=== PATIENT | female | born 1940 | race Caucasian/White ===

== ENCOUNTER → 2017-05-09 09:01 | Outpatient (CLI) | payer MEDICARE, SELFPAY ==
[2017-02-10 11:50] VITALS: BMI 35.9
[2017-02-10 13:02] VITALS: BP 142/69
[2017-05-09 10:07] LABS: AST(SGOT) 37 U/L (15-37); Alanine Aminotransfer ALT/SGPT 67 U/L (13-56); Albumin, Serum 3.8 g/dL (3.2-5.0); Alkaline Phosphatase 48 U/L (45-117); Bilirubin, Direct 0.11 mg/dL (0.00-0.30); Cholesterol 94 mg/dL (200); Globulin 3.5 g/dL (2.2-4.2); High Density Lipoprotein 33 mg/dL; Protein, Total 7.3 g/dL (6.4-8.2); Triglycerides 181 mg/dL; Very Low Density Lipoprotein 36 mg/dL (5-40)
== END ==
PROVIDERS: Family Provider Family Medicine; PCP Family Medicine; Visit Provider Internal Medicine Cardiovascular Disease
DX: E78.5 Hyperlipidemia, unspecified (principal); Z79.899 Other long term (current) drug therapy
CPT/HCPCS: 36415; 80061; 80076

== ENCOUNTER 2017-05-26 06:31 | Day surgery (SDC) | payer MEDICARE, SELFPAY ==
[2017-05-26 06:56] VITALS: BP 134/80; PULSE 73; RESP 16; TEMP 37; O2SAT 97; BMI 35.2
--- NOTE | 2017-05-26 08:07 | RAD_ITS ---
PROCEDURE: Lumbar facet injection DATE OF EXAMINATION: May 26, 2017. INDICATION: Female, 76 years old. Low back pain. FLUOROSCOPY TIME (if supplied): (0:15) minutes/seconds Intraoperative fluoroscopic images provided for left L3-S1 facet joint block. RAD/Lumbar Spine 2 or 3 Views IMPRESSION: Fluoroscopic services provided for left L3-S1 facet joint block. Electronically Signed: Tavon Bermudez MD at 10:02 EST Tel [phone], Service support ,
[2017-05-26] MEDS: Bupivacaine 0.25% 30 ML Vial (08:09)
[2017-05-26] MEDS: MethylPREDNISolone Acetate 80 MG/ML Vial (08:09)
[2017-05-26 08:19] VITALS: BP 108/55; BP 134/80; PULSE 62; RESP 14; TEMP 36.8; O2SAT 94
[2017-05-26 08:25] VITALS: BP 105/57; BP 134/80; PULSE 62; RESP 16; O2SAT 95
[2017-05-26 08:30] VITALS: BP 112/64; BP 134/80; PULSE 62; RESP 16; O2SAT 93
[2017-05-26 08:35] VITALS: BP 115/59; BP 134/80; PULSE 60; RESP 16; TEMP 36.3; O2SAT 94
[2017-05-26 09:02] VITALS: BP 134/80
--- NOTE | 2017-05-26 11:06 | OP.PCM_ITS ---
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 (2) Lumbosacral spondylosis Status: Chronic (3) Lumbar facet arthropathy Status: Chronic Report of Operation Date of Procedure: 05/26/17 Pre-Operative Diagnosis: Lumbosacral spondylosis, lumbosacral degenerative disc disease, lumbar facet arthropathy Post-Operative Diagnosis: Lumbosacral spondylosis, lumbosacral degenerative disc disease, lumbar facet arthropathy Surgery/Procedure Performed:: Right sided lumbar facet steroid injection L3, L4 , L5, S1 Description of Surgical Findings:: PROCEDURE: Right-sided lumbar facet steroid injection L3, L4, L5, S1 PREOPERATIVE DIAGNOSIS: Lumbosacral spondylosis, lumbosacral degenerative disc disease, and lumbar facet arthropathy POSTOPERATIVE DIAGNOSIS: Lumbosacral spondylosis, lumbosacral degenerative disc disease, and lumbar facet arthropathy ANESTHESIA: MAC COMPLICATIONS: None BLOOD LOSS: Minimal PROCEDURE IN DETAIL: History and physical today was reviewed. Risks and benefits of the procedure were explained. The patient understood, agreed to our procedure, and informed consent was obtained. IV inserted per routine protocol. The patient was taken to the operating room, placed in a prone position with a pillow positioned underneath the abdomen. The right side of his lower back was prepped and draped in a sterile fashion using iodine x3. Under fluoroscopy guidance, on AP view, L3 through S1 vertebral bodies were visualized. Skin and subcutaneous tissues were anesthetized with approximately 5 mL of 1% lidocaine using a 25-gauge regular needle. Under direct visualization with fluoroscopy at approximately 25-degree angle, starting on the right L3, ending on the right S1, passing through the L4-L5 using a 22-gauge 3 1/2-inch spinal needle, the needle was advanced via the skin. The tip of the needle was maneuvered and directed towards the superior and medial gutter of the transverse process at the vicinity of the medial branch. Once the tip of the needle was in contact with the bone, the needle pulled approximately 2 mm off the bone. After negative aspiration of blood with CSF and confirmation of AP as well as oblique view, a total of 8 mL of preservative-free 0.25% Marcaine with 80 mg of Depo- Medrol was injection in divided doses between those 4 levels. The needles were then removed intact. The patient experienced no signs or symptoms intrathecal, intravascular injection. The patient experienced no paraesthesia. The procedure was completed without any apparent difficult, any complication. The patient appeared to tolerate well. ASSESSMENT AND PLAN: This is a 76-year-old female with lumbosacral spondylosis, lumbosacral degenerative disc disease, and lumbar facet arthropathy, status post right-sided lumbar facet steroid injection L3 through S1. The patient will continue her current medications. The patient will follow in approximately 2 weeks for possible repeat of the procedure if indicated.
== END 2017-05-26 09:05 | disposition home or self-care (01) ==
LOC: SDC 06:32 → AC 06:34
PROVIDERS: Family Provider Family Medicine; PCP Family Medicine; Visit Provider Anesthesiology Pain Medicine
PROC: 3E0T3BZ Introduction of Anesthetic Agent into Peripheral Nerves and Plexi, Percutaneous Approach (ICD-10-PCS; CPT 64493; principal; 2017-05-26 07:45)
DX: M51.37 Other intervertebral disc degeneration, lumbosacral region (principal); M47.897 Other spondylosis, lumbosacral region; M48.061 Spinal stenosis, lumbar region without neurogenic claudication; M54.17 Radiculopathy, lumbosacral region; M47.817 Spondylosis without myelopathy or radiculopathy, lumbosacral region; M46.96 Unspecified inflammatory spondylopathy, lumbar region; M79.1 Myalgia; Z79.891 Long term (current) use of opiate analgesic; I25.10 Atherosclerotic heart disease of native coronary artery without angina pectoris; I35.0 Nonrheumatic aortic (valve) stenosis; I25.2 Old myocardial infarction; I10 Essential (primary) hypertension; Z95.1 Presence of aortocoronary bypass graft; J44.9 Chronic obstructive pulmonary disease, unspecified; Z87.891 Personal history of nicotine dependence; Z95.5 Presence of coronary angioplasty implant and graft; G25.81 Restless legs syndrome; K21.9 Gastro-esophageal reflux disease without esophagitis; E78.00 Pure hypercholesterolemia, unspecified; G47.30 Sleep apnea, unspecified; E89.0 Postprocedural hypothyroidism; D50.0 Iron deficiency anemia secondary to blood loss (chronic); Z79.82 Long term (current) use of aspirin; Z79.899 Other long term (current) drug therapy; Z85.828 Personal history of other malignant neoplasm of skin
CPT/HCPCS: 64493; 64494; 64495; 64483; 72100; J7120

== ENCOUNTER 2017-06-23 08:46 | Day surgery (SDC) | payer MEDICARE, SELFPAY ==
[2017-06-23 09:26] VITALS: BP 96/55; PULSE 64; RESP 16; TEMP 36.6; O2SAT 99; BMI 35.4
--- NOTE | 2017-06-23 09:55 | RAD_ITS ---
STUDY: X-RAY/FLUOROSCOPY - LUMBAR SPINE REASON FOR EXAM: Female, 76 years old. Lumbar facet blocks. TECHNIQUE: Fluoroscopic assistance was provided to Dr. Cardona. 5 fluoroscopic spot view(s) of the lumbar spine were obtained. COMPARISON: None FINDINGS: Images demonstrate successful percutaneous placement of needles for facet injections on the same side from L3 to S1. RAD/L/S Spine Min 4 Views IMPRESSION: Fluoroscopic guidance for percutaneous facet blocks L3-S1. Electronically Signed: Antonio Cruz MD at 14:03 EDT , Service support ,
[2017-06-23] MEDS: MethylPREDNISolone Acetate 80 MG/ML Vial (10:01)
[2017-06-23] MEDS: Bupivacaine 0.25% 30 ML Vial (10:01)
[2017-06-23 10:11] VITALS: BP 103/52; BP 96/55; PULSE 62; RESP 16; TEMP 36.9; O2SAT 95
[2017-06-23 10:15] VITALS: BP 101/59; BP 96/55; PULSE 60; RESP 16; O2SAT 93
[2017-06-23 10:20] VITALS: BP 119/64; BP 96/55; PULSE 62; RESP 16; O2SAT 94
[2017-06-23 10:25] VITALS: BP 120/66; BP 96/55; PULSE 60; RESP 16; TEMP 36.5; O2SAT 95
[2017-06-23 10:40] VITALS: BP 96/55
--- NOTE | 2017-06-23 10:46 | OP.PCM_ITS ---
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 (2) Lumbosacral spondylosis Status: Chronic Report of Operation Date of Procedure: 06/23/17 Pre-Operative Diagnosis: Lumbosacral spondylosis, lumbosacral degenerative disc disease, lumbar facet arthropathy Post-Operative Diagnosis: Lumbosacral spondylosis, lumbosacral degenerative disc disease, lumbar facet arthropathy Surgery/Procedure Performed:: Right-sided lumbar facet steroid injection L3, L4 , L5, S1 Description of Surgical Findings:: PROCEDURE: Right-sided lumbar facet steroid injection L3, L4, L5, S1 PREOPERATIVE DIAGNOSIS: Lumbosacral spondylosis, lumbosacral degenerative disc disease, and lumbar facet arthropathy POSTOPERATIVE DIAGNOSIS: Lumbosacral spondylosis, lumbosacral degenerative disc disease, and lumbar facet arthropathy ANESTHESIA: MAC COMPLICATIONS: None BLOOD LOSS: Minimal PROCEDURE IN DETAIL: History and physical today was reviewed. Risks and benefits of the procedure were explained. The patient understood, agreed to our procedure, and informed consent was obtained. IV inserted per routine protocol. The patient was taken to the operating room, placed in a prone position with a pillow positioned underneath the abdomen. The right side of his lower back was prepped and draped in a sterile fashion using iodine x3. Under fluoroscopy guidance, on AP view, L3 through S1 vertebral bodies were visualized. Skin and subcutaneous tissues were anesthetized with approximately 5 mL of 1% lidocaine using a 25-gauge regular needle. Under direct visualization with fluoroscopy at approximately 25-degree angle, starting on the right L3, ending on the right S1, passing through the L4-L5 using a 22-gauge 3 1/2-inch spinal needle, the needle was advanced via the skin. The tip of the needle was maneuvered and directed towards the superior and medial gutter of the transverse process at the vicinity of the medial branch. Once the tip of the needle was in contact with the bone, the needle pulled approximately 2 mm off the bone. After negative aspiration of blood with CSF and confirmation of AP as well as oblique view, a total of 8 mL of preservative-free 0.25% Marcaine with 80 mg of Depo- Medrol was injection in divided doses between those 4 levels. The needles were then removed intact. The patient experienced no signs or symptoms intrathecal, intravascular injection. The patient experienced no paraesthesia. The procedure was completed without any apparent difficult, any complication. The patient appeared to tolerate well. ASSESSMENT AND PLAN: This is a 76-year-old female with lumbosacral spondylosis, lumbosacral degenerative disc disease and lumbar facet arthropathy, status post right-sided lumbar facet steroid injection L3 through S1. The patient will continue her current medications. The patient will follow in approximately 2 weeks for possible repeat of the procedure if indicated.
== END 2017-06-23 10:45 | disposition home or self-care (01) ==
LOC: SDC 08:47 → AC 08:48
PROVIDERS: Family Provider Family Medicine; PCP Family Medicine; Visit Provider Anesthesiology Pain Medicine
PROC: 3E0T3BZ Introduction of Anesthetic Agent into Peripheral Nerves and Plexi, Percutaneous Approach (ICD-10-PCS; CPT 64493; principal; 2017-06-23 10:20)
DX: M51.37 Other intervertebral disc degeneration, lumbosacral region (principal); M47.817 Spondylosis without myelopathy or radiculopathy, lumbosacral region; J44.9 Chronic obstructive pulmonary disease, unspecified; E03.9 Hypothyroidism, unspecified; I25.2 Old myocardial infarction; I25.10 Atherosclerotic heart disease of native coronary artery without angina pectoris; M54.17 Radiculopathy, lumbosacral region; M12.9 Arthropathy, unspecified; M46.96 Unspecified inflammatory spondylopathy, lumbar region; M79.1 Myalgia; Z79.891 Long term (current) use of opiate analgesic; Z79.82 Long term (current) use of aspirin; Z87.891 Personal history of nicotine dependence; I10 Essential (primary) hypertension; K21.9 Gastro-esophageal reflux disease without esophagitis; E78.00 Pure hypercholesterolemia, unspecified
CPT/HCPCS: 01935; 64493; 64494; 64495; 64483; 72110; J7120

== ENCOUNTER 2017-07-21 09:49 | Day surgery (SDC) | payer MEDICARE, SELFPAY ==
[2017-07-21 10:21] VITALS: BP 136/57; PULSE 61; RESP 16; TEMP 36.6; O2SAT 96; BMI 35.7
--- NOTE | 2017-07-21 11:10 | RAD_ITS ---
STUDY: Fluoroscopy LUMBAR SPINE REASON FOR EXAM: Female, 76 years old. Fluoroscopic imaging interpretation only TECHNIQUE: 11 fluoroscopic view(s) of the lumbar spine were obtained. COMPARISON: None FINDINGS: 11 fluoroscopic images are provided. There is a marker next to the level of L3-L4 and L5. On this examination there is radiopaque needle markers adjacent to the L3 L4 L5 and S1. RAD/Lumbar Spine 2 or 3 Views IMPRESSION: 11 fluoroscopic images showing metallic markers at different levels for procedure. Electronically Signed: Katie Samuels MD at 17:02 EDT Tel , Service support ,
[2017-07-21] MEDS: MethylPREDNISolone Acetate 80 MG/ML Vial (11:15)
[2017-07-21] MEDS: Bupivacaine 0.25% 30 ML Vial (11:16)
[2017-07-21 11:33] VITALS: BP 112/62; BP 136/57; PULSE 65; RESP 16; TEMP 36.2; O2SAT 94
[2017-07-21 11:40] VITALS: BP 136/57; BP 99/63; PULSE 62; RESP 16; O2SAT 92
[2017-07-21 11:45] VITALS: BP 105/71; BP 136/57; PULSE 62; RESP 16; O2SAT 92
[2017-07-21 11:50] VITALS: BP 110/61; BP 136/57; PULSE 63; RESP 16; TEMP 36.4; O2SAT 94
[2017-07-21 12:35] VITALS: BP 136/57
--- NOTE | 2017-07-21 15:58 | PCM.OPRPT ---
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 (2) Lumbar facet arthropathy Status: Chronic (3) Lumbosacral spondylosis Status: Chronic Report of Operation Date of Procedure: 07/21/17 Pre-Operative Diagnosis: Lumbosacral spondylosis, lumbosacral degenerative disc disease, lumbar facet arthropathy Post-Operative Diagnosis: Lumbosacral spondylosis, lumbosacral degenerative disc disease, lumbar facet arthropathy Surgery/Procedure Performed:: Right sided lumbar radiofrequency ablation of the medial branch L3, L4, L5, S1 Description of Surgical Findings:: PROCEDURE: Right-sided radiofrequency ablation of the medial branch L3, L4, L5, S1 PREOPERATIVE DIAGNOSES: Lumbosacral spondylosis, lumbosacral degenerative disc disease, lumbar facet arthropathy POSTOPERATIVE DIAGNOSES: Lumbosacral spondylosis, lumbosacral degenerative disc disease, lumbar facet arthropathy ANESTHESIA: MAC COMPLICATIONS: None BLOOD LOSS: Minimal PROCEDURE IN DETAIL: History and physical today was reviewed. Risks and benefits of procedure explained. The patient understood, agreed to the procedure and informed consent was obtained. IV inserted per routine protocol. The patient was taken to the operating room, placed in the prone position with a pillow positioned underneath the abdomen. The right side of the lower back was prepped and draped in a sterile fashion using iodine x 3. Under fluoroscopy guidance, on an oblique view, the L3 through S1 vertebral bodies were visualized. The skin and subcutaneous tissue was anesthetized with approximately 10 mL of 1% lidocaine using a 25-gauge regular needle. Under direct visualization with fluoroscopy at approximately 25-degree angle, starting on the right L3, ending on the right S1 passing through the L4-L5 using a 20-gauge 15 cm with a 10 mm curved active tip radiofrequency ablation needle the needle passed through the skin. The tip of the needle was maneuvered and directed towards the superior and medial gutter of the transverse process at the vicinity of the medial branch. Once the tip of the needle was in contact with the bone, the needle pulled approximately 2 mm up the bone. The stylet of each needle was then removed. After negative aspiration of blood with CSF and confirmation of AP as well as oblique view, radiofrequency ablation probe was then inserted at each level. Impedance was then recorded at L3 to be 303, at L4 245, at L5 323, at S1 261 ohm. Motor-evoked potential was then initiated to 1.5 volt without any motor response at each corresponding level. The probe was then removed intact and a total of 6 mL preservative-free 1% lidocaine was injected in divided doses between those 4 levels after negative aspiration of blood with CSF. The radiofrequency ablation probe was then reinserted after confirmation of AP, oblique as well as lateral view. Radiofrequency ablation was then initiated to 80 degrees Celsius for 90 seconds at each level. Once concluded, the probe was then removed intact and a total of 6 mL of preservative-free 0.25% Marcaine with 40 mg Depo-Medrol was injected in divided doses between those 4 levels. The needles were then removed intact. The patient experienced no signs or symptoms of intrathecal, intravascular injection. The patient experienced no paraesthesia. The procedure was completed without any apparent difficulty, any complication. The patient appeared to tolerate well. Sensory as well as motor exam was unchanged from prior to procedure. ASSESSMENT AND PLAN: This is a 76-year-old Female with lumbosacral spondylosis, lumbosacral degenerative disc disease, lumbar facet arthropathy, status post right-sided radiofrequency ablation of the medial branch L3 through S1. The patient will continue her current medications. The patient will follow up in approximately 2 weeks for reevaluation.
== END 2017-07-21 12:35 | disposition home or self-care (01) ==
LOC: SDC 09:52 → AC 10:38
PROVIDERS: Family Provider Family Medicine; PCP Family Medicine; Visit Provider Anesthesiology Pain Medicine
PROC: (CPT 62282; principal; 2017-07-21 10:55)
DX: M51.17 Intervertebral disc disorders with radiculopathy, lumbosacral region (principal); J44.9 Chronic obstructive pulmonary disease, unspecified; M12.9 Arthropathy, unspecified; M47.817 Spondylosis without myelopathy or radiculopathy, lumbosacral region; M46.96 Unspecified inflammatory spondylopathy, lumbar region; M79.1 Myalgia; Z79.891 Long term (current) use of opiate analgesic; I25.10 Atherosclerotic heart disease of native coronary artery without angina pectoris; I10 Essential (primary) hypertension; E03.9 Hypothyroidism, unspecified; I25.2 Old myocardial infarction; Z95.5 Presence of coronary angioplasty implant and graft; Z87.891 Personal history of nicotine dependence; Z79.82 Long term (current) use of aspirin
CPT/HCPCS: 01992; 62282 ×4; 72100; 72110; 76000; J7120

== ENCOUNTER → 2017-07-31 09:46 | Outpatient (CLI) | payer MEDICARE, SELFPAY ==
--- NOTE | 2017-07-31 13:21 | PFT ---
INTRODUCTION: The patient is a 76-year-old female currently under the care of Yenifer Cope NP that presents for pulmonary function testing secondary to a diagnosis of COPD. Respiratory therapy reports good patient effort and reports no other concerns. Bronchodilators were used during testing. INTERPRETATION: Forced expiration spirometry demonstrates the presence of a mild large airways obstructive ventilatory defect. There was no significant response to aerosolized bronchodilators. Spirograms are of fair quality and do not plateau indicating slow emptying of the lungs. Body plethysmography was performed and reveals an elevated TLC and RV, indicative of underlying hyperinflation and air-trapping. Diffusing capacity by single breath CO is moderately reduced at 55% of predicted. 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
--- NOTE | 2017-07-31 13:25 | PFT_ITS ---
INTRODUCTION: The patient is a 76-year-old female currently under the care of Yenifer Cope NP that presents for pulmonary function testing secondary to a diagnosis of COPD. Respiratory therapy reports good patient effort and reports no other concerns. Bronchodilators were used during testing. INTERPRETATION: Forced expiration spirometry demonstrates the presence of a mild large airways obstructive ventilatory defect. There was no significant response to aerosolized bronchodilators. Spirograms are of fair quality and do not plateau indicating slow emptying of the lungs. Body plethysmography was performed and reveals an elevated TLC and RV, indicative of underlying hyperinflation and air- trapping. Diffusing capacity by single breath CO is moderately reduced at 55% of predicted. 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
== END ==
PROVIDERS: Family Provider Family Medicine; PCP Family Medicine; Visit Provider Nurse Practitioner Acute Care
DX: J44.9 Chronic obstructive pulmonary disease, unspecified (principal); G47.33 Obstructive sleep apnea (adult) (pediatric)
CPT/HCPCS: 94060; 94726; 94729

== ENCOUNTER → 2017-08-01 10:48 | Outpatient (CLI) | payer MEDICARE, SELFPAY ==
[2017-08-01 11:33] VITALS: PULSE 61; PULSE 64; PULSE 84; PULSE 85; PULSE 87; PULSE 88; PULSE 90; PULSE 92; O2SAT 94; O2SAT 95; O2SAT 96; O2SAT 97; O2SAT 98
--- NOTE | 2017-08-01 12:16 | PCM.PSN.6M ---
PSN 6 Minute Walk Test - 6 Minute Walk Test 6 Minute Walk Test: 6 Minute Walk Test PSN:6-Minute Walk Test Start: 08/01/17 11:32 Freq: Status: Active Protocol: [id number] Document 08/01/17 11:33 [facility] (Rec: 08/01/17 11:37 [facility] [id number]) 6 Minute Walk Test Date Performed 08/01/17 Time Performed 11:15 Height 5 ft Weight: 180 lb Weight in Pounds 180.[address]: Yenifer Cope Assistive device used: None Pre-test Oxygen Delivery Method Room Air Pulse Ox (%) 98 Pulse Rate (60-100 beats/min) 61 Dyspnea Lula Scale (0-10) 0 1st minute Oxygen Delivery Method Room Air Pulse Ox (%) 96 Pulse Rate (60-100 beats/min) 84 Dyspnea Lula Scale (0-10) 0 2nd minute Oxygen Delivery Method Room Air Pulse Ox (%) 95 Pulse Rate (60-100 beats/min) 85 Dyspnea Lula Scale (0-10) 0 3rd minute Oxygen Delivery Method Room Air Pulse Ox (%) 94 Pulse Rate (60-100 beats/min) 87 Dyspnea Lula Scale (0-10) 0 4th minute Oxygen Delivery Method Room Air Pulse Ox (%) 96 Pulse Rate (60-100 beats/min) 88 Dyspnea Lula Scale (0-10) 0 5th minute Oxygen Delivery Method Room Air Pulse Ox (%) 95 Pulse Rate (60-100 beats/min) 90 Dyspnea Lula Scale (0-10) 0 6th minute Oxygen Delivery Method Room Air Pulse Ox (%) 96 Pulse Rate (60-100 beats/min) 92 Dyspnea Lula Scale (0-10) 0 Post-test Oxygen Delivery Method Room Air Pulse Ox (%) 97 Pulse Rate (60-100 beats/min) 64 Dyspnea Lula Scale (0-10) 0 Full Laps Walked 20 Partial Lap, Number of Tiles Walked 114 Total Distance Walked (ft) 1294 - Interpretation Interpretation: The patient ambulated 1294 feet over the course of 6 minutes on room air without assistive devices or breaks. Pretesting oxygen saturation was noted to be 98% on room air. With ambulation, the francoise oxygen saturation was 94%. 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 - Recommendations Recommendations: There is no indication for the use of supplemental oxygen at this time. However, close interval follow-up is recommended given the degree of oxygen desaturation noted during this study.
== END ==
PROVIDERS: Family Provider Family Medicine; PCP Family Medicine; Visit Provider Nurse Practitioner Acute Care
DX: J44.9 Chronic obstructive pulmonary disease, unspecified (principal); G47.33 Obstructive sleep apnea (adult) (pediatric)
CPT/HCPCS: 94618

== ENCOUNTER 2017-08-25 09:19 | Day surgery (SDC) | payer MEDICARE, SELFPAY ==
[2017-08-25 09:38] VITALS: BP 134/76; PULSE 65; RESP 14; TEMP 36; O2SAT 98; BMI 35.6
[2017-08-25] MEDS: Bupivacaine 0.25% 30 ML Vial (10:09)
[2017-08-25] MEDS: MethylPREDNISolone Acetate 80 MG/ML Vial (10:10)
--- NOTE | 2017-08-25 10:10 | RAD_ITS ---
STUDY: X-RAY - LUMBAR SPINE REASON FOR EXAM: Female, 76 years old. Documentation of fluoroscopic radiation dose during radiofrequency ablation. TECHNIQUE: 6 view(s) of the lumbar spine were obtained. COMPARISON: Radiographs of the lumbar spine dated July 21, 2017. FINDINGS: Twenty four seconds of fluoroscopic radiation was utilized during the procedure. Estimated dose is 9.67 mGy. Please see procedure report by Dr. Cardona for additional details. RAD/L/S Spine Min 4 Views IMPRESSION: Documentation of fluoroscopic radiation dose. Electronically Signed: Pepper Merritt MD at 8:00 EDT , Service support ,
[2017-08-25 10:20] VITALS: BP 124/69; BP 134/76; PULSE 58; RESP 18; TEMP 36.2; O2SAT 97
[2017-08-25 10:25] VITALS: BP 114/68; BP 134/76; PULSE 58; RESP 18; O2SAT 92
[2017-08-25 10:30] VITALS: BP 134/67; BP 134/76; PULSE 59; RESP 18; O2SAT 96
[2017-08-25 10:35] VITALS: BP 116/70; BP 134/76; PULSE 57; RESP 18; TEMP 36.2; O2SAT 96
[2017-08-25 10:43] VITALS: BP 116/70; BP 134/76
--- NOTE | 2017-08-25 13:20 | PCM.OPRPT ---
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 (2) Lumbar facet arthropathy Status: Chronic (3) Lumbosacral spondylosis Status: Chronic Report of Operation Date of Procedure: 08/25/17 Pre-Operative Diagnosis: Lumbosacral spondylosis, lumbosacral degenerative disc disease, lumbar facet arthropathy Post-Operative Diagnosis: Lumbosacral spondylosis, lumbosacral degenerative disc disease, lumbar facet arthropathy Surgery/Procedure Performed:: Left sided lumbar radiofrequency ablation of the medial branch at L3, L4, L5, S1 Description of Surgical Findings:: PROCEDURE: Left-sided radiofrequency ablation of the medial branch L3, L4, L5, S1 PREOPERATIVE DIAGNOSES: Lumbosacral spondylosis, lumbosacral degenerative disc disease, lumbar facet arthropathy POSTOPERATIVE DIAGNOSES: Lumbosacral spondylosis, lumbosacral degenerative disc disease, lumbar facet arthropathy ANESTHESIA: MAC COMPLICATIONS: None BLOOD LOSS: Minimal PROCEDURE IN DETAIL: History and physical today was reviewed. Risks and benefits of procedure explained. The patient understood, agreed to the procedure and informed consent was obtained. IV inserted per routine protocol. The patient was taken to the operating room, placed in the prone position with a pillow positioned underneath the abdomen. The right side of the lower back was prepped and draped in a sterile fashion using iodine x 3. Under fluoroscopy guidance, on an oblique view, the L3 through S1 vertebral bodies were visualized. The skin and subcutaneous tissue was anesthetized with approximately 10 mL of 1% lidocaine using a 25-gauge regular needle. Under direct visualization with fluoroscopy at approximately 25-degree angle, starting on the left L3, ending on the left S1 passing through the L4-L5 using a 20-gauge 15 cm with a 10 mm curved active tip radiofrequency ablation needle the needle passed through the skin. The tip of the needle was maneuvered and directed towards the superior and medial gutter of the transverse process at the vicinity of the medial branch. Once the tip of the needle was in contact with the bone, the needle pulled approximately 2 mm up the bone. The stylet of each needle was then removed. After negative aspiration of blood with CSF and confirmation of AP as well as oblique view, radiofrequency ablation probe was then inserted at each level. Impedance was then recorded at L3 to be 247, at L4 252, at L5 291, at S1 248 ohm. Motor-evoked potential was then initiated to 1.5 volt without any motor response at each corresponding level. The probe was then removed intact and a total of 6 mL preservative-free 1% lidocaine was injected in divided doses between those 4 levels after negative aspiration of blood with CSF. The radiofrequency ablation probe was then reinserted after confirmation of AP, oblique as well as lateral view. Radiofrequency ablation was then initiated to 80 degrees Celsius for 90 seconds at each level. Once concluded, the probe was then removed intact and a total of 6 mL of preservative-free 0.25% Marcaine with 40 mg Depo-Medrol was injected in divided doses between those 4 levels. The needles were then removed intact. The patient experienced no signs or symptoms of intrathecal, intravascular injection. The patient experienced no paraesthesia. The procedure was completed without any apparent difficulty, any complication. The patient appeared to tolerate well. Sensory as well as motor exam was unchanged from prior to procedure. ASSESSMENT AND PLAN: This is a 76-year-old female with lumbosacral spondylosis, lumbosacral degenerative disc disease, lumbar facet arthropathy, status post left-sided radiofrequency ablation of the medial branch L3 through S1. The patient will continue her current medications. The patient will follow up in approximately 2 weeks for reevaluation.
== END 2017-08-25 10:57 | disposition home or self-care (01) ==
LOC: SDC 09:22 → AC 10:11
PROVIDERS: Family Provider Family Medicine; PCP Family Medicine; Visit Provider Anesthesiology Pain Medicine
PROC: (CPT 62282; principal; 2017-08-25 10:05)
DX: M47.817 Spondylosis without myelopathy or radiculopathy, lumbosacral region (principal); M51.37 Other intervertebral disc degeneration, lumbosacral region; M46.96 Unspecified inflammatory spondylopathy, lumbar region; J44.9 Chronic obstructive pulmonary disease, unspecified; E03.9 Hypothyroidism, unspecified; I25.10 Atherosclerotic heart disease of native coronary artery without angina pectoris; I25.2 Old myocardial infarction; Z87.891 Personal history of nicotine dependence; Z79.891 Long term (current) use of opiate analgesic; M79.1 Myalgia
CPT/HCPCS: 62282 ×3; 72110; 76000; J7120

== ENCOUNTER → 2017-12-04 10:17 | Outpatient (CLI) | payer MEDICARE, SELFPAY ==
[2017-12-04 12:31] LABS: AST(SGOT) 31 U/L (15-37); Alanine Aminotransfer ALT/SGPT 69 U/L (13-56); Albumin, Serum 3.6 g/dL (3.2-5.0); Alkaline Phosphatase 37 U/L (45-117); Bilirubin, Direct 0.12 mg/dL (0.00-0.30); Cholesterol 103 mg/dL (200); Globulin 3.6 g/dL (2.2-4.2); High Density Lipoprotein 30 mg/dL; Protein, Total 7.2 g/dL (6.4-8.2); Triglycerides 146 mg/dL; Very Low Density Lipoprotein 29 mg/dL (5-40)
== END ==
PROVIDERS: Family Provider Family Medicine; PCP Family Medicine; Visit Provider Internal Medicine Cardiovascular Disease
DX: I25.810 Atherosclerosis of coronary artery bypass graft(s) without angina pectoris (principal); E78.5 Hyperlipidemia, unspecified; Z95.5 Presence of coronary angioplasty implant and graft; Z95.1 Presence of aortocoronary bypass graft
CPT/HCPCS: 36415; 80061; 80076

== ENCOUNTER → 2017-12-12 13:23 | Outpatient (CLI) | payer MEDICARE, SELFPAY | PROVIDERS: Family Provider Family Medicine; PCP Family Medicine; Visit Provider Internal Medicine Cardiovascular Disease | DX: I25.2 Old myocardial infarction (principal); Z95.1 Presence of aortocoronary bypass graft; Z95.5 Presence of coronary angioplasty implant and graft; I25.810 Atherosclerosis of coronary artery bypass graft(s) without angina pectoris; Z95.2 Presence of prosthetic heart valve | CPT/HCPCS: 93306; A4216 ==

== ENCOUNTER → 2017-12-17 09:23 | Outpatient (CLI) | payer MEDICARE, SELFPAY ==
--- NOTE | 2017-12-17 09:25 | STE_ITS ---
Reason For Study: CHEST PAIN Stress Results Protocol: Dobutamine Stress Echocardiogram Maximum Predicted HR: 142 bpm Target HR: 121 bpm% Maximum Predicted HR: 92 % DurationHeart Rate Stage (mm:ss) (bpm) BPDos e BASELINE 55 150/60 DSE- 10 MCG 3:12 66 146/6510.00 DSE- 20 MCG 3:47 10 7 134/8120.00 DSE- 30 MCG 2:01 13 1 165/5330.00 RECOVERY 71 133/46 Stress Duration: 9:00 mm:ss Maximum Stress HR: 131 bpm Baseline Echocardiogram Findings The 3D full volume ejection fraction is 65 %. Stress Echo Wall motion Data Resting WMIntermediate WMStress WM Resting Wall Motion Wall Motion Stress No regional wall motion No regional wall motion abnormalities noted. abnormalities noted. EKG Data The baseline ECG demonstrates normal sinus rhythm with at rate of _ beats per minute. The patient was titrated from 10 mcg to a maximun of 30 mcg of dobutamine during the stress. The maximum heart rate attained was 131 beats per minute. This was 92% of maximum predicted heart rate. During dobutamine infusion, there were no ST or T wave changes noted to suggest ischemia. No clinical angina was noted. No arrhythmias noted. Interpretation Summary The 3D full volume ejection fraction is 65 %. The patient was titrated from 10 mcg to a maximun of 30 mcg of dobutamine during the stress. Normal, adequate, dobutamine echocardiogram. Negative for ischemia by EKG and echocardiographic criteria. No anginal symptoms noted. No arrhythmias noted. Appropriate blood pressure response to dobutamine. Final LVEF is 75%. Test terminated due to the attainment of target heart rate. Ordering Physician: Noe Rodriguez Referring Physician: Noe Rodriguez Performed By: Erin Levine, EAN, RVT
== END ==
PROVIDERS: Family Provider Family Medicine; PCP Family Medicine; Visit Provider Internal Medicine Cardiovascular Disease
DX: I25.810 Atherosclerosis of coronary artery bypass graft(s) without angina pectoris (principal); R07.9 Chest pain, unspecified; R06.09 Other forms of dyspnea; Z95.2 Presence of prosthetic heart valve
CPT/HCPCS: 93017; 93350; J7040

== ENCOUNTER 2018-01-19 09:13 | Day surgery (SDC) | payer MEDICARE, SELFPAY ==
[2018-01-19 10:04] VITALS: BP 156/75; PULSE 60; RESP 14; TEMP 36.1; O2SAT 97; BMI 34.9
--- NOTE | 2018-01-19 10:15 | RAD_ITS ---
STUDY: X-RAY - RIGHT KNEE REASON FOR EXAM: Female, 77 years old. Genicular nerve injection TECHNIQUE: 3 view(s) of the knee. COMPARISON: None. FINDINGS: Intraoperative spot fluoroscopy images demonstrate needle placement around the right knee. No evidence of fracture. Total fluoroscopy time of 9 seconds. RAD/Fluoro Guided Needle Placement IMPRESSION: As above Electronically Signed: Willian De La Cruz DO at 10:08 EDT Tel , Service support ,
[2018-01-19] MEDS: MethylPREDNISolone Acetate 80 MG/ML Vial (10:30)
[2018-01-19] MEDS: Bupivacaine 0.5% PF 10 ML VIAL (10:30)
[2018-01-19 10:41] VITALS: BP 100/52; BP 156/75; PULSE 58; RESP 16; TEMP 36.3; O2SAT 93
[2018-01-19 10:45] VITALS: BP 156/75; BP 96/50; PULSE 58; RESP 16; O2SAT 92
[2018-01-19 10:50] VITALS: BP 104/62; BP 156/75; PULSE 55; RESP 16; O2SAT 93
[2018-01-19 10:55] VITALS: BP 111/49; BP 156/75; PULSE 55; RESP 16; TEMP 36.2; O2SAT 93
--- NOTE | 2018-01-19 15:55 | OP.PCM_ITS ---
Problem List (1) Unilateral primary osteoarthritis, right knee Status: Chronic Report of Operation Date of Procedure: 01/19/18 Pre-Operative Diagnosis: Osteoarthritis of the right knee Post-Operative Diagnosis: Osteoarthritis of the right knee Surgery/Procedure Performed:: Right knee superior medial, superior lateral, inferior medial genicular nerves steroid injection under fluoroscopic guidance Description of Surgical Findings:: PROCEDURE: Right knee superior medial, superior lateral, inferior medial genicular nerve steroid injection under fluoroscopic guidance PREOPERATIVE DIAGNOSIS: Osteoarthritis of the right knee POSTOPERATIVE DIAGNOSIS: Osteoarthritis of the right knee ANESTHESIA: MAC COMPLICATIONS: None BLOOD LOSS: Minimal PROCEDURE IN DETAIL: History and physical today was reviewed. Risks and benefits of the procedure were explained. The patient understood, agreed to our procedure, and informed consent was obtained. IV inserted per routine protocol. The patient was taken to the operating room, placed in a supine position the right knee area was prepped and draped in a sterile fashion using iodine x3 under fluoroscopy guidance AP view the right knee was visualized the skin and subcutaneous tissue and size approximately 5 cc of 1% lidocaine at the vicinity of the superior medial superior lateral inferior medial genicular nerves under direct visualization fluoroscopy on AP followed by the lateral view using a 22-gauge 3-1/2 inch spinal needle starting at the right superior medial ending at the right inferior medial passing through the right superior lateral genicular nerves the needle passed through the skin the tip of the needle's maneuver and directed towards the each corresponding nerve once the tip of the needle was at the diaphyseal junction of each corresponding area after confirmation of AP as well as lateral view after negative aspiration for blood a total of 12 cc of preservative-free 0.25% Marcaine with 80 mg of Depo- Medrol were injected in divided doses between those 3 levels the needles were then removed intact patient experienced no sinus symptoms of intravascular injection patient experienced no paresthesia. The procedure was completed without any apparent difficult, any complication. The patient appeared to tolerate well. ASSESSMENT AND PLAN: This is a 77-year-old female with osteoarthritis of the right knee status post right knee superior medial superior lateral inferior medial genicular nerve steroid injection under fluoroscopic guidance . The patient will continue her current medications. The patient will follow in approximately 2 weeks for possible repeat of the procedure if indicated.
== END 2018-01-19 11:19 | disposition home or self-care (01) ==
LOC: SDC 09:14 → AC 09:35
PROVIDERS: Family Provider Family Medicine; PCP Family Medicine; Referring Provider Anesthesiology Pain Medicine; Visit Provider Anesthesiology Pain Medicine
PROC: 3E0U3GC Introduction of Other Therapeutic Substance into Joints, Percutaneous Approach (ICD-10-PCS; CPT 20610; principal; 2018-01-19 10:10)
DX: M17.11 Unilateral primary osteoarthritis, right knee (principal); J44.9 Chronic obstructive pulmonary disease, unspecified; I25.10 Atherosclerotic heart disease of native coronary artery without angina pectoris; E03.9 Hypothyroidism, unspecified; I25.2 Old myocardial infarction; Z87.891 Personal history of nicotine dependence; M51.37 Other intervertebral disc degeneration, lumbosacral region; M54.17 Radiculopathy, lumbosacral region; M47.817 Spondylosis without myelopathy or radiculopathy, lumbosacral region; M46.96 Unspecified inflammatory spondylopathy, lumbar region; Z79.891 Long term (current) use of opiate analgesic
CPT/HCPCS: 01992; 27096; 76000; 77002; J7120; J3490

== ENCOUNTER → 2018-07-02 10:40 | Outpatient (CLI) | payer MEDICARE, SELFPAY ==
[2018-06-18 13:14] VITALS: BMI 34.2
[2018-07-02 12:54] LABS: AST(SGOT) 27 U/L (15-37); Alanine Aminotransfer ALT/SGPT 50 U/L (13-56); Albumin, Serum 3.9 g/dL (3.2-5.0); Alkaline Phosphatase 47 U/L (45-117); Cholesterol 115 mg/dL (200); Globulin 3.4 g/dL (2.2-4.2); High Density Lipoprotein 35 mg/dL; Protein, Total 7.3 g/dL (6.4-8.2); Triglycerides 134 mg/dL; Very Low Density Lipoprotein 27 mg/dL (5-40)
== END ==
PROVIDERS: Family Provider Family Medicine; PCP Family Medicine; Visit Provider Internal Medicine Cardiovascular Disease
DX: E78.5 Hyperlipidemia, unspecified (principal)
CPT/HCPCS: 36415; 80061; 80076

== ENCOUNTER → 2018-07-16 14:05 | Outpatient (CLI) | payer MEDICARE, SELFPAY ==
[2018-02-23 09:28] VITALS: BMI 34.9
[2018-07-02 11:03] VITALS: BMI 33.7
--- NOTE | 2018-07-16 14:11 | BI_ITS ---
MAMMOGRAPHY - BILATERAL SCREENING REASON FOR EXAM: Female, 77 years old. Routine annual screening examination. PERTINENT HISTORY: Sister with breast cancer. Aunt with breast cancer. TECHNIQUE: Digital bilateral breast sobeida (3D mammographic acquisition) in the CC and MLO projections. 2-D mediolateral oblique (MLO) and craniocaudad (CC) views of both breasts were obtained. CAD: Full Field Digital Mammography with Computer Added Detection was performed. COMPARISON: Comparison is made with prior study dated May 08, 2016 and April 11, 2015. FINDINGS: Breast Composition: There are scattered areas of fibroglandular density. There is a 6.3 mm x 7.6 mm well-defined nodule in the inferior medial retroareolar region of the left breast. Correlation with ultrasound is recommended. Stable asymmetry of breast tissue with more breast tissue is seen in the upper outer quadrant of the left breast as compared to the right side. This is unchanged. Stable bilateral axillary lymph nodes as well as scattered bilateral calcifications. No other significant abnormalities are identified. BI/SCREENING MAMM (CAD), BILAT IMPRESSION: 6.3 mm x 7.6 mm well-defined nodule in the inferior medial retroareolar region of the left breast correlation with ultrasound is recommended. The remainder of examination is unchanged. ASSESSMENT CATEGORY: BIRADS Category 0: Incomplete. Need additional imaging evaluation. A letter regarding these results will be sent to the patient by the facility within 30 days. Approximately 10% of breast cancers are not detected by mammography. A normal mammogram should not delay biopsy of a clinically suspicious abnormality. [id number] Electronically Signed: Tavon Bermudez, at 15:50 EDT , Service support ,
--- NOTE | 2018-07-16 14:19 | BD_ITS ---
STUDY: DUAL ENERGY X-RAY ABSORPTIOMETRY / DXA REASON FOR EXAM: Female, 77 years old. The patient is postmenopausal. Loss of height. TECHNIQUE: Bone Mineral Density (BMD) measurements of lumbar spine and bilateral hips were obtained. COMPARISON: Comparison is made with prior examination dated April 11, 2015. FINDINGS: Lumbar Spine (L1-L4): g/cm2 (1.315) / T-score (1.0) / Z-score (2.8) Findings are suggestive of normal bone density with a low fracture risk. Left Femur Total: g/cm2 (1.008) / T-score (0.0) / Z-score (1.9) Left Femoral Neck: g/cm2 (0.863) / T-score (-1.3) / Z-score (0.8) Right Femur Total: g/cm2 (0.941) / T-score (-0.5) / Z-score (1.4) Right Femoral Neck: g/cm2 (0.807) / T-score (-1.7) / Z-score (0.4) The T-Scores on the most recent prior examination were: Lumbar Spine (L1-L4): There has been worsening of bone density since the previous examination. Left Femur Total: which represents a worsening of 7.3%. Right Femur Total: which represents a worsening of 2.4%. BD/Dexa Bone Density Study IMPRESSION: The patient is considered osteopenic as outlined below according to World [employer] Organization (WHO) criteria with a moderate fracture risk. There has been worsening of bone density since the previous examination. Reference Information: The T-score is the number of standard deviations above or below the standard which is normal for young adults at their peak bone mineral density. The World Health Organization (WHO) interprets the T-scores as follows: Above -1 Normal bone density Between -1 and -2.5 Osteopenia Equal to / or below -2.5 Osteoporosis As a practical clinical guideline, osteopenia may be graded as follows: Mild -1 through -1.5 Moderate -1.6 through -2.0 Severe -2.1 through -2.4 The Z-score is the number of standard deviations above or below age-matched controls. A Z-score of less than -1.5 would be considered abnormal. References: 1. NIH Osteoporosis and Related Bone Diseases http://www.osteo.org 2. International Society for Clinical Densitometry http://www.iscd.org 3. National Osteoporosis Foundation http://www.nof.org Electronically Signed: Tavon Bermudez, at 9:33 EDT , Service support ,
== END ==
PROVIDERS: Family Provider Family Medicine; PCP Family Medicine; Referring Provider Family Medicine; Visit Provider Family Medicine
DX: Z12.31 Encounter for screening mammogram for malignant neoplasm of breast (principal); Z78.0 Asymptomatic menopausal state
CPT/HCPCS: 77063; 77067; 77080

== ENCOUNTER → 2018-08-05 10:30 | Outpatient (CLI) | payer MEDICARE, SELFPAY ==
[2018-02-23 09:28] VITALS: BMI 34.9
[2018-07-17 09:33] VITALS: BMI 34.2
[2018-08-05 11:16] VITALS: PULSE 68; PULSE 72; PULSE 78; PULSE 83; PULSE 89; O2SAT 94; O2SAT 95; O2SAT 96
--- NOTE | 2018-08-05 13:16 | US_ITS ---
STUDY: ULTRASOUND BREAST - LEFT REASON FOR EXAM: Female, 77 years old. Abnormal screening mammogram. TECHNIQUE: Axial and longitudinal images of the LEFT breast were performed with a high resolution ultrasound transducer. COMPARISON: Comparison is made with prior mammogram dated July 16, 2018. FINDINGS: LEFT Breast: The mammographic abnormality corresponds to a 6 mm x 7 mm x 4 mm hypoechoic fine nodule at the 9:00 position of the breast at 1 cm from the nipple. This most likely represents a small fibroadenoma. A biopsy is recommended for further evaluation. US/Breast Limited Unilateral IMPRESSION: The mammographic abnormality corresponds to a well-defined subcentimeter hypoechoic nodule as described. This most likely represents a fibroadenoma although a biopsy is recommended for further evaluation. ASSESSMENT CATEGORY: BIRADS Category 4: Suspicious - Biopsy Should Be Considered. A letter regarding these results will be sent to the patient by the facility within 30 days. Electronically Signed: Tavon Bermudez, at 15:04 EDT , Service support ,
--- NOTE | 2018-08-05 15:06 | PCM.PSN.6M ---
PSN 6 Minute Walk Test - 6 Minute Walk Test 6 Minute Walk Test: 6 Minute Walk Test PSN:6-Minute Walk Test Start: 08/05/18 11:15 Freq: Status: Active Protocol: RESP.6MINW Document 08/05/18 11:16 AUDREY (Rec: 08/05/18 11:20 AUDREY [id number]) 6 Minute Walk Test Date Performed 08/05/18 Time Performed 11:00 Height 5 ft Weight: 77.111 kg Weight in Pounds 170.[address]: Branden Bowers Assistive device used: None Pre-test Oxygen Delivery Method Room Air Pulse Ox (%) 95 Pulse Rate (60-100 beats/min) 68 Dyspnea Lula Scale (0-10) 0 Exertion Lula Scale (6-20) 6 1st minute Oxygen Delivery Method Room Air Pulse Ox (%) 95 Pulse Rate (60-100 beats/min) 78 2nd minute Oxygen Delivery Method Room Air Pulse Ox (%) 95 Pulse Rate (60-100 beats/min) 83 3rd minute Oxygen Delivery Method Room Air Pulse Ox (%) 94 Pulse Rate (60-100 beats/min) 89 4th minute Oxygen Delivery Method Room Air Pulse Ox (%) 95 Pulse Rate (60-100 beats/min) 89 5th minute Oxygen Delivery Method Room Air Pulse Ox (%) 95 Pulse Rate (60-100 beats/min) 89 6th minute Oxygen Delivery Method Room Air Pulse Ox (%) 95 Pulse Rate (60-100 beats/min) 89 Dyspnea Lula Scale (0-10) 0.5 Exertion Lula Scale (6-20) 11 Post-test Oxygen Delivery Method Room Air Pulse Ox (%) 96 Pulse Rate (60-100 beats/min) 72 Full Laps Walked 18 Partial Lap, Number of Tiles Walked 0 Total Distance Walked (ft) 1062 - Interpretation Interpretation: The patient was able to ambulate 1062 feet over the course of 6 minutes on room air with no assistive devices or breaks. No significant desaturation or tachycardia was noted. These findings are consistent with deconditioning. - Recommendations Recommendations: No supplemental oxygen is indicated at this time.
== END ==
PROVIDERS: Family Provider Family Medicine; PCP Family Medicine; Referring Provider Nurse Practitioner Acute Care; Visit Provider Nurse Practitioner Acute Care
DX: J44.9 Chronic obstructive pulmonary disease, unspecified (principal); N63.20 Unspecified lump in the left breast, unspecified quadrant; R92.8 Other abnormal and inconclusive findings on diagnostic imaging of breast
CPT/HCPCS: 76642; 94618

== ENCOUNTER → 2018-08-07 12:17 | Outpatient (CLI) | payer MEDICARE, SELFPAY ==
[2018-02-23 09:28] VITALS: BMI 34.9
[2018-07-17 09:33] VITALS: BMI 34.2
--- NOTE | 2018-08-07 14:14 | PFTCOMP ---
COMPLETE PULMONARY FUNCTION TEST INTERPRETATION Brief HPI: Patient is a 77 year old female, currently under the care of myself, who presents to [facility] for complete pulmonary function tests secondary to diagnosis of COPD. Respiratory therapist reports good effort and reproducible results. Interpretation: Forced expiration spirometry shows no mild large airways obstructive ventilatory defect with an FEV1 of 89% predicted. There is no significant bronchodilator response by strict ATS criteria. Spirograms are of good quality and plateau slowly, indicating slowly emptying areas of the lungs. The respiratory flow volume loop shows decreased expiratory flow rates at all lung volumes consistent with airway obstruction. Lung volumes by body plethysmography show a normal total lung capacity at 4.25 L, 108% predicted. All other lung volumes are within normal limits. Diffusion capacity by carbon monoxide is normal at 73% predicted. The airway resistance is elevated. Compared to previous pulmonary function tests from 07/31/2017, there is been a significant improvement in DLCO by 27% and improved air trapping.. Impression: Irreversible mild large airways obstructive ventilatory defect with significant improvement in DLCO compared to previous.
== END ==
PROVIDERS: Family Provider Family Medicine; PCP Family Medicine; Referring Provider Nurse Practitioner Acute Care; Visit Provider Nurse Practitioner Acute Care
DX: J44.9 Chronic obstructive pulmonary disease, unspecified (principal)
CPT/HCPCS: 94060; 94726; 94729

== ENCOUNTER → 2018-08-12 16:00 | Outpatient (CLI) | payer MEDICARE, SELFPAY ==
[2018-07-17 09:33] VITALS: BMI 34.2
--- NOTE | 2018-08-12 15:25 | BRBX_PTH ---
PATIENT: LOUIS BOWERS LOC: [facility] U#:[id number] AGE/SX: 84/F ROOM: RE08/12/[address]: Dr. Haider Schmitt MD : [id number] BED: DIS: SPEC #: [id number] RECD: 08/12/18 15:59 STATUS: RUTH AMY #: [id number] REED: 08/12/18 15:[address]: Haider Schmitt DEPT: SURGICAL PATHOLOGY RECD BY: Chano Chambers ENTERED: 08/13/18 08:19 SP TYPE: BREAST BX OTHR DR: Dr. Rupert Osullivan MD Tissues: Left breast, NOS Procedures: Surgery Specimen Level IV HEADER OPERATION: Ultrasound-guided needle core biopsy, left breast PRE-OP DIAGNOSIS: Abnormal ultrasound left breast TISSUE SUBMITTED: Left breast tissue ISCHEMIC TIME: 1 minute FIXATION TIME: 28 hours MICROSCOPIC DIAGNOSIS Left breast tissue, ultrasound-guided needle core biopsy: Hyalinized fibroadenoma. Negative for atypia or malignancy. MYRANDA:julia 08/14/18 COMMENT Correlation with clinical, radiologic findings and appropriate follow up are necessary. MICROSCOPIC DESCRIPTION Slides are reviewed. GROSS DESCRIPTION Received in fixative is one container labeled with the patient's name and designated left breast tissue. The specimen consists of multiple irregular fragments of ibanez-yellow to reddish-pink soft tissue that in aggregate measure 1.5 x 0.8 x 0.4 cm. The specimen is totally submitted in one cassette. / CE:julia 08/13/18 TC:1 CPT: 93673
== END ==
PROVIDERS: Family Provider Family Medicine; PCP Family Medicine; Referring Provider Surgery; Visit Provider Surgery
DX: R92.8 Other abnormal and inconclusive findings on diagnostic imaging of breast (principal)
CPT/HCPCS: 88305

== ENCOUNTER → 2019-01-14 10:08 | Outpatient (CLI) | payer MEDICARE, SELFPAY ==
[2019-01-14 09:25] VITALS: BMI 35.5
[2019-01-14 12:57] LABS: AST(SGOT) 21 U/L (15-37); Alanine Aminotransfer ALT/SGPT 40 U/L (13-56); Albumin, Serum 3.7 g/dL (3.2-5.0); Alkaline Phosphatase 41 U/L (45-117); Bilirubin, Direct 0.07 mg/dL (0.00-0.30); Cholesterol 124 mg/dL (200); Globulin 3.2 g/dL (2.2-4.2); High Density Lipoprotein 38 mg/dL; Protein, Total 6.9 g/dL (6.4-8.2); Triglycerides 154 mg/dL; Very Low Density Lipoprotein 31 mg/dL (5-40)
== END ==
PROVIDERS: Family Provider Family Medicine; PCP Family Medicine; Visit Provider Internal Medicine Cardiovascular Disease
DX: E78.00 Pure hypercholesterolemia, unspecified (principal)
CPT/HCPCS: 36415; 80061; 80076

== ENCOUNTER → 2019-01-15 07:56 | Outpatient (CLI) | payer MEDICARE, SELFPAY ==
[2018-12-31 14:58] VITALS: BMI 35.3
[2019-01-14 09:25] VITALS: BMI 35.5
--- NOTE | 2019-01-15 07:58 | ECHOD_ITS ---
Reason For Study: VALVE REPL Procedure This was a 2D Doppler, Color Flow transthoracic echocardiogram. Exam performed in department. Left Ventricle Normal size and thickness. The estimated ejection fraction is 65 %. Stage 2 diastolic dysfunction. No regional wall motion abnormalities noted. Right Ventricle Normal size and thickness. Normal systolic function. Atria The left atrium is mildly enlarged. Normal right atrium. Normal atrial septum. Mitral Valve Mild diffuse mitral valve thickening. Severe mitral annular calcification extending into the posterior leaflet. Trivial mitral valve insufficiency. Tricuspid Valve Normal tricuspid valve. Mild (1+) tricuspid valve insufficiency. Right ventricular systolic pressure estimated to be 31 mmHg. Aortic Valve Peak aortic valve gradient 14 mmHg. Mean aortic valve gradient 9 mmHg. Stable appearing bioprosthetic aortic valve apparatus. Pulmonic Valve Normal pulmonic valve. Trivial pulmonic valve insufficiency. Great Vessels Normal aortic root. Normal arch. Normal inferior vena cava. Inferior vena cava collapse with sniff. Pericardium/Pleural No pericardial effusion. MMode/2D Measurements & Calculations LVIDd: 4.7 cm IVSd: 1.1 cm LVOT diam: 2.0 cm LVIDs: 3.2 cm LVPWd: 1.0 cm LVOT area: 3.3 cm2 RVDd: 3.1 cm FS: 32.1 % Ao root diam: 3.3 cm LAV(MOD-bp): 66.3 ml LA A4 area: 21.7 cm2 LAV(MOD-bp) Indexed: 37.1 ml/m2 LAV(MOD-sp2): 55.2 ml LAV(MOD-sp4): 70.4 ml LA dimension(2D): 4.6 cm RA A4 area: 13.7 cm2 Time Measurements MV dec time: 0.20 sec Doppler Measurements & Calculations MV E max shelton: 104.6 cm/sec Lat Peak E' Shelton: 7.9 cm/sec Med Peak E' Shelton: 4.9 cm/sec MV A max shelton: 85.0 cm/sec E/E' lat: 13.3 E/E' med: 21.3 MV E/A: 1.2 MV V2 max: 108.0 cm/sec Ao V2 max: 183.0 cm/sec LV V1 max: 87.2 cm/sec MV max P.7 mmHg Ao max P.4 mmHg LV V1 max P.0 mmHg MV V2 mean: 58.7 cm/sec Ao V2 mean: 136.7 cm/sec LV V1 mean P.8 mmHg MV mean P.7 mmHg Ao mean P.0 mmHg LV V1 mean: 64.6 cm/sec MV V2 VTI: 36.4 cm Ao V2 VTI: 42.0 cm LV V1 VTI: 20.5 cm MVA(VTI): 1.9 cm2 JOSEPH(I,D): 1.6 cm2 JOSEPH(V,D): 1.6 cm2 SV(LVOT): 67.7 ml PA V2 max: 127.1 cm/sec PI end-d shelton: 80.0 cm/sec TR max shelton: 241.8 cm/sec MV P1/2t-pr_phl: 163.4 msec TR max P.4 mmHg Interpretation Summary The estimated ejection fraction is 65 %. Stage 2 diastolic dysfunction. Trivial mitral valve insufficiency. Mild (1+) tricuspid valve insufficiency. Right ventricular systolic pressure estimated to be 31 mmHg. Stable appearing bioprosthetic aortic valve apparatus. (TAVR) Peak aortic valve gradient 14 mmHg. Mean aortic valve gradient 9 mmHg. Compared to echo report dated 12/12/2017, no appreciable changes noted. Ordering Physician: Noe Rodriguez Referring Physician: NAVEEN LOW Performed By: Zoila Rouse, EAN, RVT
== END ==
PROVIDERS: Family Provider Family Medicine; PCP Family Medicine; Referring Provider Internal Medicine Cardiovascular Disease; Visit Provider Internal Medicine Cardiovascular Disease
DX: I25.2 Old myocardial infarction (principal)
CPT/HCPCS: 93306

== ENCOUNTER → 2019-01-18 10:22 | Outpatient (CLI) | payer MEDICARE, SELFPAY ==
[2018-12-31 14:58] VITALS: BMI 35.3
[2019-01-14 09:25] VITALS: BMI 35.5
--- NOTE | 2019-01-18 10:23 | STEWCON_ITS ---
Reason For Study: S/P CABG Stress Results Protocol: Dobutamine with definity Maximum Predicted HR: 141 bpm Target HR: 120 bpm % Maximum Predicted HR: 87 % DurationHeart Rate Stage (mm:ss) (bpm) BP Dose Comment BASELINE 74 158/61 2.5 CC DEFINITY STAGE 1 3:54 86 131/7110.000.5CC DEFINITY STAGE 2 3:33 122 158/7020.001 CC DEFINITY RECOVERY 94 134/66 1 CC DEFINITY Stress Duration: 7:27 mm:ss Maximum Stress HR: 122 bpm Baseline Echocardiogram Findings The estimated ejection fraction is 65 %. Stress Echo Wall motion Data Resting WM Intermediate WM Stress WM Resting Wall Motion Wall Motion Stress No regional wall motion No regional wall motion abnormalities noted. abnormalities noted. EKG Data The baseline ECG displays normal sinus rhythm. The patient was titrated from 10 mcg to a maximum of 20 mcg of dobutamine during the stress. The maximum heart rate attained was 136 beats per minute. This was 96% of maximum predicted heart rate. During dobutamine infusion, there were no ST or T wave changes noted to suggest ischemia. No clinical angina was noted. Interpretation Summary The estimated ejection fraction is 65 %. Normal, adequate, dobutamine echocardiogram. Negative for ischemia by EKG and echocardiographic criteria. No anginal symptoms noted. Rare PVCs noted. Appropriate blood pressure response to dobutamine. Final LVEF is 75%. Test terminated due to the attainment of target heart rate. Decreased sensitivity due to poor echo windows requiring Definity agent. No complications. The study was technically difficult. Contrast injection was performed. Ordering Physician: Noe Rodriguez Referring Physician: Noe Rodriguez Performed By: Zoila Rouse, SABRINACS, RVT
== END ==
PROVIDERS: Family Provider Family Medicine; PCP Family Medicine; Referring Provider Internal Medicine Cardiovascular Disease; Visit Provider Internal Medicine Cardiovascular Disease
DX: Z95.1 Presence of aortocoronary bypass graft (principal); Z95.5 Presence of coronary angioplasty implant and graft; Z95.2 Presence of prosthetic heart valve
CPT/HCPCS: 93017; 93350; J7040; Q9957; A4216; C8928

== ENCOUNTER → 2019-02-09 08:54 | Outpatient (CLI) | payer MEDICARE, SELFPAY ==
[2018-12-31 14:58] VITALS: BMI 35.3
[2019-01-14 09:25] VITALS: BMI 35.5
--- NOTE | 2019-02-09 08:57 | US_ITS ---
STUDY: ULTRASOUND BREAST - LEFT REASON FOR EXAM: Female, 78 years old. Six-month follow-up examination following a left breast nodule biopsy. TECHNIQUE: Axial and longitudinal images of the LEFT breast were performed with a high resolution ultrasound transducer. COMPARISON: Comparison is made with prior mammogram done earlier in the day as well as prior ultrasound the left breast dated August 05, 2018. FINDINGS: LEFT Breast: There is a 3 mm x 4 mm x 4 mm hypoechoic solid nodule at the 9:00 position of the breast that was sinus from the nipple. This has decreased in size as compared to prior study most likely secondary to prior biopsy. US/Breast Limited Unilateral IMPRESSION: Status post biopsy of a nodule at the 9:00 position of the breast as described. The nodule has decreased in size. ASSESSMENT CATEGORY: BIRADS Category 2: Benign. A letter regarding these results will be sent to the patient by the facility within 30 days. Electronically Signed: Tavon Bermudez, at 14:55 EST , Service support ,
--- NOTE | 2019-02-09 08:58 | BI_ITS ---
MAMMOGRAPHY - UNILATERAL DIAGNOSTIC: LEFT BREAST REASON FOR EXAM: Female, 78 years old. Six-month follow-up for left ultrasound-guided breast biopsy. PERTINENT HISTORY: Sister with breast cancer. Aunts with breast cancer. TECHNIQUE: Digital unilateral breast sobeida (3D mammographic acquisition) in the CC and MLO projections. 2-D mediolateral oblique (MLO) and craniocaudad (CC) views of both breasts were obtained. CAD: Full Field Digital Mammography with Computer Added Detection was performed. COMPARISON: Comparison is made with prior mammogram dated July 16, 2018. FINDINGS: Breast Composition: There are scattered areas of fibroglandular density. A tissue clip marker from prior ultrasound-guided biopsy is seen in the inferior medial aspect of the left areola. The previously seen nodular density at that site has decreased in size. No other significant abnormalities are identified. BI/DIAG MAMM W/CAD, UNILAT IMPRESSION: Six-month follow-up of a ultrasound-guided biopsy of the small nodular density in the inferior medial portion of the left retroareolar region. The nodular density as decreased in size.. One year follow-up mammogram recommended. (A) ASSESSMENT CATEGORY: BIRADS Category 2: Benign. A letter regarding these results will be sent to the patient by the facility within 30 days. Approximately 10% of breast cancers are not detected by mammography. A normal mammogram should not delay biopsy of a clinically suspicious abnormality. Electronically Signed: Tavon Bermudez, at 10:43 EST , Service support ,
== END ==
PROVIDERS: Family Provider Family Medicine; PCP Family Medicine; Referring Provider Surgery; Visit Provider Surgery
DX: R92.8 Other abnormal and inconclusive findings on diagnostic imaging of breast (principal); Z98.890 Other specified postprocedural states
CPT/HCPCS: 76642; 77061; 77065; G0279

== ENCOUNTER → 2019-06-14 09:40 | Outpatient (CLI) | payer MEDICARE, SELFPAY ==
[2019-02-24 10:15] VITALS: BMI 35.2
[2019-06-14 13:20] LABS: Thyroid Stim Hormone (TSH) 1.72 uIU/mL (0.358-3.74)
== END ==
PROVIDERS: PCP Family Medicine; Referring Provider Nurse Practitioner Adult Health; Visit Provider Nurse Practitioner Adult Health
DX: E03.9 Hypothyroidism, unspecified (principal)
CPT/HCPCS: 36415; 84443

== ENCOUNTER → 2020-02-11 09:41 | Outpatient (CLI) | payer MEDICARE, SELFPAY ==
[2019-08-24 05:57] VITALS: BMI 34.2
[2019-12-15 13:52] VITALS: BMI 34.2
--- NOTE | 2020-02-11 09:41 | BI_ITS ---
MAMMOGRAPHY - BILATERAL SCREENING REASON FOR EXAM: Female, 79 years old. Routine annual screening examination. PERTINENT HISTORY: Sister with breast cancer. Aunt with breast cancer. Remote right excisional breast biopsy. TECHNIQUE: Digital bilateral breast jennifer (3D mammographic acquisition) in the CC and MLO projections. 2-D mediolateral oblique (MLO) and craniocaudad (CC) views of both breasts were obtained. CAD: Full Field Digital Mammography with Computer Added Detection was performed. COMPARISON: Comparison is made with prior study dated 07/16/2018 and 05/08/2016. FINDINGS: Breast Composition: There are scattered areas of fibroglandular density. There are no dominant masses or suspicious calcifications. Stable asymmetry of breast tissue were more breast tissue is seen in the upper-outer quadrant of the left breast as compared to the right side. Scattered benign-appearing bilateral calcifications. The previously seen nodular density in the inferior medial retroareolar region of the left breast has decreased in size. A tissue clip marker is seen within. No other significant abnormalities are identified. There has been no significant change since the prior study. BI/SCREEN MAMM (CAD) W/JENNIFER BILAT IMPRESSION: Stable bilateral screening mammogram. Yearly follow-up mammogram recommended. (A) ASSESSMENT CATEGORY: BIRADS Category 2: Benign. A letter regarding these results will be sent to the patient by the facility within 30 days. Approximately 10% of breast cancers are not detected by mammography. A normal mammogram should not delay biopsy of a clinically suspicious abnormality. [id number] Electronically Signed: Tavon Bermudez, at 10:40 EST , Service support ,
== END ==
PROVIDERS: PCP Family Medicine; Referring Provider Surgery; Visit Provider Surgery
DX: Z12.31 Encounter for screening mammogram for malignant neoplasm of breast (principal); Z80.3 Family history of malignant neoplasm of breast
CPT/HCPCS: 77063; 77067

== ENCOUNTER → 2020-03-15 09:14 | Outpatient (CLI) | payer MEDICARE, SELFPAY ==
[2020-02-29 10:43] VITALS: BMI 33.4
--- NOTE | 2020-03-15 09:24 | ECHOD_ITS ---
Reason For Study: AVR Procedure This was a 2D Doppler, Color Flow transthoracic echocardiogram. The exam was of adequate technical quality. Exam performed in department. Left Ventricle Normal LV size. Left ventricular systolic function is normal. The estimated ejection fraction is 65 %. Post operative septal motion. Diastolic function is indeterminate. No regional wall motion abnormalities noted. Right Ventricle Normal RV size. Normal systolic function. Atria The left atrium is moderately enlarged. Normal right atrium. No doppler evidence for ASD. Mitral Valve There is moderate mitral annular calcification. Extension of the mitral annular calcification onto the base of the posterior mitral valve leaflet. Mild (1+) mitral valve insufficiency. Tricuspid Valve Normal tricuspid valve. Trivial tricuspid valve insufficiency. Right ventricular systolic pressure estimated to be 23 mmHg. Aortic Valve Mild aortic stenosis. Stable appearing bioprosthetic aortic valve apparatus. Pulmonic Valve The pulmonic valve is not well visualized. Trivial pulmonic valve insufficiency identified. Great Vessels Normal sized aortic root. Pericardium/Pleural No pericardial effusion. MMode/2D Measurements & Calculations LVIDd: 3.9 cm IVSd: 1.2 cm LVOT diam: 2.0 cm LVIDs: 2.2 cm LVPWd: 1.2 cm LVOT area: 3.2 cm2 RVDd: 2.6 cm FS: 45.2 % Ao root diam: 3.3 cm LAV(MOD-bp): 40.0 ml LA A4 area: 14.8 cm2 LAV(MOD-bp) Indexed: 22.7 ml/m2 LAV(MOD-sp2): 41.5 ml LAV(MOD-sp4): 38.8 ml LA dimension(2D): 4.0 cm RA A4 area: 11.7 cm2 Doppler Measurements & Calculations MV E max shelton: 102.0 cm/sec Lat Peak E' Shelton: 8.9 cm/sec Med Peak E' Shelton: 5.9 cm/sec MV A max shelton: 83.1 cm/sec E/E' lat: 11.4 E/E' med: 17.3 MV E/A: 1.2 Ao V2 max: 233.8 cm/sec LV V1 max: 125.7 cm/sec SV(LVOT): 86.9 ml Ao max P.9 mmHg LV V1 max P.3 mmHg Ao V2 mean: 155.3 cm/sec LV V1 mean P.3 mmHg Ao mean P.9 mmHg LV V1 mean: 85.9 cm/sec Ao V2 VTI: 50.6 cm LV V1 VTI: 27.1 cm JOSEPH(I,D): 1.7 cm2 JOSEPH(V,D): 1.7 cm2 PA V2 max: 120.2 cm/sec TR max shelton: 222.7 cm/sec TR max P.8 mmHg Interpretation Summary Left ventricular systolic function is normal. The estimated ejection fraction is 65 %. Post operative septal motion. The left atrium is moderately enlarged. There is moderate mitral annular calcification. Extension of the mitral annular calcification onto the base of the posterior mitral valve leaflet. Mild (1+) mitral valve insufficiency. Trivial tricuspid valve insufficiency. Stable appearing bioprosthetic aortic valve apparatus. Mild aortic stenosis. Trivial pulmonic valve insufficiency identified. Right ventricular systolic pressure estimated to be 23 mmHg. Diastolic function is indeterminate. Ordering Physician: Charbel Worthington Referring Physician: Rupert Osullivan MD Performed By: Roselia Hung RDCS
[2020-03-15 10:45] LABS: AST(SGOT) 28 U/L (15-37); Alanine Aminotransfer ALT/SGPT 60 U/L (13-56); Albumin, Serum 3.6 g/dL (3.2-5.0); Alkaline Phosphatase 44 U/L (45-117); Bilirubin, Direct 0.15 mg/dL (0.00-0.30); Cholesterol 115 mg/dL (200); Globulin 3.5 g/dL (2.2-4.2); High Density Lipoprotein 38 mg/dL; Protein, Total 7.1 g/dL (6.4-8.2); Triglycerides 171 mg/dL; Very Low Density Lipoprotein 34 mg/dL (5-40)
== END ==
PROVIDERS: PCP Family Medicine; Referring Provider Internal Medicine Cardiovascular Disease; Visit Provider Internal Medicine Cardiovascular Disease
DX: E78.5 Hyperlipidemia, unspecified (principal); Z95.3 Presence of xenogenic heart valve; E78.00 Pure hypercholesterolemia, unspecified
CPT/HCPCS: 36415; 80061; 80076; 93306

== ENCOUNTER 2020-04-28 14:06 | Outpatient (RCR) | payer MEDICARE, SELFPAY ==
[2020-02-29 10:43] VITALS: BMI 33.4
== END 2020-04-28 23:59 ==
LOC: IMMUN 14:06
PROVIDERS: PCP Family Medicine; Visit Provider Family Medicine
DX: Z23 Encounter for immunization (principal)
CPT/HCPCS: 0011A; 0012A; 91301

== ENCOUNTER → 2020-06-20 10:38 | Outpatient (CLI) | payer MEDICARE, SELFPAY ==
[2020-02-29 10:43] VITALS: BMI 33.4
[2020-06-20 12:51] LABS: Absolute Lymphocyte Count 2.14 X10^3/uL (0.83-4.51); Absolute Neutrophil Count 5.2 X10^3/uL (2.0-7.7); Basophil# 0.07 X10^3/uL; Basophil% 0.8 % (0-1); Eosinophil# 0.27 X10^3/uL; Eosinophils% 3.1 % (0-5); Hematocrit 42.5 % (37-47); Hemoglobin 13.8 g/dL (12.0-15.0); Lymphocyte # 2.14 X10^3/ul (4.0); Lymphocyte % 24.9 % (19-41); Mean Corp Hgb Conc 32.5 g/dL (32-36); Mean Corpuscular Volume 98.6 fL (81-99); Mean Platelet Vol. 13.9 fl (6.2-12.0); Monocyte# 0.89 X10^3/uL; Monocyte% 10.4 % (0-10); NRBC Flagged by Analyzer 0 % (0-5); Neutrophil % 60.6 % (47-70); Platelet Count 162 K/mm3 (150-450); RBC Distribution Width CV 12.8 % (11.6-14.6); RBC Distribution Width SD 45.9 fl (35.1-43.9); Red Blood Count 4.31 M/mm3 (4.2-5.4); White Blood Count 8.6 K/mm3 (4.4-11.0)
[2020-06-20 13:08] LABS: Vitamin D,25 Hydroxy 23.4 ng/mL
[2020-06-20 13:48] LABS: ALB/GLOB Ratio 1.1 RATIO (0.9-2.4); AST(SGOT) 25 U/L (15-37); Alanine Aminotransfer ALT/SGPT 50 U/L (13-56); Albumin, Serum 3.8 g/dL (3.2-5.0); Alkaline Phosphatase 45 U/L (45-117); Anion Gap 7 (5-15); BUN 23 mg/dL (7-18); BUN/Creat Ratio 26.9 RATIO (10-20); Calcium,Total 9.7 mg/dL (8.5-10.1); Chloride 103 mmol/L (98-107); Creatinine, Serum 0.85 mg/dL (0.55-1.02); EST Glomerular Filtration Rate 68 mL/min (>60); Est Glom Filt Rate - Afr Amer 82 mL/min (>60); Globulin 3.6 g/dL (2.2-4.2); Glucose 96 mg/dL (74-106); Potassium 3.5 mmol/L (3.5-5.1); Protein, Total 7.4 g/dL (6.4-8.2); Sodium Level 140 mmol/L (136-145); Thyroid Stim Hormone (TSH) 2.43 uIU/mL (0.358-3.74)
== END ==
PROVIDERS: PCP Family Medicine; Referring Provider Family Medicine; Visit Provider Registered Nurse
DX: E03.9 Hypothyroidism, unspecified (principal); I50.9 Heart failure, unspecified
CPT/HCPCS: 36415; 80053; 82306; 84443; 85025

== ENCOUNTER → 2020-10-04 11:21 | Outpatient (CLI) | payer MEDICARE, SELFPAY ==
[2020-10-04 10:32] VITALS: BMI 34.6
[2020-10-04 12:54] LABS: AST(SGOT) 32 U/L (15-37); Alanine Aminotransfer ALT/SGPT 70 U/L (13-56); Albumin, Serum 3.7 g/dL (3.2-5.0); Alkaline Phosphatase 39 U/L (45-117); Bilirubin, Direct 0.15 mg/dL (0.00-0.30); Cholesterol 119 mg/dL (200); Globulin 3.4 g/dL (2.2-4.2); High Density Lipoprotein 36 mg/dL; Protein, Total 7.1 g/dL (6.4-8.2); Triglycerides 142 mg/dL; Very Low Density Lipoprotein 28 mg/dL (5-40)
== END ==
PROVIDERS: PCP Family Medicine; Visit Provider Internal Medicine Cardiovascular Disease
DX: E78.00 Pure hypercholesterolemia, unspecified (principal)
CPT/HCPCS: 36415; 80061; 80076

== ENCOUNTER → 2020-12-08 12:01 | Outpatient (CLI) | payer MEDICARE, SELFPAY ==
--- NOTE | 2020-12-08 12:04 | RAD_ITS ---
STUDY: X-RAY CHEST REASON FOR EXAM: Female, 80 years old. COPD TECHNIQUE: PA and lateral views of the chest. COMPARISON: 04/04/2016 FINDINGS: Status post coronary artery bypass grafting. The lungs are clear and expanded. There is no demonstrated pleural abnormality. Normal size heart. Normal mediastinum and memo. Normal visualized pulmonary arteries. Normal visualized aortic arch and descending thoracic aorta. Normal visualized thoracic spine. Normal visualized ribs, clavicles, and shoulders. There is no demonstrated abnormality of the visualized soft tissue structures of the upper abdomen. RAD/Chest PA and Lateral IMPRESSION: No active disease. Electronically Signed: Paramjit Frederick MD at 8:01 EDT Tel , Service support ,
== END ==
PROVIDERS: PCP Family Medicine; Referring Provider Family Medicine; Visit Provider Family Medicine
DX: J44.1 Chronic obstructive pulmonary disease with (acute) exacerbation (principal)
CPT/HCPCS: 71046; 87635; U0005; U0003

== ENCOUNTER → 2020-12-27 10:08 | Outpatient (CLI) | payer MEDICARE, SELFPAY ==
[2020-12-27 12:16] LABS: Absolute Lymphocyte Count 1.54 X10^3/uL (0.83-4.51); Absolute Neutrophil Count 5.5 X10^3/uL (2.0-7.7); Basophil# 0.08 X10^3/uL; Eosinophil# 0.41 X10^3/uL; Eosinophils% 4.9 % (0-5); Hematocrit 40.3 % (37-47); Hemoglobin 12.9 g/dL (12.0-15.0); Lymphocyte # 1.54 X10^3/ul (0.83-4.51); Lymphocyte % 18.5 % (19-41); Mean Corpuscular Hgb 31.9 pg (27.0-32.0); Mean Corpuscular Volume 99.5 fL (81-99); Mean Platelet Vol. 13.8 fl (6.2-12.0); Monocyte# 0.82 X10^3/uL; Monocyte% 9.9 % (0-10); NRBC Flagged by Analyzer 0 % (0-5); Neutrophil # 5.46 X10^3/uL (2.7-7.7); Neutrophil % 65.6 % (47-70); Platelet Count 155 K/mm3 (150-450); RBC Distribution Width SD 47.1 fl (35.1-43.9); Red Blood Count 4.05 M/mm3 (4.2-5.4); White Blood Count 8.3 K/mm3 (4.4-11.0)
[2020-12-27 12:29] LABS: Vitamin B12 577 pg/mL (211-911); Vitamin D,25 Hydroxy 33.6 ng/mL
[2020-12-27 13:06] LABS: ALB/GLOB Ratio 0.9 RATIO (0.9-2.4); AST(SGOT) 30 U/L (15-37); Alanine Aminotransfer ALT/SGPT 58 U/L (13-56); Albumin, Serum 3.3 g/dL (3.2-5.0); Alkaline Phosphatase 31 U/L (45-117); Anion Gap 6 (5-15); BUN 17 mg/dL (7-18); BUN/Creat Ratio 24.3 RATIO (10-20); Calcium,Total 9.1 mg/dL (8.5-10.1); Chloride 108 mmol/L (98-107); Cholesterol 105 mg/dL (200); EST Glomerular Filtration Rate 85 mL/min (>60); Est Glom Filt Rate - Afr Amer 103 mL/min (>60); Globulin 3.5 g/dL (2.2-4.2); Glucose 115 mg/dL (74-106); High Density Lipoprotein 31 mg/dL; Potassium 3.7 mmol/L (3.5-5.1); Protein, Total 6.8 g/dL (6.4-8.2); Sodium Level 142 mmol/L (136-145); Thyroid Stim Hormone (TSH) 0.92 uIU/mL (0.358-3.74); Triglycerides 139 mg/dL; Very Low Density Lipoprotein 28 mg/dL (5-40)
== END ==
PROVIDERS: PCP Family Medicine; Referring Provider Family Medicine; Visit Provider Family Medicine
DX: R41.89 Other symptoms and signs involving cognitive functions and awareness (principal); I50.9 Heart failure, unspecified; E55.9 Vitamin D deficiency, unspecified; J44.9 Chronic obstructive pulmonary disease, unspecified
CPT/HCPCS: 36415; 80053; 80061; 82306; 82607; 82746; 84443; 85025

== ENCOUNTER → 2021-02-23 13:18 | Outpatient (CLI) | payer MEDICARE, SELFPAY ==
--- NOTE | 2021-02-23 13:19 | BI_ITS ---
MAMMOGRAPHY - BILATERAL SCREENING REASON FOR EXAM: Female, 80 years old. Routine annual screening examination. PERTINENT HISTORY: Sister with breast cancer. Aunts with breast cancer. Prior right excisional breast biopsy and left ultrasound guided breast biopsy. TECHNIQUE: Digital bilateral breast jennifer (3D mammographic acquisition) in the CC and MLO projections. 2-D mediolateral oblique (MLO) and craniocaudad (CC) views of both breasts were obtained. CAD: Full Field Digital Mammography with Computer Added Detection was performed. COMPARISON: Comparison is made with prior examination dated 02/11/2020 and 02/09/2019. FINDINGS: Breast Composition: There are scattered areas of fibroglandular density. There are no dominant masses or suspicious calcifications. Stable asymmetry of breast tissue where more breast tissue is seen in the upper outer quadrant of the left breast as compared to the right side. Stable benign-appearing bilateral scattered calcifications. A tissue clip marker is seen in the retroareolar region of the left breast. No other significant abnormalities are identified. There has been no significant change since the prior study. BI/SCRN MAMM (CAD)W/JENNIFER BILAT IMPRESSION: Stable bilateral screening mammogram. Yearly follow-up mammogram recommended. (A) ASSESSMENT CATEGORY: BIRADS Category 2: Benign. A letter regarding these results will be sent to the patient by the facility within 30 days. Approximately 10% of breast cancers are not detected by mammography. A normal mammogram should not delay biopsy of a clinically suspicious abnormality. [id number] Electronically Signed: Tavon Bermudez MD at 14:02 EST , Service support ,
== END ==
PROVIDERS: PCP Family Medicine; Referring Provider Family Medicine; Visit Provider Family Medicine
DX: Z12.31 Encounter for screening mammogram for malignant neoplasm of breast (principal); Z80.3 Family history of malignant neoplasm of breast
CPT/HCPCS: 77063; 77067

== ENCOUNTER → 2021-04-04 09:53 | Outpatient (CLI) | payer MEDICARE, SELFPAY ==
--- NOTE | 2021-04-04 09:58 | US_ITS ---
INDICATION: CYST R HAND JOINT EXAMINATION: Right hand soft tissues. HISTORY: Palpable lump in the right hand. TECHNIQUE: Routine and color duplex imaging with spectral analysis. FINDINGS: There is a focal area of anechoic echogenicity visualized in the soft tissues of the palm of the right hand of the location of palpable lump, findings suggestive of a fluid collection measuring 0.7 x 0.6 x 0.1 cm, no evidence of masses is seen, no evidence of cystic lesions visualized. No significant soft tissue swelling visualized in the overlying subcutaneous soft tissues. No evidence of extension of this collection into the joint space. US/Ext Non Vasc Limited/Soft Tiss IMPRESSION: Localized fluid collection measuring 0.7 x 0.6 x 0.1 cm. No evidence of masses is seen. Electronically Signed: Pepe Shore MD at 11:05 EST Tel , Service support ,
== END ==
PROVIDERS: PCP Family Medicine; Referring Provider Nurse Practitioner Family; Visit Provider Nurse Practitioner Family
DX: M25.841 Other specified joint disorders, right hand (principal)
CPT/HCPCS: 76882

== ENCOUNTER 2021-06-11 10:03 | Outpatient (CLI) | payer MEDICARE, SELFPAY ==
[2021-06-11 11:05] LABS: AST(SGOT) 22 U/L (15-37); Alanine Aminotransfer ALT/SGPT 38 U/L (13-56); Albumin, Serum 3.5 g/dL (3.2-5.0); Alkaline Phosphatase 39 U/L (45-117); Bilirubin, Direct 0.12 mg/dL (0.00-0.30); Cholesterol 127 mg/dL (200); Globulin 3.6 g/dL (2.2-4.2); High Density Lipoprotein 49 mg/dL; Protein, Total 7.1 g/dL (6.4-8.2); Triglycerides 92 mg/dL; Very Low Density Lipoprotein 18 mg/dL (5-40)
== END 2021-06-11 23:59 | disposition home or self-care (01) ==
LOC: LAB 10:04
PROVIDERS: PCP Family Medicine; Referring Provider Internal Medicine Cardiovascular Disease; Visit Provider Internal Medicine Cardiovascular Disease
DX: E78.00 Pure hypercholesterolemia, unspecified (principal); E78.5 Hyperlipidemia, unspecified
CPT/HCPCS: 36415; 80061; 80076

== ENCOUNTER 2021-06-22 15:42 | Outpatient (CLI) | payer MEDICARE, SELFPAY | END 2021-06-22 23:59 | disposition home or self-care (01) | LOC: LABSPEC 15:44 | PROVIDERS: PCP Family Medicine; Referring Provider Family Medicine; Visit Provider Family Medicine | DX: R35.0 Frequency of micturition (principal) | CPT/HCPCS: 87077; 87086; 87088 ==

== ENCOUNTER 2021-07-10 13:34 | Outpatient (CLI) | payer MEDICARE, SELFPAY ==
--- NOTE | 2021-07-10 13:40 | ECHOD_ITS ---
Reason For Study: ASHD, VALVE REPLACEMENT (TAVR), Procedure This was a 2D Doppler, Color Flow transthoracic echocardiogram. The study was technically difficult. Exam performed in department. Left Ventricle Normal LV size. Left ventricular systolic function is normal. The estimated ejection fraction is 60 %. Post operative septal motion. Diastolic function is indeterminate. Right Ventricle Normal RV size. Normal systolic function. Atria The left atrium is moderately enlarged. Normal right atrium. No doppler evidence for ASD. Mitral Valve There is moderate mitral annular calcification. Extension of the mitral annular calcification on the base of the posterior mitral valve leaflet. Mild (1+) mitral valve insufficiency. Tricuspid Valve Normal tricuspid valve. Mild (1+) tricuspid valve insufficiency. Right ventricular systolic pressure estimated to be 29 mmHg. Aortic Valve Stable appearing bioprosthetic aortic valve apparatus. Pulmonic Valve The pulmonic valve is not well visualized. Mild (1+) pulmonic valve insufficiency. Great Vessels Normal sized aortic root. Pericardium/Pleural No pericardial effusion. MMode/2D Measurements & Calculations LVIDd: 5.2 cm IVSd: 1.0 cm Ao root diam: 3.2 cm LVIDs: 3.7 cm LVPWd: 1.0 cm RVDd: 2.7 cm FS: 28.5 % LAV(MOD-bp): 59.0 ml LA A4 area: 20.0 cm2 LA dimension(2D): 4.4 cm LAV(MOD-bp) Indexed: 33.7 ml/m2 LAV(MOD-sp2): 57.3 ml LAV(MOD-sp4): 61.6 ml RA A4 area: 12.4 cm2 Time Measurements MV dec time: 0.20 sec Doppler Measurements & Calculations MV E max shelton: 101.9 cm/sec Lat Peak E' Shelton: 9.6 cm/sec Med Peak E' Shelton: 5.9 cm/sec MV A max shelton: 86.4 cm/sec E/E' lat: 10.6 E/E' med: 17.3 MV E/A: 1.2 Ao V2 max: 197.4 cm/sec LV V1 max: 94.0 cm/sec PA V2 max: 115.0 cm/sec Ao max P.6 mmHg LV V1 max P.5 mmHg Ao V2 mean: 133.5 cm/sec LV V1 mean P.9 mmHg Ao mean P.1 mmHg LV V1 mean: 64.5 cm/sec Ao V2 VTI: 38.6 cm LV V1 VTI: 21.2 cm PI dec slope: 178.4 cm/sec2 TR max shelton: 255.1 cm/sec TR max P.0 mmHg ECHO/Echo Complete Interpretation Summary The study was technically difficult. Left ventricular systolic function is normal. The estimated ejection fraction is 60 %. Post operative septal motion. The left atrium is moderately enlarged. There is moderate mitral annular calcification. Extension of the mitral annular calcification on the base of the posterior mitr al valve leaflet. Mild (1+) mitral valve insufficiency. Mild (1+) tricuspid valve insufficiency. Stable appearing bioprosthetic aortic valve apparatus. Mild (1+) pulmonic valve insufficiency. Right ventricular systolic pressure estimated to be 29 mmHg. Diastolic function is indeterminate. Ordering Physician: Cheryl Hurd Referring Physician: Rupert Osullivan Performed By: Princess Guzman, RDCS, RVT
== END 2021-07-10 23:59 | disposition home or self-care (01) ==
LOC: CVS 13:34
PROVIDERS: PCP Family Medicine; Referring Provider Physician Assistant Medical; Visit Provider Physician Assistant Medical
DX: I25.10 Atherosclerotic heart disease of native coronary artery without angina pectoris (principal)
CPT/HCPCS: 93306

== ENCOUNTER → 2021-10-25 | Outpatient (CLI) | payer MEDICARE, SELFPAY | END | disposition home or self-care (01) | LOC: SL 08:42 | PROVIDERS: PCP Family Medicine; Visit Provider Nurse Practitioner Acute Care | DX: Z46.89 Encounter for fitting and adjustment of other specified devices (principal) ==

== ENCOUNTER → 2021-12-13 | Outpatient (CLI) | payer MEDICARE, SELFPAY ==
[2021-12-13 12:29] LABS: Absolute Lymphocyte Count 1.78 X10^3/uL (0.83-4.51); Absolute Neutrophil Count 4.6 X10^3/uL (2.0-7.7); Basophil# 0.06 X10^3/uL; Basophil% 0.8 % (0-1); Eosinophil# 0.27 X10^3/uL; Eosinophils% 3.6 % (0-5); Hematocrit 40.1 % (37-47); Hemoglobin 13.5 g/dL (12.0-15.0); Lymphocyte # 1.78 X10^3/ul (0.83-4.51); Lymphocyte % 23.6 % (19-41); Mean Corp Hgb Conc 33.7 g/dL (32-36); Mean Corpuscular Hgb 33.6 pg (27.0-32.0); Mean Corpuscular Volume 99.8 fL (81-99); Mean Platelet Vol. 13.3 fl (6.2-12.0); Monocyte# 0.86 X10^3/uL; Monocyte% 11.4 % (0-10); NRBC Flagged by Analyzer 0 % (0-5); Neutrophil # 4.55 X10^3/uL (2.7-7.7); Neutrophil % 60.5 % (47-70); Platelet Count 181 K/mm3 (150-450); RBC Distribution Width CV 13.2 % (11.6-14.6); RBC Distribution Width SD 47.9 fl (35.1-43.9); Red Blood Count 4.02 M/mm3 (4.2-5.4); White Blood Count 7.5 K/mm3 (4.4-11.0)
[2021-12-13 12:53] LABS: BNP,B-Type NATRIURETIC PEPTIDE 98.1 pg/mL (0-100)
[2021-12-13 13:03] LABS: AST(SGOT) 19 U/L (15-37); Alanine Aminotransfer ALT/SGPT 37 U/L (13-56); Albumin, Serum 3.7 g/dL (3.2-5.0); Alkaline Phosphatase 36 U/L (45-117); Bilirubin, Direct 0.15 mg/dL (0.00-0.30); Globulin 3.3 g/dL (2.2-4.2)
[2021-12-13 13:08] LABS: Anion Gap 5 (5-15); BUN 18 mg/dL (7-18); BUN/Creat Ratio 20.8 RATIO (10-20); Calcium,Total 10.1 mg/dL (8.5-10.1); Chloride 106 mmol/L (98-107); Creatinine, Serum 0.87 mg/dL (0.55-1.02); EST Glomerular Filtration Rate 67 mL/min (>60); Est Glom Filt Rate - Afr Amer 81 mL/min (>60); Glucose 114 mg/dL (74-106); Potassium 3.8 mmol/L (3.5-5.1); Sodium Level 144 mmol/L (136-145); Thyroid Stim Hormone (TSH) 1.18 uIU/mL (0.358-3.74)
[2021-12-13 13:08] LABS: Cholesterol 114 mg/dL (200); High Density Lipoprotein 42 mg/dL; Triglycerides 120 mg/dL; Very Low Density Lipoprotein 24 mg/dL (5-40)
== END | disposition home or self-care (01) ==
PROVIDERS: Internal Medicine Cardiovascular Disease; PCP Family Medicine; Visit Provider Physician Assistant Medical
DX: R06.09 Other forms of dyspnea (principal); E78.5 Hyperlipidemia, unspecified; Z95.3 Presence of xenogenic heart valve; I10 Essential (primary) hypertension; Z95.1 Presence of aortocoronary bypass graft; Z95.5 Presence of coronary angioplasty implant and graft
CPT/HCPCS: 36415; 80048; 80061; 80076; 83880; 84443; 85025

== ENCOUNTER → 2021-12-14 | Outpatient (CLI) | payer MEDICARE, SELFPAY | END | disposition home or self-care (01) | LOC: PSN 08:51 | PROVIDERS: PCP Family Medicine; Referring Provider Physician Assistant Medical; Visit Provider Physician Assistant Medical | DX: I48.91 Unspecified atrial fibrillation (principal) | CPT/HCPCS: 93225; 93226 ==

== ENCOUNTER → 2021-12-25 | Outpatient (CLI) | payer MEDICARE, SELFPAY ==
--- NOTE | 2021-12-25 11:46 | STRESSREP_ITS ---
Stress Test Report Date: 12-25-2021 Procedure: Pharmacologic stress nuclear imaging study Indications: Shortness of breath/dyspnea on exertion; CAD; CABG; CHF; status post TAVR; ALMA; status post COVID-19 Consent: Per the patient Procedure: The patient underwent pharmacologic (Regadenoson 0.4mg ) evaluation with a peak heart rate of 93 beats per minute (67%predicted maximal heart rate) and a peak blood pressure of 128/64 mmHg. The baseline ECG demonstrated atrial fibrillation with a controlled ventricular response; poor R wave progression. The peak pharmacologic ECG demonstrated no obvious ECG changes. There were no cardiac dysrhythmias pretest, during pharmacologic infusion, or recovery. There was no complaint of chest discomfort during pharmacologic infusion or recovery. The examination was discontinued secondary to completion of protocol. Impression: 1. Pharmacologic (Regadenoson) evaluation 2. Peak pharmacologic ECG with no obvious ECG changes. 3. There were no cardiac dysrhythmias pretest, during pharmacologic infusion, or recovery. 4. Nuclear images pending Myocardial perfusion imaging study: Technique: The patient was injected with 11.1 millicuries of technetium 99m Cardiolite and subsequently rest SPECT Cardiolite nuclear imaging was obtained in the horizontal long, vertical long, and short axis views. The patient underwent pharmacologic (Regadenoson) evaluation with a peak heart rate of 93 beats per minute (67% percent predicted maximal heart rate) and a peak blood pressure of 128/64 mmHg. The patient was injected with 33.5 millicuries of technetium 99m Cardiolite and subsequently stress SPECT Cardiolite nuclear imaging was obtained in the horizontal long, vertical long, and short axis views. A gated Cardiolite study at peak stress was obtained. Interpretation: Rest and stress SPECT Cardiolite nuclear imaging status post realignment, normalization, and attenuation correction demonstrate the appearance of relative uniform tracer uptake and myocardial perfusion appearing within normal limits. There is end systolic thickening and brightening. The gated Cardiolite study demonstrates myocardial thickening and inward wall motion. The reported LVEF is 73%. Impression: 1. Rest and stress SPECT Cardiolite nuclear imaging demonstrate relative uniform tracer uptake and myocardial perfusion appearing within normal limits. 2. The gated Cardiolite study reports an LVEF of 73%. This note was generated with [employer] software. It may contain incorrect words, spelling, and punctuation that were not noted in checking the note before signing.
== END | disposition home or self-care (01) ==
LOC: CVS 06:19
PROVIDERS: PCP Family Medicine; Referring Provider Physician Assistant Medical; Visit Provider Physician Assistant Medical
DX: I25.10 Atherosclerotic heart disease of native coronary artery without angina pectoris (principal); R06.09 Other forms of dyspnea; Z95.3 Presence of xenogenic heart valve; I10 Essential (primary) hypertension; Z95.1 Presence of aortocoronary bypass graft; Z95.5 Presence of coronary angioplasty implant and graft
CPT/HCPCS: 78452; 93017; A9500; A4216; J2785

== ENCOUNTER → 2022-01-15 | Outpatient (CLI) | payer MEDICARE, SELFPAY ==
[2022-01-15 11:32] LABS: Anion Gap 4 (5-15); BUN 22 mg/dL (7-18); BUN/Creat Ratio 26.8 RATIO (10-20); Calcium,Total 9.5 mg/dL (8.5-10.1); Chloride 104 mmol/L (98-107); Creatinine, Serum 0.82 mg/dL (0.55-1.02); EST Glomerular Filtration Rate 71 mL/min (>60); Est Glom Filt Rate - Afr Amer 86 mL/min (>60); Glucose 117 mg/dL (74-106); Potassium 3.6 mmol/L (3.5-5.1); Sodium Level 141 mmol/L (136-145)
== END | disposition home or self-care (01) ==
LOC: LAB 09:16
PROVIDERS: PCP Family Medicine; Referring Provider Physician Assistant Medical; Visit Provider Physician Assistant Medical
DX: I48.91 Unspecified atrial fibrillation (principal); R09.89 Other specified symptoms and signs involving the circulatory and respiratory systems
CPT/HCPCS: 80048

== ENCOUNTER 2022-01-22 10:35 | Day surgery (SDC) | payer MEDICARE, SELFPAY ==
--- NOTE | 2022-01-18 15:36 | PCM.HP.BLA ---
History and Physical Date of Admission: 01/22/22 [facility] [address] [place], [place] [id number] OFFICE VISIT Date of Service:? 01/15/22 MR#: [id number] Acct: [id number] Name:LOUIS HOPPER Rep #: [id number] : 1940 Provider: ?ANGELLA Hurd Age/Sex:? 81/F Location: [facility] Status: Signed HPI HPI History of Present Illness Surgical H&P: Yes Details: Louis Martinez is an 81-year-old white female that presents here today for a cardiovascular follow up.? She has a history of underlying CAD, CABG times 3-1986, redo CABG with an BRUCE to the LAD (preserved from her original CABG, SVG to the OM, and SVG to the PDA-2005, status post TAVR at [id number]-[id number],? hyperlipidemia, hypertension.? At her last OV she was noted to be in Atrial fib, she was started on eliquis. She does have ALMA and does use her CPAP. It is noted that she did have COVID earlier this year and her symptoms started after that. Pt notes that she si still fatigued and SOB with exertion.? She does not think that th is is any better than before.? She does not have any chest pain. She does sometimes have lightheadedness, these do not last long. She does not have any near-syncope or syncope.? She does sometimes have edema in the evening.? She does not have any symptoms of claudication. Intake Vital Signs ? 12/13/2209:08 01/16/2208:31 01/16/2208:31 Height 5 ft 5 ft 5 ft Weight: ? 176 lb ? BMI ? 34.3 ? BP ? 117/77 ? Blood Pressure Location ? Lt brachial ? Position ? Sitting ? Respiration ? 18 ? Pulse ? 81 ? Pulse Source ? Monitor ? Pulse Oximetry (%) ? 96 ? Intake Visit Reasons:?4 wk fu Manager Commercial Required: No Is patient in pain?: No Allergies adhesive Adverse Reaction (Verified 01/15/22 08:31) Rashnickel Adverse Reaction (Verified 01/15/22 08:31) Rashwool Adverse Reaction (Verified 01/15/22 08:31) Rash Medications levothyroxine 88 mcg tablet 88 mcg PO DAILY 11/23/13 [History Confirmed 01/15/22] multivitamin-ferrous fumarate-folic acid 18 mg-400 mcg tablet 1 ea PO DAILY 02/07/17 [History Confirmed 01/15/22] calcium carbonate 500 mg-vitamin D3 5 mcg (200 unit) tablet (Os-Christian 500 + D3) 1 tab PO BID 11/28/17 [History Confirmed 01/15/22] mucus clearing device #1 ea 08/13/18 [History Confirmed 12/27/21] magnesium oxide 400 mg (241.3 mg magnesium) tablet (MagOx) 400 mg PO DAILY 12/31/18 [History Confirmed 01/15/22] albuterol sulfate 90 mcg/actuation aerosol inhaler (Ventolin HFA) 2 puff inhalation Q4H PRN shortness of breath or wheezing #18 grams 02/29/20 [Rx Confirmed 01/15/22] Disability Parking Placard #1 ea 05/30/20 [Rx Confirmed 12/27/21] nitroglycerin 0.4 mg sublingual tablet 0.4 mg sublingual Q5M PRN Chest Pain #25 tabs 01/30/21 [Rx Confirmed 01/15/22] losartan 50 mg tablet 50 mg PO DAILY #90 tabs 02/01/21 [Rx Confirmed 01/15/22] pantoprazole 40 mg tablet,delayed release 40 mg PO DAILY #90 tabs 04/25/21 [Rx Confirmed 01/15/22] amoxicillin 500 mg tablet 2,000 mg PO .COMPLEX #4 tabs 06/12/21 [Rx Confirmed 01/15/22] furosemide 20 mg tablet 20 mg PO DAILY PRN Swelling 06/12/21 [History Confirmed 01/15/22] potassium chloride 10 mEq tablet,extended release 10 meq PO DAILY PRN When you take Lasix for swelling 06/12/21 [History Confirmed 01/15/22] isosorbide mononitrate 20 mg tablet See Rx Instructions .Route .COMPLEX #180 tabs 07/13/21 [Rx Confirmed 01/15/22] tiotropium bromide 2.5 mcg/actuation mist for inhalation (Spiriva Respimat) 2 puff inhalation QDAY #1 ea 08/20/21 [Rx Confirmed 01/15/22] rosuvastatin 20 mg tablet See Rx Instructions .Route .COMPLEX #90 tabs 09/19/21 [Rx Confirmed 01/15/22] apixaban 5 mg tablet (Eliquis) 5 mg PO BID #60 tabs 12/13/21 [Rx Confirmed 01/15/22] PFSH Medical History?(Updated 01/15/22 @ 21:30 by Cheryl PERALES, PA) Afib Atherosclerosis of coronary artery bypass graft without angina pectoris Atherosclerosis of coronary artery of [place] heart without angina pectoris Carotid artery stenosis CHF (congestive heart failure) Chronic anemia COPD with acute exacerbation Degeneration of intervertebral disc of lumbosacral region Depression Dyspnea Essential hypertension GERD (gastroesophageal reflux disease) GI bleed (~02/16/16) History of GI bleed (02/2016) History of non-ST elevation myocardial infarction (NSTEMI) (06/24/05) HLD (hyperlipidemia) Hypothyroidism Left bundle branch block Lumbar facet arthropathy Lumbosacral spondylosis Non-rheumatic aortic stenosis Obesity Old myocardial infarction ALMA (obstructive sleep apnea) Persistent atrial fibrillation Scarlet fever Severe aortic stenosis Stage 2 moderate COPD by GOLD classification Thyroid nodule Surgical History? H/O aortic valve replacement (01/31/16) History of aortic valve replacement with bioprosthetic valve (~01/31/16) History of cardiac catheterization (~2015) History of cataract extraction (~2008) History of colonoscopy (~2007) History of colonoscopy (~2015) History of electrophysiologic study (02/02/16) History of hysterectomy History of inguinal herniorrhaphy History of lumpectomy of left breast History of partial thyroidectomy (~2008) History of squamous cell carcinoma excision Hx of cholecystectomy Previous back surgery S/P CABG x 2 (10/22/05) S/P CABG x 3 (~1986) Status post Mohs surgery for basal cell carcinoma (~2007) Stented coronary artery (~06/24/05) Family History? Mother CAD (coronary artery disease) Hypertension Alzheimer diseaseDaughter CAD (coronary artery disease) Myocardial infarctionSister Breast cancer Myocardial infarctionBrother Myocardial infarctionFather CVA (cerebral vascular accident) Heart disease Hypertension Aneurysm and dissection of heart Social History? Smoking Status:? Former smoker quit date: 04/07/02 pack-years: 35 second hand exposure:? No alcohol intake:? never substance use type:? does not use caffeine:? Yes Type: coffee Number of servings: 2 ROS Const Const: Positive for fatigue and weakness; Negative for headache(s), frequent falls, excessive sweating, weight gain or weight loss Eyes Eyes: Negative for blind spots, loss of peripheral vision, transient loss of vision, blurry vision, change in vision or double vision ENT ENT: Negative for headache(s), dizziness, tinnitus, Nosebleed/epistaxis or balance problems Cardio Chest Pain: No Palpitations: No Edema: Bilateral Muscle aches with walking: None Resp Respiratory: Positive for SOB with activity; Negative for SOB at rest, SOB orthopnea\SOB lying down or Cough GI GI: Negative nausea, vomiting, heartburn, bloating, vomiting blood/hematemesis, bright, red blood in stools or black,tarry stools : Negative for hematuria Musc Musc: Negative for muscle aches/ myalgia, muscle weakness, joint pain or balance problems Skin Skin: Negative rash or wounds Neuro Neuro: Positive for lightheadedness and weakness; Negative for dizziness, near syncope, syncope, orthostatic symptoms, frequent falls, headache(s), confusion, memory loss, restless legs, blurry vision or double vision Dustin Hematologic/Lymphatic: Negative for easy bleeding or easy bruising Endo Endo: Positive for fatigue; Negative for cold intolerance, heat intolerance or excessive sweating Psych Psych: Negative for anxiety or depression Allergy Allergy/Immunology: Negative for rash Cardiology Exam Const Appearance: cooperative, healthy appearing, comfortable, no acute distress and well developed Orientation: alert, awake and oriented x3 Head Head: normal to inspection Ears: hearing grossly normal bilaterally Nose: external nose normal Face and Sinus: face symmetric Mouth: oral mucosae normal, lip normal and moist mucous membranes Eyes General: appearance normal, both eyes and all related structures Eyelids: eyelids normal Conjunctivae: conjunctivae normal Pupils: PERRL EOM: EOM intact bilaterally Neck Neck: normal visual inspection and trachea midline; Negative no JVD Carotids: Negative bruit Chest Chest inspection: normal inspection of the chest Auscultation: Bilateral: Clear to Auscultation Cardio Palpation: normal PMI Rate: regular rate Rhythm: irregularly irregular Heart sounds: S1 normal and S2 normal; Negative rub, gallop or murmur GI GI: soft, no hepatosplenomegaly and bowel sounds present Neuro General: patient alert, patient awake, patient oriented x3 and CN's II-XI intact bilaterally Extremities Pulses: Normal: Right Posterior Tibial Pulse, Left Posterior Tibial Pulse, Right Radial Pulse and Left Radial Pulse Lower Extremity Edema: None: Bilateral Psych Psychological: normal affect Supplemental Info Supplemental Information Echocardiogram: 01/15/2019 Interpretation Summary The estimated ejection fraction is 65 %.Interpretation Summary The estimated ejection fraction is 65 %. Stage 2 diastolic dysfunction. Trivial mitral valve insufficiency. Mild (1+) tricuspid valve insufficiency. Right ventricular systolic pressure estimated to be 36 mmHg. Bioprosthetic aortic valve. Compared to echo report dated 11/21/2015, LV function has remained the same. Aortic valve has been replaced with normal functioning bioprosthetic AVR. RVSP has decreased from 42 to 36 mm Hg. Transthoracic echocardiogram: 03/15/2020 Interpretation Summary Left ventricular systolic function is normal. The estimated ejection fraction is 65 %. Post operative septal motion. The left atrium is moderately enlarged. There is moderate mitral annular calcification. Extension of the mitral annular calcification onto the base of the posterior mitral valve leaflet. Mild (1+) mitral valve insufficiency. Trivial tricuspid valve insufficiency. Stable appearing bioprosthetic aortic valve apparatus. Mild aortic stenosis. Trivial pulmonic valve insufficiency identified. Right ventricular systolic pressure estimated to be 23 mmHg. Diastolic function is indeterminate. Echocardiogram 07/2021: Left ventricular systolic function is normal. The estimated ejection fraction is 60 %. Post operative septal motion. The left atrium is moderately enlarged. There is moderate mitral annular calcification. Extension of the mitral annular calcification on the base of the posterior mitral valve leaflet. Mild (1+) mitral valve insufficiency. Mild (1+) tricuspid valve insufficiency. Stable appearing bioprosthetic aortic valve apparatus. Mild (1+) pulmonic valve insufficiency. Right ventricular systolic pressure estimated to be 29 mmHg. Diastolic function is indeterminate. Dobutamine Stress Echocardiogram: 01/18/2019 Normal, adequate, dobutamine echocardiogram. Negative for ischemia by EKG and echocardiographic criteria. No anginal symptoms noted. Rare PVCs noted. Appropriate blood pressure response to dobutamine. Final LVEF is 75%. Test terminated due to the attainment of target heart rate. Decreased sensitivity due to poor echo windows requiring Definity agent. No complications. The study was technically difficult. Contrast injection was performed. Carotid duplex ultrasound from 06/22/18 showed right ICA with 50-69% stenosis and left ICA with 50-69% stenosis. Labs: ?? ? LDL Cholesterol 48 mg/dL (0-130) ?? ? HDL Cholesterol 42 mg/dL (40-) ?? ? Triglycerides 120 mg/dL (-199) ?? ? VLDL Cholesterol 24 mg/dL (5-40) Diagnostics: ?? ? Electrocardiogram ? Echocardiogram ? Stress Test NM ? Stress Test ? Pulmonary: ?? ? No Data to Display Assessment and Plan Assessment and Plan (1) Atherosclerosis of coronary artery of [place] heart without angina pectoris: ?Status:?Chronic ?Qualifiers: ?Coronary Disease-Associated Artery/Lesion type:?[place] artery? Qualified Code(s):?I25.10 - Atherosclerotic heart disease of [place] coronary artery without angina pectoris ?Comment: redo CABG x 2 SVG-OM2 and SVG-PDA w/ preservation of previously? placed BRUCE-LAD? 10/2005 ?Plan: Recent stress test was negative for ischemia.? Pt will continue with her Losartan, Isosorbide. (2) History of aortic valve replacement with bioprosthetic valve: ?Status:?Chronic ?Comment: TAVR 26mm Evolut R Core Valve per Dr. Verde, Dr. Mota, Dr. Dow @ [facility] 01/31/16 ?Plan: Reviewed recent echo,? Patient will continue with antibiotic prophylaxis per AHA guidelines. (3) HLD (hyperlipidemia): ?Status:?Chronic ?Qualifiers: ?Hyperlipidemia type:?unspecified? Qualified Code(s):?E78.5 - Hyperlipidemia, unspecified ?Plan: Laboratory Tests ? 06/11/21 ? 10:06 Cholesterol ?127 LDL Cholesterol ?60 HDL Cholesterol ?49 Pt will continue with current dose of statin. (4) Essential hypertension: ?Status:?Chronic ?Plan: Blood pressure is well controlled on current medications, we do not recommend any changes at this time. (5) Persistent atrial fibrillation: ?Status:?Acute ?Plan: Pts afib appears persistent.? Will proceed with a DCCV,? pt is agreeable with this.? If pt does not maintain SR will consider starting an antiarrthymic. ? ? ? Orders: Orders Cardioversion Today I48.91 - Unspecified atrial fibrillation ? Basic Metabolic Profile (BMP) Today I48.91 - Unspecified atrial fibrillation ?Patient Instructions: Your procedure is schedule for 01/22/2022 at noon.? You will arrive at 1030. Nothing to eat or drink after midnight With a small sip of water take your morning medications, except your lasix. You will need a corporate driver.? Get your labs done this week. Plan Details Additional Comments: Thank you for allowing me to participate in the care of your patient.? Please don't hesitate to call if any issues arise. This note was generated using a voice recognition system and there may be incorrect words, spelling or punctuation that were not noted when reviewing the office note prior to saving. Follow Up: ? ? 3 Months (mmm) ? ? 01/15/22 (ekg one week from 01/22/2022- post cardioversion) Coding Level of Care Code Off vis,est,level 4 Diagnoses Atherosclerosis of coronary artery of [place] heart without angina pectoris? I25.10 ? ? ? Coronary Disease-Associated Artery/Lesion type: [place] artery History of aortic valve replacement with bioprosthetic valve? Z95.3 HLD (hyperlipidemia)? E78.5 ? ? ? Hyperlipidemia type: unspecified Essential hypertension? I10 Persistent atrial fibrillation? I48.19 Coding Level of Care Code Off vis,est,level 4 Diagnoses Atherosclerosis of coronary artery of [place] heart without angina pectoris? I25.10 ? ? ? Coronary Disease-Associated Artery/Lesion type: [place] artery History of aortic valve replacement with bioprosthetic valve? Z95.3 HLD (hyperlipidemia)? E78.5 ? ? ? Hyperlipidemia type: unspecified Essential hypertension? I10 Persistent atrial fibrillation? I48.19 01/16/22 1516 <Electronically signed by Cheryl PERALES> Date Cheryl Jovel Signature: Date (if applicable) CC:? Dr. Rupert Osullivan MD ~ Assessment & Plan Addt'l Comments I have re-examined the patient. There are no clinical changes since date of exam. This note was generated using a voice recognition system and there may be incorrect words, spelling or punctuation that were not noted when reviewing the office note prior to saving.
[2022-01-21 07:09] VITALS: BMI 34.3
--- NOTE | 2022-01-22 12:22 | CARDIOVERS_ITS ---
Cardioversion Cardioversion: Date: 01-22-2022 Procedure: Synchronized Biphasic DC Cardioversion Indications: Atrial fibrillation Consent: Per the Patient Anesthesia: per Dr. Ruggiero of pulmonology and critical care medicine with propofol 40 mg IVP total Procedure: Synchronized Biphasic DC Cardioversion: 200 J x 1: Result: sinus rhythm Complications: no apparent complications This note was generated with [employer] software. It may contain incorrect words, spelling, and punctuation that were not noted in checking the note before signing.
--- NOTE | 2022-01-22 12:25 | PCM.OP.PRO ---
Procedure Report Date of Procedure: 01/22/22 CONSCIOUS SEDATION REPORT DATE OF SERVICE: January 22, 2022 BRIEF HISTORY OF PRESENT ILLNESS: The patient is an 81-year-old female who presented to [facility] for an elective outpatient cardioversion due to underlying atrial fibrillation. The patient has never previously undergone a cardioversion. She is currently anticoagulated on Eliquis. She denies any prior anesthetic complications. She does have an apparent history of COPD along with obstructive sleep apnea, for which she reports compliance with the use of nocturnal CPAP therapy. Her last echocardiogram demonstrated an ejection fraction of approximately 60%. PHYSICAL EXAMINATION: VITAL SIGNS: Reviewed and were acceptable. GENERAL: The patient is a female, in no apparent distress, speaking in full sentences. HEENT: Normocephalic, atraumatic. Mucous membranes are moist and pink. Good mouth opening noted. Trachea is midline. CHEST: S1, S2 irregularly irregular. LUNGS: Clear to auscultation bilaterally without appreciable wheezes, rales or rhonchi. ABDOMEN: Soft, nontender, nondistended. Positive bowel sounds. EXTREMITIES: There is no clubbing, cyanosis or edema. ASA Class: II DESCRIPTION OF PROCEDURE: After confirmation of informed consent, the patient's anesthesia plan was reviewed in detail. Propofol was chosen. Risks and benefits were reviewed and the patient agreed to proceed. At 1205, the patient was given 40 mg of propofol. The patient achieved an appropriate level of sedation and was given a 200 joule synchronized cardioversion by Dr. Worthington at the bedside. This was successful in achieving normal sinus rhythm. The patient was monitored until 1217, at which time she reached her baseline mental status and function. The patient tolerated the procedure well. COMPLICATIONS: None ESTIMATED BLOOD LOSS: None RECOMMENDATIONS: Okay to recover in usual fashion. Procedures Pulmonary [id number]: [id number] Con Sedation
== END 2022-01-22 13:10 | disposition home or self-care (01) ==
PROVIDERS: PCP Family Medicine; Visit Provider Internal Medicine Cardiovascular Disease
DX: I48.19 Other persistent atrial fibrillation (principal); I10 Essential (primary) hypertension; E78.5 Hyperlipidemia, unspecified; I25.10 Atherosclerotic heart disease of native coronary artery without angina pectoris; R60.9 Edema, unspecified; G47.33 Obstructive sleep apnea (adult) (pediatric); Z87.891 Personal history of nicotine dependence; Z95.1 Presence of aortocoronary bypass graft; Z86.16 Personal history of COVID-19; Z95.3 Presence of xenogenic heart valve
CPT/HCPCS: 92960; 93005; J7030

== ENCOUNTER → 2022-02-18 | Outpatient (CLI) | payer MEDICARE, SELFPAY ==
[2022-02-18 18:44] LABS: Thyroid Stim Hormone (TSH) 3.73 uIU/mL (0.358-3.74)
== END | disposition home or self-care (01) ==
LOC: MFPLAB 15:47
PROVIDERS: PCP Family Medicine; Visit Provider Family Medicine
DX: L65.9 Nonscarring hair loss, unspecified (principal)
CPT/HCPCS: 36415; 84443

== ENCOUNTER → 2022-02-21 | Outpatient (CLI) | payer MEDICARE, SELFPAY | END | disposition home or self-care (01) | PROVIDERS: PCP Family Medicine; Visit Provider Family Medicine | DX: R30.0 Dysuria (principal) | CPT/HCPCS: 87086; 87088 ==

== ENCOUNTER → 2022-03-04 | Outpatient (CLI) | payer MEDICARE, SELFPAY ==
--- NOTE | 2022-03-04 15:45 | RAD_ITS ---
STUDY: X-RAY CHEST REASON FOR EXAM: Female, 81 years old. Cardioversion TECHNIQUE: Frontal and lateral views of the chest. COMPARISON: December 08, 2020 FINDINGS: Mediastinal clips and stents and endovascular prosthetic valve unchanged. The lungs are clear and expanded. Small left effusion or pleural reaction Normal size heart. Normal mediastinum and memo. Normal visualized pulmonary arteries. Normal visualized aortic arch and descending thoracic aorta. Normal visualized thoracic spine. Normal visualized ribs, clavicles, and shoulders. There is no demonstrated abnormality of the visualized soft tissue structures of the upper abdomen. RAD/Chest PA and Lateral IMPRESSION: Small stable pleural reaction on the left. Mediastinal hardware. Sternotomy. No acute disease. Electronically Signed: Deniz Chávez MD at 16:08 EST ,
[2022-03-04 16:25] LABS: Absolute Neutrophil Count 6.6 X10^3/uL (2.0-7.7); Basophil# 0.08 X10^3/uL; Basophil% 0.8 % (0-1); Eosinophil# 0.11 X10^3/uL; Eosinophils% 1.1 % (0-5); Hematocrit 43.7 % (37-47); Hemoglobin 13.8 g/dL (12.0-15.0); Lymphocyte % 23.4 % (19-41); Mean Corp Hgb Conc 31.6 g/dL (32-36); Mean Corpuscular Hgb 30.9 pg (27.0-32.0); Mean Corpuscular Volume 97.8 fL (81-99); Mean Platelet Vol. 13.3 fl (6.2-12.0); Monocyte# 1.01 X10^3/uL; Monocyte% 9.9 % (0-10); NRBC Flagged by Analyzer 0 % (0-5); Neutrophil % 64.3 % (47-70); Platelet Count 173 K/mm3 (150-450); RBC Distribution Width CV 13.4 % (11.6-14.6); RBC Distribution Width SD 48.3 fl (35.1-43.9); Red Blood Count 4.47 M/mm3 (4.2-5.4); White Blood Count 10.3 K/mm3 (4.4-11.0)
[2022-03-04 16:48] LABS: Anion Gap 5 (5-15); BUN 21 mg/dL (7-18); BUN/Creat Ratio 23.2 RATIO (10-20); Calcium,Total 9.4 mg/dL (8.5-10.1); Chloride 105 mmol/L (98-107); Creatinine, Serum 0.91 mg/dL (0.55-1.02); EST Glomerular Filtration Rate 63 mL/min (>60); Est Glom Filt Rate - Afr Amer 76 mL/min (>60); Glucose 130 mg/dL (74-106); Potassium 3.5 mmol/L (3.5-5.1); Sodium Level 142 mmol/L (136-145)
[2022-03-04 16:50] LABS: BNP,B-Type NATRIURETIC PEPTIDE 57.4 pg/mL (0-100)
== END | disposition home or self-care (01) ==
LOC: RAD 15:39
PROVIDERS: PCP Family Medicine; Referring Provider Nurse Practitioner Gerontology; Visit Provider Nurse Practitioner Gerontology
DX: I48.19 Other persistent atrial fibrillation (principal); R53.83 Other fatigue; R06.09 Other forms of dyspnea
CPT/HCPCS: 36415; 71046; 80048; 83880; 85025

== ENCOUNTER 2022-03-19 10:29 | Day surgery (SDC) | payer MEDICARE, SELFPAY ==
--- NOTE | 2022-03-15 15:43 | HP.PCM_ITS ---
History and Physical Date of Admission: 03/19/22 [facility] [address] [place], [place] [address] Name:LOUIS HOPPER : 1940 ?Provider:: ?ROBLES Parker Age/Sex:? 81/F HPI HPI History of Present Illness Surgical H&P: Yes Details: Louis Martinez is an 81-year-old white female who presents here today for a cardiovascular follow up visit.? She has a history of underlying CAD, CABG times 3-1986, redo CABG with an BRUCE to the LAD (preserved from her original CABG, SVG to the OM, and SVG to the PDA-2005, status post TAVR at [id number],? hyperlipidemia, and hypertension. She has a new diagnosis of Atrial fib, she was started on Eliquis. She does have ALMA and does use her CPAP. It is noted that she did have COVID earlier this year and her symptoms started after that. She underwent cardioversion in January of this year, and unfortunately did not stay in sinus rhythm. She was started on Amiodarone after, with plans for repeat cardioversion. From a cardiac standpoint, the patient is doing well. She does have complaints of fatigue, and occasional heaviness in her chest. She does acknowledge chest discomfort at rest when she is tired. She denies any palpitations. She does have SOB with exertion and at rest-she states this is slightly worse. She denies Orthopnea, and PND. She does wear a CPAP nightly. She does not have bleeding issues; no blood in urine, stool or nosebleeds. She denies myalgias, or claudication.? She does not have edema, or sudden weight gain. She does have an occasional lightheadedness. She denies dizziness, syncopal or near syncopal episodes, and headaches. Intake Vital Signs ? 01/22/2211:08 03/04/2214:34 03/04/2214:43 Height 5 ft 5 ft 5 ft Weight: 176 lb ? 177 lb BMI ? ? 34.5 BP ? ? 137/81 H Blood Pressure Location ? ? Lt brachial Position ? ? Sitting Respiration ? ? 24 H Pulse ? ? 77 Pulse Source ? ? Monitor Pulse Oximetry (%) ? ? 98 Oxygen Delivery Method ? ? room air Intake Visit Reasons:?PER VALDEZ MURRAY H&P Vocational Teacher Required: No Accompanied by: None Is patient in pain?: No Allergies adhesive Adverse Reaction (Verified 03/04/22 19:41) Rashnickel Adverse Reaction (Verified 03/04/22 19:41) Rashwool Adverse Reaction (Verified 03/04/22 19:41) Rash Medications levothyroxine 88 mcg tablet 88 mcg PO DAILY 11/23/13 [History Confirmed 03/04/22] multivitamin-ferrous fumarate-folic acid 18 mg-400 mcg tablet 1 ea PO DAILY 02/07/17 [History Confirmed 03/04/22] calcium carbonate 500 mg-vitamin D3 5 mcg (200 unit) tablet (Os-Christian 500 + D3) 1 tab PO BID 11/28/17 [History Confirmed 03/04/22] mucus clearing device #1 ea 08/13/18 [History Confirmed 03/04/22] magnesium oxide 400 mg (241.3 mg magnesium) tablet (MagOx) 400 mg PO DAILY 12/31/18 [History Confirmed 03/04/22] albuterol sulfate 90 mcg/actuation aerosol inhaler (Ventolin HFA) 2 puff inhalation Q4H PRN shortness of breath or wheezing #18 grams 02/29/20 [Rx Confirmed 03/04/22] Disability Parking Placard #1 ea 05/30/20 [Rx Confirmed 03/04/22] nitroglycerin 0.4 mg sublingual tablet 0.4 mg sublingual Q5M PRN Chest Pain #25 tabs 01/30/21 [Rx Confirmed 03/04/22] losartan 50 mg tablet 50 mg PO DAILY #90 tabs 02/01/21 [Rx Confirmed 03/04/22] pantoprazole 40 mg tablet,delayed release 40 mg PO DAILY #90 tabs 04/25/21 [Rx Confirmed 03/04/22] amoxicillin 500 mg tablet 2,000 mg PO .COMPLEX #4 tabs 06/12/21 [Rx Confirmed 03/04/22] furosemide 20 mg tablet 20 mg PO DAILY PRN Swelling 06/12/21 [History Confirmed 03/04/22] potassium chloride 10 mEq tablet,extended release 10 meq PO DAILY PRN When you take Lasix for swelling 06/12/21 [History Confirmed 03/04/22] isosorbide mononitrate 20 mg tablet See Rx Instructions .Route .COMPLEX #180 tabs 07/13/21 [Rx Confirmed 03/04/22] tiotropium bromide 2.5 mcg/actuation mist for inhalation (Spiriva Respimat) 2 puff inhalation QDAY #1 ea 08/20/21 [Rx Confirmed 03/04/22] rosuvastatin 20 mg tablet See Rx Instructions .Route .COMPLEX #90 tabs 09/19/21 [Rx Confirmed 03/04/22] apixaban 5 mg tablet (Eliquis) 5 mg PO BID #60 tabs 12/13/21 [Rx Confirmed 03/04/22] amiodarone 200 mg tablet 200 mg PO DAILY #30 tabs 03/04/22 [Rx Confirmed 03/04/22] Ejection fraction %: 60 to 64 PFSH Medical History?(Reviewed 03/04/22 @ 14:59 by Ivy Parker REAL ESTATE SALESPERSON, REAL ESTATE SALESPERSON-C) Afib Atherosclerosis of coronary artery bypass graft without angina pectoris Atherosclerosis of coronary artery of [place] heart without angina pectoris Carotid artery stenosis CHF (congestive heart failure) Chronic anemia COPD with acute exacerbation Degeneration of intervertebral disc of lumbosacral region Depression Dyspnea Essential hypertension GERD (gastroesophageal reflux disease) GI bleed (~02/16/16) History of GI bleed (02/2016) History of non-ST elevation myocardial infarction (NSTEMI) (06/24/05) HLD (hyperlipidemia) Hypothyroidism Left bundle branch block Lumbar facet arthropathy Lumbosacral spondylosis Non-rheumatic aortic stenosis Obesity Old myocardial infarction ALMA (obstructive sleep apnea) Persistent atrial fibrillation Scarlet fever Severe aortic stenosis Stage 2 moderate COPD by GOLD classification Thyroid nodule Surgical History?(Reviewed 03/04/22 @ 14:59 by Ivy Parker REAL ESTATE SALESPERSON, REAL ESTATE SALESPERSON-C) H/O aortic valve replacement (01/31/16) History of aortic valve replacement with bioprosthetic valve (~01/31/16) History of cardiac catheterization (~2015) History of cataract extraction (~2008) History of colonoscopy (~2007) History of colonoscopy (~2015) History of electrophysiologic study (02/02/16) History of hysterectomy History of inguinal herniorrhaphy History of lumpectomy of left breast History of partial thyroidectomy (~2008) History of squamous cell carcinoma excision Hx of cholecystectomy Previous back surgery S/P CABG x 2 (10/22/05) S/P CABG x 3 (~1986) Status post Mohs surgery for basal cell carcinoma (~2007) Stented coronary artery (~06/24/05) Family History?(Reviewed 03/04/22 @ 14:59 by Ivy Parker REAL ESTATE SALESPERSON, REAL ESTATE SALESPERSON-C) Mother CAD (coronary artery disease) Hypertension Alzheimer diseaseDaughter CAD (coronary artery disease) Myocardial infarctionSister Breast cancer Myocardial infarctionBrother Myocardial infarctionFather CVA (cerebral vascular accident) Heart disease Hypertension Aneurysm and dissection of heart Social History?(Reviewed 03/04/22 @ 14:59 by Ivy Parker REAL ESTATE SALESPERSON, REAL ESTATE SALESPERSON-C) Smoking Status:? Former smoker quit date: 04/07/02 pack-years: 35 second hand exposure:? No alcohol intake:? never substance use type:? does not use caffeine:? Yes Type: coffee Number of servings: 2 ROS Const Const: Positive for fatigue; Negative for weakness, fever(s), headache(s), chills, frequent falls, weight gain or weight loss Eyes Eyes: Negative for blind spots, loss of peripheral vision, transient loss of vision, blurry vision, change in vision, double vision, floaters or tunnel vision ENT ENT: Negative for headache(s), dizziness, Nosebleed/epistaxis, balance problems or neck pain Cardio Chest Pain: Yes (occasional chest heaviness, and discomfort at rest when she is tired.) Palpitations: No Edema: None Muscle aches with walking: None Resp Respiratory: Positive for SOB with activity (slightly worse) and SOB at rest; Negative for SOB orthopnea\SOB lying down GI GI: Negative nausea, vomiting, heartburn, bloating, vomiting blood/hematemesis, bright, red blood in stools or black,tarry stools Musc Musc: Negative for muscle aches/ myalgia, muscle weakness, joint pain or balance problems Neuro Neuro: Positive for lightheadedness (occasional); Negative for dizziness, near syncope, syncope, orthostatic symptoms, frequent falls, headache(s), weakness, blurry vision or double vision Dustin Hematologic/Lymphatic: Negative for easy bleeding or easy bruising Endo Endo: Positive for fatigue Cardiology Exam Const Appearance: cooperative, healthy appearing, comfortable, no acute distress and well developed Nutritional Appearance: obese Orientation: alert, awake and oriented x3 Head Head: normal to inspection Ears: hearing grossly normal bilaterally Nose: external nose normal Face and Sinus: face symmetric Eyes General: appearance normal, both eyes and all related structures Eyelids: eyelids normal Conjunctivae: conjunctivae normal EOM: EOM intact bilaterally Neck Neck: normal visual inspection and trachea midline; Negative no JVD Carotids: Negative bruit Chest Chest inspection: normal inspection of the chest Auscultation: Bilateral: Clear to Auscultation Cardio Palpation: normal PMI Rate: regular rate Rhythm: irregularly irregular Heart sounds: S1 normal and S2 normal; Negative rub, gallop or murmur GI GI: soft, no hepatosplenomegaly, bowel sounds present and obese Neuro General: patient alert, patient awake, patient oriented x3 and CN's II-XI intact bilaterally Extremities Pulses: Normal: Right Posterior Tibial Pulse, Left Posterior Tibial Pulse, Right Radial Pulse and Left Radial Pulse Lower Extremity Edema: None: Left and Trace: Right Psych Psychological: normal affect Supplemental Info Supplemental Information Echocardiogram: 01/15/2019 Interpretation Summary The estimated ejection fraction is 65 %.Interpretation Summary The estimated ejection fraction is 65 %. Stage 2 diastolic dysfunction. Trivial mitral valve insufficiency. Mild (1+) tricuspid valve insufficiency. Right ventricular systolic pressure estimated to be 36 mmHg. Bioprosthetic aortic valve. Compared to echo report dated 11/21/2015, LV function has remained the same. Aortic valve has been replaced with normal functioning bioprosthetic AVR. RVSP has decreased from 42 to 36 mm Hg. Transthoracic echocardiogram: 03/15/2020 Interpretation Summary Left ventricular systolic function is normal. The estimated ejection fraction is 65 %. Post operative septal motion. The left atrium is moderately enlarged. There is moderate mitral annular calcification. Extension of the mitral annular calcification onto the base of the posterior mitral valve leaflet. Mild (1+) mitral valve insufficiency. Trivial tricuspid valve insufficiency. Stable appearing bioprosthetic aortic valve apparatus. Mild aortic stenosis. Trivial pulmonic valve insufficiency identified. Right ventricular systolic pressure estimated to be 23 mmHg. Diastolic function is indeterminate. Echocardiogram 07/2021: Left ventricular systolic function is normal. The estimated ejection fraction is 60 %. Post operative septal motion. The left atrium is moderately enlarged. There is moderate mitral annular calcification. Extension of the mitral annular calcification on the base of the posterior mitral valve leaflet. Mild (1+) mitral valve insufficiency. Mild (1+) tricuspid valve insufficiency. Stable appearing bioprosthetic aortic valve apparatus. Mild (1+) pulmonic valve insufficiency. Right ventricular systolic pressure estimated to be 29 mmHg. Diastolic function is indeterminate. Dobutamine Stress Echocardiogram: 01/18/2019 Normal, adequate, dobutamine echocardiogram. Negative for ischemia by EKG and echocardiographic criteria. No anginal symptoms noted. Rare PVCs noted. Appropriate blood pressure response to dobutamine. Final LVEF is 75%. Test terminated due to the attainment of target heart rate. Decreased sensitivity due to poor echo windows requiring Definity agent. No complications. The study was technically difficult. Contrast injection was performed. Stress Test 12/25/2021: Procedure: Pharmacologic stress nuclear imaging study? Indications: Shortness of breath/dyspnea on exertion; CAD; CABG; CHF; status post TAVR; ALMA; status post COVID-19 Consent: Per the patient Procedure: The patient underwent pharmacologic (Regadenoson 0.4mg ) evaluation with a peak heart rate of 93 beats per minute (67%predicted maximal heart rate) and a peak blood pressure of 128/64 mmHg. The baseline ECG demonstrated atrial fibrillation with a controlled ventricular response; poor R wave progression.? The peak pharmacologic ECG demonstrated no obvious ECG changes. There were no cardiac dysrhythmias pretest, during pharmacologic infusion, or recovery. There was no complaint of chest discomfort during pharmacologic infusion or recovery. The examination was discontinued secondary to completion of protocol. Impression: 1.? Pharmacologic (Regadenoson) evaluation 2.? Peak pharmacologic ECG with no obvious ECG changes. 3.? There were no cardiac dysrhythmias pretest, during pharmacologic infusion, or recovery. 4.? Nuclear images pending Myocardial perfusion imaging study: Technique: The patient was injected with 11.1 millicuries of technetium 99m Cardiolite and subsequently rest SPECT Cardiolite nuclear imaging was obtained in the horizontal long, vertical long, and short axis views. The patient underwent pharmacologic (Regadenoson) evaluation with a peak heart rate of 93 beats per minute (67% percent predicted maximal heart rate) and a peak blood pressure of 128/64 mmHg. The patient was injected with 33.5 millicuries of technetium 99m Cardiolite and subsequently stress SPECT Cardiolite nuclear imaging was obtained in the horizontal long, vertical long, and short axis views.? A gated Cardiolite study at peak stress was obtained. Interpretation: Rest and stress SPECT Cardiolite nuclear imaging status post realignment, normalization, and attenuation correction demonstrate the appearance of relative uniform tracer uptake and myocardial perfusion appearing within normal limits.? There is end systolic thickening and brightening.? The gated Cardiolite study demonstrates myocardial thickening and inward wall motion.? The reported LVEF is 73%. Impression: 1.? Rest and stress SPECT Cardiolite nuclear imaging demonstrate relative u niform tracer uptake and myocardial perfusion appearing within normal limits. 2.? The gated Cardiolite study reports an LVEF of 73%. Carotid duplex ultrasound from 06/22/18?showed right ICA with 50-69% stenosis and left ICA with 50-69% stenosis. Labs: ?? ? No Data to Display Diagnostics: ?? ? Electrocardiogram ? Stress Test NM ? Stress Test ? Pulmonary: ?? ? No Data to Display Assessment and Plan Assessment and Plan (1) Persistent atrial fibrillation: ?Status:?Acute ?Plan: Patient has a history of persistent atrial fibrillation. Her most recent echocardiogram from 07/10/2021 demonstrated an ejection fraction of 60%, and moderately enlarged left atrium. Her EKG from today demonstrates atrial fibrillation, heart rate 84. She does have complaints of fatigue, chest heaviness and discomfort when tired, and dyspnea. She will undergo a cardioversion on 03/19/[address] Wor[address]. Cardioversion instructions given to patient, and she voices understanding. She will continue Eliquis 5mg twice daily, and amiodarone 200mg daily. She will continue to monitor for any concerning symptoms. ? (2) SALAZAR (dyspnea on exertion): ?Status:?Acute ?Plan: Patient has complaints of dyspnea on exertion. Her most recent echocardiogram from 07/10/2021 demonstrated an ejection fraction of 60%, and diastolic function was indeterminate. This may be related to her atrial fibrillation. She will undergo a cardioversion on 03/19/2022. She will also obtain lab work to evaluate for fluid overload. Depending on results, further recommendations will be made. (3) Fatigue: ?Status:?Acute ?Plan: Patient has complaints of fatigue. Again, this may be related to her atrial fibrillation. She will undergo a cardioversion on 03/19/2022. We will also obtain lab work to evaluate for anemia. Depending on results, further recommendations will be made. (4) Atherosclerosis of coronary artery of [place] heart without angina pectoris: ?Status:?Chronic ?Qualifiers: ?Coronary Disease-Associated Artery/Lesion type:?[place] artery? Qualified Code(s):?I25.10 - Atherosclerotic heart disease of [place] coronary artery without angina pectoris ?Comment: redo CABG x 2 SVG-OM2 and SVG-PDA w/ preservation of previously? placed BRUCE- LAD? 10/2005 ?Plan: Patient has a history of coronary artery disease with recent CABG in 2005. Her most recent stress test from 12/25/2021 was negative for ischemia. She will continue with her current medical therapy, along with aggressive risk factor and lifestyle modifications. She will continue to monitor for any concerning symptoms. (5) History of aortic valve replacement with bioprosthetic valve: ?Status:?Chronic ?Comment: TAVR 26mm Evolut R Core Valve per Dr. Verde, Dr. Mota, Dr. Dow @ [facility] 01/31/16 ?Plan: Patient has a history of aortic valve replacement with bioprosthetic valve in 2015. Her most recent echocardiogram from 07/10/2021 demonstrated and ejection fraction of 60%, and stable appearing bioprosthetic aortic valve apparatus. We will continue to monitor with history, exam, and echocardiograms as deemed appropriate. She will continue with antibiotic prophylaxis per AHA guidelines. (6) HLD (hyperlipidemia): ?Status:?Chronic ?Qualifiers: ?Hyperlipidemia type:?unspecified? Qualified Code(s):?E78.5 - Hyperlipidemia, unspecified ?Plan: Patient has a history of hyperlipidemia. Her most recent lipid panel from 12/13/2021: cholesterol 114, HDL 42, LDL 48, triglycerides 120. She will continue rosuvastatin 20mg daily, along with aggressive risk factor and lifestyle modifications. ? (7) Essential hypertension: ?Status:?Chronic ?Plan: Patient has a history of hypertension. Her blood pressure is well controlled at this time. She will continue with her current medical therapy, along with monitoring her blood pressures at home. She will notify our office of any persistent high or low blood pressure readings. ? ? ? Orders: Orders 12 Lead EKG performed by BMS Today I48.1 9 - Other persistent atrial fibrillation ? Cardioversion Today I48.19 - Other persistent atrial fibrillation ? Basic Metabolic Profile (BMP) Today I48.19 - Other persistent atrial fibrillation ? CBC W/Diff, Automated Today R53.83 - Other fatigue ? Chest PA and Lateral Today I48.19 - Other persistent atrial fibrillation ? BNP,B-Type NATRIURETIC PEPTIDE Today R06.09 - Other forms of dyspnea ? Medications: Refilled amiodarone 200 mg? PO DAILY 30 tabs 11RF ? ? Plan Details Additional Comments: Patient will follow up in 2 months, or sooner if needed. Thank you for allowing me to participate in the care of your patient. Please don't hesitate to call if any issues arise. This note was generated using a voice recognition system and there may be incorrect words, spelling, or punctuation that were not noted when reviewing the office note prior to saving. Portions of this documentation were copied and pasted from previous office visit notes to provide a cohesive continuity of the history. The note has been reviewed, edited, and updated, as necessary. Follow Up: ? ? Keep as is? (MMM) ? ? 1 week EKG status post Cardioversion (Week of 03/26/2022) COVID (Procedure Consent) Procedure Criteria Procedure Criteria: Yes Elective The surgeon/proceduralist and patient have discussed in detail the risk of exposure to and/or potential harm posed by the COVID-19 virus with having a surgery/procedure at this time versus the risk of? delaying the surgery/procedure. It is not possible to know either the risk of delaying the surgery or procedure or chance of getting an infection with perfect accuracy, but a joint decision was made between the patient and the surgeon/proceduralist ?to proceed at this time with the scheduled surgery/procedure as indicated on the consent form. Coding Level of Care Code Off vis,est,level 4 Diagnoses Persistent atrial fibrillation? I48.19 SALAZAR (dyspnea on exertion)? R06.09 Fatigue? R53.83 Atherosclerosis of coronary artery of [place] heart without angina pectoris? I25.10 ? ? ? Coronary Disease-Associated Artery/Lesion type: [place] artery History of aortic valve replacement with bioprosthetic valve? Z95.3 HLD (hyperlipidemia)? E78.5 ? ? ? Hyperlipidemia type: unspecified Essential hypertension? I10 Coding Level of Care Code Off vis,est,level 4 Diagnoses Persistent atrial fibrillation? I48.19 SALAZAR (dyspnea on exertion)? R06.09 Fatigue? R53.83 Atherosclerosis of coronary artery of [place] heart without angina pectoris? I25.10 ? ? ? Coronary Disease-Associated Artery/Lesion type: [place] artery History of aortic valve replacement with bioprosthetic valve? Z95.3 HLD (hyperlipidemia)? E78.5 ? ? ? Hyperlipidemia type: unspecified Essential hypertension? I10 03/04/222001 <Electronically signed by Ivy Parker NP REAL ESTATE SALESPERSON-C> Ivy Parker NP REAL ESTATE SALESPERSON-C CC:? Dr. Rupert Osullivan MD ~ Assessment & Plan Addt'l Comments I have examined the patient and the H&P has been reviewed. There are no clinical changes since date of exam. This note was generated using a voice recognition system and there may be incorrect words, spelling or punctuation that were not noted when reviewing the office note prior to saving.
[2022-03-18 08:01] VITALS: BMI 34.5
--- NOTE | 2022-03-19 12:36 | PRO.PCM_ITS ---
Procedure Report Date of Procedure: 03/19/22 CONSCIOUS SEDATION REPORT DATE OF SERVICE: March 19, 2022 BRIEF HISTORY OF PRESENT ILLNESS: The patient is an 81-year-old female who presented to [facility] for elective outpatient cardioversion due to underlying atrial fibrillation. The patient did undergo a prior cardioversion in January 2022, during which time, she required 40 mg of propofol for sedation purposes. She is currently anticoagulated on Eliquis. She denied any prior anesthetic complications. She does have an apparent history of COPD along with obstructive sleep apnea, for which she utilizes nocturnal CPAP therapy. Her last surface echocardiogram demonstrated an ejection fraction of 60%. PHYSICAL EXAMINATION: VITAL SIGNS: Reviewed and were acceptable. GENERAL: The patient is a female, in no apparent distress, speaking in full sentences. HEENT: Normocephalic, atraumatic. Mucous membranes are moist and pink. Good mouth opening noted. Trachea is midline. Good neck mobility. CHEST: S1, S2 irregularly irregular. No murmurs, rubs or gallops were noted. LUNGS: Clear to auscultation bilaterally without appreciable wheezes, rales or rhonchi. ABDOMEN: Soft, nontender, nondistended. Positive bowel sounds. EXTREMITIES: There is no clubbing, cyanosis or edema. ASA Class: II DESCRIPTION OF PROCEDURE: After confirmation of informed consent, the patient's anesthesia plan was reviewed in detail. Propofol was chosen. Risks and benefits were reviewed and the patient agreed to proceed. At 1204, the patient was given 40 mg of propofol. The patient achieved an appropriate level of sedation and was given a 200 joule synchronized cardioversion by Dr. Worthington at the bedside. This was successful in achieving normal sinus rhythm. The patient was monitored until 1215, at which time she reached her baseline mental status and function. The patient tolerated the procedure well. COMPLICATIONS: None ESTIMATED BLOOD LOSS: None RECOMMENDATIONS: Okay to recover in usual fashion. Procedures Pulmonary 9xxxx: [id number] Con Sedation
--- NOTE | 2022-03-19 12:38 | CARDIOVERS_ITS ---
Cardioversion Cardioversion: Date: 03-19-2022 Procedure: Synchronized Biphasic DC Cardioversion Indications: Atrial fibrillation Consent: Per the Patient Anesthesia: per Dr. Ruggiero of pulmonology and critical care medicine with propofol 40 mg IV push total Procedure: Synchronized Biphasic DC Cardioversion: 200 J x 1: Result: Sinus rhythm Complications: no apparent complications This note was generated with [employer] software. It may contain incorrect words, spelling, and punctuation that were not noted in checking the note before signing.
== END 2022-03-19 13:15 | disposition home or self-care (01) ==
LOC: CLSP 10:30
PROVIDERS: PCP Family Medicine; Referring Provider Internal Medicine Cardiovascular Disease; Visit Provider Internal Medicine Cardiovascular Disease
DX: J44.9 Chronic obstructive pulmonary disease, unspecified (principal); I11.0 Hypertensive heart disease with heart failure; I50.9 Heart failure, unspecified; I48.19 Other persistent atrial fibrillation; E78.5 Hyperlipidemia, unspecified; I25.10 Atherosclerotic heart disease of native coronary artery without angina pectoris; I25.2 Old myocardial infarction; G47.33 Obstructive sleep apnea (adult) (pediatric); E66.9 Obesity, unspecified; K21.9 Gastro-esophageal reflux disease without esophagitis; E03.9 Hypothyroidism, unspecified; Z95.1 Presence of aortocoronary bypass graft; Z79.899 Other long term (current) drug therapy; Z79.01 Long term (current) use of anticoagulants; Z87.891 Personal history of nicotine dependence
CPT/HCPCS: 92960; 93005; J7040

== ENCOUNTER 2022-04-13 14:25 | Emergency (ER) | payer MEDICARE, SELFPAY ==
[2022-04-13 14:27] VITALS: BP 133/117; PULSE 76; RESP 16; TEMP 36.1; O2SAT 98; BMI 34.2
--- NOTE | 2022-04-13 14:42 | CT_ITS ---
INDICATION: parotid swelling EXAMINATION: CT NECK - CT Soft Tissue Neck W/O Contrast Injection TECHNIQUE: Multiple axial images were obtained of the neck. A radiation dose optimization technique was used for this scan. IV Contrast dosage and agent: None. COMPARISON: None. FINDINGS: NASOPHARYNX: Unremarkable. SUPRAHYOID NECK: Unremarkable oropharynx, oral cavity, parapharyngeal space, and retropharyngeal space. INFRAHYOID NECK: Unremarkable larynx, hypopharynx, and supraglottis. THYROID: Suboptimally evaluated. No focal lesion is definitely seen. SALIVARY GLANDS: Diffuse enlargement of the right parotid gland with edematous changes of the adjacent soft tissue extending to the region of the right submandibular gland. The right submandibular gland is somewhat ill-defined. The left submandibular gland and the left parotid gland are unremarkable. LYMPH NODES: No cervical or supraclavicular lymphadenopathy. VASCULAR STRUCTURES: Since of atherosclerotic calcifications of the carotid arteries bilaterally with probable significant stenosis. VISUALIZED PORTIONS OF THE ORBITS, PARANASAL SINUSES, MASTOID AIR CELLS AND SKULL BASE: Unremarkable. BONES: Degenerative changes in the level of C4-C5 with narrowing of the disc space, mild retrolisthesis and posterior degenerative spurs causing narrowing of the neural foramina. Mild degenerative changes at C6-7. THORACIC INLET: Sagittal unremarkable. CT/Soft Tissue Neck without Contr IMPRESSION: 1. Diffuse enlargement of the right parotid gland with edematous changes extending to the right submandibular gland consistent with parotitis and sialadenitis. 2. Atherosclerotic calcifications of the carotid arteries bilaterally. 3. Degenerative changes of the cervical spine. Electronically Signed: Alexandr Cabrera MD at 15:38 EST ,
--- NOTE | 2022-04-13 14:44 | EDS_ITS ---
HPI History of Present Illness Chief Complaint: Other, Pain/Inj Narrative Narrative: 81-year-old female past medical history of atrial fibrillation, on blood thinners, hypothyroidism, hyperlipidemia, hypertension presents with right jaw pain and swelling that she has had since last evening. She noticed that the area right under her right jaw and below has been swollen and painful, tender to touch. She thinks the area is turning red also. She denies any fevers or chills. No dental pain. No difficulty swallowing, no other symptoms. She does admit that at times she has dry mouth secondary to her medications/multiple medications that she takes for her various disease entities. No exacerbating or alleviating factors. [facility] Medical History Afib Atherosclerosis of coronary artery bypass graft without angina pectoris Atherosclerosis of coronary artery of [place] heart without angina pectoris Carotid artery stenosis CHF (congestive heart failure) Chronic anemia COPD with acute exacerbation Degeneration of intervertebral disc of lumbosacral region Depression Dyspnea Essential hypertension GERD (gastroesophageal reflux disease) GI bleed (~02/16/16) History of GI bleed (02/2016) History of non-ST elevation myocardial infarction (NSTEMI) (06/24/05) HLD (hyperlipidemia) Hypothyroidism Left bundle branch block Lumbar facet arthropathy Lumbosacral spondylosis Non-rheumatic aortic stenosis Obesity Old myocardial infarction ALMA (obstructive sleep apnea) Persistent atrial fibrillation Scarlet fever Severe aortic stenosis Stage 2 moderate COPD by GOLD classification Thyroid nodule Home Medications levothyroxine 88 mcg tablet 88 mcg PO DAILY 11/23/13 [History Last Taken 03/19/22] multivitamin-ferrous fumarate-folic acid 18 mg-400 mcg tablet 1 ea PO DAILY 02/07/17 [History Last Taken Unknown] calcium carbonate 500 mg-vitamin D3 5 mcg (200 unit) tablet (Os-Christian 500 + D3) 1 tab PO BID 11/28/17 [History Last Taken Unknown] mucus clearing device #1 ea 08/13/18 [History Last Taken Unknown] magnesium oxide 400 mg (241.3 mg magnesium) tablet (MagOx) 400 mg PO DAILY 12/31/18 [History Last Taken Unknown] albuterol sulfate 90 mcg/actuation aerosol inhaler (Ventolin HFA) 2 puff inhalation Q4H PRN shortness of breath or wheezing #18 grams 02/29/20 [Rx Last Taken Unknown] Disability Parking Placard #1 ea 05/30/20 [Rx Last Taken Unknown] nitroglycerin 0.4 mg sublingual tablet 0.4 mg sublingual Q5M PRN Chest Pain #25 tabs 01/30/21 [Rx Last Taken Unknown] amoxicillin 500 mg tablet 2,000 mg PO .COMPLEX #4 tabs 06/12/21 [Rx Last Taken Unknown] furosemide 20 mg tablet 20 mg PO DAILY PRN Swelling 06/12/21 [History Last Taken Unknown] potassium chloride 10 mEq tablet,extended release 10 meq PO DAILY PRN When you take Lasix for swelling 06/12/21 [History Last Taken Unknown] isosorbide mononitrate 20 mg tablet See Rx Instructions .Route .COMPLEX #180 tabs 07/13/21 [Rx Last Taken 03/19/22] tiotropium bromide 2.5 mcg/actuation mist for inhalation (Spiriva Respimat) 2 puff inhalation QDAY #1 ea 08/20/21 [Rx Last Taken Unknown] rosuvastatin 20 mg tablet See Rx Instructions .Route .COMPLEX #90 tabs 09/19/21 [Rx Last Taken Unknown] apixaban 5 mg tablet (Eliquis) 5 mg PO BID #60 tabs 12/13/21 [Rx Last Taken 03/19/22] amiodarone 200 mg tablet 200 mg PO DAILY #30 tabs 03/04/22 [Rx Last Taken 1 05/20/21] losartan 50 mg tablet 50 mg PO DAILY #90 tabs 03/15/22 [Rx Last Taken 03/19/22] pantoprazole 40 mg tablet,delayed release 40 mg PO DAILY #90 tabs 03/15/22 [Rx Last Taken Unknown] amoxicillin 875 mg-potassium clavulanate 125 mg tablet 1 tab PO BID #20 tabs 04/13/22 [Rx Last Taken Unknown] Allergy/AdvReac Type Severity Reaction Status Date / Time adhesive AdvReac Rash Verified 04/13/22 14:26 nickel AdvReac Rash Verified 04/13/22 14:26 wool AdvReac Rash Verified 04/13/22 14:26 Family History Mother CAD (coronary artery disease) Hypertension Alzheimer disease Daughter CAD (coronary artery disease) Myocardial infarction Sister Breast cancer Myocardial infarction Brother Myocardial infarction Father CVA (cerebral vascular accident) Heart disease Hypertension Aneurysm and dissection of heart Surgical History H/O aortic valve replacement (01/31/16) History of aortic valve replacement with bioprosthetic valve (~01/31/16) History of cardiac catheterization (~2015) History of cataract extraction (~2008) History of colonoscopy (~2007) History of colonoscopy (~2015) History of electrophysiologic study (02/02/16) History of hysterectomy History of inguinal herniorrhaphy History of lumpectomy of left breast History of partial thyroidectomy (~2008) History of squamous cell carcinoma excision Hx of cholecystectomy Previous back surgery S/P CABG x 2 (10/22/05) S/P CABG x 3 (~1986) Status post Mohs surgery for basal cell carcinoma (~2007) Stented coronary artery (~06/24/05) Social History Smoking Status: Former smoker quit date: 04/07/02 pack-years: 35 second hand exposure: No alcohol intake: never substance use type: does not use caffeine: Yes Type: coffee Number of servings: 2 ROS ROS ED ROS Narrative Constitutional: No fever, no chills. HEENT: No sore throat. No neck pain. No loss of vision. No rhinorrhea. Area under right jawline swollen, tender, reddened. Cardiovascular: No chest pain. No palpitations. No pedal edema. Respiratory: No cough, no shortness of breath. Abdominal: No abdominal pain. No nausea. No vomiting. Genitourinary: No dysuria. No hematuria. Musculoskeletal: No myalgias. No arthralgias. Neurologic: No headaches. No dizziness. No lightheadedness. Skin: No rash. No change in color. Psychiatric: No depression. No anxiety. EXAM Physical Exam Narrative Exam Narrative: Afebrile. Vital signs noted. HEENT: Normocephalic. Atraumatic. PERRL, EOMI. Neck soft and supple. No point tenderness or step off. Right parotid gland swelling with mild tenderness, minimal erythema, no fluctuance. No drooling or trismus. No Grant angina. Cardiovascular: Regular rate and rhythm. No murmurs, rubs, or gallops appreciated. Respiratory: No tachypnea. Lungs clear to auscultation bilaterally. Gastrointestinal: Abdomen soft, nontender, with normoactive bowel sounds. No rebound or guarding. Neurological: Awake. Alert. Nonfocal, nonlateralizing. Skin: No rash. Normal color. No pallor. Musculoskeletal: No pedal edema. Full range of motion extremities. Const Vital Signs: 04/13/22 14:27 04/13/22 15:04 Temperature 96.9 F L Temperature Source Temporal Pulse Rate 76 Respiratory Rate 16 Respiratory Effort Normal Non-Labored Respiratory Pattern Normal Blood Pressure 133/117 H Blood Pressure Mean 122 Pulse Ox 98 MDM MDM MDM Narrative Medical decision making narrative: In the differential diagnosis salivary stone versus abscess development. I discussed the patient with the cath lab radiology technician and it was felt that CT imaging without contrast of the soft tissue of the neck would be optimal to look for salivary stone versus fluid collection. It was not felt that laboratory work was required. I reviewed and interpreted the CT images and visualize diffuse right parotid gland swelling consistent with parotitis. I reviewed the radiology report and agree with the diffuse enlargement of the right parotid gland with edematous changes. She will be treated with her first dose of Augmentin here in the emergency department and a prescription written for the next 10 days to take twice daily. She was referred to the ENT physician on-call. She was told to use sour candies, and apply warm compresses to the area. Return instructions to the emergency department were reviewed. Disposition is discharged home in stable condition. Patient and her daughter are agreeable to the plan. Radiography Diagnostic Testing: Clinical Impression(s) from Imaging Studies Soft Tissue Neck CT 04/13/22 14:42 IMPRESSION: 1. Diffuse enlargement of the right parotid gland with edematous changes extending to the right submandibular gland consistent with parotitis and sialadenitis. 2. Atherosclerotic calcifications of the carotid arteries bilaterally. 3. Degenerative changes of the cervical spine. Electronically Signed: Alexandr Cabrera MD at 15:38 EST , Discharge Plan Triage Chief Complaint: Other, Pain/Inj ED Provider: Osman Dodge Dx/Rx/DC Orders Clinical Impression: Parotiditis, Jaw swelling, Sialadenitis Instructions: ED Salivary Gland Infection, ED Salivary Gland Swelling ... Prescriptions: New amoxicillin-pot clavulanate 875-125 mg tablet 1 tab PO BID Qty: 20 0RF No Action calcium carbonate-vitamin D3 [Os-Christian 500 + D3] 500 mg(1,250mg) -200 unit tablet 1 tab PO BID magnesium oxide [MagOx] 400 mg (241.3 mg magnesium) tablet 400 mg PO DAILY (DME) mucus clearing device device See Dose Instructions .ROUTE .MEDSUPPLY Qty: 1 Rx Instructions: As directed Ventolin HFA 90 mcg/actuation HFA aerosol inhaler 2 puff INHALATION Q4H PRN (Reason: shortness of breath or wheezing) Qty: 18 6RF Spiriva Respimat 2.5 mcg/actuation mist 2 puff INHALATION QDAY Qty: 1 6RF Rx Instructions: administer at approximately the same time(s) each day furosemide 20 mg tablet 20 mg PO DAILY PRN (Reason: Swelling) potassium chloride 10 mEq tablet extended release 10 meq PO DAILY PRN (Reason: When you take Lasix for swelling) amoxicillin 500 mg tablet 2,000 mg PO .COMPLEX Qty: 4 2RF Rx Instructions: 2,000 mg PO one hour prior to dental procedure Eliquis 5 mg tablet 5 mg PO BID Qty: 60 11RF amiodarone 200 mg tablet 200 mg PO DAILY Qty: 30 11RF levothyroxine 88 MCG tablet 88 mcg PO DAILY Label Comments: thyroid [id number] acid 1 EACH tablet 1 ea PO DAILY (DME) Disability Parking Placard See Rx Instructions .Route .MEDSUPPLY Qty: 1 0RF Rx Instructions: As directed nitroglycerin 0.4 mg tablet, sublingual 0.4 mg SUBLINGUAL Q5M PRN (Reason: Chest Pain) Qty: 25 3RF isosorbide mononitrate 20 mg tablet See Rx Instructions .ROUTE .COMPLEX Qty: 180 3RF Dose Instruction: TAKE 1 TABLET TWICE DAILY Rx Instructions: TAKE 1 TABLET TWICE DAILY rosuvastatin 20 mg tablet See Rx Instructions .ROUTE .COMPLEX Qty: 90 3RF Dose Instruction: TAKE 1 TABLET EVERY DAY Rx Instructions: TAKE 1 TABLET EVERY DAY losartan 50 mg tablet 50 mg PO DAILY Qty: 90 3RF pantoprazole 40 mg tablet,delayed release (DR/EC) 40 mg PO DAILY Qty: 90 3RF Primary Care Provider: Rupert Osullivan Referrals: Aiden Albert MD [Med Staff - Active Staff] - 3-5 Days if not improving Rupert Osullivan MD [Primary Care Provider] - 3-5 Days if not improving Disposition Disposition: Home, Self Care
[2022-04-13] MEDS: Amox/Clavulanate 875 MG Tablet PO (15:59)
== END 2022-04-13 16:10 | disposition home or self-care (01) ==
PROVIDERS: Emergency Provider Emergency Medicine; PCP Family Medicine; Visit Provider Emergency Medicine
DX: K11.20 Sialoadenitis, unspecified (principal); I48.19 Other persistent atrial fibrillation; R68.84 Jaw pain; I25.10 Atherosclerotic heart disease of native coronary artery without angina pectoris; M51.37 Other intervertebral disc degeneration, lumbosacral region; G47.33 Obstructive sleep apnea (adult) (pediatric); Z87.891 Personal history of nicotine dependence; Z79.01 Long term (current) use of anticoagulants
CPT/HCPCS: 70490; 99282

== ENCOUNTER → 2022-05-14 | Outpatient (CLI) | payer MEDICARE, SELFPAY ==
--- NOTE | 2022-05-14 12:53 | BI_ITS ---
MAMMOGRAPHY - BILATERAL SCREENING REASON FOR EXAM: Female, 81 years old. Routine annual screening examination. PERTINENT HISTORY: Sister with breast cancer. Prior right breast biopsies. Aunts with breast cancer. TECHNIQUE: Digital bilateral breast jennifer (3D mammographic acquisition) in the CC and MLO projections. 2-D mediolateral oblique (MLO) and craniocaudad (CC) views of both breasts were obtained. CAD: Full Field Digital Mammography with Computer Added Detection was performed. COMPARISON: Comparison is made with prior study dated 02/23/2021 and 02/11/2020. FINDINGS: Breast Composition: There are scattered areas of fibroglandular density. There are no dominant masses or suspicious calcifications. Once again, there is stable asymmetric breast tissue with more breast tissue is seen in the upper outer quadrant of the left breast as compared to the right side. Stable bilateral scattered calcifications. Stable small bilateral axillary lymph nodes. A tissue clip marker is once again seen in the retroareolar region of the left breast. No other significant abnormalities are identified. There has been no significant change since the prior study. BI/SCRN MAMM (CAD)W/JENNIFER BILAT IMPRESSION: Stable bilateral screening mammogram. Yearly follow-up mammogram recommended. (A) ASSESSMENT CATEGORY: BIRADS Category 2: Benign. A letter regarding these results will be sent to the patient by the facility within 30 days. Approximately 10% of breast cancers are not detected by mammography. A normal mammogram should not delay biopsy of a clinically suspicious abnormality. [id number] Electronically Signed: Tavon Bremudez MD at 14:12 EST ,
== END | disposition home or self-care (01) ==
LOC: OPBI 12:50
PROVIDERS: PCP Family Medicine; Referring Provider Family Medicine; Visit Provider Family Medicine
DX: Z12.31 Encounter for screening mammogram for malignant neoplasm of breast (principal); Z80.3 Family history of malignant neoplasm of breast
CPT/HCPCS: 77063; 77067

== ENCOUNTER → 2022-06-25 | Outpatient (CLI) | payer MEDICARE, SELFPAY ==
--- NOTE | 2022-06-26 07:31 | PFT ---
INTRODUCTION: The patient is an 81-year-old female who presents for pulmonary function studies secondary to a diagnosis of obstructive sleep apnea. Respiratory therapy reported good patient effort. Bronchodilators were used during testing. INTERPRETATION: Forced expiration spirometry demonstrates the presence of a mild large airways obstructive ventilatory defect. There was no significant response to aerosolized bronchodilators. Spirograms are of good quality and plateau gradually indicating slow emptying of the lungs. Body plethysmography was performed and revealed an elevated RV to 134% of predicted, indicative of underlying air trapping. Diffusing capacity by single breath CO was within normal limits. IMPRESSION: Irreversible mild large airways obstructive ventilatory defect with associated air trapping.
== END | disposition home or self-care (01) ==
LOC: PSN 10:36
PROVIDERS: PCP Family Medicine; Visit Provider Internal Medicine Critical Care Medicine
DX: G47.33 Obstructive sleep apnea (adult) (pediatric) (principal); J44.9 Chronic obstructive pulmonary disease, unspecified
CPT/HCPCS: 94060; 94726; 94729

== ENCOUNTER → 2022-07-16 | Outpatient (CLI) | payer MEDICARE, SELFPAY ==
[2022-07-16 13:01] VITALS: PULSE 82; PULSE 83; PULSE 87; PULSE 91; PULSE 93; PULSE 95; PULSE 96; PULSE 98; O2SAT 94; O2SAT 95; O2SAT 96; O2SAT 97
--- NOTE | 2022-07-17 05:41 | WT_ITS ---
PSN 6 Minute Walk Test 6 Minute Walk Test 6 Minute Walk Test: 6 Minute Walk Test PSN:6-Minute Walk Test Start: 07/16/22 13:00 Freq: Status: Active Protocol: [id number] Document 07/16/22 13:01 [facility] (Rec: 07/16/22 13:03 [facility] [id number]) 6 Minute Walk Test Date Performed 07/16/22 Time Performed 12:30 Height 5 ft Weight: 77.111 kg Weight in Pounds 170.[address]: Branden Bowers Assistive device used: None Pre-test Oxygen Delivery Method Room Air Pulse Ox (%) 97 Pulse Rate (60-100 beats/min) 82 Dyspnea Lula Scale (0-10) 0 1st minute Oxygen Delivery Method Room Air Pulse Ox (%) 96 Pulse Rate (60-100 beats/min) 87 Dyspnea Lula Scale (0-10) 0 Number of Rests Taken 0 2nd minute Oxygen Delivery Method Room Air Pulse Ox (%) 95 Pulse Rate (60-100 beats/min) 91 Dyspnea Lula Scale (0-10) 0 Number of Rests Taken 0 3rd minute Oxygen Delivery Method Room Air Pulse Ox (%) 95 Pulse Rate (60-100 beats/min) 93 Dyspnea Lula Scale (0-10) 0 Number of Rests Taken 0 4th minute Oxygen Delivery Method Room Air Pulse Ox (%) 94 Pulse Rate (60-100 beats/min) 95 Dyspnea Lula Scale (0-10) 0 Number of Rests Taken 0 5th minute Oxygen Delivery Method Room Air Pulse Ox (%) 94 Pulse Rate (60-100 beats/min) 96 Dyspnea Lula Scale (0-10) 0 Number of Rests Taken 0 6th minute Oxygen Delivery Method Room Air Pulse Ox (%) 95 Pulse Rate (60-100 beats/min) 98 Dyspnea Lula Scale (0-10) 0 Number of Rests Taken 0 Post-test Oxygen Delivery Method Room Air Pulse Ox (%) 97 Pulse Rate (60-100 beats/min) 83 Dyspnea Lula Scale (0-10) 0 Full Laps Walked 13 Partial Lap, Number of Tiles Walked 29 Total Distance Walked (ft) 796 Interpretation Interpretation: The patient was able to ambulate 796 feet over the course of 6 minutes on room air with no assistive devices or breaks. The patient experienced no significant desaturation or tachycardia during testing with a oxygen francoise of 94% and a peak heart rate of 98 beats per minute. These findings are consistent with a musculoskeletal limitation to exercise tolerance. Recommendations Recommendations: No supplemental oxygen is indicated at this time.
== END | disposition home or self-care (01) ==
LOC: PSN 12:25
PROVIDERS: PCP Family Medicine; Referring Provider Internal Medicine Critical Care Medicine; Visit Provider Internal Medicine Critical Care Medicine
DX: G47.33 Obstructive sleep apnea (adult) (pediatric) (principal); J44.9 Chronic obstructive pulmonary disease, unspecified
CPT/HCPCS: 94618

== ENCOUNTER → 2022-10-29 | Outpatient (CLI) | payer MEDICARE, SELFPAY ==
--- NOTE | 2022-10-29 12:53 | BD_ITS ---
STUDY: DUAL ENERGY X-RAY ABSORPTIOMETRY / DXA REASON FOR EXAM: Female, 82 years old. 733.90OsteopeniaBONE DENSITY REASON FOR EXAM TECHNIQUE: Bone Mineral Density (BMD) measurements of lumbar spine and bilateral hips were obtained. COMPARISON: Comparison is made with prior study July 16, 2018. FINDINGS: Lumbar Spine (L1-L4): g/cm2 (1.059) / T-score (0.2) / Z-score (3.0) Findings are suggestive of normal bone density with a low fracture risk. Left Femur Total: g/cm2 (0.949) / T-score (0.1) / Z-score (2.3) Left Femoral Neck: g/cm2 (0.600) / T-score (-2.2) / Z-score (0.2) Right Femur Total: g/cm2 (0.747) / T-score (-1.6) / Z-score (0.6) Right Femoral Neck: g/cm2 (0.623) / T-score (-2.0) / Z-score (0.4) The T-Scores on the most recent prior examination were: Lumbar Spine (L1-L4): There has been worsening of bone density since the previous examination. Left Femur Total: which represents an improvement of and 0.8%. Right Femur Total: which represents a worsening of 14.8%. BD/Dexa Bone Density Study IMPRESSION: The patient is considered osteopenic as outlined below according to World [employer]ish[employer] Organization (WHO) criteria with a high fracture risk. There has been worsening of bone density since the previous examination. Reference Information: The T-score is the number of standard deviations above or below the standard which is normal for young adults at their peak bone mineral density. The World Health Organization (WHO) interprets the T-scores as follows: Above -1 Normal bone density Between -1 and -2.5 Osteopenia Equal to / or below -2.5 Osteoporosis As a practical clinical guideline, osteopenia may be graded as follows: Mild -1 through -1.5 Moderate -1.6 through -2.0 Severe -2.1 through -2.4 The Z-score is the number of standard deviations above or below age-matched controls. A Z-score of less than -1.5 would be considered abnormal. References: 1. NIH Osteoporosis and Related Bone Diseases www osteo.org 2. International Society for Clinical Densitometry www iscd.org 3. National Osteoporosis Foundation www nof.org Electronically Signed: Tavon Bermudez MD at 14:10 EDT ,
== END | disposition home or self-care (01) ==
LOC: OPBD 12:48
PROVIDERS: PCP Family Medicine; Referring Provider Family Medicine; Visit Provider Family Medicine
DX: M85.88 Other specified disorders of bone density and structure, other site (principal)
CPT/HCPCS: 77080

== ENCOUNTER → 2023-01-07 | Outpatient (CLI) | payer MEDICARE, SELFPAY ==
[2023-01-07 10:39] LABS: Absolute Neutrophil Count 5.5 X10^3/uL (2.0-7.7); Basophil# 0.08 X10^3/uL; Eosinophil# 0.28 X10^3/uL; Eosinophils% 3.4 % (0-5); Hematocrit 43.5 % (37-47); Lymphocyte % 19.6 % (19-41); Mean Corp Hgb Conc 32.2 g/dL (32-36); Mean Corpuscular Hgb 31.1 pg (27.0-32.0); Mean Corpuscular Volume 96.7 fL (81-99); Mean Platelet Vol. 12.8 fl (6.2-12.0); Monocyte# 0.74 X10^3/uL; Monocyte% 9.1 % (0-10); NRBC Flagged by Analyzer 0 % (0-5); Neutrophil # 5.45 X10^3/uL (2.7-7.7); Neutrophil % 66.7 % (47-70); Platelet Count 190 K/mm3 (150-450); RBC Distribution Width CV 13.8 % (11.6-14.6); RBC Distribution Width SD 49.1 fl (35.1-43.9); White Blood Count 8.2 K/mm3 (4.4-11.0)
[2023-01-07 10:50] LABS: International Normalized Ratio 1.2
[2023-01-07 10:51] LABS: Partial Thromboplast Time 28.4 Seconds (24.1-36.2)
[2023-01-07 11:08] LABS: Anion Gap 3 (5-15); BUN 23 mg/dL (7-18); BUN/Creat Ratio 24.9 RATIO (10-20); Calcium,Total 9.6 mg/dL (8.5-10.1); Chloride 107 mmol/L (98-107); Creatinine, Serum 0.92 mg/dL (0.55-1.02); EST Glomerular Filtration Rate 62 mL/min (>60); Est Glom Filt Rate - Afr Amer 75 mL/min (>60); Glucose 117 mg/dL (74-106); Potassium 3.9 mmol/L (3.5-5.1); Sodium Level 141 mmol/L (136-145)
== END | disposition home or self-care (01) ==
PROVIDERS: PCP Family Medicine
DX: I65.23 Occlusion and stenosis of bilateral carotid arteries (principal); R79.9 Abnormal finding of blood chemistry, unspecified
CPT/HCPCS: 36415; 80048; 85025; 85610; 85730

== ENCOUNTER → 2023-03-13 | Outpatient (CLI) | payer MEDICARE, SELFPAY ==
[2023-03-13 10:11] LABS: Absolute Lymphocyte Count 1.68 X10^3/uL (0.83-4.51); Absolute Neutrophil Count 5.5 X10^3/uL (2.0-7.7); Basophil# 0.07 X10^3/uL; Basophil% 0.9 % (0-1); Eosinophil# 0.14 X10^3/uL; Eosinophils% 1.7 % (0-5); Hematocrit 41.5 % (37-47); Hemoglobin 13.6 g/dL (12.0-15.0); Lymphocyte # 1.68 X10^3/ul (0.83-4.51); Lymphocyte % 20.5 % (19-41); Mean Corp Hgb Conc 32.8 g/dL (32-36); Mean Corpuscular Hgb 31.9 pg (27.0-32.0); Mean Corpuscular Volume 97.2 fL (81-99); Mean Platelet Vol. 12.8 fl (6.2-12.0); Monocyte# 0.83 X10^3/uL; Monocyte% 10.1 % (0-10); NRBC Flagged by Analyzer 0 % (0-5); Neutrophil # 5.45 X10^3/uL (2.7-7.7); Neutrophil % 66.6 % (47-70); Platelet Count 139 K/mm3 (150-450); RBC Distribution Width CV 13.6 % (11.6-14.6); RBC Distribution Width SD 48.3 fl (35.1-43.9); Red Blood Count 4.27 M/mm3 (4.2-5.4); White Blood Count 8.2 K/mm3 (4.4-11.0)
[2023-03-13 10:29] LABS: Anion Gap 2 (5-15); BUN 22 mg/dL (7-18); BUN/Creat Ratio 20.4 RATIO (10-20); Calcium,Total 9.6 mg/dL (8.5-10.1); Chloride 105 mmol/L (98-107); Creatinine, Serum 1.08 mg/dL (0.55-1.02); EST Glomerular Filtration Rate 51 mL/min (>60); Est Glom Filt Rate - Afr Amer 62 mL/min (>60); Glucose 114 mg/dL (74-106); Potassium 3.7 mmol/L (3.5-5.1); Sodium Level 140 mmol/L (136-145)
== END | disposition home or self-care (01) ==
LOC: LAB 09:35
PROVIDERS: PCP Family Medicine
DX: Z01.810 Encounter for preprocedural cardiovascular examination (principal)
CPT/HCPCS: 36415; 80048; 85025

== ENCOUNTER → 2023-04-04 | Outpatient (CLI) | payer MEDICARE, SELFPAY ==
--- NOTE | 2023-04-04 10:54 | RAD_ITS ---
INDICATION: cough EXAMINATION/TECHNIQUE: X-RAY - XR Chest 2 Views COMPARISON: March 04, 2022 FINDINGS: LINES/DEVICES: There is a grossly stable endovascular prosthetic valve in place. LUNGS: There is stable blunting of the left costophrenic angle. No pneumothorax. MEDIASTINUM AND CARDIOVASCULAR STRUCTURES: There are sternotomy wires in place. Cardiac silhouette not enlarged. Central airways and mediastinal contour are unremarkable. BONES AND SOFT TISSUES: Unremarkable. RAD/Chest PA and Lateral IMPRESSION: No radiographic evidence of acute cardiopulmonary disease. Electronically Signed: Maryan Rehman MD at 11:50 EST ,
--- OUTSIDE RECORDS SUMMARY | 2023-04-04 11:22 | XMS RPT_ITS | CCD ---
Author Name Unknown Address [id number] [place] [address] Organization [facility] Care Team Providers Care Sill Worker Name Role Phone Noe Rodriguez MD Unavailable [phone] Noe Rodriguez MD Unavailable [phone] Miranda DE LUNA, Larisa Unavailable Unavailable Naveen Osullivan MD Primary Care Provider Noe Rodriguez MD Unavailable [phone] Noe Rodriguez MD Unavailable [phone] Naveen Osullivan MD A Primary Care Provider OSULLIVAN, ANVEEN A Primary Care Unavailable OSULLIVAN, NAVEEN A Referring Unavailable DAHIANAJACQUE Attending Unavailable OSULLIVAN, NAVEEN A Primary Care Unavailable GRANT, MELODY Attending Unavailable OSULLIVAN, NAVEEN A Primary Care Unavailable DAHIANA, JACQUE Referring Unavailable OSULLIVAN, NAVEEN A Primary Care Unavailable ZAHORUJKO, TAYLA R Referring Unavailable ZAHODAPHNEYO, TAYLA R Attending Unavailable DAHIANA, JACQUE Attending Unavailable OSULLIVAN, NAVEEN A Primary Care Unavailable ZAHORUJKO, TAYLA R Referring Unavailable OSULLIVAN, NAVEEN A Primary Care Unavailable ZAHORUJKO, TAYLA R Referring Unavailable ZAHORUJKO, TAYLA R Attending Unavailable OSULLIVAN, NAVEEN A Referring Unavailable DAHIANA, JACQUE Attending Unavailable OSULLIVAN, NAVEEN A Primary Care Unavailable OSULLIVAN, NAVEEN A Primary Care Unavailable OSULLIVAN, NAVEEN A Primary Care Unavailable CHARBEL ARTEAGA Attending Unavailable SELF, SELF Referring Unavailable OSULLIVAN, NAVEEN A Primary Care Unavailable DAHIANA, JACQUE Attending Unavailable ZAHORUBILLO, TAYLA R Referring Unavailable ALISTAIR STEVENSON Attending Unavailable OSULLIVAN, NAVEEN A Primary Care Unavailable SELF, SELF Referring Unavailable ОЛЬГА BROWN Attending Unavailable OSULLIVAN, NAVEEN A Primary Care Unavailable SELF, SELF Referring Unavailable GRANT, MELODY Referring Unavailable GRANT, MELODY Attending Unavailable NAVEEN OSULLIVAN A Primary Care Unavailable MELODY REN Referring Unavailable MELODY REN Attending Unavailable NAVEEN OSULLIVAN A Primary Care Unavailable NAVEEN OSULLIVAN A Primary Care Unavailable VON TOBIAS Attending Unavailable NAVEEN OSULLIVAN A Referring Unavailable NAVEEN OSULLIVAN A Primary Care Unavailable TAYLA CARTER Attending Unavailable TAYLA CARTER R Referring Unavailable NAVEEN OSULLIVAN A Primary Care Unavailable TAYLA CARTER R Referring Unavailable TAYLA CARTER Attending Unavailable AJCQUE TALBOT Attending Unavailable NAVEEN OSULLIVAN A Primary Care Unavailable JACQUE TALBOT Admitting Unavailable MELODY REN Attending Unavailable NAVEEN OSULLIVAN A Primary Care Unavailable JACQUE TALBOT Referring Unavailable JUAN JOSE HA Attending JUAN JOSE Perez Admitting NAVEEN Deluca Primary Care Unavailable Allergies Allergy Classification Reported Allergen(s) Allergy Type Date of Onset Reaction(s) Facility (20 sources) Lanolin Drug Allergy 09-29-2008 [facility] (20 sources) nickel sulfate Drug Allergy 12-09-2008 [facility] (20 sources) *Adhesive Tape Propensity to adverse reactions 03-22-2016 [facility] Medications Current Medications Medication Drug Class(es) Dates Sig (Normalized) Sig (Original) Albuterol (20 sources) beta2-Adrenergic Agonist Albuterol Sulfate (PROAIR HFA IN) Inhale 90 mcg as needed. 2 puffs 0 Active apixaban 5 mg oral tablet (19 sources) Factor Xa Inhibitor Start: 02-12-2022 take 1 tablet by mouth every twelve hours Eliquis 5 MG tablet Take 1 tablet by mouth every 12 hours. 0 02/12/2022 Active Calcium Carb-Cholecalcifer ol (OS-JOAQUIN PO) (20 sources) Calcium Carb-Cholecalcife rol (OS-JOAQUIN PO) Take 600 mg by mouth. 0 Active furosemide 40 mg oral tablet (20 sources) Loop Diuretic furOSEmide 40 MG Tab Take 0.5 tablets by mouth as needed. 0 Active Completed/Discontinued Medications Medication Drug Class(es) Dates Sig (Normalized) Sig (Original) acetaminophen 325 mg oral tablet (2 sources) Start: 03-19-2023 End: 03-19-2023 take 1 tablet by mouth every six hours as needed Acetaminophen (TYLENOL) tablet 325 mg Problems Active Problems Problem Classification Problem Date Documented Da te Episodic/Chronic Acute cerebrovascular disease (20 sources) Cerebrovascular accident; Translations: [Cerebral infarction, unspecified] Onset: 6 01-30-2016 Chronic Acute myocardial infarction (20 sources) Myocardial infarction; Translations: [Acute myocardial infarction, unspecified] Onset: 6 01-30-2016 Chronic Cardiac dysrhythmias (10 sources) Permanent atrial fibrillation; Translations: [Permanent atrial fibrillation] Onset: 3 02-19-2023 Chronic Chronic obstructive pulmonary disease and bronchiectasis (20 sources) Chronic obstructive lung disease; Translations: [Chronic obstructive pulmonary disease, unspecified] Onset: 6 12-29-2015 Chronic Complication of device; implant or graft (3 sources) Arteriosclerosis of coronary artery bypass graft; Translations: [Atherosclerosis of coronary artery bypass graft(s) without angina pectoris] Onset: 6 02-19-2023 Chronic Congestive heart failure; nonhypertensive (20 sources) Chronic diastolic heart failure; Translations: [Chronic diastolic (congestive) heart failure] Onset: 5 01-30-2016 Chronic Coronary atherosclerosis and other heart disease (20 sources) Coronary atherosclerosis; Translations: [Atherosclerotic heart disease of [place] coronary artery without angina pectoris] Onset: 5 01-30-2016 Chronic Disorders of lipid metabolism (20 sources) Hyperlipidemia; Translations: [Hyperlipidemia, unspecified] 01-30-2016 Chronic Esophageal disorders (20 sources) Gastroesophageal reflux disease; Translations: [Gastro-esophageal reflux disease without esophagitis] 01-30-2016 Chronic Essential hypertension (20 sources) Essential hypertension; Translations: [Essential (primary) hypertension] Onset: 5 01-30-2016 Chronic Gastritis and duodenitis (20 sources) Gastritis; Translations: [Gastritis, unspecified, without bleeding] 01-30-2016 Episodic Gastrointestinal hemorrhage (20 sources) Gastrointestinal hemorrhage; Translations: [Gastrointestinal hemorrhage, unspecified] 01-30-2016 Episodic Genitourinary symptoms and ill-defined conditions (20 sources) Increased frequency of urination; Translations: [Frequency of micturition] Onset: 6 12-29-2015 Episodic Heart valve disorders (20 sources) Aortic stenosis, non-rheumatic ; Translations: [Nonrheumatic aortic (valve) stenosis] Onset: 5 01-30-2016 Chronic Occlusion or stenosis of precerebral arteries (20 sources) Bilateral stenosis of carotid arteries; Translations: [Occlusion and stenosis of bilateral carotid arteries] Onset: 3 Chronic Other and unspecified benign neoplasm (1 source) Acoustic neuroma; Translations: [Benign neoplasm of cranial nerves] Chronic Other and unspecified benign neoplasm (20 sources) Polyp of colon; Translations: [Polyp of colon] 01-30-2016 Episodic Other ear and sense organ disorders (2 sources) Sensorineural hearing loss, bilateral; Translations: [Sensorineural hearing loss, bilateral] Onset: 3 Chronic Other nervous system disorders (2 sources) Other chronic pain; Translations: [Other chronic pain] Onset: 6 Chronic Other non-epithelial cancer of skin (20 sources) Malignant basal cell neoplasm of skin; Translations: [Basal cell carcinoma of skin, unspecified] Onset: 6 01-30-2016 Episodic Other nutritional; endocrine; and metabolic disorders (20 sources) Obese class I; Translations: [Obesity, unspecified] Onset: 0 10-25-2019 Chronic Other nutritional; endocrine; and metabolic disorders (2 sources) Obesity, unspecified; Translations: [Obesity, unspecified] Onset: 0 Chronic Other screening for suspected conditions (not mental disorders or infectious disease) (6 sources) Blood chemistry abnormal; Translations: [Abnormal finding of blood chemistry, unspecified] Onset: 3 10-30-2022 Episodic Other upper respiratory disease (1 source) Atrophy of vocal cord; Translations: [Other diseases of vocal cords] 02-21-2023 Episodic Other upper respiratory disease (2 sources) Other diseases of vocal cords; Translations: [Other diseases of vocal cords] Onset: 3 Episodic Residual codes; unclassified (20 sources) Obstructive sleep apnea syndrome; Translations: [Obstructive sleep apnea (adult) (pediatric)] 01-30-2016 Chronic Residual codes; unclassified (2 sources) Obstructive sleep apnea (adult) (pediatric); Translations: [Obstructive sleep apnea (adult) (pediatric)] Onset: 6 Chronic Residual codes; unclassified (3 sources) Amnesia; Translations: [Other amnesia] Episodic Spondylosis; intervertebral disc disorders; other back problems (20 sources) Prolapsed lumbar intervertebral disc; Translations: [Other intervertebral disc displacement, lumbar region] Onset: 4 01-30-2016 Chronic Thyroid disorders (20 sources) Hypothyroidism; Translations: [Hypothyroidism, unspecified] 01-30-2016 Chronic Unclassified (1 source) Low back pain, unspecified; Translations: [Low back pain, unspecified] Onset: 6 Past or Other Problems Problem Classification Problem Date Documented Date Episodic/Chronic Conditions associated with dizziness or vertigo (7 sources) Dizziness; Translations: [Dizziness and giddiness] Onset: 07-01-2022 Episodic Immunizations and screening for infectious disease (3 sources) Patient encounter status; Translations: [Encounter for screening for infections with a predominantly sexual mode of transmission] Onset: 04-25-2022 Episodic Residual codes; unclassified (2 sources) Other amnesia; Translations: [Other amnesia] Onset: 06-05-2022 Episodic Spondylosis; intervertebral disc disorders; other back problems (20 sources) Chronic low back pain; Translations: [Chronic bilateral low back pain without sciatica] Onset: 02-02-2016 02-02-2016 Episodic Unclassified (1 source) Low back pain, unspecified; Translations: [Low back pain, unspecified] Onset: 02-19-2023 Results Test Name Value Interpretation Reference Range Facil ity Vital Signs Date Time Vital Sign Value Performing Clinician Faci lity 03-19-2023 12:15-0500 Diastolic blood pressure 93 mm[Hg] Juan Jose Ha MD Work Phone: [facility] 03-19-2023 12:15-0500 Heart rate 76 /min Juan Jose Ha MD Work Phone: [facility] 03-19-2023 12:15-0500 Respiratory rate 20 /min Juan Jose Ha MD Work Phone: [facility] 03-19-2023 12:15-0500 SaO2% (BldA) [Mass fraction] 96 % Juan Jose Ha MD Work Phone: [facility] 03-19-2023 12:15-0500 Systolic blood pressure 128 mm[Hg] Juan Jose Ha MD Work Phone: [facility] 03-19-2023 06:39-0500 Body height 149.9 cm Juan Jose Ha MD Work Phone: [facility] 03-19-2023 06:39-0500 Body mass index (BMI) [Ratio] 34.91 kg/m2 Juan Jose Ha MD Work Phone: [facility] 03-19-2023 06:39-0500 Body temperature 98.2 [degF] Juan Jose Ha MD Work Phone: [facility] 03-19-2023 06:39-0500 Body weight 78.4 kg Juan Jose Ha MD Work Phone: [facility] 03-05-2023 09:00-0500 Body height 149.9 cm Tayla Rogerjko PAC Work Phone: [facility] 03-05-2023 09:00-0500 Body mass index (BMI) [Ratio] 35.14 kg/m2 Tayla Zahorujko PAC Work Phone: [facility] 03-05-2023 09:00-0500 Body weight 78.93 kg Tayla Zahorujko PAC Work Phone: [facility] 03-05-2023 09:00-0500 Diastolic blood pressure 74 mm[Hg] Tayla Zahorujko PAC Work Phone: [facility] 03-05-2023 09:00-0500 Heart rate 80 /min Tayla Zahorujko PAC Work Phone: [facility] 03-05-2023 09:00-0500 Systolic blood pressure 126 mm[Hg] Tayla Zahorujko PAC Work Phone: [facility] 02-21-2023 15:21-0500 Body height 149.9 cm Von Tobias MD Work Phone: [facility] 02-21-2023 15:21-0500 Body mass index (BMI) [Ratio] 35.14 kg/m2 Von Tobias MD Work Phone: [facility] 02-21-2023 15:21-0500 Body weight 78.93 kg Von Tobias MD Work Phone: [facility] 02-21-2023 15:21-0500 Respiratory rate 14 /min Von Tobias MD Work Phone: [facility] 02-19-2023 11:55-0500 Body height 149.9 cm Tayla Zahorujko PAC Work Phone: [facility] 02-19-2023 11:55-0500 Body mass index (BMI) [Ratio] 35.2 kg/m2 Tayla Zahorujko PAC Work Phone: [facility] 02-19-2023 11:55-0500 Body weight 79.1 kg Tayla Zahorujko PAC Work Phone: [facility] 02-19-2023 11:55-0500 Diastolic blood pressure 78 mm[Hg] Tayla Zahorujko PAC Work Phone: [facility] 02-19-2023 11:55-0500 Systolic blood pressure 146 mm[Hg] Tayla Zahorujko PAC Work Phone: [facility] 02-19-2023 10:26-0500 Body height 149.9 cm Charbel Arteaga MD Work Phone: [facility] 02-19-2023 10:26-0500 Body mass index (BMI) [Ratio] 35.22 kg/m2 Charbel Arteaga MD Work Phone: [facility] 02-19-2023 10:26-0500 Body weight 79.11 kg Charbel Arteaga MD Work Phone: 9(205)928-747995 [place] [address] 02-19-2023 10:26-0500 Diastolic blood pressure 78 mm[Hg] Charbel Arteaga MD Work Phone: [facility] 02-19-2023 10:26-0500 Heart rate 78 /min Charbel Arteaga MD Work Phone: [facility] 02-19-2023 10:26-0500 Systolic blood pressure 146 mm[Hg] Charbel Arteaga MD Work Phone: [facility] 02-03-2023 09:31-0400 Body height 149.9 cm Jacque Talbot MD Work Phone: [facility] 02-03-2023 09:31-0400 Body mass index (BMI) [Ratio] 35.39 kg/m2 Jacque Talbot MD Work Phone: [facility] 02-03-2023 09:31-0400 Body weight 79.47 kg Jacque Talbot MD Work Phone: [facility] 02-03-2023 09:31-0400 Diastolic blood pressure 72 mm[Hg] Jacque Talbot MD Work Phone: [facility] 02-03-2023 09:31-0400 Heart rate 70 /min Jacque Talbot MD Work Phone: [facility] 02-03-2023 09:31-0400 Systolic blood pressure 141 mm[Hg] Jacque Talbot MD Work Phone: 8(125)936-517165 [place] [address] 01-21-2023 13:10-0400 Heart rate 67 /min Jacque Talbot MD Work Phone: 7(094)863-297365 [place] [address] 01-21-2023 13:10-0400 Respiratory rate 23 /min Jacque Talbot MD Work Phone: 4(762)589-860465 [place] [address] 01-21-2023 13:10-0400 SaO2% (BldA) [Mass fraction] 95 % Jacque Talbot MD Work Phone: 7(438)675-306265 [place] [address] 01-21-2023 13:00-0400 Diastolic blood pressure 70 mm[Hg] Jacque aTlbot MD Work Phone: 8(993)788-009665 [place] [address] 01-21-2023 13:00-0400 Systolic blood pressure 151 mm[Hg] Jacque Talbot MD Work Phone: 8(576)290-666765 [place] [address] 01-21-2023 08:45-0400 Body temperature 97.9 [degF] Jacque Talbot MD Work Phone: 5(887)560-777165 [place] [address] 10-30-2022 08:36-0400 Body height 149.9 cm Jacque Talbot MD Work Phone: 8(432)194-401865 [place] [address] 10-30-2022 08:36-0400 Body mass index (BMI) [Ratio] 36.07 kg/m2 Jacque Talbot MD Work Phone: 4(302)920-079565 [place] [address] 10-30-2022 08:36-0400 Body weight 81.01 kg Jacque Talbot MD Work Phone: 5(895)119-209165 [place] [address] 10-30-2022 08:36-0400 Diastolic blood pressure 80 mm[Hg] Jacque Talbot MD Work Phone: 5(523)874-189065 [place] [address] 10-30-2022 08:36-0400 Heart rate 73 /min Jacque Talbot MD Work Phone: 3(812)668-424165 [place] [address] 10-30-2022 08:36-0400 Respiratory rate 20 /min Jacque Talbot MD Work Phone: 0(329)706-918865 [place] [address] 10-30-2022 08:36-0400 SaO2% (BldA) [Mass fraction] 97 % Jacque Talbot MD Work Phone: 0(150)923-328365 [place] [address] 10-30-2022 08:36-0400 Systolic blood pressure 146 mm[Hg] Jacque Talbot MD Work Phone: 3(829)752-614365 [place] [address] 10-30-2022 07:54-0400 Body mass index (BMI) [Ratio] 34.18 kg/m2 Tayla Zahorujko PAC Work Phone: 5(069)732-034265 [place] [address] 10-30-2022 07:54-0400 Body weight 79.38 kg Tayla Zahorujko PAC Work Phone: 4(923)842-850265 [place] [address] 10-30-2022 07:54-0400 Diastolic blood pressure 72 mm[Hg] Tayla Zahorujko PAC Work Phone: 9(195)036-176265 [place] [address] 10-30-2022 07:54-0400 Heart rate 63 /min Tayla Zahorujko PAC Work Phone: 8(246)277-431765 [place] [address] 10-30-2022 07:54-0400 Systolic blood pressure 158 mm[Hg] Tayla Zahorujko PAC Work Phone: 1(220)264-104665 [place] [address] 09-11-2022 12:03-0400 Body height 152.4 cm Jacque Talbot MD Work Phone: 2(808)157-783765 [place] [address] 09-11-2022 12:03-0400 Body mass index (BMI) [Ratio] 34.43 kg/m2 Jacque Talbot MD Work Phone: 8(762)600-840765 [place] [address] 09-11-2022 12:03-0400 Body temperature 97.9 [degF] Jacque Talbot MD Work Phone: 1(664)496-431465 [place] [address] 09-11-2022 12:03-0400 Body weight 79.97 kg Jacque Talbot MD Work Phone: [facility] 09-11-2022 12:03-0400 Diastolic blood pressure 92 mm[Hg] Jacque Talbot MD Work Phone: [facility] 09-11-2022 12:03-0400 Heart rate 103 /min Jacque Talbot MD Work Phone: [facility] 09-11-2022 12:03-0400 SaO2% (BldA) [Mass fraction] 95 % Jacque Talbot MD Work Phone: [facility] 09-11-2022 12:03-0400 Systolic blood pressure 167 mm[Hg] Jacque Talbot MD Work Phone: [facility] 08-20-2022 14:44-0400 Body height 152.4 cm Alistair Stevenson MD Work Phone: [facility] 08-20-2022 14:44-0400 Body mass index (BMI) [Ratio] 34.18 kg/m2 Alistair Stevenson MD Work Phone: [facility] 08-20-2022 14:44-0400 Body weight 79.38 kg Alistair Stevenson MD Work Phone: [facility] 08-20-2022 14:44-0400 Heart rate 82 /min Alistair Stevenson MD Work Phone: [facility] 08-20-2022 14:44-0400 SaO2% (BldA) [Mass fraction] 96 % Alistair Stevenson MD Work Phone: [facility] 07-01-2022 17:49-0400 Diastolic blood pressure 79 mm[Hg] Melody Ren MD Work Phone: [facility] 07-01-2022 17:49-0400 Heart rate 97 /min Melody Ren MD Work Phone: [facility] 07-01-2022 17:49-0400 Systolic blood pressure 178 mm[Hg] Melody Ren MD Work Phone: 4(598)819-928683 [place] [address] 07-01-2022 17:47-0400 Body height 152.4 cm Melody Ren MD Work Phone: 5(575)237-680883 [place] [address] 06-05-2022 15:01-0500 Body height 152.4 cm Melody Ren MD Work Phone: 2(752)628-585683 [place] [address] 06-05-2022 15:01-0500 Diastolic blood pressure 79 mm[Hg] Melody Ren MD Work Phone: 1(437)139-641883 [place] [address] 06-05-2022 15:01-0500 Heart rate 86 /min Melody Ren MD Work Phone: 8(057)358-481483 [place] [address] 06-05-2022 15:01-0500 Systolic blood pressure 180 mm[Hg] Melody Ren MD Work Phone: 7(234)336-236383 [place] [address] 04-25-2022 13:12-0500 Body height 152.4 cm Melody Ren MD Work Phone: 9(196)713-606783 [place] [address] 04-25-2022 13:12-0500 Body mass index (BMI) [Ratio] 34.65 kg/m2 Melody Ren MD Work Phone: 8(152)211-986183 [place] [address] 04-25-2022 13:12-0500 Body weight 80.47 kg Melody Ren MD Work Phone: 0(548)989-996783 [place] [address] 04-25-2022 13:12-0500 Diastolic blood pressure 72 mm[Hg] Melody Ren MD Work Phone: 7(153)209-558583 [place] [address] 04-25-2022 13:12-0500 Heart rate 80 /min Melody Ren MD Work Phone: 5(570)611-414183 [place] [address] 04-25-2022 13:12-0500 Systolic blood pressure 138 mm[Hg] Melody Ren MD Work Phone: 5(150)773-118183 [place] [address] 09-05-2021 14:41-0400 Body height 152.4 cm Jacque Talbot MD Work Phone: [facility] 09-05-2021 14:41-0400 Body mass index (BMI) [Ratio] 32.22 kg/m2 Jacque Talbot MD Work Phone: [facility] 09-05-2021 14:41-0400 Body weight 74.84 kg Jacque Talbot MD Work Phone: [facility] 09-05-2021 14:41-0400 Diastolic blood pressure 71 mm[Hg] Jacque Talbot MD Work Phone: [facility] 09-05-2021 14:41-0400 Heart rate 79 /min Jacque Talbot MD Work Phone: [facility] 09-05-2021 14:41-0400 SaO2% (BldA) [Mass fraction] 98 % Jacque Talbot MD Work Phone: [facility] 09-05-2021 14:41-0400 Systolic blood pressure 126 mm[Hg] Jacque Talbot MD Work Phone: [facility] Encounters Encounter Date Encounter Type Care Provider Facility Start: 03-19-2023 End: 03-19-2023 ambulatory JUAN JOSE HA Facility:[facility] Start: 03-19-2023 End: 03-19-2023 Subsequent hospital visit by physician Juan Jose Ha MD Work Phone: Cardiology In[facility] Procedures Date Procedure Procedure Detail Performing Clinician Start: 03-19-2023 Cath placement & njx coronary art angio img s&i Jacque Talbot MD Work Phone: Start: 03-19-2023 Cardiac catheterization Jacque Talbot MD Work Phone: Start: 03-19-2023 Ecg routine ecg w/least 12 lds w/i&r Swapnil Gilmore MD Start: 03-05-2023 Myocardial spect multiple studies Jacque Talbot MD Work Phone: Start: 02-19-2023 History of coronary artery bypass grafting Hx of coronary artery bypass graft Charbel Arteaga MD Work Phone: Start: 02-19-2023 Echo tthrc r-t 2d w/wom-mode compl spec&colr d Jacque Talbot MD Work Phone: Start: 01-21-2023 End: 01-21-2023 Antibody screen Jacque Talbot MD Work Phone: Plan of Treatment Date Care Activity Detail Author Start: 08-21-2031 Tetanus vaccination TETANUS [facility] Start: 10-31-2023 Potassium [Moles/volume] in Serum or Plasma POTASSIUM [facility] Start: 05-28-2023 End: 05-28-2023 Patient encounter procedure 05/28/2023 10:00 AM EST Office Visit [facility] [address] [address] Charbel Arteaga MD [address] [place] [id number] [facility] [place] Start: 04-25-2023 Thyroid stimulating hormone measurement TSH [facility] Start: 03-05-2023 End: 03-05-2023 Patient encounter procedure 03/05/2023 8:15 AM EST Appointment [facility] [address] [place] [address] [id number] Tayla Carter, PAC [address] [place] [id number] [facility] Start: 03-05-2023 Subsequent hospital visit by physician 03/05/2023 8:15 AM EST Hospital Encounter [facility] [address] [place] [address] [phone] Tayla Carter, PAC [address] [place] [phone] [facility] Start: 02-21-2023 End: 02-21-2023 Patient encounter procedure 02/21/2023 3:15 PM EST Office Visit [facility] [place] [address] [facility] [address] [place] [address] Von Tobias MD [address] [facility] [address] [address] [place] [address] [facility] [place] Start: 02-20-2023 End: 08-21-2023 MR Internal auditory canal WO and W contrast IV MRI INTERNAL AUDITORY CANAL WITH AND WITHOUT CONTRAST Imaging Routine Vestibular schwannoma Expected: 02/20/2023 (Approximate), Expires: 08/21/2023 [facility] Immunizations Immunization Date Immunization Notes Care Provider Fa cility 02-01-2022 Influenza Vaccine, Quadrivalent, Adjuvanted Melody Ren MD Work Phone: [facility] 02-01-2022 influenza virus vacc ine, unspecified formulation Jacque Talbot MD Work Phone: [facility] 08-20-2021 COVID-19 vaccine, Michael Hodges, 50 mcg/0.25 mL booster Melody Ren MD Work Phone: [facility] 08-20-2021 tetanus toxoid, redu jens diphtheria toxoid, and acellular pertussis vaccine, adsorbed Melody Ren MD Work Phone: [facility] 03-02-2021 COVID-19 vaccine, Michael Hodges, 50 mcg/0.25 mL booster Melody Ren MD Work Phone: [facility] 02-19-2021 Influenza Vaccine, Quadrivalent, Adjuvanted Melody Ren MD Work Phone: [facility] 06-28-2020 hepatitis A vaccine, adult dosage Melody Ren MD Work Phone: [facility] 05-26-2020 COVID-19 vaccine, Michael Hodges, 100 mcg/0.5 mL Melody Ren MD Work Phone: [facility] 05-08-2020 COVID-19 vaccine, Michael Hodges, 100 mcg/0.5 mL Melody Ren MD Work Phone: [phone] [address] 04-28-2020 COVID-19 vaccine, Michael Hodges, 100 mcg/0.5 mL Melody Ren MD Work Phone: [facility] 04-07-2020 COVID-19 vaccine, Michael Hodges, 100 mcg/0.5 mL Melody Ren MD Work Phone: [phone] [address] 02-21-2020 zoster vaccine recombinant Melody Ren MD Work Phone: [facility] 10-29-2019 hepatitis A vaccine, adult dosage Melody Ren MD Work Phone: [phone] [place] [address] 10-29-2019 zoster vaccine recombinant Melody Ren MD Work Phone: [facility] 01-07-2018 influenza, injectabl e, quadrivalent, contains preservative Melody Ren MD Work Phone: [facility] 01-06-2018 influenza, high dose seasonal, preservative-free Melody Ren MD Work Phone: [facility] 01-03-2017 influenza, injectabl e, quadrivalent, contains preservative Melody Ren MD Work Phone: [facility] 01-06-2016 influenza virus vacc ine, unspecified formulation Jacque Talbot MD Work Phone: [facility] 01-04-2016 influenza, seasonal, injectable Melody Ren MD Work Phone: [facility] 02-05-2014 pneumococcal conjuga te vaccine, 13 shelley Ren MD Work Phone: [facility] 08-05-2005 pneumococcal polysaccharide vaccine, 23 shelley Ren MD Work Phone: [facility] Payers Date Payer Category Payer Medicare MEDICARE [employer] H[employer] PPO MEDICARE [employer] HMO PPO [id number] 2017-Present [address] [address] [place] [address] [id number] 2017 Medicare [id number] 1940 Unknown [id number] 1939 Unknown [id number] 1939 Unknown [id number] [id number] 1939 Unknown [id number] [id number] 1939 Unknown [id number] [id number] 1939 Unknown [id number] [id number] 1939 Unknown [id number] [id number]4 1939 Unknown [id number] 2.16.840.1.879743.3.579.2.594 1939 Unknown [id number] 2.16.840.1.681299.3.579.2.594 1939 Unknown [id number] 2.16.840.1.002192.3.579.2.594 1939 Unknown [id number] 2.16.840.1.985130.3.579.2.594 1939 Unknown [id number] 2.16.840.1.907825.3.579.2.594 1939 Unknown [id number] 2.16.840.1.886739.3.579.2.594 1939 Unknown [id number] 2.16.840.1.673727.3.579.2.594 1939 Unknown [id number] [id number] 1939 Unknown [id number] [id number] 1939 Unknown [id number] [id number] 1939 Unknown [id number] [id number] 1939 Unknown [id number] [id number] 1939 Unknown [id number] Social History Date Type Detail Facility Start: 01-15-2016 End: 02-19-2023 Tobacco smoking status NHIS Ex-smoker [facility] Start: 1955 End: 04-07-2003 History of tobacco use Current smoker [facility] Start: 1955 End: 04-07-2003 History of tobacco use Cigarette Smoker [facility] Start: 01-15-2016 End: 03-19-2023 Cigarettes smoked current (pack per day) - Reported 1 [facility] Start: 01-15-2016 End: 02-19-2023 Tobacco use and exposure Smokeless tobacco non-user [facility] Start: 09-05-2021 End: 03-19-2023 Alcohol intake Current drinker of alcohol (finding) [facility] Start: 12-09-2008 History SDOH Alcohol Comment occasionally [facility] Start: 02-09-2015 End: 04-25-2022 Tobacco Comment quit 11 years ago [facility] Start: 1940 Sex Assigned At Not on file O [facility] Start: 03-03-2022 End: 04-25-2022 Exposure to SARS-CoV-2 (event) Unable to assess [facility] Start: 04-25-2022 Alcohol Comment Wine with dinn er once in awhile [facility] Start: 05-26-2022 End: 06-05-2022 Exposure to SARS-CoV-2 (event) Not sure [facility] Start: 09-11-2022 End: 03-19-2023 Tobacco use panel [facility] Gender identity Identifies as fe male gender (finding) [facility] Medical Equipment Procedure Code Equipment Code Equipment Origin al Text Equipment Identifier Dates Lead Ana Starr 58cm - [id number] Start: 02-01-2016 Valve Tavr Evolu t Us 26 - [id number] Start: 01-31-2016 Clinical Notes 09-05-2021 to 03-19-2023 Nursing Notes - Hayley Melendez RN - 03/19/2023 12:07 PM ESTNursing Notes - Hayley Melendez RN - 03/19/2023 12:07 PM ESTBrief Op Note - Swapnil Gilmore MD - 03/19/2023 9:26 AM ESTPatient Instructions Note Date & Type Note Facility 03-19-2023 Nurse Note After Visit Summary reviewed with patient by Hayley DE LUNA, and all questions answered. RN reviewed what medications patient still needs for the day, patient verbalized understanding. IV dc'd with no difficulty and tip intact. Telemetry dc'd. VS stable at time of discharge. Patient being discharged to home with daughter. No patient belongings left at bedside. No further issues at time of discharge. Hayley Melendez RN [facility] 03-19-2023 Miscellaneous Notes After Visit Summary reviewed with patient by Hayley DE LUNA, and all questions answered. RN reviewed what medications patient still needs for the day, patient verbalized understanding. IV dc'd with no difficulty and tip intact. Telemetry dc'd. VS stable at time of discharge. Patient being discharged to home with daughter. No patient belongings left at bedside. No further issues at time of discharge. 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 Post-procedure anticoagulation already ordered: No, call primary care team to have heparin infusion re-initiated Estimated Blood Loss Minimal Complications None Admission Does patient need to be admitted: No Surgeon Surgeon(s) and Role: * Dragan Alcaraz MD - Primary * Tigre Mortensen DO - Fellow * Swapnil Gilmore MD - Fellow Procedural Staff Manager Cash: Vandana Knox RN; Patty Gallegos RN Documenter: Toshia Hernandez RN Full report to follow Swapnil Gilmore MD March 19, 2023 9:26 AM Pt arrives to room 2402 in IPR for cor/lv. ECG completed. IV started in left arm. 0.9 NS IVF initiated @ 100mL/ hr per pump. Pt prep completed. Valuables given to daughter. Clothes secured in room. Questions about procedure answered. Family brought to bedside. Bed in low position, side rail up x2 and call light given to pt. Tele monitor shows a fib. 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 You are to arrive at [facility] on the 1st floor at 6:00 AM You may use [employer] parking ($10) or park in the [employer] Parking Garage just past the [place] ($3). There is a walkway from the 2nd floor of the garage into the [place] Lobby. You are to have nothing to eat after MIDNIGHT You may drink CLEAR liquids up to the time you arrive or 2 hrs before the procedure. (water, juice, clear soda, tea, coffee NO CREAMERS). YOU ARE TO TAKE YOUR MEDICATIONS USUAL ON THE AM OF THE PROCEDURE UNLESS OTHERWISE INSTRUCTED. THEN SEE BELOW. +++++++++++++++++++++++++++++++++ ++++++++++++++++++++++++++++++++ HOLD ELIQUIS FOR 2 DAYS BEFORE THE CATH DON'T TAKE IT ON MON, TU OR WED AM BEFORE THE CATH. +++++++++++++++++++++++++++++++++ ++++++++++++++++++++++++++++++++ PLEASE BRING A COMPLETE AND ACCURATE LIST OF ALL THE MEDICATIONS THAT YOU TAKE ON A REGULAR BASIS. BRING AN OVERNIGHT BAG JUST IN CASE YOU HAVE TO SPEND THE NIGHT. JUST ESSENTIALS YOU WOULD NEED FOR BED. YOU ARE HAVING A LEFT HEART CATH - Expect to be at the hospital 6 - 8 hrs. If you get a stent, you may have to stay the night. +++++++++++++++++++++++++++++++++ +++++++++++++++++++++++++++++++++ SINCE YOU REQUIRE CPAP, bring it with you. +++++++++++++++++++++++++++++++++ +++++++++++++++++++++++++++++++++ If you have a contrast dye or iodine allergy or if you are on Coumadin or any other major blood thinners like Eliquis, Xarelto, Pradaxa and it was NOT addressed during scheduling, please call NOW to notify the lab ([phone]). You may receive sedation during your procedure and will not be permitted to drive yourself home. You will not be allowed to drive for 24-48 hrs. You will need a friend or family member to accompany you home (a taxi or bus is not acceptable). Failure to have a responsible person on discharge will result in cancellation of your procedure. HOSPITAL POLICY SAYS THAT YOU ARE PERMITTED TWO (2) VISITORS WITH YOU. ALTHOUGH, THE PREP AND RECOVERY AREA WHERE YOU WILL BE, ONLY ALLOWS 1 VISITOR AT A TIME WITH YOU IN THE ROOM BEFORE AND AFTER THE PROCEDURE. Labs: PLEASE GO TO [facility] TO HAVE YOUR LAB WORK DRAWN ABOUT 1 WEEK BEFORE YOUR PROCEDURE. GO THE WEEK OF 03/10 - 03/17 THESE ARE NOT FASTING LABS. YOU MAY BE TOLD BY ANOTHER DEPARTMENT THAT YOU WILL RECEIVE A REMINDER CALL THE DAY BEFORE YOUR PROCEDURE, BUT YOU WILL NOT RECEIVE A REMINDER CALL. IF YOU HAVE ANY QUESTIONS REGARDING THE PROCEDURE CALL US AT : [phone] THANK YOU, JEYSON DE LUNA Ebay Reseller Scheduling The above instructions were given to patient verbally over the phone AND VIA MY CHART I called to schedule Ms. Martinez's heart cath. The number we have is her daughters. She said that her mom doesn't know anything about the cath yet. She asked that I give her a little time and call again in about an hour. 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 Post-procedure anticoagulation already ordered: No, call primary care team to have heparin infusion re-initiated Estimated Blood Loss Minimal Complications None Admission Does patient need to be admitted: No Surgeon Surgeon(s) and Role: * Dragan Alcaraz MD - Primary * Tigre Mortensen DO - Fellow * Swapnil Gilmore MD - Fellow Procedural Staff Manager Cash: Vandana Knox RN; Patty Gallegos RN Documenter: Toshia Hernandez RN Full report to follow Swapnil Gilmore MD March 19, 2023 9:26 AM [facility] 03-19-2023 History and physical note PRE-CATH H&P UPDATE Patient seen and examined by me on day of procedure. Agree with H&P as documented by Dr. Arteaga on 02/19/23, there are no significant updates or changes. Kiara Martinez is a 82 y.o. female with a history of CAD S/P CABG. This cardiac catheterization is being done to investigate an abnormal stress test. Right radial artery: +Barbeau. Normal. Allergies, Laboratory Studies: is allergic to adhesive [*adhesive tape], lanolin, nickel, and wool alcohol [lanolin]. Lab Results Component Value Date CREATSERUM 0.90 10/30/2022 Lab Results Component Value Date INR 1.2 (H) 10/30/2022 INR 1.3 (H) 01/31/2016 PTT 31.0 10/30/2022 PTT 31 01/31/2016 Lab Results Component Value Date WBC 9.10 10/30/2022 HGB 12.9 10/30/2022 HCT 40.9 10/30/2022 PLATELET 156 10/30/2022 MCV 95.8 10/30/2022 Estimated GFR: Estimated Creatinine Clearance: 43 mL/min (by C-G formula based on SCr of 0.9 mg/dL). Additionally: Surgery Scheduled in the next 12 months: No History of pathologic bleeding: No Potential barriers to dual antiplatelet therapy: No Allergy to contrast dye: No Estimated Creatinine Clearance: 43 mL/min (by C-G formula based on SCr of 0.9 mg/dL). Access concerns: No Anticipated access will be left radial artery or right femoral artery. Consent signed and sedation assessment completed. Will proceed with left heart catheterization with coronary angiography. Tigre Mortensen, DO Fellow, Cardiovascular Medicine [facility] Work Phone: 03-19-2023 History and physical note PRE-CATH H&P UPDATE Patient seen and examined by me on day of procedure. Agree with H&P as documented by Dr. Arteaga on 02/19/23, there are no significant updates or changes. Kiara Martinez is a 82 y.o. female with a history of CAD S/P CABG. This cardiac catheterization is being done to investigate an abnormal stress test. Right radial artery: +Barbeau. Normal. Allergies, Laboratory Studies: is allergic to adhesive [*adhesive tape], lanolin, nickel, and wool alcohol [lanolin]. Lab Results Component Value Date CREATSERUM 0.90 10/30/2022 Lab Results Component Value Date INR 1.2 (H) 10/30/2022 INR 1.3 (H) 01/31/2016 PTT 31.0 10/30/2022 PTT 31 01/31/2016 Lab Results Component Value Date WBC 9.10 10/30/2022 HGB 12.9 10/30/2022 HCT 40.9 10/30/2022 PLATELET 156 10/30/2022 MCV 95.8 10/30/2022 Estimated GFR: Estimated Creatinine Clearance: 43 mL/min (by C-G formula based on SCr of 0.9 mg/dL). Additionally: Surgery Scheduled in the next 12 months: No History of pathologic bleeding: No Potential barriers to dual antiplatelet therapy: No Allergy to contrast dye: No Estimated Creatinine Clearance: 43 mL/min (by C-G formula based on SCr of 0.9 mg/dL). Access concerns: No Anticipated access will be left radial artery or right femoral artery. Consent signed and sedation assessment completed. Will proceed with left heart catheterization with coronary angiography. Tigre Mortensen, DO Fellow, Cardiovascular Medicine documented in this encounter [facility] 03-19-2023 Nurse Note Pt arrives to room 2402 in IPR for cor/lv. ECG completed. IV started in left arm. 0.9 NS IVF initiated @ 100mL/ hr per pump. Pt prep completed. Valuables given to daughter. Clothes secured in room. Questions about procedure answered. Family brought to bedside. Bed in low position, side rail up x2 and call light given to pt. Tele monitor shows a fib. 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 You are to arrive at [facility] on the 1st floor at 6:00 AM You may use avionics systems repairer parking ($10) or park in the [employer] Garage just past the [place] ($3). There is a walkway from the 2nd floor of the garage into the [place] Lobby. You are to have nothing to eat after MIDNIGHT You may drink CLEAR liquids up to the time you arrive or 2 hrs before the procedure. (water, juice, clear soda, tea, coffee NO CREAMERS). YOU ARE TO TAKE YOUR MEDICATIONS USUAL ON THE AM OF THE PROCEDURE UNLESS OTHERWISE INSTRUCTED. THEN SEE BELOW. +++++++++++++++++++++++++++++++++ ++++++++++++++++++++++++++++++++ HOLD ELIQUIS FOR 2 DAYS BEFORE THE CATH DON'T TAKE IT ON FRI, OR FRI AM BEFORE THE CATH. +++++++++++++++++++++++++++++++++ ++++++++++++++++++++++++++++++++ PLEASE BRING A COMPLETE AND ACCURATE LIST OF ALL THE MEDICATIONS THAT YOU TAKE ON A REGULAR BASIS. BRING AN OVERNIGHT BAG JUST IN CASE YOU HAVE TO SPEND THE NIGHT. JUST ESSENTIALS YOU WOULD NEED FOR BED. YOU ARE HAVING A LEFT HEART CATH - Expect to be at the hospital 6 - 8 hrs. If you get a stent, you may have to stay the night. +++++++++++++++++++++++++++++++++ +++++++++++++++++++++++++++++++++ SINCE YOU REQUIRE CPAP, bring it with you. +++++++++++++++++++++++++++++++++ +++++++++++++++++++++++++++++++++ If you have a contrast dye or iodine allergy or if you are on Coumadin or any other major blood thinners like Eliquis, Xarelto, Pradaxa and it was NOT addressed during scheduling, please call NOW to notify the lab ([phone]). You may receive sedation during your procedure and will not be permitted to drive yourself home. You will not be allowed to drive for 24-48 hrs. You will need a friend or family member to accompany you home (a taxi or bus is not acceptable). Failure to have a responsible person on discharge will result in cancellation of your procedure. HOSPITAL POLICY SAYS THAT YOU ARE PERMITTED TWO (2) VISITORS WITH YOU. ALTHOUGH, THE PREP AND RECOVERY AREA WHERE YOU WILL BE, ONLY ALLOWS 1 VISITOR AT A TIME WITH YOU IN THE ROOM BEFORE AND AFTER THE PROCEDURE. Labs: PLEASE GO TO [facility] TO HAVE YOUR LAB WORK DRAWN ABOUT 1 WEEK BEFORE YOUR PROCEDURE. GO THE WEEK OF 03/10 - 03/17 THESE ARE NOT FASTING LABS. YOU MAY BE TOLD BY ANOTHER DEPARTMENT THAT YOU WILL RECEIVE A REMINDER CALL THE DAY BEFORE YOUR PROCEDURE, BUT YOU WILL NOT RECEIVE A REMINDER CALL. IF YOU HAVE ANY QUESTIONS REGARDING THE PROCEDURE CALL US AT : [phone] THANK YOU, JEYSON DE LUNA Ebay Reseller Scheduling The above instructions were given to patient verbally over the phone AND VIA MY CHART [facility] 03-06-2023 Nurse Note I called to schedule Ms. Martinez's heart cath. The number we have is her daughters. She said that her mom doesn't know anything about the cath yet. She asked that I give her a little time and call again in about an hour. [facility] 03-05-2023 History of Presen t illness Narrative Caffeine free for >24 hours. status n/a status n/a Pharmacologic nuclear stress procedure explained to patient. Risk/benefits of the procedure were reviewed and patient verbalized understanding. Medical nascar driver offered to patient prior to sensitive procedure and patient declined. Patient was administered a Lexiscan injection during the procedure, per the Physician's order. Patient was instructed prior to the test of the possible side effects of the medication. After the injection was administered, the patient did experience chest discomfort and stomach discomfort. In recovery the patient's symptoms subsided and vital signs returned to baseline. Patient tolerated procedure well. Patient was instructed to call 911 if they experience any chest pain, shortness of breath or other anginal equivalent more intense and/or frequent than before today's testing. Patient was ambulatory upon discharge from the clinic. documented in this encounter [facility] 03-05-2023 Hospital Discharg e instructions Corine Wallace RN - 03/05/2023 8:15 AM EST After the completion of your nuclear test at the [facility], you should be aware of the following information: Other than mild fatigue and muscle soreness, there are no residual symptoms or physiological effects associated with this nuclear study. If you should feel different than normal after the test, please contact the physician who scheduled the exam. If you think this is an emergency, either dial 911 or go to the nearest emergency room. Your testing was supervised by Dr. Cevallos today. A qualified and licensed [facility] dude ranch manager will interpret your study and a final report of the results will be forwarded to your physician within 24 hours. You will get the results of your test directly from the ordering physician or a physician on your care team. The technologist performing your exam will not give you final results. You have been administered a low dose of radioactive material that will be in your system for about three days.? This amount is approximately 5% of the limit that would require modification to your daily activities.? Because of this minimal activity, there are no restrictions with regards to exposure to other individuals, traveling, personal hygiene, or any other routine activity. If you are or , however, there are restrictions.? Please notify the technologist if this is the case. (Reference: [id number], Volume 9, Revision 2, Appendix U). If you have any questions or concerns regarding your exam, please call the [place] office at [phone], Friday through Friday, between the hours of 8:00 AM and 5:00 PM. For medical emergencies, please call 911 or go to your nearest emergency room. ? To Whom It May Concern: Our patient, Kiara, was seen at The [facility] on 03/05/2023 for a nuclear test of the heart. During the course of this myocardial perfusion imaging study, our patient received a radioactive isotope, technetium (Tc-99m). Tc-99m emits gamma radiation with an energy of 140 Walt and has a six hour half life. For this study, our patient received approximately 40 mCi of Tc-99m Cardiolite. The administered radioactivity will be below background levels within three days from the conclusion of the test. In the meantime, our patient may be detected as radioactive due to this study. If you have any further questions please contact our staff @ [phone] Friday through Friday, between the hours of 8:00 AM and 5:00 PM. Morgan Power, [facility] Technical Communicator and RSO [facility] [place] [address] documented in this encounter [facility] 02-21-2023 History of Presen t illness Narrative 82 year old female presents for evaluation of her voice and airway. She has a history of prior thyroidectomy and she is scheduled for left carotid endarterectomy in the near future. Her thyroid surgery was in 2008 due to benign nodules and goiter. She had some dysphonia following surgery that lasted up to 6 months. She feels her swallow was normal. She feels her voice is normal now. She denies any current dysphagia or choking concerns. She does have frequent throat clearing and has COPD. She denies any other neck or throat surgery. She has some dyspnea with activity and with URI. She denies any recent intubation. She quit tobacco 20 years ago. Procedure: Preoperative diagnosis: Vocal fold atrophy Postoperative diagnosis: Same Procedure: Flexible fiberoptic laryngoscopy Von Tobias MD Anesthesia: Topical lidocaine and Afrin Complications: None Condition is stable throughout exam Indications and consent: The patient presents to the clinic with history of thyroidectomy and need for airway evaluation prior to left CEA. Indirect laryngoscopy view was incomplete. Thus it was recommended that they undergo a flexible fiberoptic laryngoscopy. All of the risks, benefits, and potential complications were reviewed with the patient preoperatively and verbal informed consent was obtained. Procedure: The patient was seated upright in the clinic. Topical lidocaine and Afrin were applied to the nasal cavity. After adequate anesthesia had occurred, I then proceeded to pass the flexible telescope into the nasal cavity. The nasal cavity was patent without rhinorrhea or polyp. The nasopharynx was also patent without mass or lesion. The base of tongue was visualized and was normal. There were no signs of pooling of secretions in the piriform sinuses. The true vocal folds were mobile bilaterally but with mild atrophy. There were no signs of glottic or supraglottic mucosal lesion or mass. There was moderate interarytenoid pachydermia and post cricoid edema. The telescope was then slowly withdrawn and the patient tolerated the procedure throughout. 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 She is safe, from an upper airway standpoint, for her upcoming left carotid endarterectomy surgery. She will contact me with any future voice or swallow concerns. documented in this encounter [facility] 02-19-2023 Evaluation + Plan note Associated Problem(s): Pre-operative cardiovascular examination From a preoperative standpoint she will continue her current medical therapy. She will proceed with her transthoracic echocardiogram and her pharmacologic stress nuclear imaging study. Depending upon the findings she may or may not need further cardiac medical therapy and or evaluation/care prior to her noncardiac peripheral vascular surgery procedure. When it does come time for her carotid artery endarterectomy procedure she would need close monitoring of her cardiac rate, rhythm, and blood pressure during and following surgery. She should continue her medications with as minimum and interruption as possible during and following her surgery. An attempt should be made to avoid significant fluctuations in her volume status as well during and following surgery. She does note that she is at an increased risk for adverse cardiovascular events from noncardiac surgery based upon her cardiovascular history. Hopefully, if she is found to be stable from a cardiovascular standpoint with respect to no acute changes on her upcoming diagnostic studies, etc., then with appropriate perioperative monitoring and management hopefully her risk can be kept at a minimum. [facility] 02-19-2023 Miscellaneous Notes Associated Problem(s): Pre-operative cardiovascular examination From a preoperative standpoint she will continue her current medical therapy. She will proceed with her transthoracic echocardiogram and her pharmacologic stress nuclear imaging study. Depending upon the findings she may or may not need further cardiac medical therapy and or evaluation/care prior to her noncardiac peripheral vascular surgery procedure. When it does come time for her carotid artery endarterectomy procedure she would need close monitoring of her cardiac rate, rhythm, and blood pressure during and following surgery. She should continue her medications with as minimum and interruption as possible during and following her surgery. An attempt should be made to avoid significant fluctuations in her volume status as well during and following surgery. She does note that she is at an increased risk for adverse cardiovascular events from noncardiac surgery based upon her cardiovascular history. Hopefully, if she is found to be stable from a cardiovascular standpoint with respect to no acute changes on her upcoming diagnostic studies, etc., then with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 BILATERAL Tayla Carter R, PAC [address] [place] [address] Referral ID Status Reason Start Date Expiration Date V isits Requested Visits Authorized [id number] New Request 03/13/2022 04/07/2023 1 1 Specialty Diagnoses / Procedures Referred By Contac t Referred To Contact Diagnoses Bilateral carotid artery stenosis Procedures CT ANGIO BRAIN/NECK MI CT ANGIO,HEAD COMBO,INCL IMAGE PROCESS MI CT ANGIO,NECK COMBO,INCL IMAGE PROCESS Tayla Carter, PAC [address] [place] [address] Referral ID Status Reason Start Date Expiration Date V isits Requested Visits Authorized [id number] New Request 09/11/2022 10/06/2023 1 1 Specialty Diagnoses / Procedures Referred By Contac t Referred To Contact Diagnoses Asymptomatic bilateral carotid artery stenosis Procedures ECG Tayla Carter R, PAC [address] [place] [address] Referral ID Status Reason Start Date Expiration Date V isits Requested Visits Authorized [id number] New Request 10/30/2022 11/24/2023 1 1 Referral ID Status Reason Start Date Expiration Date Visits Re quested Visits Authorized [id number] Closed 09/11/2022 10/06/2023 1 1 Specialty Diagnoses / Procedures Referred By Contac t Referred To Contact Echocardiography Diagnoses 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 Procedures ECHOCARDIOGRAM MI ECHO HEART XTHORACIC,COMPLETE W DOPPLER Jacque Talbot MD [address] [facility] [address] 5[address] [address] [place] [address] Referral ID Status Reason Start Date Expiration Date Visits Re quested Visits Authorized [id number] Closed 01/31/2023 02/25/2024 1 1 Specialty Diagnoses / Procedures Referred By Contac t Referred To Contact Diagnoses 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 Procedures NUC MYOCARD PERF STRESS MIBI PHARM MI CHG MYOCARDIAL SPECT MULTIPLE STUDIES CHG MYOCARDIAL SPECT MULTIPLE STUDIES-T MI CARDIAC STRESS TST,INTERP/REPT ONLY MI CV STRS TST XERS&/OR RX CONT ECG W/O I&R Jacque Talbot MD [address] [facility] 5th Floor [address] [address] Referral ID Status Reason Start Date Expiration Date Visits Re quested Visits Authorized [id number] Closed 01/31/2023 02/25/2024 1 1 Specialty Diagnoses / Procedures Referred By Contac t Referred To Contact Procedures ECG Escobar Reaves MD [address] [place] [address] Referral ID Status Reason Start Date Expiration Date V isits Requested Visits Authorized [id number] New Request 03/19/2023 04/12/2024 1 1 Additional Source Comments INFORMATION SOURCE (unrecogn ized section and content) DATE CREATED AUTHOR AUTHOR'S ORGANIZ ATION 03/25/2023 [facility] Reason for Visit (unrecogniz ed section and content) Specialty Diagnoses / Procedures Referred By Contac t Referred To Contact Diagnoses Bilateral carotid artery stenosis Procedures VASC DUPLEX CAROTID BILATERAL VASC DUPLEX CAROTID BILATERAL Jacque Talbot MD [address] [facility] 5th Floor [address] [address] Referral ID Status Reason Start Date Expiration Date V isits Requested Visits Authorized [id number] New Request 09/05/2021 09/30/2022 1 1 Reason Comments New Patient Specialty Diagnoses / Procedures Referred By Contac t Referred To Contact Neurology Diagnoses Bilateral carotid artery stenosis Dizziness Jacque Talbot MD [address] [facility] 5th Floor [address] [address] Referral ID Status Reason Start Date Expiration Date V isits Requested Visits Authorized [id number] New Request 09/05/2021 09/30/2022 1 1 Specialty Diagnoses / Procedures Referred By Courtney michele Referred To Contact Diagnoses Loss of memory Procedures MRI BRAIN WITHOUT CONTRAST MI MRI BRAIN Melody Ren MD [address] [address] Referral ID Status Reason Start Date Expiration Date Visits Re quested Visits Authorized [id number] Closed 04/25/2022 05/20/2023 1 1 Specialty Diagnoses / Procedures Referred By Courtney t Referred To Contact Diagnoses Peripheral vertigo involving left ear Procedures MRI INTERNAL AUDITORY CANAL WITH AND WITHOUT CONTRAST MI MRI BRAIN COMBO Melody Ren MD [address] [address] Referral ID Status Reason Start Date Expiration Date Visits Re quested Visits Authorized [id number] Closed 06/07/2022 07/02/2023 1 1 Reason Comments Vestibular Schwanoma vestibular schwanno ma pt stated that she is a nodule behind her left ear and she gets dizzy some times Specialty Diagnoses / Procedures Referred By Courtney t Referred To Contact Diagnoses Bilateral carotid artery stenosis Procedures VASC DUPLEX CAROTID BILATERAL Tayla Carter, PAC [address] [place] [address] Referral ID Status Reason Start Date Expiration Date V isits Requested Visits Authorized [id number] New Request 03/13/2022 04/07/2023 1 1 Reason Comments Follow-up Reason Comments Follow-up Follow up after CTA Specialty Diagnoses / Procedures Referred By Courtney t Referred To Contact Diagnoses Bilateral carotid artery stenosis Procedures CT ANGIO BRAIN/NECK MI CT ANGIO,HEAD COMBO,INCL IMAGE PROCESS MI CT ANGIO,NECK COMBO,INCL IMAGE PROCESS Tayla Carter, PAC [address] [place] [address] Referral ID Status Reason Start Date Expiration Date Visits Re quested Visits Authorized [id number] Closed 09/11/2022 10/06/2023 1 1 Specialty Diagnoses / Procedures Referred By Courtney michele Referred To Contact Diagnoses Bilateral carotid artery stenosis Bilateral carotid artery stenosis [I65.23] Procedures MI PLACE CATH SUBSELECT ART,NECK PLACEMENT CATHETER SELECTIVE ARTERY INITIAL 2ND ORDER THORACIC/BRACHIOCEPHALIC Jacque Talbot MD [address] [facility] 5th Floor [address] [place] [address] [facility] [address] [place] [address] Referral ID Status Reason Start Date Expiration Date Visits Re quested Visits Authorized [id number] 1 1 Reason Comments Surgical Follow-up Follow-up appointmen t Reason Comments Heart Problem Needs cardiac cleara nce for carotid artery surgery. Chest tightness since last week occurring usually in the evening better with inhaler (made Dr Bowers pulmonary aware). Patient has SOB with exertion/stairs since 1 year ago. Specialty Diagnoses / Procedures Referred By Courtney michele Referred To Contact Echocardiography Diagnoses 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 Procedures ECHOCARDIOGRAM MI ECHO HEART XTHORACIC,COMPLETE W DOPPLER Jacque Talbot MD [address] [facility] 5th Floor [address] [address] [place] [address] Referral ID Status Reason Start Date Expiration Date Visits Re quested Visits Authorized [id number] Closed 01/31/2023 02/25/2024 1 1 Reason Comments Consult Patient here for voc al cord check. 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 Procedures NUC MYOCARD PERF STRESS MIBI PHARM MI CHG MYOCARDIAL SPECT MULTIPLE STUDIES CHG MYOCARDIAL SPECT MULTIPLE STUDIES-T MI CARDIAC STRESS TST,INTERP/REPT ONLY MI CV STRS TST XERS&/OR RX CONT ECG W/O I&R Jacque Talbot MD [address] [facility] 5th [address] [place] [address] Referral ID Status Reason Start Date Expiration Date Visits Re quested Visits Authorized [id number] Closed 01/31/2023 02/25/2024 1 1 Specialty Diagnoses / Procedures Referred By Contac t Referred To Contact Diagnoses Abnormal stress test Abnormal stress test [R94.39] Procedures MI CATH PLMT L HRT & ARTS W/NJX & ANGIO IMG S&I CORONARY ANGIOGRAM CORONARY BYPASS GRAFT ANGIOGRAM LEFT HEART CATHETERIZATION [facility] [address] [place] [address] [facility] [address] [place] [address] Referral ID Status Reason Start Date Expiration Date Visits Re quested Visits Authorized [id number] 1 1 Care Teams (unrecognized sec tion and content) Sill Worker 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 Specialty Start Date End Date Noe Rodriguez MD [address] [place] [address] PCP - Referring 1 Cardiovascular Disease 02/07/16 Naveen Osullivan MD [address] [place] [address] PCP - General Family Medicine 03/22/16 Noe Rodriguez MD [address] [facility] [address] [place] [address] Referring Provider Cardiovascular Disease 12/18/15 Larisa Jean, RN Registered Nurse 03/05/16 Sill Worker 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 Specialty Start Date End Date Noe Rodriguez MD [address] [place] [address] PCP - Referring 1 Cardiovascular Disease 02/07/16 Naveen Osullivan MD [address] [place] [address] PCP - General Family Medicine 03/22/16 Noe [facility] MD [facility] [address] [place] [address] Referring Provider Cardiovascular Disease 12/18/15 Larisa Jean, RN Registered Nurse 03/05/16 Sill Worker 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 Specialty Start Date End Date Noe Rodriguez MD [address] [place] [address] PCP - Referring 1 Cardiovascular Disease 02/07/16 Naveen Osullivan MD [address] [place] [address] PCP - General Family Medicine 03/22/16 Noe Rodriguez MD [address] [facility] [place] [address] Referring Provider Cardiovascular Disease 12/18/15 Larisa Jean, ANNAMARIE Registered Nurse 03/05/16 Sill Worker 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 Specialty Start Date End Date Noe Rodriguez MD [address] [place] [address] PCP - Referring 1 Cardiovascular Disease 02/07/16 Naveen Osullivan MD [address] [place] [address] PCP - General Family Medicine 03/22/16 Noe Rodriguez MD [address] [facility] [place] [address] Referring Provider Cardiovascular Disease 12/18/15 Larisa Jean, ANNAMARIE Registered Nurse 03/05/16 Sill Worker 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 Specialty Start Date End Date Noe Rodriguez MD [address] [place] [address] PCP - Referring 1 Cardiovascular Disease 02/07/16 Naveen Osullivan MD [address] [place] [address] PCP - General Family Medicine 03/22/16 Noe Rodriguez MD [address] [facility] [address] [place] [address] Referring Provider Cardiovascular Disease 12/18/15 Larisa Jean, RN Registered Nurse 03/05/16 Sill Worker 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 Specialty Start Date End Date Noe Rodriguez MD [address] [place] [address] PCP - Referring 1 Cardiovascular Disease 02/07/16 Naveen Osullivan MD [address] [place] [address] PCP - General Family Medicine 03/22/16 Noe Rodriguez MD [address] [facility] [address] [place] [address] Referring Provider Cardiovascular Disease 12/18/15 Larisa Jean, ANNAMARIE Registered Nurse 03/05/16 Sill Worker 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 Specialty Start Date End Date Noe Rodriguez MD [address] [place] [address] PCP - Referring 1 Cardiovascular Disease 02/07/16 Naveen Osullivan MD [address] [place] [facility] [place] [address] PCP - General Family Medicine 03/22/16 Noe Rodriguez MD [address] [facility] [place] [address] Referring Provider Cardiovascular Disease 12/18/15 Larisa Jean, RN Registered Nurse 03/05/16 Sill Worker 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 Specialty Start Date End Date Noe Rodriguez MD [address] [place] [address] PCP - Referring 1 Cardiovascular Disease 02/07/16 Naveen Osullivan MD [address] [place] [address] PCP - General Family Medicine 03/22/16 Noe Rodriguez MD [address] [facility] [address] [place] [address] Referring Provider Cardiovascular Disease 12/18/15 Larisa Jean, RN Registered Nurse 03/05/16 Sill Worker 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 Specialty Start Date End Date Noe Rodriguez MD [address] [place] [address] PCP - Referring 1 Cardiovascular Disease 02/07/16 Naveen Osullivan MD [address] [place] [address] PCP - General Family Medicine 03/22/16 Noe Rodriguez MD [address] [facility] [address] [place] [address] Referring Provider Cardiovascular Disease 12/18/15 Larisa Jean, RN Registered Nurse 03/05/16 Sill Worker 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 Specialty Start Date End Date Noe Rodriguez MD [address] [place] [address] PCP - Referring 1 Cardiovascular Disease 02/07/16 Naveen Osullivan MD [address] [place] [address] PCP - General Family Medicine 03/22/16 Noe Rodriguez MD [address] [facility] [address] [place] [address] Referring Provider Cardiovascular Disease 12/18/15 Larisa Jean, RN Registered Nurse 03/05/16 Sill Worker 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 Specialty Start Date End Date Noe Rodriguez MD [address] [place] [address] PCP - Referring 1 Cardiovascular Disease 02/07/16 Naveen Osullivan MD [address] [facility] [place] [facility] [place] [address] PCP - General Family Medicine 03/22/16 Noe Rodriguez MD [address] [facility] [address] [place] [address] Referring Provider Cardiovascular Disease 12/18/15 Larisa Jean RN Registered Nurse 03/05/16 Sill Worker 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 Specialty Start Date End Date Noe Rodriguez MD [address] [place] [address] PCP - Referring 1 Cardiovascular Disease 02/07/16 Naveen Osullivan MD [address] [facility] [place] [address] PCP - General Family Medicine 03/22/16 Noe Rodriguez MD [address] [facility] [place] [address] Referring Provider Cardiovascular Disease 12/18/15 Larisa Jean, ANNAMARIE Registered Nurse 03/05/16 Sill Worker 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 Specialty Start Date End Date Noe Rodriguez MD [address] [place] [address] PCP - Referring 1 Cardiovascular Disease 02/07/16 Naveen Osullivan MD [address] [place] [address] PCP - General Family Medicine 03/22/16 Noe Rodriguez MD [address] [facility] [address] [place] [address] Referring Provider Cardiovascular Disease 12/18/15 Larisa Jean, RN Registered Nurse 03/05/16 Sill Worker 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 Specialty Start Date End Date Noe Rodriguez MD [address] [place] [address] PCP - Referring 1 Cardiovascular Disease 02/07/16 Naveen Osullivan MD [address] [place] [address] PCP - General Family Medicine 03/22/16 Noe Rodriguez MD [address] [facility] [address] [place] [address] Referring Provider Cardiovascular Disease 12/18/15 Larisa Jean, RN Registered Nurse 03/05/16 Sill Worker 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 Specialty Start Date End Date Noe Rodriguez MD [address] [place] [address] PCP - Referring 1 Cardiovascular Disease 02/07/16 Naveen Osullivan MD [address] [place] [address] PCP - General Family Medicine 03/22/16 Noe Rodriguez MD [address] [facility] [address] [place] [address] Referring Provider Cardiovascular Disease 12/18/15 Larisa Jean, RN Registered Nurse 03/05/16 Sill Worker 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 Specialty Start Date End Date Noe Rodriguez MD [address] [facility] [address] [place] [address] PCP - Referring 1 Cardiovascular Disease 02/07/16 Naveen Osullivan MD [address] [place] [address] PCP - General Family Medicine 03/22/16 Noe Rodriguez MD [address] [facility] [address] [place] [address] Referring Provider Cardiovascular Disease 12/18/15 Larisa Jean, ANNAMARIE Registered Nurse 03/05/16 03/05/23 Sill Worker 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 Specialty Start Date End Date Noe Rodriguez MD [address] [facility] [address] [place] [address] PCP - Referring 1 Cardiovascular Disease 02/07/16 Naveen Osullivan MD [address] [place] [address] PCP - General Family Medicine 03/22/16 Noe Rodriguez MD [address] [facility] [address] [place] [address] Referring Provider Cardiovascular Disease 12/18/15 Scheduled Active and Recently Administ ered Medications (unrecognized section and content) PRN Medication Order 01/19/2023 01/20/2023 01/21/2023 Acetaminophen (TYLENOL) tablet 650 mg 650 mg, Oral, EVERY 4 HOURS NEEDED, Starting on Fri01/21/23 at 0854, Until Fri01/27/23 at 1437, Mild Pain, Maximum dose of acetaminophen is 4000 mg from all sources in 24 hours., Post-op/Post-Proc heparin 1000 UNIT/ML 10,000 Units in Sodium chloride 0.9 % 1,000 mL irrigation solution (CANCELED) NEEDED, Starting on Fri01/21/23 at 0747, Until Fri01/21/23 at 0845, Intra-op/Intra-Proc 0747 (Given - Provid er: Jacque Talbot MD - Comment: Given to sterile field) iodixanol (VISIPAQUE) injection 320 mg/mL for [facility] IR (CANCELED) NEEDED, Starting on Fri01/21/23 at 0823, Until Fri01/21/23 at 0845, Intra-op/Intra-Proc 08 (Given - Provid er: Jacque Talobt MD) Lidocaine (XYLOCAINE) 10 mg/mL injection (CANCELED) NEEDED, Starting on Fri01/21/23 at 0747, Until Fri01/21/23 at 0845, Intra-op/Intra-Proc 07 (Given - Provid er: Jacque Talbot MD - Comment: Given to sterile field) Ondansetron 4mg/2ml (ZOFRAN) injection 4 mg 4 mg, Intravenous, EVERY 4 HOURS NEEDED, Starting on Fri01/21/23 at 0854, Until Fri01/27/23 at 1437, Nausea / Vomiting, 1st Line Nausea / Vomiting, Post-op/Post-Proc oxyCODONE-acetaminophen (PERCOCET) 5-325 MG per tablet 1 tablet(Linked Group 1) 1 tablet, Oral, EVERY 4 HOURS NEEDED, Starting on Fri01/21/23 at 0854, Until Fri01/27/23 at 1437, Moderate Pain, Use as initial dose. Higher dose may be administered if lower dose was previously documented as ineffective and did not result in adverse effects (RR<10, decrease in level of consciousness)., Post-op/Post-Proc oxyCODONE-acetaminophen (PERCOCET) 5-325 MG per tablet 2 tablet(Linked Group 1) 2 tablet, Oral, EVERY 4 HOURS NEEDED, Starting on Fri01/21/23 at 0854, Until Fri01/27/23 at 1437, Moderate Pain, Higher dose may be administered if lower dose was previously documented as ineffective and did not result in adverse effects (RR<10, decrease in level of consciousness). Decrease back to lower dose if patient has adverse effects, or no PRN used in previous 12 hours., Post-op/Post-Proc Promethazine (PHENERGAN) injection 12.5 mg 12.5 mg, Intravenous, EVERY 6 HOURS NEEDED, Starting on Fri01/21/23 at 0854, Until Fri01/27/23 at 1437, Nausea / Vomiting, 2nd Line Nausea / Vomiting, Extravasation Risk. If given via IV route: dilute dose with 10mL normal saline and inject through a running IV or line over 5 minutes OR if no active IV or line is saline-dwelled dilute dose with 20mL normal saline and administer over 5 minutes. AVOID Intra-arterial administration; necrosis & gangrene have resulted. Hand, wrist or foot veins SHOULD BE AVOIDED., Post-op/Post-Proc Linked Groups Order Group 1: oxyCODONE-acetaminophen (PERCOCET) 5-325 MG per tablet 1 tabletJump to med 1 tablet, Oral, EVERY 4 HOURS NEEDED, Starting on Fri01/21/23 at 0854, Until Fri01/27/23 at 1437, Moderate Pain
Use as initial dose. Higher dose may be administered if lower dose was previously documented as ineffective and did not result in adverse effects (RR<10, decrease in level of consciousness).
Post-op/Post-Proc Or oxyCODONE-acetaminophen (PERCOCET) 5-325 MG per tablet 2 tabletJump to med 2 tablet, Oral, EVERY 4 HOURS NEEDED, Starting on Fri01/21/23 at 0854, Until Fri01/27/23 at 1437, Moderate Pain
Higher dose may be administered if lower dose was previously documented as ineffective and did not result in adverse effects (RR<10, decrease in level of consciousness). Decrease back to lower dose if patient has adverse effects, or no PRN used in previous 12 hours.
Post-op/Post-Proc Scheduled Medication Order 03/17/2023 03/18/2023 03/19/2023 aspirin chewable tablet 324 mg (COMPLETED) 324 mg, Oral, ONCE, 1 dose, On Fri03/19/23 at 0615, Patient to receive at least 30 minutes prior to procedure. Instruct patient to chew and not swallow., Pre-op/Pre-Proc 0644 (Given - Provid er: Hayley Melendez RN) Continuous Medication Order 03/17/2023 03/18/2023 03/19/2023 Sodium chloride 0.9% IV solution Intravenous, at 100 mL/hr, CONTINUOUS, Starting on Fri03/19/23 at 0615, Until Fri03/19/23 at 1428, Pre-op/Pre-Proc 0645 ($$New Bag$$ - Provider: Hayley Melendez RN)0947 (Stopped - Provider: Hayley Melendez RN) Sodium chloride 0.9% IV solution 75 mL/hr, Intravenous, CONTINUOUS, Starting on Fri03/19/23 at 0930, Until Fri03/19/23 at 1129, Post-op/Post-Proc 0947 (Rate/Dose Alatorre ge - Provider: Hayley Melendez RN)1124 (Stopped - Provider: Hayley Melendez RN) PRN Medication Order 03/17/2023 03/18/2023 03/19/2023 Acetaminophen (TYLENOL) tablet 325 mg 325 mg, Oral, EVERY 6 HOURS NEEDED, Starting on Fri03/19/23 at 0925, Until Fri03/19/23 at 1428, Mild Pain, Maximum dose of acetaminophen is 4000 mg from all sources in 24 hours., Post-op/Post-Proc fentaNYL (SUBLIMAZE) injection (CANCELED) Administer over 2 Minutes, NEEDED, Starting on Fri03/19/23 at 0829, Until Fri03/19/23 at 0933, Intra-op/Intra-Proc 0829 (Given - Provid er: Patty Gallegos RN) Heparin injection (CANCELED) NEEDED, Starting on Fri03/19/23 at 0843, Until Fri03/19/23 at 0933, Intra-op/Intra-Proc 0843 (Given - Provid er: Vandana Knox RN) iodixanol (VISIPAQUE) injection 320 mg/mL for [facility] IR (CANCELED) NEEDED, Starting on Fri03/19/23 at 0923, Until Fri03/19/23 at 0933, Intra-op/Intra-Proc 0923 (Given - Provid er: Dragan Alcaraz MD) Lidocaine 2 % injection (CANCELED) NEEDED, Starting on Fri03/19/23 at 0834, Until Fri03/19/23 at 0933, Intra-op/Intra-Proc 0834 (Given - Provid er: Tigre Mortensen DO) midazolam (VERSED) injection (CANCELED) NEEDED, Starting on Fri03/19/23 at 0829, Until Fri03/19/23 at 0933, Intra-op/Intra-Proc 0829 (Given - Provid er: Patty Gallegos RN) nitroGLYCERIN in D5W 200mcg/5mL syringe SOLN (CANCELED) NEEDED, Starting on Fri03/19/23 at 0837, Until Fri03/19/23 at 0933, Intra-op/Intra-Proc 0837 (Given - Provid er: Tigre Mortensen DO) verapamil (ISOPTIN) injection (CANCELED) NEEDED, Starting on Fri03/19/23 at 0837, Until Fri03/19/23 at 0933, Intra-op/Intra-Proc 0837 (Given - Provid er: Tigre Mortensen DO) FOR RECORDS PERTAINING TO PATIENTS WHO ARE OR HAVE BEEN ENROLLED IN A CHEMICAL DEPENDENCY/SUBSTANCEABUSE PROGRAM, SOME INFORMATION MAY BE OMITTED. This clinical summary was aggregated from multiple sources. Caution should be exercised in using it in the provision of clinical care. This summary normalizes information from multiple sources, and as a consequence, information in this document may materially change the coding, format and clinical context of patient data. In addition, data may be omitted in some cases. CLINICAL DECISIONS SHOULD BE BASED ON THE PRIMARY CLINICAL RECORDS. [employer] [facility]. provides no warranty or guarantee of the accuracy or completeness of information in this document.
== END | disposition home or self-care (01) ==
LOC: RAD 10:53
PROVIDERS: PCP Family Medicine; Referring Provider Nurse Practitioner Acute Care; Visit Provider Nurse Practitioner Acute Care
DX: J44.9 Chronic obstructive pulmonary disease, unspecified (principal)
CPT/HCPCS: 71046

== ENCOUNTER → 2023-04-09 | Outpatient (CLI) | payer MEDICARE, SELFPAY ==
[2023-04-09 11:47] LABS: Anion Gap 5 (5-15); BUN 28 mg/dL (7-18); BUN/Creat Ratio 29.4 RATIO (10-20); Calcium,Total 9.4 mg/dL (8.5-10.1); Chloride 103 mmol/L (98-107); Creatinine, Serum 0.95 mg/dL (0.55-1.02); EST Glomerular Filtration Rate 60 mL/min (>60); Est Glom Filt Rate - Afr Amer 72 mL/min (>60); Glucose 107 mg/dL (74-106); Potassium 3.5 mmol/L (3.5-5.1); Sodium Level 139 mmol/L (136-145)
--- OUTSIDE RECORDS SUMMARY | 2023-04-09 11:56 | XMS RPT_ITS | CCD ---
Author Name Unknown Address [address] [place] [address] Organization [facility] Care Team Providers Care Journeyman Level Acoustic Analyst Name Role Phone Noe Rodriguez MD Unavailable [phone] Noe Rodriguez MD Unavailable [phone] Miranda DE LUNA, Larisa Unavailable Unavailable Naveen Osullivan MD Primary Care Provider Noe Rodriguez MD Unavailable [phone] Noe Rodriguez MD Unavailable [phone] Naveen Osullivan MD A Primary Care Provider [phone] OSULLIVAN, NAVEEN A Primary Care Unavailable OSULLIVAN, [...] R Referring Unavailable TAYLA CARTER Attending Unavailable JACQUE TALBOT Attending Unavailable NAVEEN OSULLIVAN A Primary Care Unavailable JACQUE TALBOT Admitting Unavailable MELODY REN Attending Unavailable NAVEEN OSULLIVAN A Primary Care Unavailable JACQUE TALBOT Referring Unavailable JUAN JOSE HA Attending JUAN JOSE Perez Admitting NAVEEN Deluca Primary Care Unavailable Allergies Allergy Classification Reported Allergen(s) Allergy Type Date of Onset Reaction(s) Facility (20 sources) Lanolin Drug Allergy 09-29-[address] [facility] (20 sources) nickel sulfate Drug Allergy 12-09-[address] [facility] (20 sources) *Adhesive Tape Propensity to adverse reactions 03-22-2016 [facility] Medications Current Medications Medication Drug Class(es) Dates [...] Coronary atherosclerosis; Translations: [Atherosclerotic heart disease of [place] coronary artery without angina pectoris] Onset: 5 [...] mm[Hg] Juan Jose Ha MD Work Phone: [facility] 03-19-2023 12:15-0500 Heart rate 76 /min Juan Jose Ha MD Work Phone: [facility] 03-19-2023 12:15-0500 Respiratory rate 20 /min Juan Jose Ha MD Work Phone: [facility] 03-19-2023 12:15-0500 SaO2% (BldA) [Mass fraction] 96 % Juan Jose Ha MD Work Phone: [facility] 03-19-2023 12:15-0500 Systolic blood pressure 128 mm[Hg] Juan Jose Ha MD Work Phone: [facility] 03-19-2023 06:39-0500 Body height 149.9 cm Juan Jose Ha MD Work Phone: [facility] 03-19-2023 06:39-0500 Body mass index (BMI) [Ratio] 34.91 kg/m2 Juan Jose Ha MD Work Phone: [facility] 03-19-2023 06:39-0500 Body temperature 98.2 [degF] Juan Jose Ha MD Work Phone: [facility] 03-19-2023 06:39-0500 Body weight 78.4 kg Juan Jose Ha MD Work Phone: [facility] 03-05-2023 09:00-0500 Body height 149.9 cm Tayla Rogerjko PAC Work Phone: [facility] 03-05-2023 09:00-0500 Body mass index (BMI) [Ratio] 35.14 kg/m2 Tayla Zahorujko PAC Work Phone: [facility] 03-05-2023 09:00-0500 Body weight 78.93 kg Tayla Zahorujko PAC Work Phone: [facility] 03-05-2023 09:00-0500 Diastolic blood pressure 74 mm[Hg] Tayla Zahorujko PAC Work Phone: [facility] 03-05-2023 09:00-0500 Heart rate 80 /min Tayla Zahorujko PAC Work Phone: [facility] 03-05-2023 09:00-0500 Systolic blood pressure 126 mm[Hg] Tayla Zahorujko PAC Work Phone: [facility] 02-21-2023 15:21-0500 Body height 149.9 cm Von Tobias MD Work Phone: [facility] 02-21-2023 15:21-0500 Body mass index (BMI) [Ratio] 35.14 kg/m2 Von Tobias MD Work Phone: [facility] 02-21-2023 15:21-0500 Body weight 78.93 kg Von Tobias MD Work Phone: [facility] 02-21-2023 15:21-0500 Respiratory rate 14 /min Von Tobias MD Work Phone: [facility] 02-19-2023 11:55-0500 Body height 149.9 cm Tayla Zahorujko PAC Work Phone: [facility] 02-19-2023 11:55-0500 Body mass index (BMI) [Ratio] 35.2 kg/m2 Tayla Zahorujko PAC Work Phone: [facility] 02-19-2023 11:55-0500 Body weight 79.1 kg Tayla Zahorujko PAC Work Phone: [facility] 02-19-2023 11:55-0500 Diastolic blood pressure 78 mm[Hg] Tayla Zahorujko PAC Work Phone: [facility] 02-19-2023 11:55-0500 Systolic blood pressure 146 mm[Hg] Tayla Zahorujko PAC Work Phone: [facility] 02-19-2023 10:26-0500 Body height 149.9 cm Charbel Arteaga MD Work Phone: [facility] 02-19-2023 10:26-0500 Body mass index (BMI) [Ratio] 35.22 kg/m2 Charbel Arteaga MD Work Phone: [facility] 02-19-2023 10:26-0500 Body weight 79.11 kg Charbel Arteaga MD Work Phone: 5(736)717-154735 [place] [address] 02-19-2023 10:26-0500 Diastolic blood pressure 78 mm[Hg] Charbel Arteaga MD Work Phone: [facility] 02-19-2023 10:26-0500 Heart rate 78 /min Charbel Arteaga MD Work Phone: [facility] 02-19-2023 10:26-0500 Systolic blood pressure 146 mm[Hg] Charbel Arteaga MD Work Phone: [facility] 02-03-2023 09:31-0400 Body height 149.9 cm Jacque Talbot MD Work Phone: [facility] 02-03-2023 09:31-0400 Body mass index (BMI) [Ratio] 35.39 kg/m2 Jacque Talbot MD Work Phone: [facility] 02-03-2023 09:31-0400 Body weight 79.47 kg Jacque Talbot MD Work Phone: [facility] 02-03-2023 09:31-0400 Diastolic blood pressure 72 mm[Hg] Jacque Talbot MD Work Phone: [facility] 02-03-2023 09:31-0400 Heart rate 70 /min Jacque Talbot MD Work Phone: [facility] 02-03-2023 09:31-0400 Systolic blood pressure 141 mm[Hg] Jacque Talbot MD Work Phone: 4(382)604-277079 [place] [address] 01-21-2023 13:10-0400 Heart rate 67 /min Jacque Talbot MD Work Phone: 6(503)487-212979 [place] [address] 01-21-2023 13:10-0400 Respiratory rate 23 /min Jacque Talbot MD Work Phone: 0(301)616-789379 [place] [address] 01-21-2023 13:10-0400 SaO2% (BldA) [Mass fraction] 95 % Jacque Talbot MD Work Phone: 2(817)885-459079 [place] [address] 01-21-2023 13:00-0400 Diastolic blood pressure 70 mm[Hg] Jacque Talbot MD Work Phone: 2(490)869-288679 [place] [address] 01-21-2023 13:00-0400 Systolic blood pressure 151 mm[Hg] Jacque Talbot MD Work Phone: 3(976)254-608179 [place] [address] 01-21-2023 08:45-0400 Body temperature 97.9 [degF] Jacque Talbot MD Work Phone: 6(198)339-399679 [place] [address] 10-30-2022 08:36-0400 Body height 149.9 cm Jacque Talbot MD Work Phone: 4(810)516-443579 [place] [address] 10-30-2022 08:36-0400 Body mass index (BMI) [Ratio] 36.07 kg/m2 Jacque Talbot MD Work Phone: 1(005)365-033479 [place] [address] 10-30-2022 08:36-0400 Body weight 81.01 kg Jacque Talbot MD Work Phone: 3(227)038-787079 [place] [address] 10-30-2022 08:36-0400 Diastolic blood pressure 80 mm[Hg] Jacque Talbot MD Work Phone: 3(652)456-235679 [place] [address] 10-30-2022 08:36-0400 Heart rate 73 /min Jacque Talbot MD Work Phone: 8(945)925-326379 [place] [address] 10-30-2022 08:36-0400 Respiratory rate 20 /min Jacque Talbot MD Work Phone: 2(845)787-184879 [place] [address] 10-30-2022 08:36-0400 SaO2% (BldA) [Mass fraction] 97 % Jacque Talbot MD Work Phone: 6(078)679-103479 [place] [address] 10-30-2022 08:36-0400 Systolic blood pressure 146 mm[Hg] Jacque Talbot MD Work Phone: 2(934)966-796879 [place] [address] 10-30-2022 07:54-0400 Body mass index (BMI) [Ratio] 34.18 kg/m2 Tayla Zahorujko PAC Work Phone: 9(698)867-416179 [place] [address] 10-30-2022 07:54-0400 Body weight 79.38 kg Tayla Zahorujko PAC Work Phone: 3(361)600-605879 [place] [address] 10-30-2022 07:54-0400 Diastolic blood pressure 72 mm[Hg] Tayla Zahorujko PAC Work Phone: 8(859)556-692579 [place] [address] 10-30-2022 07:54-0400 Heart rate 63 /min Tayla Zahorujko PAC Work Phone: 7(927)507-092979 [place] [address] 10-30-2022 07:54-0400 Systolic blood pressure 158 mm[Hg] Tayla Zahorujko PAC Work Phone: 6(784)510-860479 [place] [address] 09-11-2022 12:03-0400 Body height 152.4 cm Jacque Talbot MD Work Phone: 7(405)807-261579 [place] [address] 09-11-2022 12:03-0400 Body mass index (BMI) [Ratio] 34.43 kg/m2 Jacque Talbot MD Work Phone: 3(366)257-966579 [place] [address] 09-11-2022 12:03-0400 Body temperature 97.9 [degF] Jacque Talbot MD Work Phone: 7(217)439-565279 [place] [address] 09-11-2022 12:03-0400 Body weight 79.97 kg Jacque Talbot MD Work Phone: [facility] 09-11-2022 12:03-0400 Diastolic blood pressure 92 mm[Hg] Jacque Talbot MD Work Phone: [facility] 09-11-2022 12:03-0400 Heart rate 103 /min Jacque Talbot MD Work Phone: [facility] 09-11-2022 12:03-0400 SaO2% (BldA) [Mass fraction] 95 % Jacque Talbot MD Work Phone: [facility] 09-11-2022 12:03-0400 Systolic blood pressure 167 mm[Hg] Jacque Talbot MD Work Phone: [facility] 08-20-2022 14:44-0400 Body height 152.4 cm Alistair Stevenson MD Work Phone: [facility] 08-20-2022 14:44-0400 Body mass index (BMI) [Ratio] 34.18 kg/m2 Alistair Stevenson MD Work Phone: [facility] 08-20-2022 14:44-0400 Body weight 79.38 kg Alistair Stevenson MD Work Phone: [facility] 08-20-2022 14:44-0400 Heart rate 82 /min Alistair Stevenson MD Work Phone: [facility] 08-20-2022 14:44-0400 SaO2% (BldA) [Mass fraction] 96 % Alistair Stevenson MD Work Phone: [facility] 07-01-2022 17:49-0400 Diastolic blood pressure 79 mm[Hg] Melody Ren MD Work Phone: [facility] 07-01-2022 17:49-0400 Heart rate 97 /min Melody Ren MD Work Phone: [facility] 07-01-2022 17:49-0400 Systolic blood pressure 178 mm[Hg] Melody Ren MD Work Phone: 5(385)238-765111 [place] [address] 07-01-2022 17:47-0400 Body height 152.4 cm Melody Ren MD Work Phone: 5(353)565-657811 [place] [address] 06-05-2022 15:01-0500 Body height 152.4 cm Melody Ren MD Work Phone: 6(598)695-977211 [place] [address] 06-05-2022 15:01-0500 Diastolic blood pressure 79 mm[Hg] Melody Ren MD Work Phone: 9(806)453-397611 [place] [address] 06-05-2022 15:01-0500 Heart rate 86 /min Melody Ren MD Work Phone: 0(858)416-551711 [place] [address] 06-05-2022 15:01-0500 Systolic blood pressure 180 mm[Hg] Melody Ren MD Work Phone: 3(757)610-972111 [place] [address] 04-25-2022 13:12-0500 Body height 152.4 cm Melody Ren MD Work Phone: 9(796)424-744411 [place] [address] 04-25-2022 13:12-0500 Body mass index (BMI) [Ratio] 34.65 kg/m2 Melody Ren MD Work Phone: 3(257)857-598611 [place] [address] 04-25-2022 13:12-0500 Body weight 80.47 kg Melody Ren MD Work Phone: 4(267)833-517411 [place] [address] 04-25-2022 13:12-0500 Diastolic blood pressure 72 mm[Hg] Melody Ren MD Work Phone: 8(303)652-139411 [place] [address] 04-25-2022 13:12-0500 Heart rate 80 /min Melody Ren MD Work Phone: 2(771)286-941711 [place] [address] 04-25-2022 13:12-0500 Systolic blood pressure 138 mm[Hg] Melody Ren MD Work Phone: 6(707)242-587511 [place] [address] 09-05-2021 14:41-0400 Body height 152.4 cm Jacque Talbot MD Work Phone: [facility] 09-05-2021 14:41-0400 Body mass index (BMI) [Ratio] 32.22 kg/m2 Jacque Talbot MD Work Phone: [facility] 09-05-2021 14:41-0400 Body weight 74.84 kg Jacque Talbot MD Work Phone: [facility] 09-05-2021 14:41-0400 Diastolic blood pressure 71 mm[Hg] Jacque Talbot MD Work Phone: [facility] 09-05-2021 14:41-0400 Heart rate 79 /min Jacque Talbot MD Work Phone: [facility] 09-05-2021 14:41-0400 SaO2% (BldA) [Mass fraction] 98 % Jacque Talbot MD Work Phone: [facility] 09-05-2021 14:41-0400 Systolic blood pressure 126 mm[Hg] Jacque Talbot MD Work Phone: [facility] Encounters Encounter Date Encounter Type Care Provider Facility Start: 03-19-2023 End: 03-19-2023 ambulatory JUAN JOSE HA Facility:[facility] Start: 03-19-2023 End: 03-19-2023 Subsequent hospital visit [...] Detail Author Start: 08-21-2031 Tetanus vaccination TETANUS [facility] Start: 10-31-2023 Potassium [Moles/volume] in Serum or Plasma POTASSIUM [facility] Start: 05-28-2023 End: 05-28-2023 Patient encounter procedure 05/28/2023 10:00 AM EST [facility] [address] [address] Charbel Arteaga MD [address] [place] [address] [facility] Start: 04-25-2023 Thyroid stimulating hormone measurement TSH [facility] Start: 03-05-2023 End: 03-05-2023 Patient encounter procedure 03/05/2023 8:15 AM EST Appointment [facility] [address] [place] [address] [id number] Tayla Carter, PAC [address] [place] [phone] [facility] Start: 03-05-2023 Subsequent hospital visit by physician 03/05/2023 8:15 AM EST Hospital Encounter [facility] [address] [place] [address] [phone] Tayla Carter, PAC [address] [place] [phone] [facility] Start: 02-21-2023 End: 02-21-2023 Patient encounter procedure 02/21/2023 3:15 PM EST Office Visit [facility] [place] [address] [facility] [address] [place] [address] Von Tobias MD [address] [facility] [address] [place] [address] [facility] Start: 02-20-2023 End: 08-21-2023 MR Internal auditory canal WO and W contrast IV MRI INTERNAL AUDITORY CANAL WITH AND WITHOUT CONTRAST Imaging Routine Vestibular schwannoma Expected: 02/20/2023 (Approximate), Expires: 08/21/2023 [facility] Immunizations Immunization Date Immunization Notes Care Provider Fa cility 02-01-2022 Influenza Vaccine, Quadrivalent, Adjuvanted Melody Ren MD Work Phone: [facility] 02-01-2022 influenza virus vacc ine, unspecified formulation Jacque Talbot MD Work Phone: [facility] 08-20-2021 COVID-19 vaccine, Michael Hodges, 50 mcg/0.25 mL booster Melody Ren MD Work Phone: [facility] 08-20-2021 tetanus toxoid, redu jens diphtheria toxoid, and acellular pertussis vaccine, adsorbed Melody Ren MD Work Phone: [facility] 03-02-2021 COVID-19 vaccine, Michael Hodges, 50 mcg/0.25 mL booster Melody Ren MD Work Phone: [facility] 02-19-2021 Influenza Vaccine, Quadrivalent, Adjuvanted Melody Ren MD Work Phone: [facility] 06-28-2020 hepatitis A vaccine, adult dosage Melody Ren MD Work Phone: [facility] 05-26-2020 COVID-19 vaccine, Michael Hodges, 100 mcg/0.5 mL Melody Ren MD Work Phone: [facility] 05-08-2020 COVID-19 vaccine, Michael Hodges, 100 mcg/0.5 mL Melody Ren MD Work Phone: 3(559)157-957750 [address] 04-28-2020 COVID-19 vaccine, Michael Hodges, 100 mcg/0.5 mL Melody Ren MD Work Phone: [facility] 04-07-2020 COVID-19 vaccine, Michael Hodges, 100 mcg/0.5 mL Melody Ren MD Work Phone: 1(713)161-759650 [address] 02-21-2020 zoster vaccine recombinant Melody Ren MD Work Phone: [facility] 10-29-2019 hepatitis A vaccine, adult dosage Melody Ren MD Work Phone: 8(672)508-560485 [place] [address] 10-29-2019 zoster vaccine recombinant Melody Ren MD Work Phone: [facility] 01-07-2018 influenza, injectabl e, quadrivalent, contains preservative Melody Ren MD Work Phone: [facility] 01-06-2018 influenza, high dose seasonal, preservative-free Melody Ren MD Work Phone: [facility] 01-03-2017 influenza, injectabl e, quadrivalent, contains preservative Melody Ren MD Work Phone: [facility] 01-06-2016 influenza virus vacc ine, unspecified formulation Jacque Talbot MD Work Phone: [facility] 01-04-2016 influenza, seasonal, injectable Melody Ren MD Work Phone: [facility] 02-05-2014 pneumococcal conjuga te vaccine, 13 shelley Ren MD Work Phone: [facility] 08-05-2005 pneumococcal polysaccharide vaccine, 23 shelley Ren MD Work Phone: [facility] Payers Date Payer Category Payer Medicare MEDICARE [employer] H[employer] PPO MEDICARE [employer] HMO PPO [id number] 2017-Present [address] [address] [place] [address] [id number] 2017 Medicare [id number] 1940 Unknown [id number] [id number] 1939 Unknown [id number] [id number] 1939 Unknown [id number] [id number] 1939 Unknown [id number] [id number] 1939 Unknown [id number] [id number] 1939 Unknown [id number] [id number] 1939 Unknown [id number] [id number] 1939 Unknown [id number] [id number] 1939 Unknown [id number] [id number] 1939 Unknown [id number] [id number] 1939 Unknown [id number] [id number] 1939 Unknown [id number] [id number] 1939 Unknown [id number] [id number] 1939 Unknown [id number] [id number] 1939 Unknown [id number] [id number] 1939 Unknown [id number] [id number] 1939 Unknown [id number] [id number] 1939 Unknown [id number] [id number] 1939 Unknown [id number] [id number] 1939 Unknown [id number] [id number] Social History Date Type Detail Facility Start: 01-15-2016 End: 02-19-2023 Tobacco smoking status NHIS Ex-smoker [facility] Start: 1956 End: 04-07-2003 History of tobacco use Current smoker [facility] Start: 1955 End: 04-07-2003 History of tobacco use Cigarette Smoker [facility] Start: 01-15-2016 End: 03-19-2023 Cigarettes smoked current (pack per day) - Reported 1 [facility] Start: 01-15-2016 End: 02-19-2023 Tobacco use and exposure Smokeless tobacco non-user [facility] Start: 09-05-2021 End: 03-19-2023 Alcohol intake Current drinker of alcohol (finding) [facility] Start: 12-09-2008 History SDOH Alcohol Comment occasionally [facility] Start: 02-09-2015 End: 04-25-2022 Tobacco Comment quit 11 years ago [facility] Start: 1940 Sex Assigned At Not on file [facility] Start: 03-03-2022 End: 04-25-2022 Exposure to SARS-CoV-2 (event) Unable to assess [facility] Start: 04-25-2022 Alcohol Comment Wine with dinn er once in awhile [facility] Start: 05-26-2022 End: 06-05-2022 Exposure to SARS-CoV-2 (event) Not sure [facility] Start: 09-11-2022 End: 03-19-2023 Tobacco use panel [facility] Gender identity Identifies as fe male gender (finding) [facility] Medical Equipment Procedure Code Equipment Code Equipment Origin al Text Equipment Identifier Dates Lead Ana Starr 58cm - [id number] Start: 02-01-2016 Valve Tavr Evolu t Us 26 - [id number] Start: 01-31-2016 Clinical Notes 09-05-2021 to [...] at time of discharge. Hayley Melendez RN [facility] 03-19-2023 Miscellaneous Notes After Visit Summary reviewed [...] Brief Cardiac Catheterization Procedure Note Kiara Martinez ([id number]) Pre Procedural Diagnosis Abnormal stress test [R94.39] [...] Swapnil Gilmore MD - Fellow Procedural Staff Software Sales Representative: Vandana Knox RN; Patty Gallegos RN Documenter: [...] fib. Hayley Melendez RN PREPARING FOR YOUR HIMS CODER PROCEDURE Your catheterization is scheduled on 03/19/23 at: [facility] located at [address] [place] [address]. You are to arrive at [facility] on the 1st floor at 6:00 AM You may use [employer] parking ($10) or park in the [employer] [facility]ing Garage just past the [place] ($3). There is a walkway from the 2nd floor of the garage into the [place] Lobby. You are to have nothing to [...] please call NOW to notify the lab ([phone]). You may receive sedation during your procedure [...] AFTER THE PROCEDURE. Labs: PLEASE GO TO [facility] TO HAVE YOUR LAB WORK DRAWN ABOUT 1 WEEK BEFORE YOUR PROCEDURE. GO THE WEEK OF 03/10 - 03/17 THESE ARE NOT FASTING LABS. YOU MAY BE TOLD BY ANOTHER DEPARTMENT THAT YOU WILL RECEIVE A REMINDER CALL THE DAY BEFORE YOUR PROCEDURE, BUT YOU WILL NOT RECEIVE A REMINDER CALL. IF YOU HAVE ANY QUESTIONS REGARDING THE PROCEDURE CALL US AT : [phone] THANK YOU, JEYSON DE LUNA Solar Panel Installer Scheduling The above instructions were given to patient verbally over the phone AND VIA MY CHART I called to schedule Ms. Martinez's heart cath. The number we have is her daughters. She said that her mom doesn't know anything about the cath yet. She asked that I give her a little time and call again in about an hour. documented in this encounter [facility] 03-19-2023 Surgery Postoperative evaluation and management note Preliminary Report - Brief Cardiac Catheterization Procedure Note Kiara Martinez ([id number]) Pre Procedural Diagnosis Abnormal stress test [R94.39] [...] Swapnil Gilmore MD - Fellow Procedural Staff Software Sales Representative: Vandana Knox RN; Patty Gallegos RN Documenter: Toshia Hernandez RN Full report to follow Swapnil Gilmore MD March 19, 2023 9:26 AM [facility] 03-19-2023 History and physical note PRE-CATH H&P [...] angiography. Tigre Mortensen, DO Fellow, Cardiovascular Medicine [facility] Work Phone: 03-19-2023 History and physical note [...] Fellow, Cardiovascular Medicine documented in this encounter [facility] 03-19-2023 Nurse Note Pt arrives to room [...] monitor shows a fib. Hayley Melendez RN [facility] 03-06-2023 Nurse Note PREPARING FOR YOUR HIMS CODER PROCEDURE Your catheterization is scheduled on 03/19/23 at: [facility] located at [address] [place] [address]. You are to arrive at [facility] on the 1st floor at 6:00 AM You may use mortgage loan fun[employer] parking ($10) or park in the [employer] [facility] [facility]age just past the [place] ($3). There is a walkway from the 2nd floor of the garage into the [place] Lobby. You are to have nothing to [...] please call NOW to notify the lab ([phone]). You may receive sedation during your procedure [...] AFTER THE PROCEDURE. Labs: PLEASE GO TO [facility] TO HAVE YOUR LAB WORK DRAWN ABOUT 1 WEEK BEFORE YOUR PROCEDURE. GO THE WEEK OF 03/10 - 03/17 THESE ARE NOT FASTING LABS. YOU MAY BE TOLD BY ANOTHER DEPARTMENT THAT YOU WILL RECEIVE A REMINDER CALL THE DAY BEFORE YOUR PROCEDURE, BUT YOU WILL NOT RECEIVE A REMINDER CALL. IF YOU HAVE ANY QUESTIONS REGARDING THE PROCEDURE CALL US AT : [phone] THANK YOU, JEYSON DE LUNA Solar Panel Installer Scheduling The above instructions were given to patient verbally over the phone AND VIA MY CHART [facility] 03-06-2023 Nurse Note I called to schedule Ms. Martinez's heart cath. The number we have is her daughters. She said that her mom doesn't know anything about the cath yet. She asked that I give her a little time and call again in about an hour. [facility] 03-05-2023 History of Presen t illness Narrative Caffeine free for >24 hours. status n/a status n/a Pharmacologic nuclear stress procedure explained to patient. Risk/benefits of the procedure were reviewed and patient verbalized understanding. Medical tobacco checkout clerk offered to patient prior to sensitive procedure [...] from the clinic. documented in this encounter [facility] [facility] 03-05-[facility]23 Hospital Discharg e instructions Corine Wallace RN - 03/05/2023 8:15 AM EST After the completion of your nuclear test at the [facility], you should be aware of the following [...] Dr. Cevallos today. A qualified and licensed [facility] mixer operator hot metal will interpret your study and a final [...] technologist if this is the case. (Reference: [id number], Volume 9, Revision 2, Appendix U). If you have any questions or concerns regarding your exam, please call the [place] office at [phone], Friday through Friday, between the hours of 8:00 AM and 5:00 PM. For medical emergencies, please call 911 or go to your nearest emergency room. ? To Whom It May Concern: Our patient, Kiara, was seen at The [facility] on 03/05/2023 for a nuclear test of [...] further questions please contact our staff @ [phone] Friday through Friday, between the hours of 8:00 AM and 5:00 PM. Morgan Power, [facility] Siding Mechanic and RSO [facility] [[email or web address]] @ Outpatient Care [place] [address] documented in this encounter [facility] 02-21-2023 History of Presen t illness Narrative [...] or swallow concerns. documented in this encounter [facility] 02-19-2023 Evaluation + Plan note Associated [...] risk can be kept at a minimum. [facility] 02-19-2023 Miscellaneous Notes Associated Problem(s): Pre-operative cardiovascular [...] does know that she needs to continue [employer] antibiotic prophylaxis as deemed appropriate. [...] status. 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 documented in this encounter [facility] 02-19-2023 Miscellaneous Notes Associated Problem(s): Pre-operative cardiovascular [...] does know that she needs to continue [employer] antibiotic prophylaxis as deemed appropriate. [...] status. 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 [...] status. 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 [facility] 02-19-2023 Evaluation + Plan note Associated Problem(s): Hyperlipidemia She will continue her lipid-lowering therapy. This is rosuvastatin 20 mg p.o. q.day. [facility] 02-19-2023 Evaluation + Plan note Associated Problem(s): Essential hypertension She was asked to monitor her blood pressure. Depending upon her blood pressure trends she may or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 CAROTID BILATERAL Jacque Talbot MD [address] [facility] 5th Floor [address] [place] [address] Referral ID Status Reason Start Date Expiration Date V isits Requested Visits Authorized [id number] New Request 09/05/2021 09/30/2022 1 1 Specialty Diagnoses / Procedures Referred By Courtney t Referred To Contact Neurology Diagnoses Bilateral carotid artery stenosis Dizziness Jacque Talbot MD [address] [facility] 5th Floor [address] [place] [address] Referral ID Status Reason Start Date Expiration Date V isits Requested Visits Authorized [id number] New Request 09/05/2021 09/30/2022 1 1 Specialty Diagnoses / Procedures Referred By Sammyac t Referred To Contact Diagnoses Loss of memory Procedures MRI BRAIN WITHOUT CONTRAST WI MRI BRAIN Melody Ren MD [address] [address] Referral ID Status Reason Start Date Expiration Date V isits Requested Visits Authorized [id number] New Request 04/25/2022 05/20/2023 1 1 Referral ID Status Reason Start Date Expiration Date Visits Re quested Visits Authorized [id number] Closed 04/25/2022 05/20/2023 1 1 Specialty Diagnoses / Procedures Referred By Courtney t Referred To Contact Diagnoses Peripheral vertigo involving left ear Procedures MRI INTERNAL AUDITORY CANAL WITH AND WITHOUT CONTRAST WI MRI BRAIN COMBO Melody Ren MD [address] [address] Referral ID Status Reason Start Date Expiration Date Visits Re quested Visits Authorized [id number] Closed 06/07/2022 07/02/2023 1 1 Specialty Diagnoses / Procedures Referred By Contac t Referred To Contact Diagnoses Vestibular schwannoma Procedures MRI INTERNAL AUDITORY CANAL WITH AND WITHOUT CONTRAST WI MRI BRAIN COMBO Alistair Stevenson MD [address] [address] Referral ID Status Reason Start Date Expiration Date V isits Requested Visits Authorized [id number] New Request 08/20/2022 09/14/2023 1 1 Specialty Diagnoses / Procedures Referred By Contac t Referred To Contact Diagnoses Bilateral carotid artery stenosis Procedures VASC DUPLEX CAROTID BILATERAL Tayla Carter R, PAC [address] [place] [address] Referral ID Status Reason Start Date Expiration Date V isits Requested Visits Authorized [id number] New Request 03/13/2022 04/07/2023 1 1 Specialty Diagnoses / Procedures Referred By Contac t Referred To Contact Diagnoses Bilateral carotid artery stenosis Procedures CT ANGIO BRAIN/NECK WI CT ANGIO,HEAD COMBO,INCL IMAGE PROCESS WI CT ANGIO,NECK COMBO,INCL IMAGE PROCESS Tayla Carter, PAC [address] [place] [address] Referral ID Status Reason Start Date Expiration Date V isits Requested Visits Authorized [id number] New Request 09/11/2022 10/06/2023 1 1 Specialty Diagnoses / Procedures Referred By Contac t Referred To Contact Diagnoses Asymptomatic bilateral carotid artery stenosis Procedures ECG Tayla Carter R, PAC [address] [place] [address] Referral ID Status Reason Start Date Expiration Date V isits Requested Visits Authorized [id number] New Request 10/30/2022 11/24/2023 1 1 Referral ID Status Reason Start Date Expiration Date Visits Re quested Visits Authorized [id number] Closed 09/11/2022 10/06/2023 1 1 Specialty Diagnoses / Procedures Referred By Contac t Referred To Contact Echocardiography Diagnoses 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 Procedures ECHOCARDIOGRAM WI ECHO HEART XTHORACIC,COMPLETE W DOPPLER Jacque Talbot MD [address] [facility] [address] 5th Floor [address] [address] [place] [address] Referral ID Status Reason Start Date Expiration Date Visits Re quested Visits Authorized [id number] Closed 01/31/2023 02/25/2024 1 1 Specialty Diagnoses / Procedures Referred By Contac t Referred To Contact Diagnoses 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 Procedures NUC MYOCARD PERF STRESS MIBI PHARM WI CHG MYOCARDIAL SPECT MULTIPLE STUDIES CHG MYOCARDIAL SPECT MULTIPLE STUDIES-T WI CARDIAC STRESS TST,INTERP/REPT ONLY WI CV STRS TST XERS&/OR RX CONT ECG W/O I&R Jacque Talbot MD [address] [facility] 5th [address] [address] Referral ID Status Reason Start Date Expiration Date Visits Re quested Visits Authorized [id number] Closed 01/31/2023 02/25/2024 1 1 Specialty Diagnoses / Procedures Referred By Contac t Referred To Contact Procedures ECG Escobar Reaves MD [address] [place] [address] Referral ID Status Reason Start Date Expiration Date V isits Requested Visits Authorized [id number] New Request 03/19/2023 04/12/2024 1 1 Additional Source Comments INFORMATION SOURCE (unrecogn ized section and content) DATE CREATED AUTHOR AUTHOR'S ORGANIZ ATION 03/25/2023 [facility] Reason for Visit (unrecogniz ed section and content) Specialty Diagnoses / Procedures Referred By Contac t Referred To Contact Diagnoses Bilateral carotid artery stenosis Procedures VASC DUPLEX CAROTID BILATERAL VASC DUPLEX CAROTID BILATERAL Jacque Talbot MD [address] [facility] 5th [address] [address] Referral ID Status Reason Start Date Expiration Date V isits Requested Visits Authorized [id number] New Request 09/05/2021 09/30/2022 1 1 Reason Comments New Patient Specialty Diagnoses / Procedures Referred By Contac t Referred To Contact Neurology Diagnoses Bilateral carotid artery stenosis Dizziness Jacque Talbot MD [address] [facility] 5th [address] [address] Referral ID Status Reason Start Date Expiration Date V isits Requested Visits Authorized [id number] New Request 09/05/2021 09/30/2022 1 1 Specialty Diagnoses / Procedures Referred By Courtney michele Referred To Contact Diagnoses Loss of memory Procedures MRI BRAIN WITHOUT CONTRAST WI MRI BRAIN Melody Ren MD [address] [address] Referral ID Status Reason Start Date Expiration Date Visits Re quested Visits Authorized [id number] Closed 04/25/2022 05/20/2023 1 1 Specialty Diagnoses / Procedures Referred By Courtney t Referred To Contact Diagnoses Peripheral vertigo involving left ear Procedures MRI INTERNAL AUDITORY CANAL WITH AND WITHOUT CONTRAST WI MRI BRAIN COMBO Melody Ren MD [address] [address] Referral ID Status Reason Start Date Expiration Date Visits Re quested Visits Authorized [id number] Closed 06/07/2022 07/02/2023 1 1 Reason Comments Vestibular Schwanoma vestibular schwanno ma pt stated that she is a nodule behind her left ear and she gets dizzy some times Specialty Diagnoses / Procedures Referred By Courtney t Referred To Contact Diagnoses Bilateral carotid artery stenosis Procedures VASC DUPLEX CAROTID BILATERAL Tayla Carter, PAC [address] [place] [address] Referral ID Status Reason Start Date Expiration Date V isits Requested Visits Authorized [id number] New Request 03/13/2022 04/07/2023 1 1 Reason Comments Follow-up Reason Comments Follow-up Follow up after CTA Specialty Diagnoses / Procedures Referred By Courtney t Referred To Contact Diagnoses Bilateral carotid artery stenosis Procedures CT ANGIO BRAIN/NECK WI CT ANGIO,HEAD COMBO,INCL IMAGE PROCESS WI CT ANGIO,NECK COMBO,INCL IMAGE PROCESS Tayla Carter, PAC [address] [place] [address] Referral ID Status Reason Start Date Expiration Date Visits Re quested Visits Authorized [id number] Closed 09/11/2022 10/06/2023 1 1 Specialty Diagnoses / Procedures Referred By Courtney michele Referred To Contact Diagnoses Bilateral carotid artery stenosis Bilateral carotid artery stenosis [I65.23] Procedures WI PLACE CATH SUBSELECT ART,NECK PLACEMENT CATHETER SELECTIVE ARTERY INITIAL 2ND ORDER THORACIC/BRACHIOCEPHALIC Jacque Talbot MD [address] [facility] [address] [place] [address] [facility] [address] [place] [address] Referral ID Status Reason Start Date Expiration Date Visits Re quested Visits Authorized [id number] 1 1 Reason Comments Surgical Follow-up Follow-up [...] due to calcified coronary lesion Procedures ECHOCARDIOGRAM WI ECHO HEART XTHORACIC,COMPLETE W DOPPLER Jacque Talbot MD [address] [facility] 5th Floor [address] [address] [place] [address] Referral ID Status Reason Start Date Expiration Date Visits Re quested Visits Authorized [id number] Closed 01/31/2023 02/25/2024 1 1 Reason Comments Consult Patient here for voc al cord check. 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 Procedures NUC MYOCARD PERF STRESS MIBI PHARM WI CHG MYOCARDIAL SPECT MULTIPLE STUDIES CHG MYOCARDIAL SPECT MULTIPLE STUDIES-T WI CARDIAC STRESS TST,INTERP/REPT ONLY WI CV STRS TST XERS&/OR RX CONT ECG W/O I&R Jacque Talbot MD [address] [facility] 5th [address] [place] [address] Referral ID Status Reason Start Date Expiration Date Visits Re quested Visits Authorized [id number] Closed 01/31/2023 02/25/2024 1 1 Specialty Diagnoses / Procedures Referred By Contac t Referred To Contact Diagnoses Abnormal stress test Abnormal stress test [R94.39] Procedures WI CATH PLMT L HRT & ARTS W/NJX & ANGIO IMG S&I CORONARY ANGIOGRAM CORONARY BYPASS GRAFT ANGIOGRAM LEFT HEART CATHETERIZATION [facility] [address] [place] [address] [facility] [address] [place] [address] Referral ID Status Reason Start Date Expiration Date Visits Re quested Visits Authorized [id number] 1 1 Care Teams (unrecognized sec tion and content) Journeyman Level Acoustic Analyst 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 Specialty Start Date End Date Noe Rodriguez MD [address] [place] [address] PCP - Referring 1 Cardiovascular Disease 02/07/16 Naveen Osullivan MD [address] [place] [address] PCP - General Family Medicine 03/22/16 Noe Rodriguez MD [address] [facility] [address] [place] [address] Referring Provider Cardiovascular Disease 12/18/15 Larisa Jean, RN Registered Nurse 03/05/16 Journeyman Level Acoustic Analyst 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 Specialty Start Date End Date Noe Rodriguez MD [address] [place] [address] PCP - Referring 1 Cardiovascular Disease 02/07/16 Naveen Osullivan MD [address] [place] [address] PCP - General Family Medicine 03/22/16 Noe Rodriguez MD [address] [facility] [address] [place] [address] Referring Provider Cardiovascular Disease 12/18/15 Larisa Jean, RN Registered Nurse 03/05/16 Journeyman Level Acoustic Analyst 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 Specialty Start Date End Date Noe Rodriguez MD [address] [place] [address] PCP - Referring 1 Cardiovascular Disease 02/07/16 Naveen Osullivan MD [address] [place] [address] PCP - General Family Medicine 03/22/16 Noe Rodriguez MD [address] [facility] [place] [address] Referring Provider Cardiovascular Disease 12/18/15 Larisa Jean, ANNAMARIE Registered Nurse 03/05/16 Journeyman Level Acoustic Analyst 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 Specialty Start Date End Date Noe Rodriguez MD [address] [place] [address] PCP - Referring 1 Cardiovascular Disease 02/07/16 Naveen Osullivan MD [address] [place] [address] PCP - General Family Medicine 03/22/16 Noe Rodriguez MD [address] [facility] [place] [address] Referring Provider Cardiovascular Disease 12/18/15 Larisa Jean, ANNAMARIE Registered Nurse 03/05/16 Journeyman Level Acoustic Analyst 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 Specialty Start Date End Date Noe Rodriguez MD [address] [place] [address] PCP - Referring 1 Cardiovascular Disease 02/07/16 Naveen Osullivan MD [address] [place] [address] PCP - General Family Medicine 03/22/16 Noe Rodriguez MD [address] [facility] [place] [address] Referring Provider Cardiovascular Disease 12/18/15 Larisa Jean, RN Registered Nurse 03/05/16 Journeyman Level Acoustic Analyst 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 Specialty Start Date End Date Noe Rodriguez MD [address] [place] [address] PCP - Referring 1 Cardiovascular Disease 02/07/16 Naveen Osullivan MD [address] [place] [address] PCP - General Family Medicine 03/22/16 Noe Rodriguez MD [address] [facility] [place] [address] Referring Provider Cardiovascular Disease 12/18/15 Larisa Jean, ANNAMARIE Registered Nurse 03/05/16 Journeyman Level Acoustic Analyst 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 Specialty Start Date End Date Noe Rodriguez MD [address] [place] [address] PCP - Referring 1 Cardiovascular Disease 02/07/16 Naveen Osullivan MD [address] [facility] [place] [address] PCP - General Family Medicine 03/22/16 Noe Rodriguez MD [address] [facility] [place] [address] Referring Provider Cardiovascular Disease 12/18/15 Larisa Jean, RN Registered Nurse 03/05/16 Journeyman Level Acoustic Analyst 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 Specialty Start Date End Date Noe Rodriguez MD [address] [place] [address] PCP - Referring 1 Cardiovascular Disease 02/07/16 Naveen Osullivan MD [address] [place] [address] PCP - General Family Medicine 03/22/16 Noe Rodriguez MD [address] [facility] [facility] [address] [place] [address] Referring Provider Cardiovascular Disease 12/18/15 Larisa Jean, RN Registered Nurse 03/05/16 Journeyman Level Acoustic Analyst 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 Specialty Start Date End Date Noe Rodriguez MD [address] [place] [address] PCP - Referring 1 Cardiovascular Disease 02/07/16 Naveen Osullivan MD [address] [place] [address] PCP - General Family Medicine 03/22/16 Noe Rodriguez MD [address] [facility] [address] [place] [address] Referring Provider Cardiovascular Disease 12/18/15 Larisa Jean, RN Registered Nurse 03/05/16 Journeyman Level Acoustic Analyst 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 Specialty Start Date End Date Noe Rodriguez MD [address] [place] [address] PCP - Referring 1 Cardiovascular Disease 02/07/16 Naveen Osullivan MD [address] [place] [address] PCP - General Family Medicine 03/22/16 Noe Rodriguez MD [address] [facility] [place] [address] Referring Provider Cardiovascular Disease 12/18/15 Larisa Jean, RN Registered Nurse 03/05/16 Journeyman Level Acoustic Analyst 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 Specialty Start Date End Date Noe Rodriguez MD [address] [place] [address] PCP - Referring 1 Cardiovascular Disease 02/07/16 Naveen Osullivan MD [address] [facility] [place] [address] PCP - General Family Medicine 03/22/16 Noe Rodriguez MD [address] [facility] [place] [address] Referring Provider Cardiovascular Disease 12/18/15 Larisa Jean RN Registered Nurse 03/05/16 Journeyman Level Acoustic Analyst 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 Specialty Start Date End Date Noe Rodriguez MD [address] [place] [address] PCP - Referring 1 Cardiovascular Disease 02/07/16 Naveen Osullivan MD [address] [facility] [place] [address] PCP - General Family Medicine 03/22/16 Noe Rodriguez MD [address] [facility] [place] [address] Referring Provider Cardiovascular Disease 12/18/15 Larisa Jean, ANNAMARIE Registered Nurse 03/05/16 Journeyman Level Acoustic Analyst 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 Specialty Start Date End Date Noe Rodriguez MD [address] [place] [address] PCP - Referring 1 Cardiovascular Disease 02/07/16 Naveen Osullivan MD [address] [place] [address] PCP - General Family Medicine 03/22/16 Noe Rodriguez MD [address] [facility] [place] [address] Referring Provider Cardiovascular Disease 12/18/15 Larisa Jean, RN Registered Nurse 03/05/16 Journeyman Level Acoustic Analyst 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 Specialty Start Date End Date Noe Rodriguez MD [address] [place] [address] PCP - Referring 1 Cardiovascular Disease 02/07/16 Naveen Osullivan MD [address] [place] [address] PCP - General Family Medicine 03/22/16 Noe Rodriguez MD [address] [facility] [place] [address] Referring Provider Cardiovascular Disease 12/18/15 Larisa Jean, RN Registered Nurse 03/05/16 Journeyman Level Acoustic Analyst 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 Specialty Start Date End Date Noe Rodriguez MD [address] [place] [address] PCP - Referring 1 Cardiovascular Disease 02/07/16 Naveen Osullivan MD [address] [place] [address] PCP - General Family Medicine 03/22/16 Noe Rodriguez MD [address] [facility] [place] [address] Referring Provider Cardiovascular Disease 12/18/15 Larisa Jean, RN Registered Nurse 03/05/16 Journeyman Level Acoustic Analyst 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 Specialty Start Date End Date Noe Rodriguez MD [address] [facility] [address] [place] [address] PCP - Referring 1 Cardiovascular Disease 02/07/16 Naveen Osullivan MD [address] [place] [address] PCP - General Family Medicine 03/22/16 Noe Rodriguez MD [address] [facility] [address] [place] [address] Referring Provider Cardiovascular Disease 12/18/15 Larisa Jean, ANNAMARIE Registered Nurse 03/05/16 03/05/23 Journeyman Level Acoustic Analyst 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 Specialty Start Date End Date Noe Rodriguez MD [address] [facility] [address] [place] [address] PCP - Referring 1 Cardiovascular Disease 02/07/16 aNveen Osullivan MD [address] [place] [address] PCP - General Family Medicine 03/22/16 Noe Rodriguez MD [address] [facility] [address] [place] [address] Referring Provider Cardiovascular Disease 12/18/15 Scheduled Active [...] Intra-op/Intra-Proc 08 (Given - Provid er: Jacque Talbot MD) Lidocaine (XYLOCAINE) 10 mg/mL injection (CANCELED) [...] BE BASED ON THE PRIMARY CLINICAL RECORDS. [facility]. provides no warranty or guarantee of the accuracy or completeness of information in this document.
== END | disposition home or self-care (01) ==
LOC: LAB.FUTURE 10:11
PROVIDERS: PCP Family Medicine; Visit Provider Internal Medicine Cardiovascular Disease
DX: I25.10 Atherosclerotic heart disease of native coronary artery without angina pectoris (principal); I48.21 Permanent atrial fibrillation; Z95.1 Presence of aortocoronary bypass graft; Z95.3 Presence of xenogenic heart valve; I10 Essential (primary) hypertension
CPT/HCPCS: 36415; 80048

== ENCOUNTER → 2023-04-17 | Outpatient (CLI) | payer MEDICARE, SELFPAY ==
[2023-04-17 12:58] LABS: Anion Gap 4 (5-15); BUN 17 mg/dL (7-18); BUN/Creat Ratio 17.2 RATIO (10-20); Calcium,Total 8.5 mg/dL (8.5-10.1); Chloride 105 mmol/L (98-107); Creatinine, Serum 0.99 mg/dL (0.55-1.02); EST Glomerular Filtration Rate 57 mL/min (>60); Est Glom Filt Rate - Afr Amer 69 mL/min (>60); Glucose 151 mg/dL (74-106); Potassium 3.7 mmol/L (3.5-5.1); Sodium Level 140 mmol/L (136-145)
== END | disposition home or self-care (01) ==
LOC: LAB 11:56
PROVIDERS: PCP Family Medicine; Referring Provider Internal Medicine Cardiovascular Disease; Visit Provider Internal Medicine Cardiovascular Disease
DX: I25.10 Atherosclerotic heart disease of native coronary artery without angina pectoris (principal); I48.21 Permanent atrial fibrillation; Z95.1 Presence of aortocoronary bypass graft; Z95.3 Presence of xenogenic heart valve; I10 Essential (primary) hypertension; E78.5 Hyperlipidemia, unspecified
CPT/HCPCS: 36415; 80048

== ENCOUNTER 2023-05-03 11:30 | Emergency (ER) | payer MEDICARE, SELFPAY ==
[2023-05-03] VITALS (7 sets, daily range): BP systolic 101–130; BP diastolic 50–75; PULSE 80–103; RESP 16–18; TEMP 36.3–36.8; O2SAT 93–96; BMI 34.3
--- NOTE | 2023-05-03 11:49 | EDS_ITS ---
HPI History of Present Illness Chief Complaint: Shortness of Breath Narrative Narrative: 82-year-old female with PMH of HTN, HLD, A-fib, CABG x 2 (1986, 2005) cardiac stents, TAVR (2010), ALMA presents with 1 month of ongoing chest tightness and shortness of breath that worsened the last 2 days. She states it started after she had a nuclear stress test in [place]. She was getting cardiac clearance for carotid surgery. A nuclear stress test was on 03/05/2023 followed by a cardiac catheterization on 03/19/2023. The cath showed a blockage in a posterior vessel of the heart that was not amenable to intervention. They adjusted her statin and decided against carotid surgery due to the risks. Patient states since the stress test she has never felt right and feels short of breath. Her clinical services manager is Dr. Worthington in [place]. He increased her Lasix to 40 mg twice a day 1 week ago and her leg edema has decreased. She does report an intermittent productive cough but no fever or chills. No GI symptoms. She is compliant with Eliquis for A-fib. [facility] Medical History Afib Atherosclerosis of coronary artery bypass graft without angina pectoris Atherosclerosis of coronary artery of [place] heart without angina pectoris Carotid artery stenosis CHF (congestive heart failure) Chronic anemia COPD with acute exacerbation Degeneration of intervertebral disc of lumbosacral region Depression Dyspnea Essential hypertension GERD (gastroesophageal reflux disease) GI bleed (~02/16/16) History of GI bleed (02/2016) History of non-ST elevation myocardial infarction (NSTEMI) (06/24/05) HLD (hyperlipidemia) Hypothyroidism Left bundle branch block Lumbar facet arthropathy Lumbosacral spondylosis Non-rheumatic aortic stenosis Obesity Old myocardial infarction ALMA (obstructive sleep apnea) Persistent atrial fibrillation Scarlet fever Severe aortic stenosis Thyroid nodule Home Medications levothyroxine 88 mcg tablet 88 mcg PO DAILY 11/23/13 [History Last Taken 03/19/22] multivitamin-ferrous fumarate-folic acid 18 mg-400 mcg tablet 1 ea PO DAILY 02/07/17 [History Last Taken Unknown] calcium carbonate 500 mg-vitamin D3 5 mcg (200 unit) tablet (Os-Christian 500 + D3) 1 tab PO BID 11/28/17 [History Last Taken Unknown] mucus clearing device #1 ea 08/13/18 [History Last Taken Unknown] magnesium oxide 400 mg (241.3 mg magnesium) tablet (MagOx) 400 mg PO DAILY 12/31/18 [History Last Taken Unknown] Disability Parking Placard #1 ea 05/30/20 [Rx Last Taken Unknown] aspirin 81 mg tablet,delayed release (Adult Aspirin Regimen) 81 mg PO DAILY 05/02/22 [History Last Taken Unknown] furosemide 20 mg tablet 20 mg PO DAILY PRN Swelling #30 tabs 05/14/22 [Rx Last Taken Unknown] potassium chloride 10 mEq tablet,extended release 10 meq PO DAILY PRN When you take Lasix for swelling #30 tabs 05/14/22 [Rx Last Taken Unknown] isosorbide mononitrate 20 mg tablet See Rx Instructions .Route .COMPLEX #180 tabs 06/10/22 [Rx Last Taken Unknown] rosuvastatin 20 mg tablet See Rx Instructions .Route .COMPLEX #90 tabs 10/28/22 [Rx Last Taken Unknown] tiotropium 2.5 mcg-olodaterol 2.5 mcg/actuation mist for inhalation (Stiolto Respimat) 2 inh inhalation DAILY #4 grams 10/28/22 [Rx Last Taken Unknown] apixaban 5 mg tablet (Eliquis) 5 mg PO BID #60 tabs 12/10/22 [Rx Last Taken Unknown] nitroglycerin 0.4 mg sublingual tablet See Rx Instructions .Route .COMPLEX #25 tabs 04/02/23 [Rx Last Taken Unknown] amoxicillin 875 mg-potassium clavulanate 125 mg tablet 1 tab PO BID #20 tabs 04/04/23 [Rx Last Taken Unknown] prednisone 10 mg tablet 10 mg PO QDAY #30 tabs 04/04/23 [Rx Last Taken Unknown] albuterol sulfate 90 mcg/actuation aerosol inhaler (Ventolin HFA) 2 puff inhalation Q4H PRN shortness of breath or wheezing #18 grams 04/08/23 [Rx Last Taken Unknown] losartan 50 mg tablet 50 mg PO DAILY #90 tabs 04/08/23 [Rx Last Taken Unknown] pantoprazole 40 mg tablet,delayed release 40 mg PO DAILY #90 tabs 04/08/23 [Rx Last Taken Unknown] albuterol sulfate 2.5 mg/0.5 mL solution for nebulization 2.5 mg (0.5 mL) inhalation Q4H PRN PRN shortness of breath or wheezing #30 ea 05/03/23 [Rx Last Taken Unknown] Allergy/AdvReac Type Severity Reaction Status Date / Time adhesive AdvReac Rash Verified 03/17/23 07:56 nickel AdvReac Rash Verified 03/17/23 07:56 wool AdvReac Rash Verified 03/17/23 07:56 Family History Mother CAD (coronary artery disease) Hypertension Alzheimer disease Daughter CAD (coronary artery disease) Myocardial infarction Sister Breast cancer Myocardial infarction Brother Myocardial infarction Father CVA (cerebral vascular accident) Heart disease Hypertension Aneurysm and dissection of heart Surgical History H/O aortic valve replacement (01/31/16) History of aortic valve replacement with bioprosthetic valve (~01/31/16) History of cardiac catheterization (~2015) History of cataract extraction (~2008) History of colonoscopy (~2007) History of colonoscopy (~2015) History of electrophysiologic study (02/02/16) History of hysterectomy History of inguinal herniorrhaphy History of lumpectomy of left breast History of partial thyroidectomy (~2008) History of squamous cell carcinoma excision Hx of cholecystectomy Previous back surgery S/P CABG x 2 (10/22/05) S/P CABG x 3 (~1986) Status post Mohs surgery for basal cell carcinoma (~2007) Stented coronary artery (~06/24/05) Social History Smoking Status: Former smoker quit date: 04/07/02 pack-years: 35 second hand exposure: No alcohol intake: never substance use type: does not use caffeine: Yes Type: coffee Number of servings: 2 ROS ROS ED ROS Narrative Constitutional: Negative for fever, chills, malaise. CVS: Positive for chest pain. No syncope or palpitations. Respiratory: Positive for shortness of breath, cough. Negative for orthopnea. GI: Negative for abdominal pain, nausea, vomiting, melena, hematochezia. EXAM Physical Exam Narrative Exam Narrative: CONST: Patient sitting in no acute distress. EYES: Normal inspection. NECK: Normal inspection. RESP: No respiratory distress, CTAB. CVS: Irregularly irregular rhythm, no murmur, no gallop. SKIN: Color normal, no rash, warm, dry, intact. EXTREMITIES: Normal appearance, trace pedal edema. NEURO: Oriented x4. PSYCH: Normal affect. Const Vital Signs: 05/03/23 11:30 05/03/23 12:11 05/03/23 12:11 Temperature 97.4 F L Temperature Source Temporal Pulse Rate 103 H Respiratory Rate 16 Respiratory Effort Normal Blood Pressure 130/75 H Blood Pressure Mean 93 Pulse Ox 96 Oxygen Delivery Method Room Air Room Air Room Air 05/03/23 13:00 05/03/23 14:00 Temperature Temperature Source Pulse Rate 84 80 Respiratory Rate 16 18 Respiratory Effort Blood Pressure 103/50 L 101/54 L Blood Pressure Mean 67 69 Pulse Ox 93 93 Oxygen Delivery Method Room Air Room Air MDM MDM MDM Narrative Medical decision making narrative: History gathered from: Patient and family member Patient with significant cardiac history including A-fib, CABG, TAVR presents with 1 month of chest tightness and dyspnea that started after a nuclear stress test. She had a cardiac catheterization after that in March 2023 showing a small blockage not amenable to intervention. Treated medically. She presents due to persistent symptoms. She appears well and nontoxic. She is in A-fib between 90 to 105 bpm. Blood pressures 130s/70s and she is 96% on room air in no distress. Lungs have faint wheezing from COPD. She has 1+ edema of both ankles which is chronic. CBC is WNL. BMP shows glucose of 158 otherwise unremarkable. BNP 103. Troponins are elevated but stable at 98 and 85. CXR shows no acute process. Patient's blood pressure improved after 500 cc bolus. She has not wheezed at all here. With a month of ongoing symptoms and recent cardiac catheterization I do not think she needs admitted. They are doing medical management for CAD. She states at home she has been wheezing quite a bit but she has not wheeze at all here. She requested albuterol for her nebulizer machine which I filled. Patient instructed to follow-up with her specialists and she was discharged in stable condition. Differential: Pneumonia, COPD exacerbation, ACS Test considered: No indication for D-dimer/PE workup as she is compliant with anticoagulant Lab Data Attestation: I reviewed the patient's lab results. Labs: Laboratory Results - last 24 hr 05/03/23 05/03/23 12:00 14:00 WBC 4.7 RBC 4.51 Hgb 14.0 Hct 43.7 MCV 96.9 MCH 31.0 MCHC 32.0 RDW Std Deviation 51.4 H RDW Coeff of Ryan 14.4 Plt Count 150 MPV 12.9 H Immature Gran % (Auto) 0.800 Neut % (Auto) 45.7 L Lymph % (Auto) 29.4 Randall % (Auto) 18.4 H Eos % (Auto) 4.4 Baso % (Auto) 1.3 H Absolute Neuts (auto) 2.2 Absolute Lymphs (auto) 1.39 Nucleated RBC % 0 Sodium 138 Potassium 4.1 Chloride 107 Carbon Dioxide 28.0 Anion Gap 3 L BUN 17 Creatinine 1.03 H Estim Creat Clear Calc 38.67 Est GFR (MDRD) Af Amer 66 Est GFR (MDRD) Non-Af 54 L BUN/Creatinine Ratio 16.5 Glucose 158 H Calcium 9.3 Troponin I High Sens 98 H 85 H B-Natriuretic Peptide 103.7 H Radiography Diagnostic Testing: Clinical Impression(s) from Imaging Studies Chest X-Ray 05/03/23 11:50 IMPRESSION: No acute cardiopulmonary process identified. Chronic scarring in the left lung base. Electronically Signed: Lo Antonio MD at 12:18 EST Reading Location ID and State: [facility] / [place] Tel , Service support , ED attending interpretation of 1-view chest x-ray shows normal heart size, no acute infiltrate, edema, or effusion. EKG Initial EKG: Attestation: I personally reviewed and interpreted this EKG as follows: Comments: Atrial fibrillation at 81 bpm Nonspecific T wave abnormality No STEMI Discharge Plan Triage Chief Complaint: Shortness of Breath ED Midlevel Provider: Yary Link ED Provider: Shamar Garcia Dx/Rx/DC Orders Clinical Impression: Acute dyspnea, Atypical chest pain, History of coronary artery disease Instructions: ED Dyspnea Prescriptions: New albuterol sulfate 2.5 mg/0.5 mL solution for nebulization 2.5 mg inhalation Q4H PRN PRN (Reason: shortness of breath or wheezing) Qty: 30 0RF Rx Instructions: for up to 3 doses No Action calcium carbonate-vitamin D3 [Os-Christian 500 + D3] 500 mg(1,250mg) -200 unit tablet 1 tab PO BID magnesium oxide [MagOx] 400 mg (241.3 mg magnesium) tablet 400 mg PO DAILY (DME) mucus clearing device device See Dose Instructions .ROUTE .MEDSUPPLY Qty: 1 Rx Instructions: As directed aspirin [Adult Aspirin Regimen] 81 mg tablet,delayed release (DR/EC) 81 mg PO DAILY levothyroxine 88 MCG tablet 88 mcg PO DAILY Patient Comments: thyroid gxorjbarmyzs-hkhj-bpaek acid 1 EACH tablet 1 ea PO DAILY (DME) Disability Parking Placard See Rx Instructions .Route .MEDSUPPLY Qty: 1 0RF Rx Instructions: As directed furosemide 20 mg tablet 20 mg PO DAILY PRN (Reason: Swelling) Qty: 30 6RF potassium chloride 10 mEq tablet extended release 10 meq PO DAILY PRN (Reason: When you take Lasix for swelling) Qty: 30 6RF isosorbide mononitrate 20 mg tablet See Rx Instructions .ROUTE .COMPLEX Qty: 180 3RF Dose Instruction: TAKE 1 TABLET TWICE DAILY Rx Instructions: TAKE 1 TABLET TWICE DAILY Stiolto Respimat 2.5-2.5 mcg/actuation mist 2 inh inhalation DAILY Qty: 4 11RF rosuvastatin 20 mg tablet See Rx Instructions .ROUTE .COMPLEX Qty: 90 3RF Dose Instruction: TAKE 1 TABLET EVERY DAY Rx Instructions: TAKE 1 TABLET EVERY DAY Eliquis 5 mg tablet 5 mg PO BID Qty: 60 11RF nitroglycerin 0.4 mg tablet, sublingual See Rx Instructions .ROUTE .COMPLEX Qty: 25 3RF Dose Instruction: DISSOLVE 1 TABLET UNDER THE TONGUE EVERY 5 MINUTES NEEDED FOR CHEST PAIN Rx Instructions: DISSOLVE 1 TABLET UNDER THE TONGUE EVERY 5 MINUTES NEEDED FOR CHEST PAIN amoxicillin-pot clavulanate 875-125 mg tablet 1 tab PO BID Qty: 20 0RF prednisone 10 mg tablet 10 mg PO QDAY Qty: 30 0RF Rx Instructions: take 4 tabs for three days, then 3 tabs for three days, then 2 tabs for three days, then 1 tab for 3 days Ventolin HFA 90 mcg/actuation HFA aerosol inhaler 2 puff INHALATION Q4H PRN (Reason: shortness of breath or wheezing) Qty: 18 6RF pantoprazole 40 mg tablet,delayed release (DR/EC) 40 mg PO DAILY Qty: 90 3RF losartan 50 mg tablet 50 mg PO DAILY Qty: 90 3RF Primary Care Provider: Rupert Osullivan Referrals: Rupert Osullivan MD [Primary Care Provider] - Activity Restrictions/Additional Instructions: Please follow-up with your specialists as scheduled Disposition Disposition: Home, Self Care
--- NOTE | 2023-05-03 11:50 | RAD_ITS ---
HISTORY: chest pain. TECHNIQUE: XR Chest 1 View. COMPARISON: 04/04/2023. FINDINGS: CARDIOMEDIASTINAL BORDERS: Cardiac silhouette within normal limits in size with aortic valve prosthesis and coronary artery bypass graft again seen. Mediastinal contour unremarkable with midline sternotomy and mediastinal clips. LUNGS/PLEURA: Chronic left basilar pleural parenchymal scarring. OSSEOUS STRUCTURES: Mild degenerative change. RAD/Chest 1 View (Portable) IMPRESSION: No acute cardiopulmonary process identified. Chronic scarring in the left lung base. Electronically Signed: Lo Antonio MD at 12:18 EST ,
[2023-05-03] MEDS: Aspirin 81 MG TAB.CHEW 324 MG PO (12:10)
[2023-05-03 12:13] LABS: Absolute Lymphocyte Count 1.39 X10^3/uL (0.83-4.51); Absolute Neutrophil Count 2.2 X10^3/uL (2.0-7.7); Basophil# 0.06 X10^3/uL; Basophil% 1.3 % (0-1); Eosinophil# 0.21 X10^3/uL; Eosinophils% 4.4 % (0-5); Hematocrit 43.7 % (37-47); Lymphocyte # 1.39 X10^3/ul (0.83-4.51); Lymphocyte % 29.4 % (19-41); Mean Corpuscular Volume 96.9 fL (81-99); Mean Platelet Vol. 12.9 fl (6.2-12.0); Monocyte# 0.87 X10^3/uL; Monocyte% 18.4 % (0-10); NRBC Flagged by Analyzer 0 % (0-5); Neutrophil # 2.15 X10^3/uL (2.7-7.7); Neutrophil % 45.7 % (47-70); Platelet Count 150 K/mm3 (150-450); RBC Distribution Width CV 14.4 % (11.6-14.6); RBC Distribution Width SD 51.4 fl (35.1-43.9); Red Blood Count 4.51 M/mm3 (4.2-5.4); White Blood Count 4.7 K/mm3 (4.4-11.0)
[2023-05-03 12:25] LABS: BNP,B-Type NATRIURETIC PEPTIDE 103.7 pg/mL (0-100)
[2023-05-03 12:28] LABS: Anion Gap 3 (5-15); BUN 17 mg/dL (7-18); BUN/Creat Ratio 16.5 RATIO (10-20); Calcium,Total 9.3 mg/dL (8.5-10.1); Chloride 107 mmol/L (98-107); Creatinine, Serum 1.03 mg/dL (0.55-1.02); EST Glomerular Filtration Rate 54 mL/min (>60); Est Glom Filt Rate - Afr Amer 66 mL/min (>60); Estimated Creatinine Clearance 38.67 ml/min; Glucose 158 mg/dL (74-106); Potassium 4.1 mmol/L (3.5-5.1); Sodium Level 138 mmol/L (136-145); Troponin-I HS (w/2H Reflex) 98 pg/mL (3.0-54.0)
--- OUTSIDE RECORDS SUMMARY | 2023-05-03 12:41 | XMS RPT_ITS | CCD ---
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 Name Role Phone Noe Rodriguez MD Unavailable [phone] Noe Rodriguez MD Unavailable [phone] Miranda DE LUNA, Larisa Unavailable Unavailable Naveen Osullivan MD Primary Care Provider Noe Rodriguez MD Unavailable [phone] Noe Rodriguez MD Unavailable [phone] Naveen Osullivan MD A Primary Care Provider OSULLIVAN, NAVEEN A Primary Care Unavailable OSULLIVAN, NAVEEN A Primary Care Unavailable ZAHORUJKO, TAYLA Referring Unavailable ZAHODAPHNEYO, TAYLA Attending Unavailable CHARBEL ARTEAGA Attending Unavailable SELF, SELF Referring Unavailable OSULLIVAN, NAVEEN A Primary Care Unavailable OSULLIVAN, NAVEEN A Referring Unavailable MADAY TALBOT Attending Unavailable OSULLIVAN, NAVEEN A Primary Care Unavailable OSULLIVAN, NAVEEN A Primary Care Unavailable MADAY TALBOT Admitting Unavailable MADAY TALBOT Attending Unavailable MADAY TALBOT Attending Unavailable OSULLIVAN, NAVEEN A Primary Care Unavailable OSULLIVAN, NAVEEN A Referring Unavailable OSULLIVAN, NAVEEN A Primary Care Unavailable JUAN JOSE HA Attending JUAN JOSE Perez Admitting Regani cresenciole OSULLIVAN, NAVEEN A Referring Unavailable OSULLIVAN, NAVEEN A Primary Care Unavailable VON TOBIAS Attending Unavailable MADAY TALBOT Attending Unavailable OSULLIVAN, NAVEEN A Primary Care Unavailable ZAHORUJKO, TAYLA Referring Unavailable OSULLIVAN, NAVEEN A Referring Unavailable OSULLIVAN, NAVEEN A Primary Care Unavailable MADAY TALBOT Attending Unavailable ОЛЬГА BROWN Attending Unavailable OSULLIVAN, NAVEEN A Primary Care Unavailable SELF, SELF Referring Unavailable MELODY REN Referring Unavailable MELODY REN Attending Unavailable OSULLIVAN, NAVEEN A Primary Care Unavailable GRANT, MELODY Referring Unavailable GRANT, MELODY Attending Unavailable OSULLIVAN, NAVEEN A Primary Care Unavailable CELIO STEVENSON Attending Unavailable OSULLIVAN, NAVEEN A Primary Care Unavailable SELF, SELF Referring Unavailable MADAY TALBOT Attending Unavailable OSULLIVAN, NAVEEN A Primary Care Unavailable ZAHORUJKO, TAYLA Referring Unavailable OSULLIVAN, NAVEEN A Primary Care Unavailable ZAHORUJKO, TAYLA Attending Unavailable ZAHORUJKO, TAYLA Referring Unavailable OSULLIVAN, NAVEEN A Primary Care Unavailable ZAHORUJKO, TAYLA Referring Unavailable ZAHORUJKO, TAYLA Attending Unavailable ZAHORUJKO, TAYLA Referring Unavailable ZAHORUJKO, TAYLA Attending Unavailable OSULLIVAN, NAVEEN A Primary Care Unavailable OSULLIVAN, NAVEEN A Primary Care Unavailable MADAY TALBOT Attending Unavailable MARANDA, NAVEEN A Primary Care Unavailable MADAY TALBOT Admitting Unavailable Allergies Allergy Classification Reported Allergen(s) Allergy Type Date of Onset Reaction(s) Facility (20 sources) Lanolin Drug Allergy 09-29-2008 [facility] (20 sources) nickel sulfate Drug Allergy 12-09-2008 [facility] (20 sources) *Adhesive Tape Propensity to adverse reactions 03-22-2016 [facility] Medications Current Medications Medication Drug Class(es) Dates Sig (Normalized) Sig (Original) Albuterol (20 sources) beta2-Adrenergic Agonist Albuterol Sulfate (PROAIR HFA IN) Inhale 90 mcg as needed. 2 puffs 0 Active apixaban 5 mg oral tablet (20 sources) Factor Xa Inhibitor Start: 02-12-2022 take 1 tablet by mouth every twelve hours Eliquis 5 MG tablet Take 1 tablet by mouth every 12 hours. 0 02/12/2022 Active Calcium Carb-Cholecalcifer ol (OS-JOAQUIN PO) (20 sources) Calcium Carb-Cholecalcife rol (OS-JOAQUIN PO) Take 600 mg by mouth. 0 Active furosemide 40 mg oral tablet (20 sources) Loop Diuretic take 0.5 tablet by mouth twice daily furOSEmide 40 MG Tab Take 0.5 tablets by mouth 2 times daily. 0 Active Completed/Discontinued Medications Medication Drug Class(es) [...] unspecified] Onset: 6 01-30-2016 Chronic Cardiac dysrhythmias (15 sources) Permanent atrial fibrillation; Translations: [Permanent atrial [...] Coronary atherosclerosis; Translations: [Atherosclerotic heart disease of [place] coronary artery without angina pectoris] Onset: 5 [...] aortic (valve) stenosis] Onset: 5 01-30-2016 Chronic Immunizations and screening for infectious disease (1 source) Patient encounter status; Translations: [Encounter for screening for infections with a predominantly sexual mode of transmission] Episodic Occlusion or stenosis of precerebral arteries (20 [...] Other Problems Problem Classification Problem Date Documented Da te Episodic/Chronic Conditions associated with dizziness or vertigo (7 sources) Dizziness; Translations: [Dizziness and giddiness] Onset: 07-01-2022 Episodic Residual codes; unclassified (2 sources) Other [...] mm[Hg] Juan Jose Ha MD Work Phone: [facility] 03-19-2023 12:15-0500 Heart rate 76 /min Juan Jose Ha MD Work Phone: [facility] 03-19-2023 12:15-0500 Respiratory rate 20 /min Juan Jose Ha MD Work Phone: [facility] 03-19-2023 12:15-0500 SaO2% (BldA) [Mass fraction] 96 % Juan Jose Ha MD Work Phone: [facility] 03-19-2023 12:15-0500 Systolic blood pressure 128 mm[Hg] Juan Jose Ha MD Work Phone: [facility] 03-19-2023 06:39-0500 Body height 149.9 cm Juan Jose Ha MD Work Phone: [facility] 03-19-2023 06:39-0500 Body mass index (BMI) [Ratio] 34.91 kg/m2 Juan Jose Ha MD Work Phone: [facility] 03-19-2023 06:39-0500 Body temperature 98.2 [degF] Juan Jose Ha MD Work Phone: [facility] 03-19-2023 06:39-0500 Body weight 78.4 kg Juan Jose Ha MD Work Phone: [facility] 03-05-2023 09:00-0500 Body height 149.9 cm Tayla Zahorujko PAC Work Phone: [facility] 03-05-2023 09:00-0500 Body mass index (BMI) [Ratio] 35.14 kg/m2 Tayla Zahorujko PAC Work Phone: [facility] 03-05-2023 09:00-0500 Body weight 78.93 kg Tayla Zahorujko PAC Work Phone: [facility] 03-05-2023 09:00-0500 Diastolic blood pressure 74 mm[Hg] Tayla Zahorujko PAC Work Phone: [facility] 03-05-2023 09:00-0500 Heart rate 80 /min Tayla Zahorujko PAC Work Phone: [facility] 03-05-2023 09:00-0500 Systolic blood pressure 126 mm[Hg] Tayla Zahorujko PAC Work Phone: [facility] 02-21-2023 15:21-0500 Body height 149.9 cm Von Tobias MD Work Phone: [facility] 02-21-2023 15:21-0500 Body mass index (BMI) [Ratio] 35.14 kg/m2 Von Tobias MD Work Phone: [facility] 02-21-2023 15:21-0500 Body weight 78.93 kg Von Tobias MD Work Phone: [facility] 02-21-2023 15:21-0500 Respiratory rate 14 /min Von Tobias MD Work Phone: [facility] 02-19-2023 11:55-0500 Body height 149.9 cm Tayla Zahorujko PAC Work Phone: [facility] 02-19-2023 11:55-0500 Body mass index (BMI) [Ratio] 35.2 kg/m2 Tayla Zahorujko PAC Work Phone: [facility] 02-19-2023 11:55-0500 Body weight 79.1 kg Tayla Zahorujko PAC Work Phone: [facility] 02-19-2023 11:55-0500 Diastolic blood pressure 78 mm[Hg] Tayla Zahorujko PAC Work Phone: [facility] 02-19-2023 11:55-0500 Systolic blood pressure 146 mm[Hg] Tayla Zahorujko PAC Work Phone: [facility] 02-19-2023 10:26-0500 Body height 149.9 cm Charbel Arteaga MD Work Phone: [facility] 02-19-2023 10:26-0500 Body mass index (BMI) [Ratio] 35.22 kg/m2 Charbel Arteaga MD Work Phone: [facility] 02-19-2023 10:26-0500 Body weight 79.11 kg Charbel Arteaga MD Work Phone: 3(260)052-052434 [place] [address] 02-19-2023 10:26-0500 Diastolic blood pressure 78 mm[Hg] Charbel Arteaga MD Work Phone: 6(832)101-074857 [address] 02-19-2023 10:26-0500 Heart rate 78 /min Charbel Arteaga MD Work Phone: 3(040)782-317257 [address] 02-19-2023 10:26-0500 Systolic blood pressure 146 mm[Hg] Charbel Arteaga MD Work Phone: 0(006)416-334857 [address] 02-03-2023 09:31-0400 Body height 149.9 cm Maday Talbot MD Work Phone: 2(116)749-146990 [address] 02-03-2023 09:31-0400 Body mass index (BMI) [Ratio] 35.39 kg/m2 Maday Talbot MD Work Phone: 3(144)455-396090 [address] 02-03-2023 09:31-0400 Body weight 79.47 kg Maday Talbot MD Work Phone: [facility] 02-03-2023 09:31-0400 Diastolic blood pressure 72 mm[Hg] Maday Talbot MD Work Phone: [facility] 02-03-2023 09:31-0400 Heart rate 70 /min Maday Talbot MD Work Phone: [facility] 02-03-2023 09:31-0400 Systolic blood pressure 141 mm[Hg] Maday Talbot MD Work Phone: 1(120)119-908290 [address] 01-21-2023 13:10-0400 Heart rate 67 /min Maday Talbot MD Work Phone: 5(538)789-424708 [place] [address] 01-21-2023 13:10-0400 Respiratory rate 23 /min Maday Talbot MD Work Phone: 0(144)597-695308 [place] [address] 01-21-2023 13:10-0400 SaO2% (BldA) [Mass fraction] 95 % Maday Talbot MD Work Phone: 8(046)671-674008 [place] [address] 01-21-2023 13:00-0400 Diastolic blood pressure 70 mm[Hg] Maday Talbot MD Work Phone: 9(785)051-846308 [place] [address] 01-21-2023 13:00-0400 Systolic blood pressure 151 mm[Hg] Maday Talbot MD Work Phone: 8(755)212-637508 [place] [address] 01-21-2023 08:45-0400 Body temperature 97.9 [degF] Maday Talbot MD Work Phone: 8(585)658-378708 [place] [address] 10-30-2022 08:36-0400 Body height 149.9 cm Maday Talbot MD Work Phone: 2(488)509-575208 [place] [address] 10-30-2022 08:36-0400 Body mass index (BMI) [Ratio] 36.07 kg/m2 Maday Talbot MD Work Phone: 5(484)929-359708 [place] [address] 10-30-2022 08:36-0400 Body weight 81.01 kg Maday Talbot MD Work Phone: 9(732)020-944108 [place] [address] 10-30-2022 08:36-0400 Diastolic blood pressure 80 mm[Hg] Maday Talbot MD Work Phone: 2(890)092-885608 [place] [address] 10-30-2022 08:36-0400 Heart rate 73 /min Maday Talbot MD Work Phone: 8(602)612-774308 [place] [address] 10-30-2022 08:36-0400 Respiratory rate 20 /min Maday Talbot MD Work Phone: 4(568)697-344908 [place] [address] 10-30-2022 08:36-0400 SaO2% (BldA) [Mass fraction] 97 % Maday Talbot MD Work Phone: 6(831)090-507908 [place] [address] 10-30-2022 08:36-0400 Systolic blood pressure 146 mm[Hg] Maday Talbot MD Work Phone: 0(412)135-811408 [place] [address] 10-30-2022 07:54-0400 Body mass index (BMI) [Ratio] 34.18 kg/m2 Tayla Zahorujko PAC Work Phone: 6(014)812-053008 [place] [address] 10-30-2022 07:54-0400 Body weight 79.38 kg Tayla Zahorujko PAC Work Phone: 1(710)130-617008 [place] [address] 10-30-2022 07:54-0400 Diastolic blood pressure 72 mm[Hg] Tayla Zahorujko PAC Work Phone: 6(512)284-778908 [place] [address] 10-30-2022 07:54-0400 Heart rate 63 /min Tayla Zahorujko PAC Work Phone: 2(528)291-479008 [place] [address] 10-30-2022 07:54-0400 Systolic blood pressure 158 mm[Hg] Tayla Zahorujko PAC Work Phone: 8(850)283-460108 [place] [address] 09-11-2022 12:03-0400 Body height 152.4 cm Maday Talbot MD Work Phone: 3(654)447-224708 [place] [address] 09-11-2022 12:03-0400 Body mass index (BMI) [Ratio] 34.43 kg/m2 Maday Talbot MD Work Phone: 7(937)257-376108 [place] [address] 09-11-2022 12:03-0400 Body temperature 97.9 [degF] Maday Talbot MD Work Phone: 3(626)648-579508 [place] [address] 09-11-2022 12:03-0400 Body weight 79.97 kg Maday Talbot MD Work Phone: 0(107)413-612008 [place] [address] 09-11-2022 12:03-0400 Diastolic blood pressure 92 mm[Hg] Maday Talbot MD Work Phone: [facility] 09-11-2022 12:03-0400 Heart rate 103 /min Maday Talbot MD Work Phone: [facility] 09-11-2022 12:03-0400 SaO2% (BldA) [Mass fraction] 95 % Maday Talbot MD Work Phone: [facility] 09-11-2022 12:03-0400 Systolic blood pressure 167 mm[Hg] Maday Talbot MD Work Phone: [facility] 08-20-2022 14:44-0400 Body height 152.4 cm Celio Stevenson MD Work Phone: [facility] 08-20-2022 14:44-0400 Body mass index (BMI) [Ratio] 34.18 kg/m2 Celio Stevenson MD Work Phone: [facility] 08-20-2022 14:44-0400 Body weight 79.38 kg Celio Stevenson MD Work Phone: [facility] 08-20-2022 14:44-0400 Heart rate 82 /min Celio Stevenson MD Work Phone: [facility] 08-20-2022 14:44-0400 SaO2% (BldA) [Mass fraction] 96 % Celio Stevenson MD Work Phone: [facility] 07-01-2022 17:49-0400 Diastolic blood pressure 79 mm[Hg] Melody Ren MD Work Phone: [facility] 07-01-2022 17:49-0400 Heart rate 97 /min Melody Ren MD Work Phone: [facility] 07-01-2022 17:49-0400 Systolic blood pressure 178 mm[Hg] Melody Ren MD Work Phone: 6(772)123-483329 [address] 07-01-2022 17:47-0400 Body height 152.4 cm Melody Ren MD Work Phone: 3(353)230-621444 [place] [address] 06-05-2022 15:01-0500 Body height 152.4 cm Melody Ren MD Work Phone: 4(886)998-051644 [place] [address] 06-05-2022 15:01-0500 Diastolic blood pressure 79 mm[Hg] Melody Ren MD Work Phone: 0(430)817-047044 [place] [address] 06-05-2022 15:01-0500 Heart rate 86 /min Melody Ren MD Work Phone: 4(449)962-902044 [place] [address] 06-05-2022 15:01-0500 Systolic blood pressure 180 mm[Hg] Melody Ren MD Work Phone: 8(016)890-562344 [place] [address] 04-25-2022 13:12-0500 Body height 152.4 cm Melody Ren MD Work Phone: 9(318)812-109244 [place] [address] 04-25-2022 13:12-0500 Body mass index (BMI) [Ratio] 34.65 kg/m2 Melody Ren MD Work Phone: 7(673)145-168244 [place] [address] 04-25-2022 13:12-0500 Body weight 80.47 kg Melody Ren MD Work Phone: 4(365)402-294844 [place] [address] 04-25-2022 13:12-0500 Diastolic blood pressure 72 mm[Hg] Melody Ren MD Work Phone: 7(963)741-953944 [place] [address] 04-25-2022 13:12-0500 Heart rate 80 /min Melody Ren MD Work Phone: 4(318)248-550044 [place] [address] 04-25-2022 13:12-0500 Systolic blood pressure 138 mm[Hg] Melody Ren MD Work Phone: 8(772)351-916944 [place] [address] 09-05-2021 14:41-0400 Body height 152.4 cm Maday Talbot MD Work Phone: [facility] 09-05-2021 14:41-0400 Body mass index (BMI) [Ratio] 32.22 kg/m2 Maday Talbot MD Work Phone: [facility] 09-05-2021 14:41-0400 Body weight 74.84 kg Maday Talbot MD Work Phone: [facility] 09-05-2021 14:41-0400 Diastolic blood pressure 71 mm[Hg] Maday Talbot MD Work Phone: [facility] 09-05-2021 14:41-0400 Heart rate 79 /min Maday Talbot MD Work Phone: [facility] 09-05-2021 14:41-0400 SaO2% (BldA) [Mass fraction] 98 % Maday Talbot MD Work Phone: [facility] 09-05-2021 14:41-0400 Systolic blood pressure 126 mm[Hg] Maday Talbot MD Work Phone: [facility] Encounters Encounter Date Encounter Type Care Provider Facility Start: 04-15-2023 Evaluation and management of inpatient NAVEEN Dylan COMMERCE Facility:[facility] Start: 04-14-2023 ambulatory [facility] Dylan COMMERCE Facility:[facility] Start: 04-10-2023 Telephone encounter Larisa Brooks RN [facility] [place] Procedures Date Procedure Procedure Detail Performing Clinician Start: 04-14-2023 Follow-up visit Follow-up MADAY TALBOT Start: 03-19-2023 Cath placement & njx coronary art angio img s&i Maday Talbot MD Work Phone: Start: 03-19-2023 Cardiac catheterization Maday Talbot MD Work Phone: Start: 03-19-2023 Ecg routine ecg w/least 12 lds w/i&r Swapnil Gilmore MD Start: 03-05-2023 Myocardial spect multiple studies Maday Talbot MD Work Phone: Start: 02-19-2023 History of coronary artery bypass grafting Hx of coronary artery bypass graft Charbel Arteaga MD Work Phone: Start: 02-19-2023 Echo tthrc r-t 2d w/wom-mode compl spec&colr d Maday Talbot MD Work Phone: Start: 01-21-2023 End: 01-21-2023 Antibody screen Maday Talbot MD Work Phone: Plan of Treatment Date Care Activity Detail Author Start: 08-21-2031 Tetanus vaccination TETANUS [facility] Start: 10-31-2023 Potassium [Moles/volume] in Serum or Plasma POTASSIUM [facility] Start: 05-28-2023 End: 05-28-2023 Patient encounter procedure [facility] [place] Start: 04-25-2023 Thyroid stimulating hormone measurement TSH [facility] Start: 04-14-2023 End: 04-14-2023 Patient encounter procedure 04/14/2023 1:30 PM EST Office Visit [facility] [address] [place] [address] Maday Talbot MD [address] [place] [address] [address] [place] [address] [facility] [place] Start: 03-24-2023 End: 03-24-2024 Basic metabolic 2000 panel - Serum or Plasma BASIC METABOLIC PANEL Lab Routine Coronary artery disease involving [place] coronary artery of [place] heart without angina 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), bioprosthetic Permanent atrial fibrillation Essential hypertension Expected: 03/24/2023, Expires: 03/24/2024 [facility] Immunizations Immunization Date Immunization Notes Care Provider Fa cility 02-01-2022 Influenza Vaccine, Quadrivalent, Adjuvanted Melody Ren MD Work Phone: [facility] 02-01-2022 influenza virus vacc ine, unspecified formulation Maday Talbot MD Work Phone: [facility] 08-20-2021 COVID-19 vaccine, Michael Hodges, 50 mcg/0.25 mL booster Melody Ren MD Work Phone: [facility] 08-20-2021 tetanus toxoid, redu jens diphtheria toxoid, and acellular pertussis vaccine, adsorbed Melody Ren MD Work Phone: [facility] 03-02-2021 COVID-19 vaccine, Michael Hodges, 50 mcg/0.25 mL booster Melody Ren MD Work Phone: 5(692)220-482229 [address] 02-19-2021 Influenza Vaccine, Quadrivalent, Adjuvanted Melody Ren MD Work Phone: [facility] 06-28-2020 hepatitis A vaccine, adult dosage Melody Ren MD Work Phone: [facility] 05-26-2020 COVID-19 vaccine, Michael Hodges, 100 mcg/0.5 mL Melody Ren MD Work Phone: 5(117)875-805029 [address] 05-08-2020 COVID-19 vaccine, Michael Hodges, 100 mcg/0.5 mL Melody Ren MD Work Phone: [facility] 04-28-2020 COVID-19 vaccine, Michael Hodges, 100 mcg/0.5 mL Melody Ren MD Work Phone: 5(966)152-999229 [address] 04-07-2020 COVID-19 vaccine, Michael Hodges, 100 mcg/0.5 mL Melody Ren MD Work Phone: [facility] 02-21-2020 zoster vaccine recombinant Melody Ren MD Work Phone: [facility] 10-29-2019 hepatitis A vaccine, adult dosage Melody Ren MD Work Phone: [facility] 10-29-2019 zoster vaccine recombinant Melody Ren MD Work Phone: [facility] 01-07-2018 influenza, injectabl e, quadrivalent, contains preservative Melody Ren MD Work Phone: [facility] 01-06-2018 influenza, high dose seasonal, preservative-free Melody Ren MD Work Phone: [facility] 01-03-2017 influenza, injectabl e, quadrivalent, contains preservative Melody Ren MD Work Phone: [facility] 01-06-2016 influenza virus vacc ine, unspecified formulation Maday Talobt MD Work Phone: [facility] 01-04-2016 influenza, seasonal, injectable Melody Ren MD Work Phone: [facility] 02-05-2014 pneumococcal conjuga te vaccine, 13 valent Melody Ren MD Work Phone: [facility] 08-05-2005 pneumococcal polysaccharide vaccine, 23 valent Melody Ren MD Work Phone: [facility] Payers Date Payer Category Payer Medicare MEDICARE [employer] HMO PPO MEDICARE [employer] HMO PPO [id number] 2017-Present [address] [address] [place] [address] [id number] 2017 Medicare [id number] 1940 Unknown [id number] 1940 Unknown [id number] 1939 Unknown [id number] 1939 Unknown [id number] 1939 Unknown [id number] 1939 Unknown [id number] [id number] 1939 Unknown [id number] [id number] 1939 Unknown [id number] [id number] 1939 Unknown [id number] [id number] 1939 Unknown [id number] [id number] 1939 Unknown [id number] [id number] 1939 Unknown [id number] [id number] 1939 Unknown [id number] [id number] 1939 Unknown [id number] [id number] 1939 Unknown [id number] [id number] 1939 Unknown [id number] [id number] 1939 Unknown [id number] [id number] 1939 Unknown [id number] [id number] 1939 Unknown [id number] [id number] 1939 Unknown [id number] Social History Date Type Detail Facility Start: 01-15-2016 End: 02-19-2023 Tobacco smoking status NHIS Ex-smoker [facility] Start: 1956 End: 04-07-2003 History of tobacco use Current smoker [facility] Start: 1956 End: 04-07-2003 History of tobacco use Cigarette Smoker [facility] Start: 01-15-2016 End: 04-14-2023 Cigarettes smoked current (pack per day) - Reported 1 [facility] Start: 01-15-2016 End: 02-19-2023 Tobacco use and exposure Smokeless tobacco non-user [facility] Start: 09-05-2021 End: 03-19-2023 Alcohol intake Current drinker of alcohol (finding) [facility] Start: 12-09-2008 History SDOH Alcohol Comment occasionally [facility] Start: 02-09-2015 End: 04-25-2022 Tobacco Comment quit 11 years ago [facility] Start: 1940 Sex Assigned At Not on file [facility] Start: 03-03-2022 End: 04-25-2022 Exposure to SARS-CoV-2 (event) Unable to assess [facility] Start: 04-25-2022 Alcohol Comment Wine with dinn er once in awhile [facility] Start: 05-26-2022 End: 06-05-2022 Exposure to SARS-CoV-2 (event) Not sure [facility] Start: 09-11-2022 End: 04-14-2023 Tobacco use panel [facility] Gender identity Identifies as fe male gender (finding) [facility] Medical Equipment Procedure Code Equipment Code Equipment Origin al Text Equipment Identifier Dates Nichole Starr 57cm - [id number] Start: 02-01-2016 [address] - [id number] Start: 01-31-2016 Clinical Notes 09-05-2021 to 04-15-2023 Telephone Encounter - Vanessa Ruggiero RN - 04/15/2023 3:02 PM ESTTelephone Encounter - Vanessa Ruggiero RN - 04/15/2023 3:02 PM ESTTelephone Encounter - Vanessa Ruggiero RN - 04/15/2023 2:27 PM EST Note Date & Type Note Facility 04-15-2023 Telephone encounter Note Faxed lab order [facility] 04-15-2023 Miscellaneous Notes Faxed lab order MALINA patent's daughter, Silvestre. Will fax lab orders to [facility]. Silvestre wants to know if patient can start cardiac rehab in [place]. After labs ordered will need faxed to [phone] outpatient lab. Images from the original note were not included. Charbel Arteaga MD You21 hours ago (4:23 PM) Plan: continue the furosemide / lasix at 20 mg po bid and the K supplement at 10 mEq po BID; monitor symptoms / findings; obtain a chem 6 on with results to this office. Thank you. SW patient's daughter Silvestre, gave Dr Arteaga's recommendations. Images from the original note were not included. Charbel Arteaga MD You14 minutes ago (1:10 PM) Patient update noted. Plan: ask the patient to take her furosemide / lasix at 20 mg po BID and her potassium supplement 10 mEq po BID today through Friday of 04/14/23 and provide an update on her symptoms with respect to her breathing and volume status with respect to her lower extremity edema. Thank you. Images from the original note were not included. Outside Labs: Received: Yesterday Charbel Arteaga MD [facility] Pool Outside labs noted: K of 3.5 and BUN/Cr of 28/0.95. Please check on the patient with respect to any ongoing symptoms / concerns - especially volume related - which will help guide further care. Spoke with pt's daughter Silvestre. Reports Dot is currently not feeling well - being treated by Corporate Librarian for an URI with prednisone and antibiotic. Denies reports being hard to tell what is cardiac versus lung concerns. Does say she's breathing better since being treated for the URI, with no wheezing. Denies swelling. She continues to take the 40 mg lasix daily. Daughter is unsure if she is taking any of the potassium supplement as it's ordered as needed. She will follow up with a [employer] message when she gets home. Pt is interested in cardiac rehab. documented in this encounter [facility] 04-15-2023 Telephone encounter Note SW cherie's daughter, Silvestre. Will fax lab orders to [facility]. Silvestre wants to know if patient can start cardiac rehab in [place]. After labs ordered will need faxed to [phone], [facility] Tele[facility] encounter Note Images from the original note were not included. Charbel Arteaga MD You21 hours ago (4:23 PM) Plan: continue the furosemide / lasix at 20 mg po bid and the K supplement at 10 mEq po BID; monitor symptoms / findings; obtain a chem 6 on with results to this office. Thank you. [facility] 04-11-2023 Telephone encounter Note SW patient's daughter Silvestre, gave Dr Arteaga's recommendations. [facility] 04-11-2023 Miscellaneous Notes SW patient's daughter Silvestre, gave Dr Arteaga's recommendations. Images from the original note were not included. Charbel Arteaga MD You14 minutes ago (1:10 PM) Patient update noted. Plan: ask the patient to take her furosemide / lasix at 20 mg po BID and her potassium supplement 10 mEq po BID today through Friday of 04/14/23 and provide an update on her symptoms with respect to her breathing and volume status with respect to her lower extremity edema. Thank you. Images from the original note were not included. Outside Labs: Received: Yesterday Charbel Arteaga MD [facility] T[facility] Pool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 [facility] [address] [place] [address] Referring Provider Cardiovascular Disease 12/18/15 Larisa Jean, RN Registered Nurse 03/05/16 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 Specialty Start Date End Date Noe Rodriguez MD [address] [place] [address] PCP - Referring 1 Cardiovascular Disease 02/07/16 Naveen Osullivan MD [address] [place] [address] PCP - General Family Medicine 03/22/16 Noe Rodriguez MD [facility] [address] [address] [place] [address] Referring Provider Cardiovascular Disease 12/18/15 Larisa Jean, RN Registered Nurse 03/05/16 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 Specialty Start Date End Date Noe Rodriguez MD [address] [place] [address] PCP - Referring 1 Cardiovascular Disease 02/07/16 Naveen Osullivan MD [address] [place] [facility] [address] PCP - General Family Medicine 03/22/16 Noe Rodriguez MD [address] [facility] [address] [place] [address] Referring Provider Cardiovascular Disease 12/18/15 Larisa Jean RN Registered Nurse 03/05/16 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 Specialty Start Date End Date Noe Rodriguez MD [address] [place] [address] PCP - Referring 1 Cardiovascular Disease 02/07/16 Naveen Osullivan MD [address] [facility] [place] [address] PCP - General Family Medicine 03/22/16 Noe Rodriguez MD [facility] [address] [address] [place] [address] Referring Provider Cardiovascular Disease 12/18/15 Larisa Jean, RN Registered Nurse 03/05/16 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 Specialty Start Date End Date Noe Rodriguez MD [address] [place] [address] PCP - Referring 1 Cardiovascular Disease 02/07/16 Naveen Osullivan MD [address] [place] [address] PCP - General Family Medicine 03/22/16 Noe Rodriguez MD [address] [facility] [address] [place] [address] Referring Provider Cardiovascular Disease 12/18/15 Larisa Jean, RN Registered Nurse 03/05/16 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 Specialty Start Date End Date Noe Rodriguez MD [address] [place] [address] PCP - Referring 1 Cardiovascular Disease 02/07/16 Naveen Osullivan MD [address] [place] [address] PCP - General Family Medicine 03/22/16 Noe Rodriguez MD [address] [facility] [address] [place] [address] Referring Provider Cardiovascular Disease 12/18/15 Larisa Jean, RN Registered Nurse 03/05/16 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 Specialty Start Date End Date Noe Rodriguez MD [address] [place] [address] PCP - Referring 1 Cardiovascular Disease 02/07/16 Naveen Osullivan MD [address] [place] [address] PCP - General Family Medicine 03/22/16 Noe Rodriguez MD [address] [facility] [address] [place] [address] Referring Provider Cardiovascular Disease 12/18/15 Larisa Jean, RN Registered Nurse 03/05/16 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 Specialty Start Date End Date Noe Rodriguez MD [address] [place] [address] PCP - Referring 1 Cardiovascular Disease 02/07/16 Naveen Osullivan MD [address] [place] [address] PCP - General Family Medicine 03/22/16 Noe Rodriguez MD [address] [facility] [address] [place] [address] Referring Provider Cardiovascular Disease 12/18/15 Larisa Jean RN Registered Nurse 03/05/16 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 Specialty Start Date End Date Noe Rodriguez MD [address] [place] [address] PCP - Referring 1 Cardiovascular Disease 02/07/16 Naveen Osullivan MD [address] [place] [facility] [address] PCP - General Family Medicine 03/22/16 Noe Rodriguez MD [address] [facility] [address] [place] [address] Referring Provider Cardiovascular Disease 12/18/15 Larisa Jean, RN Registered Nurse 03/05/16 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 Specialty Start Date End Date Noe Rodriguez MD [address] [place] [address] PCP - Referring 1 Cardiovascular Disease 02/07/16 Naveen Osullivan MD [address] [place] [address] PCP - General Family Medicine 03/22/16 Noe Rodriguez MD [address] [facility] [address] [place] [address] Referring Provider Cardiovascular Disease 12/18/15 Larisa Jean, RN Registered Nurse 03/05/16 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 Specialty Start Date End Date Noe Rodriguez MD [address] [place] [address] PCP - Referring 1 Cardiovascular Disease 02/07/16 Naveen Osullivan MD [address] [place] [address] PCP - General Family Medicine 03/22/16 Noe Rodriguez MD [address] [facility] [address] [place] [address] Referring Provider Cardiovascular Disease 12/18/15 Larisa Jean, RN Registered Nurse 03/05/16 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 Specialty Start Date End Date Noe Rodriguez MD [address] [place] [address] PCP - Referring 1 Cardiovascular Disease 02/07/16 Naveen Osullivan MD [address] [place] [address] PCP - General Family Medicine 03/22/16 Noe Rodriguez MD [address] [facility] [address] [place] [address] Referring Provider Cardiovascular Disease 12/18/15 Larisa Jean, RN Registered Nurse 03/05/16 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 Specialty Start Date End Date Noe Rodriguez MD [address] [place] [address] PCP - Referring 1 Cardiovascular Disease 02/07/16 Naveen Osullivan MD [address] [place] [address] PCP - General Family Medicine 03/22/16 Noe Rodriguez MD [address] [facility] [address] [place] [address] Referring Provider Cardiovascular Disease 12/18/15 Larisa Jean, RN Registered Nurse 03/05/16 03/05/23 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 Specialty Start Date End Date Noe Rodriguez MD [address] [place] [address] PCP - Referring 1 Cardiovascular Disease 02/07/16 Naveen Osullivan MD [address] [facility] [place] [address] PCP - General Family Medicine 03/22/16 Noe Rodriguez MD [address] [facility] [address] [place] [address] Referring Provider Cardiovascular Disease 12/18/15 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 Specialty Start Date End Date Noe Rodriguez MD [address] [place] [address] PCP - Referring 1 Cardiovascular Disease 02/07/16 Naveen Osullivan MD [address] [place] [address] PCP - General Family Medicine 03/22/16 Noe Rodriguez MD [address] [facility] [address] [place] [address] Referring Provider Cardiovascular Disease 12/18/15 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 Specialty Start Date End Date Noe Rodriguez MD [address] [place] [address] PCP - Referring 1 Cardiovascular Disease 02/07/16 Naveen Osullivan MD [address] [place] [address] PCP - General Family Medicine 03/22/16 Noe Rodriguez MD [address] [facility] [address] [address] [place] [address] Referring Provider Cardiovascular Disease 12/18/15 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 Specialty Start Date End Date Noe Rodriguez MD [address] [place] [address] PCP - Referring 1 Cardiovascular Disease 02/07/16 Naveen Osullivan MD [address] [place] [address] PCP - General Family Medicine 03/22/16 Noe Rodriguez MD [address] [facility] [place] [address] Referring Provider Cardiovascular Disease 12/18/15 Scheduled Active [...] 0845, Intra-op/Intra-Proc 0747 (Given - Provid er: Maday Talbot MD - Comment: Given to sterile field) iodixanol (VISIPAQUE) injection 320 mg/mL for [facility] IR (CANCELED) NEEDED, Starting on Fri01/21/23 at 0823, Until Fri01/21/23 at 0845, Intra-op/Intra-Proc 08 (Given - Provid er: Maday Talbot MD) Lidocaine (XYLOCAINE) 10 mg/mL injection (CANCELED) NEEDED, Starting on Fri01/21/23 at 0747, Until Fri01/21/23 at 0845, Intra-op/Intra-Proc 0747 (Given - Provid er: Maday Talbot MD - Comment: Given to sterile [...] Intra-op/Intra-Proc 0843 (Given - Provid er: Vandana Abilio, RN) iodixanol (VISIPAQUE) injection 320 mg/mL for [...] BE BASED ON THE PRIMARY CLINICAL RECORDS. [employer] provides no warranty or guarantee of the accuracy or completeness of information in this document.
[2023-05-03 14:08] LABS: Reflex Troponin-HS? (from REC) Y
[2023-05-03 14:41] LABS: Troponin-I HS 85 pg/mL (3.0-54.0)
== END 2023-05-03 15:19 | disposition home or self-care (01) ==
PROVIDERS: Physician Assistant; Emergency Provider Emergency Medicine; PCP Family Medicine; Visit Provider Emergency Medicine
DX: R07.89 Other chest pain (principal); J44.9 Chronic obstructive pulmonary disease, unspecified; I11.0 Hypertensive heart disease with heart failure; I50.9 Heart failure, unspecified; I48.19 Other persistent atrial fibrillation; Z95.2 Presence of prosthetic heart valve; I25.10 Atherosclerotic heart disease of native coronary artery without angina pectoris; Z87.891 Personal history of nicotine dependence; E78.5 Hyperlipidemia, unspecified; Z95.1 Presence of aortocoronary bypass graft; Z79.899 Other long term (current) drug therapy; Z79.01 Long term (current) use of anticoagulants; I25.2 Old myocardial infarction; E03.9 Hypothyroidism, unspecified; Z79.82 Long term (current) use of aspirin; K21.9 Gastro-esophageal reflux disease without esophagitis; Z95.3 Presence of xenogenic heart valve; Z90.710 Acquired absence of both cervix and uterus; Z90.49 Acquired absence of other specified parts of digestive tract; Z95.5 Presence of coronary angioplasty implant and graft; R06.00 Dyspnea, unspecified
CPT/HCPCS: 71045; 80048; 83880; 84484; 85025; 93005; 99284; A4216

== ENCOUNTER → 2023-05-08 | Outpatient (CLI) | payer MEDICARE, SELFPAY ==
--- NOTE | 2023-05-08 12:43 | RAD_ITS ---
STUDY: X-RAY CHEST REASON FOR EXAM: Female, 82 years old. Cough and shortness of breath. TECHNIQUE: PA and lateral views of the chest. COMPARISON: Comparison is made with prior examination dated May 03, 2023. FINDINGS: Stable pleural parenchymal changes at the left lung base. Sternal cerclage wires and vascular clips are present from a prior sternotomy and coronary artery bypass graft procedure (CABG). There is evidence of prior aortic valve replacement. Normal mediastinum and memo. Normal visualized pulmonary arteries. There is atherosclerotic tortuosity of the aortic arch and descending thoracic aorta. There is demineralization of the osseous structures. Increased kyphosis. Calcific tendinitis of the right shoulder. There is no demonstrated abnormality of the visualized soft tissue structures of the upper abdomen. RAD/Chest PA and Lateral IMPRESSION: Stable pleuroparenchymal changes at the left lung base. Prior CABG and aortic valve replacement. Electronically Signed: Tavon Bermudez MD at 13:24 EST ,
[2023-05-08 12:44] LABS: Hematocrit 42.3 % (37-47); Hemoglobin 13.5 g/dL (12.0-15.0); Mean Corp Hgb Conc 31.9 g/dL (32-36); Mean Corpuscular Hgb 30.5 pg (27.0-32.0); Mean Corpuscular Volume 95.7 fL (81-99); Mean Platelet Vol. 13.1 fl (6.2-12.0); Platelet Count 133 K/mm3 (150-450); RBC Distribution Width CV 14.6 % (11.6-14.6); RBC Distribution Width SD 51.3 fl (35.1-43.9); Red Blood Count 4.42 M/mm3 (4.2-5.4); White Blood Count 6.4 K/mm3 (4.4-11.0)
[2023-05-08 13:08] LABS: Anion Gap 4 (5-15); BUN 18 mg/dL (7-18); BUN/Creat Ratio 14.2 RATIO (10-20); Calcium,Total 9.1 mg/dL (8.5-10.1); Chloride 106 mmol/L (98-107); Creatinine, Serum 1.27 mg/dL (0.55-1.02); EST Glomerular Filtration Rate 43 mL/min (>60); Est Glom Filt Rate - Afr Amer 52 mL/min (>60); Glucose 145 mg/dL (74-106); Potassium 3.9 mmol/L (3.5-5.1); Sodium Level 139 mmol/L (136-145)
[2023-05-08 13:09] LABS: BNP,B-Type NATRIURETIC PEPTIDE 74.2 pg/mL (0-100)
== END | disposition home or self-care (01) ==
LOC: LAB 12:23
PROVIDERS: PCP Family Medicine; Referring Provider Nurse Practitioner Acute Care; Visit Provider Nurse Practitioner Acute Care
DX: R06.00 Dyspnea, unspecified (principal)
CPT/HCPCS: 36415; 71046; 80048; 83880; 85027

== ENCOUNTER → 2023-05-16 | Outpatient (CLI) | payer MEDICARE, SELFPAY ==
--- OUTSIDE RECORDS SUMMARY | 2023-05-16 09:36 | XMS RPT_ITS | CCD ---
Author Name Unknown Address [id number] [place] [address] Organization [facility] Care Team Providers Care Soda Dispenser Name Role Phone Noe Rodriguez MD Unavailable [phone] Noe Rodriguez MD Unavailable [phone] Miranda DE LUNA, Larisa Unavailable Unavailable Naveen Osullivan MD Primary Care Provider [phone] Noe Rodriguez MD Unavailable [phone] Noe Rodriguez MD Unavailable [phone] Naveen Osullivan MD A Primary Care Provider [...] Primary Care Unavailable MADAY TALBOT Attending Unavailable MARADNA, NAVEEN A Primary Care Unavailable MADAY TALBOT Admitting Unavailable Allergies Allergy Classification Reported Allergen(s) Allergy Type Date of Onset Reaction(s) Facility (20 sources) Lanolin Drug Allergy 09-29-2008 [facility] (20 sources) nickel sulfate Drug Allergy 12-09-2008 [facility] (20 sources) *Adhesive Tape Propensity to adverse reactions 03-22-2016 [facility] Medications Current Medications Medication Drug Class(es) [...] Coronary atherosclerosis; Translations: [Atherosclerotic heart disease of [place] coronary artery without angina pectoris] Onset: 5 [...] mm[Hg] Juan Jose Ha MD Work Phone: [facility] 03-19-2023 12:15-0500 Heart rate 76 /min Juan Jose Ha MD Work Phone: [facility] 03-19-2023 12:15-0500 Respiratory rate 20 /min Juan Jose Ha MD Work Phone: [facility] 03-19-2023 12:15-0500 SaO2% (BldA) [Mass fraction] 96 % Juan Jose Ha MD Work Phone: [facility] 03-19-2023 12:15-0500 Systolic blood pressure 128 mm[Hg] Juan Jose Ha MD Work Phone: [facility] 03-19-2023 06:39-0500 Body height 149.9 cm Juan Jose Ha MD Work Phone: [facility] 03-19-2023 06:39-0500 Body mass index (BMI) [Ratio] 34.91 kg/m2 Juan Jose Ha MD Work Phone: [facility] 03-19-2023 06:39-0500 Body temperature 98.2 [degF] Juan Jose Ha MD Work Phone: [facility] 03-19-2023 06:39-0500 Body weight 78.4 kg Juan Jose Ha MD Work Phone: [facility] 03-05-2023 09:00-0500 Body height 149.9 cm Tayla Zahorujko PAC Work Phone: [facility] 03-05-2023 09:00-0500 Body mass index (BMI) [Ratio] 35.14 kg/m2 Atyla Zahorujko PAC Work Phone: [facility] 03-05-2023 09:00-0500 Body weight 78.93 kg Tayla Zahorujko PAC Work Phone: [facility] 03-05-2023 09:00-0500 Diastolic blood pressure 74 mm[Hg] Tayla Zahorujko PAC Work Phone: [facility] 03-05-2023 09:00-0500 Heart rate 80 /min Tayla Zahorujko PAC Work Phone: [facility] 03-05-2023 09:00-0500 Systolic blood pressure 126 mm[Hg] Tayla Zahorujko PAC Work Phone: [facility] 02-21-2023 15:21-0500 Body height 149.9 cm Von Tobias MD Work Phone: [facility] 02-21-2023 15:21-0500 Body mass index (BMI) [Ratio] 35.14 kg/m2 Von Tobias MD Work Phone: [facility] 02-21-2023 15:21-0500 Body weight 78.93 kg Von Tobias MD Work Phone: [facility] 02-21-2023 15:21-0500 Respiratory rate 14 /min Von Tobias MD Work Phone: [facility] 02-19-2023 11:55-0500 Body height 149.9 cm Tayla Zahorujko PAC Work Phone: [facility] 02-19-2023 11:55-0500 Body mass index (BMI) [Ratio] 35.2 kg/m2 Tayla Zahorujko PAC Work Phone: [facility] 02-19-2023 11:55-0500 Body weight 79.1 kg Tayla Zahorujko PAC Work Phone: [facility] 02-19-2023 11:55-0500 Diastolic blood pressure 78 mm[Hg] Tayla Zahorujko PAC Work Phone: [facility] 02-19-2023 11:55-0500 Systolic blood pressure 146 mm[Hg] Tayla Zahorujko PAC Work Phone: [facility] 02-19-2023 10:26-0500 Body height 149.9 cm Charbel Arteaga MD Work Phone: [facility] 02-19-2023 10:26-0500 Body mass index (BMI) [Ratio] 35.22 kg/m2 Charbel Arteaga MD Work Phone: [facility] 02-19-2023 10:26-0500 Body weight 79.11 kg Charbel Arteaga MD Work Phone: 2(304)866-006676 [place] [address] 02-19-2023 10:26-0500 Diastolic blood pressure 78 mm[Hg] Charbel Arteaga MD Work Phone: 4(684)880-631459 [address] 02-19-2023 10:26-0500 Heart rate 78 /min Charbel Arteaga MD Work Phone: 4(625)832-299459 [address] 02-19-2023 10:26-0500 Systolic blood pressure 146 mm[Hg] Charbel Arteaga MD Work Phone: 6(225)403-043459 [address] 02-03-2023 09:31-0400 Body height 149.9 cm Maday Talbot MD Work Phone: 4(085)895-692951 [address] 02-03-2023 09:31-0400 Body mass index (BMI) [Ratio] 35.39 kg/m2 Maday Talbot MD Work Phone: 3(924)208-988151 [address] 02-03-2023 09:31-0400 Body weight 79.47 kg Maday Talbot MD Work Phone: [facility] 02-03-2023 09:31-0400 Diastolic blood pressure 72 mm[Hg] Maday Talbot MD Work Phone: [facility] 02-03-2023 09:31-0400 Heart rate 70 /min Maday Talbot MD Work Phone: [facility] 02-03-2023 09:31-0400 Systolic blood pressure 141 mm[Hg] Maday Talbot MD Work Phone: 0(478)962-931551 [address] 01-21-2023 13:10-0400 Heart rate 67 /min Maday Talbot MD Work Phone: 5(296)289-588741 [place] [address] 01-21-2023 13:10-0400 Respiratory rate 23 /min Maday Talbot MD Work Phone: 4(549)355-268441 [place] [address] 01-21-2023 13:10-0400 SaO2% (BldA) [Mass fraction] 95 % Maday Talbot MD Work Phone: 3(378)260-911941 [place] [address] 01-21-2023 13:00-0400 Diastolic blood pressure 70 mm[Hg] Maday Talbot MD Work Phone: 4(534)018-081041 [place] [address] 01-21-2023 13:00-0400 Systolic blood pressure 151 mm[Hg] Maday Talbot MD Work Phone: 6(642)541-775241 [place] [address] 01-21-2023 08:45-0400 Body temperature 97.9 [degF] Maday Talbot MD Work Phone: 1(166)284-943941 [place] [address] 10-30-2022 08:36-0400 Body height 149.9 cm Maday Talbot MD Work Phone: 2(209)638-046141 [place] [address] 10-30-2022 08:36-0400 Body mass index (BMI) [Ratio] 36.07 kg/m2 Maday Talbot MD Work Phone: 8(363)165-213541 [place] [address] 10-30-2022 08:36-0400 Body weight 81.01 kg Maday Talbot MD Work Phone: 2(146)593-252741 [place] [address] 10-30-2022 08:36-0400 Diastolic blood pressure 80 mm[Hg] Maday Talbot MD Work Phone: 4(269)724-817141 [place] [address] 10-30-2022 08:36-0400 Heart rate 73 /min Maday Talbot MD Work Phone: 6(956)942-539341 [place] [address] 10-30-2022 08:36-0400 Respiratory rate 20 /min Maday Talbot MD Work Phone: 1(514)212-827841 [place] [address] 10-30-2022 08:36-0400 SaO2% (BldA) [Mass fraction] 97 % Maday Talbot MD Work Phone: 6(989)569-447441 [place] [address] 10-30-2022 08:36-0400 Systolic blood pressure 146 mm[Hg] Maday Talbot MD Work Phone: 8(386)825-897141 [place] [address] 10-30-2022 07:54-0400 Body mass index (BMI) [Ratio] 34.18 kg/m2 Tayla Zahorujko PAC Work Phone: 3(861)213-240441 [place] [address] 10-30-2022 07:54-0400 Body weight 79.38 kg Tayla Zahorujko PAC Work Phone: 4(263)201-507641 [place] [address] 10-30-2022 07:54-0400 Diastolic blood pressure 72 mm[Hg] Tayla Zahorujko PAC Work Phone: 5(408)926-993241 [place] [address] 10-30-2022 07:54-0400 Heart rate 63 /min Tayla Zahorujko PAC Work Phone: 6(710)709-484141 [place] [address] 10-30-2022 07:54-0400 Systolic blood pressure 158 mm[Hg] Tayla Zahorujko PAC Work Phone: 2(791)573-717141 [place] [address] 09-11-2022 12:03-0400 Body height 152.4 cm Maday Talbot MD Work Phone: 5(957)246-787841 [place] [address] 09-11-2022 12:03-0400 Body mass index (BMI) [Ratio] 34.43 kg/m2 Maday Talbot MD Work Phone: 9(602)356-154641 [place] [address] 09-11-2022 12:03-0400 Body temperature 97.9 [degF] Maday Talbot MD Work Phone: 6(171)770-495241 [place] [address] 09-11-2022 12:03-0400 Body weight 79.97 kg Maday Talbot MD Work Phone: 1(345)599-192741 [place] [address] 09-11-2022 12:03-0400 Diastolic blood pressure 92 mm[Hg] Maday Talbot MD Work Phone: [facility] 09-11-2022 12:03-0400 Heart rate 103 /min Maday Talbot MD Work Phone: [facility] 09-11-2022 12:03-0400 SaO2% (BldA) [Mass fraction] 95 % Maday Talbot MD Work Phone: [facility] 09-11-2022 12:03-0400 Systolic blood pressure 167 mm[Hg] Maday Talbot MD Work Phone: [facility] 08-20-2022 14:44-0400 Body height 152.4 cm Celio Stevenson MD Work Phone: [facility] 08-20-2022 14:44-0400 Body mass index (BMI) [Ratio] 34.18 kg/m2 Celio Stevenson MD Work Phone: [facility] 08-20-2022 14:44-0400 Body weight 79.38 kg Celio Stevenson MD Work Phone: [facility] 08-20-2022 14:44-0400 Heart rate 82 /min Celio Stevenson MD Work Phone: [facility] 08-20-2022 14:44-0400 SaO2% (BldA) [Mass fraction] 96 % Celio Stevenson MD Work Phone: [facility] 07-01-2022 17:49-0400 Diastolic blood pressure 79 mm[Hg] Melody Ren MD Work Phone: [facility] 07-01-2022 17:49-0400 Heart rate 97 /min Melody Ren MD Work Phone: [facility] 07-01-2022 17:49-0400 Systolic blood pressure 178 mm[Hg] Melody Ren MD Work Phone: 5(116)698-070481 [address] 07-01-2022 17:47-0400 Body height 152.4 cm Melody Ren MD Work Phone: 0(074)612-662965 [place] [address] 06-05-2022 15:01-0500 Body height 152.4 cm Melody Ren MD Work Phone: 2(288)125-761765 [place] [address] 06-05-2022 15:01-0500 Diastolic blood pressure 79 mm[Hg] Melody Ren MD Work Phone: 0(367)948-967465 [place] [address] 06-05-2022 15:01-0500 Heart rate 86 /min Melody Ren MD Work Phone: 5(929)992-610965 [place] [address] 06-05-2022 15:01-0500 Systolic blood pressure 180 mm[Hg] Melody Ren MD Work Phone: 7(778)075-350865 [place] [address] 04-25-2022 13:12-0500 Body height 152.4 cm Melody Ren MD Work Phone: 8(908)340-279265 [place] [address] 04-25-2022 13:12-0500 Body mass index (BMI) [Ratio] 34.65 kg/m2 Melody Ren MD Work Phone: 8(043)999-533265 [place] [address] 04-25-2022 13:12-0500 Body weight 80.47 kg Melody Ren MD Work Phone: 1(548)336-943165 [place] [address] 04-25-2022 13:12-0500 Diastolic blood pressure 72 mm[Hg] Melody Ren MD Work Phone: 0(781)973-397165 [place] [address] 04-25-2022 13:12-0500 Heart rate 80 /min Melody Ren MD Work Phone: 5(625)152-581565 [place] [address] 04-25-2022 13:12-0500 Systolic blood pressure 138 mm[Hg] Melody Ren MD Work Phone: 9(469)908-349765 [place] [address] 09-05-2021 14:41-0400 Body height 152.4 cm Maday Talbot MD Work Phone: [facility] 09-05-2021 14:41-0400 Body mass index (BMI) [Ratio] 32.22 kg/m2 Maday Talbot MD Work Phone: [facility] 09-05-2021 14:41-0400 Body weight 74.84 kg Maday Talbot MD Work Phone: [facility] 09-05-2021 14:41-0400 Diastolic blood pressure 71 mm[Hg] Maday Talbot MD Work Phone: [facility] 09-05-2021 14:41-0400 Heart rate 79 /min Maday Talbot MD Work Phone: [facility] 09-05-2021 14:41-0400 SaO2% (BldA) [Mass fraction] 98 % Maday Talbot MD Work Phone: [facility] 09-05-2021 14:41-0400 Systolic blood pressure 126 mm[Hg] Maday Talbot MD Work Phone: [facility] Encounters Encounter Date Encounter Type Care Provider Facility Start: 04-15-2023 Evaluation and management of inpatient NAVEEN Dylan [place] Facility:[facility] Start: 04-14-2023 ambulatory [facility] Dylan [place] Facility:[facility] Start: 04-10-2023 Telephone encounter Larisa Brooks RN [facility] [place] Procedures Date Procedure Procedure Detail Performing Clinician [...] Detail Author Start: 08-21-2031 Tetanus vaccination TETANUS [facility] Start: 10-31-2023 Potassium [Moles/volume] in Serum or Plasma POTASSIUM [facility] Start: 05-28-2023 End: 05-28-2023 Patient encounter procedure [facility] Start: 04-25-2023 Thyroid stimulating hormone measurement TSH [facility] Start: 04-14-2023 End: 04-14-2023 Patient encounter procedure 04/14/2023 1:30 PM EST Office Visit [facility] [address] [place] [address] Maday Talbot MD [address] [place] [address] rd [address] [place] [address] [facility] [place] Start: 03-24-2023 End: 03-24-2024 Basic metabolic 2000 panel - Serum or Plasma BASIC METABOLIC PANEL Lab Routine 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), bioprosthetic Permanent atrial fibrillation Essential hypertension Expected: 03/24/2023, Expires: 03/24/2024 [facility] Immunizations Immunization Date Immunization Notes Care Provider Fa cility 02-01-2022 Influenza Vaccine, Quadrivalent, Adjuvanted Melody Ren MD Work Phone: [facility] 02-01-2022 influenza virus vacc ine, unspecified formulation Maday Talbot MD Work Phone: [facility] 08-20-2021 COVID-19 vaccine, Michael Hodges, 50 mcg/0.25 mL booster Melody Ren MD Work Phone: [facility] 08-20-2021 tetanus toxoid, redu jens diphtheria toxoid, and acellular pertussis vaccine, adsorbed Melody Ren MD Work Phone: [facility] 03-02-2021 COVID-19 vaccine, Michael Hodges, 50 mcg/0.25 mL booster Melody Ren MD Work Phone: 0(428)008-443681 [address] 02-19-2021 Influenza Vaccine, Quadrivalent, Adjuvanted Melody Ren MD Work Phone: [facility] 06-28-2020 hepatitis A vaccine, adult dosage Melody Ren MD Work Phone: [facility] 05-26-2020 COVID-19 vaccine, Michael Hodges, 100 mcg/0.5 mL Melody Ren MD Work Phone: 5(727)156-576381 [address] 05-08-2020 COVID-19 vaccine, Michael Hodges, 100 mcg/0.5 mL Melody Ren MD Work Phone: [facility] 04-28-2020 COVID-19 vaccine, Michael Hodges, 100 mcg/0.5 mL Melody Ren MD Work Phone: 5(622)063-941881 [address] 04-07-2020 COVID-19 vaccine, Michael Hodges, 100 mcg/0.5 mL Melody Ren MD Work Phone: [facility] 02-21-2020 zoster vaccine recombinant Melody Ren MD Work Phone: [facility] 10-29-2019 hepatitis A vaccine, adult dosage Melody Ren MD Work Phone: [facility] 10-29-2019 zoster vaccine recombinant Melody Ren MD Work Phone: [facility] 01-07-2018 influenza, injectabl e, quadrivalent, contains preservative Melody Ren MD Work Phone: [facility] 01-06-2018 influenza, high dose seasonal, preservative-free Melody Ren MD Work Phone: [facility] 01-03-2017 influenza, injectabl e, quadrivalent, contains preservative Melody Ren MD Work Phone: [facility] 01-06-2016 influenza virus vacc ine, unspecified formulation Maday Talbot MD Work Phone: [facility] 01-04-2016 influenza, seasonal, injectable Melody Ren MD Work Phone: [facility] 02-05-2014 pneumococcal conjuga te vaccine, 13 valent Melody Ren MD Work Phone: [facility] 08-05-2005 pneumococcal polysaccharide vaccine, 23 valent Melody Ren MD Work Phone: [facility] Payers Date Payer Category Payer Medicare MEDICARE [employer] H[employer] PPO MEDICARE [employer] HMO PPO [id number] 2017-Present [address] [address] [place] [address] [id number] 2017 Medicare [id number] 1940 Unknown [id number] 1940 Unknown [id number] 1939 Unknown [id number] ..[id number] 1939 Unknown [id number] ..[id number] 1939 Unknown [id number] [id number] 1939 Unknown [id number] [id number] 1939 Unknown [id number] [id number] 1939 Unknown [id number] [id number] 1939 Unknown [id number] [id number] 1939 Unknown [id number] [id number] 1939 Unknown [id number] [id number] 1939 Unknown [id number] [id number] 1939 Unknown [id number] [id number] 1939 Unknown [id number] [id number] 1939 Unknown [id number] [id number] 1939 Unknown [id number] [id number] 1939 Unknown [id number] [id number] 1939 Unknown [id number] [id number] 1939 Unknown [id number] [id number] 1939 Unknown [id number] Social History Date Type Detail Facility Start: 01-15-2016 End: 02-19-2023 Tobacco smoking status NHIS Ex-smoker [facility] Start: 1955 End: 04-07-2003 History of tobacco use Current smoker [facility] Start: 1955 End: 04-07-2003 History of tobacco use Cigarette Smoker [facility] Start: 01-15-2016 End: 04-14-2023 Cigarettes smoked current (pack per day) - Reported 1 [facility] Start: 01-15-2016 End: 02-19-2023 Tobacco use and exposure Smokeless tobacco non-user [facility] Start: 09-05-2021 End: 03-19-2023 Alcohol intake Current drinker of alcohol (finding) [facility] Start: 12-09-2008 History SDOH Alcohol Comment occasionally [facility] Start: 02-09-2015 End: 04-25-2022 Tobacco Comment quit 11 years ago [facility] Start: 1940 Sex Assigned At Not on file [facility] Start: 03-03-2022 End: 04-25-2022 Exposure to SARS-CoV-2 (event) Unable to assess [facility] Start: 04-25-2022 Alcohol Comment Wine with dinn er once in awhile [facility] Start: 05-26-2022 End: 06-05-2022 Exposure to SARS-CoV-2 (event) Not sure [facility] Start: 09-11-2022 End: 04-14-2023 Tobacco use panel [facility] Gender identity Identifies as fe male gender (finding) [facility] Medical Equipment Procedure Code Equipment Code Equipment Origin al Text Equipment Identifier Dates Nichole Starr 58cm - [id number] Start: 02-01-2016 Valve Tavr Evolu t 26 - [id number] Start: 01-31-2016 Clinical Notes 09-05-2021 to 04-15-2023 Telephone Encounter - Vanessa Ruggiero RN - 04/15/2023 3:02 PM ESTTelephone Encounter - Vanessa Ruggiero RN - 04/15/2023 3:02 PM ESTTelephone Encounter - Vanessa Ruggiero RN - 04/15/2023 2:27 PM EST Note Date & Type Note Facility 04-15-2023 Telephone encounter Note Faxed lab order [facility] 04-15-2023 Miscellaneous Notes Faxed lab order MALINA patent's daughter, Silvestre. Will fax lab orders to [facility]. Silvestre wants to know if patient can start cardiac rehab in [place]. After labs ordered will need faxed to [phone] outpatient lab. Images from the original note were not included. Charbel Arteaga MD You21 hours ago (4:23 PM) Plan: continue the furosemide / lasix at 20 mg po bid and the K supplement at 10 mEq po BID; monitor symptoms / findings; obtain a chem 6 on with results to this office. Thank you. SW patient's daughter Silvester, gave Dr Arteaga's recommendations. Images from the [...] Outside Labs: Received: Yesterday Charbel Arteaga MD [facility] Pool Outside labs noted: K of 3.5 and BUN/Cr of 28/0.95. Please check on the patient with respect to any ongoing symptoms / concerns - especially volume related - which will help guide further care. Spoke with pt's daughter Silvestre. Reports Dot is currently not feeling well - being treated by [facility] for an URI with prednisone and antibiotic. [...] needed. She will follow up with a [employer] message when she gets home. Pt is interested in cardiac rehab. documented in this encounter [facility] 04-15-2023 Telephone encounter Note SW cherie's daughter, Silvestre. Will fax lab orders to [facility]. Silvestre wants to know if patient can start cardiac rehab in [place]. After labs ordered will need faxed to [phone], [facility] outpatient lab. [facility] 04-15-2023 Telephone encounter Note Images from the original note were not included. Charbel Arteaga MD You21 hours ago (4:23 PM) Plan: continue the furosemide / lasix at 20 mg po bid and the K supplement at 10 mEq po BID; monitor symptoms / findings; obtain a chem 6 on with results to this office. Thank you. [facility] 04-11-2023 Telephone encounter Note SW patient's daughter Silvestre, gave Dr Arteaga's recommendations. [facility] 04-11-2023 Miscellaneous Notes SW patient's daughter Silvestre, [...] Labs: Received: Yesterday Charbel Arteaga MD [facility] T[facility] Pool Outside labs noted: K of 3.5 and BUN/Cr of 28/0.95. Please check on the patient with respect to any ongoing symptoms / concerns - especially volume related - which will help guide further care. Spoke with pt's daughter Silvestre. Reports Dot is currently not feeling well - being treated by [facility] for an URI with prednisone and antibiotic. [...] needed. She will follow up with a [employer] message when she gets home. Pt is interested in cardiac rehab. documented in this encounter [facility] 04-11-2023 Telephone encounter Note Images from the [...] to her lower extremity edema. Thank you. [facility] 04-10-2023 Telephone encounter Note Images from the original note were not included. Outside Labs: Received: Yesterday Charbel Arteaga MD [facility] Outside labs noted: K of 3.5 and BUN/Cr of 28/0.95. Please check on the patient with respect to any ongoing symptoms / concerns - especially volume related - which will help guide further care. Spoke with pt's daughter Silvestre. Reports Dot is currently not feeling well - being treated by [facility] for an URI with prednisone and antibiotic. [...] needed. She will follow up with a [employer] message when she gets home. Pt is interested in cardiac rehab. [facility] 04-09-2023 Telephone encounter Note Received lab results from [facility]. Sent to scanning for upload into chart. Copy given to Dr. Arteaga. [facility] 04-09-2023 Miscellaneous Notes Received lab results from [facility]. Sent to scanning for upload into chart. Copy given to Dr. Arteaga. Faxed to [phone] The LVEDP is a blood pressure recording [...] labs are signed, they need faxed to [facility]. Spoke with patient's daughter regarding the above [...] Cardiac cath: Received: Today Charbel Arteaga MD [facility] Pool Please update the patient that her cardiac cath procedure was received / reviewed. 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 She did not require additional PTCA. The recommendation is for her to continue medical therapy and follow up. Thank you. Sending mychart. documented in this encounter [facility] 03-24-2023 Telephone encounter Note Faxed to [phone] [facility] 03-24-2023 Telephone encounter Note The LVEDP is [...] labs are signed, they need faxed to [facility]. [facility] 03-21-2023 Telephone encounter Note Spoke with patient's daughter regarding the above results and recommendations. Patient's daughter verbalized understanding. She said there was concerns of the LVEDP. Is this something that needs addressed? She noted that the patient has been more short of breath than normal. She is currently on 20 mg lasix daily. [facility] 03-20-2023 Telephone encounter Note Images from the original note were not included. Cardiac cath: Received: Today Charbel Arteaga MD [facility] Pool Please update the patient that her cardiac cath procedure was received / reviewed. 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 She did not require additional PTCA. The recommendation is for her to continue medical therapy and follow up. Thank you. Sending mychart. [facility] 03-19-2023 Nurse Note After Visit Summary [...] at time of discharge. Hayley Melendez RN [facility] 03-19-2023 Miscellaneous Notes After Visit Summary [...] Brief Cardiac Catheterization Procedure Note Kiara Martinez ([id number]) Pre Procedural Diagnosis Abnormal stress test [R94.39] [...] Swapnil Gilmore MD - Fellow Procedural Staff Retail Selling Specialist: Vandana Knox RN; Patty Gallegos RN Documenter: [...] fib. 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 You are to arrive at [facility] on the 1st floor at 6:00 AM You may use monogram technician parking ($10) or park in the [employer] [facility] just past the [place] ($3). There is a walkway from the 2nd floor of the garage into the [employer] Lobby. You are to have nothing to [...] please call NOW to notify the lab ([phone]). You may receive sedation during your procedure [...] AFTER THE PROCEDURE. Labs: PLEASE GO TO [facility] TO HAVE YOUR LAB WORK DRAWN [...] REGARDING THE PROCEDURE CALL US AT : [phone] THANK YOU, JEYSON DE LUNA Exhibition Organiser Scheduling The above instructions were given to [...] an hour. documented in this encounter [facility] 03-19-2023 Surgery Postoperative evaluation and management note Preliminary Report - Brief Cardiac Catheterization Procedure Note Kiara Manrique Juan ([id number]) Pre Procedural Diagnosis Abnormal stress test [R94.39] [...] Swapnil Gilmore MD - Fellow Procedural Staff Retail Selling Specialist: Vandana Knox RN; Patty Gallegos RN Documenter: Toshia Hernandez RN Full report to follow Swapnil Gilmore MD March 19, 2023 9:26 AM [facility] 03-19-2023 History and physical note PRE-CATH [...] angiography. Tigre Mortensen, DO Fellow, Cardiovascular Medicine [facility] Work Phone: 03-19-2023 History and physical [...] Fellow, Cardiovascular Medicine documented in this encounter [facility] 03-19-2023 Nurse Note Pt arrives to [...] monitor shows a fib. Hayley Melendez RN [facility] 03-06-2023 Nurse Note PREPARING FOR YOUR PLANTING MATERIAL CARRIER PROCEDURE Your catheterization is scheduled on 03/19/23 at: [facility] at the [facility] located at [address] [place] [address]. You are to arrive at [facility] on the 1st floor at 6:00 AM You may use monogram technician parking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 memory Memory loss [facility] Diagnosis Peripheral vertigo involving left ear [facility] Diagnosis 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 [facility] Diagnosis Bilateral carotid artery stenosis Occlusion 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 without mention of cerebral infarction [facility] Diagnosis Bilateral carotid artery stenosis- Primary Occlusion 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 without mention of cerebral infarction [facility] Diagnosis Asymptomatic bilateral carotid artery stenosis- Primary Occlusion 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 without mention of cerebral infarction Abnormal finding of blood chemistry, unspecified Asymptomatic bilateral carotid artery stenosis Occlusion 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 without mention of cerebral infarction [facility] Bilateral carotid artery stenosis Occlusion 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 without mention of cerebral infarction [facility] Diagnosis Asymptomatic bilateral carotid artery stenosis Occlusion 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 without mention of cerebral infarction [facility] Diagnosis Asymptomatic carotid artery stenosis Occlusion and stenosis of carotid artery without mention of cerebral infarction [facility] Diagnosis Bilateral carotid artery stenosis- Primary Occlusion 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 without mention of cerebral infarction [facility] Diagnosis 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), bioprosthetic Permanent atrial fibrillation Atrial fibrillation Essential hypertension Unspecified essential hypertension Hyperlipidemia, unspecified hyperlipidemia type Asymptomatic bilateral carotid artery stenosis Occlusion 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 without mention of cerebral infarction Pre-operative cardiovascular examination [facility] Diagnosis Obesity: body mass index of [...] Unspecified essential hypertension Coronary artery disease involving [place] coronary artery of [place] heart without angina pectoris Nonrheumatic aortic valve stenosis Aortic valve disorders [facility] Diagnosis 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 [facility] Diagnosis 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), bioprosthetic Permanent atrial fibrillation Atrial fibrillation Essential hypertension Unspecified essential hypertension Hyperlipidemia, unspecified hyperlipidemia type Asymptomatic bilateral carotid artery stenosis Occlusion 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 without mention of cerebral infarction Pre-operative cardiovascular examination [facility] Diagnosis 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 [facility] Diagnosis Abnormal stress test Other nonspecific abnormal cardiovascular system function study Abnormal stress test Other nonspecific abnormal cardiovascular system function study [facility] Diagnosis 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 * Cardiac Cath [facility] After - Wrist Site ([facility]) (Armenian) [facility] Purpose Family History No Family History [...] DUPLEX CAROTID BILATERAL Maday Talbot MD [address] [facility] 5th Floor [address] [place] [address] Referral ID Status Reason Start Date Expiration Date V isits Requested Visits Authorized [id number] New Request 09/05/2021 09/30/2022 1 1 Specialty Diagnoses / Procedures Referred By Sammyac t Referred To Contact Neurology Diagnoses Bilateral carotid artery stenosis Dizziness Maday Talbot MD [address] [facility] 5th [address] [place] [address] Referral ID Status Reason Start Date Expiration Date V isits Requested Visits Authorized [id number] New Request 09/05/2021 09/30/2022 1 1 Specialty Diagnoses / Procedures Referred By Sammyac t Referred To Contact Diagnoses Loss of memory Procedures MRI BRAIN WITHOUT CONTRAST NM MRI BRAIN Melody Ren MD [address] [address] Referral ID Status Reason Start Date Expiration Date V isits Requested Visits Authorized [id number] New Request 04/25/2022 05/20/2023 1 1 Referral ID Status Reason Start Date Expiration Date Visits Re quested Visits Authorized [id number] Closed 04/25/2022 05/20/2023 1 1 Specialty Diagnoses / Procedures Referred By Courtney t Referred To Contact Diagnoses Peripheral vertigo involving left ear Procedures MRI INTERNAL AUDITORY CANAL WITH AND WITHOUT CONTRAST NM MRI BRAIN COMBO Melody Ren MD [address] [address] Referral ID Status Reason Start Date Expiration Date Visits Re quested Visits Authorized [id number] Closed 06/07/2022 07/02/2023 1 1 Specialty Diagnoses / Procedures Referred By Contac t Referred To Contact Diagnoses Vestibular schwannoma Procedures MRI INTERNAL AUDITORY CANAL WITH AND WITHOUT CONTRAST NM MRI BRAIN COMBO Celio Stevenson MD [address] [address] Referral ID Status Reason Start Date Expiration Date V isits Requested Visits Authorized [id number] New Request 08/20/2022 09/14/2023 1 1 Specialty Diagnoses / Procedures Referred By Contac t Referred To Contact Diagnoses Bilateral carotid artery stenosis Procedures VASC DUPLEX CAROTID BILATERAL Tayla Carter R, PAC [address] [place] [address] Referral ID Status Reason Start Date Expiration Date V isits Requested Visits Authorized [id number] New Request 03/13/2022 04/07/2023 1 1 Specialty Diagnoses / Procedures Referred By Contac t Referred To Contact Diagnoses Bilateral carotid artery stenosis Procedures CT ANGIO BRAIN/NECK NM CT ANGIO,HEAD COMBO,INCL IMAGE PROCESS NM CT ANGIO,NECK COMBO,INCL IMAGE PROCESS Tayla Carter, PAC [address] [place] [address] Referral ID Status Reason Start Date Expiration Date V isits Requested Visits Authorized [id number] New Request 09/11/2022 10/06/2023 1 1 Specialty Diagnoses / Procedures Referred By Contac t Referred To Contact Diagnoses Asymptomatic bilateral carotid artery stenosis Procedures ECG Tayla Carter R, PAC [address] [place] [address] Referral ID Status Reason Start Date Expiration Date V isits Requested Visits Authorized [id number] New Request 10/30/2022 11/24/2023 1 1 Referral ID Status Reason Start Date Expiration Date Visits Re quested Visits Authorized [id number] Closed 09/11/2022 10/06/2023 1 1 Specialty Diagnoses / Procedures Referred By Contac t Referred To Contact Echocardiography Diagnoses 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 Procedures ECHOCARDIOGRAM NM ECHO HEART XTHORACIC,COMPLETE W DOPPLER Maday Talbot MD [address] [facility] rd 5[address] [address] [address] [place] [address] Referral ID Status Reason Start Date Expiration Date Visits Re quested Visits Authorized [id number] Closed 01/31/2023 02/25/2024 1 1 Specialty Diagnoses / Procedures Referred By Contac t Referred To Contact Diagnoses 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 Procedures NUC MYOCARD PERF STRESS MIBI PHARM NM CHG MYOCARDIAL SPECT MULTIPLE STUDIES CHG MYOCARDIAL SPECT MULTIPLE STUDIES-T NM CARDIAC STRESS TST,INTERP/REPT ONLY NM CV STRS TST XERS&/OR RX CONT ECG W/O I&R Maday Talbot MD [address] [facility] 5[address] [address] Referral ID Status Reason Start Date Expiration Date Visits Re quested Visits Authorized [id number] Closed 01/31/2023 02/25/2024 1 1 Specialty Diagnoses / Procedures Referred By Contac t Referred To Contact Procedures ECG Escobar Reaves MD [address] [place] [address] Referral ID Status Reason Start Date Expiration Date V isits Requested Visits Authorized [id number] New Request 03/19/2023 04/12/2024 1 1 Additional Source Comments INFORMATION SOURCE (unrecogn ized section and content) DATE CREATED AUTHOR AUTHOR'S ORGANIZ ATION 04/29/2023 [facility] Reason for Visit (unrecogniz ed section and content) Specialty Diagnoses / Procedures Referred By Contac t Referred To Contact Diagnoses Bilateral carotid artery stenosis Procedures VASC DUPLEX CAROTID BILATERAL VASC DUPLEX CAROTID BILATERAL Maday Talbot MD [address] [facility] [address] [address] Referral ID Status Reason Start Date Expiration Date V isits Requested Visits Authorized [id number] New Request 09/05/2021 09/30/2022 1 1 Reason Comments New Patient Specialty Diagnoses / Procedures Referred By Contac t Referred To Contact Neurology Diagnoses Bilateral carotid artery stenosis Dizziness Maday Talbot MD [address] [facility] [address] [address] Referral ID Status Reason Start Date Expiration Date V isits Requested Visits Authorized [id number] New Request 09/05/2021 09/30/2022 1 1 Specialty Diagnoses / Procedures Referred By Courtney michele Referred To Contact Diagnoses Loss of memory Procedures MRI BRAIN WITHOUT CONTRAST NM MRI BRAIN Melody Ren MD [address] [address] Referral ID Status Reason Start Date Expiration Date Visits Re quested Visits Authorized [id number] Closed 04/25/2022 05/20/2023 1 1 Specialty Diagnoses / Procedures Referred By Courtney t Referred To Contact Diagnoses Peripheral vertigo involving left ear Procedures MRI INTERNAL AUDITORY CANAL WITH AND WITHOUT CONTRAST NM MRI BRAIN COMBO Melody Ren MD [address] [address] Referral ID Status Reason Start Date Expiration Date Visits Re quested Visits Authorized [id number] Closed 06/07/2022 07/02/2023 1 1 Reason Comments Vestibular Schwanoma vestibular schwanno ma pt stated that she is a nodule behind her left ear and she gets dizzy some times Specialty Diagnoses / Procedures Referred By Courtney michele Referred To Contact Diagnoses Bilateral carotid artery stenosis Procedures VASC DUPLEX CAROTID BILATERAL Tayla Carter, PAC [address] [place] [address] Referral ID Status Reason Start Date Expiration Date V isits Requested Visits Authorized [id number] New Request 03/13/2022 04/07/2023 1 1 Reason Comments Follow-up Reason Comments Follow-up Follow up after CTA Specialty Diagnoses / Procedures Referred By Courtney t Referred To Contact Diagnoses Bilateral carotid artery stenosis Procedures CT ANGIO BRAIN/NECK NM CT ANGIO,HEAD COMBO,INCL IMAGE PROCESS NM CT ANGIO,NECK COMBO,INCL IMAGE PROCESS Tayla Carter, PAC [address] [place] [address] Referral ID Status Reason Start Date Expiration Date Visits Re quested Visits Authorized [id number] Closed 09/11/2022 10/06/2023 1 1 Specialty Diagnoses / Procedures Referred By Courtney michele Referred To Contact Diagnoses Bilateral carotid artery stenosis Bilateral carotid artery stenosis [I65.23] Procedures NM PLACE CATH SUBSELECT ART,NECK PLACEMENT CATHETER SELECTIVE ARTERY INITIAL 2ND ORDER THORACIC/BRACHIOCEPHALIC Maday Talbot MD [address] [facility] [address] [place] [address] [facility] [address] [place] [address] Referral ID Status Reason Start Date Expiration Date Visits Re quested Visits Authorized [id number] 1 1 Reason Comments Surgical Follow-up Follow-up [...] due to calcified coronary lesion Procedures ECHOCARDIOGRAM NM ECHO HEART XTHORACIC,COMPLETE W DOPPLER Maday Talbot MD [address] [facility] 5th [address] [place] [address] [place] [address] Referral ID Status Reason Start Date Expiration Date Visits Re quested Visits Authorized [id number] Closed 01/31/2023 02/25/2024 1 1 Reason Comments Consult Patient here for voc al cord check. 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 Procedures NUC MYOCARD PERF STRESS MIBI PHARM NM CHG MYOCARDIAL SPECT MULTIPLE STUDIES CHG MYOCARDIAL SPECT MULTIPLE STUDIES-T NM CARDIAC STRESS TST,INTERP/REPT ONLY NM CV STRS TST XERS&/OR RX CONT ECG W/O I&R Maday Talbot MD [address] [facility] 5th [address] [place] [address] Referral ID Status Reason Start Date Expiration Date Visits Re quested Visits Authorized [id number] Closed 01/31/2023 02/25/2024 1 1 Specialty Diagnoses / Procedures Referred By Courtney t Referred To Contact Diagnoses Abnormal stress test Abnormal stress test [R94.39] Procedures NM CATH PLMT L HRT & ARTS W/NJX & ANGIO IMG S&I CORONARY ANGIOGRAM CORONARY BYPASS GRAFT ANGIOGRAM LEFT HEART CATHETERIZATION [facility] [address] [place] [address] [facility] [address] [place] [address] Referral ID Status Reason Start Date Expiration Date Visits Re quested Visits Authorized [id number] 1 1 Reason Onset Date Comments Results 03/20/2023 Reason Onset Date Comments Results 04/10/2023 Care Teams (unrecognized sec tion and content) Soda Dispenser 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 Specialty Start Date End Date Noe Rodriguez MD [facility] [address] [address] PCP - Referring 1 Cardiovascular Disease 02/07/16 Naveen Osullivan MD [address] [place] [address] PCP - General Family Medicine 03/22/16 Noe Rodriguez MD 176 [facility] [address] [place] [address] Referring Provider Cardiovascular Disease 12/18/15 Larisa Jean, RN Registered Nurse 03/05/16 Soda Dispenser 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 Specialty Start Date End Date Noe Rodriguez MD [address] [facility] [address] [address] PCP - Referring 1 Cardiovascular Disease 02/07/16 Naveen Osullivan MD [address] [place] [address] PCP - General Family Medicine 03/22/16 Noe Rodriguez MD [address] [facility] [address] [place] [address] Referring Provider Cardiovascular Disease 12/18/15 Larisa Jean, RN Registered Nurse 03/05/16 Soda Dispenser 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 Specialty Start Date End Date Noe Rodriguez MD [address] [place] [address] PCP - Referring 1 Cardiovascular Disease 02/07/16 Naveen Osullivan MD [address] [facility] [place] [address] PCP - General Family Medicine 03/22/16 Noe Rodriguez MD [address] [facility] [address] [place] [address] Referring Provider Cardiovascular Disease 12/18/15 Larisa Jean, RN Registered Nurse 03/05/16 Soda Dispenser 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 Specialty Start Date End Date Noe Rodriguez MD [address] [place] [address] PCP - Referring 1 Cardiovascular Disease 02/07/16 Naveen Osullivan MD [address] [place] [address] PCP - General Family Medicine 03/22/16 Noe Rodriguez MD [address] [facility] [address] [place] [address] Referring Provider Cardiovascular Disease 12/18/15 Larisa Jean, RN Registered Nurse 03/05/16 Soda Dispenser 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 Specialty Start Date End Date Noe Rodriguez MD [address] [place] [address] PCP - Referring 1 Cardiovascular Disease 02/07/16 Naveen Osullivan MD [address] [place] [address] PCP - General Family Medicine 03/22/16 Noe Rodriguez MD [facility] [address] [place] [address] Referring Provider Cardiovascular Disease 12/18/15 Larisa Jean, RN Registered Nurse 03/05/16 Soda Dispenser 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 Specialty Start Date End Date Noe Rodriguez MD [address] [place] [address] PCP - Referring 1 Cardiovascular Disease 02/07/16 Naveen Osullivan MD [address] [place] [facility] [place] [address] PCP - General Family Medicine 03/22/16 Noe Rodriguez MD [address] [facility] [place] [address] Referring Provider Cardiovascular Disease 12/18/15 Larisa Jean RN Registered Nurse 03/05/16 Soda Dispenser 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 Specialty Start Date End Date Noe Rodriguez MD [address] [place] [address] PCP - Referring 1 Cardiovascular Disease 02/07/16 Naveen Osullivan MD [address] [facility] [place] [address] PCP - General Family Medicine 03/22/16 Noe Rodriguez MD [facility] [facility] [address] [address] [place] [address] Referring Provider Cardiovascular Disease 12/18/15 Larisa Jean, RN Registered Nurse 03/05/16 Soda Dispenser 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 Specialty Start Date End Date Noe Rodriguez MD [address] [place] [address] PCP - Referring 1 Cardiovascular Disease 02/07/16 Naveen Osullivan MD [address] [place] [address] PCP - General Family Medicine 03/22/16 Noe Rodriguez MD [address] [facility] [place] [address] Referring Provider Cardiovascular Disease 12/18/15 Larisa Jean, RN Registered Nurse 03/05/16 Soda Dispenser 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 Specialty Start Date End Date Noe Rodriguez MD [address] [place] [address] PCP - Referring 1 Cardiovascular Disease 02/07/16 Naveen Osullivan MD [address] [place] [address] PCP - General Family Medicine 03/22/16 Noe Rodriguez MD [address] [facility] [place] [address] Referring Provider Cardiovascular Disease 12/18/15 Larisa Jean, RN Registered Nurse 03/05/16 Soda Dispenser 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 Specialty Start Date End Date Noe Rodriguez MD [address] [place] [address] PCP - Referring 1 Cardiovascular Disease 02/07/16 Naveen Osullivan MD [address] [address] [place] [address] PCP - General Family Medicine 03/22/16 oNe Rodriguez MD [address] [facility] [place] [address] Referring Provider Cardiovascular Disease 12/18/15 Larisa Jean, RN Registered Nurse 03/05/16 Soda Dispenser 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 Specialty Start Date End Date Noe Rodriguez MD [address] [place] [address] PCP - Referring 1 Cardiovascular Disease 02/07/16 Naveen Osullivan MD [address] [facility] [place] [address] PCP - General Family Medicine 03/22/16 Noe Rodriguez MD [address] [place] [address] Referring Provider Cardiovascular Disease 12/18/15 Larisa Jean RN Registered Nurse 03/05/16 Soda Dispenser 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 Specialty Start Date End Date Noe Rodriguez MD [address] [place] [address] PCP - Referring 1 Cardiovascular Disease 02/07/16 Naveen Osullivan MD [address] [place] [facility] [address] PCP - General Family Medicine 03/22/16 Noe Rodriguez MD [address] [place] [address] Referring Provider Cardiovascular Disease 12/18/15 Larisa Jean, RN Registered Nurse 03/05/16 Soda Dispenser 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 Specialty Start Date End Date Noe Rodriguez MD [address] [place] [address] PCP - Referring 1 Cardiovascular Disease 02/07/16 Naveen Osullivan MD [address] [place] [address] PCP - General Family Medicine 03/22/16 Noe Rodriguez MD [address] [place] [address] Referring Provider Cardiovascular Disease 12/18/15 Larisa Jean, RN Registered Nurse 03/05/16 Soda Dispenser 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 Specialty Start Date End Date Noe Rodriguez MD [address] [place] [address] PCP - Referring 1 Cardiovascular Disease 02/07/16 Naveen Osullivan MD [address] [place] [address] PCP - General Family Medicine 03/22/16 Noe Rodriguez MD [address] [place] [address] Referring Provider Cardiovascular Disease 12/18/15 Larisa Jean, RN Registered Nurse 03/05/16 Soda Dispenser 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 Specialty Start Date End Date Noe Rodriguez MD [address] [place] [address] PCP - Referring 1 Cardiovascular Disease 02/07/16 Naveen Osullivan MD [address] [place] [address] PCP - General Family Medicine 03/22/16 Noe Rodriguez MD [address] [place] [address] Referring Provider Cardiovascular Disease 12/18/15 Larisa Jean, RN Registered Nurse 03/05/16 Soda Dispenser 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 Specialty Start Date End Date Noe Rodriguez MD [address] [place] [address] PCP - Referring 1 Cardiovascular Disease 02/07/16 Naveen Osullivan MD [address] [place] [address] PCP - General Family Medicine 03/22/16 Noe Rodriguez MD [address] [place] [address] Referring Provider Cardiovascular Disease 12/18/15 Larisa Jean, RN Registered Nurse 03/05/16 03/05/23 Soda Dispenser 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 Specialty Start Date End Date Noe Rodriguez MD [address] [place] [address] PCP - Referring 1 Cardiovascular Disease 02/07/16 Naveen Osullivan MD [address] [facility] [place] [address] PCP - General Family Medicine 03/22/16 Noe Rodriguez MD [address] [place] [address] Referring Provider Cardiovascular Disease 12/18/15 Soda Dispenser 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 Specialty Start Date End Date Noe Rodriguez MD [address] [place] [address] PCP - Referring 1 Cardiovascular Disease 02/07/16 Naveen Osullivan MD [address] [place] [address] PCP - General Family Medicine 03/22/16 Noe Rodriguze MD [address] [place] [address] Referring Provider Cardiovascular Disease 12/18/15 Soda Dispenser 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 Specialty Start Date End Date Noe Rodriguez MD [address] [place] [address] PCP - Referring 1 Cardiovascular Disease 02/07/16 Naveen Osullivan MD [address] [place] [address] PCP - General Family Medicine 03/22/16 Noe Rodriguez MD [address] [place] [address] Referring Provider Cardiovascular Disease 12/18/15 Soda Dispenser 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 Specialty Start Date End Date Noe Rodriguez MD [address] [place] [address] PCP - Referring 1 Cardiovascular Disease 02/07/16 Naveen Osullivan MD [address] [place] [address] PCP - General Family Medicine 03/22/16 Noe Rodriguez MD [address] [place] [address] Referring Provider Cardiovascular Disease 12/18/15 Scheduled Active [...] BE BASED ON THE PRIMARY CLINICAL RECORDS. [employer] provides no warranty or guarantee of the accuracy or completeness of information in this document.
== END | disposition home or self-care (01) ==
LOC: PSN 09:10
PROVIDERS: PCP Family Medicine; Referring Provider Internal Medicine Critical Care Medicine; Visit Provider Internal Medicine Critical Care Medicine
DX: J45.41 Moderate persistent asthma with (acute) exacerbation (principal)
CPT/HCPCS: 87633

== ENCOUNTER → 2023-05-20 | Outpatient (CLI) | payer MEDICARE, SELFPAY ==
--- NOTE | 2023-05-20 14:36 | RAD_ITS ---
INDICATION: PAIN EXAMINATION/TECHNIQUE: X-RAY - XR Spine Lumbar Min 4 Views COMPARISON: No relevant prior comparison study available FINDINGS: VERTEBRAE: Preserved vertebral body height. No fracture. Mild anterolisthesis of L4 over L5. Minimal retrolisthesis of L1 over L2 and L2 over L3. Preservation of the normal lumbar lordosis. Minimal dextroscoliosis. DISCS: Mild narrowing of L4-L5 disc space. Mild endplate spondylosis. Degenerative changes of the facet joints of the lower lumbar spine on the right side. INCLUDED ABDOMEN: Included bowel gas pattern is non-obstructive. RAD/L/S Spine Min 4 Views IMPRESSION: Degenerative changes of the lumbar spine as described above. Electronically Signed: Alexandr Cabrera MD at 17:28 EST ,
--- OUTSIDE RECORDS SUMMARY | 2023-05-20 19:20 | XMS RPT_ITS | CCD ---
Author Name Unknown Address [address] [place] [address] Organization [facility] Care Team Providers Care Tare Man Name Role Phone Noe Rodriguez MD Unavailable [phone] Noe Rodriguez MD Unavailable [phone] Miranda DE LUNA, Larisa Unavailable Unavailable Naveen Osullivan MD Primary Care Provider Noe Rodriguez MD Unavailable [phone] Noe Rodriguez MD Unavailable [phone] Naveen Osullivan MD A Primary Care Provider [...] Facility (20 sources) Lanolin Drug Allergy 09-29-2008 [facility] (20 sources) nickel sulfate Drug Allergy 12-09-2008 [facility] (20 sources) *Adhesive Tape Propensity to adverse reactions 03-22-2016 [facility] Medications Current Medications Medication Drug [...] Coronary atherosclerosis; Translations: [Atherosclerotic heart disease of teller coronary artery without angina pectoris] Onset: 5 [...] mm[Hg] Juan Jose Ha MD Work Phone: [facility] 03-19-2023 12:15-0500 Heart rate 76 /min Juan Jose Ha MD Work Phone: [facility] 03-19-2023 12:15-0500 Respiratory rate 20 /min Juan Jose Ha MD Work Phone: [facility] 03-19-2023 12:15-0500 SaO2% (BldA) [Mass fraction] 96 % Juan Jose Ha MD Work Phone: [facility] 03-19-2023 12:15-0500 Systolic blood pressure 128 mm[Hg] Juan Jose Ha MD Work Phone: [facility] 03-19-2023 06:39-0500 Body height 149.9 cm Juan Jose Ha MD Work Phone: [facility] 03-19-2023 06:39-0500 Body mass index (BMI) [Ratio] 34.91 kg/m2 Juan Jose Ha MD Work Phone: [facility] 03-19-2023 06:39-0500 Body temperature 98.2 [degF] Juan Jose Ha MD Work Phone: [facility] 03-19-2023 06:39-0500 Body weight 78.4 kg Juan Jose Ha MD Work Phone: [facility] 03-05-2023 09:00-0500 Body height 149.9 cm Tayla Zahorujko PAC Work Phone: [facility] 03-05-2023 09:00-0500 Body mass index (BMI) [Ratio] 35.14 kg/m2 Tayla Zahorujko PAC Work Phone: [facility] 03-05-2023 09:00-0500 Body weight 78.93 kg Tayla Zahorujko PAC Work Phone: [facility] 03-05-2023 09:00-0500 Diastolic blood pressure 74 mm[Hg] Tayla Zahorujko PAC Work Phone: [facility] 03-05-2023 09:00-0500 Heart rate 80 /min Tayla Zahorujko PAC Work Phone: [facility] 03-05-2023 09:00-0500 Systolic blood pressure 126 mm[Hg] Tayla Zahorujko PAC Work Phone: [facility] 02-21-2023 15:21-0500 Body height 149.9 cm Von Tobias MD Work Phone: [facility] 02-21-2023 15:21-0500 Body mass index (BMI) [Ratio] 35.14 kg/m2 Von Tobias MD Work Phone: [facility] 02-21-2023 15:21-0500 Body weight 78.93 kg Von Tobias MD Work Phone: [facility] 02-21-2023 15:21-0500 Respiratory rate 14 /min Von Tobias MD Work Phone: [facility] 02-19-2023 11:55-0500 Body height 149.9 cm Tayla Zahorujko PAC Work Phone: [facility] 02-19-2023 11:55-0500 Body mass index (BMI) [Ratio] 35.2 kg/m2 Tayla Zahorujko PAC Work Phone: [facility] 02-19-2023 11:55-0500 Body weight 79.1 kg Tayla Zahorujko PAC Work Phone: [facility] 02-19-2023 11:55-0500 Diastolic blood pressure 78 mm[Hg] Tayla Zahorujko PAC Work Phone: [facility] 02-19-2023 11:55-0500 Systolic blood pressure 146 mm[Hg] Tayla Zahorujko PAC Work Phone: [facility] 02-19-2023 10:26-0500 Body height 149.9 cm Charbel Arteaga MD Work Phone: [facility] 02-19-2023 10:26-0500 Body mass index (BMI) [Ratio] 35.22 kg/m2 Charbel Arteaga MD Work Phone: [facility] 02-19-2023 10:26-0500 Body weight 79.11 kg Charbel Arteaga MD Work Phone: 1(117)435-882966 [place] [address] 02-19-2023 10:26-0500 Diastolic blood pressure 78 mm[Hg] Charbel Arteaga MD Work Phone: 0(735)065-507356 [address] 02-19-2023 10:26-0500 Heart rate 78 /min Charbel Arteaga MD Work Phone: 7(897)884-346556 [address] 02-19-2023 10:26-0500 Systolic blood pressure 146 mm[Hg] Charbel Arteaga MD Work Phone: 3(717)002-040656 [address] 02-03-2023 09:31-0400 Body height 149.9 cm Maday Talbot MD Work Phone: 6(257)824-659698 [address] 02-03-2023 09:31-0400 Body mass index (BMI) [Ratio] 35.39 kg/m2 Maday Talbot MD Work Phone: 5(720)474-237298 [address] 02-03-2023 09:31-0400 Body weight 79.47 kg Maday Talbot MD Work Phone: [facility] 02-03-2023 09:31-0400 Diastolic blood pressure 72 mm[Hg] Maday Talbot MD Work Phone: [facility] 02-03-2023 09:31-0400 Heart rate 70 /min Maday Talbot MD Work Phone: [facility] 02-03-2023 09:31-0400 Systolic blood pressure 141 mm[Hg] Maday Talbot MD Work Phone: 5(352)358-025798 [address] 01-21-2023 13:10-0400 Heart rate 67 /min Maday Talbot MD Work Phone: 9(489)836-466028 [place] [address] 01-21-2023 13:10-0400 Respiratory rate 23 /min Maday Talbot MD Work Phone: 1(779)887-434028 [place] [address] 01-21-2023 13:10-0400 SaO2% (BldA) [Mass fraction] 95 % Maday Talbot MD Work Phone: 2(946)813-043428 [place] [address] 01-21-2023 13:00-0400 Diastolic blood pressure 70 mm[Hg] Maday Talbot MD Work Phone: 1(812)040-533128 [place] [address] 01-21-2023 13:00-0400 Systolic blood pressure 151 mm[Hg] Maday Talbot MD Work Phone: 7(723)358-584928 [place] [address] 01-21-2023 08:45-0400 Body temperature 97.9 [degF] Maday Talbot MD Work Phone: 1(085)315-596728 [place] [address] 10-30-2022 08:36-0400 Body height 149.9 cm Maday Talbot MD Work Phone: 6(298)054-479828 [place] [address] 10-30-2022 08:36-0400 Body mass index (BMI) [Ratio] 36.07 kg/m2 Maday Talbot MD Work Phone: 1(868)031-687828 [place] [address] 10-30-2022 08:36-0400 Body weight 81.01 kg Maday Talbot MD Work Phone: 5(847)830-693828 [place] [address] 10-30-2022 08:36-0400 Diastolic blood pressure 80 mm[Hg] Maday Talbot MD Work Phone: 8(928)106-477628 [place] [address] 10-30-2022 08:36-0400 Heart rate 73 /min Maday Talbot MD Work Phone: 9(803)686-784228 [place] [address] 10-30-2022 08:36-0400 Respiratory rate 20 /min Maday Talbot MD Work Phone: 7(768)291-377028 [place] [address] 10-30-2022 08:36-0400 SaO2% (BldA) [Mass fraction] 97 % Maday Talbot MD Work Phone: 6(443)161-905828 [place] [address] 10-30-2022 08:36-0400 Systolic blood pressure 146 mm[Hg] Maday Talbot MD Work Phone: 9(622)398-958328 [place] [address] 10-30-2022 07:54-0400 Body mass index (BMI) [Ratio] 34.18 kg/m2 Tayla Zahorujko PAC Work Phone: 7(204)613-606128 [place] [address] 10-30-2022 07:54-0400 Body weight 79.38 kg Tayla Zahorujko PAC Work Phone: 2(323)470-157928 [place] [address] 10-30-2022 07:54-0400 Diastolic blood pressure 72 mm[Hg] Tayla Zahorujko PAC Work Phone: 2(501)234-370528 [place] [address] 10-30-2022 07:54-0400 Heart rate 63 /min Tayla Zahorujko PAC Work Phone: 0(299)397-632728 [place] [address] 10-30-2022 07:54-0400 Systolic blood pressure 158 mm[Hg] Tayla Zahorujko PAC Work Phone: 7(164)133-818028 [place] [address] 09-11-2022 12:03-0400 Body height 152.4 cm Maday Talbot MD Work Phone: 2(995)544-460628 [place] [address] 09-11-2022 12:03-0400 Body mass index (BMI) [Ratio] 34.43 kg/m2 Maday Talbot MD Work Phone: 1(778)401-190728 [place] [address] 09-11-2022 12:03-0400 Body temperature 97.9 [degF] Maday Talbot MD Work Phone: 4(194)118-947428 [place] [address] 09-11-2022 12:03-0400 Body weight 79.97 kg aMday Talbot MD Work Phone: 2(934)206-275828 [place] [address] 09-11-2022 12:03-0400 Diastolic blood pressure 92 mm[Hg] Maday Talbot MD Work Phone: [facility] 09-11-2022 12:03-0400 Heart rate 103 /min Maday Talbot MD Work Phone: [facility] 09-11-2022 12:03-0400 SaO2% (BldA) [Mass fraction] 95 % Maday Talbot MD Work Phone: [facility] 09-11-2022 12:03-0400 Systolic blood pressure 167 mm[Hg] Maday Talbot MD Work Phone: [facility] 08-20-2022 14:44-0400 Body height 152.4 cm Celio Stevenson MD Work Phone: [facility] 08-20-2022 14:44-0400 Body mass index (BMI) [Ratio] 34.18 kg/m2 Celio Stevenson MD Work Phone: [facility] 08-20-2022 14:44-0400 Body weight 79.38 kg Celio Stevenson MD Work Phone: [facility] 08-20-2022 14:44-0400 Heart rate 82 /min Celio Stevenson MD Work Phone: [facility] 08-20-2022 14:44-0400 SaO2% (BldA) [Mass fraction] 96 % Celio Stevenson MD Work Phone: [facility] 07-01-2022 17:49-0400 Diastolic blood pressure 79 mm[Hg] Melody Ren MD Work Phone: [facility] 07-01-2022 17:49-0400 Heart rate 97 /min Melody Ren MD Work Phone: [facility] 07-01-2022 17:49-0400 Systolic blood pressure 178 mm[Hg] Melody Ren MD Work Phone: 0(617)365-139873 [address] 07-01-2022 17:47-0400 Body height 152.4 cm Melody Ren MD Work Phone: 0(802)058-260529 [place] [address] 06-05-2022 15:01-0500 Body height 152.4 cm Melody Ren MD Work Phone: 8(529)679-853429 [place] [address] 06-05-2022 15:01-0500 Diastolic blood pressure 79 mm[Hg] Melody Ren MD Work Phone: 1(861)034-366529 [place] [address] 06-05-2022 15:01-0500 Heart rate 86 /min Melody Ren MD Work Phone: 0(356)749-120229 [place] [address] 06-05-2022 15:01-0500 Systolic blood pressure 180 mm[Hg] Melody Ren MD Work Phone: 9(925)997-271829 [place] [address] 04-25-2022 13:12-0500 Body height 152.4 cm Melody Ren MD Work Phone: 3(744)809-066729 [place] [address] 04-25-2022 13:12-0500 Body mass index (BMI) [Ratio] 34.65 kg/m2 Melody Ren MD Work Phone: 4(046)392-304629 [place] [address] 04-25-2022 13:12-0500 Body weight 80.47 kg Melody Ren MD Work Phone: 3(227)228-805529 [place] [address] 04-25-2022 13:12-0500 Diastolic blood pressure 72 mm[Hg] Melody Ren MD Work Phone: 1(622)030-909829 [place] [address] 04-25-2022 13:12-0500 Heart rate 80 /min Melody Ren MD Work Phone: 8(936)604-828729 [place] [address] 04-25-2022 13:12-0500 Systolic blood pressure 138 mm[Hg] Melody Ren MD Work Phone: 0(526)344-963429 [place] [address] 09-05-2021 14:41-0400 Body height 152.4 cm Maday Talbot MD Work Phone: [facility] 09-05-2021 14:41-0400 Body mass index (BMI) [Ratio] 32.22 kg/m2 Maday Talbot MD Work Phone: [facility] 09-05-2021 14:41-0400 Body weight 74.84 kg Maday Talbot MD Work Phone: [facility] 09-05-2021 14:41-0400 Diastolic blood pressure 71 mm[Hg] Maday Talbot MD Work Phone: [facility] 09-05-2021 14:41-0400 Heart rate 79 /min Maday Talbot MD Work Phone: [facility] 09-05-2021 14:41-0400 SaO2% (BldA) [Mass fraction] 98 % Maday Talbot MD Work Phone: [facility] 09-05-2021 14:41-0400 Systolic blood pressure 126 mm[Hg] Maday Talbot MD Work Phone: [facility] Encounters Encounter Date Encounter Type Care Provider Facility Start: 04-15-2023 Evaluation and management of inpatient NAVEEN Dylan CHEYENNE Facility:[facility] Start: 04-14-2023 ambulatory [facility] Dylan CHEYENNE Facility:[facility] Start: 04-10-2023 Telephone encounter Larisa Brooks RN [facility] [place] Procedures Date Procedure Procedure Detail Performing Clinician [...] Detail Author Start: 08-21-2031 Tetanus vaccination TETANUS [facility] Start: 10-31-2023 Potassium [Moles/volume] in Serum or Plasma POTASSIUM [facility] Start: 05-28-2023 End: 05-28-2023 Patient encounter procedure [facility] [place] Start: 04-25-2023 Thyroid stimulating hormone measurement TSH [facility] Start: 04-14-2023 End: 04-14-2023 Patient encounter procedure 04/14/2023 1:30 PM EST Office Visit [facility] [address] [place] [address] Maday Talbot MD [address] [place] [address] rd [address] [place] [address] [facility] Start: 03-24-2023 End: 03-24-2024 Basic metabolic 2000 panel - Serum or Plasma BASIC METABOLIC PANEL Lab Routine 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), bioprosthetic Permanent atrial fibrillation Essential hypertension Expected: 03/24/2023, Expires: 03/24/2024 [facility] Immunizations Immunization Date Immunization Notes Care Provider Fa cility 02-01-2022 Influenza Vaccine, Quadrivalent, Adjuvanted Melody Ren MD Work Phone: [facility] 02-01-2022 influenza virus vacc ine, unspecified formulation Maday Talbot MD Work Phone: [facility] 08-20-2021 COVID-19 vaccine, Michael Hodges, 50 mcg/0.25 mL booster Melody Ren MD Work Phone: [facility] 08-20-2021 tetanus toxoid, redu jens diphtheria toxoid, and acellular pertussis vaccine, adsorbed Melody Ren MD Work Phone: [facility] 03-02-2021 COVID-19 vaccine, Michael Hodges, 50 mcg/0.25 mL booster Melody Ren MD Work Phone: 6(613)649-945373 [address] 02-19-2021 Influenza Vaccine, Quadrivalent, Adjuvanted Melody Ren MD Work Phone: [facility] 06-28-2020 hepatitis A vaccine, adult dosage Melody Rne MD Work Phone: [facility] 05-26-2020 COVID-19 vaccine, Michael Hodges, 100 mcg/0.5 mL Melody Ren MD Work Phone: 4(422)783-321273 [address] 05-08-2020 COVID-19 vaccine, Michael Hodges, 100 mcg/0.5 mL Melody Ren MD Work Phone: [facility] 04-28-2020 COVID-19 vaccine, Michael Hodges, 100 mcg/0.5 mL Melody Ren MD Work Phone: 3(502)699-944173 [address] 04-07-2020 COVID-19 vaccine, Michael Hodges, 100 mcg/0.5 mL Melody Ren MD Work Phone: [facility] 02-21-2020 zoster vaccine recombinant Melody Ren MD Work Phone: [facility] 10-29-2019 hepatitis A vaccine, adult dosage Melody Ren MD Work Phone: [facility] 10-29-2019 zoster vaccine recombinant Melody Ren MD Work Phone: [facility] 01-07-2018 influenza, injectabl e, quadrivalent, contains preservative Melody Ren MD Work Phone: [facility] 01-06-2018 influenza, high dose seasonal, preservative-free Melody Ren MD Work Phone: [facility] 01-03-2017 influenza, injectabl e, quadrivalent, contains preservative Melody Ren MD Work Phone: [facility] 01-06-2016 influenza virus vacc ine, unspecified formulation Maday Talbot MD Work Phone: [facility] 01-04-2016 influenza, seasonal, injectable Melody Ren MD Work Phone: [facility] 02-05-2014 pneumococcal conjuga te vaccine, 13 valent Melody Ren MD Work Phone: [facility] 08-05-2005 pneumococcal polysaccharide vaccine, 23 valent Melody Ren MD Work Phone: [facility] Payers Date Payer Category Payer Medicare MEDICARE [employer] HMO PPO MEDICARE [employer] HMO PPO [id number] 2017-Present [address] [address] [place] [address] [id number] 2017 Medicare [id number] 1940 Unknown [id number] 1940 Unknown [id number] 1939 Unknown [id number] ..[id number] 1939 Unknown [id number] ..[id number] 1939 Unknown [id number] [id number] 1939 Unknown [id number] [id number] 1939 Unknown [id number] [id number] 1939 Unknown [id number] [id number] 1939 Unknown [id number] [id number] 1939 Unknown [id number] [id number] 1939 Unknown [id number] [id number] 1939 Unknown [id number] [id number] 1939 Unknown [id number] [id number] 1939 Unknown [id number] [id number] 1939 Unknown [id number] [id number] 1939 Unknown [id number] [id number] 1939 Unknown [id number] [id number] 1939 Unknown [id number] [id number] 1939 Unknown [id number] [id number] 1939 Unknown [id number] Social History Date Type Detail Facility Start: 01-15-2016 End: 02-19-2023 Tobacco smoking status NHIS Ex-smoker [facility] Start: 1956 End: 04-07-2003 History of tobacco use Current smoker [facility] Start: 1956 End: 04-07-2003 History of tobacco use Cigarette Smoker [facility] Start: 01-15-2016 End: 04-14-2023 Cigarettes smoked current (pack per day) - Reported 1 [facility] Start: 01-15-2016 End: 02-19-2023 Tobacco use and exposure Smokeless tobacco non-user [facility] Start: 09-05-2021 End: 03-19-2023 Alcohol intake Current drinker of alcohol (finding) [facility] Start: 12-09-2008 History SDOH Alcohol Comment occasionally [facility] Start: 02-09-2015 End: 04-25-2022 Tobacco Comment quit 11 years ago [facility] Start: 1940 Sex Assigned At Not on file [facility] Start: 03-03-2022 End: 04-25-2022 Exposure to SARS-CoV-2 (event) Unable to assess [facility] Start: 04-25-2022 Alcohol Comment Wine with dinn er once in awhile [facility] Start: 05-26-2022 End: 06-05-2022 Exposure to SARS-CoV-2 (event) Not sure [facility] Start: 09-11-2022 End: 04-14-2023 Tobacco use panel [facility] Gender identity Identifies as fe male gender (finding) [facility] Medical Equipment Procedure Code Equipment Code Equipment Origin al Text Equipment Identifier Dates Nichole Starr 58cm - [id number] Start: 02-01-2016 Valve Tavr Evolu t 26 - [id number] Start: 01-31-2016 Clinical Notes 09-05-2021 to 04-15-2023 Telephone Encounter - Vanessa Ruggiero RN - 04/15/2023 3:02 PM ESTTelephone Encounter - Vanessa Ruggiero RN - 04/15/2023 3:02 PM ESTTelephone Encounter - Vanessa Ruggiero RN - 04/15/2023 2:27 PM EST Note Date & Type Note Facility 04-15-2023 Telephone encounter Note Faxed lab order [facility] 04-15-2023 Miscellaneous Notes Faxed lab order MALINA patent's daughter, Silvestre. Will fax lab orders to [facility]. Silvestre wants to know if patient can start cardiac rehab in [place]. After labs ordered will need faxed to [phone] outpatient lab. Images from the original [...] Outside Labs: Received: Yesterday Charbel Arteaga MD [facility] Pool Outside labs noted: K of 3.5 and BUN/Cr of 28/0.95. Please check on the patient with respect to any ongoing symptoms / concerns - especially volume related - which will help guide further care. Spoke with pt's daughter Silvestre. Reports Dot is currently not feeling well - being treated by Customer [employer] Representative for an URI with prednisone and antibiotic. [...] needed. She will follow up with a [employer] message when she gets home. Pt is interested in cardiac rehab. documented in this encounter [facility] 04-15-2023 Telephone encounter Note SW cherie's daughter, Silvestre. Will fax lab orders to [facility]. Silvestre wants to know if patient can start cardiac rehab in [place]. After labs ordered will need faxed to [phone], [facility]. [facility] Telephone encounter Note Images from the original note were not included. Charbel Arteaga MD You21 hours ago (4:23 PM) Plan: continue the furosemide / lasix at 20 mg po bid and the K supplement at 10 mEq po BID; monitor symptoms / findings; obtain a chem 6 on with results to this office. Thank you. [facility] 04-11-2023 Telephone encounter Note SW patient's daughter Silvestre, gave Dr Arteaga's recommendations. [facility] 04-11-2023 Miscellaneous Notes SW patient's [...] Labs: Received: Yesterday Charbel Arteaga MD [facility] Triage Pool Outside labs noted: K of 3.5 and BUN/Cr of 28/0.95. Please check on the patient with respect to any ongoing symptoms / concerns - especially volume related - which will help guide further care. Spoke with pt's daughter Silvestre. Reports Dot is currently not feeling well - being treated by [employer] for an URI with prednisone and antibiotic. [...] needed. She will follow up with a [employer] message when she gets home. Pt is interested in cardiac rehab. documented in this encounter [facility] 04-11-2023 Telephone encounter Note Images [...] to her lower extremity edema. Thank you. [facility] 04-10-2023 Telephone encounter Note Images from the original note were not included. Outside Labs: Received: Yesterday Charbel Arteaga MD [facility] Outside labs noted: K of 3.5 and BUN/Cr of 28/0.95. Please check on the patient with respect to any ongoing symptoms / concerns - especially volume related - which will help guide further care. Spoke with pt's daughter Silvestre. Reports Dot is currently not feeling well - being treated by [employer] Representative for an URI with prednisone and antibiotic. [...] needed. She will follow up with a [employer] message when she gets home. Pt is interested in cardiac rehab. [facility] 04-09-2023 Telephone encounter Note Received lab results from [facility]. Sent to scanning for upload into chart. Copy given to Dr. Arteaga. [facility] 04-09-2023 Miscellaneous Notes Received lab results from [facility]. Sent to scanning for upload into chart. Copy given to Dr. Arteaga. Faxed to [phone] The LVEDP is a blood pressure recording [...] labs are signed, they need faxed to [facility]. Spoke with patient's daughter regarding the [...] Cardiac cath: Received: Today Charbel Arteaga MD [facility] Pool Please update the patient that her cardiac cath procedure was received / reviewed. 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 She did not require additional PTCA. The recommendation is for her to continue medical therapy and follow up. Thank you. Sending mychart. documented in this encounter [facility] 03-24-2023 Telephone encounter Note Faxed to [phone] [facility] 03-24-2023 Telephone encounter Note The [...] labs are signed, they need faxed to [facility]. [facility] 03-21-2023 Telephone encounter Note Spoke with patient's daughter regarding the above results and recommendations. Patient's daughter verbalized understanding. She said there was concerns of the LVEDP. Is this something that needs addressed? She noted that the patient has been more short of breath than normal. She is currently on [address] [facility] 03-20-2023 Telephone encounter Note Images from the original note were not included. Cardiac cath: Received: Today Charbel Arteaga MD [facility] Pool Please update the patient that her cardiac cath procedure was received / reviewed. 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 She did not require additional PTCA. The recommendation is for her to continue medical therapy and follow up. Thank you. Sending mychart. [facility] 03-19-2023 Nurse Note After Visit Summary [...] at time of discharge. Hayley Melendez RN [facility] 03-19-2023 Miscellaneous Notes After Visit Summary [...] Brief Cardiac Catheterization Procedure Note Kiara Martinez ([id number]) Pre Procedural Diagnosis Abnormal stress test [R94.39] [...] Swapnil Gilmore MD - Fellow Procedural Staff Wax Pot Tender: Vandana Knox RN; Patty Gallegos RN Documenter: [...] fib. 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 You are to arrive at [facility] on the 1st floor at 6:00 AM You may use supervisor prepress parking ($10) or park in the [facility] [employer] [facility] just past the [employer] ($3). There is a walkway from the 2nd floor of the garage into the [employer] Lobby. You are to have nothing to [...] please call NOW to notify the lab ([phone]). You may receive sedation during your procedure [...] AFTER THE PROCEDURE. Labs: PLEASE GO TO [facility] TO HAVE YOUR LAB WORK DRAWN [...] REGARDING THE PROCEDURE CALL US AT : [phone] THANK YOU, JEYSON DE LUNA Mirror Painter Scheduling The above instructions were given to [...] an hour. documented in this encounter [facility] 03-19-2023 Surgery Postoperative evaluation and management note Preliminary Report - Brief Cardiac Catheterization Procedure Note Kiara Manrique Juan ([id number]) Pre Procedural Diagnosis Abnormal stress test [R94.39] [...] Swapnil Gilmore MD - Fellow Procedural Staff Wax Pot Tender: Vandana Knox RN; Patty Gallegos RN Documenter: Toshia Hernandez RN Full report to follow Swapnil Gilmore MD March 19, 2023 9:[address] [facility] 03-19-2023 History and physical note PRE-CATH [...] angiography. Tigre Mortensen, DO Fellow, Cardiovascular Medicine [facility] Work Phone: 03-19-2023 History and physical [...] Fellow, Cardiovascular Medicine documented in this encounter [facility] 03-19-2023 Nurse Note Pt arrives [...] monitor shows a fib. 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 You are to arrive at [facility] on the 1st floor at 6:00 AM You may use supervisor prepress parking ($10) or park in the [employer] [facility] [facility] just past the [place] ($3). There is a walkway from the 2nd floor of the garage [facility] You are to have nothing to eat [...] please call NOW to notify the lab ([phone]). You may receive sedation during your procedure [...] AFTER THE PROCEDURE. Labs: PLEASE GO TO [facility] TO HAVE YOUR LAB WORK DRAWN [...] REGARDING THE PROCEDURE CALL US AT : [phone] THANK YOU, JEYSON DE LUNA Mirror Painter Scheduling The above instructions were given to patient verbally over the phone AND VIA MY CHART [facility] 03-06-2023 Nurse Note I called to schedule Ms. Martinez's heart cath. The number we have is her daughters.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 Occlusion 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 without mention of cerebral infarction [facility] Diagnosis Asymptomatic bilateral carotid artery stenosis Occlusion 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 without mention of cerebral infarction [facility] Diagnosis Asymptomatic carotid artery stenosis Occlusion and stenosis of carotid artery without mention of cerebral infarction [facility] Diagnosis Bilateral carotid artery stenosis- Primary Occlusion 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 without mention of cerebral infarction [facility] Diagnosis 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), bioprosthetic Permanent atrial fibrillation Atrial fibrillation Essential hypertension Unspecified essential hypertension Hyperlipidemia, unspecified hyperlipidemia type Asymptomatic bilateral carotid artery stenosis Occlusion 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 without mention of cerebral infarction Pre-operative cardiovascular examination [facility] Diagnosis Obesity: body mass index of [...] Unspecified essential hypertension 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 Nonrheumatic aortic valve stenosis Aortic valve disorders [facility] Diagnosis 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 [facility] Diagnosis 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), bioprosthetic Permanent atrial fibrillation Atrial fibrillation Essential hypertension Unspecified essential hypertension Hyperlipidemia, unspecified hyperlipidemia type Asymptomatic bilateral carotid artery stenosis Occlusion 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 without mention of cerebral infarction Pre-operative cardiovascular examination [facility] Diagnosis 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 [facility] Diagnosis Abnormal stress test Other nonspecific abnormal cardiovascular system function study Abnormal stress test Other nonspecific abnormal cardiovascular system function study [facility] Diagnosis 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 * Cardiac Cath [facility] After - Wrist Site ([facility]) ([facility] Family History No Family History [...] DUPLEX CAROTID BILATERAL Maday Talbot MD [address] [facility] 5th [address] [place] [address] Referral ID Status Reason Start Date Expiration Date V isits Requested Visits Authorized [id number] New Request 09/05/2021 09/30/2022 1 1 Specialty Diagnoses / Procedures Referred By Sammyac t Referred To Contact Neurology Diagnoses Bilateral carotid artery stenosis Dizziness Maday Talbot MD [address] [facility] 5th [address] [place] [address] Referral ID Status Reason Start Date Expiration Date V isits Requested Visits Authorized [id number] New Request 09/05/2021 09/30/2022 1 1 Specialty Diagnoses / Procedures Referred By Sammyac t Referred To Contact Diagnoses Loss of memory Procedures MRI BRAIN WITHOUT CONTRAST NC MRI BRAIN Melody Ren MD [address] [address] Referral ID Status Reason Start Date Expiration Date V isits Requested Visits Authorized [id number] New Request 04/25/2022 05/20/2023 1 1 Referral ID Status Reason Start Date Expiration Date Visits Re quested Visits Authorized [id number] Closed 04/25/2022 05/20/2023 1 1 Specialty Diagnoses / Procedures Referred By Courtney t Referred To Contact Diagnoses Peripheral vertigo involving left ear Procedures MRI INTERNAL AUDITORY CANAL WITH AND WITHOUT CONTRAST NC MRI BRAIN COMBO Melody Ren MD [address] [address] Referral ID Status Reason Start Date Expiration Date Visits Re quested Visits Authorized [id number] Closed 06/07/2022 07/02/2023 1 1 Specialty Diagnoses / Procedures Referred By Contac t Referred To Contact Diagnoses Vestibular schwannoma Procedures MRI INTERNAL AUDITORY CANAL WITH AND WITHOUT CONTRAST NC MRI BRAIN COMBO Celio Stevenson MD [address] [address] Referral ID Status Reason Start Date Expiration Date V isits Requested Visits Authorized [id number] New Request 08/20/2022 09/14/2023 1 1 Specialty Diagnoses / Procedures Referred By Contac t Referred To Contact Diagnoses Bilateral carotid artery stenosis Procedures VASC DUPLEX CAROTID BILATERAL Tayla Carter R, PAC [address] [place] [address] Referral ID Status Reason Start Date Expiration Date V isits Requested Visits Authorized [id number] New Request 03/13/2022 04/07/2023 1 1 Specialty Diagnoses / Procedures Referred By Contac t Referred To Contact Diagnoses Bilateral carotid artery stenosis Procedures CT ANGIO BRAIN/NECK NC CT ANGIO,HEAD COMBO,INCL IMAGE PROCESS NC CT ANGIO,NECK COMBO,INCL IMAGE PROCESS Tayla Carter, PAC [address] [place] [address] Referral ID Status Reason Start Date Expiration Date V isits Requested Visits Authorized [id number] New Request 09/11/2022 10/06/2023 1 1 Specialty Diagnoses / Procedures Referred By Contac t Referred To Contact Diagnoses Asymptomatic bilateral carotid artery stenosis Procedures ECG Tayla Carter R, PAC [address] [place] [address] Referral ID Status Reason Start Date Expiration Date V isits Requested Visits Authorized [id number] New Request 10/30/2022 11/24/2023 1 1 Referral ID Status Reason Start Date Expiration Date Visits Re quested Visits Authorized [id number] Closed 09/11/2022 10/06/2023 1 1 Specialty Diagnoses / Procedures Referred By Contac t Referred To Contact Echocardiography Diagnoses 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 Procedures ECHOCARDIOGRAM NC ECHO HEART XTHORACIC,COMPLETE W DOPPLER Maday Talbot MD [address] [facility] rd 5th [address] [place] [address] Referral ID Status Reason Start Date Expiration Date Visits Re quested Visits Authorized [id number] Closed 01/31/2023 02/25/2024 1 1 Specialty Diagnoses / Procedures Referred By Contac t Referred To Contact Diagnoses 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 Procedures NUC MYOCARD PERF STRESS MIBI PHARM NC CHG MYOCARDIAL SPECT MULTIPLE STUDIES CHG MYOCARDIAL SPECT MULTIPLE STUDIES-T NC CARDIAC STRESS TST,INTERP/REPT ONLY NC CV STRS TST XERS&/OR RX CONT ECG W/O I&R Maday Talbot MD [address] [facility] 5th [address] [address] Referral ID Status Reason Start Date Expiration Date Visits Re quested Visits Authorized [id number] Closed 01/31/2023 02/25/2024 1 1 Specialty Diagnoses / Procedures Referred By Contac t Referred To Contact Procedures ECG Escobar Reaves MD [address] [place] [address] Referral ID Status Reason Start Date Expiration Date V isits Requested Visits Authorized [id number] New Request 03/19/2023 04/12/2024 1 1 Additional Source Comments INFORMATION SOURCE (unrecogn ized section and content) DATE CREATED AUTHOR AUTHOR'S ORGANIZ ATION 04/29/2023 [facility] Reason for Visit (unrecogniz ed section and content) Specialty Diagnoses / Procedures Referred By Contac t Referred To Contact Diagnoses Bilateral carotid artery stenosis Procedures VASC DUPLEX CAROTID BILATERAL VASC DUPLEX CAROTID BILATERAL Maday Talbot MD [address] [facility] 5th [address] [address] Referral ID Status Reason Start Date Expiration Date V isits Requested Visits Authorized [id number] New Request 09/05/2021 09/30/2022 1 1 Reason Comments New Patient Specialty Diagnoses / Procedures Referred By Contac t Referred To Contact Neurology Diagnoses Bilateral carotid artery stenosis Dizziness Maday Talbot MD [address] [facility] 5th [address] [address] Referral ID Status Reason Start Date Expiration Date V isits Requested Visits Authorized [id number] New Request 09/05/2021 09/30/2022 1 1 Specialty Diagnoses / Procedures Referred By Courtney michele Referred To Contact Diagnoses Loss of memory Procedures MRI BRAIN WITHOUT CONTRAST NC MRI BRAIN Melody Ren MD [address] [address] Referral ID Status Reason Start Date Expiration Date Visits Re quested Visits Authorized [id number] Closed 04/25/2022 05/20/2023 1 1 Specialty Diagnoses / Procedures Referred By Courtney t Referred To Contact Diagnoses Peripheral vertigo involving left ear Procedures MRI INTERNAL AUDITORY CANAL WITH AND WITHOUT CONTRAST NC MRI BRAIN COMBO Melody Ren MD [address] [address] Referral ID Status Reason Start Date Expiration Date Visits Re quested Visits Authorized [id number] Closed 06/07/2022 07/02/2023 1 1 Reason Comments Vestibular Schwanoma vestibular schwanno ma pt stated that she is a nodule behind her left ear and she gets dizzy some times Specialty Diagnoses / Procedures Referred By Courtney michele Referred To Contact Diagnoses Bilateral carotid artery stenosis Procedures VASC DUPLEX CAROTID BILATERAL Tayla Carter, PAC [address] [place] [address] Referral ID Status Reason Start Date Expiration Date V isits Requested Visits Authorized [id number] New Request 03/13/2022 04/07/2023 1 1 Reason Comments Follow-up Reason Comments Follow-up Follow up after CTA Specialty Diagnoses / Procedures Referred By Courtney t Referred To Contact Diagnoses Bilateral carotid artery stenosis Procedures CT ANGIO BRAIN/NECK NC CT ANGIO,HEAD COMBO,INCL IMAGE PROCESS NC CT ANGIO,NECK COMBO,INCL IMAGE PROCESS Tayla Carter, PAC [address] [place] [address] Referral ID Status Reason Start Date Expiration Date Visits Re quested Visits Authorized [id number] Closed 09/11/2022 10/06/2023 1 1 Specialty Diagnoses / Procedures Referred By Courtney michele Referred To Contact Diagnoses Bilateral carotid artery stenosis Bilateral carotid artery stenosis [I65.23] Procedures NC PLACE CATH SUBSELECT ART,NECK PLACEMENT CATHETER SELECTIVE ARTERY INITIAL 2ND ORDER THORACIC/BRACHIOCEPHALIC Maday Talbot MD [address] [facility] [address]th [address] [place] [address] [facility] [address] [place] [address] Referral ID Status Reason Start Date Expiration Date Visits Re quested Visits Authorized [id number] 1 1 Reason Comments Surgical Follow-up Follow-up [...] due to calcified coronary lesion Procedures ECHOCARDIOGRAM NC ECHO HEART XTHORACIC,COMPLETE W DOPPLER Maday Talbot MD [address] [facility] 5th [address] [place] [address] [place] [address] Referral ID Status Reason Start Date Expiration Date Visits Re quested Visits Authorized [id number] Closed 01/31/2023 02/25/2024 1 1 Reason Comments Consult Patient here for voc al cord check. 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 Procedures NUC MYOCARD PERF STRESS MIBI PHARM NC CHG MYOCARDIAL SPECT MULTIPLE STUDIES CHG MYOCARDIAL SPECT MULTIPLE STUDIES-T NC CARDIAC STRESS TST,INTERP/REPT ONLY NC CV STRS TST XERS&/OR RX CONT ECG W/O I&R Maday Talbot MD [address] [facility] [address]th [address] [place] [address] Referral ID Status Reason Start Date Expiration Date Visits Re quested Visits Authorized [id number] Closed 01/31/2023 02/25/2024 1 1 Specialty Diagnoses / Procedures Referred By Courtney t Referred To Contact Diagnoses Abnormal stress test Abnormal stress test [R94.39] Procedures NC CATH PLMT L HRT & ARTS W/NJX & ANGIO IMG S&I CORONARY ANGIOGRAM CORONARY BYPASS GRAFT ANGIOGRAM LEFT HEART CATHETERIZATION [facility] [address] [place] [address] [facility] [address] [place] [address] Referral ID Status Reason Start Date Expiration Date Visits Re quested Visits Authorized [id number] 1 1 Reason Onset Date Comments Results 03/20/2023 Reason Onset Date Comments Results 04/10/2023 Care Teams (unrecognized sec tion and content) Tare Man 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 Specialty Start Date End Date Noe Rodriguez MD [address] [facility] [address] [address] PCP - Referring 1 Cardiovascular Disease 02/07/16 Naveen Osullivan MD [address] [place] [address] PCP - General Family Medicine 03/22/16 Noe Rodriguez MD 176 [facility] Phys[facility] [address] [place] [address] Referring Provider Cardiovascular Disease 12/18/15 Larisa Jean, RN Registered Nurse 03/05/16 Tare Man 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 Specialty Start Date End Date Noe Rodriguez MD [address] [facility] [address] [address] PCP - Referring 1 Cardiovascular Disease 02/07/16 Naveen Osullivan MD [address] [place] [address] PCP - General Family Medicine 03/22/16 Noe Rodriguez MD [address] [facility] Phys[facility] [address] [place] [address] Referring Provider Cardiovascular Disease 12/18/15 Larisa Jean, RN Registered Nurse 03/05/16 Tare Man 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 Specialty Start Date End Date Noe Rodriguez MD [address] [place] [address] PCP - Referring 1 Cardiovascular Disease 02/07/16 Naveen Osullivan MD [address] [facility] [place] [address] PCP - General Family Medicine 03/22/16 Noe Rodriguez MD [address] Phys[facility] [address] [place] [address] Referring Provider Cardiovascular Disease 12/18/15 Larisa Jean, RN Registered Nurse 03/05/16 Tare Man 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 Specialty Start Date End Date Noe Rodriguez MD [address] [place] [address] PCP - Referring 1 Cardiovascular Disease 02/07/16 Naveen Osullivan MD [address] [place] [address] PCP - General Family Medicine 03/22/16 Noe Rodriguez MD [address] [facility] [address] [place] [address] Referring Provider Cardiovascular Disease 12/18/15 Larisa Jean, RN Registered Nurse 03/05/16 Tare Man 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 Specialty Start Date End Date Noe Rodriguez MD [address] [place] [address] PCP - Referring 1 Cardiovascular Disease 02/07/16 Naveen Osullivan MD [address] [place] [address] PCP - General Family Medicine 03/22/16 Noe Rodriguez MD [address] [facility] [address] [place] [address] Referring Provider Cardiovascular Disease 12/18/15 Larisa Jean, RN Registered Nurse 03/05/16 Tare Man 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 Specialty Start Date End Date Noe Rodriguez MD [address] [place] [address] PCP - Referring 1 Cardiovascular Disease 02/07/16 Naveen Osullivan MD [address] [place] [facility] [place] [address] PCP - General Family Medicine 03/22/16 Noe Rodriguez MD [address] [facility] [address] [place] [address] Referring Provider Cardiovascular Disease 12/18/15 Larisa Jean RN Registered Nurse 03/05/16 Tare Man 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 Specialty Start Date End Date Noe Rodriguez MD [address] [place] [address] PCP - Referring 1 Cardiovascular Disease 02/07/16 Naveen Osullivan MD [address] [facility] [place] [address] PCP - General Family Medicine 03/22/16 Noe Rodriguez MD [address] [facility] [address] [place] [address] Referring Provider Cardiovascular Disease 12/18/15 Larisa Jean, RN Registered Nurse 03/05/16 Tare Man 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 Specialty Start Date End Date Noe Rodriguez MD [address] [place] [address] PCP - Referring 1 Cardiovascular Disease 02/07/16 Naveen Osullivan MD [address] [place] [address] PCP - General Family Medicine 03/22/16 Noe Rodriguez MD [address] [facility] [place] [address] Referring Provider Cardiovascular Disease 12/18/15 Larisa Jean, RN Registered Nurse 03/05/16 Tare Man 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 Specialty Start Date End Date Noe Rodriguez MD [address] [place] [address] PCP - Referring 1 Cardiovascular Disease 02/07/16 Naveen Osullivan MD [address] [place] [address] PCP - General Family Medicine 03/22/16 Noe Rodriguez MD [address] [facility] [place] [address] Referring Provider Cardiovascular Disease 12/18/15 Larisa Jean, RN Registered Nurse 03/05/16 Tare Man 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 Specialty Start Date End Date Noe Rodriguez MD [address] [place] [address] PCP - Referring 1 Cardiovascular Disease 02/07/16 Naveen Osullivan MD [address] [place] [address] PCP - General Family Medicine 03/22/16 Noe Rodriguez MD [address] [facility] [place] [address] Referring Provider Cardiovascular Disease 12/18/15 Larisa Jean, RN Registered Nurse 03/05/16 Tare Man 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 Specialty Start Date End Date Noe Rodriguez MD [address] [place] [address] PCP - Referring 1 Cardiovascular Disease 02/07/16 Naveen Osullivan MD [address] [place] [facility] [place] [address] PCP - General Family Medicine 03/22/16 Noe Rodriguez MD [address] [facility] [place] [address] Referring Provider Cardiovascular Disease 12/18/15 Larisa Jean RN Registered Nurse 03/05/16 Tare Man 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 Specialty Start Date End Date Noe Rodriguez MD [address] [place] [address] PCP - Referring 1 Cardiovascular Disease 02/07/16 Naveen Osullivan MD [address] [place] [facility] [place] [address] PCP - General Family Medicine 03/22/16 Noe Rodriguez MD [address] [facility] [place] [address] Referring Provider Cardiovascular Disease 12/18/15 Larisa Jean, RN Registered Nurse 03/05/16 Tare Man 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 Specialty Start Date End Date Noe Rodriguez MD [address] [place] [address] PCP - Referring 1 Cardiovascular Disease 02/07/16 Naveen Osullivan MD [address] [place] [address] PCP - General Family Medicine 03/22/16 Noe Rodriguez MD [address] [facility] [place] [address] Referring Provider Cardiovascular Disease 12/18/15 Larisa Jean, RN Registered Nurse 03/05/16 Tare Man 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 Specialty Start Date End Date Noe Rodriguez MD [address] [facility] [place] [address] PCP - Referring 1 Cardiovascular Disease 02/07/16 Naveen Osullivan MD [address] [place] [address] PCP - General Family Medicine 03/22/16 Noe Rodriguez MD [address] [facility] [place] [address] Referring Provider Cardiovascular Disease 12/18/15 Larisa Jean, RN Registered Nurse 03/05/16 Tare Man 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 Specialty Start Date End Date Noe Rodriguez MD [address] [place] [address] PCP - Referring 1 Cardiovascular Disease 02/07/16 Naveen Osullivan MD [address] [place] [address] PCP - General Family Medicine 03/22/16 Noe Rodriguez MD [address] [place] [address] Referring Provider Cardiovascular Disease 12/18/15 Larisa Jean, RN Registered Nurse 03/05/16 Tare Man 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 Specialty Start Date End Date Noe Rodriguez MD [address] [place] [address] PCP - Referring 1 Cardiovascular Disease 02/07/16 Naveen Osullivan MD [address] [place] [address] PCP - General Family Medicine 03/22/16 Noe Rodriguez MD [address] [place] [address] Referring Provider Cardiovascular Disease 12/18/15 Larisa Jean, RN Registered Nurse 03/05/16 03/05/23 Tare Man 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 Specialty Start Date End Date Noe Rodriguez MD [address] [place] [address] PCP - Referring 1 Cardiovascular Disease 02/07/16 Naveen Osullivan MD [address] [facility] [place] [address] PCP - General Family Medicine 03/22/16 Noe Rodriguez MD [address] [place] [address] Referring Provider Cardiovascular Disease 12/18/15 Tare Man 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 Specialty Start Date End Date Noe Rodriguez MD [address] [place] [address] PCP - Referring 1 Cardiovascular Disease 02/07/16 Naveen Osullivan MD [address] [place] [address] PCP - General Family Medicine 03/22/16 Noe Rodriguez MD [address] [place] [address] Referring Provider Cardiovascular Disease 12/18/15 Tare Man 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 Specialty Start Date End Date Noe Rodriguez MD [address] [place] [address] PCP - Referring 1 Cardiovascular Disease 02/07/16 Naveen Osullivan MD [address] [place] [address] PCP - General Family Medicine 03/22/16 Noe Rodriguez MD [address] [place] [address] Referring Provider Cardiovascular Disease 12/18/15 Tare Man 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 Specialty Start Date End Date Noe Rodriguez MD [address] [place] [address] PCP - Referring 1 Cardiovascular Disease 02/07/16 Naveen Osullivan MD [address] [place] [address] PCP - General Family Medicine 03/22/16 Noe Rodriguez MD [address] [place] [address] Referring Provider Cardiovascular Disease 12/18/15 Scheduled Active [...] Intra-op/Intra-Proc 0747 (Given - Provid er: Maday Talbto MD - Comment: Given to sterile field) [...] 0933, Intra-op/Intra-Proc 0829 (Given - Provid er: aPtty Gallegos RN) Heparin injection (CANCELED) NEEDED, Starting [...] BE BASED ON THE PRIMARY CLINICAL RECORDS. [email or web address] provides no warranty or guarantee of the accuracy or completeness of information in this document.
== END | disposition home or self-care (01) ==
LOC: MTRAD 14:34
PROVIDERS: PCP Family Medicine; Referring Provider Family Medicine; Visit Provider Family Medicine
DX: M51.37 Other intervertebral disc degeneration, lumbosacral region (principal)
CPT/HCPCS: 72110

== ENCOUNTER → 2023-05-23 | Outpatient (CLI) | payer MEDICARE, SELFPAY ==
--- NOTE | 2023-05-23 14:30 | RAD_ITS ---
EXAM: XR CHEST, 2 VIEWS CLINICAL INDICATION: COPD TECHNIQUE: Frontal and lateral views of the chest. COMPARISON: XR Chest dated 05/08/2023 FINDINGS: LUNGS AND PLEURAL SPACES: Blunting of the left costophrenic angle may be due to a small amount of fluid or pleural thickening. HEART: Surgical changes of coronary artery bypass graft (CABG). Normal heart size. MEDIASTINUM: No mediastinal or hilar mass. BONES/JOINTS: No acute abnormality. TUBES, LINES AND DEVICES: Transcatheter aortic valve replacement (TAVR) noted. RAD/Chest PA and Lateral IMPRESSION: No acute cardiopulmonary abnormality. No interval change. Electronically Signed: Narciso Boggs MD at 17:02 EST ,
[2023-05-23 16:04] LABS: Absolute Lymphocyte Count 1.11 X10^3/uL (0.83-4.51); Absolute Neutrophil Count 4.3 X10^3/uL (2.0-7.7); Basophil# 0.09 X10^3/uL; Basophil% 1.3 % (0-1); Eosinophil# 0.14 X10^3/uL; Hemoglobin 13.8 g/dL (12.0-15.0); Lymphocyte # 1.11 X10^3/ul (0.83-4.51); Lymphocyte % 15.9 % (19-41); Mean Corp Hgb Conc 32.1 g/dL (32-36); Mean Corpuscular Hgb 30.6 pg (27.0-32.0); Mean Corpuscular Volume 95.3 fL (81-99); Mean Platelet Vol. 14.2 fl (6.2-12.0); Monocyte# 1.21 X10^3/uL; Monocyte% 17.4 % (0-10); NRBC Flagged by Analyzer 0.4 % (0-5); Neutrophil # 4.33 X10^3/uL (2.7-7.7); Neutrophil % 62.1 % (47-70); POSITIVE COUNT YES; Platelet Count 70 K/mm3 (150-450); RBC Distribution Width CV 16.1 % (11.6-14.6); Red Blood Count 4.51 M/mm3 (4.2-5.4)
[2023-05-23 16:10] LABS: Differential Indicated SCAN CRITERIA MET
[2023-05-23 16:15] LABS: ALB/GLOB Ratio 0.7 RATIO (0.9-2.4); AST(SGOT) 133 U/L (15-37); Alanine Aminotransfer ALT/SGPT 168 U/L (13-56); Albumin, Serum 2.7 g/dL (3.2-5.0); Alkaline Phosphatase 186 U/L (45-117); Anion Gap 5 (5-15); BUN 27 mg/dL (7-18); BUN/Creat Ratio 16.5 RATIO (10-20); Calcium,Total 9.2 mg/dL (8.5-10.1); Chloride 108 mmol/L (98-107); Creatinine, Serum 1.64 mg/dL (0.55-1.02); EST Glomerular Filtration Rate 32 mL/min (>60); Est Glom Filt Rate - Afr Amer 38 mL/min (>60); Globulin 3.9 g/dL (2.2-4.2); Glucose 164 mg/dL (74-106); Potassium 3.7 mmol/L (3.5-5.1); Protein, Total 6.6 g/dL (6.4-8.2); Sodium Level 138 mmol/L (136-145)
[2023-05-23 16:32] LABS: Erythrocyte Sedimentation Rate 39 mm/hr (0-30)
[2023-05-23 16:41] LABS: Differential Comment SCANNED; Platelet Estimate MOD DEC (ADEQ); Platelet Morphology LARGE
== END | disposition home or self-care (01) ==
LOC: MTLAB 14:24
PROVIDERS: PCP Family Medicine; Referring Provider Family Medicine; Visit Provider Family Medicine
DX: M51.16 Intervertebral disc disorders with radiculopathy, lumbar region (principal); J44.9 Chronic obstructive pulmonary disease, unspecified
CPT/HCPCS: 36415; 71046; 80053; 85025; 85652; 86140

== ENCOUNTER → 2023-05-23 | Outpatient (CLI) | payer MEDICARE, SELFPAY ==
--- OUTSIDE RECORDS SUMMARY | 2023-05-23 17:31 | XMS RPT_ITS | CCD ---
Author Name Unknown Address [address] [place] [address] Organization [facility] Providers Care Third Mate Name Role Phone Noe Rodriguez MD Unavailable [phone] Noe Rodriguez MD Unavailable [phone] Larisa Jean RN Unavailable Unavailable Abran HWANG, Naveen A Primary Care Provider Noe Rodriguez MD Unavailable [phone] Noe Rodriguez MD Unavailable [phone] Naveen Osullivan MD A Primary Care Provider OSULLIVAN, NAVEEN A Primary Care Unavailable OSULLIVAN, NAVEEN A Primary Care Unavailable ZAHORUJKO, TAYLA R Referring Unavailable ZAHORUJKO, TAYLA R Attending Unavailable OSULLIVAN, NAVEEN A Primary Care Unavailable ZAHORUJKO, TAYLA R Attending Unavailable ZAHORUJKO, TAYLA R Referring Unavailable OSULLIVAN, NAVEEN A Referring Unavailable MADAY TALBOT Attending Unavailable OSULLIVAN, NAVEEN A Primary Care Unavailable OSULLIVAN, NAVEEN A Primary Care Unavailable CHARBEL ARTEAGA Attending Unavailable SELF, SELF Referring Unavailable OSULLIVAN, NAVEEN A Referring Unavailable OSULLIVAN, NAVEEN A Primary Care Unavailable VON TOBIAS Attending Unavailable OSULLIVAN, NAVEEN A Primary Care Unavailable ZAHORUJKO, TAYLA R Referring Unavailable ZAHORUJKO, TAYLA R Attending Unavailable DAHIANA, MADAY Attending Unavailable OSULLIVAN, NAVEEN A Primary Care Unavailable ZAHORUJKO, TAYLA R Referring Unavailable CELIO STEVENSON Attending Unavailable OSULLIVAN, NAVEEN A Primary Care Unavailable SELF, SELF Referring Unavailable GRANT, MELODY Referring Unavailable GRANT, MELODY Attending Unavailable OSULLIVAN, NAVEEN A Primary Care Unavailable GRANT, MELODY Referring Unavailable GRANT, MELODY Attending Unavailable OSULLIVAN, NAVEEN A Primary Care Unavailable ОЛЬГА DRAPER Attending Unavailable OSULLIVAN, NAVEEN A Primary Care Unavailable SELF, SELF Referring Unavailable OSULLIVAN, NAVEEN A Referring Unavailable OSULLIVAN, NAVEEN A Primary Care Unavailable MADAY TALBOT Attending Unavailable CELIO STEVENSON Referring Unavailable CELIO STEVENSON Attending Unavailable OSULLIVAN, NAVEEN A Primary Care Unavailable MADAY TALBOT Attending Unavailable OSULLIVAN, NAVEEN A Primary Care Unavailable TAYLA CARTER Referring Unavailable OSULLIVAN, NAVEEN A Primary Care Unavailable TAYLA CARTER R Referring Unavailable TAYLA CARTER Attending Unavailable OSULLIVAN, NAVEEN A Referring Unavailable MADAY TALBOT Attending Unavailable OSULLIVAN, NAVEEN A Primary Care Unavailable OSULLIVAN, NAVEEN A Primary Care Unavailable MADAY TALBOT Admitting Unavailable MADAY TALBOT Attending Unavailable MADAY TALBOT Attending Unavailable DAHIANA, MADAY Admitting Unavailable OSULLIVAN, NAVEEN A Primary Care Unavailable OSULLIVAN, NAVEEN A Primary Care Unavailable JUAN JOSE HA Attending JUAN JOSE Perez Admitting Dileep OSULLIVANJOHNATHANIC A Primary Care Unavailable Allergies Allergy Classification Reported Allergen(s) Allergy Type Date of Onset Reaction(s) Facility (20 sources) Lanolin Drug Allergy 09-29-2008 [facility] (20 sources) nickel sulfate Drug Allergy 12-09-2008 [facility] (20 sources) *Adhesive Tape Propensity to adverse reactions 03-22-2016 [facility] Medications Current Medications Medication Drug Class(es) [...] Coronary atherosclerosis; Translations: [Atherosclerotic heart disease of [place] coronary artery without angina pectoris] Onset: 5 [...] hemorrhage; Translations: [Gastrointestinal hemorrhage, unspecified] 01-30-2016 Episodic Heart valve disorders (20 sources) Aortic [...] [Other chronic pain] Onset: 6 Chronic Other nutritional; endocrine; and metabolic disorders (20 [...] Translations: [Dizziness and giddiness] Onset: 07-01-2022 Episodic Genitourinary symptoms and ill-defined conditions (20 sources) Increased frequency of urination; Translations: [Frequency of micturition] Onset: 12-29-2015 12-29-2015 Episodic Other non-epithelial cancer of skin (20 sources) Malignant basal cell neoplasm of skin; Translations: [Basal cell carcinoma of skin, unspecified] Onset: 01-30-2016 01-30-2016 Episodic Residual codes; unclassified (2 sources) Other [...] Time Vital Sign Value Performing Clinician Faci lit 03-19-2023 12:15-0500 Diastolic blood pressure 93 mm[Hg] Juan Jose Ha MD Work Phone: [facility] 03-19-2023 12:15-0500 Heart rate 76 /min Juan Jose Ha MD Work Phone: [facility] 03-19-2023 12:15-0500 Respiratory rate 20 /min Juan Jose Ha MD Work Phone: [facility] 03-19-2023 12:15-0500 SaO2% (BldA) [Mass fraction] 96 % Juan Jose Ha MD Work Phone: [facility] 03-19-2023 12:15-0500 Systolic blood pressure 128 mm[Hg] Juan Jose Ha MD Work Phone: [facility] 03-19-2023 06:39-0500 Body height 149.9 cm Juan Jose Ha MD Work Phone: [facility] 03-19-2023 06:39-0500 Body mass index (BMI) [Ratio] 34.91 kg/m2 Juan Jose Ha MD Work Phone: [facility] 03-19-2023 06:39-0500 Body temperature 98.2 [degF] Juan Jose Ha MD Work Phone: [facility] 03-19-2023 06:39-0500 Body weight 78.4 kg Juan Jose Ha MD Work Phone: [facility] 03-05-2023 09:00-0500 Body height 149.9 cm Tayla Zahorujko PAC Work Phone: [facility] 03-05-2023 09:00-0500 Body mass index (BMI) [Ratio] 35.14 kg/m2 Tayla Zahorujko PAC Work Phone: [facility] 03-05-2023 09:00-0500 Body weight 78.93 kg Tayla Zahorujko PAC Work Phone: [facility] 03-05-2023 09:00-0500 Diastolic blood pressure 74 mm[Hg] Tayla Zahorujko PAC Work Phone: [facility] 03-05-2023 09:00-0500 Heart rate 80 /min Tayla Zahorujko PAC Work Phone: [facility] 03-05-2023 09:00-0500 Systolic blood pressure 126 mm[Hg] Tayla Zahorujko PAC Work Phone: [facility] 02-21-2023 15:21-0500 Body height 149.9 cm Von Tobias MD Work Phone: [facility] 02-21-2023 15:21-0500 Body mass index (BMI) [Ratio] 35.14 kg/m2 Von Tobias MD Work Phone: [facility] 02-21-2023 15:21-0500 Body weight 78.93 kg Von Tobias MD Work Phone: [facility] 02-21-2023 15:21-0500 Respiratory rate 14 /min Von Tobias MD Work Phone: [facility] 02-19-2023 11:55-0500 Body height 149.9 cm Tayla Zahorujko PAC Work Phone: [facility] 02-19-2023 11:55-0500 Body mass index (BMI) [Ratio] 35.2 kg/m2 Tayla Zahorujko PAC Work Phone: [facility] 02-19-2023 11:55-0500 Body weight 79.1 kg Tayla Zahorujko PAC Work Phone: [facility] 02-19-2023 11:55-0500 Diastolic blood pressure 78 mm[Hg] Tayla Zahorujko PAC Work Phone: [facility] 02-19-2023 11:55-0500 Systolic blood pressure 146 mm[Hg] Tayla Zahorujko PAC Work Phone: [facility] 02-19-2023 10:26-0500 Body height 149.9 cm Charbel Arteaga MD Work Phone: [facility] 02-19-2023 10:26-0500 Body mass index (BMI) [Ratio] 35.22 kg/m2 Charbel Arteaga MD Work Phone: [facility] 02-19-2023 10:26-0500 Body weight 79.11 kg Charbel Arteaga MD Work Phone: 4(096)202-588474 [place] [address] 02-19-2023 10:26-0500 Diastolic blood pressure 78 mm[Hg] Charbel Arteaga MD Work Phone: 8(156)203-821159 [address] 02-19-2023 10:26-0500 Heart rate 78 /min Charbel Arteaga MD Work Phone: 6(113)610-801959 [address] 02-19-2023 10:26-0500 Systolic blood pressure 146 mm[Hg] Charbel Arteaga MD Work Phone: [facility] 02-03-2023 09:31-0400 Body height 149.9 cm Maday Talbot MD Work Phone: [facility] 02-03-2023 09:31-0400 Body mass index (BMI) [Ratio] 35.39 kg/m2 Maday Talbot MD Work Phone: [facility] 02-03-2023 09:31-0400 Body weight 79.47 kg Maday Talbot MD Work Phone: [facility] 02-03-2023 09:31-0400 Diastolic blood pressure 72 mm[Hg] Maday Talbot MD Work Phone: [facility] 02-03-2023 09:31-0400 Heart rate 70 /min Maday Talbot MD Work Phone: [facility] 02-03-2023 09:31-0400 Systolic blood pressure 141 mm[Hg] Maday Talbot MD Work Phone: 2(002)161-255109 [place] [address] 01-21-2023 13:10-0400 Heart rate 67 /min Maday Talbot MD Work Phone: 5(500)406-349909 [place] [address] 01-21-2023 13:10-0400 Respiratory rate 23 /min Maday Talbot MD Work Phone: 5(374)771-416709 [place] [address] 01-21-2023 13:10-0400 SaO2% (BldA) [Mass fraction] 95 % Maday Talbot MD Work Phone: 7(595)856-073409 [place] [address] 01-21-2023 13:00-0400 Diastolic blood pressure 70 mm[Hg] Maday Talbot MD Work Phone: 5(352)458-929709 [place] [address] 01-21-2023 13:00-0400 Systolic blood pressure 151 mm[Hg] Maday Talbot MD Work Phone: 9(429)451-731509 [place] [address] 01-21-2023 08:45-0400 Body temperature 97.9 [degF] Maday Talbot MD Work Phone: 8(923)038-054409 [place] [address] 10-30-2022 08:36-0400 Body height 149.9 cm Maday Talbot MD Work Phone: 8(322)454-803009 [place] [address] 10-30-2022 08:36-0400 Body mass index (BMI) [Ratio] 36.07 kg/m2 Maday Talbot MD Work Phone: 8(050)365-453209 [place] [address] 10-30-2022 08:36-0400 Body weight 81.01 kg Maday Talbot MD Work Phone: 7(459)551-950109 [place] [address] 10-30-2022 08:36-0400 Diastolic blood pressure 80 mm[Hg] Maday Talbot MD Work Phone: 1(650)233-253909 [place] [address] 10-30-2022 08:36-0400 Heart rate 73 /min Maday Talbot MD Work Phone: 7(475)532-006009 [place] [address] 10-30-2022 08:36-0400 Respiratory rate 20 /min Maday Talbot MD Work Phone: [facility] 10-30-2022 08:36-0400 SaO2% (BldA) [Mass fraction] 97 % Maday Talbot MD Work Phone: 1(454)622-539509 [place] [address] 10-30-2022 08:36-0400 Systolic blood pressure 146 mm[Hg] Maday Talbot MD Work Phone: 1(505)657-289509 [place] [address] 10-30-2022 07:54-0400 Body mass index (BMI) [Ratio] 34.18 kg/m2 Tayla Zahorujko PAC Work Phone: 2(583)258-649709 [place] [address] 10-30-2022 07:54-0400 Body weight 79.38 kg Tayla Zahorujko PAC Work Phone: 4(874)392-877409 [place] [address] 10-30-2022 07:54-0400 Diastolic blood pressure 72 mm[Hg] Tayla Zahorujko PAC Work Phone: 3(459)433-749009 [place] [address] 10-30-2022 07:54-0400 Heart rate 63 /min Tayla Zahorujko PAC Work Phone: 2(932)898-784709 [place] [address] 10-30-2022 07:54-0400 Systolic blood pressure 158 mm[Hg] Tayla Zahorujko PAC Work Phone: 6(948)924-410909 [place] [address] 09-11-2022 12:03-0400 Body height 152.4 cm Maday Talbot MD Work Phone: 1(532)430-621409 [place] [address] 09-11-2022 12:03-0400 Body mass index (BMI) [Ratio] 34.43 kg/m2 Maday Talbot MD Work Phone: 1(006)439-351509 [place] [address] 09-11-2022 12:03-0400 Body temperature 97.9 [degF] Maday Talbot MD Work Phone: 9(579)776-128409 [place] [address] 09-11-2022 12:03-0400 Body weight 79.97 kg Maday Talbot MD Work Phone: [facility] 09-11-2022 12:03-0400 Diastolic blood pressure 92 mm[Hg] Maday Talbot MD Work Phone: [facility] 09-11-2022 12:03-0400 Heart rate 103 /min Maday Talbot MD Work Phone: [facility] 09-11-2022 12:03-0400 SaO2% (BldA) [Mass fraction] 95 % Maday Talbot MD Work Phone: [facility] 09-11-2022 12:03-0400 Systolic blood pressure 167 mm[Hg] Maday Talbot MD Work Phone: [facility] 08-20-2022 14:44-0400 Body height 152.4 cm Celio Stevenson MD Work Phone: [facility] 08-20-2022 14:44-0400 Body mass index (BMI) [Ratio] 34.18 kg/m2 Celio Stevenson MD Work Phone: [facility] 08-20-2022 14:44-0400 Body weight 79.38 kg Celio Stevenson MD Work Phone: [facility] 08-20-2022 14:44-0400 Heart rate 82 /min Celio Stevenson MD Work Phone: [facility] 08-20-2022 14:44-0400 SaO2% (BldA) [Mass fraction] 96 % Celio Stevenson MD Work Phone: [facility] 07-01-2022 17:49-0400 Diastolic blood pressure 79 mm[Hg] Melody Ren MD Work Phone: [facility] 07-01-2022 17:49-0400 Heart rate 97 /min Melody Ren MD Work Phone: [facility] 07-01-2022 17:49-0400 Systolic blood pressure 178 mm[Hg] Melody Ren MD Work Phone: 4(075)148-519678 [place] [address] 07-01-2022 17:47-0400 Body height 152.4 cm Melody Ren MD Work Phone: 6(239)613-247878 [place] [address] 06-05-2022 15:01-0500 Body height 152.4 cm Melody Ren MD Work Phone: 0(674)800-696678 [place] [address] 06-05-2022 15:01-0500 Diastolic blood pressure 79 mm[Hg] Melody Ren MD Work Phone: 2(617)584-676378 [place] [address] 06-05-2022 15:01-0500 Heart rate 86 /min Melody Ren MD Work Phone: 3(613)368-758078 [place] [address] 06-05-2022 15:01-0500 Systolic blood pressure 180 mm[Hg] Melody Ren MD Work Phone: 8(499)854-384878 [place] [address] 04-25-2022 13:12-0500 Body height 152.4 cm Melody Ren MD Work Phone: 9(130)692-962178 [place] [address] 04-25-2022 13:12-0500 Body mass index (BMI) [Ratio] 34.65 kg/m2 Melody Ren MD Work Phone: 2(330)694-726578 [place] [address] 04-25-2022 13:12-0500 Body weight 80.47 kg Melody Ren MD Work Phone: 5(522)657-407078 [place] [address] 04-25-2022 13:12-0500 Diastolic blood pressure 72 mm[Hg] Melody Ren MD Work Phone: 5(264)125-493378 [place] [address] 04-25-2022 13:12-0500 Heart rate 80 /min Melody Ren MD Work Phone: 4(843)362-774278 [place] [address] 04-25-2022 13:12-0500 Systolic blood pressure 138 mm[Hg] Melody Ren MD Work Phone: [facility] 09-05-2021 14:41-0400 Body height 152.4 cm Maday Talbot MD Work Phone: [facility] 09-05-2021 14:41-0400 Body mass index (BMI) [Ratio] 32.22 kg/m2 Maday Talbot MD Work Phone: [facility] 09-05-2021 14:41-0400 Body weight 74.84 kg Maday Talbot MD Work Phone: [facility] 09-05-2021 14:41-0400 Diastolic blood pressure 71 mm[Hg] Maday Talbot MD Work Phone: [facility] 09-05-2021 14:41-0400 Heart rate 79 /min Maday Talbot MD Work Phone: [facility] 09-05-2021 14:41-0400 SaO2% (BldA) [Mass fraction] 98 % Maday Talbot MD Work Phone: [facility] 09-05-2021 14:41-0400 Systolic blood pressure 126 mm[Hg] Maday Talbot MD Work Phone: [facility] Encounters Encounter Date Encounter Type Care Provider Facility Start: 05-28-2023 ambulatory CELIO STEVENSON [facility] y:[facility] Start: 04-15-2023 Evaluation and management of inpatient NAVEEN OSULLIVAN Facility:[facility] Start: 04-14-2023 ambulatory NAVEEN OSULLIVAN Facility:[facility] Start: 04-10-2023 Telephone encounter Larisa Brooks RN [facility] Procedures Date Procedure Procedure Detail Performing Clinician [...] Detail Author Start: 08-21-2031 Tetanus vaccination TETANUS [facility] Start: 10-31-2023 Potassium [Moles/volume] in Serum or Plasma POTASSIUM [facility] Start: 05-28-2023 End: 05-28-2023 Patient encounter procedure [facility] [place] Start: 04-25-2023 Thyroid stimulating hormone measurement TSH [facility] Start: 04-14-2023 End: 04-14-2023 Patient encounter procedure 04/14/2023 1:30 PM EST Office Visit [facility] [address] [place] [address] Maday Talbot MD [address] [place] [address] [facility] [place] Start: 03-24-2023 End: 03-24-2024 Basic metabolic 2000 panel - Serum or Plasma BASIC METABOLIC PANEL Lab Routine 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), bioprosthetic Permanent atrial fibrillation Essential hypertension Expected: 03/24/2023, Expires: 03/24/2024 [facility] Immunizations Immunization Date Immunization Notes Care Provider Fa cility 02-01-2022 Influenza Vaccine, Quadrivalent, Adjuvanted Melody Ren MD Work Phone: 4(734)676-447284 [place] [address] 02-01-2022 influenza virus vacc ine, unspecified formulation Maday Talbot MD Work Phone: [facility] 08-20-2021 COVID-19 vaccine, Michael Hodges, 50 mcg/0.25 mL booster Melody Ren MD Work Phone: [facility] 08-20-2021 tetanus toxoid, redu jens diphtheria toxoid, and acellular pertussis vaccine, adsorbed Melody Ren MD Work Phone: 4(719)532-014984 [place] [address] 03-02-2021 COVID-19 vaccine, Michael Hodges, 50 mcg/0.25 mL booster Melody Ren MD Work Phone: 0(407)749-570678 [place] [address] 02-19-2021 Influenza Vaccine, Quadrivalent, Adjuvanted Melody Ren MD Work Phone: 7(251)194-414678 [place] [address] 06-28-2020 hepatitis A vaccine, adult dosage Melody Ren MD Work Phone: 6(893)835-043978 [place] [address] 05-26-2020 COVID-19 vaccine, Michael Hodges, 100 mcg/0.5 mL Melody Ren MD Work Phone: 0(643)033-767678 [place] [address] 05-08-2020 COVID-19 vaccine, Michael Hodges, 100 mcg/0.5 mL Melody Ren MD Work Phone: 7(011)317-797278 [place] [address] 04-28-2020 COVID-19 vaccine, Michael Hodges, 100 mcg/0.5 mL Melody Ren MD Work Phone: 0(451)892-681078 [place] [address] 04-07-2020 COVID-19 vaccine, Michael Hodges, 100 mcg/0.5 mL Melody Ren MD Work Phone: 1(209)000-092478 [place] [address] 02-21-2020 zoster vaccine recombinant Melody Ren MD Work Phone: 4(595)325-742493 [address] 10-29-2019 hepatitis A vaccine, adult dosage Melody Ren MD Work Phone: [facility] 10-29-2019 zoster vaccine recombinant Melody Ren MD Work Phone: [facility] 01-07-2018 influenza, injectabl e, quadrivalent, contains preservative Melody Ren MD Work Phone: [facility] 01-06-2018 influenza, high dose seasonal, preservative-free Melody Ren MD Work Phone: [facility] 01-03-2017 influenza, injectabl e, quadrivalent, contains preservative Melody Ren MD Work Phone: [facility] 01-06-2016 influenza virus vacc ine, unspecified formulation Maday Talbot MD Work Phone: [facility] 01-04-2016 influenza, seasonal, injectable Melody Ren MD Work Phone: [facility] 02-05-2014 pneumococcal conjuga te vaccine, 13 valent Melody Ren MD Work Phone: [facility] 08-05-2005 pneumococcal polysaccharide vaccine, 23 valent Melody Ren MD Work Phone: [facility] Payers Date Payer Category Payer Medicare MEDICARE [employer] HMO PPO MEDICARE [employer] O PPO [id number] 2017-Present [address] [address] [place] [address] [id number] 2017 Medicare [id number] 1940 Unknown [id number] 1939 Unknown [id number] [id number] 1939 Unknown [id number] 2..[id number] 1939 Unknown [id number] [id number] 1939 Unknown [id number] [id number] 1939 Unknown [id number] [id number] 1939 Unknown [id number] [id number] 1939 Unknown [id number] [id number] 1939 Unknown [id number] [id number] 1939 Unknown [id number] 2.16.840.1.134080.3.579.2.594 1939 Unknown [id number] [id number] 1939 Unknown [id number] [id number] 1939 Unknown [id number] [id number] 1939 Unknown [id number] [id number] 1939 Unknown [id number] [id number] 1939 Unknown [id number] [id number] 1939 Unknown [id number] [id number] 1939 Unknown [id number] [id number] 1939 Unknown [id number] [id number] 1939 Unknown [id number] [id number] 1939 Unknown [id number] [id number] Social History Date Type Detail Facility Start: 01-15-2016 End: 02-19-2023 Tobacco smoking status NHIS Ex-smoker [facility] Start: 1956 End: 04-07-2003 History of tobacco use Current smoker [facility] Start: 1956 End: 04-07-2003 History of tobacco use Cigarette Smoker [facility] Start: 01-15-2016 End: 04-14-2023 Cigarettes smoked current (pack per day) - Reported 1 [facility] Start: 01-15-2016 End: 02-19-2023 Tobacco use and exposure Smokeless tobacco non-user [facility] Start: 09-05-2021 End: 03-19-2023 Alcohol intake Current drinker of alcohol (finding) [facility] Start: 12-09-2008 History SDOH Alcohol Comment occasionally [facility] Start: 02-09-2015 End: 04-25-2022 Tobacco Comment quit 11 years ago [facility] Start: 1940 Sex Assigned At Not on file [facility] Start: 03-03-2022 End: 04-25-2022 Exposure to SARS-CoV-2 (event) Unable to assess [facility] Start: 04-25-2022 Alcohol Comment Wine with dinn er once in awhile [facility] Start: 05-26-2022 End: 06-05-2022 Exposure to SARS-CoV-2 (event) Not sure [facility] Start: 09-11-2022 End: 04-14-2023 Tobacco use panel [facility] Gender identity Identifies as fe male gender (finding) [facility] Medical Equipment Procedure Code Equipment Code Equipment Origin al Text Equipment Identifier Dates Nichole Starr 58cm - [id number] Start: 02-01-2016 Valve Tavr Evolu t 26 - [id number] Start: 01-31-2016 Clinical Notes 09-05-2021 to 04-15-2023 Telephone Encounter - Vanessa Ruggiero RN - 04/15/2023 3:02 PM ESTTelephone Encounter - Vanessa Ruggiero RN - 04/15/2023 3:02 PM ESTTelephone Encounter - Vanessa Ruggiero RN - 04/15/2023 2:27 PM EST Note Date & Type Note Facility 04-15-2023 Telephone encounter Note Faxed lab order [facility] 04-15-2023 Miscellaneous Notes Faxed lab order MALINA patent's daughter, Silvestre. Will fax lab orders to [facility]. Silvestre wants to know if patient can start cardiac rehab in [place]. After labs ordered will need faxed to [phone], [facility] outpatient lab. Images from the original note were not included. Charbel Arteaga MD You21 hours ago (4:23 PM) Plan: continue the furosemide / lasix at 20 mg po bid and the K supplement at 10 mEq po BID; monitor symptoms / findings; obtain a chem 6 on with results to this office. Thank you. MALINA patient's daughter Silvestre, gave Dr Arteaga's recommendations. Images from the original note were not included. Charbel Arteaga MD You14 minutes ago (1:10 PM) Patient update noted. Plan: ask the patient to take her furosemide / lasix at 20 mg po BID and her potassium supplement 10 mEq po BID today through Friday morning of 04/14/23 and provide an update on her symptoms with respect to her breathing and volume status with respect to her lower extremity edema. Thank you. Images from the original note were not included. Outside Labs: Received: Yesterday Charbel Arteaga MD [facility] Triage Pool Outside labs noted: K of 3.5 and BUN/Cr of 28/0.95. Please check on the patient with respect to any ongoing symptoms / concerns - especially volume related - which will help guide further care. Spoke with pt's daughter Silvestre. Reports Dot is currently not feeling well - being treated by [facility] [employer] for an URI with prednisone and antibiotic. [...] needed. She will follow up with a Hive guard unlimited message when she gets home. Pt is interested in cardiac rehab. documented [facility] this [facility] Telephone encounter Note SW cherie's daughter, Silvestre. Will fax lab orders to [facility]. Silvestre wants to know if patient can start cardiac rehab in [place]. After labs ordered will need faxed to [phone], [facility] outpatient lab. [facility] 04-15-2023 Telephone encounter Note Images from the original note were not included. Charbel Arteaga MD You21 hours ago (4:23 PM) Plan: continue the furosemide / lasix at 20 mg po bid and the K supplement at 10 mEq po BID; monitor symptoms / findings; obtain a chem 6 on with results to this office. Thank you. [facility] 04-11-2023 Telephone encounter Note SW patient's daughter Silvestre, gave Dr Arteaga's recommendations. [facility] 04-11-2023 Miscellaneous Notes SW patient's daughter [...] Labs: Received: Yesterday Charbel Arteaga MD [facility] Outside labs noted: K of 3.5 and BUN/Cr of 28/0.95. Please check on the patient with respect to any ongoing symptoms / concerns - especially volume related - which will help guide further care. Spoke with pt's daughter Silvestre. Reports Dot is currently not feeling well - being treated by [facility] [employer] for an URI with prednisone and antibiotic. [...] needed. She will follow up with a Hive guard unlimited message when she gets home. Pt is interested in cardiac rehab. documented in this encounter [facility] 04-11-2023 Telephone encounter Note Images from [...] to her lower extremity edema. Thank you. [facility] 04-10-[facility]23 Telephone encounter Note Images from the original note were not included. Outside Labs: Received: Yesterday MD [facility] [place] Triage Pool Outside labs noted: K of 3.5 and BUN/Cr of 28/0.95. Please check on the patient with respect to any ongoing symptoms / concerns - especially volume related - which will help guide further care. Spoke with pt's daughter Silvestre. Reports Dot is currently not feeling well - being treated by [facility] for an URI with prednisone and antibiotic. [...] needed. She will follow up with a Hive guard unlimited message when she gets home. Pt is interested in cardiac rehab. [facility] 04-09-2023 Telephone encounter Note Received lab results from [facility]. Sent to scanning for upload into chart. Copy given to Dr. Arteaga. [facility] 04-09-2023 Miscellaneous Notes Received lab results from [facility]. Sent to scanning for upload into chart. Copy given to Dr. Arteaga. Faxed to [phone] The LVEDP is a blood pressure recording [...] labs are signed, they need faxed to [facility]. Spoke with patient's [...] Cardiac cath: Received: Today Charbel Arteaga MD [facility] Please update the patient that her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 Active [...] at 0823, Until Fri01/21/23 at 0845, Intra-op/Intra-Proc 0823 (Given - Provid er: Maday Talbot MD) [...] NEEDED, Starting on Fri01/21/23 at 0854, Until 01/27/23 at 1437, Moderate Pain
Higher dose may [...] BE BASED ON THE PRIMARY CLINICAL RECORDS. [facility] [employer] [facility]. provides no warranty or guarantee of the accuracy or completeness of information in this document.
== END | disposition home or self-care (01) ==
LOC: LABSPEC 15:31
PROVIDERS: PCP Family Medicine; Visit Provider Family Medicine
DX: M51.16 Intervertebral disc disorders with radiculopathy, lumbar region (principal)
CPT/HCPCS: 87077; 87086; 87088; 87186

== ENCOUNTER 2023-05-24 01:10 | Inpatient (IN) | payer MEDICARE, SELFPAY ==
[2023-05-24] VITALS (15 sets, daily range): BP systolic 92–125; BP diastolic 51–84; PULSE 81–124; RESP 16–20; TEMP 36.1–36.7; O2SAT 17–97; BMI 33.5; BMI 33.7
--- NOTE | 2023-05-24 01:23 | EKG12_ITS ---
Test Reason : DYSRHYTHMIA Blood Pressure : / mmHG Vent. Rate : 114 BPM Atrial Rate : 000 BPM P-R Int : 000 ms QRS Dur : 090 ms QT Int : 344 ms P-R-T Axes : 000 070 176 degrees QTc Int : 474 ms Atrial fibrillation with rapid ventricular response Low voltage QRS Nonspecific T changes Abnormal ECG Confirmed by Jesse Camacho ([id number]), science editor LUIS JAMES ([id number]) on 05/26/2023 9:57:48 AM Referred By: Confirmed By:Jesse Camacho
--- NOTE | 2023-05-24 01:23 | CT_ITS ---
EXAM: CT abdomen and pelvis without contrast HISTORY: pyelonephritis TECHNIQUE: No intravenous contrast. A radiation dose optimization technique was used for this scan. COMPARISON: None. LIMITATIONS: None. LOWER CHEST: Small left pleural effusion. Atelectasis in the left lower lobe with questionable superimposed mild infection or aspiration. LIVER: Enlarged. Contour is mildly nodular. Sophia hepatic lymph nodes are enlarged. GALLBLADDER: Removed. BILE DUCTS: Normal. PANCREAS: Few calcifications. No peripancreatic inflammatory change. SPLEEN: Normal. ADRENAL GLANDS: Normal. KIDNEYS/URETERS/BLADDER: A vascular calcification in the left renal hilum. No obstructing stones or hydronephrosis. Mild nonspecific perinephric stranding bilaterally. AORTA: Atherosclerotic calcification of the abdominal aorta. Ectasia of the infrarenal abdominal aorta measuring 2 cm. BOWEL/MESENTERY: Diverticula are without evidence of diverticulitis. No small bowel obstruction. APPENDIX: Normal. PERITONEUM: Trace free pelvic fluid. REPRODUCTIVE ORGANS: Hysterectomy. BONES/SOFT TISSUES: Degenerative changes of the lumbar spine. Mild loss of height of the L5 vertebral body. OTHER: None. CONCLUSION: Evaluation for pyelonephritis is limited without intravenous contrast. Mild bilateral perinephric fat stranding is nonspecific. This is most often long-standing and clinically insignificant although an acute inflammatory or infectious process is not entirely excluded. Diverticulosis without evidence of diverticulitis. Small left pleural effusion with mild atelectasis. Superimposed mild infection or aspiration not excluded. Electronically Signed: Lázaro Can MD at 3:07 EST , CT/Abdomen/Pelvis without Cont IMPRESSION: undefined
--- NOTE | 2023-05-24 01:27 | EX.ED.DYSGE1 ---
HPI History of Present Illness Chief Complaint: Shortness of Breath Detail of Chief Complaint: Shortness of breath, back pain, vomiting Informant: patient Narrative Narrative: Patient presents tonight secondary to nausea and vomiting after taking antibiotics. She has had shortness of breath and back pain for about the last 6 weeks. Patient states that she was seen by her PCP this week and diagnosed with a UTI. She was put on Keflex and Pyridium. Tonight she vomited after taking the medication and is not sure that she kept it down. She has had some mild dysuria. She complains of pain in her mid back but states it is mostly midline. [facility] Medical History Afib Atherosclerosis of coronary artery bypass graft without angina pectoris Atherosclerosis of coronary artery of [place] heart without angina pectoris Carotid artery stenosis CHF (congestive heart failure) Chronic anemia COPD with acute exacerbation Degeneration of intervertebral disc of lumbosacral region Depression Dyspnea Essential hypertension GERD (gastroesophageal reflux disease) GI bleed (~02/16/16) History of GI bleed (02/2016) History of non-ST elevation myocardial infarction (NSTEMI) (06/24/05) HLD (hyperlipidemia) Hypothyroidism Left bundle branch block Lumbar facet arthropathy Lumbosacral spondylosis Non-rheumatic aortic stenosis Obesity Old myocardial infarction ALMA (obstructive sleep apnea) Persistent atrial fibrillation Scarlet fever Severe aortic stenosis Thyroid nodule Home Medications levothyroxine 88 mcg tablet 88 mcg PO DAILY 11/23/13 [History Last Taken 03/19/22] multivitamin-ferrous fumarate-folic acid 18 mg-400 mcg tablet 1 ea PO DAILY 02/07/17 [History Last Taken Unknown] calcium carbonate 500 mg-vitamin D3 5 mcg (200 unit) tablet (Os-Christian 500 + D3) 1 tab PO BID 11/28/17 [History Last Taken Unknown] magnesium oxide 400 mg (241.3 mg magnesium) tablet (MagOx) 400 mg PO DAILY 12/31/18 [History Last Taken Unknown] Disability Parking Placard #1 ea 05/30/20 [Rx Last Taken Unknown] aspirin 81 mg tablet,delayed release (Adult Aspirin Regimen) 81 mg PO DAILY 05/02/22 [History Last Taken Unknown] isosorbide mononitrate 20 mg tablet See Rx Instructions .Route .COMPLEX #180 tabs 06/10/22 [Rx Last Taken Unknown] rosuvastatin 20 mg tablet See Rx Instructions .Route .COMPLEX #90 tabs 10/28/22 [Rx Last Taken Unknown] tiotropium 2.5 mcg-olodaterol 2.5 mcg/actuation mist for inhalation (Stiolto Respimat) 2 inh inhalation DAILY #4 grams 10/28/22 [Rx Last Taken Unknown] apixaban 5 mg tablet (Eliquis) 5 mg PO BID #60 tabs 12/10/22 [Rx Last Taken Unknown] nitroglycerin 0.4 mg sublingual tablet See Rx Instructions .Route .COMPLEX #25 tabs 04/02/23 [Rx Last Taken Unknown] albuterol sulfate 90 mcg/actuation aerosol inhaler (Ventolin HFA) 2 puff inhalation Q4H PRN shortness of breath or wheezing #18 grams 04/08/23 [Rx Last Taken Unknown] losartan 50 mg tablet 50 mg PO DAILY #90 tabs 04/08/23 [Rx Last Taken Unknown] pantoprazole 40 mg tablet,delayed release 40 mg PO DAILY #90 tabs 04/08/23 [Rx Last Taken Unknown] albuterol sulfate 2.5 mg/3 mL (0.083 %) solution for nebulization 2.5 mg (3 mL) inhalation Q4H PRN Sob &/Or Wheezing #180 mL 05/08/23 [Rx Last Taken Unknown] furosemide 20 mg tablet 20 mg PO BID Swelling 05/08/23 [History Last Taken Unknown] potassium chloride 10 mEq tablet,extended release 10 meq PO BID When you take Lasix for swelling 05/08/23 [History Last Taken Unknown] fluticasone furoate 200 mcg/actuation blister powder for inhalation (Arnuity Ellipta) 1 inh inhalation QDAY #30 ea 05/12/23 [Rx Last Taken Unknown] Allergy/AdvReac Type Severity Reaction Status Date / Time adhesive AdvReac Rash Verified 05/20/23 12:46 nickel AdvReac Rash Verified 05/20/23 12:46 wool AdvReac Rash Verified 05/20/23 12:46 Family History Mother CAD (coronary artery disease) Hypertension Alzheimer disease Daughter CAD (coronary artery disease) Myocardial infarction Sister Breast cancer Myocardial infarction Brother Myocardial infarction Father CVA (cerebral vascular accident) Heart disease Hypertension Aneurysm and dissection of heart Surgical History H/O aortic valve replacement (01/31/16) History of aortic valve replacement with bioprosthetic valve (~01/31/16) History of cardiac catheterization (~2015) History of cataract extraction (~2008) History of colonoscopy (~2007) History of colonoscopy (~2015) History of electrophysiologic study (02/02/16) History of hysterectomy History of inguinal herniorrhaphy History of lumpectomy of left breast History of partial thyroidectomy (~2008) History of squamous cell carcinoma excision Hx of cholecystectomy Previous back surgery S/P CABG x 2 (10/22/05) S/P CABG x 3 (~1986) Status post Mohs surgery for basal cell carcinoma (~2007) Stented coronary artery (~06/24/05) Social History Smoking Status: Former smoker quit date: 04/07/02 pack-years: 35 second hand exposure: No alcohol intake: never substance use type: does not use caffeine: Yes Type: coffee Number of servings: 2 ROS ROS ED Constitutional Constitutional ED: Denies chills or fever(s) Eyes Eyes: Denies change in vision or discharge from eye(s) ENT ENT ED: Denies discharge from eye(s) or sore throat Cardiovascular Cardiovascular: Denies chest pain or palpitations Respiratory/Chest Respiratory/Chest: Reports cough and dyspnea Gastrointestinal Gastrointestinal: Reports abdominal pain, nausea and vomiting; Denies diarrhea Genitourinary Genitourinary ED: Reports dysuria Musculoskeletal Musculoskeletal: Reports back pain; Denies extremity pain Integumentary Denies Abrasions or rash Neurologic Neurologic: Denies headache(s) or weakness Psychiatric Psychiatric: Denies anxiety or depression Allergic/Immunologic Allergic/Immunologic ED: Denies lip swelling or urticaria EXAM Physical Exam Const Vital Signs: 05/24/23 01:11 05/24/23 01:15 05/24/23 01:15 Temperature 97.1 F L 97.1 F L 97.1 F L Temperature Source Temporal Temporal Temporal Pulse Rate 124 H 120 H 124 H Respiratory Rate 18 18 19 H Respiratory Effort Respiratory Depth Respiratory Pattern Blood Pressure 125/58 H 125/58 H 125/58 H Blood Pressure Mean 80 80 80 Pulse Ox 95 95 95 Oxygen Delivery Method Room Air Room Air Room Air 05/24/23 01:19 05/24/23 02:15 05/24/23 03:15 Temperature 97.4 F L 98 F Temperature Source Temporal Oral Pulse Rate 115 H 112 H Respiratory Rate 19 H 17 Respiratory Effort Short of Breath Respiratory Depth Normal Respiratory Pattern Normal Blood Pressure 106/62 92/55 L Blood Pressure Mean 76 67 Pulse Ox 91 92 Oxygen Delivery Method Room Air Room Air Room Air 05/24/23 03:15 05/24/23 04:00 Temperature 98 F 97 F L Temperature Source Oral Temporal Pulse Rate 105 H 104 H Respiratory Rate 19 H 16 Respiratory Effort Respiratory Depth Respiratory Pattern Blood Pressure 92/55 L 100/51 L Blood Pressure Mean 67 67 Pulse Ox 92 93 Oxygen Delivery Method Room Air Room Air Positive well nourished and well developed General Appearance ED: well developed HEENT Reports moist mucous membranes Eyes EOMs intact bilaterally Chest Wall inspection of chest normal and palpation of chest normal Resp normal respiratory effort and clear to auscultation bilaterally Cardio Rate: tachycardic GI GI Narrative: Abdomen soft with left upper quadrant tenderness to palpation. No guarding or rebound. Extremity normal to inspection Neuro oriented x3 Psych mental status grossly normal Skin no rashes or lesions noted MDM MDM MDM Narrative Medical decision making narrative: Patient placed on ekg monitor. EKG obtained to evaluate for cardiac arrhythmia/ischemia. Chest x-ray obtained to evaluate for acute lung pathology, cardiac size, or mediastinal abnormality. IV line established. Labwork obtained to evaluate for leukocytosis, anemia, and electrolyte derangement. CT scan of the abdomen pelvis obtained to evaluate for pyelonephritis, renal obstruction, or other acute abnormality. History & Record Review Discussion w/independent historian: Patient Lab Data Attestation: I reviewed the patient's lab results. Labs: Laboratory Results - last 24 hr 05/24/23 05/24/23 05/24/23 01:22 01:30 05:20 WBC 8.1 RBC 4.71 Hgb 14.2 Hct 43.4 MCV 92.1 MCH 30.1 MCHC 32.7 RDW Std Deviation 53.7 H RDW Coeff of Ryan 16.0 H Plt Count 69 L MPV TNP Immature Gran % (Auto) 1.000 H Neut % (Auto) 58.7 Lymph % (Auto) 17.2 L Waldo % (Auto) 20.1 H Eos % (Auto) 2.0 Baso % (Auto) 1.0 Absolute Neuts (auto) 4.7 Absolute Lymphs (auto) 1.39 Nucleated RBC % 0.5 PT INR APTT Sodium 136 Potassium 3.9 Chloride 104 Carbon Dioxide 23.0 Anion Gap 9 BUN 28 H Creatinine 1.48 H Estim Creat Clear Calc 26.13 Est GFR (MDRD) Af Amer 43 L Est GFR (MDRD) Non-Af 36 L BUN/Creatinine Ratio 18.9 Glucose 141 H Lactic Acid 1.5 Calcium 9.5 Total Bilirubin 2.30 H Direct Bilirubin 1.58 H AST 137 H ALT 163 H Alkaline Phosphatase 215 H Total Protein 6.9 Albumin 2.9 L Globulin 4.0 Urine Color Sheila Urine Clarity Cloudy Urine pH 5.0 Ur Specific [place] 1.025 Urine Protein 30 H Urine Glucose (UA) Normal Urine Ketones 5 H Urine Occult Blood 25 H Urine Nitrite Positive H Urine Bilirubin 6 H Urine Urobilinogen 8 H Ur Leukocyte Esterase 500 H Urine RBC 10-25 SEEN Urine WBC >100 SEEN Ur Squamous Epith Cells 5-10 SEEN Ur Renal Epithelial Cell 10-25 SEEN Urine Bacteria 3+ Hyaline Casts 0-5 SEEN Fine Granular Casts 0 SEEN Coarse Granular Casts 0 SEEN Urine Mucus 0 SEEN 05/24/23 05:32 WBC RBC Hgb Hct MCV MCH MCHC RDW Std Deviation RDW Coeff of Ryan Plt Count MPV Immature Gran % (Auto) Neut % (Auto) Lymph % (Auto) Waldo % (Auto) Eos % (Auto) Baso % (Auto) Absolute Neuts (auto) Absolute Lymphs (auto) Nucleated RBC % PT 18.5 H INR 1.5 APTT 36.9 H Sodium Potassium Chloride Carbon Dioxide Anion Gap BUN Creatinine Estim Creat Clear Calc Est GFR (MDRD) Af Amer Est GFR (MDRD) Non-Af BUN/Creatinine Ratio Glucose Lactic Acid Calcium Total Bilirubin Direct Bilirubin AST ALT Alkaline Phosphatase Total Protein Albumin Globulin Urine Color Urine Clarity Urine pH Ur Specific [place] Urine Protein Urine Glucose (UA) Urine Ketones Urine Occult Blood Urine Nitrite Urine Bilirubin Urine Urobilinogen Ur Leukocyte Esterase Urine RBC Urine WBC Ur Squamous Epith Cells Ur Renal Epithelial Cell Urine Bacteria Hyaline Casts Fine Granular Casts Coarse Granular Casts Urine Mucus Radiography Diagnostic Testing: Clinical Impression(s) from Imaging Studies Abdomen/Pelvis CT 05/24/23 01:23 IMPRESSION: undefined Chest X-Ray 05/24/23 02:00 IMPRESSION: Small left pleural effusion with associated atelectasis. Superimposed mild infection or aspiration not excluded. Electronically Signed: Lázaro Can MD at 2:50 EST , Treatment and Re-Evaluation :: CBC reveals a normal white count 8.1 with a hemoglobin of 14.2. Platelet count is noted to be low at 69,000. It appears her platelet count is normally between 130 and 190. It was noted to be low yesterday as well. Chemistry studies reveal a BUN of 28 and a creatinine 1.48. It appears her baseline creatinine is around 0.9 and has been slowly rising for the last 3 weeks. It is slightly improved when compared to yesterday's values. Glucose is 141. Lactic acid is normal at 1.5. Total bilirubin is 2.3, direct bilirubin is 1.58. AST is 137, ALT is 163, alk phos is 215. These numbers were also elevated yesterday. The last time I can see LFTs were done was approximately a year and a half ago and they were normal at that time. She had her cholecystectomy in 1988. I spoke with Dr. Barton, as I do have concern with these abnormal lab findings and the fact the patient has been sick for approximately 6 weeks now and not feeling better. She has had at least 4 visits to healthcare provider in the last 3 weeks. We will send off a hepatitis panel and add coags at this time. He did recommend observation in the hospital for MRCP and further workup. I will speak with hospitalist. Urinalysis was able to be obtained prior to the patient being admitted upstairs. She does have evidence of significant UTI with positive nitrites, greater than 100 white cells, and 3+ bacteria. Urine culture has been sent and she will be given a dose of IV Rocephin. Discharge Plan Dx/Rx/DC Orders Clinical Impression: Elevated LFTs, Back pain, Dyspnea, Thrombocytopenia, UTI (urinary tract infection) Disposition Disposition: Acute Care Hospital [facility]
[2023-05-24 01:31] LABS: Absolute Lymphocyte Count 1.39 X10^3/uL (0.83-4.51); Absolute Neutrophil Count 4.7 X10^3/uL (2.0-7.7); Basophil# 0.08 X10^3/uL; Eosinophil# 0.16 X10^3/uL; Hematocrit 43.4 % (37-47); Hemoglobin 14.2 g/dL (12.0-15.0); Lymphocyte # 1.39 X10^3/ul (0.83-4.51); Lymphocyte % 17.2 % (19-41); Mean Corp Hgb Conc 32.7 g/dL (32-36); Mean Corpuscular Hgb 30.1 pg (27.0-32.0); Mean Corpuscular Volume 92.1 fL (81-99); Monocyte# 1.62 X10^3/uL; Monocyte% 20.1 % (0-10); NRBC Flagged by Analyzer 0.5 % (0-5); Neutrophil # 4.73 X10^3/uL (2.7-7.7); Neutrophil % 58.7 % (47-70); POSITIVE COUNT YES; POSITIVE DIFFERENTIAL YES; Platelet Count 69 K/mm3 (150-450); RBC Distribution Width SD 53.7 fl (35.1-43.9); Red Blood Count 4.71 M/mm3 (4.2-5.4); White Blood Count 8.1 K/mm3 (4.4-11.0)
[2023-05-24 01:49] LABS: Differential Indicated SCAN CRITERIA MET
--- NOTE | 2023-05-24 02:00 | RAD_ITS ---
INDICATION: sob EXAMINATION: Frontal view of the chest COMPARISON: Chest x-ray May 23, 2023. FINDINGS: Frontal view of the chest was obtained. The cardiac silhouette is not enlarged. Aortic valve prosthesis. Small left pleural effusion. Mild opacities at the left lung base, similar to the prior exam. No pneumothorax. Median sternotomy. RAD/Chest 1 View (Portable) IMPRESSION: Small left pleural effusion with associated atelectasis. Superimposed mild infection or aspiration not excluded. Electronically Signed: Lázaro Can MD at 2:50 EST ,
[2023-05-24 02:03] LABS: AST(SGOT) 137 U/L (15-37); Alanine Aminotransfer ALT/SGPT 163 U/L (13-56); Albumin, Serum 2.9 g/dL (3.2-5.0); Alkaline Phosphatase 215 U/L (45-117); Anion Gap 9 (5-15); BUN 28 mg/dL (7-18); BUN/Creat Ratio 18.9 RATIO (10-20); Bilirubin, Direct 1.58 mg/dL (0.00-0.30); Calcium,Total 9.5 mg/dL (8.5-10.1); Chloride 104 mmol/L (98-107); Creatinine, Serum 1.48 mg/dL (0.55-1.02); EST Glomerular Filtration Rate 36 mL/min (>60); Est Glom Filt Rate - Afr Amer 43 mL/min (>60); Estimated Creatinine Clearance 26.13 ml/min; Glucose 141 mg/dL (74-106); Potassium 3.9 mmol/L (3.5-5.1); Protein, Total 6.9 g/dL (6.4-8.2); Sodium Level 136 mmol/L (136-145)
[2023-05-24] MEDS: Ondansetron 4 MG/2 ML Vial IV ×2 (02:13→10:19)
[2023-05-24] MEDS: 0.9% Normal Saline (1000mL) 1,000 ML 150 ML IV ×3 (02:13→21:49)
[2023-05-24 02:14] LABS: Lactic Acid 1.5 mmol/L (0.4-1.9)
--- OUTSIDE RECORDS SUMMARY | 2023-05-24 03:15 | XMS RPT_ITS | CCD ---
Author Name Unknown Address [address] [place] [address] Organization [facility] Care Team Providers Care Automatic Pilot Mechanic Name Role Phone Noe Rodriguez MD Unavailable Noe Rodriguez MD Unavailable [phone] Larisa Jean RN Unavailable Unavailable Abran HWANG, Naveen A Primary Care Provider [phone] Noe Rodriguez MD Unavailable [phone] Noe Rodriguez MD Unavailable [phone] Naveen Osullivan MD A Primary Care [...] Facility (20 sources) Lanolin Drug Allergy 09-29-2008 [facility] (20 sources) nickel sulfate Drug Allergy 12-09-2008 [facility] (20 sources) *Adhesive Tape Propensity to adverse reactions 03-22-2016 [facility] Medications Current Medications Medication Drug Class(es) Dates [...] Coronary atherosclerosis; Translations: [Atherosclerotic heart disease of [place] coronary artery without angina pectoris] Onset: 5 [...] mm[Hg] Juan Jose Ha MD Work Phone: [facility] 03-19-2023 12:15-0500 Heart rate 76 /min Juan Jose Ha MD Work Phone: [facility] 03-19-2023 12:15-0500 Respiratory rate 20 /min Juan Jose Ha MD Work Phone: [facility] 03-19-2023 12:15-0500 SaO2% (BldA) [Mass fraction] 96 % Juan Jose Ha MD Work Phone: [facility] 03-19-2023 12:15-0500 Systolic blood pressure 128 mm[Hg] Juan Jose Ha MD Work Phone: [facility] 03-19-2023 06:39-0500 Body height 149.9 cm Juan Jose Ha MD Work Phone: [facility] 03-19-2023 06:39-0500 Body mass index (BMI) [Ratio] 34.91 kg/m2 Juan Jose Ha MD Work Phone: [facility] 03-19-2023 06:39-0500 Body temperature 98.2 [degF] Juan Jose Ha MD Work Phone: [facility] 03-19-2023 06:39-0500 Body weight 78.4 kg Juan Jose Ha MD Work Phone: [facility] 03-05-2023 09:00-0500 Body height 149.9 cm Tayla Zahorujko PAC Work Phone: [facility] 03-05-2023 09:00-0500 Body mass index (BMI) [Ratio] 35.14 kg/m2 Tayla Zahorujko PAC Work Phone: [facility] 03-05-2023 09:00-0500 Body weight 78.93 kg Tayla Zahorujko PAC Work Phone: [facility] 03-05-2023 09:00-0500 Diastolic blood pressure 74 mm[Hg] Tayla Zahorujko PAC Work Phone: [facility] 03-05-2023 09:00-0500 Heart rate 80 /min Tayla Zahorujko PAC Work Phone: [facility] 03-05-2023 09:00-0500 Systolic blood pressure 126 mm[Hg] Tayla Zahorujko PAC Work Phone: [facility] 02-21-2023 15:21-0500 Body height 149.9 cm Von Tobias MD Work Phone: [facility] 02-21-2023 15:21-0500 Body mass index (BMI) [Ratio] 35.14 kg/m2 Von Tobias MD Work Phone: [facility] 02-21-2023 15:21-0500 Body weight 78.93 kg Von Tobias MD Work Phone: [facility] 02-21-2023 15:21-0500 Respiratory rate 14 /min Von Tobias MD Work Phone: [facility] 02-19-2023 11:55-0500 Body height 149.9 cm Tayla Zahorujko PAC Work Phone: [facility] 02-19-2023 11:55-0500 Body mass index (BMI) [Ratio] 35.2 kg/m2 Tayla Zahorujko PAC Work Phone: [facility] 02-19-2023 11:55-0500 Body weight 79.1 kg Tayla Zahorujko PAC Work Phone: [facility] 02-19-2023 11:55-0500 Diastolic blood pressure 78 mm[Hg] Tayla Zahorujko PAC Work Phone: [facility] 02-19-2023 11:55-0500 Systolic blood pressure 146 mm[Hg] Tayla Zahorujko PAC Work Phone: [facility] 02-19-2023 10:26-0500 Body height 149.9 cm Charbel Arteaga MD Work Phone: [facility] 02-19-2023 10:26-0500 Body mass index (BMI) [Ratio] 35.22 kg/m2 Charbel Arteaga MD Work Phone: [facility] 02-19-2023 10:26-0500 Body weight 79.11 kg Charbel Arteaga MD Work Phone: 4(352)227-660493 [place] [address] 02-19-2023 10:26-0500 Diastolic blood pressure 78 mm[Hg] Charbel Arteaga MD Work Phone: 9(751)850-629466 [address] 02-19-2023 10:26-0500 Heart rate 78 /min Charbel Arteaga MD Work Phone: 0(084)768-164166 [address] 02-19-2023 10:26-0500 Systolic blood pressure 146 mm[Hg] Charbel Arteaga MD Work Phone: [facility] 02-03-2023 09:31-0400 Body height 149.9 cm Maday Talbot MD Work Phone: [facility] 02-03-2023 09:31-0400 Body mass index (BMI) [Ratio] 35.39 kg/m2 Maday Talbot MD Work Phone: [facility] 02-03-2023 09:31-0400 Body weight 79.47 kg Maday Talbot MD Work Phone: [facility] 02-03-2023 09:31-0400 Diastolic blood pressure 72 mm[Hg] Maday Talbot MD Work Phone: [facility] 02-03-2023 09:31-0400 Heart rate 70 /min Maday Talbot MD Work Phone: [facility] 02-03-2023 09:31-0400 Systolic blood pressure 141 mm[Hg] Maday Talbot MD Work Phone: 6(560)801-581840 [place] [address] 01-21-2023 13:10-0400 Heart rate 67 /min Maday Talbot MD Work Phone: 2(226)652-458540 [place] [address] 01-21-2023 13:10-0400 Respiratory rate 23 /min Maday Talbot MD Work Phone: 4(141)402-588440 [place] [address] 01-21-2023 13:10-0400 SaO2% (BldA) [Mass fraction] 95 % Maday Talbot MD Work Phone: 6(266)917-250440 [place] [address] 01-21-2023 13:00-0400 Diastolic blood pressure 70 mm[Hg] Maday Talbot MD Work Phone: 0(466)191-968140 [place] [address] 01-21-2023 13:00-0400 Systolic blood pressure 151 mm[Hg] Maday Talbot MD Work Phone: 1(103)316-163240 [place] [address] 01-21-2023 08:45-0400 Body temperature 97.9 [degF] Maday Talbot MD Work Phone: 8(639)249-559940 [place] [address] 10-30-2022 08:36-0400 Body height 149.9 cm Maday Talbot MD Work Phone: 3(902)357-305340 [place] [address] 10-30-2022 08:36-0400 Body mass index (BMI) [Ratio] 36.07 kg/m2 Maday Talbot MD Work Phone: 7(014)755-458240 [place] [address] 10-30-2022 08:36-0400 Body weight 81.01 kg Maday Talbot MD Work Phone: 1(238)266-626640 [place] [address] 10-30-2022 08:36-0400 Diastolic blood pressure 80 mm[Hg] Maday Talbot MD Work Phone: 8(162)839-065540 [place] [address] 10-30-2022 08:36-0400 Heart rate 73 /min Maday Talbot MD Work Phone: 3(474)469-634040 [place] [address] 10-30-2022 08:36-0400 Respiratory rate 20 /min Maday Talbot MD Work Phone: [facility] 10-30-2022 08:36-0400 SaO2% (BldA) [Mass fraction] 97 % Maday Talbot MD Work Phone: 3(181)781-303140 [place] [address] 10-30-2022 08:36-0400 Systolic blood pressure 146 mm[Hg] Maday Talobt MD Work Phone: 6(888)955-315040 [place] [address] 10-30-2022 07:54-0400 Body mass index (BMI) [Ratio] 34.18 kg/m2 Tayla Zahorujko PAC Work Phone: 3(124)100-879240 [place] [address] 10-30-2022 07:54-0400 Body weight 79.38 kg Tayla Zahorujko PAC Work Phone: 6(940)551-480940 [place] [address] 10-30-2022 07:54-0400 Diastolic blood pressure 72 mm[Hg] Tayla Zahorujko PAC Work Phone: 8(813)003-265440 [place] [address] 10-30-2022 07:54-0400 Heart rate 63 /min Tayla Zahorujko PAC Work Phone: 2(081)188-709040 [place] [address] 10-30-2022 07:54-0400 Systolic blood pressure 158 mm[Hg] Tayla Zahorujko PAC Work Phone: 5(392)276-556640 [place] [address] 09-11-2022 12:03-0400 Body height 152.4 cm Maday Talbot MD Work Phone: 7(673)938-238340 [place] [address] 09-11-2022 12:03-0400 Body mass index (BMI) [Ratio] 34.43 kg/m2 Maday Talbot MD Work Phone: 7(063)075-540440 [place] [address] 09-11-2022 12:03-0400 Body temperature 97.9 [degF] Maday Talbot MD Work Phone: 3(540)131-571740 [place] [address] 09-11-2022 12:03-0400 Body weight 79.97 kg Maday Talbot MD Work Phone: [facility] 09-11-2022 12:03-0400 Diastolic blood pressure 92 mm[Hg] Maday Talbot MD Work Phone: [facility] 09-11-2022 12:03-0400 Heart rate 103 /min Maday Talbot MD Work Phone: [facility] 09-11-2022 12:03-0400 SaO2% (BldA) [Mass fraction] 95 % Maday Talbot MD Work Phone: [facility] 09-11-2022 12:03-0400 Systolic blood pressure 167 mm[Hg] Maday Talbot MD Work Phone: [facility] 08-20-2022 14:44-0400 Body height 152.4 cm Celio Stevenson MD Work Phone: [facility] 08-20-2022 14:44-0400 Body mass index (BMI) [Ratio] 34.18 kg/m2 Celio Stevenson MD Work Phone: [facility] 08-20-2022 14:44-0400 Body weight 79.38 kg Celio Stevenson MD Work Phone: [facility] 08-20-2022 14:44-0400 Heart rate 82 /min Celio Stevenson MD Work Phone: [facility] 08-20-2022 14:44-0400 SaO2% (BldA) [Mass fraction] 96 % Celio Stevenson MD Work Phone: [facility] 07-01-2022 17:49-0400 Diastolic blood pressure 79 mm[Hg] Melody Ren MD Work Phone: [facility] 07-01-2022 17:49-0400 Heart rate 97 /min Melody Ren MD Work Phone: [facility] 07-01-2022 17:49-0400 Systolic blood pressure 178 mm[Hg] Melody Ren MD Work Phone: 6(414)963-810536 [place] [address] 07-01-2022 17:47-0400 Body height 152.4 cm Melody Ren MD Work Phone: 8(463)607-450536 [place] [address] 06-05-2022 15:01-0500 Body height 152.4 cm Melody Ren MD Work Phone: 2(923)659-714236 [place] [address] 06-05-2022 15:01-0500 Diastolic blood pressure 79 mm[Hg] Melody Ren MD Work Phone: 4(587)380-255336 [place] [address] 06-05-2022 15:01-0500 Heart rate 86 /min Melody Ren MD Work Phone: 0(247)073-415836 [place] [address] 06-05-2022 15:01-0500 Systolic blood pressure 180 mm[Hg] Melody Ren MD Work Phone: 9(103)588-565936 [place] [address] 04-25-2022 13:12-0500 Body height 152.4 cm Melody Ren MD Work Phone: 3(578)654-104136 [place] [address] 04-25-2022 13:12-0500 Body mass index (BMI) [Ratio] 34.65 kg/m2 Melody Ren MD Work Phone: 2(971)295-225436 [place] [address] 04-25-2022 13:12-0500 Body weight 80.47 kg Melody Ren MD Work Phone: 0(017)717-737436 [place] [address] 04-25-2022 13:12-0500 Diastolic blood pressure 72 mm[Hg] Melody Ren MD Work Phone: 1(896)048-470736 [place] [address] 04-25-2022 13:12-0500 Heart rate 80 /min Melody Ren MD Work Phone: 2(324)471-118736 [place] [address] 04-25-2022 13:12-0500 Systolic blood pressure 138 mm[Hg] Melody Ren MD Work Phone: [facility] 09-05-2021 14:41-0400 Body height 152.4 cm Maday Talbot MD Work Phone: [facility] 09-05-2021 14:41-0400 Body mass index (BMI) [Ratio] 32.22 kg/m2 Maday Talbot MD Work Phone: [facility] 09-05-2021 14:41-0400 Body weight 74.84 kg Maday Talbot MD Work Phone: [facility] 09-05-2021 14:41-0400 Diastolic blood pressure 71 mm[Hg] Maday Talbot MD Work Phone: [facility] 09-05-2021 14:41-0400 Heart rate 79 /min Maday Talobt MD Work Phone: [facility] 09-05-2021 14:41-0400 SaO2% (BldA) [Mass fraction] 98 % Maday Talbot MD Work Phone: [facility] 09-05-2021 14:41-0400 Systolic blood pressure 126 mm[Hg] Maday Talbot MD Work Phone: [facility] Encounters Encounter Date Encounter Type Care Provider Facility Start: 05-28-2023 ambulatory CELIO STEVENSON [facility] y:[facility] Start: 04-15-2023 Evaluation and management of inpatient NAVEEN OSULLIVAN Facility:[facility] Start: 04-14-2023 ambulatory NAVEEN OSULLIVAN Facility:[facility] Start: 04-10-2023 Telephone encounter Larisa Brooks RN [facility] Procedures Date Procedure Procedure Detail Performing Clinician [...] grafting Hx of coronary artery bypass graft Charble Arteaga MD Work Phone: Start: 02-19-2023 Echo tthrc r-t 2d w/wom-mode compl spec&colr d Maday Talbot MD Work Phone: Start: 01-21-2023 End: 01-21-2023 Antibody screen Maday Talbot MD Work Phone: Plan of Treatment Date Care Activity Detail Author Start: 08-21-2031 Tetanus vaccination TETANUS [facility] Start: 10-31-2023 Potassium [Moles/volume] in Serum or Plasma POTASSIUM [facility] Start: 05-28-2023 End: 05-28-2023 Patient encounter procedure [facility] Start: 04-25-2023 Thyroid stimulating hormone measurement TSH [facility] Start: 04-14-2023 End: 04-14-2023 Patient encounter procedure 04/14/2023 1:30 PM EST Office Visit [facility] [address] [place] [address] Maday Talbot MD [address] [facility] [address] [place] [address] [facility] [place] Start: 03-24-2023 End: 03-24-2024 Basic metabolic 2000 panel - Serum or Plasma BASIC METABOLIC PANEL Lab Routine 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), bioprosthetic Permanent atrial fibrillation Essential hypertension Expected: 03/24/2023, Expires: 03/24/2024 [facility] Immunizations Immunization Date Immunization Notes Care Provider Fa cility 02-01-2022 Influenza Vaccine, Quadrivalent, Adjuvanted Meldoy Ren MD Work Phone: 4(820)724-330056 [place] [address] 02-01-2022 influenza virus vacc ine, unspecified formulation Maday Talbot MD Work Phone: [facility] 08-20-2021 COVID-19 vaccine, Michael Hodges, 50 mcg/0.25 mL booster Melody Ren MD Work Phone: [facility] 08-20-2021 tetanus toxoid, redu jens diphtheria toxoid, and acellular pertussis vaccine, adsorbed Melody Ren MD Work Phone: 7(352)158-683456 [place] [address] 03-02-2021 COVID-19 vaccine, Michael Hodges, 50 mcg/0.25 mL booster Melody Ren MD Work Phone: 1(957)851-959036 [place] [address] 02-19-2021 Influenza Vaccine, Quadrivalent, Adjuvanted Melody Ren MD Work Phone: 9(697)574-117736 [place] [address] 06-28-2020 hepatitis A vaccine, adult dosage Melody Ren MD Work Phone: 3(929)685-433036 [place] [address] 05-26-2020 COVID-19 vaccine, Michael Hodges, 100 mcg/0.5 mL Melody Ren MD Work Phone: 5(654)240-399836 [place] [address] 05-08-2020 COVID-19 vaccine, Michael Hodges, 100 mcg/0.5 mL Melody Ren MD Work Phone: 1(132)598-198636 [place] [address] 04-28-2020 COVID-19 vaccine, Michael Hodges, 100 mcg/0.5 mL Melody Ren MD Work Phone: 1(900)900-169836 [place] [address] 04-07-2020 COVID-19 vaccine, Michael Hodges, 100 mcg/0.5 mL Melody Ren MD Work Phone: 0(031)624-446636 [place] [address] 02-21-2020 zoster vaccine recombinant Melody Ren MD Work Phone: 0(631)117-314162 [address] 10-29-2019 hepatitis A vaccine, adult dosage Melody Ren MD Work Phone: [facility] 10-29-2019 zoster vaccine recombinant Melody Ren MD Work Phone: [facility] 01-07-2018 influenza, injectabl e, quadrivalent, contains preservative Melody Ren MD Work Phone: [facility] 01-06-2018 influenza, high dose seasonal, preservative-free Melody Ren MD Work Phone: [facility] 01-03-2017 influenza, injectabl e, quadrivalent, contains preservative Melody Ren MD Work Phone: [facility] 01-06-2016 influenza virus vacc ine, unspecified formulation Maday Talbot MD Work Phone: [facility] 01-04-2016 influenza, seasonal, injectable Melody Ren MD Work Phone: [facility] 02-05-2014 pneumococcal conjuga te vaccine, 13 valent Melody Ren MD Work Phone: [facility] 08-05-2005 pneumococcal polysaccharide vaccine, 23 valent Melody Ren MD Work Phone: [facility] Payers Date Payer Category Payer Medicare MEDICARE [employer] HMO PPO MEDICARE [employer] O PPO [id number] 2017-Present [address] [address] [place] [address] [id number] 2017 Medicare [id number] 1940 Unknown [id number] 1939 Unknown [id number] 2..[id number] 1939 Unknown [id number] 2..[id number] 1939 Unknown [id number] [id number] 1939 Unknown [id number] [id number] 1939 Unknown [id number] [id number] 1939 Unknown [id number] [id number] 1939 Unknown [id number] [id number] 1939 Unknown [id number] [id number] 1939 Unknown [id number] [id number] 1939 Unknown [id number] [id number] 1939 Unknown [id number] [id number] 1939 Unknown [id number] [id number] 1939 Unknown [id number] [id number] 1939 Unknown [id number] 2.16840.1.314635.3.579.2.594 1939 Unknown [id number] [id number] 1939 Unknown [id number] [id number] 1939 Unknown [id number] [id number] 1939 Unknown [id number] [id number] 1939 Unknown [id number] [id number] 1939 Unknown [id number] [id number] Social History Date Type Detail Facility Start: 01-15-2016 End: 02-19-2023 Tobacco smoking status NHIS Ex-smoker [facility] Start: 1956 End: 04-07-2003 History of tobacco use Current smoker [facility] Start: 1956 End: 04-07-2003 History of tobacco use Cigarette Smoker [facility] Start: 01-15-2016 End: 04-14-2023 Cigarettes smoked current (pack per day) - Reported 1 [facility] Start: 01-15-2016 End: 02-19-2023 Tobacco use and exposure Smokeless tobacco non-user [facility] Start: 09-05-2021 End: 03-19-2023 Alcohol intake Current drinker of alcohol (finding) [facility] Start: 12-09-2008 History SDOH Alcohol Comment occasionally [facility] Start: 02-09-2015 End: 04-25-2022 Tobacco Comment quit 11 years ago [facility] Start: 1940 Sex Assigned At Not on file [facility] Start: 03-03-2022 End: 04-25-2022 Exposure to SARS-CoV-2 (event) Unable to assess [facility] Start: 04-25-2022 Alcohol Comment Wine with dinn er once in awhile [facility] Start: 05-26-2022 End: 06-05-2022 Exposure to SARS-CoV-2 (event) Not sure [facility] Start: 09-11-2022 End: 04-14-2023 Tobacco use panel [facility] Gender identity Identifies as fe male gender (finding) [facility] Medical Equipment Procedure Code Equipment Code Equipment Origin al Text Equipment Identifier Dates Nichole Starr 58cm - [id number] Start: 02-01-2016 Valve Tavr Evolu t 26 - [id number] Start: 01-31-2016 Clinical Notes 09-05-2021 to 04-15-2023 Telephone Encounter - Vanessa Ruggiero RN - 04/15/2023 3:02 PM ESTTelephone Encounter - Vanessa Ruggiero RN - 04/15/2023 3:02 PM ESTTelephone Encounter - Vanessa Ruggiero RN - 04/15/2023 2:27 PM EST Note Date & Type Note Facility 04-15-2023 Telephone encounter Note Faxed lab order [facility] 04-15-2023 Miscellaneous Notes Faxed lab order MALINA patent's daughter, Silvestre. Will fax lab orders to [facility]. Silvestre wants to know if patient can start cardiac rehab in [place]. After labs ordered will need faxed to [phone], [facility] outpatient lab. Images from the original note [...] Outside Labs: Received: Yesterday Charbel Arteaga MD [facility] Triage Pool Outside labs noted: K of 3.5 and BUN/Cr of 28/0.95. Please check on the patient with respect to any ongoing symptoms / concerns - especially volume related - which will help guide further care. Spoke with pt's daughter Silvestre. Reports Dot is currently not feeling well - being treated by [facility] for an URI with prednisone and antibiotic. [...] She will follow up with a [employer] message when she gets home. Pt is interested in cardiac rehab. [facility]23 Telephone encounter Note SW cherie's daughter, Silvestre. Will fax lab orders to [facility]. Silvestre wants to know if patient can start cardiac rehab in [place]. After labs ordered will need faxed to [phone], [facility] outpatient lab. [facility] 04-15-2023 Telephone encounter Note Images from the original note were not included. Charbel Arteaga MD You21 hours ago (4:23 PM) Plan: continue the furosemide / lasix at 20 mg po bid and the K supplement at 10 mEq po BID; monitor symptoms / findings; obtain a chem 6 on with results to this office. Thank you. [facility] 04-11-2023 Telephone encounter Note SW patient's daughter Silvestre, gave Dr Arteaga's recommendations. [facility] 04-11-2023 Miscellaneous Notes SW patient's daughter Silvestre, [...] Labs: Received: Yesterday Charbel Arteaga MD [facility] Outside labs noted: K of 3.5 and BUN/Cr of 28/0.95. Please check on the patient with respect to any ongoing symptoms / concerns - especially volume related - which will help guide further care. Spoke with pt's daughter Silvestre. Reports Dot is currently not feeling well - being treated by [facility] for an URI with prednisone and antibiotic. [...] She will follow up with a [employer] message when she gets home. Pt is interested in cardiac rehab. documented in this encounter [facility] 04-11-2023 Telephone encounter Note Images from the original note were not included. Cahrbel Arteaga MD You14 minutes ago (1:10 PM) Patient update noted. Plan: ask the patient to take her furosemide / lasix at 20 mg po BID and her potassium supplement 10 mEq po BID today through Friday of 04/14/23 and provide an update on her symptoms with respect to her breathing and volume status with respect to her lower extremity edema. Thank you. [facility] 04-10-2023 Telephone encounter Note Images from the original note were not included. Outside Labs: Received: Yesterday MD [facility] Triage Pool Outside labs noted: K of 3.5 and BUN/Cr of 28/0.95. Please check on the patient with respect to any ongoing symptoms / concerns - especially volume related - which will help guide further care. Spoke with pt's daughter Silvestre. Reports Dot is currently not feeling well - being treated by [facility] for an URI with prednisone and antibiotic. [...] She will follow up with a [employer] message when she gets home. Pt is interested in cardiac rehab. [facility] 04-09-2023 Telephone encounter Note Received lab results from [facility]. Sent to scanning for upload into chart. Copy given to Dr. Arteaga. [facility] 04-09-2023 Miscellaneous Notes Received lab results from [facility]. Sent to scanning for upload into chart. Copy given to Dr. Arteaga. Faxed to [phone] The LVEDP is a blood pressure recording [...] labs are signed, they need faxed to [facility]. Spoke with patient's daughter regarding the above [...] Cardiac cath: Received: Today Charbel Arteaga MD [facility] Please update the patient that her cardiac cath procedure was received / reviewed. 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 She did not require additional PTCA. The recommendation is for her to continue medical therapy and follow up. Thank you. Sending mychart. documented in this encounter [facility] 03-24-2023 Telephone encounter Note Faxed to [phone] [facility] 03-24-2023 Telephone encounter Note The LVEDP is [...] labs are signed, they need faxed to [facility]. [facility] 03-21-2023 Telephone encounter Note Spoke with patient's daughter regarding the above results and recommendations. Patient's daughter verbalized understanding. She said there was concerns of the LVEDP. Is this something that needs addressed? She noted that the patient has been more short of breath than normal. She is currently on 20 mg lasix daily. [facility] 03-20-2023 Telephone encounter Note Images from the original note were not included. Cardiac cath: Received: Today Charbel Arteaga MD [facility] Pool Please update the patient that her cardiac cath procedure was received / reviewed. 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 She did not require additional PTCA. The recommendation is for her to continue medical therapy and follow up. Thank you. Sending mychart. [facility] 03-19-2023 Nurse Note After Visit Summary reviewed with patient by Hyaley DE LUNA, and all questions answered. RN reviewed what medications patient still needs for the day, patient verbalized understanding. IV dc'd with no difficulty and tip intact. Telemetry dc'd. VS stable at time of discharge. Patient being discharged to home with daughter. No patient belongings left at bedside. No further issues at time of discharge. Hayley Melendez RN [facility] 03-19-2023 Miscellaneous Notes After Visit Summary reviewed [...] Brief Cardiac Catheterization Procedure Note Kiara Martinez ([id number]) Pre Procedural Diagnosis Abnormal stress test [R94.39] [...] Swapnil Gilmore MD - Fellow Procedural Staff Way Inspector: Vandana Knox RN; Patty Gallegos RN Documenter: [...] fib. Hayley Melendez RN PREPARING FOR YOUR COOK JELLY PROCEDURE Your catheterization is scheduled on 03/19/23 at: [facility] located at [address], [place] [address]. You are to arrive at [facility] on the 1st floor at 6:00 AM You may use sort operations supervisor parking ($10) or park in the [facility] just past the [place] ($3). There is a walkway from the 2nd floor of the garage into the [facility]. You are to have nothing to eat [...] please call NOW to notify the lab ([phone]). You may receive sedation during your procedure [...] REGARDING THE PROCEDURE CALL US AT : [phone] THANK YOU, JEYSON DE LUNA Transmission Engineer Scheduling The above instructions were given to [...] an hour. documented in this encounter [facility] 03-19-2023 Surgery Postoperative evaluation and management note Preliminary Report - Brief Cardiac Catheterization Procedure Note Kiara Hilaria Martinez ([id number]) Pre Procedural Diagnosis Abnormal stress test [R94.39] [...] Swapnil Gilmore MD - Fellow Procedural Staff Way Inspector: Vandana Knox RN; Ptaty Gallegos RN Documenter: Toshia Hernandez RN Full report to follow Swapnil Gilmore MD March 19, 2023 9:26 AM [facility] 03-19-2023 History and physical note PRE-CATH H&P [...] coronary angiography. Tigre Mortensen, Fellow, Cardiovascular Medicine [facility] Work Phone: 03-19-2023 History and physical note [...] left heart catheterization with coronary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 Diagnosis Bilateral carotid artery stenosis Occlusion 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 without mention of cerebral infarction [facility] Asymptomatic bilateral carotid artery stenosis Occlusion 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 without mention of cerebral infarction documented [facility] Diagnosis Asymptomatic carotid artery stenosis Occlusion and stenosis of carotid artery without mention of cerebral infarction [facility] Bilateral carotid artery stenosis- Primary Occlusion 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 without mention of cerebral infarction [facility] Diagnosis 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), bioprosthetic Permanent atrial fibrillation Atrial fibrillation Essential hypertension Unspecified essential hypertension Hyperlipidemia, unspecified hyperlipidemia type Asymptomatic bilateral carotid artery stenosis Occlusion 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 without mention of cerebral infarction Pre-operative cardiovascular examination [facility] Diagnosis Obesity: body mass index [...] Unspecified essential hypertension Coronary artery disease involving [place] coronary artery of [place] heart without angina pectoris Nonrheumatic aortic valve stenosis Aortic valve disorders [facility] Diagnosis 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 [facility] Diagnosis 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), bioprosthetic Permanent atrial fibrillation Atrial fibrillation Essential hypertension Unspecified essential hypertension Hyperlipidemia, unspecified hyperlipidemia type Asymptomatic bilateral carotid artery stenosis Occlusion 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 without mention of cerebral infarction Pre-operative cardiovascular examination [facility] Diagnosis 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 [facility] Diagnosis Abnormal stress test Other nonspecific abnormal cardiovascular system function study Abnormal stress test Other nonspecific abnormal cardiovascular system function study [facility] Diagnosis 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), bioprosthetic Permanent atrial fibrillation Atrial fibrillation Essential hypertension Unspecified essential hypertension [facility] Attachments The following attachments cannot be sent through Care Everywhere. * Cardiac Cath [facility] After - Wrist Site ([facility]) (Portuguese) [facility] Summary Purpose Family History No Family [...] DUPLEX CAROTID BILATERAL Maday Talbot MD [address] [facility] 5th [address] [address] Referral ID Status Reason Start Date Expiration Date V isits Requested Visits Authorized [id number] New Request 09/05/2021 09/30/2022 1 1 Specialty Diagnoses / Procedures Referred By Contac t Referred To Contact Neurology Diagnoses Bilateral carotid artery stenosis Dizziness Maday Talbot MD [address] [facility] 5th [address] [address] Referral ID Status Reason Start Date Expiration Date V isits Requested Visits Authorized [id number] New Request 09/05/2021 09/30/2022 1 1 Specialty Diagnoses / Procedures Referred By Contac t Referred To Contact Diagnoses Loss of memory Procedures MRI BRAIN WITHOUT CONTRAST DE MRI BRAIN Melody Ren MD [address] [place] [phone] Referral ID Status Reason Start Date Expiration Date V isits Requested Visits Authorized [id number] New Request 04/25/2022 05/20/2023 1 1 Referral ID Status Reason Start Date Expiration Date Visits Re quested Visits Authorized [id number] Closed 04/25/2022 05/20/2023 1 1 Specialty Diagnoses / Procedures Referred By Contac t Referred To Contact Diagnoses Peripheral vertigo involving left ear Procedures MRI INTERNAL AUDITORY CANAL WITH AND WITHOUT CONTRAST DE MRI BRAIN COMBO Melody Ren MD [address] [place] [phone] Referral ID Status Reason Start Date Expiration Date Visits Re quested Visits Authorized [id number] Closed 06/07/2022 07/02/2023 1 1 Specialty Diagnoses / Procedures Referred By Contac t Referred To Contact Diagnoses Vestibular schwannoma Procedures MRI INTERNAL AUDITORY CANAL WITH AND WITHOUT CONTRAST DE MRI BRAIN COMBO Celio Stevenson MD [address] [facility] [address] [place] [phone] Referral ID Status Reason Start Date Expiration Date V isits Requested Visits Authorized [id number] New Request 08/20/2022 09/14/2023 1 1 Specialty Diagnoses / Procedures Referred By Contac t Referred To Contact Diagnoses Bilateral carotid artery stenosis Procedures VASC DUPLEX CAROTID BILATERAL Tayla Carter, PAC [address] [place] [address] Referral ID Status Reason Start Date Expiration Date V isits Requested Visits Authorized [id number] New Request 03/13/2022 04/07/2023 1 1 Specialty Diagnoses / Procedures Referred By Contac t Referred To Contact Diagnoses Bilateral carotid artery stenosis Procedures CT ANGIO BRAIN/NECK DE CT ANGIO,HEAD COMBO,INCL IMAGE PROCESS DE CT ANGIO,NECK COMBO,INCL IMAGE PROCESS Tayla Carter, PAC [address] [place] [address] Referral ID Status Reason Start Date Expiration Date V isits Requested Visits Authorized [id number] New Request 09/11/2022 10/06/2023 1 1 Specialty Diagnoses / Procedures Referred By Contac t Referred To Contact Diagnoses Asymptomatic bilateral carotid artery stenosis Procedures ECG Tayla Carter R, PAC [address] [place] [address] Referral ID Status Reason Start Date Expiration Date V isits Requested Visits Authorized [id number] New Request 10/30/2022 11/24/2023 1 1 Referral ID Status Reason Start Date Expiration Date Visits Re quested Visits Authorized [id number] Closed 09/11/2022 10/06/2023 1 1 Specialty Diagnoses / Procedures Referred By Contac t Referred To Contact Echocardiography Diagnoses 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 Procedures ECHOCARDIOGRAM DE ECHO HEART XTHORACIC,COMPLETE W DOPPLER Maday Talbot MD [address] [facility] [address] 5[address] [address] [address] [place] [address] Referral ID Status Reason Start Date Expiration Date Visits Re quested Visits Authorized [id number] Closed 01/31/2023 02/25/2024 1 1 Specialty Diagnoses / Procedures Referred By Sammyac t Referred To Contact Diagnoses 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 Procedures NUC MYOCARD PERF STRESS MIBI PHARM DE CHG MYOCARDIAL SPECT MULTIPLE STUDIES CHG MYOCARDIAL SPECT MULTIPLE STUDIES-T DE CARDIAC STRESS TST,INTERP/REPT ONLY DE CV STRS TST XERS&/OR RX CONT ECG W/O I&R Maday Talbot MD [address] [facility] 5th [address] [address] Referral ID Status Reason Start Date Expiration Date Visits Re quested Visits Authorized [id number] Closed 01/31/2023 02/25/2024 1 1 Specialty Diagnoses / Procedures Referred By Courtney t Referred To Contact Procedures ECG Escobar Reaves MD [address] [place] [address] Referral ID Status Reason Start Date Expiration Date V isits Requested Visits Authorized [id number] New Request 03/19/2023 04/12/2024 1 1 Additional Source Comments INFORMATION SOURCE (unrecogn ized section and content) DATE CREATED AUTHOR AUTHOR'S ORGANIZ ATION 05/23/2023 [facility] Reason for Visit (unrecogniz ed section and content) Specialty Diagnoses / Procedures Referred By Courtney t Referred To Contact Diagnoses Bilateral carotid artery stenosis Procedures VASC DUPLEX CAROTID BILATERAL VASC DUPLEX CAROTID BILATERAL Maday Talbot MD [address] [facility] 5th [address] [address] Referral ID Status Reason Start Date Expiration Date V isits Requested Visits Authorized [id number] New Request 09/05/2021 09/30/2022 1 1 Reason Comments New Patient Specialty Diagnoses / Procedures Referred By Courtney t Referred To Contact Neurology Diagnoses Bilateral carotid artery stenosis Dizziness Maday Talbot MD [address] [facility] 5th Floor [address] [address] Referral ID Status Reason Start Date Expiration Date V isits Requested Visits Authorized [id number] New Request 09/05/2021 09/30/2022 1 1 Specialty Diagnoses / Procedures Referred By Contac t Referred To Contact Diagnoses Loss of memory Procedures MRI BRAIN WITHOUT CONTRAST DE MRI BRAIN Melody Ren MD [address] [phone] Referral ID Status Reason Start Date Expiration Date Visits Re quested Visits Authorized [id number] Closed 04/25/2022 05/20/2023 1 1 Specialty Diagnoses / Procedures Referred By Sammyac t Referred To Contact Diagnoses Peripheral vertigo involving left ear Procedures MRI INTERNAL AUDITORY CANAL WITH AND WITHOUT CONTRAST DE MRI BRAIN COMBO Melody Ren MD [address] [phone] Referral ID Status Reason Start Date Expiration Date Visits Re quested Visits Authorized [id number] Closed 06/07/2022 07/02/2023 1 1 Reason Comments Vestibular Schwanoma vestibular schwanno ma pt stated that she is a nodule behind her left ear and she gets dizzy some times Specialty Diagnoses / Procedures Referred By Sammyac t Referred To Contact Diagnoses Bilateral carotid artery stenosis Procedures VASC DUPLEX CAROTID BILATERAL Tayla Carter R, PAC [address] [place] [address] Referral ID Status Reason Start Date Expiration Date V isits Requested Visits Authorized [id number] New Request 03/13/2022 04/07/2023 1 1 Reason Comments Follow-up Reason Comments Follow-up Follow up after CTA Specialty Diagnoses / Procedures Referred By Contac t Referred To Contact Diagnoses Bilateral carotid artery stenosis Procedures CT ANGIO BRAIN/NECK DE CT ANGIO,HEAD COMBO,INCL IMAGE PROCESS DE CT ANGIO,NECK COMBO,INCL IMAGE PROCESS Tayla Carter, PAC [address] [place] [address] Referral ID Status Reason Start Date Expiration Date Visits Re quested Visits Authorized [id number] Closed 09/11/2022 10/06/2023 1 1 Specialty Diagnoses / Procedures Referred By Courtney t Referred To Contact Diagnoses Bilateral carotid artery stenosis Bilateral carotid artery stenosis [I65.23] Procedures DE PLACE CATH SUBSELECT ART,NECK PLACEMENT CATHETER SELECTIVE ARTERY INITIAL 2ND ORDER THORACIC/BRACHIOCEPHALIC Maday Talbot MD [facility] 5th Floor [address] [address] [facility] [address] [place] [address] Referral ID Status Reason Start Date Expiration Date Visits Re quested Visits Authorized [id number] 1 1 Reason Comments [facility] Reason Comments Heart Problem Needs [...] XTHORACIC,COMPLETE W DOPPLER Maday Talbot MD [address] [facility] 5th Floor [address] [address] [place] [address] Referral ID Status Reason Start Date Expiration Date Visits Re quested Visits Authorized [id number] Closed 01/31/2023 02/25/2024 1 1 Reason Comments [...] ECG W/O I&R Maday Talbot MD [address] [facility] 5th [address] [place] [address] Referral ID Status Reason Start Date Expiration Date Visits Re quested Visits Authorized [id number] Closed 01/31/2023 02/25/2024 1 1 Specialty Diagnoses / Procedures Referred By Contac t Referred To Contact Diagnoses Abnormal stress test Abnormal stress test [R94.39] Procedures DE CATH PLMT L HRT & ARTS W/NJX & ANGIO IMG S&I CORONARY ANGIOGRAM CORONARY BYPASS GRAFT ANGIOGRAM LEFT HEART CATHETERIZATION [facility] [address] [place] [address] [facility] [address] [place] [address] Referral ID Status Reason Start Date Expiration Date Visits Re quested Visits Authorized [id number] 1 1 Reason Onset Date Comments Results 03/20/2023 Reason Onset Date Comments Results 04/10/2023 Care Teams (unrecognized sec tion and content) Automatic Pilot Mechanic 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 Specialty Start Date End Date Noe Rodriguez MD [address] [phone] PCP - Referring 1 Cardiovascular Disease 02/07/16 Naveen Osullivan MD [address] [place], [place] [address] PCP - General Family Medicine 03/22/16 Noe Rodriguez MD 1760 [facility] Phys[facility] [address] [place] [address] Referring Provider Cardiovascular Disease 12/18/15 Larisa Jean, ANNAMARIE Registered Nurse 03/05/16 Automatic Pilot Mechanic 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 Specialty Start Date End Date Noe Rodriguez MD [address] [address] PCP - Referring 1 Cardiovascular Disease 02/07/16 Naveen Osullivan MD [address] [place] [address] PCP - General Family Medicine 03/22/16 Noe Rodriguez MD [address] Phys[facility] [address] [place] [address] Referring Provider Cardiovascular Disease 12/18/15 Larisa Jean, RN Registered Nurse 03/05/16 Automatic Pilot Mechanic 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 Specialty Start Date End Date Noe Rodriguez MD [address] [place] [address] PCP - Referring 1 Cardiovascular Disease 02/07/16 Naveen Osullivan MD [address] [place] [address] PCP - General Family Medicine 03/22/16 Noe Rodriguez MD [address] [facility] [address] [place] [address] Referring Provider Cardiovascular Disease 12/18/15 Larisa Jean RN Registered Nurse 03/05/16 Automatic Pilot Mechanic 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 Specialty Start Date End Date Noe Rodriguez MD [address] [place] [address] PCP - Referring 1 Cardiovascular Disease 02/07/16 Naveen Osullivan MD [address] [place] [address] PCP - General Family Medicine 03/22/16 Noe Rodriguez MD [address] [facility] [address] [place] [address] Referring Provider Cardiovascular Disease 12/18/15 Larisa Jean, RN Registered Nurse 03/05/16 Automatic Pilot Mechanic 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 Specialty Start Date End Date Noe Rodriguez MD [address] [place] [address] PCP - Referring 1 Cardiovascular Disease 02/07/16 Naveen Osullivan MD [address] [facility] [address] PCP - General Family Medicine 03/22/16 Noe Rodriguez MD [address] [facility] [address] [place] [address] Referring Provider Cardiovascular Disease 12/18/15 Larisa Jean, RN Registered Nurse 03/05/16 Automatic Pilot Mechanic 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 Specialty Start Date End Date Noe Rodriguez MD [address] [place] [address] PCP - Referring 1 Cardiovascular Disease 02/07/16 Naveen Osullivan MD [address] [place] [address] PCP - General Family Medicine 03/22/16 Noe Rodriguez MD [address] [facility] [place] [address] Referring Provider Cardiovascular Disease 12/18/15 Larisa Jean, RN Registered Nurse 03/05/16 Automatic Pilot Mechanic 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 Specialty Start Date End Date Noe Rodriguez MD [address] [place] [address] PCP - Referring 1 Cardiovascular Disease 02/07/16 Naveen Osullivan MD [address] [facility] [place] [address] PCP - General Family Medicine 03/22/16 Noe Rodriguez MD [address] [facility] [address] [place] [address] Referring Provider Cardiovascular Disease 12/18/15 Larisa Jean, RN Registered Nurse 03/05/16 Automatic Pilot Mechanic 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 Specialty Start Date End Date Noe Rodriguez MD [address] [place] [address] PCP - Referring 1 Cardiovascular Disease 02/07/16 Naveen Osullivan MD [address] [place] [address] PCP - General Family Medicine 03/22/16 Noe Rodriguez MD [address] [facility] [place] [address] Referring Provider Cardiovascular Disease 12/18/15 Larisa Jean RN Registered Nurse 03/05/16 Automatic Pilot Mechanic 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 Specialty Start Date End Date Noe Rodriguez MD [address] [place] [address] PCP - Referring 1 Cardiovascular Disease 02/07/16 Naveen Osullivan MD [address] [facility] [place] [address] PCP - General Family Medicine 03/22/16 Noe Rodriguez MD [address] [facility] [place] [address] Referring Provider Cardiovascular Disease 12/18/15 Larisa Jean, RN Registered Nurse 03/05/16 Automatic Pilot Mechanic 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 Specialty Start Date End Date Noe Rodriguez MD [address] [place] [address] PCP - Referring 1 Cardiovascular Disease 02/07/16 Naveen Osullivan MD [address] [place] [address] PCP - General Family Medicine 03/22/16 Noe Rodriguez MD [address] [facility] [place] [address] Referring Provider Cardiovascular Disease 12/18/15 Larisa Jean, RN Registered Nurse 03/05/16 Automatic Pilot Mechanic 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 Specialty Start Date End Date Noe Rodriguez MD [address] [place] [address] PCP - Referring 1 Cardiovascular Disease 02/07/16 Naveen Osullivan MD [address] [place] [address] PCP - General Family Medicine 03/22/16 Noe Rodriguez MD [address] [facility] [place] [address] Referring Provider Cardiovascular Disease 12/18/15 Larisa Jean, RN Registered Nurse 03/05/16 Automatic Pilot Mechanic 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 Specialty Start Date End Date Noe Rodriguez MD [address] [place], [place] [address] PCP - Referring 1 Cardiovascular Disease 02/07/16 Naveen Osullivan MD [address] [place] [address] PCP - General Family Medicine 03/22/16 Noe Rodriguez MD [address] [place] [address] Referring Provider Cardiovascular Disease 12/18/15 Larisa Jean, RN Registered Nurse 03/05/16 Automatic Pilot Mechanic 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 Specialty Start Date End Date Noe Rodriguez MD [address] [place] [address] PCP - Referring 1 Cardiovascular Disease 02/07/16 Naveen Osullivan MD [address] [place] [address] PCP - General Family Medicine 03/22/16 Noe Rodriguez MD [address] [place] [address] Referring Provider Cardiovascular Disease 12/18/15 Larisa Jean RN Registered Nurse 03/05/16 Automatic Pilot Mechanic 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 Specialty Start Date End Date Noe Rodriguez MD [address] [place] [address] PCP - Referring 1 Cardiovascular Disease 02/07/16 Naveen Osullivan MD [address] [place] [address] PCP - General Family Medicine 03/22/16 Noe Rodriguez MD [address] [place] [address] Referring Provider Cardiovascular Disease 12/18/15 Larisa Jean, RN Registered Nurse 03/05/16 Automatic Pilot Mechanic 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 Specialty Start Date End Date Noe Rodriguez MD [address] [place] [address] PCP - Referring 1 Cardiovascular Disease 02/07/16 Naveen Osullivan MD [address] [place] [address] PCP - General Family Medicine 03/22/16 Noe Rodriguez MD [address] [place] [address] Referring Provider Cardiovascular Disease 12/18/15 Larisa Jean, RN Registered Nurse 03/05/16 Automatic Pilot Mechanic 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 Specialty Start Date End Date Noe Rodriguez MD [address] [place] [address] PCP - Referring 1 Cardiovascular Disease 02/07/16 Naveen Osullivan MD [address] [place] [address] PCP - General Family Medicine 03/22/16 Noe Rodriguez MD [address] [place] [address] Referring Provider Cardiovascular Disease 12/18/15 Larisa Jean, RN Registered Nurse 03/05/16 03/05/23 Automatic Pilot Mechanic 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 Specialty Start Date End Date Noe Rodriguez MD [address] [place] [address] PCP - Referring 1 Cardiovascular Disease 02/07/16 Naveen Osullivan MD [address] [place] [address] PCP - General Family Medicine 03/22/16 Noe Rodriguez MD [address] [place] [address] Referring Provider Cardiovascular Disease 12/18/15 Automatic Pilot Mechanic 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 Specialty Start Date End Date Noe Rodriguez MD [address] [place] [address] PCP - Referring 1 Cardiovascular Disease 02/07/16 Naveen Osullivan MD [address] [place] [address] PCP - General Family Medicine 03/22/16 Noe Rodriguez MD [address] [place] [address] Referring Provider Cardiovascular Disease 12/18/15 Automatic Pilot Mechanic 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 Specialty Start Date End Date Noe Rodriguez MD [address] [place] [address] PCP - Referring 1 Cardiovascular Disease 02/07/16 Naveen Osullivan MD [address] [place] [address] PCP - General Family Medicine 03/22/16 Noe Rodriguez MD [address] [place] [address] Referring Provider Cardiovascular Disease 12/18/15 Automatic Pilot Mechanic 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 Specialty Start Date End Date Noe Rodriguez MD [address] [place] [address] PCP - Referring 1 Cardiovascular Disease 02/07/16 Naveen Osullivan MD [address] [place] [address] PCP - General Family Medicine 03/22/16 Noe Rodriguez MD [address] [facility] [place] [address] Referring Provider Cardiovascular Disease 12/18/15 Scheduled Active [...] BE BASED ON THE PRIMARY CLINICAL RECORDS. [facility]. provides no warranty or guarantee of the accuracy or completeness of information in this document.
[2023-05-24 05:28] LABS: Mucous, Urine 0 SEEN /hpf (<or=2+)
[2023-05-24 05:29] LABS: Color, Urine Amber (Yellow); Glucose, Dipstick Normal (Normal); Ketone-Dipstick 5 mg/dl (Negative); Leukocyte Esterase-Dipstick 500 /ul (Negative); Nitrite-Dipstick Positive (Negative); Occult Blood-Urine 25 /ul (Negative); Protein-Dipstick 30 mg/dl (Negative); Specific Gravity, Urine 1.025 (1.002-1.030); Urine Clarity Cloudy (Clear); Urine Urobilinogen 8 mg/dl (Normal)
--- NOTE | 2023-05-24 05:35 | PCM.HP.STD ---
[facility] - General General Date of Admission: 05/24/23 Date of Service: 05/24/23 Chief Complaint: Shortness of breath with the back pain, nausea and vomiting. HPI Narrative LOUIS BOWERS, is a 82 F with a past medical history of essential hypertension; on Losartan and Lasix, hyperlipidemia, hypothyroidism; with history of partial thyroidectomy (~2008), obesity; with BMI of 33.6 this admission, obstructive sleep apnea, chronic atrial fibrillation; on Eliquis, chronic left bundle branch block, history of tobacco abuse; with subsequent COPD, coronary artery disease; status post [place] with CABG x 3 (~1986) with redo x 2 (2005) plus coronary artery stent (2005), history of severe nonrheumatic aortic stenosis; s/p bioprosthetic aortic valve replacement (2015), history of carotid artery stenosis, history of GI bleed (2015) , history of cholecystectomy (1988), history of lumpectomy of the left breast, history of squamous cell carcinoma; status post excision, history of Mohs surgery for basal cell carcinoma (~2007), chronic anemia, depression, GERD who presents to [facility] ER complaining of shortness of breath and back pain with nausea and vomiting. Ms. Bowers reports her symptoms began approximately 6 weeks prior to admission with a gradual onset of progressively worsening shortness of breath and back pain. She states she was seen by her PCP multiple times in addition to pulmonology since that time and has been diagnosed with a UTI treated with antibiotics (Keflex plus Pyridium) that did not improve her symptoms. She states that earlier tonight she developed worsening nausea and vomiting after taking her antibiotics and she is not sure if she was able to keep down long enough for it to absorb. She does admit to some mild dysuria and mid back pain that is mostly in the midline. She admits to abdominal pain with nausea and bilious emesis plus dysuria and shortness of breath and persistent expiratory wheezing but denies diarrhea, fever, chills, chest pain or palpitations. In the ER she was noted to have hyperbilirubinemia with a total bilirubin of 2.3 mg/dL present on admission (direct bilirubin 1.58 mg/dL) with an elevated AST of 137, elevated ALT of 163 and alkaline phosphatase elevated at 215 (with previous LFTs done a year ago that were normal) complicated by a elevated serum creatinine of 1.48 mg/dL with a BUN of 28 mg/dL present on admission (up from her baseline serum creatinine of 0.9 mg/dL 3 weeks ago) consistent with acute dehydration along with moderate thrombocytopenia of 69 present on admission suspicious for slowly evolving ITP with a chest x-ray that showed small left pleural effusion with associated atelectasis and her CT scan of the abdomen and pelvis showing evidence of diverticulosis without diverticulitis and a UA that was grossly positive for acute cystitis; with microscopic hematuria complicated by clinical evidence of mild to moderate acute exacerbation of COPD. The ER physician then contacted to franchise business consultant on-call and he recommended admission to the hospitalist service with MRCP to be done in the AM along with a pending hepatitis panel. She was then admitted to the general medical floor for ongoing care for a stay that is expected to be greater than 48 hours. [facility] Medical History (Updated 05/24/23 @ 07:[address] Tacho Baez, ) Afib Atherosclerosis of coronary artery bypass graft without angina pectoris Atherosclerosis of coronary artery of [place] heart without angina pectoris Carotid artery stenosis CHF (congestive heart failure) Chronic anemia COPD with acute exacerbation Degeneration of intervertebral disc of lumbosacral region Depression Dyspnea Essential hypertension GERD (gastroesophageal reflux disease) GI bleed (~02/16/16) History of GI bleed (02/2016) History of non-ST elevation myocardial infarction (NSTEMI) (06/24/05) HLD (hyperlipidemia) Hypothyroidism Left bundle branch block Lumbar facet arthropathy Lumbosacral spondylosis Non-rheumatic aortic stenosis Obesity Old myocardial infarction ALMA (obstructive sleep apnea) Persistent atrial fibrillation Scarlet fever Severe aortic stenosis Thrombocytopenia Thyroid nodule Home Medications levothyroxine 88 mcg tablet 88 mcg PO DAILY 11/23/13 [History Last Taken 03/19/22] multivitamin-ferrous fumarate-folic acid 18 mg-400 mcg tablet 1 ea PO DAILY 02/07/17 [History Last Taken Unknown] calcium carbonate 500 mg-vitamin D3 5 mcg (200 unit) tablet (Os-Christian 500 + D3) 1 tab PO BID 11/28/17 [History Last Taken Unknown] magnesium oxide 400 mg (241.3 mg magnesium) tablet (MagOx) 400 mg PO DAILY 12/31/18 [History Last Taken Unknown] Disability Parking Placard #1 ea 05/30/20 [Rx Last Taken Unknown] aspirin 81 mg tablet,delayed release (Adult Aspirin Regimen) 81 mg PO DAILY 05/02/22 [History Last Taken Unknown] isosorbide mononitrate 20 mg tablet See Rx Instructions .Route .COMPLEX #180 tabs 06/10/22 [Rx Last Taken Unknown] rosuvastatin 20 mg tablet See Rx Instructions .Route .COMPLEX #90 tabs 10/28/22 [Rx Last Taken Unknown] tiotropium 2.5 mcg-olodaterol 2.5 mcg/actuation mist for inhalation (Stiolto Respimat) 2 inh inhalation DAILY #4 grams 10/28/22 [Rx Last Taken Unknown] apixaban 5 mg tablet (Eliquis) 5 mg PO BID #60 tabs 12/10/22 [Rx Last Taken Unknown] nitroglycerin 0.4 mg sublingual tablet See Rx Instructions .Route .COMPLEX #25 tabs 04/02/23 [Rx Last Taken Unknown] albuterol sulfate 90 mcg/actuation aerosol inhaler (Ventolin HFA) 2 puff inhalation Q4H PRN shortness of breath or wheezing #18 grams 04/08/23 [Rx Last Taken Unknown] losartan 50 mg tablet 50 mg PO DAILY #90 tabs 04/08/23 [Rx Last Taken Unknown] pantoprazole 40 mg tablet,delayed release 40 mg PO DAILY #90 tabs 04/08/23 [Rx Last Taken Unknown] albuterol sulfate 2.5 mg/3 mL (0.083 %) solution for nebulization 2.5 mg (3 mL) inhalation Q4H PRN Sob &/Or Wheezing #180 mL 05/08/23 [Rx Last Taken Unknown] furosemide 20 mg tablet 20 mg PO BID Swelling 05/08/23 [History Last Taken Unknown] potassium chloride 10 mEq tablet,extended release 10 meq PO BID When you take Lasix for swelling 05/08/23 [History Last Taken Unknown] fluticasone furoate 200 mcg/actuation blister powder for inhalation (Arnuity Ellipta) 1 inh inhalation QDAY #30 ea 05/12/23 [Rx Last Taken Unknown] Allergy/AdvReac Type Severity Reaction Status Date / Time adhesive AdvReac Rash Verified 05/20/23 12:46 nickel AdvReac Rash Verified 05/20/23 12:46 wool AdvReac Rash Verified 05/20/23 12:46 Family History Mother CAD (coronary artery disease) Hypertension Alzheimer disease Daughter CAD (coronary artery disease) Myocardial infarction Sister Breast cancer Myocardial infarction Brother Myocardial infarction Father CVA (cerebral vascular accident) Heart disease Hypertension Aneurysm and dissection of heart Surgical History H/O aortic valve replacement (01/31/16) History of aortic valve replacement with bioprosthetic valve (~01/31/16) History of cardiac catheterization (~2015) History of cataract extraction (~2008) History of colonoscopy (~2007) History of colonoscopy (~2015) History of electrophysiologic study (02/02/16) History of hysterectomy History of inguinal herniorrhaphy History of lumpectomy of left breast History of partial thyroidectomy (~2008) History of squamous cell carcinoma excision Hx of cholecystectomy Previous back surgery S/P CABG x 2 (10/22/05) S/P CABG x 3 (~1986) Status post Mohs surgery for basal cell carcinoma (~2007) Stented coronary artery (~06/24/05) Social History Smoking Status: Former smoker quit date: 04/07/02 pack-years: 35 second hand exposure: No alcohol intake: never substance use type: does not use caffeine: Yes Type: coffee Number of servings: 2 ROS ROS Narrative Review of systems: General: Patient denies fever or chills HENT: Denies headache, denies stuffy nose, denies sore throat EYES: Denies changes in vision or discharge from eyes Resp: Patient admits to shortness of breath made worse with exertion and nonproductive cough Cardiac: Denies chest pain or palpitations GI: Patient admits to generalized abdominal pain, nausea and bilious emesis. She denies diarrhea : Patient admits to dysuria Extremity: Denies swelling Musculoskeletal: Patient admits to back pain but denies pain in her extremities. Neuro: Denies any numbness/tingling, headache or focal neurologic weakness Heme: Denies any bleeding or bruising Skin: Denies rashes Psychiatric: No complaints voiced related to uncontrolled depression or anxiety Endocrine: No polyuria, polydipsia or polyphagia Allergic: Patient denies lip swelling, tongue swelling or urticaria. The rest of the 14 point ROS was negative except for positives in HPI. Vital Signs Vital Signs Vital Signs: 05/24/23 01:11 05/24/23 01:15 05/24/23 01:15 Temperature 97.1 F L 97.1 F L 97.1 F L Temperature Source Temporal Temporal Temporal Pulse Rate 124 H 120 H 124 H Respiratory Rate 18 18 19 H Respiratory Effort Respiratory Depth Respiratory Pattern Blood Pressure 125/58 H 125/58 H 125/58 H Blood Pressure Mean 80 80 80 Pulse Ox 95 95 95 Oxygen Delivery Method Room Air Room Air Room Air 05/24/23 01:19 05/24/23 02:15 05/24/23 03:15 Temperature 97.4 F L 98 F Temperature Source Temporal Oral Pulse Rate 115 H 112 H Respiratory Rate 19 H 17 Respiratory Effort Short of Breath Respiratory Depth Normal Respiratory Pattern Normal Blood Pressure 106/62 92/55 L Blood Pressure Mean 76 67 Pulse Ox 91 92 Oxygen Delivery Method Room Air Room Air Room Air 05/24/23 03:15 05/24/23 04:00 Temperature 98 F 97 F L Temperature Source Oral Temporal Pulse Rate 105 H 104 H Respiratory Rate 19 H 16 Respiratory Effort Respiratory Depth Respiratory Pattern Blood Pressure 92/55 L 100/51 L Blood Pressure Mean 67 67 Pulse Ox 92 93 Oxygen Delivery Method Room Air Room Air Weight Weight: 166 lb 3.657 oz Body Mass Index (BMI) 33.5 Physical Exam Const alert, oriented x3, no apparent distress and average body habitus Constitutional Narrative: Patient appears elderly and chronically ill. General Appearance: cooperative HEENT normocephalic, head/scalp atraumatic and hearing grossly normal bilaterally HEENT Narrative: Mucous membranes appear dry. Eyes PERRL, EOMs intact bilaterally and conjunctivae normal Neck no lymphadenopathy and supple Resp normal respiratory effort, no retractions, no use of accessory muscles and clear to auscultation bilaterally Cardio regular rate and regular rhythm Cardio Narrative: Tachycardia noted in the ~120 bpm range. GI normal to inspection, nondistended, normoactive bowel sounds GI Narrative: Left upper quadrant tender to palpation. No guarding or rebound was noted. Extremity normal to inspection, full ROM and no clubbing, cyanosis or edema Skin Skin Narrative: Patient has no evidence of rash or obvious jaundice at this time. Neuro oriented x3, CN's II-XII intact bilaterally, moves all extremities and no focal motor deficits Sensorium / Orientation: awake, alert, oriented to person, oriented to place and oriented to time Speech: speech normal Motor Exam: strength 5/5 throughout Psych affect normal Results Medical Records Data Attestation: I reviewed the patient's medical records Lab / Micro Data Attestation: I reviewed the patient's lab results. Lab results narrative: UN DATE: 05/24/23 [facility], DEPARTMENT OF LABORATORIES PAGE 1 RUN TIME: 06 Specimen Inquiry [address], [place], [address] PATIENT: LOUIS BOWERS LOC: [facility] U #: [id number] : 1940 AGE/SX: 82/F FACILITY: [facility] ROOM: [facility] RE05/24/[address]: Brayan Mckenzie STATUS:ADM JULIENNE ED: 1 DIS: ~ SPEC #: [id number] REED: 05/24/23 STATUS: COMP REQ #: [id number] RECD: 05/24/[address]: Dr. Larisa Wallace MD ENTERED: 05/24/23-[address]: Dr. Rupert Osullivan MD ~ COMMENTS: COLOR OF URINE MAY AFFECT DIPSTICK RESULTS. QUERIES: How was Urine Obtained? CLEAN CATCH Test Result Flag Adult Reference Range COMPLETE UA COLOR Sheila Yellow Urine Clarity Cloudy Clear GLUCOSE, UR Normal Normal mg/dl BILIRUBIN URINE 6 H Negative mg/dL COLOR OF URINE MAY AFFECT DIPSTICK RESULTS. KETONE UR 5 H Negative mg/dl SP.GR. DIPSTX 1.025 1.002-1.030 pH UR 5.0 5.0 - 8.0 PROT DIPSTX 30 H Negative mg/dl UROBILI 8 H Normal mg/dl NITRITE Positive H Negative OCCULT BLOOD-UR 25 H Negative /ul LEUK ESTERASE 500 H Negative /ul WBC >100 SEEN 0-5 /hpf RBC 10-25 SEEN 0-5 /hpf EPI,SQUAMOUS 5-10 SEEN 5-10 /hpf EPI,RENAL 10-25 SEEN 0-5 /hpf BACTERIA 3+ None Seen /hpf MUCUS 0 SEEN <or=2+ /hpf CAST,HYALINE 0-5 SEEN 0-5 /lpf CAST,FINE GRAN 0 SEEN 0-5 /lpf CAST,COARSE GR 0 SEEN 0-5 /lpf /lpf END OF REPORT 05/24/23 01:22 05/24/23 01:22 Labs: Laboratory Results - last 24 hr 05/24/23 01:22: WBC 8.1, RBC 4.71, Hgb 14.2, Hct 43.4, MCV 92.1, MCH 30.1, MCHC 32.7, RDW Std Deviation 53.7 H, RDW Coeff of Ryan 16.0 H, Plt Count 69 L, MPV TNP, Immature Gran % (Auto) 1.000 H, Neut % (Auto) 58.7, Lymph % (Auto) 17.2 L, [place] % (Auto) 20.1 H, Eos % (Auto) 2.0, Baso % (Auto) 1.0, Absolute Neuts (auto) 4.7, Absolute Lymphs (auto) 1.39, Nucleated RBC % 0.5, Sodium 136, Potassium 3.9, Chloride 104, Carbon Dioxide 23.0, Anion Gap 9, BUN 28 H, Creatinine 1.48 H, Estim Creat Clear Calc 26.13, Est GFR (MDRD) Af Amer 43 L, Est GFR (MDRD) Non-Af 36 L, BUN/Creatinine Ratio 18.9, Glucose 141 H, Calcium 9.5, Total Bilirubin 2.30 H, Direct Bilirubin 1.58 H, AST 137 H, ALT 163 H, Alkaline Phosphatase 215 H, Total Protein 6.9, Albumin 2.9 L, Globulin 4.0 05/24/23 01:30: Lactic Acid 1.5 Imaging Radiology Impression Abdomen/Pelvis CT 05/24/23 01:23 IMPRESSION: undefined Chest X-Ray 05/24/23 02:00 IMPRESSION: Small left pleural effusion with associated atelectasis. Superimposed mild infection or aspiration not excluded. Electronically Signed: Lázaro Can MD at 2:50 EST , Assessment & Plan Assessment/Plan (1) Acute cystitis without hematuria: (2) Elevated LFTs: (3) Hyperbilirubinemia: (4) Transaminasemia: (5) COPD with acute exacerbation: (6) DOUG (acute kidney injury): (7) Adverse drug reaction: QUALIFIERS: Encounter type: initial encounter Qualified Code(s): T50.905A - Adverse effect of unspecified drugs, medicaments and biological substances, initial encounter (8) Thrombocytopenia: PLAN: Plan 1. Acute cystitis; with microscopic hematuria that failed outpatient antibiotic treatment with oral Keflex and Pyridium - Admit to general medical floor. Give IV Zosyn for broad coverage of potentially multidrug-resistant organisms in this patient with documented outpatient treatment failure with cephalosporins. Avoid Tylenol with elevated LFTs and increased bilirubin. 2. Hyperbilirubinemia with a total bilirubin of 2.3 mg/dL present on admission (direct bilirubin 1.58 mg/dL) with an elevated AST of 137, elevated ALT of 163 and alkaline phosphatase elevated at 215 (with previous LFTs done a year ago that were normal) in the setting of previous cholecystectomy - Check hepatitis profile. Check MRCP as per gastroenterology recommendations. Avoid potentially hepatotoxic medications. Finally, we will consult franchise business consultant on-call to see patient on rounds in the a.m. for further recommendations regarding possible ERCP with help appreciated in advance. 3. Slowly developing moderate thrombocytopenia of 69 present on admission suspicious for possible slowly evolving ITP compounding #1 & #2 in the setting of chronic anemia - Check CBC daily to follow trend. Consider oncology consult for bone marrow biopsy and further evaluation and treatment if platelet count continues to fall. Avoid heparin or heparinoid's with platelet count less than 100 present on admission. 4. DOUG; with elevated serum creatinine of 1.48 mg/dL with a BUN of 28 mg/dL present on admission (up from her baseline serum creatinine of 0.9 mg/dL 3 weeks ago) consistent with acute dehydration adding to the pathology of #1 - #3 - Vigorously volume resuscitate with normal saline IV fluids and recheck BMP in the a.m. to ensure improvement. Follow strict I's and O's and check bladder scan to evaluate for potential urinary retention. 5. Adverse drug reaction to antibiotics causing nausea and vomiting with bilious emesis in this patient already on Lasix 20 mg p.o. twice daily plus losartan 50 mg p.o. daily likely causing #4 - Hold both Lasix and losartan until kidney function normalizes completely. Give Zofran IV as needed for breakthrough nausea and vomiting. Patient should likely avoid the combination of oral Keflex and Pyridium to minimize the chances of similar issues in the future. 6. History of tobacco abuse; with subsequent COPD in the setting of chronic obstructive sleep apnea and possible underlying pulmonary hypertension with progressively worsening shortness of breath and back pain for the past 6 weeks likely due to increased work of breathing from the stress of #1 - #5 - Give IV Solu-Medrol, antibiotics and scheduled and as needed nebulizers. Check echocardiogram this admission to evaluate for signs of elevated right-sided pressures to confirm suspicion. 7. GERD - Continue PPI IV with nausea and vomiting. 8. Essential hypertension; on Losartan and Lasix - Hold scheduled antihypertensives until volume status is corrected and kidney function improves back to baseline. 9. Hyperlipidemia - Hold statin in this elderly patient with elevated LFTs and hyperbilirubinemia. Check lipid profile this admission. 10. Hypothyroidism; with history of partial thyroidectomy (~2008) - Resume levothyroxine as previous plus check TSH this admission. 11. Obesity; with BMI of 33.6 this admission plus obstructive sleep apnea - Weight loss will be recommended. Continue nocturnal CPAP as previous. 12. Chronic atrial fibrillation; on Eliquis - Continue Eliquis as previous. 13. Chronic left bundle branch block - Noted. 14. Coronary artery disease; status post [place] with CABG x 3 (~1986) with redo x 2 (2005) plus coronary artery stent (2005) - Stable. Serialize troponin. 15. History of severe nonrheumatic aortic stenosis; s/p bioprosthetic aortic valve replacement (2015) - Noted. 16. History of carotid artery stenosis - Noted. 17. History of GI bleed (2015) - Noted. 18. History of lumpectomy of the left breast - Noted. 19. History of squamous cell carcinoma; status post excision - Noted. 20. History of Mohs surgery for basal cell carcinoma (~2007) - Noted. 21. Depression - Stable. 22. DVT prophylaxis - SCD's only with thrombocytopenia of 69 present on admission contraindicating treatment with heparin and heparinoids. Total time: Approximately 95 minutes. Charges/Coding Visit Charges Inpatient E&M: 68203 Init Hosp L3
[2023-05-24 05:38] LABS: Urine Bilirubin Dipstick 6 mg/dL (Negative)
[2023-05-24 05:39] LABS: Bacteria 3+ /hpf (None Seen); Coarse Granular Cast 0 SEEN /lpf (0-5 /lpf); Fine Granular Cast- Urine 0 SEEN /lpf (0-5); Red Blood Cells-Urine 10-25 SEEN /hpf (0-5); Renal Epithelial Cells 10-25 SEEN /hpf (0-5); Squamous Epithelial Cells - UA 5-10 SEEN /hpf (5-10); White Blood Cells >100 SEEN /hpf (0-5)
[2023-05-24 05:40] LABS: Hyaline Cast 0-5 SEEN /lpf (0-5)
[2023-05-24 05:50] LABS: International Normalized Ratio 1.5; Prothrombin Time (Protime)PT. 18.5 SECONDS (11.7-14.9)
[2023-05-24 05:51] LABS: Partial Thromboplast Time 36.9 Seconds (24.1-36.2)
--- OUTSIDE RECORDS SUMMARY | 2023-05-24 05:52 | XMS RPT_ITS | CCD ---
Author Name Unknown Address [address] [place] [address] Organization [facility] Care Team Providers Care Books Binder Name Role Phone Noe Rodriguez MD Unavailable Noe Rodriguez MD Unavailable [phone] Larisa Jean RN Unavailable Unavailable Abran HWANG, Naveen A Primary Care Provider [phone] Noe Rodriguez MD Unavailable [phone] Noe Rodriguez MD Unavailable [phone] Naveen Osullivan MD A Primary Care Provider [phone] OSULLIVAN, NAVEEN A Primary Care Unavailable OSULLIVAN, [...] Facility (20 sources) Lanolin Drug Allergy 09-29-2008 [facility] (20 sources) nickel sulfate Drug Allergy 12-09-2008 [facility] (20 sources) *Adhesive Tape Propensity to adverse reactions 03-22-2016 [facility] Medications Current Medications Medication Drug Class(es) Dates [...] Coronary atherosclerosis; Translations: [Atherosclerotic heart disease of red devil coronary artery without angina pectoris] Onset: 5 [...] mm[Hg] Juan Jose Ha MD Work Phone: [facility] 03-19-2023 12:15-0500 Heart rate 76 /min Juan Jose Ha MD Work Phone: [facility] 03-19-2023 12:15-0500 Respiratory rate 20 /min Juan Jose Ha MD Work Phone: [facility] 03-19-2023 12:15-0500 SaO2% (BldA) [Mass fraction] 96 % Juan Jose Ha MD Work Phone: [facility] 03-19-2023 12:15-0500 Systolic blood pressure 128 mm[Hg] Juan Jose Ha MD Work Phone: [facility] 03-19-2023 06:39-0500 Body height 149.9 cm Juan Jose Ha MD Work Phone: [facility] 03-19-2023 06:39-0500 Body mass index (BMI) [Ratio] 34.91 kg/m2 Juan Jose Ha MD Work Phone: [facility] 03-19-2023 06:39-0500 Body temperature 98.2 [degF] Juan Jose Ha MD Work Phone: [facility] 03-19-2023 06:39-0500 Body weight 78.4 kg Juan Jose Ha MD Work Phone: [facility] 03-05-2023 09:00-0500 Body height 149.9 cm Tayla Zahorujko PAC Work Phone: [facility] 03-05-2023 09:00-0500 Body mass index (BMI) [Ratio] 35.14 kg/m2 Tayla Zahorujko PAC Work Phone: [facility] 03-05-2023 09:00-0500 Body weight 78.93 kg Tayla Zahorujko PAC Work Phone: [facility] 03-05-2023 09:00-0500 Diastolic blood pressure 74 mm[Hg] Tayla Zahorujko PAC Work Phone: [facility] 03-05-2023 09:00-0500 Heart rate 80 /min Tayla Zahorujko PAC Work Phone: [facility] 03-05-2023 09:00-0500 Systolic blood pressure 126 mm[Hg] Tayla Zahorujko PAC Work Phone: [facility] 02-21-2023 15:21-0500 Body height 149.9 cm Von Tobias MD Work Phone: [facility] 02-21-2023 15:21-0500 Body mass index (BMI) [Ratio] 35.14 kg/m2 Von Tobias MD Work Phone: [facility] 02-21-2023 15:21-0500 Body weight 78.93 kg Von Tobias MD Work Phone: [facility] 02-21-2023 15:21-0500 Respiratory rate 14 /min Von Tobias MD Work Phone: [facility] 02-19-2023 11:55-0500 Body height 149.9 cm Tayla Zahorujko PAC Work Phone: [facility] 02-19-2023 11:55-0500 Body mass index (BMI) [Ratio] 35.2 kg/m2 Tayla Zahorujko PAC Work Phone: [facility] 02-19-2023 11:55-0500 Body weight 79.1 kg Tayla Zahorujko PAC Work Phone: [facility] 02-19-2023 11:55-0500 Diastolic blood pressure 78 mm[Hg] Tayla Zahorujko PAC Work Phone: [facility] 02-19-2023 11:55-0500 Systolic blood pressure 146 mm[Hg] Tayla Zahorujko PAC Work Phone: [facility] 02-19-2023 10:26-0500 Body height 149.9 cm Charbel Arteaga MD Work Phone: [facility] 02-19-2023 10:26-0500 Body mass index (BMI) [Ratio] 35.22 kg/m2 Charbel Arteaga MD Work Phone: [facility] 02-19-2023 10:26-0500 Body weight 79.11 kg Charbel Arteaga MD Work Phone: 7(746)288-586738 [place] [address] 02-19-2023 10:26-0500 Diastolic blood pressure 78 mm[Hg] Charbel Arteaga MD Work Phone: 3(642)813-485922 [address] 02-19-2023 10:26-0500 Heart rate 78 /min Charbel Arteaga MD Work Phone: 0(613)672-580722 [address] 02-19-2023 10:26-0500 Systolic blood pressure 146 mm[Hg] Charbel Arteaga MD Work Phone: [facility] 02-03-2023 09:31-0400 Body height 149.9 cm Maday Talbot MD Work Phone: [facility] 02-03-2023 09:31-0400 Body mass index (BMI) [Ratio] 35.39 kg/m2 Maday Talbot MD Work Phone: [facility] 02-03-2023 09:31-0400 Body weight 79.47 kg Maday Talbot MD Work Phone: [facility] 02-03-2023 09:31-0400 Diastolic blood pressure 72 mm[Hg] Maday Talbot MD Work Phone: [facility] 02-03-2023 09:31-0400 Heart rate 70 /min Maday Talbot MD Work Phone: [facility] 02-03-2023 09:31-0400 Systolic blood pressure 141 mm[Hg] Maday Talbot MD Work Phone: 8(553)490-701936 [place] [address] 01-21-2023 13:10-0400 Heart rate 67 /min Maday Talbot MD Work Phone: 7(991)860-950836 [place] [address] 01-21-2023 13:10-0400 Respiratory rate 23 /min Maday Talbot MD Work Phone: 3(015)560-765236 [place] [address] 01-21-2023 13:10-0400 SaO2% (BldA) [Mass fraction] 95 % Maday Talbot MD Work Phone: 0(643)145-883836 [place] [address] 01-21-2023 13:00-0400 Diastolic blood pressure 70 mm[Hg] Maday Talbot MD Work Phone: 2(245)895-525236 [place] [address] 01-21-2023 13:00-0400 Systolic blood pressure 151 mm[Hg] Maday Talbot MD Work Phone: 9(893)681-194636 [place] [address] 01-21-2023 08:45-0400 Body temperature 97.9 [degF] Maday Talbot MD Work Phone: 7(768)907-671236 [place] [address] 10-30-2022 08:36-0400 Body height 149.9 cm Maday Talbot MD Work Phone: 8(358)207-307336 [place] [address] 10-30-2022 08:36-0400 Body mass index (BMI) [Ratio] 36.07 kg/m2 Maday Talbot MD Work Phone: 8(127)373-249136 [place] [address] 10-30-2022 08:36-0400 Body weight 81.01 kg Maday Talbot MD Work Phone: 7(349)145-069336 [place] [address] 10-30-2022 08:36-0400 Diastolic blood pressure 80 mm[Hg] Maday Talbot MD Work Phone: 3(674)144-395936 [place] [address] 10-30-2022 08:36-0400 Heart rate 73 /min Maday Talbot MD Work Phone: 1(762)187-788636 [place] [address] 10-30-2022 08:36-0400 Respiratory rate 20 /min Maday Talbot MD Work Phone: [facility] 10-30-2022 08:36-0400 SaO2% (BldA) [Mass fraction] 97 % Maday Talbot MD Work Phone: 3(990)235-709736 [place] [address] 10-30-2022 08:36-0400 Systolic blood pressure 146 mm[Hg] Maday Talbot MD Work Phone: 9(656)753-155336 [place] [address] 10-30-2022 07:54-0400 Body mass index (BMI) [Ratio] 34.18 kg/m2 Tayla Zahorujko PAC Work Phone: 5(366)890-093936 [place] [address] 10-30-2022 07:54-0400 Body weight 79.38 kg Tayla Zahorujko PAC Work Phone: 5(323)543-080636 [place] [address] 10-30-2022 07:54-0400 Diastolic blood pressure 72 mm[Hg] Tayla Zahorujko PAC Work Phone: 1(539)734-034136 [place] [address] 10-30-2022 07:54-0400 Heart rate 63 /min Tayla Zahorujko PAC Work Phone: 0(687)557-396636 [place] [address] 10-30-2022 07:54-0400 Systolic blood pressure 158 mm[Hg] Tayla Zahorujko PAC Work Phone: 0(573)634-782536 [place] [address] 09-11-2022 12:03-0400 Body height 152.4 cm Maday Talbot MD Work Phone: 1(546)090-324736 [place] [address] 09-11-2022 12:03-0400 Body mass index (BMI) [Ratio] 34.43 kg/m2 Maday Talbot MD Work Phone: 6(905)342-109036 [place] [address] 09-11-2022 12:03-0400 Body temperature 97.9 [degF] Maday Talbot MD Work Phone: 8(349)704-544136 [place] [address] 09-11-2022 12:03-0400 Body weight 79.97 kg Maday Talbot MD Work Phone: [facility] 09-11-2022 12:03-0400 Diastolic blood pressure 92 mm[Hg] Maday Talbot MD Work Phone: [facility] 09-11-2022 12:03-0400 Heart rate 103 /min Maday Talbot MD Work Phone: [facility] 09-11-2022 12:03-0400 SaO2% (BldA) [Mass fraction] 95 % Maday Talbot MD Work Phone: [facility] 09-11-2022 12:03-0400 Systolic blood pressure 167 mm[Hg] Maday Talbot MD Work Phone: [facility] 08-20-2022 14:44-0400 Body height 152.4 cm Celio Stevenson MD Work Phone: [facility] 08-20-2022 14:44-0400 Body mass index (BMI) [Ratio] 34.18 kg/m2 Celio Stevenson MD Work Phone: [facility] 08-20-2022 14:44-0400 Body weight 79.38 kg Celio Stevenson MD Work Phone: [facility] 08-20-2022 14:44-0400 Heart rate 82 /min Celio Stevenson MD Work Phone: [facility] 08-20-2022 14:44-0400 SaO2% (BldA) [Mass fraction] 96 % Celio Stevenson MD Work Phone: [facility] 07-01-2022 17:49-0400 Diastolic blood pressure 79 mm[Hg] Melody Ren MD Work Phone: [facility] 07-01-2022 17:49-0400 Heart rate 97 /min Melody Ren MD Work Phone: [facility] 07-01-2022 17:49-0400 Systolic blood pressure 178 mm[Hg] Melody Ren MD Work Phone: 9(623)365-529189 [place] [address] 07-01-2022 17:47-0400 Body height 152.4 cm Melody Ren MD Work Phone: 8(530)508-034489 [place] [address] 06-05-2022 15:01-0500 Body height 152.4 cm Melody Ren MD Work Phone: 0(876)901-950989 [place] [address] 06-05-2022 15:01-0500 Diastolic blood pressure 79 mm[Hg] Melody Ren MD Work Phone: 2(890)707-614489 [place] [address] 06-05-2022 15:01-0500 Heart rate 86 /min Melody Ren MD Work Phone: 3(875)044-942789 [place] [address] 06-05-2022 15:01-0500 Systolic blood pressure 180 mm[Hg] Melody Ren MD Work Phone: 9(042)713-464089 [place] [address] 04-25-2022 13:12-0500 Body height 152.4 cm Melody Ren MD Work Phone: 7(910)697-143189 [place] [address] 04-25-2022 13:12-0500 Body mass index (BMI) [Ratio] 34.65 kg/m2 Melody Ren MD Work Phone: 6(708)154-767789 [place] [address] 04-25-2022 13:12-0500 Body weight 80.47 kg Melody Ren MD Work Phone: 0(110)510-093489 [place] [address] 04-25-2022 13:12-0500 Diastolic blood pressure 72 mm[Hg] Melody Ren MD Work Phone: 3(728)442-979989 [place] [address] 04-25-2022 13:12-0500 Heart rate 80 /min Melody Ren MD Work Phone: 3(435)598-100389 [place] [address] 04-25-2022 13:12-0500 Systolic blood pressure 138 mm[Hg] Melody Ren MD Work Phone: [facility] 09-05-2021 14:41-0400 Body height 152.4 cm Maday Talbot MD Work Phone: [facility] 09-05-2021 14:41-0400 Body mass index (BMI) [Ratio] 32.22 kg/m2 Maday Talbot MD Work Phone: [facility] 09-05-2021 14:41-0400 Body weight 74.84 kg Maday Talbot MD Work Phone: [facility] 09-05-2021 14:41-0400 Diastolic blood pressure 71 mm[Hg] Maday Talbot MD Work Phone: [facility] 09-05-2021 14:41-0400 Heart rate 79 /min Maday Talbot MD Work Phone: [facility] 09-05-2021 14:41-0400 SaO2% (BldA) [Mass fraction] 98 % Maday Talbot MD Work Phone: [facility] 09-05-2021 14:41-0400 Systolic blood pressure 126 mm[Hg] Maday Talbot MD Work Phone: [facility] Encounters Encounter Date Encounter Type Care Provider Facility Start: 05-28-2023 ambulatory CELIO STEVENSON [facility] y:[facility] Start: 04-15-2023 Evaluation and management of inpatient NAVEEN OSULLIVAN Facility:[facility] Start: 04-14-2023 ambulatory NAVEEN OSULLIVAN Facility:[facility] Start: 04-10-2023 Telephone encounter Larisa Brooks RN [facility] Procedures Date Procedure Procedure Detail Performing Clinician [...] Detail Author Start: 08-21-2031 Tetanus vaccination TETANUS [facility] Start: 10-31-2023 Potassium [Moles/volume] in Serum or Plasma POTASSIUM [facility] Start: 05-28-2023 End: 05-28-2023 Patient encounter procedure [facility] Start: 04-25-2023 Thyroid stimulating hormone measurement TSH [facility] Start: 04-14-2023 End: 04-14-2023 Patient encounter procedure 04/14/2023 1:30 PM EST Office Visit [facility] [address] [place] [address] Maday Talbot MD [address] [facility] [address] [place] [address] [facility] [place] Start: 03-24-2023 End: 03-24-2024 Basic metabolic 2000 panel - Serum or Plasma BASIC METABOLIC PANEL Lab Routine 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), bioprosthetic Permanent atrial fibrillation Essential hypertension Expected: 03/24/2023, Expires: 03/24/2024 [facility] Immunizations Immunization Date Immunization Notes Care Provider Fa cility 02-01-2022 Influenza Vaccine, Quadrivalent, Adjuvanted Melody Ren MD Work Phone: 5(418)490-502234 [place] [address] 02-01-2022 influenza virus vacc ine, unspecified formulation Maday Talbot MD Work Phone: [facility] 08-20-2021 COVID-19 vaccine, Michael Hodges, 50 mcg/0.25 mL booster Melody Ren MD Work Phone: [facility] 08-20-2021 tetanus toxoid, redu jens diphtheria toxoid, and acellular pertussis vaccine, adsorbed Melody Ren MD Work Phone: 9(248)272-233234 [place] [address] 03-02-2021 COVID-19 vaccine, Michael Hodges, 50 mcg/0.25 mL booster Melody Ren MD Work Phone: 4(849)162-451789 [place] [address] 02-19-2021 Influenza Vaccine, Quadrivalent, Adjuvanted Melody Ren MD Work Phone: 4(461)082-917289 [place] [address] 06-28-2020 hepatitis A vaccine, adult dosage Melody Ren MD Work Phone: 1(285)015-210489 [place] [address] 05-26-2020 COVID-19 vaccine, Michael Hodges, 100 mcg/0.5 mL Melody Ren MD Work Phone: 4(301)260-325889 [place] [address] 05-08-2020 COVID-19 vaccine, Michael Hodges, 100 mcg/0.5 mL Melody Ren MD Work Phone: 4(597)882-438589 [place] [address] 04-28-2020 COVID-19 vaccine, Michael Hodges, 100 mcg/0.5 mL Melody Ren MD Work Phone: 2(595)302-708589 [place] [address] 04-07-2020 COVID-19 vaccine, Michael Hogdes, 100 mcg/0.5 mL Melody Ren MD Work Phone: 6(044)451-154689 [place] [address] 02-21-2020 zoster vaccine recombinant Melody Ren MD Work Phone: 4(125)612-806243 [address] 10-29-2019 hepatitis A vaccine, adult dosage Melody Ren MD Work Phone: [facility] 10-29-2019 zoster vaccine recombinant Melody Ren MD Work Phone: [facility] 01-07-2018 influenza, injectabl e, quadrivalent, contains preservative Melody Ren MD Work Phone: [facility] 01-06-2018 influenza, high dose seasonal, preservative-free Melody Ren MD Work Phone: [facility] 01-03-2017 influenza, injectabl e, quadrivalent, contains preservative Melody Ren MD Work Phone: [facility] 01-06-2016 influenza virus vacc ine, unspecified formulation Maday Talbot MD Work Phone: [facility] 01-04-2016 influenza, seasonal, injectable Melody Ren MD Work Phone: [facility] 02-05-2014 pneumococcal conjuga te vaccine, 13 valent Melody Ren MD Work Phone: [facility] 08-05-2005 pneumococcal polysaccharide vaccine, 23 valent Melody Ren MD Work Phone: [facility] Payers Date Payer Category Payer Medicare MEDICARE [employer] HMO PPO MEDICARE [employer] O PPO [id number] 2017-Present [address] [address] [place] [address] [id number] 2017 Medicare [id number] 1940 Unknown [id number] 1939 Unknown [id number] 2..[id number] 1939 Unknown [id number] 2..[id number] 1939 Unknown [id number] [id number] 1939 Unknown [id number] [id number] 1939 Unknown [id number] 2.16.840.1.481622.3.579.2.594 1939 Unknown [id number] [id number] 1939 Unknown [id number] 2.16.840.1.342550.3.579.2.594 1939 Unknown [id number] [id number] 1939 Unknown [id number] 2.16.840.1.584500.3.579.2.594 1939 Unknown [id number] [id number] 1939 Unknown [id number] 2.16840.1.741839.3.579.2.594 1939 Unknown [id number] 2.16840.1.269218.3.579.2.594 1939 Unknown [id number] [id number] 1939 Unknown [id number] 2.16840.1.261936.3.579.2.594 1939 Unknown [id number] [id number] 1939 Unknown [id number] 2.16.840.1.810860.3.579.2.594 1939 Unknown [id number] 2.16.840.1.004527.3.579.2.594 1939 Unknown [id number] [id number] 1939 Unknown [id number] [id number] 1939 Unknown [id number] [id number] Social History Date Type Detail Facility Start: 01-15-2016 End: 02-19-2023 Tobacco smoking status NHIS Ex-smoker [facility] Start: 1956 End: 04-07-2003 History of tobacco use Current smoker [facility] Start: 1956 End: 04-07-2003 History of tobacco use Cigarette Smoker [facility] Start: 01-15-2016 End: 04-14-2023 Cigarettes smoked current (pack per day) - Reported 1 [facility] Start: 01-15-2016 End: 02-19-2023 Tobacco use and exposure Smokeless tobacco non-user [facility] Start: 09-05-2021 End: 03-19-2023 Alcohol intake Current drinker of alcohol (finding) [facility] Start: 12-09-2008 History SDOH Alcohol Comment occasionally [facility] Start: 02-09-2015 End: 04-25-2022 Tobacco Comment quit 11 years ago [facility] Start: 1940 Sex Assigned At Not on file [facility] Start: 03-03-2022 End: 04-25-2022 Exposure to SARS-CoV-2 (event) Unable to assess [facility] Start: 04-25-2022 Alcohol Comment Wine with dinn er once in awhile [facility] Start: 05-26-2022 End: 06-05-2022 Exposure to SARS-CoV-2 (event) Not sure [facility] Start: 09-11-2022 End: 04-14-2023 Tobacco use panel [facility] Gender identity Identifies as fe male gender (finding) [facility] Medical Equipment Procedure Code Equipment Code Equipment Origin al Text Equipment Identifier Dates Nichole Starr 58cm - [id number] Start: 02-01-2016 Valve Tavr Evolu t 26 - [id number] Start: 01-31-2016 Clinical Notes 09-05-2021 to 04-15-2023 Telephone Encounter - Vanessa Ruggiero RN - 04/15/2023 3:02 PM ESTTelephone Encounter - Vanessa Ruggiero RN - 04/15/2023 3:02 PM ESTTelephone Encounter - Vanessa Ruggiero RN - 04/15/2023 2:27 PM EST Note Date & Type Note Facility 04-15-2023 Telephone encounter Note Faxed lab order [facility] 04-15-2023 Miscellaneous Notes Faxed lab order MALINA patent's daughter, Silvestre. Will fax lab orders to [facility]. Silvestre wants to know if patient can start cardiac rehab in [place]. After labs ordered will need faxed to [phone], [facility] outpatient lab. Images from the original [...] Received: Yesterday Charbel Arteaga MD [facility] Triage Pool Outside labs noted: K of 3.5 and BUN/Cr of 28/0.95. Please check on the patient with respect to any ongoing symptoms / concerns - especially volume related - which will help guide further care. Spoke with pt's daughter Silvestre. Reports Dot is currently not feeling well - being treated by [employer] Supervisor for an URI with prednisone and antibiotic. [...] needed. She will follow up with a NPR message when she gets home. Pt is interested in cardiac rehab. [facility] 04-15-2023 Telephone encounter Note SW cherie's daughter, Silvestre. Will fax lab orders to [facility]. Silvestre wants to know if patient can start cardiac rehab in [place]. After labs ordered will need faxed to [phone], [facility] outpatient lab. [facility] 04-15-2023 Telephone encounter Note Images from the original note were not included. Charbel Arteaga MD You21 hours ago (4:23 PM) Plan: continue the furosemide / lasix at 20 mg po bid and the K supplement at 10 mEq po BID; monitor symptoms / findings; obtain a chem 6 on with results to this office. Thank you. [facility] 04-11-2023 Telephone encounter Note SW patient's daughter Silvestre, gave Dr Arteaga's recommendations. [facility] 04-11-2023 Miscellaneous Notes SW patient's daughter Silvestre, [...] Labs: Received: Yesterday Charbel Arteaga MD [facility] Outside labs noted: K of 3.5 and BUN/Cr of 28/0.95. Please check on the patient with respect to any ongoing symptoms / concerns - especially volume related - which will help guide further care. Spoke with pt's daughter Silvestre. Reports Dot is currently not feeling well - being treated by [employer] for an URI with prednisone and antibiotic. [...] needed. She will follow up with a NPR message when she gets home. Pt is interested in cardiac rehab. documented in this encounter [facility] 04-11-2023 Telephone encounter Note Images from the [...] to her lower extremity edema. Thank you. [facility] 04-10-2023 Telephone encounter Note Images from the original note were not included. Outside Labs: Received: Yesterday MD [facility] Triage Pool Outside labs noted: K of 3.5 and BUN/Cr of 28/0.95. Please check on the patient with respect to any ongoing symptoms / concerns - especially volume related - which will help guide further care. Spoke with pt's daughter Silvestre. Reports Dot is currently not feeling well - being treated by [employer] Supervisor for an URI with prednisone and antibiotic. [...] needed. She will follow up with a NPR message when she gets home. Pt is interested in cardiac rehab. [facility] 04-09-2023 Telephone encounter Note Received lab results from [facility]. Sent to scanning for upload into chart. Copy given to Dr. Arteaga. [facility] 04-09-2023 Miscellaneous Notes Received lab results from [facility]. Sent to scanning for upload into chart. Copy given to Dr. Arteaga. Faxed to [phone] The LVEDP is a blood pressure recording [...] labs are signed, they need faxed to [facility]. Spoke with patient's daughter regarding the [...] Cardiac cath: Received: Today Charbel Arteaga MD [facility] Please update the patient that her cardiac cath procedure was received / reviewed. 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 She did not require additional PTCA. The recommendation is for her to continue medical therapy and follow up. Thank you. Sending mychart. documented in this encounter [facility] 03-24-2023 Telephone encounter Note Faxed to [phone] [facility] 03-24-2023 Telephone encounter Note The LVEDP is [...] labs are signed, they need faxed to [facility]. [facility] 03-21-2023 Telephone encounter Note Spoke with patient's daughter regarding the above results and recommendations. Patient's daughter verbalized understanding. She said there was concerns of the LVEDP. Is this something that needs addressed? She noted that the patient has been more short of breath than normal. She is currently on 20 mg lasix daily. [facility] 03-20-2023 Telephone encounter Note Images from the original note were not included. Cardiac cath: Received: Today Charbel Arteaga MD [facility] Pool Please update the patient that her cardiac cath procedure was received / reviewed. 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 She did not require additional PTCA. The recommendation is for her to continue medical therapy and follow up. Thank you. Sending mychart. [facility] 03-19-2023 Nurse Note After Visit Summary [...] at time of discharge. Hayley Melendez RN [facility] 03-19-2023 Miscellaneous Notes After Visit Summary [...] Brief Cardiac Catheterization Procedure Note Kiara Martinez ([id number]) Pre Procedural Diagnosis Abnormal stress test [R94.39] [...] Swapnil Gilmore MD - Fellow Procedural Staff Criminal Legal Assistant: Vandana Knox RN; Patty Gallegos RN Documenter: [...] fib. Hayley Melendez RN PREPARING FOR YOUR AREA SUPERVISOR PROCEDURE Your catheterization is scheduled on 03/19/23 at: [facility] located at [address], [place] [address]. You are to arrive at [facility] on the 1st floor at 6:00 AM You may use foundry superintendant parking ($10) or park in the [employer] [facility] [facility] just past the [address] [place] ($3). There is a walkway from the [...] please call NOW to notify the lab ([phone]). You may receive sedation during your procedure [...] REGARDING THE PROCEDURE CALL US AT : [phone] THANK YOU, JEYSON DE LUNA Superintendent Job Scheduling The above instructions were given to [...] an hour. documented in this encounter [facility] 03-19-2023 Surgery Postoperative evaluation and management note Preliminary Report - Brief Cardiac Catheterization Procedure Note Kiara Hilaria Martinez ([id number]) Pre Procedural Diagnosis Abnormal stress test [R94.39] [...] Swapnil Gilmore MD - Fellow Procedural Staff Criminal Legal Assistant: Vandana Knox RN; Patty Gallegos RN Documenter: Toshia Hernandez RN Full report to follow Swapnil Gilmore MD March 19, 2023 9:26 AM [facility] 03-19-2023 History and physical note PRE-CATH [...] coronary angiography. Tigre Mortensen, Fellow, Cardiovascular Medicine [facility] Work Phone: 03-19-2023 History and physical [...] Fellow, Cardiovascular Medicine documented in this encounter [facility] 03-19-2023 Nurse Note Pt arrives to room [...] shows a fib. Hayley Melendez RN [facility] 03-06-2023 Nurse Note PREPARING FOR YOUR AREA SUPERVISOR PROCEDURE Your catheterization is scheduled on 03/19/23 at: [facility] located at [address] [place] [address]. You are to arrive at [facility] on the 1st floor at 6:00 AM You may use foundry superintendant parking ($10) or park in the [employer] [facility] [facility] just past the [place] ($3). There is a walkway from the 2nd floor of the garage into the [facility]. You are to have nothing to eat [...] please call NOW to notify the lab ([phone]). You may receive sedation during your procedure [...] REGARDING THE PROCEDURE CALL US AT : [phone] THANK YOU, JEYSON DE LUNA Superintendent Job Scheduling The above instructions were given to patient verbally over the phone AND VIA MY CHART [facility] 03-06-2023 Nurse Note I called to schedule Ms.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 Melody Ren MD [address] [place] [phone] Referral ID Status Reason Start Date Expiration Date V isits Requested Visits Authorized [id number] New Request 04/25/2022 05/20/2023 1 1 Referral ID Status Reason Start Date Expiration Date Visits Re quested Visits Authorized [id number] Closed 04/25/2022 05/20/2023 1 1 Specialty Diagnoses / Procedures Referred By Contac t Referred To Contact Diagnoses Peripheral vertigo involving left ear Procedures MRI INTERNAL AUDITORY CANAL WITH AND WITHOUT CONTRAST ID MRI BRAIN COMBO Melody Ren MD [address] [place] [phone] Referral ID Status Reason Start Date Expiration Date Visits Re quested Visits Authorized [id number] Closed 06/07/2022 07/02/2023 1 1 Specialty Diagnoses / Procedures Referred By Contac t Referred To Contact Diagnoses Vestibular schwannoma Procedures MRI INTERNAL AUDITORY CANAL WITH AND WITHOUT CONTRAST ID MRI BRAIN COMBO Celio Stevenson MD [address] [facility] [place] [address] [place] [phone] Referral ID Status Reason Start Date Expiration Date V isits Requested Visits Authorized [id number] New Request 08/20/2022 09/14/2023 1 1 Specialty Diagnoses / Procedures Referred By Contac t Referred To Contact Diagnoses Bilateral carotid artery stenosis Procedures VASC DUPLEX CAROTID BILATERAL Tayla Carter, PAC [address] [place] [address] Referral ID Status Reason Start Date Expiration Date V isits Requested Visits Authorized [id number] New Request 03/13/2022 04/07/2023 1 1 Specialty Diagnoses / Procedures Referred By Contac t Referred To Contact Diagnoses Bilateral carotid artery stenosis Procedures CT ANGIO BRAIN/NECK ID CT ANGIO,HEAD COMBO,INCL IMAGE PROCESS ID CT ANGIO,NECK COMBO,INCL IMAGE PROCESS Tayla Carter, PAC [address] [place] [address] Referral ID Status Reason Start Date Expiration Date V isits Requested Visits Authorized [id number] New Request 09/11/2022 10/06/2023 1 1 Specialty Diagnoses / Procedures Referred By Contac t Referred To Contact Diagnoses Asymptomatic bilateral carotid artery stenosis Procedures ECG Tayla Carter R, PAC [address] [place] [address] Referral ID Status Reason Start Date Expiration Date V isits Requested Visits Authorized [id number] New Request 10/30/2022 11/24/2023 1 1 Referral ID Status Reason Start Date Expiration Date Visits Re quested Visits Authorized [id number] Closed 09/11/2022 10/06/2023 1 1 Specialty Diagnoses / Procedures Referred By Contac t Referred To Contact Echocardiography Diagnoses 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 Procedures ECHOCARDIOGRAM ID ECHO HEART XTHORACIC,COMPLETE W DOPPLER Maday Talbot MD [address] [facility] [address] 5[address] [address] [address] [place] [address] Referral ID Status Reason Start Date Expiration Date Visits Re quested Visits Authorized [id number] Closed 01/31/2023 02/25/2024 1 1 Specialty Diagnoses / Procedures Referred By Sammyac t Referred To Contact Diagnoses 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 Procedures NUC MYOCARD PERF STRESS MIBI PHARM ID CHG MYOCARDIAL SPECT MULTIPLE STUDIES CHG MYOCARDIAL SPECT MULTIPLE STUDIES-T ID CARDIAC STRESS TST,INTERP/REPT ONLY ID CV STRS TST XERS&/OR RX CONT ECG W/O I&R Maday Talbot MD [address] [facility] 5th [address] [address] Referral ID Status Reason Start Date Expiration Date Visits Re quested Visits Authorized [id number] Closed 01/31/2023 02/25/2024 1 1 Specialty Diagnoses / Procedures Referred By Courtney t Referred To Contact Procedures ECG Escobar Reaves MD [address] [place] [address] Referral ID Status Reason Start Date Expiration Date V isits Requested Visits Authorized [id number] New Request 03/19/2023 04/12/2024 1 1 Additional Source Comments INFORMATION SOURCE (unrecogn ized section and content) DATE CREATED AUTHOR AUTHOR'S ORGANIZ ATION 05/23/2023 [facility] Reason for Visit (unrecogniz ed section and content) Specialty Diagnoses / Procedures Referred By Courtney t Referred To Contact Diagnoses Bilateral carotid artery stenosis Procedures VASC DUPLEX CAROTID BILATERAL VASC DUPLEX CAROTID BILATERAL Maday Talbot MD [address] [facility] [address]th [address] [address] Referral ID Status Reason Start Date Expiration Date V isits Requested Visits Authorized [id number] New Request 09/05/2021 09/30/2022 1 1 Reason Comments New Patient Specialty Diagnoses / Procedures Referred By Courtney t Referred To Contact Neurology Diagnoses Bilateral carotid artery stenosis Dizziness Maday Talbot MD [address] [facility] [address] 5th Floor [address] [address] [address] Referral ID Status Reason Start Date Expiration Date V isits Requested Visits Authorized [id number] New Request 09/05/2021 09/30/2022 1 1 Specialty Diagnoses / Procedures Referred By Contac t Referred To Contact Diagnoses Loss of memory Procedures MRI BRAIN WITHOUT CONTRAST ID MRI BRAIN Melody Ren MD [address] [phone] Referral ID Status Reason Start Date Expiration Date Visits Re quested Visits Authorized [id number] Closed 04/25/2022 05/20/2023 1 1 Specialty Diagnoses / Procedures Referred By Sammyac t Referred To Contact Diagnoses Peripheral vertigo involving left ear Procedures MRI INTERNAL AUDITORY CANAL WITH AND WITHOUT CONTRAST ID MRI BRAIN COMBO Melody Ren MD [address] [phone] Referral ID Status Reason Start Date Expiration Date Visits Re quested Visits Authorized [id number] Closed 06/07/2022 07/02/2023 1 1 Reason Comments Vestibular Schwanoma vestibular schwanno ma pt stated that she is a nodule behind her left ear and she gets dizzy some times Specialty Diagnoses / Procedures Referred By Sammyac t Referred To Contact Diagnoses Bilateral carotid artery stenosis Procedures VASC DUPLEX CAROTID BILATERAL Tayla Carter R, PAC [address] [place] [address] Referral ID Status Reason Start Date Expiration Date V isits Requested Visits Authorized [id number] New Request 03/13/2022 04/07/2023 1 1 Reason Comments Follow-up Reason Comments Follow-up Follow up after CTA Specialty Diagnoses / Procedures Referred By Contac t Referred To Contact Diagnoses Bilateral carotid artery stenosis Procedures CT ANGIO BRAIN/NECK ID CT ANGIO,HEAD COMBO,INCL IMAGE PROCESS ID CT ANGIO,NECK COMBO,INCL IMAGE PROCESS Tayla Carter, PAC [address] [place] [address] Referral ID Status Reason Start Date Expiration Date Visits Re quested Visits Authorized [id number] Closed 09/11/2022 10/06/2023 1 1 Specialty Diagnoses / Procedures Referred By Courtney t Referred To Contact Diagnoses Bilateral carotid artery stenosis Bilateral carotid artery stenosis [I65.23] Procedures ID PLACE CATH SUBSELECT ART,NECK PLACEMENT CATHETER SELECTIVE ARTERY INITIAL 2ND ORDER THORACIC/BRACHIOCEPHALIC Maday Talbot MD [facility] 5th Floor [address] [address] [facility] [address] [place] [address] Referral ID Status Reason Start Date Expiration Date Visits Re quested Visits Authorized [id number] 1 1 Reason Comments Surgical Follow-up Follow-up [...] due to calcified coronary lesion Procedures ECHOCARDIOGRAM ID ECHO HEART XTHORACIC,COMPLETE W DOPPLER Maday Talbot MD [address] [facility] 5th Floor [address] [address] [address] [place] [address] Referral ID Status Reason Start Date Expiration Date Visits Re quested Visits Authorized [id number] Closed 01/31/2023 02/25/2024 1 1 Reason Comments Consult Patient here for voc al cord check. 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 Procedures NUC MYOCARD PERF STRESS MIBI PHARM ID CHG MYOCARDIAL SPECT MULTIPLE STUDIES CHG MYOCARDIAL SPECT MULTIPLE STUDIES-T ID CARDIAC STRESS TST,INTERP/REPT ONLY ID CV STRS TST XERS&/OR RX CONT ECG W/O I&R Maday Talbot MD [address] [facility] [address] 5th Floor [address] [place] [address] Referral ID Status Reason Start Date Expiration Date Visits Re quested Visits Authorized [id number] Closed 01/31/2023 02/25/2024 1 1 Specialty Diagnoses / Procedures Referred By Contac t Referred To Contact Diagnoses Abnormal stress test Abnormal stress test [R94.39] Procedures ID CATH PLMT L HRT & ARTS W/NJX & ANGIO IMG S&I CORONARY ANGIOGRAM CORONARY BYPASS GRAFT ANGIOGRAM LEFT HEART CATHETERIZATION [facility] [address] [place] [address] [facility] [address] [place] [address] Referral ID Status Reason Start Date Expiration Date Visits Re quested Visits Authorized [id number] 1 1 Reason Onset Date Comments Results 03/20/2023 Reason Onset Date Comments Results 04/10/2023 Care Teams (unrecognized sec tion and content) Books Binder 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 Specialty Start Date End Date Noe Rodriguez MD [address] [address] 517- PCP - Referring 1 Cardiovascular Disease 02/07/16 Naveen Osullivan MD [address] [place], [place] [id number] PCP - General Family Medicine 03/22/16 Noe Rodriguez MD 1760 [facility] [address] [place] [address] Referring Provider Cardiovascular Disease 12/18/15 Larisa Jean, ANNAMARIE Registered Nurse 03/05/16 Books Binder 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 Specialty Start Date End Date Noe Rodriguez MD [address] [address] PCP - Referring 1 Cardiovascular Disease 02/07/16 Naveen Osullivan MD [address] [place] [address] PCP - General Family Medicine 03/22/16 Noe Rodriguez MD [address] [facility] [address] [place] [address] Referring Provider Cardiovascular Disease 12/18/15 Larisa Jean, RN Registered Nurse 03/05/16 Books Binder 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 Specialty Start Date End Date Noe Rodriguez MD [address] [place] [address] PCP - Referring 1 Cardiovascular Disease 02/07/16 Naveen Osullivan MD [address] [place] [address] PCP - General Family Medicine 03/22/16 Noe Rodriguez MD [address] [facility] [address] [place] [address] Referring Provider Cardiovascular Disease 12/18/15 Larisa Jean RN Registered Nurse 03/05/16 Books Binder 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 Specialty Start Date End Date Noe Rodriguez MD [address] [place] [address] [place] [address] PCP - Referring 1 Cardiovascular Disease 02/07/16 Naveen Osullivan MD [address] [place] [address] PCP - General Family Medicine 03/22/16 Noe Rodriguez MD [address] [facility] [address] [address] [place] [address] Referring Provider Cardiovascular Disease 12/18/15 Larisa Jean, RN Registered Nurse 03/05/16 Books Binder 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 Specialty Start Date End Date Noe Rodriguez MD [address] [place] [address] PCP - Referring 1 Cardiovascular Disease 02/07/16 Naveen Osullivan MD [address] [facility] [place] [address] PCP - General Family Medicine 03/22/16 Noe Rodriguez MD [address] [facility] [address] [place] [address] Referring Provider Cardiovascular Disease 12/18/15 Larisa Jean, RN Registered Nurse 03/05/16 Books Binder 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 Specialty Start Date End Date Noe Rodriguez MD [address] [place] [address] PCP - Referring 1 Cardiovascular Disease 02/07/16 Naveen Osullivan MD [address] [place] [address] PCP - General Family Medicine 03/22/16 Noe Rodriguez MD [address] [facility] [address] [place] [address] Referring Provider Cardiovascular Disease 12/18/15 Larisa Jean, RN Registered Nurse 03/05/16 Books Binder 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 Specialty Start Date End Date Noe Rodriguez MD [address] [place] [address] PCP - Referring 1 Cardiovascular Disease 02/07/16 Naveen Osullivan MD [address] [facility] [place] [address] PCP - General Family Medicine 03/22/16 Noe Rodriguez MD [address] [facility] [address] [place] [address] Referring Provider Cardiovascular Disease 12/18/15 Larisa Jean, RN Registered Nurse 03/05/16 Books Binder 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 Specialty Start Date End Date Noe Rodriguez MD [address] [place] [address] PCP - Referring 1 Cardiovascular Disease 02/07/16 Naveen Osullivan MD [address] [place] [address] PCP - General Family Medicine 03/22/16 Noe Rodriguez MD [address] [facility] [address] [place] [address] Referring Provider Cardiovascular Disease 12/18/15 Larisa Jean RN Registered Nurse 03/05/16 Books Binder 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 Specialty Start Date End Date Noe Rodriguez MD [address] [place] [address] PCP - Referring 1 Cardiovascular Disease 02/07/16 Naveen Osullivan MD [address] [facility] [place] [address] PCP - General Family Medicine 03/22/16 Noe Rodriguez MD [address] [facility] [address] [place] [address] Referring Provider Cardiovascular Disease 12/18/15 Larisa Jean, RN Registered Nurse 03/05/16 Books Binder 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 Specialty Start Date End Date Noe Rodriguez MD [address] [place] [address] PCP - Referring 1 Cardiovascular Disease 02/07/16 Naveen Osullivan MD [address] [place] [address] PCP - General Family Medicine 03/22/16 Noe Rodriguez MD [address] [facility] [address] [place] [address] Referring Provider Cardiovascular Disease 12/18/15 Larisa Jean, RN Registered Nurse 03/05/16 Books Binder 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 Specialty Start Date End Date Noe Rodriguez MD [address] [place] [address] PCP - Referring 1 Cardiovascular Disease 02/07/16 Naveen Osullivan MD [address] [place] [address] PCP - General Family Medicine 03/22/16 Noe Rodriguez MD [address] [facility] [address] [place] [address] Referring Provider Cardiovascular Disease 12/18/15 Larisa Jean, RN Registered Nurse 03/05/16 Books Binder 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 Specialty Start Date End Date Noe Rodriguez MD [address] [place] [address] PCP - Referring 1 Cardiovascular Disease 02/07/16 Naveen Osullivan MD [address] [place] [address] PCP - General Family Medicine 03/22/16 Noe Rodriguez MD [address] [facility] [address] [place] [address] Referring Provider Cardiovascular Disease 12/18/15 Larisa Jean, RN Registered Nurse 03/05/16 Books Binder 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 Specialty Start Date End Date Noe Rodriguez MD [address] [place] [address] PCP - Referring 1 Cardiovascular Disease 02/07/16 Naveen Osullivan MD [address] [place] [address] PCP - General Family Medicine 03/22/16 Noe Rodriguez MD [address] [facility] [address] [place] [address] Referring Provider Cardiovascular Disease 12/18/15 Larisa Jean RN Registered Nurse 03/05/16 Books Binder 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 Specialty Start Date End Date Noe Rodriguez MD [address] [place] [address] PCP - Referring 1 Cardiovascular Disease 02/07/16 Naveen Osullivan MD [address] [place] [address] PCP - General Family Medicine 03/22/16 Noe Rodriguez MD [address] [facility] [address] [place] [address] Referring Provider Cardiovascular Disease 12/18/15 Larisa Jean, RN Registered Nurse 03/05/16 Books Binder 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 Specialty Start Date End Date Noe Rodriguez MD [address] [place] [address] PCP - Referring 1 Cardiovascular Disease 02/07/16 Naveen Osullivan MD [address] [place] [address] PCP - General Family Medicine 03/22/16 Noe Rodriguez MD [address] [facility] [address] [place] [address] Referring Provider Cardiovascular Disease 12/18/15 Larisa Jean, RN Registered Nurse 03/05/16 Books Binder 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 Specialty Start Date End Date Noe Rodriguez MD [address] [place] [address] PCP - Referring 1 Cardiovascular Disease 02/07/16 Naveen Osullivan MD [address] [place] [address] PCP - General Family Medicine 03/22/16 Noe Rodriguez MD [address] [facility] [address] [place] [address] Referring Provider Cardiovascular Disease 12/18/15 Larisa Jean, RN Registered Nurse 03/05/16 03/05/23 Books Binder 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 Specialty Start Date End Date Noe Rodriguez MD [address] [place] [address] PCP - Referring 1 Cardiovascular Disease 02/07/16 Naveen Osullivan MD [address] [place] [address] PCP - General Family Medicine 03/22/16 Noe Rodriguez MD [address] [facility] [address] [place] [address] Referring Provider Cardiovascular Disease 12/18/15 Books Binder 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 Specialty Start Date End Date Noe Rodriguez MD [address] [place] [address] PCP - Referring 1 Cardiovascular Disease 02/07/16 Naveen Osullivan MD [address] [place] [address] PCP - General Family Medicine 03/22/16 Noe Rodriguez MD [address] [facility] [address] [place] [address] Referring Provider Cardiovascular Disease 12/18/15 Books Binder 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 Specialty Start Date End Date Noe Rodriguez MD [address] [place] [address] PCP - Referring 1 Cardiovascular Disease 02/07/16 Naveen Osullivan MD [address] [place] [address] PCP - General Family Medicine 03/22/16 Noe Rodriguez MD [address] [facility] [place] [address] Referring Provider Cardiovascular Disease 12/18/15 Books Binder 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 Specialty Start Date End Date Noe Rodriguez MD [address] [place] [address] PCP - Referring 1 Cardiovascular Disease 02/07/16 Naveen Osullivan MD [address] [place] [address] PCP - General Family Medicine 03/22/16 Noe Rodriguez MD [address] [facility] [place] [address] Referring Provider Cardiovascular Disease 12/18/15 Scheduled Active [...] BE BASED ON THE PRIMARY CLINICAL RECORDS. [facility] provides no warranty or guarantee of the accuracy or completeness of information in this document.
--- NOTE | 2023-05-24 06:40 | NURSING ---
MED SURG OBS KRYSTEN BACK PAIN, ELEVATED LEFTS, THROMBOCYTOPENIA
[2023-05-24] MEDS: Ceftriaxone 1 GM/50 ML BAG IV (06:56)
--- OUTSIDE RECORDS SUMMARY | 2023-05-24 07:04 | XMS RPT_ITS | CCD ---
Author Name Unknown Address [address] [place] [address] Organization [facility] Care Team Providers Care Corporate Ethics Officer Name Role Phone Noe Rodriguez MD Unavailable Noe Rodriguez MD Unavailable [phone] Larisa Jean RN Unavailable Unavailable Abran HWANG, Naveen A Primary Care Provider [phone] Noe Rodriguez MD Unavailable [phone] Noe Rodriguez MD Unavailable [phone] Naveen Osullivan MD A Primary Care Provider [phone] OSULLIVAN, NAVEEN A Primary Care Unavailable OSULLIVAN, NAVENE A Primary Care Unavailable ZAHORUJKO, TAYLA R [...] Facility (20 sources) Lanolin Drug Allergy 09-29-2008 [facility] (20 sources) nickel sulfate Drug Allergy 12-09-2008 [facility] (20 sources) *Adhesive Tape Propensity to adverse reactions 03-22-2016 [facility] Medications Current Medications Medication Drug [...] Coronary atherosclerosis; Translations: [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] Onset: 5 [...] mm[Hg] Juan Jose Ha MD Work Phone: [facility] 03-19-2023 12:15-0500 Heart rate 76 /min Juan Jose Ha MD Work Phone: [facility] 03-19-2023 12:15-0500 Respiratory rate 20 /min Juan Jose Ha MD Work Phone: [facility] 03-19-2023 12:15-0500 SaO2% (BldA) [Mass fraction] 96 % Juan Jose Ha MD Work Phone: [facility] 03-19-2023 12:15-0500 Systolic blood pressure 128 mm[Hg] Juan Jose Ha MD Work Phone: [facility] 03-19-2023 06:39-0500 Body height 149.9 cm Juan Jose Ha MD Work Phone: [facility] 03-19-2023 06:39-0500 Body mass index (BMI) [Ratio] 34.91 kg/m2 Juan Jose Ha MD Work Phone: [facility] 03-19-2023 06:39-0500 Body temperature 98.2 [degF] Juan Jose Ha MD Work Phone: [facility] 03-19-2023 06:39-0500 Body weight 78.4 kg Juan Jose Ha MD Work Phone: [facility] 03-05-2023 09:00-0500 Body height 149.9 cm Tayla Zahorujko PAC Work Phone: [facility] 03-05-2023 09:00-0500 Body mass index (BMI) [Ratio] 35.14 kg/m2 Tayla Zahorujko PAC Work Phone: [facility] 03-05-2023 09:00-0500 Body weight 78.93 kg Tayla Zahorujko PAC Work Phone: [facility] 03-05-2023 09:00-0500 Diastolic blood pressure 74 mm[Hg] Tayla Zahorujko PAC Work Phone: [facility] 03-05-2023 09:00-0500 Heart rate 80 /min Tayla Zahorujko PAC Work Phone: [facility] 03-05-2023 09:00-0500 Systolic blood pressure 126 mm[Hg] Tayla Zahorujko PAC Work Phone: [facility] 02-21-2023 15:21-0500 Body height 149.9 cm Von Tobias MD Work Phone: [facility] 02-21-2023 15:21-0500 Body mass index (BMI) [Ratio] 35.14 kg/m2 Von Tobias MD Work Phone: [facility] 02-21-2023 15:21-0500 Body weight 78.93 kg Von Tobias MD Work Phone: [facility] 02-21-2023 15:21-0500 Respiratory rate 14 /min Von Tobias MD Work Phone: [facility] 02-19-2023 11:55-0500 Body height 149.9 cm Tayla Zahorujko PAC Work Phone: [facility] 02-19-2023 11:55-0500 Body mass index (BMI) [Ratio] 35.2 kg/m2 Tayla Zahorujko PAC Work Phone: [facility] 02-19-2023 11:55-0500 Body weight 79.1 kg Tayla Zahorujko PAC Work Phone: [facility] 02-19-2023 11:55-0500 Diastolic blood pressure 78 mm[Hg] Tayla Zahorujko PAC Work Phone: [facility] 02-19-2023 11:55-0500 Systolic blood pressure 146 mm[Hg] Tayla Zahorujko PAC Work Phone: [facility] 02-19-2023 10:26-0500 Body height 149.9 cm Charbel Arteaga MD Work Phone: [facility] 02-19-2023 10:26-0500 Body mass index (BMI) [Ratio] 35.22 kg/m2 Charbel Arteaga MD Work Phone: [facility] 02-19-2023 10:26-0500 Body weight 79.11 kg Charbel Arteaga MD Work Phone: 5(378)062-882531 [place] [address] 02-19-2023 10:26-0500 Diastolic blood pressure 78 mm[Hg] Charbel Arteaga MD Work Phone: 2(531)499-508045 [address] 02-19-2023 10:26-0500 Heart rate 78 /min Charbel Arteaga MD Work Phone: 0(760)561-411745 [address] 02-19-2023 10:26-0500 Systolic blood pressure 146 mm[Hg] Charbel Arteaga MD Work Phone: [facility] 02-03-2023 09:31-0400 Body height 149.9 cm Maday Talbot MD Work Phone: [facility] 02-03-2023 09:31-0400 Body mass index (BMI) [Ratio] 35.39 kg/m2 Maday Talbot MD Work Phone: [facility] 02-03-2023 09:31-0400 Body weight 79.47 kg Maday Talbot MD Work Phone: [facility] 02-03-2023 09:31-0400 Diastolic blood pressure 72 mm[Hg] Maday Talbot MD Work Phone: [facility] 02-03-2023 09:31-0400 Heart rate 70 /min Maday Talbot MD Work Phone: [facility] 02-03-2023 09:31-0400 Systolic blood pressure 141 mm[Hg] Maday Talbot MD Work Phone: 0(190)453-721754 [place] [address] 01-21-2023 13:10-0400 Heart rate 67 /min Maday Talbot MD Work Phone: 7(708)510-708654 [place] [address] 01-21-2023 13:10-0400 Respiratory rate 23 /min Maday Talbot MD Work Phone: 5(930)035-756854 [place] [address] 01-21-2023 13:10-0400 SaO2% (BldA) [Mass fraction] 95 % Maday Talbot MD Work Phone: 6(346)295-257154 [place] [address] 01-21-2023 13:00-0400 Diastolic blood pressure 70 mm[Hg] Maday Talbot MD Work Phone: 6(671)942-045654 [place] [address] 01-21-2023 13:00-0400 Systolic blood pressure 151 mm[Hg] Maday Talbot MD Work Phone: 3(693)763-462854 [place] [address] 01-21-2023 08:45-0400 Body temperature 97.9 [degF] Maday Talbot MD Work Phone: 8(741)510-318754 [place] [address] 10-30-2022 08:36-0400 Body height 149.9 cm Maday Talbot MD Work Phone: 8(011)735-149354 [place] [address] 10-30-2022 08:36-0400 Body mass index (BMI) [Ratio] 36.07 kg/m2 Maday Talbot MD Work Phone: 2(896)556-435154 [place] [address] 10-30-2022 08:36-0400 Body weight 81.01 kg Maday Talbot MD Work Phone: 5(048)430-315454 [place] [address] 10-30-2022 08:36-0400 Diastolic blood pressure 80 mm[Hg] Maday Talbot MD Work Phone: 9(637)196-053154 [place] [address] 10-30-2022 08:36-0400 Heart rate 73 /min Maday Talbot MD Work Phone: 7(216)859-278054 [place] [address] 10-30-2022 08:36-0400 Respiratory rate 20 /min Maday Talbot MD Work Phone: [facility] 10-30-2022 08:36-0400 SaO2% (BldA) [Mass fraction] 97 % Maday Talbot MD Work Phone: 2(576)932-398654 [place] [address] 10-30-2022 08:36-0400 Systolic blood pressure 146 mm[Hg] Maday Talbot MD Work Phone: 2(755)475-846954 [place] [address] 10-30-2022 07:54-0400 Body mass index (BMI) [Ratio] 34.18 kg/m2 Tayla Zahorujko PAC Work Phone: 8(256)880-184354 [place] [address] 10-30-2022 07:54-0400 Body weight 79.38 kg Tayla Zahorujko PAC Work Phone: 6(639)606-212954 [place] [address] 10-30-2022 07:54-0400 Diastolic blood pressure 72 mm[Hg] Tayla Zahorujko PAC Work Phone: 2(824)435-851454 [place] [address] 10-30-2022 07:54-0400 Heart rate 63 /min Tayla Zahorujko PAC Work Phone: 6(763)087-944554 [place] [address] 10-30-2022 07:54-0400 Systolic blood pressure 158 mm[Hg] Tayla Zahorujko PAC Work Phone: 3(078)137-387054 [place] [address] 09-11-2022 12:03-0400 Body height 152.4 cm Maday Talbot MD Work Phone: 8(235)694-999254 [place] [address] 09-11-2022 12:03-0400 Body mass index (BMI) [Ratio] 34.43 kg/m2 Maday Talbot MD Work Phone: 9(894)860-083054 [place] [address] 09-11-2022 12:03-0400 Body temperature 97.9 [degF] Maday Talbot MD Work Phone: 9(851)713-713154 [place] [address] 09-11-2022 12:03-0400 Body weight 79.97 kg Maday Talbot MD Work Phone: [facility] 09-11-2022 12:03-0400 Diastolic blood pressure 92 mm[Hg] Maday Talbot MD Work Phone: [facility] 09-11-2022 12:03-0400 Heart rate 103 /min Maday Talbot MD Work Phone: [facility] 09-11-2022 12:03-0400 SaO2% (BldA) [Mass fraction] 95 % Maday Talbot MD Work Phone: [facility] 09-11-2022 12:03-0400 Systolic blood pressure 167 mm[Hg] Maday Talbot MD Work Phone: [facility] 08-20-2022 14:44-0400 Body height 152.4 cm Celio Stevenson MD Work Phone: [facility] 08-20-2022 14:44-0400 Body mass index (BMI) [Ratio] 34.18 kg/m2 Celio Stevenson MD Work Phone: [facility] 08-20-2022 14:44-0400 Body weight 79.38 kg Celio Stevenson MD Work Phone: [facility] 08-20-2022 14:44-0400 Heart rate 82 /min Celio Stevenson MD Work Phone: [facility] 08-20-2022 14:44-0400 SaO2% (BldA) [Mass fraction] 96 % Celio Stevenson MD Work Phone: [facility] 07-01-2022 17:49-0400 Diastolic blood pressure 79 mm[Hg] Melody Ren MD Work Phone: [facility] 07-01-2022 17:49-0400 Heart rate 97 /min Melody Ren MD Work Phone: [facility] 07-01-2022 17:49-0400 Systolic blood pressure 178 mm[Hg] Melody Ren MD Work Phone: 2(932)675-801504 [place] [address] 07-01-2022 17:47-0400 Body height 152.4 cm Melody Ren MD Work Phone: 4(692)505-459304 [place] [address] 06-05-2022 15:01-0500 Body height 152.4 cm Melody Ren MD Work Phone: 3(997)906-340504 [place] [address] 06-05-2022 15:01-0500 Diastolic blood pressure 79 mm[Hg] Melody Ren MD Work Phone: 0(381)986-888504 [place] [address] 06-05-2022 15:01-0500 Heart rate 86 /min Melody Ren MD Work Phone: 2(094)250-616404 [place] [address] 06-05-2022 15:01-0500 Systolic blood pressure 180 mm[Hg] Melody Ren MD Work Phone: 6(584)678-678304 [place] [address] 04-25-2022 13:12-0500 Body height 152.4 cm Melody Ren MD Work Phone: 9(076)705-061904 [place] [address] 04-25-2022 13:12-0500 Body mass index (BMI) [Ratio] 34.65 kg/m2 Melody Ren MD Work Phone: 3(214)131-092904 [place] [address] 04-25-2022 13:12-0500 Body weight 80.47 kg Melody Ren MD Work Phone: 3(125)549-958104 [place] [address] 04-25-2022 13:12-0500 Diastolic blood pressure 72 mm[Hg] Melody Ren MD Work Phone: 9(676)003-330504 [place] [address] 04-25-2022 13:12-0500 Heart rate 80 /min Melody Ren MD Work Phone: 8(289)902-673004 [place] [address] 04-25-2022 13:12-0500 Systolic blood pressure 138 mm[Hg] Melody Ren MD Work Phone: [facility] 09-05-2021 14:41-0400 Body height 152.4 cm Maday Talbot MD Work Phone: [facility] 09-05-2021 14:41-0400 Body mass index (BMI) [Ratio] 32.22 kg/m2 Maday Talbot MD Work Phone: [facility] 09-05-2021 14:41-0400 Body weight 74.84 kg Maday Talbot MD Work Phone: [facility] 09-05-2021 14:41-0400 Diastolic blood pressure 71 mm[Hg] Maday Talbot MD Work Phone: [facility] 09-05-2021 14:41-0400 Heart rate 79 /min Maday Talbot MD Work Phone: [facility] 09-05-2021 14:41-0400 SaO2% (BldA) [Mass fraction] 98 % Maday Talbot MD Work Phone: [facility] 09-05-2021 14:41-0400 Systolic blood pressure 126 mm[Hg] Maday Talbot MD Work Phone: [facility] Encounters Encounter Date Encounter Type Care Provider Facility Start: 05-28-2023 ambulatory CELIO STEVENSON [facility] y:[facility] Start: 04-15-2023 Evaluation and management of inpatient NAVEEN OSULLIVAN Facility:[facility] Start: 04-14-2023 ambulatory NAVEEN OSULLIVAN Facility:[facility] Start: 04-10-2023 Telephone encounter Larisa Brooks RN [facility] [place] Procedures Date Procedure Procedure Detail Performing Clinician [...] Detail Author Start: 08-21-2031 Tetanus vaccination TETANUS [facility] Start: 10-31-2023 Potassium [Moles/volume] in Serum or Plasma POTASSIUM [facility] Start: 05-28-2023 End: 05-28-2023 Patient encounter procedure [facility] [place] Start: 04-25-2023 Thyroid stimulating hormone measurement TSH [facility] Start: 04-14-2023 End: 04-14-2023 Patient encounter procedure 04/14/2023 1:30 PM EST Office Visit [facility] [address] [place] [address] Maday Talbot MD [address] [place] [address] [facility] Start: 03-24-2023 End: 03-24-2024 Basic metabolic 2000 panel - Serum or Plasma BASIC METABOLIC PANEL Lab Routine 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), bioprosthetic Permanent atrial fibrillation Essential hypertension Expected: 03/24/2023, Expires: 03/24/2024 [facility] Immunizations Immunization Date Immunization Notes Care Provider Fa cility 02-01-2022 Influenza Vaccine, Quadrivalent, Adjuvanted Melody Ren MD Work Phone: 2(674)627-427414 [place] [address] 02-01-2022 influenza virus vacc ine, unspecified formulation Maday Talbot MD Work Phone: [facility] 08-20-2021 COVID-19 vaccine, Michael Hodges, 50 mcg/0.25 mL booster Melody Ren MD Work Phone: [facility] 08-20-2021 tetanus toxoid, redu jens diphtheria toxoid, and acellular pertussis vaccine, adsorbed Melody Ren MD Work Phone: 9(587)515-537214 [place] [address] 03-02-2021 COVID-19 vaccine, Michael Hodges, 50 mcg/0.25 mL booster Melody Ren MD Work Phone: 0(915)507-266304 [place] [address] 02-19-2021 Influenza Vaccine, Quadrivalent, Adjuvanted Melody Ren MD Work Phone: 9(891)734-298704 [place] [address] 06-28-2020 hepatitis A vaccine, adult dosage Melody Ren MD Work Phone: 8(349)649-819404 [place] [address] 05-26-2020 COVID-19 vaccine, Michael Hodges, 100 mcg/0.5 mL Melody Ren MD Work Phone: 9(677)082-999504 [place] [address] 05-08-2020 COVID-19 vaccine, Michael Hodges, 100 mcg/0.5 mL Melody Ren MD Work Phone: 0(517)042-290804 [place] [address] 04-28-2020 COVID-19 vaccine, Michael Hodges, 100 mcg/0.5 mL Melody Ren MD Work Phone: 1(574)054-801304 [place] [address] 04-07-2020 COVID-19 vaccine, Michael Hodges, 100 mcg/0.5 mL Melody Ren MD Work Phone: 8(361)030-759604 [place] [address] 02-21-2020 zoster vaccine recombinant Melody Ren MD Work Phone: 9(388)027-056088 [address] 10-29-2019 hepatitis A vaccine, adult dosage Melody Ren MD Work Phone: [facility] 10-29-2019 zoster vaccine recombinant Melody Ren MD Work Phone: [facility] 01-07-2018 influenza, injectabl e, quadrivalent, contains preservative Melody Ren MD Work Phone: [facility] 01-06-2018 influenza, high dose seasonal, preservative-free Melody Ren MD Work Phone: [facility] 01-03-2017 influenza, injectabl e, quadrivalent, contains preservative Melody Ren MD Work Phone: [facility] 01-06-2016 influenza virus vacc ine, unspecified formulation Maday Talbot MD Work Phone: [facility] 01-04-2016 influenza, seasonal, injectable Melody Ren MD Work Phone: [facility] 02-05-2014 pneumococcal conjuga te vaccine, 13 valent Melody Ren MD Work Phone: [facility] 08-05-2005 pneumococcal polysaccharide vaccine, 23 valent Melody Ren MD Work Phone: [facility] Payers Date Payer Category Payer Medicare MEDICARE [employer] HMO PPO MEDICARE [employer] O PPO [id number] 2017-Present [address] [address] [place] [address] [id number] 2017 Medicare [id number] 1940 Unknown [id number] 1940 Unknown [id number] 2..[id number] 1939 Unknown [id number] 2..[id number] 1939 Unknown [id number] [id number] 1939 Unknown [id number] [id number] 1939 Unknown [id number] [id number] 1939 Unknown [id number] [id number] 1939 Unknown [id number] [id number] 1939 Unknown [id number] 2.16.840.1.934988.3.579.2.594 1939 Unknown [id number] [id number] 1939 Unknown [id number] [id number] 1939 Unknown [id number] [id number] 1939 Unknown [id number] [id number] 1939 Unknown [id number] [id number] 1939 Unknown [id number] [id number] 1939 Unknown [id number] [id number] 1939 Unknown [id number] [id number] 1939 Unknown [id number] [id number] 1939 Unknown [id number] [id number] 1939 Unknown [id number] [id number] 1939 Unknown [id number] [id number] Social History Date Type Detail Facility Start: 01-15-2016 End: 02-19-2023 Tobacco smoking status NHIS Ex-smoker [facility] Start: 1956 End: 04-07-2003 History of tobacco use Current smoker [facility] Start: 1956 End: 04-07-2003 History of tobacco use Cigarette Smoker [facility] Start: 01-15-2016 End: 04-14-2023 Cigarettes smoked current (pack per day) - Reported 1 [facility] Start: 01-15-2016 End: 02-19-2023 Tobacco use and exposure Smokeless tobacco non-user [facility] Start: 09-05-2021 End: 03-19-2023 Alcohol intake Current drinker of alcohol (finding) [facility] Start: 12-09-2008 History SDOH Alcohol Comment occasionally [facility] Start: 02-09-2015 End: 04-25-2022 Tobacco Comment quit 11 years ago [facility] Start: 1940 Sex Assigned At Not on file [facility] Start: 03-03-2022 End: 04-25-2022 Exposure to SARS-CoV-2 (event) Unable to assess [facility] Start: 04-25-2022 Alcohol Comment Wine with dinn er once in awhile [facility] Start: 05-26-2022 End: 06-05-2022 Exposure to SARS-CoV-2 (event) Not sure [facility] Start: 09-11-2022 End: 04-14-2023 Tobacco use panel [facility] Gender identity Identifies as fe male gender (finding) [facility] Medical Equipment Procedure Code Equipment Code Equipment Origin al Text Equipment Identifier Dates Nichole Starr 58cm - [id number] Start: 02-01-2016 Valve Tavr Evolu t 26 - [id number] Start: 01-31-2016 Clinical Notes 09-05-2021 to 04-15-2023 Telephone Encounter - Vanessa Ruggiero RN - 04/15/2023 3:02 PM ESTTelephone Encounter - Vanessa Ruggiero RN - 04/15/2023 3:02 PM ESTTelephone Encounter - Vanessa Ruggiero RN - 04/15/2023 2:27 PM EST Note Date & Type Note Facility 04-15-2023 Telephone encounter Note Faxed lab order [facility] 04-15-2023 Miscellaneous Notes Faxed lab order MALINA patent's daughter, Silvestre. Will fax lab orders to [facility]. Silvestre wants to know if patient can start cardiac rehab in [place]. After labs ordered will need faxed to [phone], [facility] outpatient lab. Images from the original [...] Outside Labs: Received: Yesterday Charbel Arteaga MD [facility] Triage Pool Outside labs noted: K of 3.5 and BUN/Cr of 28/0.95. Please check on the patient with respect to any ongoing symptoms / concerns - especially volume related - which will help guide further care. Spoke with pt's daughter Silvestre. Reports Dot is currently not feeling well - being treated by [facility] for an URI with prednisone and antibiotic. [...] needed. She will follow up with a [employer] message when she gets home. Pt is interested in cardiac rehab. documented in this encounter [facility] 04-15-2023 Telephone encounter Note SW cherie's daughter, Silvestre. Will fax lab orders to [facility]. Silvestre wants to know if patient can start cardiac rehab in [place]. After labs ordered will need faxed to [phone], [facility] outpatient lab. [facility] 04-15-2023 Telephone encounter Note Images from the original note were not included. Charbel Arteaga MD You21 hours ago (4:23 PM) Plan: continue the furosemide / lasix at 20 mg po bid and the K supplement at 10 mEq po BID; monitor symptoms / findings; obtain a chem 6 on with results to this office. Thank you. [facility] 04-11-2023 Telephone encounter Note SW patient's daughter Silvestre, gave Dr Arteaga's recommendations. [facility] 04-11-2023 Miscellaneous Notes SW patient's [...] Labs: Received: Yesterday Charbel Arteaga MD [facility] Outside labs noted: K of 3.5 and BUN/Cr of 28/0.95. Please check on the patient with respect to any ongoing symptoms / concerns - especially volume related - which will help guide further care. Spoke with pt's daughter Silvestre. Reports Dot is currently not feeling well - being treated by [facility] for an URI with prednisone and antibiotic. [...] needed. She will follow up with a [employer] message when she gets home. Pt is interested in cardiac rehab. documented in this encounter [facility] 04-11-2023 Telephone encounter Note Images [...] to her lower extremity edema. Thank you. [facility] 04-10-2023 Telephone encounter Note Images from the original note were not included. Outside Labs: Received: Yesterday MD [facility] [place] Triage Pool Outside labs noted: K of 3.5 and BUN/Cr of 28/0.95. Please check on the patient with respect to any ongoing symptoms / concerns - especially volume related - which will help guide further care. Spoke with pt's daughter Silvestre. Reports Dot is currently not feeling well - being treated by [facility] for an URI with prednisone and antibiotic. [...] needed. She will follow up with a [employer] message when she gets home. Pt is interested in cardiac rehab. [facility] 04-09-2023 Telephone encounter Note Received lab results from [facility]. Sent to scanning for upload into chart. Copy given to Dr. Arteaga. [facility] 04-09-2023 Miscellaneous Notes Received lab results from [facility]. Sent to scanning for upload into chart. Copy given to Dr. Arteaga. Faxed to [phone] The LVEDP is a blood pressure recording [...] labs are signed, they need faxed to [facility]. Spoke with patient's daughter regarding the [...] Cardiac cath: Received: Today Charbel Arteaga MD [facility] Please update the patient that her cardiac cath procedure was received / reviewed. 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 She did not require additional PTCA. The recommendation is for her to continue medical therapy and follow up. Thank you. Sending mychart. documented in this encounter [facility] 03-24-2023 Telephone encounter Note Faxed to [phone] [facility] 03-24-2023 Telephone encounter Note The [...] labs are signed, they need faxed to [facility]. [facility] 03-21-2023 Telephone encounter Note Spoke with patient's daughter regarding the above results and recommendations. Patient's daughter verbalized understanding. She said there was concerns of the LVEDP. Is this something that needs addressed? She noted that the patient has been more short of breath than normal. She is currently on 20 mg lasix daily. [facility] 03-20-2023 Telephone encounter Note Images from the original note were not included. Cardiac cath: Received: Today Charbel Arteaga MD [facility] Pool Please update the patient that her cardiac cath procedure was received / reviewed. 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 She did not require additional PTCA. The recommendation is for her to continue medical therapy and follow up. Thank you. Sending mychart. [facility] 03-19-2023 Nurse Note After Visit Summary [...] at time of discharge. Hayley Melendez RN [facility] 03-19-2023 Miscellaneous Notes After Visit Summary [...] Brief Cardiac Catheterization Procedure Note Kiara Martinez ([id number]) Pre Procedural Diagnosis Abnormal stress test [R94.39] [...] Swapnil Gilmore MD - Fellow Procedural Staff Charcoal [employer] Kiln: Vandana Knox RN; Patty Gallegos RN Documenter: [...] fib. Hayley Melendez RN PREPARING FOR YOUR ART DISPLAY MAKER PROCEDURE Your catheterization is scheduled on 03/19/23 at: [facility] at the [facility] located at [address], [place] [address]. You are to arrive at [facility] on the 1st floor at 6:00 AM You may use epic specialist parking ($10) or park in the [facility] [employer] [facility] just past the [place] ($3). There is a walkway from the 2nd floor of the garage [facility] You are to have nothing to eat [...] please call NOW to notify the lab ([phone]). You may receive sedation during your procedure [...] AFTER THE PROCEDURE. Labs: PLEASE GO TO [facility] TO HAVE YOUR LAB WORK DRAWN [...] REGARDING THE PROCEDURE CALL US AT : [phone] THANK YOU, JEYSON DE LUNA Irrigation Laborer Scheduling The above instructions were given to [...] an hour. documented in this encounter [facility] 03-19-2023 Surgery Postoperative evaluation and management note Preliminary Report - Brief Cardiac Catheterization Procedure Note Kiara Hilaria Martinez ([id number]) Pre Procedural Diagnosis Abnormal stress test [R94.39] [...] Swapnil Gilmore MD - Fellow Procedural Staff [employer]: Vandana Knox RN; Patty Gallegos RN Documenter: Toshia Hernandez RN Full report to follow Swapnil Gilmore MD March 19, 2023 9:26 AM [facility] 03-19-2023 History and physical note PRE-CATH [...] coronary angiography. Tigre Mortensen, Fellow, Cardiovascular Medicine [facility] Work Phone: 03-19-2023 History and physical [...] Fellow, Cardiovascular Medicine documented in this encounter [facility] 03-19-2023 Nurse Note Pt arrives [...] shows a fib. Hayley Melendez RN [facility] 03-06-2023 Nurse Note PREPARING FOR YOUR ART DISPLAY MAKER PROCEDURE Your catheterization is scheduled on 03/19/23 at: [facility] at the [facility] located at [address] [place] [address]. You are to arrive at [facility] on the 1st floor at 6:00 AM You may use epic specialist parking ($10) or park in the [employer] [facility] [facility] just past the [place] ($3). There is a walkway from the 2nd floor of the garage into the [facility]. You are to have nothing to eat [...] please call NOW to notify the lab ([phone]). You may receive sedation during your procedure [...] AFTER THE PROCEDURE. Labs: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 Diagnosis Bilateral carotid artery stenosis- Primary Occlusion 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 without mention of cerebral infarction [facility] Diagnosis Asymptomatic bilateral carotid artery stenosis- Primary Occlusion 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 without mention of cerebral infarction Abnormal finding of blood chemistry, unspecified Asymptomatic bilateral carotid artery stenosis Occlusion 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 without mention of cerebral infarction [facility] Bilateral carotid artery stenosis Occlusion 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 without mention of cerebral infarction [facility] Asymptomatic bilateral carotid artery stenosis Occlusion 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 without mention of cerebral infarction [facility] Diagnosis Asymptomatic carotid artery stenosis Occlusion and stenosis of carotid artery without mention of cerebral infarction [facility] Bilateral carotid artery stenosis- Primary Occlusion 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 without mention of cerebral infarction [facility] Diagnosis 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 without angina pectoris- Primary 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), bioprosthetic Permanent atrial fibrillation Atrial fibrillation Essential hypertension Unspecified essential hypertension Hyperlipidemia, unspecified hyperlipidemia type Asymptomatic bilateral carotid artery stenosis Occlusion 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 without mention of cerebral infarction Pre-operative cardiovascular examination [facility] Obesity: body mass index [...] Unspecified essential hypertension 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 without angina pectoris Nonrheumatic aortic valve stenosis Aortic valve disorders [facility] Diagnosis 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 [facility] Diagnosis 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 without angina pectoris- Primary 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), bioprosthetic Permanent atrial fibrillation Atrial fibrillation Essential hypertension Unspecified essential hypertension Hyperlipidemia, unspecified hyperlipidemia type Asymptomatic bilateral carotid artery stenosis Occlusion 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 without mention of cerebral infarction Pre-operative cardiovascular examination [facility] Diagnosis 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 [facility] Diagnosis Abnormal stress test Other nonspecific abnormal cardiovascular system function study Abnormal stress test Other nonspecific abnormal cardiovascular system function study [facility] Diagnosis 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 * Cardiac Cath Care After - Wrist Site ([facility]) (Citizen Of [place]) [facility] Family History No Family [...] DUPLEX CAROTID BILATERAL Maday Talbot MD [address] [facility] [address]th [address] [address] Referral ID Status Reason Start Date Expiration Date V isits Requested Visits Authorized [id number] New Request 09/05/2021 09/30/2022 1 1 Specialty Diagnoses / Procedures Referred By Contac t Referred To Contact Neurology Diagnoses Bilateral carotid artery stenosis Dizziness Maday Talbot MD [address] [facility] [address] [address] Referral ID Status Reason Start Date Expiration Date V isits Requested Visits Authorized [id number] New Request 09/05/2021 09/30/2022 1 1 Specialty Diagnoses / Procedures Referred By Contac t Referred To Contact Diagnoses Loss of memory Procedures MRI BRAIN WITHOUT CONTRAST NE MRI BRAIN Melody Ren MD [address] [place] [phone] Referral ID Status Reason Start Date Expiration Date V isits Requested Visits Authorized [id number] New Request 04/25/2022 05/20/2023 1 1 Referral ID Status Reason Start Date Expiration Date Visits Re quested Visits Authorized [id number] Closed 04/25/2022 05/20/2023 1 1 Specialty Diagnoses / Procedures Referred By Contac t Referred To Contact Diagnoses Peripheral vertigo involving left ear Procedures MRI INTERNAL AUDITORY CANAL WITH AND WITHOUT CONTRAST NE MRI BRAIN COMBO Melody Ren MD [address] [place] [phone] Referral ID Status Reason Start Date Expiration Date Visits Re quested Visits Authorized [id number] Closed 06/07/2022 07/02/2023 1 1 Specialty Diagnoses / Procedures Referred By Contac t Referred To Contact Diagnoses Vestibular schwannoma Procedures MRI INTERNAL AUDITORY CANAL WITH AND WITHOUT CONTRAST NE MRI BRAIN COMBO Celio Stevenson MD [address] [facility] [address] [place] [phone] Referral ID Status Reason Start Date Expiration Date V isits Requested Visits Authorized [id number] New Request 08/20/2022 09/14/2023 1 1 Specialty Diagnoses / Procedures Referred By Contac t Referred To Contact Diagnoses Bilateral carotid artery stenosis Procedures VASC DUPLEX CAROTID BILATERAL Tayla Carter, PAC [address] [place] [address] Referral ID Status Reason Start Date Expiration Date V isits Requested Visits Authorized [id number] New Request 03/13/2022 04/07/2023 1 1 Specialty Diagnoses / Procedures Referred By Contac t Referred To Contact Diagnoses Bilateral carotid artery stenosis Procedures CT ANGIO BRAIN/NECK NE CT ANGIO,HEAD COMBO,INCL IMAGE PROCESS NE CT ANGIO,NECK COMBO,INCL IMAGE PROCESS Tayla Carter, PAC [address] [place] [address] Referral ID Status Reason Start Date Expiration Date V isits Requested Visits Authorized [id number] New Request 09/11/2022 10/06/2023 1 1 Specialty Diagnoses / Procedures Referred By Contac t Referred To Contact Diagnoses Asymptomatic bilateral carotid artery stenosis Procedures ECG Tayla Carter R, PAC [address] [place] [address] Referral ID Status Reason Start Date Expiration Date V isits Requested Visits Authorized [id number] New Request 10/30/2022 11/24/2023 1 1 Referral ID Status Reason Start Date Expiration Date Visits Re quested Visits Authorized [id number] Closed 09/11/2022 10/06/2023 1 1 Specialty Diagnoses / Procedures Referred By Contac t Referred To Contact Echocardiography Diagnoses 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 Procedures ECHOCARDIOGRAM NE ECHO HEART XTHORACIC,COMPLETE W DOPPLER Maday Talbot MD [address] [facility] [address] [address] [address] [place] [address] Referral ID Status Reason Start Date Expiration Date Visits Re quested Visits Authorized [id number] Closed 01/31/2023 02/25/2024 1 1 Specialty Diagnoses / Procedures Referred By Sammyac t Referred To Contact Diagnoses 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 Procedures NUC MYOCARD PERF STRESS MIBI PHARM NE CHG MYOCARDIAL SPECT MULTIPLE STUDIES CHG MYOCARDIAL SPECT MULTIPLE STUDIES-T NE CARDIAC STRESS TST,INTERP/REPT ONLY NE CV STRS TST XERS&/OR RX CONT ECG W/O I&R Maday Talbot MD [address] [facility] 5th [address] [address] Referral ID Status Reason Start Date Expiration Date Visits Re quested Visits Authorized [id number] Closed 01/31/2023 02/25/2024 1 1 Specialty Diagnoses / Procedures Referred By Courtney t Referred To Contact Procedures ECG Escobar Reaves MD [address] [place] [address] Referral ID Status Reason Start Date Expiration Date V isits Requested Visits Authorized [id number] New Request 03/19/2023 04/12/2024 1 1 Additional Source Comments INFORMATION SOURCE (unrecogn ized section and content) DATE CREATED AUTHOR AUTHOR'S ORGANIZ ATION 05/23/2023 [facility] Reason for Visit (unrecogniz ed section and content) Specialty Diagnoses / Procedures Referred By Courtney t Referred To Contact Diagnoses Bilateral carotid artery stenosis Procedures VASC DUPLEX CAROTID BILATERAL VASC DUPLEX CAROTID BILATERAL Maday Talbot MD [address] [facility] [address]th [address] [address] Referral ID Status Reason Start Date Expiration Date V isits Requested Visits Authorized [id number] New Request 09/05/2021 09/30/2022 1 1 Reason Comments New Patient Specialty Diagnoses / Procedures Referred By Courtney t Referred To Contact Neurology Diagnoses Bilateral carotid artery stenosis Dizziness Maday Talbot MD [address] [facility] [address] [address] Referral ID Status Reason Start Date Expiration Date V isits Requested Visits Authorized [id number] New Request 09/05/2021 09/30/2022 1 1 Specialty Diagnoses / Procedures Referred By Contac t Referred To Contact Diagnoses Loss of memory Procedures MRI BRAIN WITHOUT CONTRAST NE MRI BRAIN Melody Ren MD [address] [phone] Referral ID Status Reason Start Date Expiration Date Visits Re quested Visits Authorized [id number] Closed 04/25/2022 05/20/2023 1 1 Specialty Diagnoses / Procedures Referred By Sammyac t Referred To Contact Diagnoses Peripheral vertigo involving left ear Procedures MRI INTERNAL AUDITORY CANAL WITH AND WITHOUT CONTRAST NE MRI BRAIN COMBO Melody Ren MD [address] [phone] Referral ID Status Reason Start Date Expiration Date Visits Re quested Visits Authorized [id number] Closed 06/07/2022 07/02/2023 1 1 Reason Comments Vestibular Schwanoma vestibular schwanno ma pt stated that she is a nodule behind her left ear and she gets dizzy some times Specialty Diagnoses / Procedures Referred By Sammyac t Referred To Contact Diagnoses Bilateral carotid artery stenosis Procedures VASC DUPLEX CAROTID BILATERAL Tayla Carter R, PAC [address] [place] [address] Referral ID Status Reason Start Date Expiration Date V isits Requested Visits Authorized [id number] New Request 03/13/2022 04/07/2023 1 1 Reason Comments Follow-up Reason Comments Follow-up Follow up after CTA Specialty Diagnoses / Procedures Referred By Contac t Referred To Contact Diagnoses Bilateral carotid artery stenosis Procedures CT ANGIO BRAIN/NECK NE CT ANGIO,HEAD COMBO,INCL IMAGE PROCESS NE CT ANGIO,NECK COMBO,INCL IMAGE PROCESS Tayla Carter, PAC [address] [place] [address] Referral ID Status Reason Start Date Expiration Date Visits Re quested Visits Authorized [id number] Closed 09/11/2022 10/06/2023 1 1 Specialty Diagnoses / Procedures Referred By Courtney t Referred To Contact Diagnoses Bilateral carotid artery stenosis Bilateral carotid artery stenosis [I65.23] Procedures NE PLACE CATH SUBSELECT ART,NECK PLACEMENT CATHETER SELECTIVE ARTERY INITIAL 2ND ORDER THORACIC/BRACHIOCEPHALIC Maday Talbot MD [facility] 5th Floor [address] [address] [facility] [address] [place] [address] Referral ID Status Reason Start Date Expiration Date Visits Re quested Visits Authorized [id number] 1 1 Reason Comments [facility] Reason Comments Heart Problem Needs [...] due to calcified coronary lesion Procedures ECHOCARDIOGRAM NE ECHO HEART XTHORACIC,COMPLETE W DOPPLER Maday Talbot MD [address] [facility] 5th Floor [address] [address] [address] [place] [address] Referral ID Status Reason Start Date Expiration Date Visits Re quested Visits Authorized [id number] Closed 01/31/2023 02/25/2024 1 1 Reason Comments Consult Patient here for voc al cord check. 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 Procedures NUC MYOCARD PERF STRESS MIBI PHARM NE CHG MYOCARDIAL SPECT MULTIPLE STUDIES CHG MYOCARDIAL SPECT MULTIPLE STUDIES-T NE CARDIAC STRESS TST,INTERP/REPT ONLY NE CV STRS TST XERS&/OR RX CONT ECG W/O I&R Maday Talbot MD [address] [facility] [address] [place] [address] Referral ID Status Reason Start Date Expiration Date Visits Re quested Visits Authorized [id number] Closed 01/31/2023 02/25/2024 1 1 Specialty Diagnoses / Procedures Referred By Contac t Referred To Contact Diagnoses Abnormal stress test Abnormal stress test [R94.39] Procedures NE CATH PLMT L HRT & ARTS W/NJX & ANGIO IMG S&I CORONARY ANGIOGRAM CORONARY BYPASS GRAFT ANGIOGRAM LEFT HEART CATHETERIZATION [facility] [address] [place] [address] [facility] [address] [place] [address] Referral ID Status Reason Start Date Expiration Date Visits Re quested Visits Authorized [id number] 1 1 Reason Onset Date Comments Results 03/20/2023 Reason Onset Date Comments Results 04/10/2023 Care Teams (unrecognized sec tion and content) Corporate Ethics Officer 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 Specialty Start Date End Date Noe Rodriguez MD [address] [id number] 272- PCP - Referring 1 Cardiovascular Disease 02/07/16 Naveen Osullivan MD [address] [place], [place] [address] PCP - General Family Medicine 03/22/16 Noe Rodriguez MD [address] [facility] [address] [place] [address] Referring Provider Cardiovascular Disease 12/18/15 Larisa Jean, ANNAMARIE Registered Nurse 03/05/16 Corporate Ethics Officer 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 Specialty Start Date End Date Noe Rodriguez MD [address] [address] PCP - Referring 1 Cardiovascular Disease 02/07/16 Naveen Osullivan MD [address] [place] [address] PCP - General Family Medicine 03/22/16 Noe Rodriguez MD [address] [facility] [address] [place] [address] Referring Provider Cardiovascular Disease 12/18/15 Larisa Jean, RN Registered Nurse 03/05/16 Corporate Ethics Officer 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 Specialty Start Date End Date Noe Rodriguez MD [address] [facility] [place] [address] PCP - Referring 1 Cardiovascular Disease 02/07/16 Naveen Osullivan MD [address] [place] [address] PCP - General Family Medicine 03/22/16 Noe Rodriguez MD [address] [facility] [address] [address] [place] [address] Referring Provider Cardiovascular Disease 12/18/15 Larisa Jean RN Registered Nurse 03/05/16 Corporate Ethics Officer 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 Specialty Start Date End Date Noe Rodriguez MD [address] [place] [address] PCP - Referring 1 Cardiovascular Disease 02/07/16 Naveen Osullivan MD [address] [place] [address] PCP - General Family Medicine 03/22/16 Noe Rodriguez MD [address] [facility] [address] [address] [place] [address] Referring Provider Cardiovascular Disease 12/18/15 Larisa Jean, RN Registered Nurse 03/05/16 Corporate Ethics Officer 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 Specialty Start Date End Date Noe Rodriguez MD [address] [place] [address] PCP - Referring 1 Cardiovascular Disease 02/07/16 Naveen Osullivan MD [address] [facility] [place] [address] PCP - General Family Medicine 03/22/16 Noe Rodriguez MD [address] [facility] [address] [address] [place] [address] Referring Provider Cardiovascular Disease 12/18/15 Larisa Jean, RN Registered Nurse 03/05/16 Corporate Ethics Officer 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 Specialty Start Date End Date Noe Rodriguez MD [address] [place] [address] PCP - Referring 1 Cardiovascular Disease 02/07/16 Naveen Osullivan MD [address] [place] [address] PCP - General Family Medicine 03/22/16 Noe Rodriguez MD [address] [facility] [address] [address] [place] [address] Referring Provider Cardiovascular Disease 12/18/15 Larisa Jean, RN Registered Nurse 03/05/16 Corporate Ethics Officer 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 Specialty Start Date End Date Noe Rodriguez MD [address] [place] [address] PCP - Referring 1 Cardiovascular Disease 02/07/16 Naveen Osullivan MD [address] [facility] [place] [address] PCP - General Family Medicine 03/22/16 Noe Rodriguez MD [address] [facility] [address] [address] [place] [address] Referring Provider Cardiovascular Disease 12/18/15 Larisa Jean, RN Registered Nurse 03/05/16 Corporate Ethics Officer 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 Specialty Start Date End Date Noe Rodriguez MD [address] [place] [address] PCP - Referring 1 Cardiovascular Disease 02/07/16 Naveen Osullivan MD [address] [place] [address] PCP - General Family Medicine 03/22/16 Noe Rodriguez MD [address] [facility] [address] [place] [address] Referring Provider Cardiovascular Disease 12/18/15 Larisa Jean RN Registered Nurse 03/05/16 Corporate Ethics Officer 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 Specialty Start Date End Date Noe Rodriguez MD [address] [place] [address] PCP - Referring 1 Cardiovascular Disease 02/07/16 Naveen Osullivan MD [address] [facility] [place] [address] PCP - General Family Medicine 03/22/16 Noe Rodriguez MD [address] [facility] [address] [place] [address] Referring Provider Cardiovascular Disease 12/18/15 Larisa Jean, RN Registered Nurse 03/05/16 Corporate Ethics Officer 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 Specialty Start Date End Date Noe Rodriguez MD [address] [place] [address] PCP - Referring 1 Cardiovascular Disease 02/07/16 Naveen Osullivan MD [address] [place] [address] PCP - General Family Medicine 03/22/16 Noe Rodriguez MD [address] [facility] [place] [address] Referring Provider Cardiovascular Disease 12/18/15 Larisa Jean, RN Registered Nurse 03/05/16 Corporate Ethics Officer 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 Specialty Start Date End Date Noe Rodriguez MD [address] [place] [address] PCP - Referring 1 Cardiovascular Disease 02/07/16 Naveen Osullivan MD [address] [place] [address] PCP - General Family Medicine 03/22/16 Noe Rodriguez MD [address] [facility] [address] [place] [address] Referring Provider Cardiovascular Disease 12/18/15 Larisa Jean, RN Registered Nurse 03/05/16 Corporate Ethics Officer 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 Specialty Start Date End Date Noe Rodriguez MD [address] [place] [address] PCP - Referring 1 Cardiovascular Disease 02/07/16 Naveen Osullivan MD [address] [place] [address] PCP - General Family Medicine 03/22/16 Noe Rodriguez MD [address] [facility] [place] [address] Referring Provider Cardiovascular Disease 12/18/15 Larisa Jean, RN Registered Nurse 03/05/16 Corporate Ethics Officer 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 Specialty Start Date End Date Noe Rodriguez MD [address] [place] [address] PCP - Referring 1 Cardiovascular Disease 02/07/16 Naveen Osullivan MD [address] [place] [address] PCP - General Family Medicine 03/22/16 Noe Rodriguez MD [address] [facility] [place] [address] Referring Provider Cardiovascular Disease 12/18/15 Larisa Jean RN Registered Nurse 03/05/16 Corporate Ethics Officer 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 Specialty Start Date End Date Noe Rodriguez MD [address] [place] [address] PCP - Referring 1 Cardiovascular Disease 02/07/16 Naveen Osullivan MD [address] [place] [address] PCP - General Family Medicine 03/22/16 Noe Rdoriguez MD [address] [facility] [place] [address] Referring Provider Cardiovascular Disease 12/18/15 Larisa Jean, RN Registered Nurse 03/05/16 Corporate Ethics Officer 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 Specialty Start Date End Date Noe Rodriguez MD [address] [place] [address] PCP - Referring 1 Cardiovascular Disease 02/07/16 Naveen Osullivan MD [address] [place] [address] PCP - General Family Medicine 03/22/16 Noe Rodriguez MD [address] [place] [address] Referring Provider Cardiovascular Disease 12/18/15 Larisa Jean, RN Registered Nurse 03/05/16 Corporate Ethics Officer 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 Specialty Start Date End Date Noe Rodriguez MD [address] [place] [address] PCP - Referring 1 Cardiovascular Disease 02/07/16 Naveen Osullivan MD [address] [place] [address] PCP - General Family Medicine 03/22/16 Noe Rodriguez MD [address] [facility] [place] [address] Referring Provider Cardiovascular Disease 12/18/15 Larisa Jean, RN Registered Nurse 03/05/16 03/05/23 Corporate Ethics Officer 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 Specialty Start Date End Date Noe Rodriguez MD [address] [place] [address] PCP - Referring 1 Cardiovascular Disease 02/07/16 Naveen Osullivan MD [address] [place] [address] PCP - General Family Medicine 03/22/16 Noe Rodriguez MD [address] [place] [address] Referring Provider Cardiovascular Disease 12/18/15 Corporate Ethics Officer 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 Specialty Start Date End Date Noe Rodriguez MD [address] [place] [address] PCP - Referring 1 Cardiovascular Disease 02/07/16 Naveen Osullivan MD [address] [place] [address] PCP - General Family Medicine 03/22/16 Noe Rodriguez MD [address] [facility] [place] [address] Referring Provider Cardiovascular Disease 12/18/15 Corporate Ethics Officer 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 Specialty Start Date End Date Noe Rodriguez MD [address] [place] [address] PCP - Referring 1 Cardiovascular Disease 02/07/16 Naveen Osullivan MD [address] [place] [address] PCP - General Family Medicine 03/22/16 Noe Rodriguez MD [address] [facility] [place] [address] Referring Provider Cardiovascular Disease 12/18/15 Corporate Ethics Officer 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 Specialty Start Date End Date Noe Rodriguez MD [address] [place] [address] PCP - Referring 1 Cardiovascular Disease 02/07/16 Naveen Osullivan MD [address] [place] [address] PCP - General Family Medicine 03/22/16 Noe Rodriguez MD [address] [facility] [address] [place] [address] Referring Provider Cardiovascular Disease 12/18/15 Scheduled Active [...] 0933, Intra-op/Intra-Proc 0829 (Given - Provid er: Patyt Gallegos RN) Heparin injection (CANCELED) NEEDED, Starting [...] BE BASED ON THE PRIMARY CLINICAL RECORDS. [facility]. provides no warranty or guarantee of the accuracy or completeness of information in this document.
--- OUTSIDE RECORDS SUMMARY | 2023-05-24 07:04 | XMS RPT_ITS | CCD ---
Author Name Unknown Address [address] [place] [address] Organization [facility] Care Team Providers Care Reach Lift Truck Driver Name Role Phone Noe Rodriguez MD Unavailable Noe Rodriguez MD Unavailable [phone] Larisa Jean RN Unavailable Unavailable Abran HWANG, Naveen A Primary Care Provider [phone] Noe Rodriguez MD Unavailable [phone] Noe Rodriguez MD Unavailable [phone] Naveen Osullivan MD A Primary Care Provider [phone] OSULLIVAN, NAVEEN A Primary Care Unavailable OSULLIVAN, [...] Facility (20 sources) Lanolin Drug Allergy 09-29-2008 [facility] (20 sources) nickel sulfate Drug Allergy 12-09-2008 [facility] (20 sources) *Adhesive Tape Propensity to adverse reactions 03-22-2016 [facility] Medications Current Medications Medication Drug Class(es) Dates [...] Coronary atherosclerosis; Translations: [Atherosclerotic heart disease of [place] coronary artery without angina pectoris] Onset: 5 [...] MD Work Phone: [facility] 03-19-2023 12:15-0500 Heart rate 76 /min Juan Jose Ha MD Work Phone: [facility] 03-19-2023 12:15-0500 Respiratory rate 20 /min Juan Jose Ha MD Work Phone: [facility] 03-19-2023 12:15-0500 SaO2% (BldA) [Mass fraction] 96 % Juan Jose Ha MD Work Phone: [facility] 03-19-2023 12:15-0500 Systolic blood pressure 128 mm[Hg] Juan Jose Ha MD Work Phone: [facility] 03-19-2023 06:39-0500 Body height 149.9 cm Juan Jose Ha MD Work Phone: [facility] 03-19-2023 06:39-0500 Body mass index (BMI) [Ratio] 34.91 kg/m2 Juan Jose Ha MD Work Phone: [facility] 03-19-2023 06:39-0500 Body temperature 98.2 [degF] Juan Jose Ha MD Work Phone: [facility] 03-19-2023 06:39-0500 Body weight 78.4 kg Juan Jose Ha MD Work Phone: [facility] 03-05-2023 09:00-0500 Body height 149.9 cm Tayla Zahorujko PAC Work Phone: [facility] 03-05-2023 09:00-0500 Body mass index (BMI) [Ratio] 35.14 kg/m2 Tayla Zahorujko PAC Work Phone: [facility] 03-05-2023 09:00-0500 Body weight 78.93 kg Tayla Zahorujko PAC Work Phone: [facility] 03-05-2023 09:00-0500 Diastolic blood pressure 74 mm[Hg] Tayla Zahorujko PAC Work Phone: [facility] 03-05-2023 09:00-0500 Heart rate 80 /min Tayla Zahorujko PAC Work Phone: [facility] 03-05-2023 09:00-0500 Systolic blood pressure 126 mm[Hg] Tayla Zahorujko PAC Work Phone: [facility] 02-21-2023 15:21-0500 Body height 149.9 cm Von Tobias MD Work Phone: [facility] 02-21-2023 15:21-0500 Body mass index (BMI) [Ratio] 35.14 kg/m2 Von Tobias MD Work Phone: [facility] 02-21-2023 15:21-0500 Body weight 78.93 kg Von Tobias MD Work Phone: [facility] 02-21-2023 15:21-0500 Respiratory rate 14 /min Von Tobias MD Work Phone: [facility] 02-19-2023 11:55-0500 Body height 149.9 cm Tayla Zahorujko PAC Work Phone: [facility] 02-19-2023 11:55-0500 Body mass index (BMI) [Ratio] 35.2 kg/m2 Tayla Zahorujko PAC Work Phone: [facility] 02-19-2023 11:55-0500 Body weight 79.1 kg Tayla Zahorujko PAC Work Phone: [facility] 02-19-2023 11:55-0500 Diastolic blood pressure 78 mm[Hg] Tayla Zahorujko PAC Work Phone: [facility] 02-19-2023 11:55-0500 Systolic blood pressure 146 mm[Hg] Tayla Zahorujko PAC Work Phone: [facility] 02-19-2023 10:26-0500 Body height 149.9 cm Charbel Artaega MD Work Phone: [facility] 02-19-2023 10:26-0500 Body mass index (BMI) [Ratio] 35.22 kg/m2 Charbel Arteaga MD Work Phone: [facility] 02-19-2023 10:26-0500 Body weight 79.11 kg Charbel Arteaga MD Work Phone: 5(169)823-348865 [place] [address] 02-19-2023 10:26-0500 Diastolic blood pressure 78 mm[Hg] Charbel Arteaga MD Work Phone: 7(742)192-213104 [address] 02-19-2023 10:26-0500 Heart rate 78 /min Charbel Arteaga MD Work Phone: 6(180)314-351904 [address] 02-19-2023 10:26-0500 Systolic blood pressure 146 mm[Hg] Charbel Arteaga MD Work Phone: [facility] 02-03-2023 09:31-0400 Body height 149.9 cm Maday Talbot MD Work Phone: [facility] 02-03-2023 09:31-0400 Body mass index (BMI) [Ratio] 35.39 kg/m2 Maday Talbot MD Work Phone: [facility] 02-03-2023 09:31-0400 Body weight 79.47 kg Maday Talbot MD Work Phone: [facility] 02-03-2023 09:31-0400 Diastolic blood pressure 72 mm[Hg] Maday Talbot MD Work Phone: [facility] 02-03-2023 09:31-0400 Heart rate 70 /min Maday Talbot MD Work Phone: [facility] 02-03-2023 09:31-0400 Systolic blood pressure 141 mm[Hg] Maday Talbot MD Work Phone: 0(463)490-391028 [place] [address] 01-21-2023 13:10-0400 Heart rate 67 /min Maday Talbot MD Work Phone: 9(024)883-836028 [place] [address] 01-21-2023 13:10-0400 Respiratory rate 23 /min Maday Talbot MD Work Phone: 7(870)752-718528 [place] [address] 01-21-2023 13:10-0400 SaO2% (BldA) [Mass fraction] 95 % Maday Talbot MD Work Phone: 4(534)335-724628 [place] [address] 01-21-2023 13:00-0400 Diastolic blood pressure 70 mm[Hg] Maday Talbot MD Work Phone: 1(259)070-750828 [place] [address] 01-21-2023 13:00-0400 Systolic blood pressure 151 mm[Hg] Maday Talbot MD Work Phone: 7(681)941-240228 [place] [address] 01-21-2023 08:45-0400 Body temperature 97.9 [degF] Maday Talbot MD Work Phone: 4(495)948-645428 [place] [address] 10-30-2022 08:36-0400 Body height 149.9 cm Maday Talbot MD Work Phone: 9(005)474-482128 [place] [address] 10-30-2022 08:36-0400 Body mass index (BMI) [Ratio] 36.07 kg/m2 Maday Talbot MD Work Phone: 9(279)468-737128 [place] [address] 10-30-2022 08:36-0400 Body weight 81.01 kg Maday Talbot MD Work Phone: 6(142)795-074828 [place] [address] 10-30-2022 08:36-0400 Diastolic blood pressure 80 mm[Hg] Maday Talbot MD Work Phone: 0(446)635-245028 [place] [address] 10-30-2022 08:36-0400 Heart rate 73 /min Maday Talbot MD Work Phone: 8(987)976-953528 [place] [address] 10-30-2022 08:36-0400 Respiratory rate 20 /min Maday Talbot MD Work Phone: [facility] 10-30-2022 08:36-0400 SaO2% (BldA) [Mass fraction] 97 % Maday Talbot MD Work Phone: 9(874)348-025128 [place] [address] 10-30-2022 08:36-0400 Systolic blood pressure 146 mm[Hg] Maday Talbot MD Work Phone: 3(823)345-524928 [place] [address] 10-30-2022 07:54-0400 Body mass index (BMI) [Ratio] 34.18 kg/m2 Tayla Zahorujko PAC Work Phone: 2(063)345-536528 [place] [address] 10-30-2022 07:54-0400 Body weight 79.38 kg Tayla Zahorujko PAC Work Phone: 5(618)293-619628 [place] [address] 10-30-2022 07:54-0400 Diastolic blood pressure 72 mm[Hg] Tayla Zahorujko PAC Work Phone: 2(211)567-477428 [place] [address] 10-30-2022 07:54-0400 Heart rate 63 /min Tayla Zahorujko PAC Work Phone: 5(427)480-418628 [place] [address] 10-30-2022 07:54-0400 Systolic blood pressure 158 mm[Hg] Tayla Zahorujko PAC Work Phone: 4(348)607-897228 [place] [address] 09-11-2022 12:03-0400 Body height 152.4 cm Maday Talbot MD Work Phone: 4(456)350-960028 [place] [address] 09-11-2022 12:03-0400 Body mass index (BMI) [Ratio] 34.43 kg/m2 Maday Talbot MD Work Phone: 0(112)995-611728 [place] [address] 09-11-2022 12:03-0400 Body temperature 97.9 [degF] Maday Talbot MD Work Phone: 9(549)596-647528 [place] [address] 09-11-2022 12:03-0400 Body weight 79.97 kg Maday Talbot MD Work Phone: [facility] 09-11-2022 12:03-0400 Diastolic blood pressure 92 mm[Hg] Maday Talbot MD Work Phone: [facility] 09-11-2022 12:03-0400 Heart rate 103 /min Maday Talbot MD Work Phone: [facility] 09-11-2022 12:03-0400 SaO2% (BldA) [Mass fraction] 95 % Maday Talbot MD Work Phone: [facility] 09-11-2022 12:03-0400 Systolic blood pressure 167 mm[Hg] Maday Talbot MD Work Phone: [facility] 08-20-2022 14:44-0400 Body height 152.4 cm Celio Stevenson MD Work Phone: [facility] 08-20-2022 14:44-0400 Body mass index (BMI) [Ratio] 34.18 kg/m2 Celio Stevenson MD Work Phone: [facility] 08-20-2022 14:44-0400 Body weight 79.38 kg Celio Stevenson MD Work Phone: [facility] 08-20-2022 14:44-0400 Heart rate 82 /min Celio Stevenson MD Work Phone: [facility] 08-20-2022 14:44-0400 SaO2% (BldA) [Mass fraction] 96 % Celio Stevenson MD Work Phone: [facility] 07-01-2022 17:49-0400 Diastolic blood pressure 79 mm[Hg] Melody Ren MD Work Phone: [facility] 07-01-2022 17:49-0400 Heart rate 97 /min Melody Ren MD Work Phone: [facility] 07-01-2022 17:49-0400 Systolic blood pressure 178 mm[Hg] Melody Ren MD Work Phone: 2(679)947-860229 [place] [address] 07-01-2022 17:47-0400 Body height 152.4 cm Melody Ren MD Work Phone: 6(037)751-062429 [place] [address] 06-05-2022 15:01-0500 Body height 152.4 cm Melody Ren MD Work Phone: 3(243)000-734229 [place] [address] 06-05-2022 15:01-0500 Diastolic blood pressure 79 mm[Hg] Melody Ren MD Work Phone: 8(237)225-587829 [place] [address] 06-05-2022 15:01-0500 Heart rate 86 /min Melody Ren MD Work Phone: 7(413)961-138829 [place] [address] 06-05-2022 15:01-0500 Systolic blood pressure 180 mm[Hg] Melody Ren MD Work Phone: 0(816)451-381029 [place] [address] 04-25-2022 13:12-0500 Body height 152.4 cm Melody Ren MD Work Phone: 3(520)062-381829 [place] [address] 04-25-2022 13:12-0500 Body mass index (BMI) [Ratio] 34.65 kg/m2 Melody Ren MD Work Phone: 1(503)597-556429 [place] [address] 04-25-2022 13:12-0500 Body weight 80.47 kg Melody Ren MD Work Phone: 1(505)451-508529 [place] [address] 04-25-2022 13:12-0500 Diastolic blood pressure 72 mm[Hg] Melody Ren MD Work Phone: 3(055)567-989529 [place] [address] 04-25-2022 13:12-0500 Heart rate 80 /min Melody Ren MD Work Phone: 2(685)167-169429 [place] [address] 04-25-2022 13:12-0500 Systolic blood pressure 138 mm[Hg] Melody Ren MD Work Phone: [facility] 09-05-2021 14:41-0400 Body height 152.4 cm Maday Talbot MD Work Phone: [facility] 09-05-2021 14:41-0400 Body mass index (BMI) [Ratio] 32.22 kg/m2 Maday Talbot MD Work Phone: [facility] 09-05-2021 14:41-0400 Body weight 74.84 kg Maday Talbot MD Work Phone: [facility] 09-05-2021 14:41-0400 Diastolic blood pressure 71 mm[Hg] Maday Talbot MD Work Phone: [facility] 09-05-2021 14:41-0400 Heart rate 79 /min Maday Talbot MD Work Phone: [facility] 09-05-2021 14:41-0400 SaO2% (BldA) [Mass fraction] 98 % Maday Talbot MD Work Phone: [facility] 09-05-2021 14:41-0400 Systolic blood pressure 126 mm[Hg] Maday Talbot MD Work Phone: [facility] Encounters Encounter Date Encounter Type Care Provider Facility Start: 05-28-2023 ambulatory CELIO STEVENSON [facility] y:[facility] Start: 04-15-2023 Evaluation and management of inpatient NAVEEN OSULLIVAN Facility:[facility] Start: 04-14-2023 ambulatory NAVEEN OSULLIVAN Facility:[facility] Start: 04-10-2023 Telephone encounter Larisa Brooks RN [facility] Procedures Date Procedure Procedure Detail Performing Clinician [...] Tetanus vaccination TETANUS [facility] Start: 10-31-2023 Potassium [Moles/volume] in Serum or Plasma POTASSIUM [facility] Start: 05-28-2023 End: 05-28-2023 Patient encounter procedure [facility] Start: 04-25-2023 Thyroid stimulating hormone measurement TSH [facility] Start: 04-14-2023 End: 04-14-2023 Patient encounter procedure 04/14/2023 1:30 PM EST Office Visit [facility] [address] [place] [address] Maday Talbot MD [address] [place] [address] [facility] Start: 03-24-2023 End: 03-24-2024 Basic metabolic 2000 panel - Serum or Plasma BASIC METABOLIC PANEL Lab Routine 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), bioprosthetic Permanent atrial fibrillation Essential hypertension Expected: 03/24/2023, Expires: 03/24/2024 [facility] Immunizations Immunization Date Immunization Notes Care Provider Fa cility 02-01-2022 Influenza Vaccine, Quadrivalent, Adjuvanted Melody Ren MD Work Phone: 0(446)664-096297 [place] [address] 02-01-2022 influenza virus vacc ine, unspecified formulation Maday Talbot MD Work Phone: [facility] 08-20-2021 COVID-19 vaccine, Michael Hodges, 50 mcg/0.25 mL booster Melody Ren MD Work Phone: [facility] 08-20-2021 tetanus toxoid, redu jens diphtheria toxoid, and acellular pertussis vaccine, adsorbed Melody Ren MD Work Phone: 1(742)417-478097 [place] [address] 03-02-2021 COVID-19 vaccine, Michael Hodges, 50 mcg/0.25 mL booster Melody Ren MD Work Phone: 0(203)124-804629 [place] [address] 02-19-2021 Influenza Vaccine, Quadrivalent, Adjuvanted Melody Ren MD Work Phone: 6(483)187-509929 [place] [address] 06-28-2020 hepatitis A vaccine, adult dosage Melody Ren MD Work Phone: 1(503)083-016529 [place] [address] 05-26-2020 COVID-19 vaccine, Michael Hodges, 100 mcg/0.5 mL Melody Ren MD Work Phone: 1(386)600-783129 [place] [address] 05-08-2020 COVID-19 vaccine, Michael Hodges, 100 mcg/0.5 mL Melody Ren MD Work Phone: 6(156)368-108329 [place] [address] 04-28-2020 COVID-19 vaccine, Michael Hodges, 100 mcg/0.5 mL Melody Ren MD Work Phone: 6(326)458-731529 [place] [address] 04-07-2020 COVID-19 vaccine, Michael Hodges, 100 mcg/0.5 mL Melody Ren MD Work Phone: 9(647)185-762429 [place] [address] 02-21-2020 zoster vaccine recombinant Melody Ren MD Work Phone: 9(238)446-950293 [address] 10-29-2019 hepatitis A vaccine, adult dosage Melody Ren MD Work Phone: [facility] 10-29-2019 zoster vaccine recombinant Melody Ren MD Work Phone: [facility] 01-07-2018 influenza, injectabl e, quadrivalent, contains preservative Melody Ren MD Work Phone: [facility] 01-06-2018 influenza, high dose seasonal, preservative-free Melody Ren MD Work Phone: [facility] 01-03-2017 influenza, injectabl e, quadrivalent, contains preservative Melody Ren MD Work Phone: [facility] 01-06-2016 influenza virus vacc ine, unspecified formulation Maday Talbot MD Work Phone: [facility] 01-04-2016 influenza, seasonal, injectable Melody Ren MD Work Phone: [facility] 02-05-2014 pneumococcal conjuga te vaccine, 13 valent Melody Ren MD Work Phone: [facility] 08-05-2005 pneumococcal polysaccharide vaccine, 23 valent Melody Ren MD Work Phone: [facility] Payers Date Payer Category Payer Medicare MEDICARE [employer] HMO PPO MEDICARE [employer] O PPO [id number] 2017-Present [address] [address] [place] [address] [id number] 2017 Medicare [id number] 1940 Unknown [id number] 1940 Unknown [id number] 2..[id number] 1939 Unknown [id number] 2..[id number] 1939 Unknown [id number] [id number] 1939 Unknown [id number] [id number] 1939 Unknown [id number] [id number] 1939 Unknown [id number] 2.16.840.1.727054.3.579.2.594 1939 Unknown [id number] 2.16.840.1.438005.3.579.2.594 1939 Unknown [id number] 2.16.840.1.588512.3.579.2.594 1939 Unknown [id number] 2.16.840.1.578748.3.579.2.594 1939 Unknown [id number] [id number] 1939 Unknown [id number] 2.16840.1.078070.3.579.2.594 1939 Unknown [id number] 2.16840.1.647173.3.579.2.594 1939 Unknown [id number] 2.16840.1.104334.3.579.2.594 1939 Unknown [id number] [id number] 1939 Unknown [id number] [id number] 1939 Unknown [id number] [id number] 1939 Unknown [id number] 2.16.840.1.762425.3.579.2.594 1939 Unknown [id number] [id number] 1939 Unknown [id number] [id number] 1939 Unknown [id number] [id number] Social History Date Type Detail Facility Start: 01-15-2016 End: 02-19-2023 Tobacco smoking status NHIS Ex-smoker [facility] Start: 1956 End: 04-07-2003 History of tobacco use Current smoker [facility] Start: 1956 End: 04-07-2003 History of tobacco use Cigarette Smoker [facility] Start: 01-15-2016 End: 04-14-2023 Cigarettes smoked current (pack per day) - Reported 1 [facility] Start: 01-15-2016 End: 02-19-2023 Tobacco use and exposure Smokeless tobacco non-user [facility] Start: 09-05-2021 End: 03-19-2023 Alcohol intake Current drinker of alcohol (finding) [facility] Start: 12-09-2008 History SDOH Alcohol Comment occasionally [facility] Start: 02-09-2015 End: 04-25-2022 Tobacco Comment quit 11 years ago [facility] Start: 1940 Sex Assigned At Not on file [facility] Start: 03-03-2022 End: 04-25-2022 Exposure to SARS-CoV-2 (event) Unable to assess [facility] Start: 04-25-2022 Alcohol Comment Wine with dinn er once in awhile [facility] Start: 05-26-2022 End: 06-05-2022 Exposure to SARS-CoV-2 (event) Not sure [facility] Start: 09-11-2022 End: 04-14-2023 Tobacco use panel [facility] Gender identity Identifies as fe male gender (finding) [facility] Medical Equipment Procedure Code Equipment Code Equipment Origin al Text Equipment Identifier Dates Nichole Starr 58cm - [id number] Start: 02-01-2016 Valve Tavr Evolu t 26 - [id number] Start: 01-31-2016 Clinical Notes 09-05-2021 to 04-15-2023 Telephone Encounter - Vanessa Ruggiero RN - 04/15/2023 3:02 PM ESTTelephone Encounter - Vanessa Ruggiero RN - 04/15/2023 3:02 PM ESTTelephone Encounter - Vanessa Ruggiero RN - 04/15/2023 2:27 PM EST Note Date & Type Note Facility 04-15-2023 Telephone encounter Note Faxed lab order [facility] 04-15-2023 Miscellaneous Notes Faxed lab order MALINA patent's daughter, Silvestre. Will fax lab orders to [facility]. Silvestre wants to know if patient can start cardiac rehab in [place]. After labs ordered will need faxed to [phone], [facility] outpatient lab. Images from the original note [...] Outside Labs: Received: Yesterday Charbel Arteaga MD [facility] Triage Pool Outside labs noted: K of 3.5 and BUN/Cr of 28/0.95. Please check on the patient with respect to any ongoing symptoms / concerns - especially volume related - which will help guide further care. Spoke with pt's daughter Silvestre. Reports Dot is currently not feeling well - being treated by [facility] for an URI with prednisone and antibiotic. [...] needed. She will follow up with a Upstream message when she gets home. Pt is interested in cardiac rehab. documented in this [facility] 04-15-2023 Telephone encounter Note SW cherie's daughter, Silvestre. Will fax lab orders to [facility]. Silvestre wants to know if patient can start cardiac rehab in [place]. After labs ordered will need faxed to [phone], [facility] outpatient lab. [facility] 04-15-2023 Telephone encounter Note Images from the original note were not included. Charbel Arteaga MD You21 hours ago (4:23 PM) Plan: continue the furosemide / lasix at 20 mg po bid and the K supplement at 10 mEq po BID; monitor symptoms / findings; obtain a chem 6 on with results to this office. Thank you. [facility] 04-11-2023 Telephone encounter Note SW patient's daughter Silvestre, gave Dr Arteaga's recommendations. [facility] 04-11-2023 Miscellaneous Notes SW patient's daughter Silvestre, [...] Received: Yesterday Charbel Arteaga MD [facility] Outside labs noted: K of 3.5 and BUN/Cr of 28/0.95. Please check on the patient with respect to any ongoing symptoms / concerns - especially volume related - which will help guide further care. Spoke with pt's daughter Silvestre. Reports Dot is currently not feeling well - being treated by [facility] for an URI with prednisone and antibiotic. [...] needed. She will follow up with a Upstream message when she gets home. Pt is interested in cardiac rehab. documented in this encounter [facility] 04-11-2023 Telephone encounter Note Images from the [...] to her lower extremity edema. Thank you. [facility] 04-10-2023 Telephone encounter Note Images from the original note were not included. Outside Labs: Received: Yesterday MD [facility] Triage Pool Outside labs noted: K of 3.5 and BUN/Cr of 28/0.95. Please check on the patient with respect to any ongoing symptoms / concerns - especially volume related - which will help guide further care. Spoke with pt's daughter Silvestre. Reports Dot is currently not feeling well - being treated by [facility] for an URI with prednisone and antibiotic. [...] needed. She will follow up with a Upstream message when she gets home. Pt is interested in cardiac rehab. [facility] 04-09-2023 Telephone encounter Note Received lab results from [facility]. Sent to scanning for upload into chart. Copy given to Dr. Arteaga. [facility] 04-09-2023 Miscellaneous Notes Received lab results from [facility]. Sent to scanning for upload into chart. Copy given to Dr. Arteaga. Faxed to [phone] The LVEDP is a blood pressure recording [...] Cardiac cath: Received: Today Charbel Arteaga MD [facility] Please update the patient that her cardiac cath procedure was received / reviewed. 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 She did not require additional PTCA. The recommendation is for her to continue medical therapy and follow up. Thank you. Sending mychart. documented in this encounter [facility] 03-24-2023 Telephone encounter Note Faxed to [phone] [facility] 03-24-2023 Telephone encounter Note The LVEDP is [...] they need faxed to [facility]. [facility] 03-21-2023 Telephone encounter Note Spoke with patient's daughter regarding the above results and recommendations. Patient's daughter verbalized understanding. She said there was concerns of the LVEDP. Is this something that needs addressed? She noted that the patient has been more short of breath than normal. She is currently on 20 mg lasix daily. [facility] 03-20-2023 Telephone encounter Note Images [...] and follow up. Thank you. Sending mychart. [facility] 03-19-2023 Nurse Note After Visit [...] at time of discharge. Hayley Melendez RN [facility] 03-19-2023 Miscellaneous Notes After Visit [...] Brief Cardiac Catheterization Procedure Note Kiara Martinez ([id number]) Pre Procedural Diagnosis Abnormal stress test [R94.39] [...] Swapnil Gilmore MD - Fellow Procedural Staff Ultrasonic Hand Solderer: Vandana Knox RN; Patty Gallegos RN Documenter: [...] fib. 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 You are to arrive at [facility] on the 1st floor at 6:00 AM You may use can repairer parking ($10) or park in the [facility] just past the [place] ($3). There is a walkway from the 2nd floor of the garage [facility] You are to have nothing to [...] please call NOW to notify the lab ([phone]). You may receive sedation during your procedure [...] REGARDING THE PROCEDURE CALL US AT : [phone] THANK YOU, JEYSON DE LUNA Merchandising Stock Associate Scheduling The above instructions were given to [...] documented in this encounter [facility] 03-19-2023 Surgery Postoperative evaluation and management note Preliminary Report - Brief Cardiac Catheterization Procedure Note Kiara Hilaria Martinez ([id number]) Pre Procedural Diagnosis Abnormal stress test [R94.39] [...] Swapnil Gilmore MD - Fellow Procedural Staff Ultrasonic Hand Solderer: Vandana Knox RN; Patty Gallegos RN Documenter: Toshia Hernandez RN Full report to follow Swapnil Gilmore MD March 19, 2023 9:26 AM [facility] 03-19-2023 History and physical note [...] coronary angiography. Tigre Mortensen, Fellow, Cardiovascular Medicine [facility] Work Phone: 03-19-2023 History and [...] in this encounter [facility] 03-19-2023 Nurse Note Pt arrives to room [...] fib. Hayley Melendez RN [facility] 03-06-2023 Nurse Note PREPARING FOR YOUR DEVULCANIZER OPERATOR PROCEDURE Your catheterization is scheduled on 03/19/23 at: [facility] at the [facility] located at [address] [place] [address]. You are to arrive at [facility] on the 1st floor at 6:00 AM You may use can repairer parking ($10) or park in the [facility] [employer] [facility] just past the [place] ($3). There is a walkway from the 2nd floor of the garage into the [facility]. You are to have nothing to eat [...] please call NOW to notify the lab ([phone]). You may receive sedation during your procedure [...] REGARDING THE PROCEDURE CALL US AT : [phone] THANK YOU, JEYSON DE LUNA Merchandising Stock Associate Scheduling The above instructions were given to patient verbally over the phone AND VIA MY CHART [facility] 03-06-2023 Nurse Note I called to schedule Ms. Martinez's heart cath. The number we have is her daughters. She said that her mom doesn't know anything about the cath yet. She asked that I give her a little time and call again in about an hour. [facility] 03-05-2023 History of Presen t illness Narrative Caffeine free for >24 hours. status n/a status n/a Pharmacologic nuclear stress procedure explained to patient. Risk/benefits of the procedure were reviewed and patient verbalized understanding. Medical solar designer/installer offered to patient prior to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 (Portuguese) [facility] Purpose Family History No Family [...] DUPLEX CAROTID BILATERAL Maday Talbot MD [address] [facility] 5th [address] [address] Referral ID Status Reason Start Date Expiration Date V isits Requested Visits Authorized [id number] New Request 09/05/2021 09/30/2022 1 1 Specialty Diagnoses / Procedures Referred By Contac t Referred To Contact Neurology Diagnoses Bilateral carotid artery stenosis Dizziness Maday Talbot MD [address] [facility] [address]th [address] [address] Referral ID Status Reason Start Date Expiration Date V isits Requested Visits Authorized [id number] New Request 09/05/2021 09/30/2022 1 1 Specialty Diagnoses / Procedures Referred By Contac t Referred To Contact Diagnoses Loss of memory Procedures MRI BRAIN WITHOUT CONTRAST NE MRI BRAIN Melody Ren MD [address] [place] [phone] Referral ID Status Reason Start Date Expiration Date V isits Requested Visits Authorized [id number] New Request 04/25/2022 05/20/2023 1 1 Referral ID Status Reason Start Date Expiration Date Visits Re quested Visits Authorized [id number] Closed 04/25/2022 05/20/2023 1 1 Specialty Diagnoses / Procedures Referred By Contac t Referred To Contact Diagnoses Peripheral vertigo involving left ear Procedures MRI INTERNAL AUDITORY CANAL WITH AND WITHOUT CONTRAST NE MRI BRAIN COMBO Melody Ren MD [address] [place] [phone] Referral ID Status Reason Start Date Expiration Date Visits Re quested Visits Authorized [id number] Closed 06/07/2022 07/02/2023 1 1 Specialty Diagnoses / Procedures Referred By Contac t Referred To Contact Diagnoses Vestibular schwannoma Procedures MRI INTERNAL AUDITORY CANAL WITH AND WITHOUT CONTRAST NE MRI BRAIN COMBO Celio Stevenson MD [address] [facility] [place] [address] [place] [phone] Referral ID Status Reason Start Date Expiration Date V isits Requested Visits Authorized [id number] New Request 08/20/2022 09/14/2023 1 1 Specialty Diagnoses / Procedures Referred By Contac t Referred To Contact Diagnoses Bilateral carotid artery stenosis Procedures VASC DUPLEX CAROTID BILATERAL Tayla Carter, PAC [address] [place] [address] Referral ID Status Reason Start Date Expiration Date V isits Requested Visits Authorized [id number] New Request 03/13/2022 04/07/2023 1 1 Specialty Diagnoses / Procedures Referred By Contac t Referred To Contact Diagnoses Bilateral carotid artery stenosis Procedures CT ANGIO BRAIN/NECK NE CT ANGIO,HEAD COMBO,INCL IMAGE PROCESS NE CT ANGIO,NECK COMBO,INCL IMAGE PROCESS Tayla Carter, PAC [address] [place] [address] Referral ID Status Reason Start Date Expiration Date V isits Requested Visits Authorized [id number] New Request 09/11/2022 10/06/2023 1 1 Specialty Diagnoses / Procedures Referred By Contac t Referred To Contact Diagnoses Asymptomatic bilateral carotid artery stenosis Procedures ECG Tayla Carter R, PAC [address] [place] [address] Referral ID Status Reason Start Date Expiration Date V isits Requested Visits Authorized [id number] New Request 10/30/2022 11/24/2023 1 1 Referral ID Status Reason Start Date Expiration Date Visits Re quested Visits Authorized [id number] Closed 09/11/2022 10/06/2023 1 1 Specialty Diagnoses / Procedures Referred By Contac t Referred To Contact Echocardiography Diagnoses 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 Procedures ECHOCARDIOGRAM NE ECHO HEART XTHORACIC,COMPLETE W DOPPLER Maday Talbot MD [address] [facility] [address] [address] [address] [place] [address] Referral ID Status Reason Start Date Expiration Date Visits Re quested Visits Authorized [id number] Closed 01/31/2023 02/25/2024 1 1 Specialty Diagnoses / Procedures Referred By Sammyac t Referred To Contact Diagnoses 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 Procedures NUC MYOCARD PERF STRESS MIBI PHARM NE CHG MYOCARDIAL SPECT MULTIPLE STUDIES CHG MYOCARDIAL SPECT MULTIPLE STUDIES-T NE CARDIAC STRESS TST,INTERP/REPT ONLY NE CV STRS TST XERS&/OR RX CONT ECG W/O I&R Maday Talbot MD [address] [facility] 5th [address] [address] Referral ID Status Reason Start Date Expiration Date Visits Re quested Visits Authorized [id number] Closed 01/31/2023 02/25/2024 1 1 Specialty Diagnoses / Procedures Referred By Courtney t Referred To Contact Procedures ECG Escobar Reaves MD [address] [place] [address] Referral ID Status Reason Start Date Expiration Date V isits Requested Visits Authorized [id number] New Request 03/19/2023 04/12/2024 1 1 Additional Source Comments INFORMATION SOURCE (unrecogn ized section and content) DATE CREATED AUTHOR AUTHOR'S ORGANIZ ATION 05/23/2023 [facility] Reason for Visit (unrecogniz ed section and content) Specialty Diagnoses / Procedures Referred By Courtney t Referred To Contact Diagnoses Bilateral carotid artery stenosis Procedures VASC DUPLEX CAROTID BILATERAL VASC DUPLEX CAROTID BILATERAL Maday Talbot MD [address] [facility] 5th [address] [address] Referral ID Status Reason Start Date Expiration Date V isits Requested Visits Authorized [id number] New Request 09/05/2021 09/30/2022 1 1 Reason Comments New Patient Specialty Diagnoses / Procedures Referred By Courtney t Referred To Contact Neurology Diagnoses Bilateral carotid artery stenosis Dizziness Maday Talbot MD [address] [facility] [address] 5th Floor [place] [address] [address] Referral ID Status Reason Start Date Expiration Date V isits Requested Visits Authorized [id number] New Request 09/05/2021 09/30/2022 1 1 Specialty Diagnoses / Procedures Referred By Contac t Referred To Contact Diagnoses Loss of memory Procedures MRI BRAIN WITHOUT CONTRAST NE MRI BRAIN Melody Ren MD [address] [phone] Referral ID Status Reason Start Date Expiration Date Visits Re quested Visits Authorized [id number] Closed 04/25/2022 05/20/2023 1 1 Specialty Diagnoses / Procedures Referred By Sammyac t Referred To Contact Diagnoses Peripheral vertigo involving left ear Procedures MRI INTERNAL AUDITORY CANAL WITH AND WITHOUT CONTRAST NE MRI BRAIN COMBO Melody Ren MD [address] [phone] Referral ID Status Reason Start Date Expiration Date Visits Re quested Visits Authorized [id number] Closed 06/07/2022 07/02/2023 1 1 Reason Comments Vestibular Schwanoma vestibular schwanno ma pt stated that she is a nodule behind her left ear and she gets dizzy some times Specialty Diagnoses / Procedures Referred By Sammyac t Referred To Contact Diagnoses Bilateral carotid artery stenosis Procedures VASC DUPLEX CAROTID BILATERAL Tayla Carter R, PAC [address] [place] [address] Referral ID Status Reason Start Date Expiration Date V isits Requested Visits Authorized [id number] New Request 03/13/2022 04/07/2023 1 1 Reason Comments Follow-up Reason Comments Follow-up Follow up after CTA Specialty Diagnoses / Procedures Referred By Contac t Referred To Contact Diagnoses Bilateral carotid artery stenosis Procedures CT ANGIO BRAIN/NECK NE CT ANGIO,HEAD COMBO,INCL IMAGE PROCESS NE CT ANGIO,NECK COMBO,INCL IMAGE PROCESS Tayla Carter, PAC [address] [place] [address] Referral ID Status Reason Start Date Expiration Date Visits Re quested Visits Authorized [id number] Closed 09/11/2022 10/06/2023 1 1 Specialty Diagnoses / Procedures Referred By Courtney t Referred To Contact Diagnoses Bilateral carotid artery stenosis Bilateral carotid artery stenosis [I65.23] Procedures NE PLACE CATH SUBSELECT ART,NECK PLACEMENT CATHETER SELECTIVE ARTERY INITIAL 2ND ORDER THORACIC/BRACHIOCEPHALIC Maday Talbot MD [facility] 5th Floor [place] [address] [address] [facility] [address] [place] [address] Referral ID Status Reason Start Date Expiration Date Visits Re quested Visits Authorized [id number] 1 1 Reason Comments [facility] Reason Comments Heart Problem Needs cardiac [...] XTHORACIC,COMPLETE W DOPPLER Maday Talbot MD [address] [facility] 5th Floor [place] [address] [address] [address] [place] [address] Referral ID Status Reason Start Date Expiration Date Visits Re quested Visits Authorized [id number] Closed 01/31/2023 02/25/2024 1 1 Reason Comments [...] ECG W/O I&R Maday Talbot MD [address] [facility] [address] 5th Floor [address] [place] [address] Referral ID Status Reason Start Date Expiration Date Visits Re quested Visits Authorized [id number] Closed 01/31/2023 02/25/2024 1 1 Specialty Diagnoses / Procedures Referred By Contac t Referred To Contact Diagnoses Abnormal stress test Abnormal stress test [R94.39] Procedures NE CATH PLMT L HRT & ARTS W/NJX & ANGIO IMG S&I CORONARY ANGIOGRAM CORONARY BYPASS GRAFT ANGIOGRAM LEFT HEART CATHETERIZATION [facility] [address] [place] [address] [facility] [address] [place] [address] Referral ID Status Reason Start Date Expiration Date Visits Re quested Visits Authorized [id number] 1 1 Reason Onset Date Comments Results 03/20/2023 Reason Onset Date Comments Results 04/10/2023 Care Teams (unrecognized sec tion and content) 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 Truck Driver 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 Start Date End Date Noe Rodriguez MD [address] [id number] 073- PCP - Referring 1 Cardiovascular Disease 02/07/16 Naveen Osullivan MD [address] [place], [place] [phone] PCP - General Family Medicine 03/22/16 Noe Rodriguez MD 1760 [facility] [address] [place] [address] Referring Provider Cardiovascular Disease 12/18/15 Larisa Jean, ANNAMARIE Registered Nurse 03/05/16 Reach Lift Truck Driver 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 Specialty Start Date End Date Noe Rodriguez MD [address] [address] PCP - Referring 1 Cardiovascular Disease 02/07/16 Naveen Osullivan MD [address] [place] [address] PCP - General Family Medicine 03/22/16 Noe Rodriguez MD [address] [facility] [address] [place] [address] Referring Provider Cardiovascular Disease 12/18/15 Larisa Jean, RN Registered Nurse 03/05/16 Reach Lift Truck Driver 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 Specialty Start Date End Date Noe Rodriguez MD [address] [place] [address] PCP - Referring 1 Cardiovascular Disease 02/07/16 Naveen Osullivan MD [address] [place] [address] PCP - General Family Medicine 03/22/16 Noe Rodriguez MD [address] [facility] [address] [address] [place] [address] Referring Provider Cardiovascular Disease 12/18/15 Larisa Jean RN Registered Nurse 03/05/16 Reach Lift Truck Driver 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 Specialty Start Date End Date Noe Rodriguez MD [address] [place] [address] [place] [address] PCP - Referring 1 Cardiovascular Disease 02/07/16 Naveen Osullivan MD [address] [place] [address] PCP - General Family Medicine 03/22/16 Noe Rodriguez MD [address] [facility] [address] [address] [place] [address] Referring Provider Cardiovascular Disease 12/18/15 Larisa Jean, RN Registered Nurse 03/05/16 Reach Lift Truck Driver 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 Specialty Start Date End Date Noe Rodriguez MD [address] [place] [address] PCP - Referring 1 Cardiovascular Disease 02/07/16 Naveen Osullivan MD [address] [place] [facility] [place] [address] PCP - General Family Medicine 03/22/16 Noe Rodriguez MD [address] [facility] [address] [address] [place] [address] Referring Provider Cardiovascular Disease 12/18/15 Larisa Jean, RN Registered Nurse 03/05/16 Reach Lift Truck Driver 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 Specialty Start Date End Date Noe Rodriguez MD [address] [place] [address] PCP - Referring 1 Cardiovascular Disease 02/07/16 Naveen Osullivan MD [address] [place] [address] PCP - General Family Medicine 03/22/16 Noe Rodriguez MD [address] [facility] [address] [place] [address] Referring Provider Cardiovascular Disease 12/18/15 Larisa Jean, RN Registered Nurse 03/05/16 Reach Lift Truck Driver 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 Specialty Start Date End Date Noe Rodriguez MD [address] [place] [address] PCP - Referring 1 Cardiovascular Disease 02/07/16 Naveen Osullivan MD [address] [place] [facility] [place] [address] PCP - General Family Medicine 03/22/16 Noe Rodriguez MD [address] [facility] [address] [address] [place] [address] Referring Provider Cardiovascular Disease 12/18/15 Larisa Jean, RN Registered Nurse 03/05/16 Reach Lift Truck Driver 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 Specialty Start Date End Date Noe Rodriguez MD [address] [place] [address] PCP - Referring 1 Cardiovascular Disease 02/07/16 Naveen Osullivan MD [address] [place] [address] PCP - General Family Medicine 03/22/16 Noe Rodriguez MD [address] [facility] [address] [address] [place] [address] Referring Provider Cardiovascular Disease 12/18/15 Larisa Jean RN Registered Nurse 03/05/16 Reach Lift Truck Driver 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 Specialty Start Date End Date Noe Rdoriguez MD [address] [place] [address] PCP - Referring 1 Cardiovascular Disease 02/07/16 Naveen Osullivan MD [address] [place] [facility] [place] [address] PCP - General Family Medicine 03/22/16 Noe Rodriguez MD [address] [facility] [address] [address] [place] [address] Referring Provider Cardiovascular Disease 12/18/15 Larisa Jean, RN Registered Nurse 03/05/16 Reach Lift Truck Driver 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 Specialty Start Date End Date Noe Rodriguez MD [address] [place] [address] PCP - Referring 1 Cardiovascular Disease 02/07/16 Naveen Osullivan MD [address] [place] [address] PCP - General Family Medicine 03/22/16 Noe Rodriguez MD [address] [facility] [address] [address] [place] [address] Referring Provider Cardiovascular Disease 12/18/15 Larisa Jean, RN Registered Nurse 03/05/16 Reach Lift Truck Driver 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 Specialty Start Date End Date Noe Rodriguez MD [address] [place] [address] PCP - Referring 1 Cardiovascular Disease 02/07/16 Naveen Osullivan MD [address] [place] [address] PCP - General Family Medicine 03/22/16 Noe Rodriguez MD [address] [facility] [address] [address] [place] [address] Referring Provider Cardiovascular Disease 12/18/15 Larisa Jean, RN Registered Nurse 03/05/16 Reach Lift Truck Driver 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 Specialty Start Date End Date Noe Rodriguez MD [address] [place] [address] PCP - Referring 1 Cardiovascular Disease 02/07/16 Naveen Osullivan MD [address] [place] [address] PCP - General Family Medicine 03/22/16 Noe Rodriguez MD [address] [facility] [address] [address] [place] [address] Referring Provider Cardiovascular Disease 12/18/15 Larisa Jean, RN Registered Nurse 03/05/16 Reach Lift Truck Driver 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 Specialty Start Date End Date Noe Rodriguez MD [address] [place] [address] PCP - Referring 1 Cardiovascular Disease 02/07/16 Naveen Osullivan MD [address] [place] [address] PCP - General Family Medicine 03/22/16 Noe Rodriguez MD [address] [facility] [address] [place] [address] Referring Provider Cardiovascular Disease 12/18/15 Larisa Jean RN Registered Nurse 03/05/16 Reach Lift Truck Driver 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 Specialty Start Date End Date Noe Rodriguez MD [address] [place] [address] PCP - Referring 1 Cardiovascular Disease 02/07/16 Naveen Osullivan MD [address] [place] [address] PCP - General Family Medicine 03/22/16 Noe Rodriguez MD [address] [facility] [address] [address] [place] [address] Referring Provider Cardiovascular Disease 12/18/15 Larisa Jean, RN Registered Nurse 03/05/16 Reach Lift Truck Driver 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 Specialty Start Date End Date Noe Rodriguez MD [address] [place] [address] PCP - Referring 1 Cardiovascular Disease 02/07/16 Naveen Osullivan MD [address] [place] [address] PCP - General Family Medicine 03/22/16 Noe Rodriguez MD [address] [facility] [address] [address] [place] [address] Referring Provider Cardiovascular Disease 12/18/15 Larisa Jean, RN Registered Nurse 03/05/16 Reach Lift Truck Driver 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 Specialty Start Date End Date Noe Rodriguez MD [address] [place] [address] PCP - Referring 1 Cardiovascular Disease 02/07/16 Naveen Osullivan MD [address] [place] [address] PCP - General Family Medicine 03/22/16 Noe Rodriguez MD [address] [facility] [address] [address] [place] [address] Referring Provider Cardiovascular Disease 12/18/15 Larisa Jean, RN Registered Nurse 03/05/16 03/05/23 Reach Lift Truck Driver 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 Specialty Start Date End Date Noe Rodriguez MD [address] [place] [address] PCP - Referring 1 Cardiovascular Disease 02/07/16 Naveen Osullivan MD [address] [place] [address] PCP - General Family Medicine 03/22/16 Noe Rodriguez MD [address] [place] [address] Referring Provider Cardiovascular Disease 12/18/15 Reach Lift Truck Driver 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 Specialty Start Date End Date Noe Rodriguez MD [address] [place] [address] PCP - Referring 1 Cardiovascular Disease 02/07/16 Naveen Osullivan MD [address] [place] [address] PCP - General Family Medicine 03/22/16 Noe Rodriguez MD [address] [place] [address] Referring Provider Cardiovascular Disease 12/18/15 Reach Lift Truck Driver 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 Specialty Start Date End Date Noe Rodriguez MD [address] [place] [address] PCP - Referring 1 Cardiovascular Disease 02/07/16 Naveen Osullivan MD [address] [place] [address] PCP - General Family Medicine 03/22/16 Noe Rodriguez MD [address] [place] [address] Referring Provider Cardiovascular Disease 12/18/15 Reach Lift Truck Driver 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 Specialty Start Date End Date Noe Rodriguez MD [address] [place] [address] PCP - Referring 1 Cardiovascular Disease 02/07/16 Naveen Osullivan MD [address] [place] [address] PCP - General Family Medicine 03/22/16 Noe Rodriguez MD [address] [facility] [place] [address] Referring Provider Cardiovascular Disease 12/18/15 Scheduled Active [...] BE BASED ON THE PRIMARY CLINICAL RECORDS. [facility] [email or web address] [facility]. provides no warranty or guarantee of the accuracy or completeness of information in this document.
--- NOTE | 2023-05-24 08:19 | ECHOD_ITS ---
Reason For Study: Dyspnea/SOB Procedure This was a 2D Doppler, Color Flow transthoracic echocardiogram. Exam performed portable in patient room. Left Ventricle Normal LV size. The estimated ejection fraction is 65 %. Unable to assess diastolic dysfunction. No regional wall motion abnormalities noted. Right Ventricle Normal RV size. Normal systolic function. Atria The left atrium is moderately enlarged. Normal right atrium. No doppler evidence for ASD. Mitral Valve There is moderate mitral annular calcification. There is no mitral valve stenosis. Trivial mitral valve insufficiency. Tricuspid Valve There is no tricuspid stenosis. Mild (1+) tricuspid valve insufficiency. Pulmonary artery systolic pressure is 35 mmHg. Aortic Valve There is no aortic stenosis. No aortic valve insufficiency. Stable appearing bioprosthetic aortic valve apparatus. Pulmonic Valve There is no pulmonic valvular stenosis. Trivial pulmonic valve insufficiency. Great Vessels Normal aortic root. Pericardium/Pleural No pericardial effusion. MMode/2D Measurements & Calculations LVIDd: 3.9 cm IVSd: 1.3 cm LVOT diam: 2.0 cm LVIDs: 2.4 cm LVPWd: 1.3 cm LVOT area: 3.0 cm2 RVDd: 3.4 cm FS: 38.6 % Ao root diam: 3.6 cm LAV(MOD-bp): 40.4 ml LVAd ap4: 15.8 cm2 LAV(MOD-bp) Indexed: 23.7 ml/m2 LVLd ap4: 6.2 cm LAV(MOD-sp2): 33.1 ml EDV(MOD-sp4): 34.9 ml LAV(MOD-sp4): 49.1 ml EDV(sp4-el): 34.2 ml LVAs ap4: 9.2 cm2 LVLs ap4: 5.1 cm ESV(MOD-sp4): 14.1 ml ESV(sp4-el): 14.1 ml EF(MOD-sp4): 59.7 % EF(sp4-el): 58.9 % SV(MOD-sp4): 20.9 ml SV(sp4-el): 20.2 ml LA A4 area: 17.8 cm2 LA dimension(2D): 4.6 cm RA A4 area: 12.6 cm2 Doppler Measurements & Calculations MV E max shelton: 118.0 cm/sec Lat Peak E' Shelton: 15.8 cm/sec Med Peak E' Shelton: 7.4 cm/sec E/E' lat: 7.5 E/E' med: 15.9 Ao V2 max: 226.0 cm/sec LV V1 max: 126.0 cm/sec SV(LVOT): 61.2 ml Ao max P.7 mmHg LV V1 max P.5 mmHg Ao V2 mean: 159.8 cm/sec LV V1 mean P.8 mmHg Ao mean P.3 mmHg LV V1 mean: 93.2 cm/sec Ao V2 VTI: 35.9 cm LV V1 VTI: 20.2 cm AV (velocity ratio): 0.56 JOSEPH(I,D): 1.7 cm2 JOSEPH(V,D): 1.7 cm2 PA V2 max: 96.6 cm/sec TR max shelton: 303.5 cm/sec TR max P.9 mmHg ECHO/Echo Complete Interpretation Summary The estimated ejection fraction is 65 %. The left atrium is moderately enlarged. Trivial mitral valve insufficiency. Mild (1+) tricuspid valve insufficiency. Unable to assess diastolic dysfunction. Stable appearing bioprosthetic aortic valve apparatus. Ordering Physician: Tacho Baez Referring Physician: Rupert Osullivan Performed By: Erin Levine, RDCS, RVT
--- NOTE | 2023-05-24 08:19 | MRI_ITS ---
EXAM: MR ABDOMEN WITHOUT INTRAVENOUS CONTRAST, MRCP PROTOCOL CLINICAL INDICATION: Hyperbilirubinemia with increased LFT''s TECHNIQUE: Multiplanar and multisequence MR images of the abdomen without intravenous contrast obtained with MRCP sequence. Three-dimensional post-processing reconstructions were performed. COMPARISON: CT abdomen and pelvis 05/24/2023 FINDINGS: LOWER THORAX: Normal. No pleural effusion. LIVER: Liver is enlarged without space-occupying lesion. Contour of the liver appears micronodular suggesting underlying cirrhosis. GALLBLADDER AND BILE DUCTS: Gallbladder surgically absent. No intra- or extrahepatic biliary ductal dilation. No choledochal filling defect. PANCREAS: Normal. No focal cystic mass. No pancreatic duct dilation. SPLEEN: Normal. Non-enlarged. ADRENALS: Normal. No nodules. KIDNEYS AND URETERS: Bilateral perinephric edema. Normal renal size and position. No hydronephrosis. INTRAPERITONEAL SPACE: Normal. No ascites or other fluid collection. VASCULATURE: Normal. Abdominal aorta is non-dilated. LYMPH NODES: A 3.8 x 1.6 cm lymph node noted along the hepatoduodenal ligament. Additional smaller lymph nodes noted adjacent to the head of the pancreas. MRI/MRCP Abdomen without Contrast IMPRESSION: 1. Hepatomegaly. Question liver cirrhosis. 2. Normal biliary tree. 3. Peripancreatic and hepatoduodenal ligament lymphadenopathy of uncertain etiology. Electronically Signed: Narciso Boggs MD at 14:29 EST ,
[2023-05-24 08:54] LABS: Iron 108 ug/dL (50-170); Iron Binding Capacity,Total 251 ug/dL (250-450)
[2023-05-24] MEDS: 0.9% Saline Lock 10 ML Syringe IV (10:19)
[2023-05-24] MEDS: Ipratropium/Albuterol Sulfate 3 ML AMPUL.NEB INHALATION ×2 (11:11→20:33)
[2023-05-24] MEDS: Piperacil/Tazobactam 3.375 GM in 0.9% Normal Saline (50mL MB+) 50 ML IV ×2 (13:39→21:02)
[2023-05-24] MEDS: 0.9% Normal Saline (250mL Bag) 250 ML 15 ML IV (13:41)
[2023-05-24] MEDS: Pantoprazole Sodium 40 MG in 0.9% Normal Saline (100mL MB+) 100 ML 330 MG IV (13:49)
[2023-05-24] MEDS: MethylPREDNISolone 125 MG/2 ML Vial 60 MG IV (13:54)
--- NOTE | 2023-05-24 15:30 | CASEMGMT ---
ANNAMARIE OLVERA DC Planning Assessment: Face to Face with patient for initial transition planning/care coordination assessment. ANNAMARIE OLVERA introduced self and role at [facility], pt voices understanding. Pt alert, answering questions appropriately and agreeable to participating in assessment. ? Care providers, pharmacy, and demographics verified. Admitting dx: UTI, hyperbilirubinemia, thrombocytopenia, dehydration LACE Strata: 2 PCP: Abran Specialists: Robinson (pulmonology), JOAQUIN Preferred Pharmacy: [facility] Insurance: [employer] Prescription Benefit: yes LNOK: daughter Renata Living Arrangements: Pt states she lives with her daughter and IKER in a single story home. Pt states she is independent with ADLs and family assists with IADLs. Pt states she manages her own medications. Transportation: pt drives and her daughter assists if needed DME: shower chair, CPAP from [facility], C: yes but is unable to recall the name of the provider SNF: none Pt?s goal/plan: Pt states she would like to return home but states she is unable to say at this time. States her daughter told her that if she needed to go for rehab before returning home the pt should consider this. Pt states her daughter works outside the home but her IKER works from home and so she is never alone. Plan: Possible HH. PT/OT evals pending. 6 clicks score was 24 and pt able to ambulate to the bathroom with RN. Iliana Camara, RN [facility]
--- NOTE | 2023-05-24 16:15 | EX.PCM.CON.G ---
HPI Consult Data Date of Consult: 05/24/23 HPI Narrative Reason for Consultation: Abnormal LFTs HPI Narrative: LOUIS BOWERS, is a 82 F with a past medical history of hypertension,hyperlipidemia, hypothyroidism,obstructive sleep apnea, chronic atrial fibrillation; on Eliquis, chronic left bundle branch block, history of tobacco abuse; with subsequent COPD, coronary artery disease; status post NV with CABG x 3 (~1986) with redo x 2 (2005) plus coronary artery stent (2005), history of severe nonrheumatic aortic stenosis; s/p bioprosthetic aortic valve replacement (2015), history of GI bleed (2016) , history of cholecystectomy. She [facility] ER complaining of shortness of breath and back pain with nausea and vomiting. Ms. Bowers reports her symptoms began approximately 6 weeks prior to admission with a gradual onset of progressively worsening shortness of breath and back pain. She states she was seen by her PCP multiple times in addition to pulmonology since that time and has been diagnosed with a UTI treated with antibiotics (Keflex plus Pyridium) that did not improve her symptoms. She states that earlier tonight she developed worsening nausea and vomiting after taking her antibiotics and she is not sure if she was able to keep down long enough for it to absorb. She does admit to some mild dysuria and mid back pain that is mostly in the midline. She admits to abdominal pain with nausea and bilious emesis plus dysuria and shortness of breath and persistent expiratory wheezing but denies diarrhea, fever, chills, chest pain or palpitations. In the ER she was noted to have hyperbilirubinemia with a total bilirubin of 2.3 mg/dL present on admission (direct bilirubin 1.58 mg/dL) with an elevated AST of 137, elevated ALT of 163 and alkaline phosphatase elevated at 215 (with previous LFTs done a year ago that were normal) complicated by a elevated serum creatinine of 1.48 mg/dL with a BUN of 28. Chest x-ray that showed small left pleural effusion with associated atelectasis CT scan of the abdomen and pelvis showing evidence of diverticulosis without diverticulitis [facility] Medical History (Updated 05/24/23 @ 07:[address] Tacho Baez DO) Afib Atherosclerosis of coronary artery bypass graft without angina pectoris Atherosclerosis of coronary artery of craig heart without angina pectoris Carotid artery stenosis CHF (congestive heart failure) Chronic anemia COPD with acute exacerbation Degeneration of intervertebral disc of lumbosacral region Depression Dyspnea Essential hypertension GERD (gastroesophageal reflux disease) GI bleed (~02/16/16) History of GI bleed (02/2016) History of non-ST elevation myocardial infarction (NSTEMI) (06/24/05) HLD (hyperlipidemia) Hypothyroidism Left bundle branch block Lumbar facet arthropathy Lumbosacral spondylosis Non-rheumatic aortic stenosis Obesity Old myocardial infarction ALMA (obstructive sleep apnea) Persistent atrial fibrillation Scarlet fever Severe aortic stenosis Thrombocytopenia Thyroid nodule Home Medications levothyroxine 88 mcg tablet 88 mcg PO DAILY 11/23/13 [History Last Taken 03/19/22] multivitamin-ferrous fumarate-folic acid 18 mg-400 mcg tablet 1 ea PO DAILY 02/07/17 [History Last Taken Unknown] calcium carbonate 500 mg-vitamin D3 5 mcg (200 unit) tablet (Os-Christian 500 + D3) 1 tab PO BID 11/28/17 [History Last Taken Unknown] magnesium oxide 400 mg (241.3 mg magnesium) tablet (MagOx) 400 mg PO DAILY 12/31/18 [History Last Taken Unknown] Disability Parking Placard #1 ea 05/30/20 [Rx Last Taken Unknown] aspirin 81 mg tablet,delayed release (Adult Aspirin Regimen) 81 mg PO DAILY 05/02/22 [History Last Taken Unknown] isosorbide mononitrate 20 mg tablet See Rx Instructions .Route .COMPLEX #180 tabs 06/10/22 [Rx Last Taken Unknown] rosuvastatin 20 mg tablet See Rx Instructions .Route .COMPLEX #90 tabs 10/28/22 [Rx Last Taken Unknown] tiotropium 2.5 mcg-olodaterol 2.5 mcg/actuation mist for inhalation (Stiolto Respimat) 2 inh inhalation DAILY #4 grams 10/28/22 [Rx Last Taken Unknown] apixaban 5 mg tablet (Eliquis) 5 mg PO BID #60 tabs 12/10/22 [Rx Last Taken Unknown] nitroglycerin 0.4 mg sublingual tablet See Rx Instructions .Route .COMPLEX #25 tabs 04/02/23 [Rx Last Taken Unknown] albuterol sulfate 90 mcg/actuation aerosol inhaler (Ventolin HFA) 2 puff inhalation Q4H PRN shortness of breath or wheezing #18 grams 01/02/24 [Rx Last Taken Unknown] losartan 50 mg tablet 50 mg PO DAILY #90 tabs 04/08/23 [Rx Last Taken Unknown] pantoprazole 40 mg tablet,delayed release 40 mg PO DAILY #90 tabs 04/08/23 [Rx Last Taken Unknown] albuterol sulfate 2.5 mg/3 mL (0.083 %) solution for nebulization 2.5 mg (3 mL) inhalation Q4H PRN Sob &/Or Wheezing #180 mL 05/08/23 [Rx Last Taken Unknown] furosemide 20 mg tablet 20 mg PO BID Swelling 05/08/23 [History Last Taken Unknown] potassium chloride 10 mEq tablet,extended release 10 meq PO BID When you take Lasix for swelling 05/08/23 [History Last Taken Unknown] fluticasone furoate 200 mcg/actuation blister powder for inhalation (Arnuity Ellipta) 1 inh inhalation QDAY #30 ea 05/12/23 [Rx Last Taken Unknown] Allergy/AdvReac Type Severity Reaction Status Date / Time adhesive AdvReac Rash Verified 05/20/23 12:46 nickel AdvReac Rash Verified 05/20/23 12:46 wool AdvReac Rash Verified 05/20/23 12:46 Family History Mother CAD (coronary artery disease) Hypertension Alzheimer disease Daughter CAD (coronary artery disease) Myocardial infarction Sister Breast cancer Myocardial infarction Brother Myocardial infarction Father CVA (cerebral vascular accident) Heart disease Hypertension Aneurysm and dissection of heart Surgical History H/O aortic valve replacement (01/31/16) History of aortic valve replacement with bioprosthetic valve (~01/31/16) History of cardiac catheterization (~2015) History of cataract extraction (~2008) History of colonoscopy (~2007) History of colonoscopy (~2015) History of electrophysiologic study (02/02/16) History of hysterectomy History of inguinal herniorrhaphy History of lumpectomy of left breast History of partial thyroidectomy (~2008) History of squamous cell carcinoma excision Hx of cholecystectomy Previous back surgery S/P CABG x 2 (10/22/05) S/P CABG x 3 (~1986) Status post Mohs surgery for basal cell carcinoma (~2007) Stented coronary artery (~06/24/05) Social History Smoking Status: Former smoker quit date: 04/07/02 pack-years: 35 second hand exposure: No alcohol intake: never substance use type: does not use caffeine: Yes Type: coffee Number of servings: 2 ROS ROS Narrative Review of systems: General: Patient denies fever or chills HENT: Denies headache, denies stuffy nose, denies sore throat EYES: Denies changes in vision or discharge from eyes Resp: Patient admits to shortness of breath made worse with exertion and nonproductive cough Cardiac: Denies chest pain or palpitations GI: Patient admits to generalized abdominal pain, nausea and bilious emesis. She denies diarrhea : Patient admits to dysuria Extremity: Denies swelling Musculoskeletal: Patient admits to back pain but denies pain in her extremities. Neuro: Denies any numbness/tingling, headache or focal neurologic weakness Heme: Denies any bleeding or bruising Skin: Denies rashes Psychiatric: No complaints voiced related to uncontrolled depression or anxiety Endocrine: No polyuria, polydipsia or polyphagia Allergic: Patient denies lip swelling, tongue swelling or urticaria. The rest of the 14 point ROS was negative except for positives in HPI. Physical Exam Const alert, oriented x3, no apparent distress and average body habitus General Appearance: cooperative HEENT normocephalic, head/scalp atraumatic and hearing grossly normal bilaterally HEENT Narrative: Mucous membranes appear dry. Eyes PERRL, EOMs intact bilaterally and conjunctivae normal Neck no lymphadenopathy and supple Resp normal respiratory effort, no retractions, no use of accessory muscles and clear to auscultation bilaterally Cardio regular rate and regular rhythm Cardio Narrative: Tachycardia noted in the ~120 bpm range. GI normal to inspection, nondistended, normoactive bowel sounds GI Narrative: Left upper quadrant tender to palpation. No guarding or rebound was noted. Extremity normal to inspection, full ROM and no clubbing, cyanosis or edema Skin Skin Narrative: Patient has no evidence of rash or obvious jaundice at this time. Neuro oriented x3, CN's II-XII intact bilaterally, moves all extremities and no focal motor deficits Sensorium / Orientation: awake, alert, oriented to person, oriented to place and oriented to time Speech: speech normal Motor Exam: strength 5/5 throughout Psych affect normal Lab / Micro Data 05/24/23 01:22 05/24/23 01:22 Labs: Laboratory Results - last 24 hr 05/24/23 01:22: WBC 8.1, RBC 4.71, Hgb 14.2, Hct 43.4, MCV 92.1, MCH 30.1, MCHC 32.7, RDW Std Deviation 53.7 H, RDW Coeff of Ryan 16.0 H, Plt Count 69 L, MPV TNP, Immature Gran % (Auto) 1.000 H, Neut % (Auto) 58.7, Lymph % (Auto) 17.2 L, Cooper % (Auto) 20.1 H, Eos % (Auto) 2.0, Baso % (Auto) 1.0, Absolute Neuts (auto) 4.7, Absolute Lymphs (auto) 1.39, Nucleated RBC % 0.5, Sodium 136, Potassium 3.9, Chloride 104, Carbon Dioxide 23.0, Anion Gap 9, BUN 28 H, Creatinine 1.48 H, Estim Creat Clear Calc 26.13, Est GFR (MDRD) Af Amer 43 L, Est GFR (MDRD) Non-Af 36 L, BUN/Creatinine Ratio 18.9, Glucose 141 H, Calcium 9.5, Iron 108, TIBC 251, Iron Saturation 43.0, Total Bilirubin 2.30 H, Direct Bilirubin 1.58 H, AST 137 H, ALT 163 H, Alkaline Phosphatase 215 H, Total Protein 6.9, Albumin 2.9 L, Globulin 4.0 05/24/23 01:30: Lactic Acid 1.5 05/24/23 05:20: Urine Color Sheila, Urine Clarity Cloudy, Urine pH 5.0, Ur Specific [place] 1.025, Urine Protein 30 H, Urine Glucose (UA) Normal, Urine Ketones 5 H, Urine Occult Blood 25 H, Urine Nitrite Positive H, Urine Bilirubin 6 H, Urine Urobilinogen 8 H, Ur Leukocyte Esterase 500 H, Urine RBC 10-25 SEEN, Urine WBC >100 SEEN, Ur Squamous Epith Cells 5-10 SEEN, Ur Renal Epithelial Cell 10-25 SEEN, Urine Bacteria 3+, Hyaline Casts 0-5 SEEN, Fine Granular Casts 0 SEEN, Coarse Granular Casts 0 SEEN, Urine Mucus 0 SEEN 05/24/23 05:32: PT 18.5 H, INR 1.5, APTT 36.9 H Imaging Radiology Impression Abdomen/Pelvis CT 05/24/23 01:23 IMPRESSION: undefined Chest X-Ray 05/24/23 02:00 IMPRESSION: Small left pleural effusion with associated atelectasis. Superimposed mild infection or aspiration not excluded. Electronically Signed: Lázaro Can MD at 2:50 EST , MRCP 05/24/23 08:19 IMPRESSION: 1. Hepatomegaly. Question liver cirrhosis. 2. Normal biliary tree. 3. Peripancreatic and hepatoduodenal ligament lymphadenopathy of uncertain etiology. Electronically Signed: Narciso Boggs MD at 14:29 EST , Echocardiogram 05/24/23 08:19 Interpretation Summary The estimated ejection fraction is 65 %. The left atrium is moderately enlarged. Trivial mitral valve insufficiency. Mild (1+) tricuspid valve insufficiency. Unable to assess diastolic dysfunction. Stable appearing bioprosthetic aortic valve apparatus. Ordering Physician: Tacho Baez Referring Physician: Rupert Osullivan Performed By: Erin Levine, EAN, RVT Assessment & Plan Assessment/Plan (1) Thrombocytopenia: (2) COPD with acute exacerbation: (3) Transaminasemia: (4) Hyperbilirubinemia: PLAN: Plan 82-year-old with jaundice and cholestatic hepatitis. 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 There were no space-occupying lesions in the liver. 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 It is not known if she has been ever checked for hepatitis C. Risk factors would be previous blood transfusions. She has no other autoimmune disease which would make me think she has autoimmune hepatitis. 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 She is not showing any signs of encephalopathy, ascites or GI bleeding at this time as a complication of cirrhosis. She should be checked for autoimmune hepatitis, hemochromatosis, amyloidosis, sarcoidosis, chronic viral hepatitis. She may need an upper endoscopy because of nausea vomiting if she cannot tolerate a diet after IV fluid administration. I do not think she needs an ERCP at this time due to no ductal abnormalities that were seen and there was no signs and symptoms of primary sclerosing cholangitis on imaging. She may need a liver biopsy in the future but that would only be indicated if she was going to go on for her therapy as it would not prolong her life. Charges/Coding Visit Charges Inpatient E&M: 69567 Init Hosp L3
--- NOTE | 2023-05-24 16:51 | PCM.HOSP.N ---
Hospitalist Note Patient was seen and examined today, she remains on room air. MRCP revealed a normal biliary tree, there is a question of liver cirrhosis, there was. Pancreatic and hepatic duodenal ligament lymphadenopathy of uncertain etiology. Patient will remain on IV antibiotics at this time, labs will be repeated tomorrow.
[2023-05-24] MEDS: APIXABAN 5 MG TABLET PO (21:02)
[2023-05-25] VITALS (7 sets, daily range): BP systolic 109–126; BP diastolic 63–75; PULSE 86–104; RESP 16–20; TEMP 36.3–36.7; O2SAT 97–98; BMI 33.8
[2023-05-25] MEDS: 0.9% Normal Saline (1000mL) 1,000 ML 150 ML IV ×2 (04:45→11:25)
[2023-05-25] MEDS: Piperacil/Tazobactam 3.375 GM in 0.9% Normal Saline (50mL MB+) 50 ML IV ×2 (05:17→14:39)
[2023-05-25] MEDS: Levothyroxine 88 MCG Tablet PO (05:18)
[2023-05-25 06:24] LABS: Absolute Neutrophil Count 3.8 X10^3/uL (2.0-7.7); Basophil# 0.02 X10^3/uL; Basophil% 0.3 % (0-1); Eosinophil# 0.05 X10^3/uL; Eosinophils% 0.8 % (0-5); Hematocrit 38.7 % (37-47); Hemoglobin 12.6 g/dL (12.0-15.0); Lymphocyte % 16.3 % (19-41); Mean Corp Hgb Conc 32.6 g/dL (32-36); Mean Corpuscular Hgb 30.8 pg (27.0-32.0); Mean Corpuscular Volume 94.6 fL (81-99); Monocyte# 1.21 X10^3/uL; Monocyte% 19.7 % (0-10); NRBC Flagged by Analyzer 0.3 % (0-5); Neutrophil # 3.79 X10^3/uL (2.7-7.7); Neutrophil % 61.8 % (47-70); POSITIVE COUNT YES; Platelet Count 71 K/mm3 (150-450); RBC Distribution Width CV 16.3 % (11.6-14.6); RBC Distribution Width SD 55.8 fl (35.1-43.9); Red Blood Count 4.09 M/mm3 (4.2-5.4); White Blood Count 6.1 K/mm3 (4.4-11.0)
[2023-05-25 06:52] LABS: ALB/GLOB Ratio 0.7 RATIO (0.9-2.4); AST(SGOT) 96 U/L (15-37); Alanine Aminotransfer ALT/SGPT 112 U/L (13-56); Albumin, Serum 2.4 g/dL (3.2-5.0); Alkaline Phosphatase 185 U/L (45-117); Anion Gap 5 (5-15); BUN 25 mg/dL (7-18); BUN/Creat Ratio 23.1 RATIO (10-20); Calcium,Total 8.1 mg/dL (8.5-10.1); Chloride 113 mmol/L (98-107); Creatinine, Serum 1.08 mg/dL (0.55-1.02); EST Glomerular Filtration Rate 51 mL/min (>60); Est Glom Filt Rate - Afr Amer 62 mL/min (>60); Estimated Creatinine Clearance 35.98 ml/min; Globulin 3.6 g/dL (2.2-4.2); Glucose 107 mg/dL (74-106); Potassium 3.7 mmol/L (3.5-5.1); Sodium Level 140 mmol/L (136-145); Thyroid Stim Hormone (TSH) 0.59 uIU/mL (0.358-3.74)
[2023-05-25] MEDS: Ipratropium/Albuterol Sulfate 3 ML AMPUL.NEB INHALATION ×3 (07:13→19:44)
[2023-05-25] MEDS: Multivitamins,Ther W-Minerals Tablet 1 TABLET PO (08:32)
[2023-05-25] MEDS: Magnesium Chloride 64 MG Delay Rel.Tablet 128 MG PO (08:32)
[2023-05-25] MEDS: APIXABAN 5 MG TABLET PO ×2 (08:32→20:54)
[2023-05-25] MEDS: MethylPREDNISolone 125 MG/2 ML Vial 60 MG IV (10:04)
[2023-05-25] MEDS: Pantoprazole Sodium 40 MG in 0.9% Normal Saline (100mL MB+) 100 ML 330 MG IV (10:05)
[2023-05-25] MEDS: 0.9% Saline Lock 10 ML Syringe IV (10:08)
[2023-05-25 11:07] LABS: HEPATITIS B SURFACE AG Negative (Negative); Hep C Antibodies Non Reactive (Non Reactive); Hepatitis A IgM Antibody Negative (Negative); Hepatitis B Core AB IgM Negative (Negative)
--- NOTE | 2023-05-25 16:25 | PCM.PN.HOSP ---
Reason for Visit Reason for Visit: Diagnoses Thrombocytopenia, unspecified (05/24/23) Other disorders of bilirubin metabolism (05/24/23) Chronic obstructive pulmonary disease with (acute) exacerbation (05/24/23) Chronic obstructive pulmonary disease, unspecified (05/24/23) Acute kidney failure, unspecified (05/24/23) Acute cystitis without hematuria (05/24/23) Other forms of dyspnea (05/24/23) Elevation of levels of liver transaminase levels (05/24/23) Other specified abnormal findings of blood chemistry (05/24/23) Adverse effect of unspecified drugs, medicaments and biological substances, initial encounter (05/24/23) Subjective Subjective Patient was seen and examined today, she remains on 2 L of oxygen via nasal cannula, her daughter is in the room at the time my examination today and states that she feels the patient is weak and will need to go to an extended care facility for short-term rehab services, patient is okay with this idea if it is necessary. Objective Data Objective Data Vital Signs: Vital Signs Temp Pulse Resp BP Pulse Ox O2 Del Method O2 Flow Rate 97.5 F L 87 16 109/63 97 Nasal Cannula 2 05/25/23 14:50 05/25/23 14:50 05/25/23 14:50 05/25/23 14:50 05/25/23 14:50 05/25/23 14:50 05/25/23 14:50 Oxygen Flow Rate (L/min) 2 Oxygen Delivery Method Nasal Cannula Weight: 76.1 kg Body Mass Index (BMI) 33.8 Intake & Output: Intake and Output for Last 24 Hours 05/23/23 05/24/23 05/25/23 23:59 23:59 23:59 Intake Total 2610 / 2610 2590 / 2590 Output Total 600 / 600 550 / 550 Balance 2009 Lab / Micro Data 05/25/23 05:54 05/25/23 05:54 Labs: Laboratory Results - last 24 hr 05/24/23 05:20: Urine Color Sheila, Urine Clarity Cloudy, Urine pH 5.0, Ur Specific [place] 1.025, Urine Protein 30 H, Urine Glucose (UA) Normal, Urine Ketones 5 H, Urine Occult Blood 25 H, Urine Nitrite Positive H, Urine Bilirubin 6 H, Urine Urobilinogen 8 H, Ur Leukocyte Esterase 500 H, Urine RBC 10-25 SEEN, Urine WBC >100 SEEN, Ur Squamous Epith Cells 5-10 SEEN, Ur Renal Epithelial Cell 10-25 SEEN, Urine Bacteria 3+, Hyaline Casts 0-5 SEEN, Fine Granular Casts 0 SEEN, Coarse Granular Casts 0 SEEN, Urine Mucus 0 SEEN 05/24/23 05:32: Hepatitis A IgM Ab Negative, Hep Bs Antigen Negative, Hep B Core IgM Ab Negative, Hepatitis C Ab (EIA) Non Reactive, Hep C Ab Comment Comment 05/25/23 05:54: WBC 6.1, RBC 4.09 L, Hgb 12.6, Hct 38.7, MCV 94.6, MCH 30.8, MCHC 32.6, RDW Std Deviation 55.8 H, RDW Coeff of Ryan 16.3 H, Plt Count 71 L, MPV TNP, Immature Gran % (Auto) 1.100 H, Neut % (Auto) 61.8, Lymph % (Auto) 16.3 L, [place] % (Auto) 19.7 H, Eos % (Auto) 0.8, Baso % (Auto) 0.3, Absolute Neuts (auto) 3.8, Absolute Lymphs (auto) 1.00, Nucleated RBC % 0.3, Sodium 140, Potassium 3.7, Chloride 113 H, Carbon Dioxide 22.0, Anion Gap 5, BUN 25 H, Creatinine 1.08 H, Estim Creat Clear Calc 35.98, Est GFR (MDRD) Af Amer 62, Est GFR (MDRD) Non-Af 51 L, BUN/Creatinine Ratio 23.1 H, Glucose 107 H, Calcium 8.1 L, Phosphorus 2.0 L, Magnesium 2.0, Total Bilirubin 1.30 H, AST 96 H, ALT 112 H, Alkaline Phosphatase 185 H, Total Protein 6.0 L, Albumin 2.4 L, Globulin 3.6, Albumin/Globulin Ratio 0.7 L, TSH 0.59 Micro: Microbiology 05/24/23 05:20 Urine, Clean Catch Urine Culture - Preliminary Gram negative faby Physical Exam Const alert, oriented x3, no apparent distress and healthy appearing General Appearance: cooperative, well kempt and well developed Orientation / Consciousness: awake, oriented to person, oriented to place and oriented to time HEENT normocephalic, head/scalp atraumatic and moist oral mucous membranes Eyes PERRL, EOMs intact bilaterally and conjunctivae normal Neck supple, no JVD, thyroid normal and no carotid bruits General: trachea midline Resp normal respiratory effort, no retractions, no use of accessory muscles and clear to auscultation bilaterally Auscultation: Negative for rales, rhonchi or wheezes Cardio S1 normal heart sound, S2 normal heart sound, no murmurs, no rub and no gallops Cardio Narrative: Heart rate and rhythm is irregular GI normal to inspection, nondistended, normoactive bowel sounds, soft to palpation, non-tender and non-distended Extremity no clubbing, cyanosis or edema Skin no rashes or lesions noted General Skin Exam: no breakdown Neuro oriented x3, CN's II-XII intact bilaterally, moves all extremities, no focal motor deficits and no sensory deficits noted Sensorium / Orientation: awake and alert Speech: speech normal Psych affect normal Assessment & Plan Assessment/Plan (1) Acute cystitis without hematuria: PLAN: Plan 1. Acute cystitis-patient will remain on her current antibiotic coverage, she had E. coli in the urine on a urine culture that was collected on 05/23/2023, it is susceptible to a wide range of antibiotics, I will change the patient over to oral coverage for her cystitis. #2 generalized debility-PT and OT are working with the patient, she will more than likely need temporary placement in a long term facility #3 elevated liver enzymes-etiology unclear but possibly due to underlying cirrhosis-liver profile will be repeated tomorrow, gastroenterology does not want to do any further investigations at this time #4 elevated creatinine-improved at this time, I do not feel the patient had acute kidney injury #5 coronary artery disease-patient stable at this time #6 chronic [id number] is on Eliquis Total clinical time spent by myself addressing the patient's medical issues, reviewing all of her data, and collaborating with the patient's care team: 35 minutes Charges/Coding Visit Charges Inpatient E&M: 66838 Subs Hosp L2
[2023-05-25] MEDS: Cephalexin 500 MG Capsule PO (20:54)
[2023-05-26] VITALS (9 sets, daily range): BP systolic 125–142; BP diastolic 73–93; PULSE 85–109; RESP 18–20; TEMP 36.1–36.8; O2SAT 93–98; BMI 35.6
[2023-05-26] MEDS: Ipratropium/Albuterol Sulfate 3 ML AMPUL.NEB INHALATION ×4 (03:30→19:04)
[2023-05-26] MEDS: Cephalexin 500 MG Capsule PO ×2 (04:58→19:31)
[2023-05-26] MEDS: 0.9% Normal Saline (1000mL) 1,000 ML 75 ML IV (04:58)
[2023-05-26] MEDS: Levothyroxine 88 MCG Tablet PO (04:58)
[2023-05-26 06:35] LABS: Absolute Lymphocyte Count 1.16 X10^3/uL (0.83-4.51); Absolute Neutrophil Count 3.7 X10^3/uL (2.0-7.7); Basophil# 0.06 X10^3/uL; Basophil% 0.9 % (0-1); Eosinophil# 0.11 X10^3/uL; Eosinophils% 1.7 % (0-5); Hematocrit 41.2 % (37-47); Hemoglobin 13.2 g/dL (12.0-15.0); Lymphocyte # 1.16 X10^3/ul (0.83-4.51); Lymphocyte % 17.8 % (19-41); Mean Corpuscular Hgb 30.5 pg (27.0-32.0); Mean Corpuscular Volume 95.2 fL (81-99); Monocyte# 1.34 X10^3/uL; Monocyte% 20.5 % (0-10); NRBC Flagged by Analyzer 0.6 % (0-5); Neutrophil # 3.74 X10^3/uL (2.7-7.7); Neutrophil % 57.3 % (47-70); POSITIVE COUNT YES; Platelet Count 65 K/mm3 (150-450); RBC Distribution Width CV 16.5 % (11.6-14.6); RBC Distribution Width SD 57.1 fl (35.1-43.9); Red Blood Count 4.33 M/mm3 (4.2-5.4); White Blood Count 6.5 K/mm3 (4.4-11.0)
[2023-05-26 07:05] LABS: ALB/GLOB Ratio 0.7 RATIO (0.9-2.4); AST(SGOT) 95 U/L (15-37); Alanine Aminotransfer ALT/SGPT 113 U/L (13-56); Albumin, Serum 2.6 g/dL (3.2-5.0); Alkaline Phosphatase 205 U/L (45-117); Anion Gap 5 (5-15); BUN 25 mg/dL (7-18); BUN/Creat Ratio 25.6 RATIO (10-20); Calcium,Total 8.6 mg/dL (8.5-10.1); Chloride 112 mmol/L (98-107); Creatinine, Serum 0.98 mg/dL (0.55-1.02); EST Glomerular Filtration Rate 58 mL/min (>60); Est Glom Filt Rate - Afr Amer 70 mL/min (>60); Estimated Creatinine Clearance 40.69 ml/min; Globulin 3.8 g/dL (2.2-4.2); Glucose 114 mg/dL (74-106); Potassium 3.4 mmol/L (3.5-5.1); Protein, Total 6.4 g/dL (6.4-8.2); Sodium Level 140 mmol/L (136-145)
--- NOTE | 2023-05-26 08:40 | EKG12_ITS ---
Test Reason : CP Blood Pressure : / mmHG Vent. Rate : 106 BPM Atrial Rate : 000 BPM P-R Int : 000 ms QRS Dur : 096 ms QT Int : 336 ms P-R-T Axes : 000 045 -49 degrees QTc Int : 446 ms Atrial fibrillation with rapid ventricular response Low voltage QRS Possible Anterolateral infarct , age undetermined Abnormal ECG Confirmed by NHUNG HWANG, ERVIN ([id number]), field map editor JOSEPH PARKS ([id number]) on 05/27/2023 6:27:02 AM Referred By: Confirmed By:ERVIN HOOKER MD
[2023-05-26] MEDS: MethylPREDNISolone 125 MG/2 ML Vial 60 MG IV (08:54)
[2023-05-26] MEDS: APIXABAN 5 MG TABLET PO ×2 (08:54→19:30)
[2023-05-26] MEDS: Multivitamins,Ther W-Minerals Tablet 1 TABLET PO (08:54)
[2023-05-26 10:06] LABS: Troponin-I HS 122 pg/mL (3.0-54.0)
[2023-05-26] MEDS: Potassium Chloride Oral Tablet 20 MEQ 40 MEQ PO (10:31)
[2023-05-26] MEDS: Pantoprazole Sodium 40 MG Tablet PO (10:32)
[2023-05-26] MEDS: Magnesium Chloride 64 MG Delay Rel.Tablet 128 MG PO (10:32)
[2023-05-26 12:02] LABS: Troponin-I HS 124 pg/mL (3.0-54.0)
--- NOTE | 2023-05-26 13:59 | PCM.PROGNOTE ---
Objective Data Objective Data Vital Signs: Vital Signs Temp Pulse Resp BP Pulse Ox O2 Del Method O2 Flow Rate 97 F L 85 18 138/79 H 98 Nasal Cannula 2 05/26/23 08:41 05/26/23 13:20 05/26/23 13:20 05/26/23 08:41 05/26/23 08:41 05/26/23 08:44 05/26/23 08:44 Oxygen Flow Rate (L/min) 2 Oxygen Delivery Method Nasal Cannula Weight: 176 lb 2.389 oz Body Mass Index (BMI) 35.6 Intake & Output: Intake and Output for Last 24 Hours 05/24/23 05/25/23 05/26/23 23:59 23:59 23:59 Intake Total 2610 / 2610 3000 / 3000 1750 / 1750 Output Total 600 / 600 550 / 550 Balance 2009 2450 / 2450 1750 / 1750 Lab / Micro Data 05/26/23 06:21 05/26/23 06:21 Labs: Laboratory Results - last 24 hr 05/26/23 06:21: WBC 6.5, RBC 4.33, Hgb 13.2, Hct 41.2, MCV 95.2, MCH 30.5, MCHC 32.0, RDW Std Deviation 57.1 H, RDW Coeff of Ryan 16.5 H, Plt Count 65 L, MPV 14.0 H, Immature Gran % (Auto) 1.800 H, Neut % (Auto) 57.3, Lymph % (Auto) 17.8 L, [place] % (Auto) 20.5 H, Eos % (Auto) 1.7, Baso % (Auto) 0.9, Absolute Neuts (auto) 3.7, Absolute Lymphs (auto) 1.16, Nucleated RBC % 0.6, Sodium 140, Potassium 3.4 L, Chloride 112 H, Carbon Dioxide 23.0, Anion Gap 5, BUN 25 H, Creatinine 0.98, Estim Creat Clear Calc 40.69, Est GFR (MDRD) Af Amer 70, Est GFR (MDRD) Non-Af 58 L, BUN/Creatinine Ratio 25.6 H, Glucose 114 H, Calcium 8.6, Total Bilirubin 1.20 H, AST 95 H, ALT 113 H, Alkaline Phosphatase 205 H, Total Protein 6.4, Albumin 2.6 L, Globulin 3.8, Albumin/Globulin Ratio 0.7 L 05/26/23 09:22: Troponin I High Sens 122 H* 05/26/23 11:10: Troponin I High Sens 124 H* Micro: Microbiology 05/24/23 02:15 Blood Culture (Wb) - Anticubital Left Blood Culture - Preliminary No growth in 48 hours. 05/24/23 01:30 Blood Culture (Wb) - Anticubital Left Blood Culture - Preliminary No growth in 48 hours. 05/24/23 05:20 Urine, Clean Catch Urine Culture - Final Gram negative faby
--- NOTE | 2023-05-26 14:09 | PN_ITS ---
Subjective Subjective Patient seen and examined. She complained of some chest pain today. She denied any nausea, vomiting fever or chills. Review of systems is otherwise negative. Objective Data Objective Data Vital Signs: Vital Signs Temp Pulse Resp BP Pulse Ox O2 Del Method O2 Flow Rate 97 F L 85 18 138/79 H 98 Nasal Cannula 2 05/26/23 08:41 05/26/23 13:20 05/26/23 13:20 05/26/23 08:41 05/26/23 08:41 05/26/23 08:44 05/26/23 08:44 Oxygen Flow Rate (L/min) 2 Oxygen Delivery Method Nasal Cannula Weight: 176 lb 2.389 oz Body Mass Index (BMI) 35.6 Intake & Output: Intake and Output for Last 24 Hours 05/24/23 05/25/23 05/26/23 23:59 23:59 23:59 Intake Total 2610 / 2610 3000 / 3000 1750 / 1750 Output Total 600 / 600 550 / 550 Balance 2009 2450 / 2450 1750 / 1750 Lab / Micro Data 05/26/23 06:21 05/26/23 06:21 Labs: Laboratory Results - last 24 hr 05/26/23 06:21: WBC 6.5, RBC 4.33, Hgb 13.2, Hct 41.2, MCV 95.2, MCH 30.5, MCHC 32.0, RDW Std Deviation 57.1 H, RDW Coeff of Ryan 16.5 H, Plt Count 65 L, MPV 14.0 H, Immature Gran % (Auto) 1.800 H, Neut % (Auto) 57.3, Lymph % (Auto) 17.8 L, [place] % (Auto) 20.5 H, Eos % (Auto) 1.7, Baso % (Auto) 0.9, Absolute Neuts ( auto) 3.7, Absolute Lymphs (auto) 1.16, Nucleated RBC % 0.6, Sodium 140, Potassium 3.4 L, Chloride 112 H, Carbon Dioxide 23.0, Anion Gap 5, BUN 25 H, Creatinine 0.98, Estim Creat Clear Calc 40.69, Est GFR (MDRD) Af Amer 70, Est GFR (MDRD) Non-Af 58 L, BUN/Creatinine Ratio 25.6 H, Glucose 114 H, Calcium 8.6, Total Bilirubin 1.20 H, AST 95 H, ALT 113 H, Alkaline Phosphatase 205 H, Total Protein 6.4, Albumin 2.6 L, Globulin 3.8, Albumin/Globulin Ratio 0.7 L 05/26/23 09:22: Troponin I High Sens 122 H* 05/26/23 11:10: Troponin I High Sens 124 H* Micro: Microbiology 05/24/23 02:15 Blood Culture (Wb) - Anticubital Left Blood Culture - Preliminary No growth in 48 hours. 05/24/23 01:30 Blood Culture (Wb) - Anticubital Left Blood Culture - Preliminary No growth in 48 hours. 05/24/23 05:20 Urine, Clean Catch Urine Culture - Final Gram negative faby Physical Exam Const alert, oriented x3 and no apparent distress General Appearance: cooperative and well developed HEENT normocephalic, head/scalp atraumatic, moist oral mucous membranes and oropharynx normal Eyes PERRL and EOMs intact bilaterally Neck no lymphadenopathy, supple and no JVD Lymph Lymphatic: no lymphadenopathy noted and no lymphedema noted Resp normal respiratory effort, normal air movement and clear to auscultation bilaterally Cardio regular rate, regular rhythm, S1 normal heart sound, S2 normal heart sound and no murmurs GI normal to inspection, nondistended, normoactive bowel sounds, soft to palpation, non-tender and non-distended GI Narrative: obese abdomen, negative Laurent's sign Extremity normal capillary refill, no clubbing, cyanosis or edema and no calf tenderness General Extremity: no tenderness to palpation of joints or extremities Skin General Skin Exam: no breakdown Neuro CN's II-XII intact bilaterally, no focal motor deficits and no sensory deficits noted Motor Exam: strength 5/5 throughout and general weakness Psych thought process normal, cooperative and affect normal Appearance: appropriate Assessment & Plan Assessment/Plan (1) Hyperbilirubinemia: PLAN: Plan #UTI: on iV zosyn. Urine cultures pending. #Hyperbilirubinemia * Liver enzymes improving with bilirubin down to 1.2. * S/p cholecystectomy remotely. * Hepatitis panel pending. Gastroenterology consulted. For MRCP today * #Thrombocytopenia: Platelets are 65 today. Was 70 on admission. Platelets have largely been normal in the past. Will monitor for now and if it worsens, consider hematology consult. #DOUG: Resolved. Creatinine is down to 0.98. #Hypokalemia: Potassium is 3.4. Replace and trend. #COPD: Not in exacerbation. Breathing treatments bronchodilators. #CAD s/p CABG and stents: * Did complain of some chest pain today. Initial troponin was 124 and essentially remained flat with repeat at 122. * Recently had 2D echo on May 24, 2023 which showed EF of 65% and mo derately enlarged left atrium as well as stable appearing bioprosthetic aortic valve. #Hypothyroidism: On Synthroid #Hyperlipidemia: Lipids held due to elevated liver enzymes. #Benign essential hypertension: On losartan and Lasix. #Chronic A-fib: On Eliquis DVT prophylaxis: SCDs due to thrombocytopenia. Charges/Coding Visit Charges Inpatient E&M: 07163 Subs Hosp L2
[2023-05-26 15:51] LABS: Troponin-I HS 125 pg/mL (3.0-54.0)
--- NOTE | 2023-05-26 17:20 | CHAPLAIN ---
Type of Pastoral Visit _x__ Initial Visit ___ Follow-up Visit ___ On-call Visit ___ General Patient Visit ___ Spiritual Assessment ___ Family Conference ___ Bereavement ___ Rapid Response ___ Code Blue ___ Other (describe below) Pastoral Care Referral From _x__ Patient ___ Family ___ Nurse ___ Physician ___ Elastic Attacher Coverstitch ___ Customer Development Representative ___ Other (describe below) Sacrament/Intervention _x__ Active listening ___ Anointing ___ Holiness ___ Bereavement ___ Communion ___ Debi exploration ___ _x__ Life review _x__ Prayer ___ Reconciliation ___ Sacrament of Sick _x__ Supportive presence ___ Wedding ___ Other (describe below) Pastoral Comments patient is welcoming and able to tell about her situation and feelings; pt had a big trip in the fall and is thankful to have been well then; pt believes she will go to SNF for rehab and hopes to return to her normal; 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
[2023-05-27] VITALS (10 sets, daily range): BP systolic 113–139; BP diastolic 51–89; PULSE 73–116; RESP 18–24; TEMP 36.1–36.7; O2SAT 93–100; BMI 35.4
[2023-05-27] MEDS: Levothyroxine 88 MCG Tablet PO (05:33)
[2023-05-27 05:54] LABS: Absolute Lymphocyte Count 1.58 X10^3/uL (0.83-4.51); Basophil# 0.07 X10^3/uL; Basophil% 0.9 % (0-1); Eosinophil# 0.19 X10^3/uL; Eosinophils% 2.6 % (0-5); Hematocrit 41.5 % (37-47); Hemoglobin 13.2 g/dL (12.0-15.0); Lymphocyte # 1.58 X10^3/ul (0.83-4.51); Lymphocyte % 21.4 % (19-41); Mean Corp Hgb Conc 31.8 g/dL (32-36); Mean Corpuscular Hgb 30.2 pg (27.0-32.0); Mean Platelet Vol. 14.1 fl (6.2-12.0); Monocyte# 1.47 X10^3/uL; Monocyte% 19.9 % (0-10); NRBC Flagged by Analyzer 0.8 % (0-5); Neutrophil # 3.95 X10^3/uL (2.7-7.7); Neutrophil % 53.6 % (47-70); POSITIVE COUNT YES; Platelet Count 68 K/mm3 (150-450); RBC Distribution Width CV 16.8 % (11.6-14.6); RBC Distribution Width SD 57.3 fl (35.1-43.9); Red Blood Count 4.37 M/mm3 (4.2-5.4); White Blood Count 7.4 K/mm3 (4.4-11.0)
[2023-05-27 06:24] LABS: ALB/GLOB Ratio 0.8 RATIO (0.9-2.4); AST(SGOT) 126 U/L (15-37); Alanine Aminotransfer ALT/SGPT 116 U/L (13-56); Albumin, Serum 2.7 g/dL (3.2-5.0); Alkaline Phosphatase 208 U/L (45-117); Anion Gap 4 (5-15); BUN 21 mg/dL (7-18); BUN/Creat Ratio 22.1 RATIO (10-20); Calcium,Total 8.6 mg/dL (8.5-10.1); Chloride 110 mmol/L (98-107); Creatinine, Serum 0.95 mg/dL (0.55-1.02); EST Glomerular Filtration Rate 60 mL/min (>60); Est Glom Filt Rate - Afr Amer 72 mL/min (>60); Estimated Creatinine Clearance 41.92 ml/min; Globulin 3.6 g/dL (2.2-4.2); Glucose 102 mg/dL (74-106); Potassium 3.6 mmol/L (3.5-5.1); Protein, Total 6.3 g/dL (6.4-8.2); Sodium Level 141 mmol/L (136-145)
[2023-05-27] MEDS: Ipratropium/Albuterol Sulfate 3 ML AMPUL.NEB INHALATION ×3 (07:06→19:26)
[2023-05-27] MEDS: Pantoprazole Sodium 40 MG Tablet PO (09:27)
[2023-05-27] MEDS: Multivitamins,Ther W-Minerals Tablet 1 TABLET PO (09:27)
[2023-05-27] MEDS: Cephalexin 500 MG Capsule PO ×2 (09:28→19:55)
[2023-05-27] MEDS: Magnesium Chloride 64 MG Delay Rel.Tablet 128 MG PO (09:28)
[2023-05-27] MEDS: MethylPREDNISolone 125 MG/2 ML Vial 60 MG IV (09:29)
[2023-05-27] MEDS: APIXABAN 5 MG TABLET PO ×2 (09:30→19:55)
[2023-05-27] MEDS: 0.9% Saline Lock 10 ML Syringe IV (09:33)
--- NOTE | 2023-05-27 14:38 | PN_ITS ---
Subjective Subjective Patient seen and examined. She said she felt weak today. She had no other active complaints. Review of systems is otherwise negative. Objective Data Objective Data Vital Signs: Vital Signs Temp Pulse Resp BP Pulse Ox O2 Del Method O2 Flow Rate 98.1 F 88 21 H 122/51 H 100 Nasal Cannula 2 05/27/23 09:46 05/27/23 13:10 05/27/23 13:10 05/27/23 09:46 05/27/23 09:46 05/27/23 09:46 05/27/23 09:46 Oxygen Flow Rate (L/min) 2 Oxygen Delivery Method Nasal Cannula Weight: 175 lb 11.335 oz Body Mass Index (BMI) 35.4 Intake & Output: Intake and Output for Last 24 Hours 05/25/23 05/26/23 05/27/23 23:59 23:59 23:59 Intake Total 3000 / 3000 2947.5 / 3187.5 930 / 930 Output Total 550 / 550 Balance 2450 / 2450 2947.5 / 3187.5 930 / 930 Lab / Micro Data 05/27/23 05:41 05/27/23 05:41 Labs: Laboratory Results - last 24 hr 05/26/23 15:20: Troponin I High Sens 125 H* 05/27/23 05:41: WBC 7.4, RBC 4.37, Hgb 13.2, Hct 41.5, MCV 95.0, MCH 30.2, MCHC 31.8 L, RDW Std Deviation 57.3 H, RDW Coeff of Ryan 16.8 H, Plt Count 68 L, MPV 14.1 H, Immature Gran % (Auto) 1.600 H, Neut % (Auto) 53.6, Lymph % (Auto) 21.4, [place] % (Auto) 19.9 H, Eos % (Auto) 2.6, Baso % (Auto) 0.9, Absolute Neuts (auto) 4.0, Absolute Lymphs (auto) 1.58, Nucleated RBC % 0.8, Sodium 141, Potassium 3.6, Chloride 110 H, Carbon Dioxide 27.0, Anion Gap 4 L, BUN 21 H, Creatinine 0.95, Estim Creat Clear Calc 41.92, Est GFR (MDRD) Af Amer 72, Est GFR (MDRD) Non-Af 60, BUN/Creatinine Ratio 22.1 H, Glucose 102, Calcium 8.6, Total Bilirubin 1.40 H, AST 126 H, ALT 116 H, Alkaline Phosphatase 208 H, Total Protein 6.3 L, Albumin 2.7 L, Globulin 3.6, Albumin/Globulin Ratio 0.8 L Micro: Microbiology 05/24/23 02:15 Blood Culture (Wb) - Anticubital Left Blood Culture - Preliminary No growth in 48 hours. 05/24/23 01:30 Blood Culture (Wb) - Anticubital Left Blood Culture - Preliminary No growth in 48 hours. 05/24/23 05:20 Urine, Clean Catch Urine Culture - Final Gram negative faby Physical Exam Const alert, oriented x3, no apparent distress and average body habitus Constitutional Narrative: Patient appears elderly and chronically ill. General Appearance: cooperative, well kempt and well developed Orientation / Consciousness: awake, oriented to person, oriented to place and o riented to time HEENT normocephalic, head/scalp atraumatic, hearing grossly normal bilaterally, moist oral mucous membranes and oropharynx normal Eyes PERRL, EOMs intact bilaterally and conjunctivae normal Neck no lymphadenopathy, supple, no JVD, thyroid normal and no carotid bruits General: trachea midline Lymph Lymphatic: no lymphadenopathy noted and no lymphedema noted Resp normal respiratory effort, normal air movement, no retractions, no use of accessory muscles and clear to auscultation bilaterally Auscultation: Negative for rales, rhonchi or wheezes Cardio regular rate, regular rhythm, S1 normal heart sound, S2 normal heart sound, no murmurs, no rub and no gallops Cardio Narrative: Heart rate and rhythm is irregular GI normal to inspection, nondistended, normoactive bowel sounds, soft to palpation, non-tender and non-distended GI Narrative: obese abdomen Extremity normal to inspection, full ROM, normal capillary refill, no clubbing, cyanosis or edema and no calf tenderness General Extremity: no tenderness to palpation of joints or extremities Skin no rashes or lesions noted General Skin Exam: no breakdown Neuro oriented x3, CN's II-XII intact bilaterally, moves all extremities, no focal motor deficits and no sensory deficits noted Sensorium / Orientation: awake, alert, oriented to person, oriented to place and oriented to time Speech: speech normal Motor Exam: strength 5/5 throughout and general weakness Psych thought process normal, cooperative and affect normal Appearance: appropriate Assessment & Plan Assessment/Plan (1) Hyperbilirubinemia: PLAN: Plan #UTI: on IV zosyn. Urine cultures pending. #Hyperbilirubinemia * Liver enzymes have trended up slightly today. Total bilirubin is 1.4, from 1.2 yesterday * AST, ALT and ALP have trended up slightly * S/p cholecystectomy remotely. * Hepatitis panel negative. * MRCP showed hepatomegaly with questionable liver cirrhosis and peripancreatic and hepatoduodenal ligament lymphadenopathy of uncertain etiology * GI on board. 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 Per GI, she may need an upper GI scope if she cannot tolerate a diet. May need a liver biopsy eventually per GI, but that would only be indicated if she was going to go for her therapy as it would not prolong her life * * #Thrombocytopenia: * Platelets are slightly up to 68 today from 65 yesterday. Was 70 on admission. * Platelets have largely been normal in the past. * likely due to underlying liver disease #DOUG: Resolved. Creatinine is down to 0.98. #Hypokalemia: Potassium is 3.4. Replace and trend. #COPD: Not in exacerbation. Breathing treatments bronchodilators. #CAD s/p CABG and stents: * Did complain of some chest pain today. Initial troponin was 124 and essentially remained flat with repeat at 122 and 125. * EKG showed no acute ST changes * Recently had 2D echo on May 24, 2023 which showed EF of 65% and moderately enlarged left atrium as well as stable appearing bioprosthetic aortic valve. * chest pain hasn't recurred. #Hypothyroidism: On Synthroid #Hyperlipidemia: Lipids held due to elevated liver enzymes. #Benign essential hypertension: On losartan and Lasix. #Chronic A-fib: On Eliquis DVT prophylaxis: SCDs due to thrombocytopenia. Charges/Coding Visit Charges Inpatient E&M: 86655 Subs Hosp L2
--- NOTE | 2023-05-27 19:43 | EX.PCM.PN.GI ---
Subjective Subjective Patient looks very good and has been doing very well. She is no longer exhibiting any signs of encephalopathy and has been having good bowel movements. Her daughter and son-in-law are at the bedside. Objective Data Objective Data Vital Signs: Vital Signs Temp Pulse Resp BP Pulse Ox O2 Del Method O2 Flow Rate 97 F L 96 20 H 124/78 H 94 Room Air 2 05/27/23 18:50 05/27/23 18:50 05/27/23 18:50 05/27/23 18:50 05/27/23 18:50 05/27/23 18:50 05/27/23 14:12 Oxygen Flow Rate (L/min) 2 Oxygen Delivery Method Room Air Weight: 175 lb 11.335 oz Body Mass Index (BMI) 35.4 Intake & Output: Intake and Output for Last 24 Hours 05/25/23 05/26/23 05/27/23 23:59 23:59 23:59 Intake Total 3000 / 3000 2947.5 / 3187.5 930 / 930 Output Total 550 / 550 Balance 2450 / 2450 2947.5 / 3187.5 930 / 930 Lab / Micro Data 05/27/23 05:41 05/27/23 05:41 Labs: Laboratory Results - last 24 hr 05/27/23 05:41: WBC 7.4, RBC 4.37, Hgb 13.2, Hct 41.5, MCV 95.0, MCH 30.2, MCHC 31.8 L, RDW Std Deviation 57.3 H, RDW Coeff of Ryan 16.8 H, Plt Count 68 L, MPV 14.1 H, Immature Gran % (Auto) 1.600 H, Neut % (Auto) 53.6, Lymph % (Auto) 21.4, [place] % (Auto) 19.9 H, Eos % (Auto) 2.6, Baso % (Auto) 0.9, Absolute Neuts (auto) 4.0, Absolute Lymphs (auto) 1.58, Nucleated RBC % 0.8, Sodium 141, Potassium 3.6, Chloride 110 H, Carbon Dioxide 27.0, Anion Gap 4 L, BUN 21 H, Creatinine 0.95, Estim Creat Clear Calc 41.92, Est GFR (MDRD) Af Amer 72, Est GFR (MDRD) Non-Af 60, BUN/Creatinine Ratio 22.1 H, Glucose 102, Calcium 8.6, Total Bilirubin 1.40 H, AST 126 H, ALT 116 H, Alkaline Phosphatase 208 H, Total Protein 6.3 L, Albumin 2.7 L, Globulin 3.6, Albumin/Globulin Ratio 0.8 L Micro: Microbiology 05/24/23 02:15 Blood Culture (Wb) - Anticubital Left Blood Culture - Preliminary No growth in 48 hours. 05/24/23 01:30 Blood Culture (Wb) - Anticubital Left Blood Culture - Preliminary No growth in 48 hours. 05/24/23 05:20 Urine, Clean Catch Urine Culture - Final Gram negative faby Assessment & Plan Assessment/Plan (1) Thrombocytopenia: (2) COPD with acute exacerbation: (3) Transaminasemia: (4) Hyperbilirubinemia: PLAN: Plan 82-year-old with jaundice and cholestatic hepatitis. 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 There were no space-occupying lesions in the liver. 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 It is not known if she has been ever checked for hepatitis C. Risk factors would be previous blood transfusions. She has no other autoimmune disease which would make me think she has autoimmune hepatitis. 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 She is not showing any signs of encephalopathy, ascites or GI bleeding at this time as a complication of cirrhosis. She should be checked for autoimmune hepatitis, hemochromatosis, amyloidosis, sarcoidosis, chronic viral hepatitis. She may need an upper endoscopy because of nausea vomiting if she cannot tolerate a diet after IV fluid administration. I do not think she needs an ERCP at this time due to no ductal abnormalities that were seen and there was no signs and symptoms of primary sclerosing cholangitis on imaging. She may need a liver biopsy in the future but that would only be indicated if she was going to go on for her therapy as it would not prolong her life. 05/27/23-I had a long talk with her family and I do not think that she would benefit from liver biopsy at this time as she would need to go on steroids and possibly azathioprine. I think she has cirrhosis from BHANDARI versus cardiac cirrhosis. At this time her MELD is 20. She is a child class B. She is not a liver transplant candidate due to her age and other comorbidities. I will send biochemical workup for chronic hepatitis. In the meantime recommend lactulose 20 cc p.o. 3 times daily, nadolol 10 mg p.o. twice daily, Xifaxan 550 mg p.o. twice daily. I told her she has a 500 mg sodium limit. She was given a patient's guide on cirrhosis. She is okay for anticoagulation and antiplatelets at this time after talking with her daughter due to severe coronary artery disease and carotid artery disease. We discussed the issues with thrombocytopenia and cirrhosis while being on antiplatelet therapy in great detail. If her biochemical workup comes back positive for autoimmune disease she may benefit from just azathioprine and not steroid. Charges/Coding Visit Charges Inpatient E&M: 24103 Subs Hosp L3
--- NOTE | 2023-05-27 23:03 | CPS ---
Patient set up with own PAP machine for the night.
[2023-05-28 02:34] VITALS: BMI 36.2
[2023-05-28 04:56] LABS: Absolute Lymphocyte Count 1.36 X10^3/uL (0.83-4.51); Absolute Neutrophil Count 4.2 X10^3/uL (2.0-7.7); Basophil# 0.06 X10^3/uL; Basophil% 0.9 % (0-1); Eosinophil# 0.12 X10^3/uL; Eosinophils% 1.8 % (0-5); Hematocrit 40.2 % (37-47); Lymphocyte # 1.36 X10^3/ul (0.83-4.51); Mean Corp Hgb Conc 32.3 g/dL (32-36); Mean Corpuscular Hgb 30.3 pg (27.0-32.0); Mean Corpuscular Volume 93.7 fL (81-99); Mean Platelet Vol. 14.4 fl (6.2-12.0); Monocyte# 0.95 X10^3/uL; Neutrophil # 4.19 X10^3/uL (2.7-7.7); Neutrophil % 61.5 % (47-70); POSITIVE COUNT YES; Platelet Count 68 K/mm3 (150-450); RBC Distribution Width CV 16.7 % (11.6-14.6); RBC Distribution Width SD 56.2 fl (35.1-43.9); Red Blood Count 4.29 M/mm3 (4.2-5.4); White Blood Count 6.8 K/mm3 (4.4-11.0)
[2023-05-28] MEDS: Levothyroxine 88 MCG Tablet PO (05:10)
[2023-05-28 05:18] LABS: ALB/GLOB Ratio 0.7 RATIO (0.9-2.4); AST(SGOT) 125 U/L (15-37); Alanine Aminotransfer ALT/SGPT 110 U/L (13-56); Albumin, Serum 2.6 g/dL (3.2-5.0); Alkaline Phosphatase 205 U/L (45-117); Anion Gap 4 (5-15); BUN 22 mg/dL (7-18); BUN/Creat Ratio 23.6 RATIO (10-20); Calcium,Total 8.6 mg/dL (8.5-10.1); Chloride 109 mmol/L (98-107); Creatinine, Serum 0.93 mg/dL (0.55-1.02); EST Glomerular Filtration Rate 61 mL/min (>60); Est Glom Filt Rate - Afr Amer 74 mL/min (>60); Estimated Creatinine Clearance 43.31 ml/min; Globulin 3.5 g/dL (2.2-4.2); Glucose 98 mg/dL (74-106); Potassium 3.7 mmol/L (3.5-5.1); Protein, Total 6.1 g/dL (6.4-8.2); Sodium Level 140 mmol/L (136-145)
[2023-05-28 06:55] VITALS: PULSE 95; RESP 17; O2SAT 92
[2023-05-28] MEDS: Ipratropium/Albuterol Sulfate 3 ML AMPUL.NEB INHALATION ×3 (06:55→19:45)
[2023-05-28 07:45] VITALS: BP 140/82; PULSE 100; RESP 16; TEMP 36.6; O2SAT 99
[2023-05-28] MEDS: MethylPREDNISolone 125 MG/2 ML Vial 60 MG IV (09:30)
[2023-05-28] MEDS: 0.9% Saline Lock 10 ML Syringe IV (09:32)
[2023-05-28] MEDS: Lactulose 20 GM/30 ML UDC PO ×3 (09:32→19:37)
[2023-05-28] MEDS: Pantoprazole Sodium 40 MG Tablet PO (09:33)
[2023-05-28] MEDS: Multivitamins,Ther W-Minerals Tablet 1 TABLET PO (09:33)
[2023-05-28] MEDS: Magnesium Chloride 64 MG Delay Rel.Tablet 128 MG PO (09:33)
[2023-05-28] MEDS: APIXABAN 5 MG TABLET PO ×2 (09:34→19:37)
[2023-05-28] MEDS: Nadolol 20 MG Tablet 10 MG PO ×2 (09:34→19:37)
[2023-05-28] MEDS: Cephalexin 500 MG Capsule PO ×2 (09:34→19:37)
[2023-05-28] MEDS: rifAXIMin 550 MG Tablet PO ×2 (09:34→19:37)
--- NOTE | 2023-05-28 11:20 | CASEMGMT ---
Discharge Planning A list of?SNF and HH providers including quality and resource use data and consistent with the patient's preferred geographic region, medical needs, and insurance network was created in [facility] Guide.? This list was provided to the RN CM. Chanelle Meng, Discharge Planning Asst.
--- NOTE | 2023-05-28 12:34 | PN_ITS ---
Subjective Subjective Patient seen and examined. Her daughter was by her bedside. She had no active complaints. Review of systems is otherwise negative. Objective Data Objective Data Vital Signs: Vital Signs Temp Pulse Resp BP Pulse Ox O2 Del Method O2 Flow Rate 97.8 F 100 16 140/82 H 99 Room Air 2 05/28/23 07:45 05/28/23 07:45 05/28/23 07:45 05/28/23 07:45 05/28/23 07:45 05/28/23 08:28 05/28/23 07:45 Oxygen Flow Rate (L/min) 2 Oxygen Delivery Method Room Air Weight: 179 lb 7.3 oz Body Mass Index (BMI) 36.2 Intake & Output: Intake and Output for Last 24 Hours 05/26/23 05/27/23 05/28/23 23:59 23:59 23:59 Intake Total 2947.5 / 3187.5 930 / 1170 480 / 480 Output Total 2 / 2 Balance 2947.5 / 3187.5 930 / 1170 478 / 478 Lab / Micro Data 05/28/23 04:10 05/28/23 04:10 Labs: Laboratory Results - last 24 hr 05/28/23 04:10: WBC 6.8, RBC 4.29, Hgb 13.0, Hct 40.2, MCV 93.7, MCH 30.3, MCHC 32.3, RDW Std Deviation 56.2 H, RDW Coeff of Ryan 16.7 H, Plt Count 68 L, MPV 14.4 H, Immature Gran % (Auto) 1.800 H, Neut % (Auto) 61.5, Lymph % (Auto) 20.0, [place] % (Auto) 14.0 H, Eos % (Auto) 1.8, Baso % (Auto) 0.9, Absolute Neuts (auto) 4.2, Absolute Lymphs (auto) 1.36, Nucleated RBC % 1.0, Sodium 140, Potassium 3.7, Chloride 109 H, Carbon Dioxide 27.0, Anion Gap 4 L, BUN 22 H, Creatinine 0.93, Estim Creat Clear Calc 43.31, Est GFR (MDRD) Af Amer 74, Est GFR (MDRD) Non-Af 61, BUN/Creatinine Ratio 23.6 H, Glucose 98, Calcium 8.6, Total Bilirubin 2.00 H, AST 125 H, ALT 110 H, Alkaline Phosphatase 205 H, Total Protein 6.1 L, Albumin 2.6 L, Globulin 3.5, Albumin/Globulin Ratio 0.7 L Micro: Microbiology 05/24/23 02:15 Blood Culture (Wb) - Anticubital Left Blood Culture - Preliminary No growth in 48 hours. 05/24/23 01:30 Blood Culture (Wb) - Anticubital Left Blood Culture - Preliminary No growth in 48 hours. 05/24/23 05:20 Urine, Clean Catch Urine Culture - Final Gram negative faby Physical Exam Const alert, oriented x3, no apparent distress, average body habitus and healthy appearing Constitutional Narrative: elderly General Appearance: cooperative, well kempt and well developed Orientation / Consciousness: awake, oriented to person, oriented to place and oriented to time HEENT normocephalic, head/scalp atraumatic, hearing grossly normal bilaterally, moist oral mucous membranes and oropharynx normal Eyes PERRL, EOMs intact bilaterally and conjunctivae normal Neck no lymphadenopathy, supple, no JVD, thyroid normal and no carotid bruits General: trachea midline Lymph Lymphatic: no lymphadenopathy noted and no lymphedema noted Resp normal respiratory effort, normal air movement, no retractions, no use of accessory muscles and clear to auscultation bilaterally Auscultation: Negative for rales, rhonchi or wheezes Cardio regular rate, regular rhythm, S1 normal heart sound, S2 normal heart sound, no murmurs, no rub and no gallops GI normal to inspection, nondistended, normoactive bowel sounds, soft to palpation, non-tender and non-distended GI Narrative: obese abdomen Extremity normal to inspection, full ROM, normal capillary refill, no clubbing, cyanosis or edema and no calf tenderness General Extremity: no tenderness to palpation of joints or extremities Skin no rashes or lesions noted General Skin Exam: no breakdown Neuro oriented x3, CN's II-XII intact bilaterally, moves all extremities, no focal motor deficits and no sensory deficits noted Sensorium / Orientation: awake, alert, oriented to person, oriented to place and oriented to time Speech: speech normal Motor Exam: strength 5/5 throughout and general weakness Psych thought process normal, cooperative and affect normal Appearance: appropriate Assessment & Plan Assessment/Plan (1) Hyperbilirubinemia: PLAN: Plan #UTI: on PO keflex. Urine cultures grew E coli. #Hyperbilirubinemia * Liver enzymes have trended up slightly today. Total bilirubin is up to 2 today. * AST, ALT and ALP have also trended up slightly * S/p cholecystectomy remotely. * Hepatitis panel negative. * MRCP showed hepatomegaly with questionable liver cirrhosis and peripancreatic and hepatoduodenal ligament lymphadenopathy of uncertain etiology * GI on board. 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 Per GI, she may need an upper GI scope if she cannot tolerate a diet. May need a liver biopsy eventually per GI, but that would only be indicated if she was going to go for her therapy as it would not prolong her life. * started on PO lactulose, rifaximin and nadolol per GI. * * #Thrombocytopenia: * platelets are still 68 today. * Platelets have largely been normal in the past. * likely due to underlying liver disease #DOUG: Resolved. Creatinine is down to 0.98. #Hypokalemia: resolved. k is 3.7. #COPD: Not in exacerbation. Breathing treatments bronchodilators. #CAD s/p CABG and stents: * Did complain of some chest pain today. Initial troponin was 124 and essentially remained flat with repeat at 122 and 125. * EKG showed no acute ST changes * Recently had 2D echo on May 24, 2023 which showed EF of 65% and moderately enlarged left atrium as well as stable appearing bioprosthetic aortic valve. * chest pain hasn't recurred and she has remained stable #Hypothyroidism: On Synthroid #Hyperlipidemia: Lipids held due to elevated liver enzymes. #Benign essential hypertension: On losartan and Lasix. #Chronic A-fib: On Eliquis DVT prophylaxis: SCDs due to thrombocytopenia. Charges/Coding Visit Charges Inpatient E&M: 35823 Subs Hosp L2
--- NOTE | 2023-05-28 13:54 | CASEMGMT ---
ANNAMARIE OLVERA in to discuss plans at discharge with patient and daughter. Daughter concerned that patient will need to be completely independent when coming home with her. Discuss goals and progress with therapy. Patient is ambulated 40-60ft contact guard with therapies. ANNAMARIE OLVERA updated patient and daughter that patient would likely get denied by insurance to SNF as she is ambulating household distances. ANNAMARIE OLVERA reviewed HHC level care with patient and daughter. Daughter states that patient lives with her but goes to the basement to do laundry. Daughter states she can help patient with laundry at home. ANNAMARIE OLVERA advised patient and daughter that CM would review progress with therapy today and follow tomorrow regarding SNF vs HHC. SNF and HHC list provided to patient and daughter to review. CM will continue to follow this patient and plan for a safe discharge.
[2023-05-28 14:05] VITALS: O2SAT 98
[2023-05-28 15:17] VITALS: BP 135/95; PULSE 93; RESP 16; TEMP 36.3; O2SAT 97
--- NOTE | 2023-05-28 17:02 | PN.GI_ITS ---
Subjective Subjective Patient is doing well today. I printed out some literature regarding cirrhosis in the elderly and a new diagnosis of cirrhosis and gave to the patient and the patient's daughter. She has not shown any signs of decompensation and continues to have good mentation. Objective Data Objective Data Vital Signs: Vital Signs Temp Pulse Resp BP Pulse Ox O2 Del Method O2 Flow Rate 97.3 F L 93 16 135/95 H 97 Room Air 2 05/28/23 15:17 05/28/23 15:17 05/28/23 15:17 05/28/23 15:17 05/28/23 15:17 05/28/23 15:17 05/28/23 14:05 Oxygen Flow Rate (L/min) 2 Oxygen Delivery Method Room Air Weight: 179 lb 7.3 oz Body Mass Index (BMI) 36.2 Intake & Output: Intake and Output for Last 24 Hours 05/26/23 05/27/23 05/28/23 23:59 23:59 23:59 Intake Total 2947.5 / 3187.5 930 / 1170 930 / 930 Output Total 2 / 2 Balance 2947.5 / 3187.5 930 / 1170 928 / 928 Lab / Micro Data 05/28/23 04:10 05/28/23 04:10 Labs: Laboratory Results - last 24 hr 05/28/23 04:10: WBC 6.8, RBC 4.29, Hgb 13.0, Hct 40.2, MCV 93.7, MCH 30.3, MCHC 32.3, RDW Std Deviation 56.2 H, RDW Coeff of Ryan 16.7 H, Plt Count 68 L, MPV 14.4 H, Immature Gran % (Auto) 1.800 H, Neut % (Auto) 61.5, Lymph % (Auto) 20.0, [place] % (Auto) 14.0 H, Eos % (Auto) 1.8, Baso % (Auto) 0.9, Absolute Neuts (auto) 4.2, Absolute Lymphs (auto) 1.36, Nucleated RBC % 1.0, Sodium 140, Potassium 3.7, Chloride 109 H, Carbon Dioxide 27.0, Anion Gap 4 L, BUN 22 H, Creatinine 0.93, Estim Creat Clear Calc 43.31, Est GFR (MDRD) Af Amer 74, Est GFR (MDRD) Non-Af 61, BUN/Creatinine Ratio 23.6 H, Glucose 98, Calcium 8.6, Total Bilirubin 2.00 H, AST 125 H, ALT 110 H, Alkaline Phosphatase 205 H, Total Protein 6.1 L, Albumin 2.6 L, Globulin 3.5, Albumin/Globulin Ratio 0.7 L Micro: Microbiology 05/24/23 02:15 Blood Culture (Wb) - Anticubital Left Blood Culture - Preliminary No growth in 48 hours. 05/24/23 01:30 Blood Culture (Wb) - Anticubital Left Blood Culture - Preliminary No growth in 48 hours. 05/24/23 05:20 Urine, Clean Catch Urine Culture - Final Gram negative faby Physical Exam Const alert, oriented x3, no apparent distress, average body habitus and healthy appearing Constitutional Narrative: elderly General Appearance: cooperative, well kempt and well developed Orientation / Consciousness: awake, oriented to person, oriented to place and oriented to time HEENT normocephalic, head/scalp atraumatic, hearing grossly normal bilaterally, moist oral mucous membranes and oropharynx normal Eyes PERRL, EOMs intact bilaterally and conjunctivae normal Neck no lymphadenopathy, supple, no JVD, thyroid normal and no carotid bruits General: trachea midline Lymph Lymphatic: no lymphadenopathy noted and no lymphedema noted Resp normal respiratory effort, normal air movement, no retractions, no use of accessory muscles and clear to auscultation bilaterally Auscultation: Negative for rales, rhonchi or wheezes Cardio regular rate, regular rhythm, S1 normal heart sound, S2 normal heart sound, no murmurs, no rub and no gallops GI normal to inspection, nondistended, normoactive bowel sounds, soft to palpation, non-tender and non-distended GI Narrative: obese abdomen Extremity normal to inspection, full ROM, normal capillary refill, no clubbing, cyanosis or edema and no calf tenderness General Extremity: no tenderness to palpation of joints or extremities Skin no rashes or lesions noted General Skin Exam: no breakdown Neuro oriented x3, CN's II-XII intact bilaterally, moves all extremities, no focal motor deficits and no sensory deficits noted Sensorium / Orientation: awake, alert, oriented to person, oriented to place and oriented to time Speech: speech normal Motor Exam: strength 5/5 throughout and general weakness Psych thought process normal, cooperative and affect normal Appearance: appropriate Assessment & Plan Assessment/Plan (1) Thrombocytopenia: (2) COPD with acute exacerbation: (3) Transaminasemia: (4) Hyperbilirubinemia: PLAN: Plan 82-year-old with jaundice and cholestatic hepatitis. 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 There were no space-occupying lesions in the liver. 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 It is not known if she has been ever checked for hepatitis C. Risk factors would be previous blood transfusions. She has no other autoimmune disease which would make me think she has autoimmune hepatitis. 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 She is not showing any signs of encephalopathy, ascites or GI bleeding at this time as a complication of cirrhosis. She should be checked for autoimmune hepatitis, hemochromatosis, amyloidosis, sarcoidosis, chronic viral hepatitis. She may need an upper endoscopy because of nausea vomiting if she cannot tolera te a diet after IV fluid administration. I do not think she needs an ERCP at this time due to no ductal abnormalities that were seen and there was no signs and symptoms of primary sclerosing cholangitis on imaging. She may need a liver biopsy in the future but that would only be indicated if darrion ashley was going to go on for her therapy as it would not prolong her life. 05/27/23-I had a long talk with her family and I do not think that she would benefit from liver biopsy at this time as she would need to go on steroids and possibly azathioprine. I think she has cirrhosis from BHANDARI versus cardiac cirrhosis. At this time her MELD is 20. She is a child class B. She is not a liver transplant candidate due to her age and other comorbidities. I will send biochemical workup for chronic hepatitis. In the meantime recommend lactulose 20 cc p.o. 3 times daily, nadolol 10 mg p.o. twice daily, Xifaxan 550 mg p.o. twice daily. I told her she has a 500 mg sodium limit. She was given a patient's guide on cirrhosis. She is okay for anticoagulation and antiplatelets at this time after talking with her daughter due to severe coronary artery disease and carotid artery disease. We discussed the issues with thrombocytopenia and cirrhosis while being on antiplatelet therapy in great detail. If her biochemical workup comes back positive for autoimmune disease she may benefit from just azathioprine and not steroid. 05/28/23-her LFTs are about the same. She has not shown any signs or symptoms of encephalopathy at this time. She does have some mild dementia. Platelet count and hemoglobin also remained the same. Her MELD is still the same at 20. She is now between a child class a and class B. She was started on medical therapy for decompensated cirrhosis and is tolerating her medicines without any problems. If her blood pressure continues to be normal I would add midodrine 10 mg p.o. 3 times daily. Charges/Coding Visit Charges Inpatient E&M: 73853 Subs Hosp L3
[2023-05-28] MEDS: Isosorbide Mononitrate 20 MG Tablet PO (19:37)
[2023-05-28 19:45] VITALS: PULSE 102; RESP 24
[2023-05-29] VITALS (10 sets, daily range): BP systolic 119–141; BP diastolic 70–78; PULSE 77–108; RESP 16–22; TEMP 36.3–36.9; O2SAT 89–97; BMI 36.4
[2023-05-29] MEDS: Levothyroxine 88 MCG Tablet PO (05:52)
[2023-05-29 06:41] LABS: Absolute Lymphocyte Count 1.21 X10^3/uL (0.83-4.51); Absolute Neutrophil Count 5.3 X10^3/uL (2.0-7.7); Basophil# 0.06 X10^3/uL; Basophil% 0.8 % (0-1); Eosinophil# 0.21 X10^3/uL; Eosinophils% 2.7 % (0-5); Hemoglobin 12.7 g/dL (12.0-15.0); Lymphocyte # 1.21 X10^3/ul (0.83-4.51); Lymphocyte % 15.5 % (19-41); Mean Corp Hgb Conc 32.6 g/dL (32-36); Mean Corpuscular Hgb 30.5 pg (27.0-32.0); Mean Corpuscular Volume 93.8 fL (81-99); Monocyte# 0.96 X10^3/uL; Monocyte% 12.3 % (0-10); NRBC Flagged by Analyzer 1.7 % (0-5); Neutrophil # 5.25 X10^3/uL (2.7-7.7); Neutrophil % 67.2 % (47-70); POSITIVE COUNT YES; Platelet Count 69 K/mm3 (150-450); RBC Distribution Width CV 16.8 % (11.6-14.6); Red Blood Count 4.16 M/mm3 (4.2-5.4); White Blood Count 7.8 K/mm3 (4.4-11.0)
[2023-05-29 07:03] LABS: ALB/GLOB Ratio 0.7 RATIO (0.9-2.4); AST(SGOT) 131 U/L (15-37); Alanine Aminotransfer ALT/SGPT 113 U/L (13-56); Albumin, Serum 2.4 g/dL (3.2-5.0); Alkaline Phosphatase 224 U/L (45-117); Anion Gap 3 (5-15); BUN 27 mg/dL (7-18); BUN/Creat Ratio 32.9 RATIO (10-20); Calcium,Total 8.5 mg/dL (8.5-10.1); Chloride 111 mmol/L (98-107); Creatinine, Serum 0.82 mg/dL (0.55-1.02); EST Glomerular Filtration Rate 71 mL/min (>60); Est Glom Filt Rate - Afr Amer 86 mL/min (>60); Estimated Creatinine Clearance 49.25 ml/min; Globulin 3.5 g/dL (2.2-4.2); Glucose 115 mg/dL (74-106); Potassium 3.5 mmol/L (3.5-5.1); Protein, Total 5.9 g/dL (6.4-8.2); Sodium Level 140 mmol/L (136-145)
[2023-05-29] MEDS: Ipratropium/Albuterol Sulfate 3 ML AMPUL.NEB INHALATION ×4 (07:03→23:00)
[2023-05-29] MEDS: Multivitamins,Ther W-Minerals Tablet 1 TABLET PO (09:20)
[2023-05-29] MEDS: Aspirin E.C. 81 MG Tablet PO (09:20)
[2023-05-29] MEDS: APIXABAN 5 MG TABLET PO ×2 (09:21→20:52)
[2023-05-29] MEDS: rifAXIMin 550 MG Tablet PO ×2 (09:21→20:50)
[2023-05-29] MEDS: Pantoprazole Sodium 40 MG Tablet PO (09:21)
[2023-05-29] MEDS: Nadolol 20 MG Tablet 10 MG PO ×2 (09:21→20:52)
[2023-05-29] MEDS: Magnesium Chloride 64 MG Delay Rel.Tablet 128 MG PO (09:21)
[2023-05-29] MEDS: Cephalexin 500 MG Capsule PO ×2 (09:22→20:52)
[2023-05-29] MEDS: Isosorbide Mononitrate 20 MG Tablet PO ×2 (09:22→20:52)
[2023-05-29] MEDS: MethylPREDNISolone 125 MG/2 ML Vial 60 MG IV (09:23)
[2023-05-29] MEDS: 0.9% Saline Lock 10 ML Syringe IV (09:23)
--- NOTE | 2023-05-29 10:41 | CASEMGMT ---
ANNAMARIE OLVERA updated by hospitalist that patient may possibly be discharged today. ANNAMARIE OLVERA reviewed therapy notes from 05/28/23 and patient walked 180ft SBA with walker. ANNAMARIE OLVERA received message to call daughter Hayley. ANNAMARIE OLVERA called Hayley, no answer and left message with return contact information. ANNAMARIE OLVERA received call back from Hayley. ANNAMARIE OLVERA reviewed progress with therapy. Daughter states that patient has to be completely independent at home and has not used a walker at home either. ANNAMARIE OLVERA explained to daughter that therapy has been working with patient regarding use of walker. ANNAMARIE OLVERA also explained that patient is doing very well with ambulation 3x house hold distances and that her insurance would deny patient for SNF level of care. Hayley states she works at a long-term and knows that patients can admit under other skilled service beside therapy. ANNAMARIE OLVERA explained that medication adjustment, oxygen, and therapy can be done at home with C setup. Daughter states she still wants to pursue SNF setup and prefers [facility]. ANNAMARIE OLVERA updated daughter that a referral can be made to see insurances determination. Daughter end phone call. ANNAMARIE OLVERA updated SW regarding request for SNF.
--- NOTE | 2023-05-29 10:45 | CASEMGMT ---
Patient's daughters responded via [facility]Port and stated their 3 SNF choices are [facility], [facility], and [facility]. SW made a referral to [facility], but then RN MAY spoke with daughter this am and she said [facility]. MALINA asked Chanelle to send a referral to [facility] also. Meenakshi Montero AUTOMATIC DISPENSER MECHANIC CHELSEA
--- NOTE | 2023-05-29 10:52 | CASEMGMT ---
Discharge Planning Referral sent to [facility] via [facility]. Chanelle Meng, Discharge Planning Asst.
--- NOTE | 2023-05-29 11:10 | CASEMGMT ---
[facility] can take patient and will start pre-cert. However, Gabbi as well as MALINA are concerned patient will not get approved by insurance. [facility] also accepted patient so Chanelle will notify them patient's first choice accepted. Plan: [facility] pending insurance approval. Meenakshi Montero GEAR CUTTING MACHINE SET UP OPERATOR CHELSEA
[2023-05-29 11:55] LABS: Magnesium 2.1 mg/dL (1.6-2.6)
--- NOTE | 2023-05-29 13:59 | PN_ITS ---
Subjective Subjective Patient seen and examined. She had no active complaints and had an uneventful night. Review of systems is otherwise negative. She had a short beat run of vtach. Bilirubin has trended down slightly to 1.8 today. Objective Data Objective Data Vital Signs: Vital Signs Temp Pulse Resp BP Pulse Ox O2 Del Method O2 Flow Rate 97.9 F 92 18 134/78 H 94 Room Air 2 05/29/23 09:14 05/29/23 09:14 05/29/23 09:14 05/29/23 09:14 05/29/23 10:56 05/29/23 10:24 05/29/23 07:03 Oxygen Flow Rate (L/min) 2 Oxygen Delivery Method Room Air Weight: 180 lb 5.41 oz Body Mass Index (BMI) 36.4 Intake & Output: Intake and Output for Last 24 Hours 05/27/23 05/28/23 05/29/23 23:59 23:59 23:59 Intake Total 930 / 1170 930 / 1170 480 / 480 Output Total 2 / Balance 930 / 1170 928 / 1168 480 / 480 Lab / Micro Data 05/29/23 06:28 05/29/23 06:28 Labs: Laboratory Results - last 24 hr 05/29/23 06:28: WBC 7.8, RBC 4.16 L, Hgb 12.7, Hct 39.0, MCV 93.8, MCH 30.5, MCHC 32.6, RDW Std Deviation 57.0 H, RDW Coeff of Ryan 16.8 H, Plt Count 69 L, MPV TNP, Immature Gran % (Auto) 1.500 H, Neut % (Auto) 67.2, Lymph % (Auto) 15.5 L, [place] % (Auto) 12.3 H, Eos % (Auto) 2.7, Baso % (Auto) 0.8, Absolute Neuts (auto) 5.3, Absolute Lymphs (auto) 1.21, Nucleated RBC % 1.7, Sodium 140, Potassium 3.5, Chloride 111 H, Carbon Dioxide 26.0, Anion Gap 3 L, BUN 27 H, Creatinine 0.82, Estim Creat Clear Calc 49.25, Est GFR (MDRD) Af Amer 86, Est GFR (MDRD) Non-Af 71, BUN/Creatinine Ratio 32.9 H, Glucose 115 H, Calcium 8.5, Magnesium 2.1, Total Bilirubin 1.80 H, AST 131 H, ALT 113 H, Alkaline Phosphatase 224 H, Total Protein 5.9 L, Albumin 2.4 L, Globulin 3.5, Albumin/Globulin Ratio 0.7 L Micro: Microbiology 05/24/23 02:15 Blood Culture (Wb) - Anticubital Left Blood Culture - Final No growth in 5 days. 05/24/23 01:30 Blood Culture (Wb) - Anticubital Left Blood Culture - Final No growth in 5 days. 05/24/23 05:20 Urine, Clean Catch Urine Culture - Final Gram negative faby Physical Exam Const alert, oriented x3, no apparent distress and average body habitus Constitutional Narrative: elderly General Appearance: cooperative, well kempt and well developed Orientation / Consciousness: awake, oriented to person, oriented to place and oriented to time HEENT normocephalic, head/scalp atraumatic, hearing grossly normal bilaterally, moist oral mucous membranes and oropharynx normal Eyes PERRL, EOMs intact bilaterally and conjunctivae normal Neck no lymphadenopathy, supple, no JVD, thyroid normal and no carotid bruits General: trachea midline Lymph Lymphatic: no lymphadenopathy noted and no lymphedema noted Resp normal respiratory effort, normal air movement, no retractions, no use of accessory muscles and clear to auscultation bilaterally Cardio regular rate, regular rhythm, S1 normal heart sound, S2 normal heart sound, no murmurs, no rub and no gallops Cardio Narrative: Heart rate and rhythm is irregular GI normal to inspection, nondistended, normoactive bowel sounds, soft to palpation, non-tender and non-distended Extremity normal to inspection, full ROM, normal capillary refill, no clubbing, cyanosis or edema and no calf tenderness General Extremity: no tenderness to palpation of joints or extremities Skin no rashes or lesions noted General Skin Exam: no breakdown Neuro oriented x3, CN's II-XII intact bilaterally, moves all extremities, no focal motor deficits and no sensory deficits noted Sensorium / Orientation: awake, alert, oriented to person, oriented to place and oriented to time Speech: speech normal Motor Exam: strength 5/5 throughout and general weakness Psych thought process normal, cooperative and affect normal Appearance: appropriate Assessment & Plan Assessment/Plan (1) Hyperbilirubinemia: PLAN: Plan #UTI: on PO keflex. Urine cultures grew E coli. #Hyperbilirubinemia * Liver enzymes have trended downwards slightly today to 1.8. * AST, ALT and ALP have also trended up slightly * S/p cholecystectomy remotely. * Hepatitis panel negative. * MRCP showed hepatomegaly with questionable liver cirrhosis and peripancreatic and hepatoduodenal ligament lymphadenopathy of uncertain etiology * GI on board. 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 Per GI, she may need an upper GI scope if she cannot tolerate a diet. May need a liver biopsy eventually per GI, but that would only be indicated if she was going to go for her therapy as it would not prolong her life. * started on PO lactulose, rifaximin and nadolol per GI. * * #Thrombocytopenia: * platelets are 69 today. * Platelets have largely been normal in the past. * likely due to underlying liver disease #DOUG: Resolved. Creatinine is down to 0.98. #Hypokalemia: resolved. k is 3.5 today. #COPD: Not in exacerbation. Breathing treatments bronchodilators. #CAD s/p CABG and stents: * Did complain of some chest pain. Initial troponin was 124 and essentially remained flat with repeat at 122 and 125. * EKG showed no acute ST changes * Recently had 2D echo on May 24, 2023 which showed EF of 65% and moderately enlarged left atrium as well as stable appearing bioprosthetic aortic valve. * chest pain hasn't recurred and she has remained stable * #Ventricular tachycardia * had a short beat run of vtach. potassium and magnesium WNL * 2D echo done on 05/24/2023 as above * keep K >4 and Mg >2 #Hypothyroidism: On Synthroid #Hyperlipidemia: Lipids held due to elevated liver enzymes. #Benign essential hypertension: On losartan and Lasix. #Chronic A-fib: On Eliquis DVT prophylaxis: SCDs due to thrombocytopenia. Charges/Coding Visit Charges Inpatient E&M: 87352 Subs Hosp L2
--- NOTE | 2023-05-29 18:27 | CASEMGMT ---
ANNAMARIE CM: Call received from [facility] on behalf of [facility] to state pt has been denied for SNF LOC. A P2P option is being provided which is due by 1100 on Friday, 05/30. Phone # option #5. . Dr. Johns notified via Backline. Iliana Camara RN AC
--- NOTE | 2023-05-29 19:50 | NURSING ---
While doing assessment pt stated that she would like to sleep early, so would also like to have meds given early.
[2023-05-29] MEDS: Furosemide 40 MG Tablet PO (20:51)
[2023-05-29] MEDS: Potassium Chloride Oral Tablet 10 MEQ PO (20:52)
[2023-05-30] VITALS (12 sets, daily range): BP systolic 90–118; BP diastolic 53–79; PULSE 81–99; RESP 15–20; TEMP 35.7–36.2; O2SAT 91–95; BMI 36.8
[2023-05-30] MEDS: Levothyroxine 88 MCG Tablet PO (05:31)
[2023-05-30 06:08] LABS: Absolute Lymphocyte Count 1.67 X10^3/uL (0.83-4.51); Basophil# 0.05 X10^3/uL; Basophil% 0.6 % (0-1); Eosinophil# 0.17 X10^3/uL; Eosinophils% 1.9 % (0-5); Hemoglobin 12.9 g/dL (12.0-15.0); Lymphocyte # 1.67 X10^3/ul (0.83-4.51); Lymphocyte % 18.4 % (19-41); Mean Corp Hgb Conc 33.1 g/dL (32-36); Mean Corpuscular Hgb 30.8 pg (27.0-32.0); Mean Corpuscular Volume 93.1 fL (81-99); Mean Platelet Vol. 13.6 fl (6.2-12.0); Monocyte# 1.03 X10^3/uL; Monocyte% 11.4 % (0-10); NRBC Flagged by Analyzer 1.1 % (0-5); Neutrophil # 6.04 X10^3/uL (2.7-7.7); Neutrophil % 66.6 % (47-70); POSITIVE COUNT YES; Platelet Count 82 K/mm3 (150-450); RBC Distribution Width CV 16.8 % (11.6-14.6); RBC Distribution Width SD 55.8 fl (35.1-43.9); Red Blood Count 4.19 M/mm3 (4.2-5.4); White Blood Count 9.1 K/mm3 (4.4-11.0)
[2023-05-30 06:40] LABS: ALB/GLOB Ratio 0.7 RATIO (0.9-2.4); AST(SGOT) 136 U/L (15-37); Alanine Aminotransfer ALT/SGPT 116 U/L (13-56); Albumin, Serum 2.5 g/dL (3.2-5.0); Alkaline Phosphatase 231 U/L (45-117); Anion Gap 6 (5-15); BUN 23 mg/dL (7-18); BUN/Creat Ratio 25.7 RATIO (10-20); Calcium,Total 8.5 mg/dL (8.5-10.1); Chloride 105 mmol/L (98-107); Creatinine, Serum 0.89 mg/dL (0.55-1.02); EST Glomerular Filtration Rate 64 mL/min (>60); Est Glom Filt Rate - Afr Amer 77 mL/min (>60); Estimated Creatinine Clearance 45.65 ml/min; Globulin 3.5 g/dL (2.2-4.2); Glucose 101 mg/dL (74-106); Potassium 3.4 mmol/L (3.5-5.1); Sodium Level 137 mmol/L (136-145)
--- NOTE | 2023-05-30 07:22 | EX.PCM.CONCC ---
Assessment & Plan Assessment/Plan (1) Hyperbilirubinemia: (2) UTI (urinary tract infection): PLAN: Plan RECOMMENDATIONS: 1. Stop IV steroids and transition to prednisone 40 mg daily x 5 days. 2. Start scheduled DuoNebs and budesonide. 3. Diuretics per hospitalist. 4. PAP therapy per home regimen. 5. Follow-up with Dr. Bowers in the pulmonary medicine clinic as scheduled. 6. At discharge, recommend discontinuation of Arnuity with transition to Breo Ellipta one puff daily. Therefore, at discharge, the patient's inhaler regimen should include Breo Ellipta 1 puff daily and Spiriva Respimat 2 puffs daily. Will sign off at this time. Please call with any additional questions. IMPRESSIONS: 1. COPD/asthma overlap syndrome The patient is currently followed by Dr. Bowers in the pulmonary medicine clinic and was last seen by our nurse practitioner on May 20, following treatment for an exacerbation. The patient was noted to be improved from a respiratory perspective at that time. The patient reported to me that she is currently utilizing Spiriva Respimat and Arnuity Ellipta daily. In light of her ongoing symptoms and continued utilization of her rescue inhaler, I would recommend that we transition her to Breo Ellipta at discharge. Therefore, at discharge, I would recommend that we discontinue her Arnuity and start her on Breo Ellipta 1 puff daily. She will continue this regimen in conjunction with her Spiriva. I am going to transition her, while in the hospital, to schedule DuoNebs and budesonide. Her IV steroids will be discontinued and transition to prednisone 40 mg daily x 5 days. The patient is stable from a respiratory perspective on room air. She can be discharged home with her other medical issues have resolved and follow-up with Dr. Bowers in the pulmonary medicine clinic, as scheduled, in June. 2. Obstructive sleep apnea Continue nocturnal CPAP therapy with a pressure support of 14 cm of water, per home regimen. 3. E. coli UTI Antimicrobials per hospitalist. 4. History of coronary artery disease status post CABG/hypothyroidism/hyperlipidemia/hypertension/atrial fibrillation/obesity Complicates care, management, recovery and prognosis. Continue home medications as indicated. This note was generated with Unified[employer] software. It may contain incorrect words, spelling, and punctuation that were not noted in checking the note before signing. HPI Consult Data Date of Consult: 05/30/23 HPI Narrative Reason for Consultation: Patient's daughter request because she sees them outpatient HPI Narrative: The patient is an 82-year-old female, with a history as outlined below, who presented initially to the emergency department on May 24 with shortness of breath, nausea and vomiting. The patient is currently followed in the pulmonary medicine clinic due to a history of asthma/COPD overlap along with obstructive sleep apnea. She is regularly followed by Dr. Bowers but was last seen by Yenifer Cope on May 20 following completion of a prednisone burst for an exacerbation. The patient, at that time, was noted to be improved from a respiratory perspective. She is currently scheduled to follow-up with Dr. Bowers in the pulmonary medicine clinic in June. The patient reported that she is currently utilizing Spiriva Respimat and Arnuity Ellipta daily. She reports frequent use of her rescue inhaler to provide additional symptom relief. On presentation to the emergency department, the patient was noted to be afebrile and hemodynamically stable. She was maintaining appropriate oxygen saturations on room air. Laboratory evaluation revealed no evidence of a leukocytosis. Platelet count was low at 69,000. Chemistry profile was notable for a creatinine of 1.48 with a normal lactate. Total bili was elevated at 2.3 with an AST of 137, ALT of 163 and alkaline phosphatase of 215. Urine analysis was positive for nitrites, leukocyte esterase and 3+ urine bacteria. The patient's hospital course has included workup of her hyperbilirubinemia which revealed micronodular cirrhosis on MRCP. Gastroenterology is currently following. Her acute kidney injury has resolved. She has been treated with Keflex for an E. coli UTI. This morning, the patient reports some residual wheezing and shortness of breath. [facility] Medical History Afib Atherosclerosis of coronary artery bypass graft without angina pectoris Atherosclerosis of coronary artery of [place] heart without angina pectoris Carotid artery stenosis CHF (congestive heart failure) Chronic anemia COPD with acute exacerbation Degeneration of intervertebral disc of lumbosacral region Depression Dyspnea Essential hypertension GERD (gastroesophageal reflux disease) GI bleed (~02/16/16) History of GI bleed (02/2016) History of non-ST elevation myocardial infarction (NSTEMI) (06/24/05) HLD (hyperlipidemia) Hypothyroidism Left bundle branch block Lumbar facet arthropathy Lumbosacral spondylosis Non-rheumatic aortic stenosis Obesity Old myocardial infarction ALMA (obstructive sleep apnea) Persistent atrial fibrillation Scarlet fever Severe aortic stenosis Thrombocytopenia Thyroid nodule Home Medications levothyroxine 88 mcg tablet 88 mcg PO DAILY 11/23/13 [History Last Taken 03/19/22] multivitamin-ferrous fumarate-folic acid 18 mg-400 mcg tablet 1 ea PO DAILY 02/07/17 [History Last Taken Unknown] calcium carbonate 500 mg-vitamin D3 5 mcg (200 unit) tablet (Os-Christian 500 + D3) 1 tab PO BID 11/28/17 [History Last Taken Unknown] magnesium oxide 400 mg (241.3 mg magnesium) tablet (MagOx) 400 mg PO DAILY 12/31/18 [History Last Taken Unknown] Disability Parking Placard #1 ea 05/30/20 [Rx Last Taken Unknown] aspirin 81 mg tablet,delayed release (Adult Aspirin Regimen) 81 mg PO DAILY 05/02/22 [History Last Taken Unknown] isosorbide mononitrate 20 mg tablet See Rx Instructions .Route .COMPLEX #180 tabs 06/10/22 [Rx Last Taken Unknown] tiotropium 2.5 mcg-olodaterol 2.5 mcg/actuation mist for inhalation (Stiolto Respimat) 2 inh inhalation DAILY #4 grams 10/28/22 [Rx Last Taken Unknown] apixaban 5 mg tablet (Eliquis) 5 mg PO BID #60 tabs 12/10/22 [Rx Last Taken Unknown] nitroglycerin 0.4 mg sublingual tablet See Rx Instructions .Route .COMPLEX #25 tabs 04/02/23 [Rx Last Taken Unknown] albuterol sulfate 90 mcg/actuation aerosol inhaler (Ventolin HFA) 2 puff inhalation Q4H PRN shortness of breath or wheezing #18 grams 04/08/23 [Rx Last Taken Unknown] losartan 50 mg tablet 50 mg PO DAILY #90 tabs 04/08/23 [Rx Last Taken Unknown] pantoprazole 40 mg tablet,delayed release 40 mg PO DAILY #90 tabs 04/08/23 [Rx Last Taken Unknown] albuterol sulfate 2.5 mg/3 mL (0.083 %) solution for nebulization 2.5 mg (3 mL) inhalation Q4H PRN Sob &/Or Wheezing #180 mL 05/08/23 [Rx Last Taken Unknown] furosemide 20 mg tablet 40 mg PO BID Swelling 05/08/23 [History Last Taken Unknown] potassium chloride 10 mEq tablet,extended release 10 meq PO BID When you take Lasix for swelling 05/08/23 [History Last Taken Unknown] fluticasone furoate 200 mcg/actuation blister powder for inhalation (Arnuity Ellipta) 1 inh inhalation QDAY #30 ea 05/12/23 [Rx Last Taken Unknown] rosuvastatin 20 mg tablet 40 mg PO DAILY cholesterol 05/24/23 [History Last Taken Unknown] Allergy/AdvReac Type Severity Reaction Status Date / Time adhesive AdvReac Rash Verified 05/20/23 12:46 nickel AdvReac Rash Verified 05/20/23 12:46 wool AdvReac Rash Verified 05/20/23 12:46 Family History Mother CAD (coronary artery disease) Hypertension Alzheimer disease Daughter CAD (coronary artery disease) Myocardial infarction Sister Breast cancer Myocardial infarction Brother Myocardial infarction Father CVA (cerebral vascular accident) Heart disease Hypertension Aneurysm and dissection of heart Surgical History H/O aortic valve replacement (01/31/16) History of aortic valve replacement with bioprosthetic valve (~01/31/16) History of cardiac catheterization (~2015) History of cataract extraction (~2008) History of colonoscopy (~2007) History of colonoscopy (~2015) History of electrophysiologic study (02/02/16) History of hysterectomy History of inguinal herniorrhaphy History of lumpectomy of left breast History of partial thyroidectomy (~2008) History of squamous cell carcinoma excision Hx of cholecystectomy Previous back surgery S/P CABG x 2 (10/22/05) S/P CABG x 3 (~1986) Status post Mohs surgery for basal cell carcinoma (~2007) Stented coronary artery (~06/24/05) Social History Smoking Status: Former smoker quit date: 04/07/02 pack-years: 35 second hand exposure: No alcohol intake: never substance use type: does not use caffeine: Yes Type: coffee Number of servings: 2 ROS ROS Narrative 10 systems were reviewed with pertinent positives as noted in the HPI above. Physical Exam Const alert and no apparent distress Constitutional Narrative: Resting comfortably in bed. Obese. General Appearance: cooperative HEENT normocephalic and head/scalp atraumatic Eyes PERRL, EOMs intact bilaterally and conjunctivae normal Neck supple General: trachea midline Chest inspection of chest normal Resp normal respiratory effort Resp Narrative: Mild expiratory wheeze. Cardio regular rate and regular rhythm GI normal to inspection, nondistended, normoactive bowel sounds Extremity no clubbing, cyanosis or edema Skin no rashes or lesions noted Neuro oriented x3, CN's II-XII intact bilaterally and moves all extremities Psych cooperative and affect normal Lab / Micro Data 05/30/23 05:55 05/30/23 05:55 Labs: Laboratory Results - last 24 hr 05/29/23 06:28: Magnesium 2.1 05/30/23 05:55: WBC 9.1, RBC 4.19 L, Hgb 12.9, Hct 39.0, MCV 93.1, MCH 30.8, MCHC 33.1, RDW Std Deviation 55.8 H, RDW Coeff of Ryan 16.8 H, Plt Count 82 L, MPV 13.6 H, Immature Gran % (Auto) 1.100 H, Neut % (Auto) 66.6, Lymph % (Auto) 18.4 L, [place] % (Auto) 11.4 H, Eos % (Auto) 1.9, Baso % (Auto) 0.6, Absolute Neuts (auto) 6.0, Absolute Lymphs (auto) 1.67, Nucleated RBC % 1.1, Sodium 137, Potassium 3.4 L, Chloride 105, Carbon Dioxide 26.0, Anion Gap 6, BUN 23 H, Creatinine 0.89, Estim Creat Clear Calc 45.65, Est GFR (MDRD) Af Amer 77, Est GFR (MDRD) Non-Af 64, BUN/Creatinine Ratio 25.7 H, Glucose 101, Calcium 8.5, Total Bilirubin 1.90 H, AST 136 H, ALT 116 H, Alkaline Phosphatase 231 H, Total Protein 6.0 L, Albumin 2.5 L, Globulin 3.5, Albumin/Globulin Ratio 0.7 L Micro: Microbiology 05/24/23 02:15 Blood Culture (Wb) - Anticubital Left Blood Culture - Final No growth in 5 days. 05/24/23 01:30 Blood Culture (Wb) - Anticubital Left Blood Culture - Final No growth in 5 days. Charges/Coding Visit Charges Inpatient E&M: 02533 Init Hosp L3
[2023-05-30] MEDS: Ipratropium/Albuterol Sulfate 3 ML AMPUL.NEB INHALATION ×5 (07:25→23:11)
--- NOTE | 2023-05-30 07:25 | CASEMGMT ---
Insurance is requesting a peer to peer. SW will notify physician to see if she would like to do a peer to peer. Meenakshi TRAN
--- NOTE | 2023-05-30 07:56 | PCM.CONS.C ---
Assessment & Plan Assessment/Plan (1) NSVT (nonsustained ventricular tachycardia): PLAN: Patient presents and is noted in the computer to have a wide-complex tachycardia. This could be aberrancy or nonsustained ventricular tachyarrhythmia. My recommendation at this time will be to optimize medical therapy with a beta-sadie and keep potassium over 4 and magnesium over 2. Even though she is on nadolol for her cirrhosis we could add Toprol-XL 50 mg a day to her regimen. (2) History of aortic valve replacement with bioprosthetic valve: PLAN: He does have a history of aortic valve replacement which appears to be stable at this particular time no major changes will be made antibiotic prophylaxis will continue. (3) S/P CABG x 2: PLAN: Patient is status post coronary bypass surgery. She did have a stress test which was abnormal. Will need to discuss with the family as to what the eventual plan was. She may need at some point when she is stable to undergo a cardiac catheterization to evaluate the above if invasive therapy is entertained. (4) Stented coronary artery: PLAN: She does have previous stenting of the saphenous vein graft. I suspect this is the area subtended by the inferior and inferolateral perfusion defect. (5) Persistent atrial fibrillation: PLAN: She does have persistent atrial fibrillation with a controlled ventricular response rate. Plan is to continue the current medical therapy with rate control. Issue of anticoagulation will need to be evaluated based on her overall clinical condition. I will suggest adding Toprol-XL 50 mg a day to her current regimen. HPI Consult Data Date of Consult: 05/30/23 HPI Narrative HPI Narrative: LOUIS BOWERS, is a 82 F who presented initially with nausea and vomiting and back discomfort. She has a past medical history of essential hypertension; on Losartan and Lasix, hyperlipidemia, hypothyroidism; with history of partial thyroidectomy (~2008), obesity; with BMI of 33.6 this admission, obstructive sleep apnea, chronic atrial fibrillation; on Eliquis, chronic left bundle branch block, history of tobacco abuse; with subsequent COPD, coronary artery disease; status post OR with CABG x 3 (~1986) with redo x 2 (2005) with a saphenous vein graft to the obtuse marginal branch and a saphenous vein graft to posterior descending artery. The BRUCE to the LAD which was previously placed was preserved. In addition she underwent coronary artery stent (2005), history of severe nonrheumatic aortic stenosis; s/p bioprosthetic aortic valve replacement (2015), history of carotid artery stenosis, history of GI bleed (2015) , history of cholecystectomy (1988), history of lumpectomy of the left breast, history of squamous cell carcinoma; status post excision, history of Mohs surgery for basal cell carcinoma (~2007), chronic anemia, depression, GERD who presents to [facility] ER complaining of shortness of breath and back pain with nausea and vomiting. Ms. Bowers reports her symptoms began approximately 6 weeks prior to admission with a gradual onset of progressively worsening shortness of breath and back pain. During this admission it appears that she has been diagnosed with a urinary tract infection as well as having noted to have elevated liver enzymes and elevated creatinine levels the latter which has since resolved. She has been seen by GI, pulmonology and was diagnosed with micronodular cirrhosis of the liver. While on admission she was noted to have a 6 beat run of wide-complex tachycardia. Potassium and magnesium were checked and have been replaced to be within normal limits and echocardiogram was performed which demonstrated preserved ejection fraction of 60 to 65% with a stable bioprosthetic aortic valve. Interestingly she was at [facility] in March and underwent a pharmacologic myocardial perfusion stress test which demonstrated an apical fixed defect, an EF of 66%, and a large size with moderate reversibility defect noted in the inferior and inferolateral segments. It is not clear what was done about this or with this results. At this particular time she denies any cardiac complaints has had no dizziness or diaphoresis near syncope or syncope. [facility] Medical History Afib Atherosclerosis of coronary artery bypass graft without angina pectoris Atherosclerosis of coronary artery of [place] heart without angina pectoris Carotid artery stenosis CHF (congestive heart failure) Chronic anemia COPD with acute exacerbation Degeneration of intervertebral disc of lumbosacral region Depression Dyspnea Essential hypertension GERD (gastroesophageal reflux disease) GI bleed (~02/16/16) History of GI bleed (02/2016) History of non-ST elevation myocardial infarction (NSTEMI) (06/24/05) HLD (hyperlipidemia) Hypothyroidism Left bundle branch block Lumbar facet arthropathy Lumbosacral spondylosis Non-rheumatic aortic stenosis Obesity Old myocardial infarction ALMA (obstructive sleep apnea) Persistent atrial fibrillation Scarlet fever Severe aortic stenosis Thrombocytopenia Thyroid nodule Home Medications levothyroxine 88 mcg tablet 88 mcg PO DAILY 11/23/13 [History Last Taken 03/19/22] multivitamin-ferrous fumarate-folic acid 18 mg-400 mcg tablet 1 ea PO DAILY 02/07/17 [History Last Taken Unknown] calcium carbonate 500 mg-vitamin D3 5 mcg (200 unit) tablet (Os-Christian 500 + D3) 1 tab PO BID 11/28/17 [History Last Taken Unknown] magnesium oxide 400 mg (241.3 mg magnesium) tablet (MagOx) 400 mg PO DAILY 12/31/18 [History Last Taken Unknown] Disability Parking Placard #1 ea 05/30/20 [Rx Last Taken Unknown] aspirin 81 mg tablet,delayed release (Adult Aspirin Regimen) 81 mg PO DAILY 05/02/22 [History Last Taken Unknown] isosorbide mononitrate 20 mg tablet See Rx Instructions .Route .COMPLEX #180 tabs 06/10/22 [Rx Last Taken Unknown] tiotropium 2.5 mcg-olodaterol 2.5 mcg/actuation mist for inhalation (Stiolto Respimat) 2 inh inhalation DAILY #4 grams 10/28/22 [Rx Last Taken Unknown] apixaban 5 mg tablet (Eliquis) 5 mg PO BID #60 tabs 12/10/22 [Rx Last Taken Unknown] nitroglycerin 0.4 mg sublingual tablet See Rx Instructions .Route .COMPLEX #25 tabs 04/02/23 [Rx Last Taken Unknown] albuterol sulfate 90 mcg/actuation aerosol inhaler (Ventolin HFA) 2 puff inhalation Q4H PRN shortness of breath or wheezing #18 grams 04/08/23 [Rx Last Taken Unknown] losartan 50 mg tablet 50 mg PO DAILY #90 tabs 04/08/23 [Rx Last Taken Unknown] pantoprazole 40 mg tablet,delayed release 40 mg PO DAILY #90 tabs 04/08/23 [Rx Last Taken Unknown] albuterol sulfate 2.5 mg/3 mL (0.083 %) solution for nebulization 2.5 mg (3 mL) inhalation Q4H PRN Sob &/Or Wheezing #180 mL 05/08/23 [Rx Last Taken Unknown] furosemide 20 mg tablet 40 mg PO BID Swelling 05/08/23 [History Last Taken Unknown] potassium chloride 10 mEq tablet,extended release 10 meq PO BID When you take Lasix for swelling 05/08/23 [History Last Taken Unknown] fluticasone furoate 200 mcg/actuation blister powder for inhalation (Arnuity Ellipta) 1 inh inhalation QDAY #30 ea 05/12/23 [Rx Last Taken Unknown] rosuvastatin 20 mg tablet 40 mg PO DAILY cholesterol 05/24/23 [History Last Taken Unknown] Allergy/AdvReac Type Severity Reaction Status Date / Time adhesive AdvReac Rash Verified 05/20/23 12:46 nickel AdvReac Rash Verified 05/20/23 12:46 wool AdvReac Rash Verified 05/20/23 12:46 Family History Mother CAD (coronary artery disease) Hypertension Alzheimer disease Daughter CAD (coronary artery disease) Myocardial infarction Sister Breast cancer Myocardial infarction Brother Myocardial infarction Father CVA (cerebral vascular accident) Heart disease Hypertension Aneurysm and dissection of heart Surgical History H/O aortic valve replacement (01/31/16) History of aortic valve replacement with bioprosthetic valve (~01/31/16) History of cardiac catheterization (~2015) History of cataract extraction (~2008) History of colonoscopy (~2007) History of colonoscopy (~2015) History of electrophysiologic study (02/02/16) History of hysterectomy History of inguinal herniorrhaphy History of lumpectomy of left breast History of partial thyroidectomy (~2008) History of squamous cell carcinoma excision Hx of cholecystectomy Previous back surgery S/P CABG x 2 (10/22/05) S/P CABG x 3 (~1986) Status post Mohs surgery for basal cell carcinoma (~2007) Stented coronary artery (~06/24/05) Social History Smoking Status: Former smoker quit date: 04/07/02 pack-years: 35 second hand exposure: No alcohol intake: never substance use type: does not use caffeine: Yes Type: coffee Number of servings: 2 Physical Exam Const alert, oriented x3 and no apparent distress General Appearance: cooperative HEENT hearing grossly normal bilaterally Head and Scalp: atraumatic Eyes EOMs intact bilaterally Neck General: normal visual inspection Chest inspection of chest normal and palpation of chest normal Resp normal respiratory effort Auscultation: clear to auscultation bilaterally Cardio regular rate, regular rhythm, S1 normal heart sound and S2 normal heart sound Jugular Venous Distention: JVD GI normal to inspection, nondistended, normoactive bowel sounds Extremity normal capillary refill and no pedal edema Peripheral Pulses: Yes pulses 2+ throughout and femoral pulses present Skin no rashes or lesions noted Neuro oriented x3 and CN's II-XII intact bilaterally Psych Appearance: grossly normal and appropriate Risk Stratification Risk Stratification Applicable: No Objective Data Vital Signs: Vital Signs Temp Pulse Resp BP Pulse Ox O2 Del Method O2 Flow Rate 96.2 F L 99 18 118/71 94 Room Air 2 05/30/23 02:45 05/30/23 02:45 05/30/23 02:45 05/30/23 02:45 05/30/23 02:45 05/30/23 02:45 05/29/23 07:03 Oxygen Flow Rate (L/min) 2 Oxygen Delivery Method Room Air Weight: 182 lb 5.156 oz Body Mass Index (BMI) 36.8 Intake & Output: Intake and Output for Last 24 Hours 05/28/23 05/29/23 05/30/23 23:59 23:59 23:59 Intake Total 930 / 1170 680 / 680 100 / 100 Output Total 2 / 2 Balance 928 / 1168 680 / 680 100 / 100 Lab / Micro Data 05/30/23 05:55 05/30/23 05:55 Labs: Laboratory Results - last 24 hr 05/29/23 06:28: Magnesium 2.1 05/30/23 05:55: WBC 9.1, RBC 4.19 L, Hgb 12.9, Hct 39.0, MCV 93.1, MCH 30.8, MCHC 33.1, RDW Std Deviation 55.8 H, RDW Coeff of Ryan 16.8 H, Plt Count 82 L, MPV 13.6 H, Immature Gran % (Auto) 1.100 H, Neut % (Auto) 66.6, Lymph % (Auto) 18.4 L, [place] % (Auto) 11.4 H, Eos % (Auto) 1.9, Baso % (Auto) 0.6, Absolute Neuts (auto) 6.0, Absolute Lymphs (auto) 1.67, Nucleated RBC % 1.1, Sodium 137, Potassium 3.4 L, Chloride 105, Carbon Dioxide 26.0, Anion Gap 6, BUN 23 H, Creatinine 0.89, Estim Creat Clear Calc 45.65, Est GFR (MDRD) Af Amer 77, Est GFR (MDRD) Non-Af 64, BUN/Creatinine Ratio 25.7 H, Glucose 101, Calcium 8.5, Total Bilirubin 1.90 H, AST 136 H, ALT 116 H, Alkaline Phosphatase 231 H, Total Protein 6.0 L, Albumin 2.5 L, Globulin 3.5, Albumin/Globulin Ratio 0.7 L Micro: Microbiology 05/24/23 02:15 Blood Culture (Wb) - Anticubital Left Blood Culture - Final No growth in 5 days. 05/24/23 01:30 Blood Culture (Wb) - Anticubital Left Blood Culture - Final No growth in 5 days. Cardiology Labs/Tests 05/29/23 06:28: Magnesium 2.1 05/30/23 05:55: WBC 9.1, RBC 4.19 L, Hgb 12.9, Hct 39.0, MCV 93.1, MCH 30.8, MCHC 33.1, Plt Count 82 L, MPV 13.6 H, Immature Gran % (Auto) 1.100 H, Neut % (Auto) 66.6, Lymph % (Auto) 18.4 L, [place] % (Auto) 11.4 H, Eos % (Auto) 1.9, Baso % (Auto) 0.6, Absolute Neuts (auto) 6.0, Nucleated RBC % 1.1, Sodium 137, Potassium 3.4 L, Chloride 105, Carbon Dioxide 26.0, Anion Gap 6, BUN 23 H, Creatinine 0.89, Est GFR (MDRD) Af Amer 77, Est GFR (MDRD) Non-Af 64, BUN/Creatinine Ratio 25.7 H, Glucose 101, Calcium 8.5, Total Bilirubin 1.90 H Rhythm: EKG: ECHO: Stress Test: Cardiac Cath: PCI: CT Surgery: Holter monitor: EPS: PPM: CXR: Chest CT Scan:
[2023-05-30] MEDS: 0.9% Saline Lock 10 ML Syringe IV (08:00)
[2023-05-30] MEDS: Calcium Carb/Vitamin D 1 TABLET Tablet PO ×2 (08:01→20:16)
[2023-05-30] MEDS: Cephalexin 500 MG Capsule PO ×2 (08:01→20:17)
[2023-05-30] MEDS: APIXABAN 5 MG TABLET PO ×2 (08:01→20:15)
[2023-05-30] MEDS: Aspirin E.C. 81 MG Tablet PO (08:02)
[2023-05-30] MEDS: Magnesium Chloride 64 MG Delay Rel.Tablet 128 MG PO (08:02)
[2023-05-30] MEDS: Multivitamins,Ther W-Minerals Tablet 1 TABLET PO (08:02)
[2023-05-30] MEDS: Pantoprazole Sodium 40 MG Tablet PO (08:02)
[2023-05-30] MEDS: Nadolol 20 MG Tablet 10 MG PO ×2 (08:03→20:14)
[2023-05-30] MEDS: Isosorbide Mononitrate 20 MG Tablet PO ×2 (08:04→20:18)
[2023-05-30] MEDS: Potassium Chloride Oral Tablet 10 MEQ PO ×2 (08:04→20:16)
[2023-05-30] MEDS: Atorvastatin Calcium 80 MG Tablet PO (08:04)
[2023-05-30] MEDS: Losartan Potassium 50 MG Tablet PO (08:05)
[2023-05-30] MEDS: rifAXIMin 550 MG Tablet PO ×2 (08:05→20:15)
[2023-05-30] MEDS: predniSONE 20 MG Tablet 40 MG PO (08:10)
[2023-05-30] MEDS: Furosemide 40 MG Tablet PO ×2 (08:11→20:17)
--- NOTE | 2023-05-30 09:16 | CASEMGMT ---
Physician will do a peer to peer. MALINA called number given by insurance ([phone] option 5). SW notified physician. Meenakshi TRAN
[2023-05-30] MEDS: Potassium Chloride Oral Tablet 20 MEQ 40 MEQ PO (10:21)
--- NOTE | 2023-05-30 10:36 | PN_ITS ---
Subjective Subjective Patient seen and examined. She says she felt tired this morning but had no other complaints. She had an uneventful night and review of systems otherwise negative. She is on room air. Patient was denied SNF placement by insurance. Did not appear to be today. Objective Data Objective Data Vital Signs: Vital Signs Temp Pulse Resp BP Pulse Ox O2 Del Method O2 Flow Rate 97.2 F L 81 18 103/79 95 Room Air 2 05/30/23 07:59 05/30/23 07:59 05/30/23 07:59 05/30/23 07:59 05/30/23 07:59 05/30/23 10:00 05/29/23 07:03 Oxygen Flow Rate (L/min) 2 Oxygen Delivery Method Room Air Weight: 182 lb 5.156 oz Body Mass Index (BMI) 36.8 Intake & Output: Intake and Output for Last 24 Hours 05/28/23 05/29/23 05/30/23 23:59 23:59 23:59 Intake Total 930 / 1170 680 / 680 100 / 100 Output Total 2 / 2 Balance 928 / 1168 680 / 680 100 / 100 Lab / Micro Data 05/30/23 05:55 05/30/23 05:55 Labs: Laboratory Results - last 24 hr 05/29/23 06:28: Magnesium 2.1 05/30/23 05:55: WBC 9.1, RBC 4.19 L, Hgb 12.9, Hct 39.0, MCV 93.1, MCH 30.8, MCHC 33.1, RDW Std Deviation 55.8 H, RDW Coeff of Ryan 16.8 H, Plt Count 82 L, MPV 13.6 H, Immature Gran % (Auto) 1.100 H, Neut % (Auto) 66.6, Lymph % (Auto) 18.4 L, [place] % (Auto) 11.4 H, Eos % (Auto) 1.9, Baso % (Auto) 0.6, Absolute Neuts (auto) 6.0, Absolute Lymphs (auto) 1.67, Nucleated RBC % 1.1, Sodium 137, Potassium 3.4 L, Chloride 105, Carbon Dioxide 26.0, Anion Gap 6, BUN 23 H, Creatinine 0.89, Estim Creat Clear Calc 45.65, Est GFR (MDRD) Af Amer 77, Est GFR (MDRD) Non-Af 64, BUN/Creatinine Ratio 25.7 H, Glucose 101, Calcium 8.5, Total Bilirubin 1.90 H, AST 136 H, ALT 116 H, Alkaline Phosphatase 231 H, Total Protein 6.0 L, Albumin 2.5 L, Globulin 3.5, Albumin/Globulin Ratio 0.7 L Micro: Microbiology 05/24/23 02:15 Blood Culture (Wb) - Anticubital Left Blood Culture - Final No growth in 5 days. 05/24/23 01:30 Blood Culture (Wb) - Anticubital Left Blood Culture - Final No growth in 5 days. 05/24/23 05:20 Urine, Clean Catch Urine Culture - Final Gram negative afby Physical Exam Const alert, oriented x3 and no apparent distress Constitutional Narrative: elderly General Appearance: cooperative, well kempt and well developed Orientation / Consciousness: awake, oriented to person, oriented to place and oriented to time HEENT normocephalic, head/scalp atraumatic, hearing grossly normal bilaterally, moist oral mucous membranes and oropharynx normal Eyes PERRL, EOMs intact bilaterally and conjunctivae normal Neck no lymphadenopathy, supple, no JVD, thyroid normal and no carotid bruits General: trachea midline Lymph Lymphatic: no lymphadenopathy noted and no lymphedema noted Resp normal respiratory effort, normal air movement, no retractions, no use of accessory muscles and clear to auscultation bilaterally Auscultation: Negative for rales, rhonchi or wheezes Cardio regular rate, regular rhythm, S1 normal heart sound, S2 normal heart sound, no murmurs, no rub and no gallops GI normal to inspection, nondistended, normoactive bowel sounds, soft to palpation, non-tender and non-distended GI Narrative: obese abdomen Extremity normal to inspection, full ROM, normal capillary refill, no clubbing, cyanosis or edema and no calf tenderness General Extremity: no tenderness to palpation of joints or extremities Skin no rashes or lesions noted Skin Narrative: General Skin Exam: no breakdown Neuro oriented x3, CN's II-XII intact bilaterally, moves all extremities, no focal motor deficits and no sensory deficits noted Sensorium / Orientation: awake, alert, oriented to person, oriented to place and oriented to time Speech: speech normal Motor Exam: strength 5/5 throughout and general weakness Psych thought process normal, cooperative and affect normal Appearance: appropriate Assessment & Plan Assessment/Plan (1) Hyperbilirubinemia: PLAN: Plan #UTI: on PO keflex. Urine cultures grew E coli. #Hyperbilirubinemia * bilirubin is 1.9 today. AST and ALT as well as ALP have plateaud * AST, ALT and ALP have also trended up slightly * S/p cholecystectomy remotely. * Hepatitis panel negative. * MRCP showed hepatomegaly with questionable liver cirrhosis and peripancreatic and hepatoduodenal ligament lymphadenopathy of uncertain etiology * GI on board. 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 Per GI, she may need an upper GI scope if she cannot tolerate a diet. May need a liver biopsy eventually per GI, but that would only be indicated if she was going to go for her therapy as it would not prolong her life. * on PO lactulose, rifaximin and nadolol per GI. * * #Thrombocytopenia: * platelets areup to 82 from 69 yesterday * Platelets have largely been normal in the past. * likely due to underlying liver disease #DOUG: Resolved. #Hypokalemia: resolved. k is 3.5 today. #COPD: Not in exacerbation. Breathing treatments bronchodilators. #CAD s/p CABG and stents: * Did complain of some chest pain. Initial troponin was 124 and essentially remained flat with repeat at 122 and 125. * EKG showed no acute ST changes * Recently had 2D echo on May 24, 2023 which showed EF of 65% and moderately enlarged left atrium as well as stable appearing bioprosthetic aortic valve. * chest pain hasn't recurred and she has remained stable * #Nonsustained Ventricular tachycardia * had a short beat run of vtach. potassium and magnesium WNL * 2D echo done on 05/24/2023 as above * keep K >4 and Mg >2 * it turns out patient had an abnormal stress test done in [place] in March 2023. According to patient she says it was in proportion for her carotid artery surgery. Stress test without global and so she did not have surgery. Patient tells me she does not think she had a cardiac cath describes a procedure where it appears that she had a cardiac cath and was told that there was nothing much else that could be done for her. Will request for records from [facility] to ascertain the veracity of this. * Per cardiology to start on p.o. metoprolol XL 50 mg daily. #Hypothyroidism: On Synthroid #Hyperlipidemia: Lipids held due to elevated liver enzymes. #Benign essential hypertension: On losartan and Lasix. #Chronic A-fib: On Eliquis DVT prophylaxis: SCDs due to thrombocytopenia. Disposition: To do peer to peer with insurance company today to evaluate for placement. Charges/Coding Visit Charges Inpatient E&M: 68236 Subs Hosp L2
--- NOTE | 2023-05-30 13:08 | CASEMGMT ---
Physician did peer to peer and patient was still denied. SW called patient's daughter Renata. SW introduced self and role at [facility]. SW explained insurance did deny patient. SW also explained a peer to peer and the physician did complete this. However, patient is still being denied. SW answered Renata's questions. Renata asked when she has to have patient out of the hospital. MALINA let Renata know the physician has not said when she plans on discharging patient. MALINA explained in rounds this am physician did ask for records from [facility] regarding patient's heart cath. Renata said she will be in after work. Meenakshi Montero [employer]IPMENT [employer]IVER CHELSEA
--- NOTE | 2023-05-30 15:23 | CASEMGMT ---
Addendum entered by Chanelle Meng 05/30/23 15:44: [facility] declined. Patient chose [facility]. All agencies as well as RN CM updated. Chanelle Meng, Discharge Planning Asst. Original Note: Discharge Planning HH referral sent via [facility] to [facility], and [facility]. Chanelle Meng, Discharge Planning Asst.
--- NOTE | 2023-05-30 15:53 | CASEMGMT ---
SW met with patient and her daughter Renata. SW introduced self and role at [facility]. They picked 3 home health agencies. SW talked with patient and Renata about some of their concerns. Renata requested information on the hospital's van transportation. SW provided them with this information. Plan: d/c home with home health. Meenakshi TRAN
[2023-05-30] MEDS: Lactulose 20 GM/30 ML UDC PO ×2 (16:41→20:14)
[2023-05-30] MEDS: Budesonide Respules 0.5 MG/2 ML AMPUL.NEB. INHALATION (19:18)
[2023-05-31] VITALS (8 sets, daily range): BP systolic 102–109; BP diastolic 57–70; PULSE 87–96; RESP 18–20; TEMP 36.2–36.8; O2SAT 91–95; BMI 36.1
[2023-05-31] MEDS: Ipratropium/Albuterol Sulfate 3 ML AMPUL.NEB INHALATION ×3 (03:33→10:50)
[2023-05-31] MEDS: Levothyroxine 88 MCG Tablet PO (03:55)
[2023-05-31] MEDS: Lactulose 20 GM/30 ML UDC PO (03:55)
[2023-05-31 06:06] LABS: Absolute Lymphocyte Count 1.81 X10^3/uL (0.83-4.51); Absolute Neutrophil Count 7.4 X10^3/uL (2.0-7.7); Basophil# 0.06 X10^3/uL; Basophil% 0.6 % (0-1); Eosinophil# 0.22 X10^3/uL; Hematocrit 39.4 % (37-47); Lymphocyte # 1.81 X10^3/ul (0.83-4.51); Lymphocyte % 16.8 % (19-41); Mean Corpuscular Hgb 30.4 pg (27.0-32.0); Mean Corpuscular Volume 92.1 fL (81-99); Mean Platelet Vol. 13.8 fl (6.2-12.0); Monocyte# 1.14 X10^3/uL; Monocyte% 10.6 % (0-10); Neutrophil # 7.35 X10^3/uL (2.7-7.7); Neutrophil % 68.3 % (47-70); POSITIVE COUNT YES; Platelet Count 90 K/mm3 (150-450); RBC Distribution Width CV 17.1 % (11.6-14.6); RBC Distribution Width SD 55.8 fl (35.1-43.9); Red Blood Count 4.28 M/mm3 (4.2-5.4); White Blood Count 10.8 K/mm3 (4.4-11.0)
[2023-05-31 06:53] LABS: ALB/GLOB Ratio 0.7 RATIO (0.9-2.4); AST(SGOT) 166 U/L (15-37); Alanine Aminotransfer ALT/SGPT 125 U/L (13-56); Albumin, Serum 2.6 g/dL (3.2-5.0); Alkaline Phosphatase 268 U/L (45-117); Anion Gap 6 (5-15); BUN 23 mg/dL (7-18); BUN/Creat Ratio 24.8 RATIO (10-20); Calcium,Total 8.4 mg/dL (8.5-10.1); Chloride 106 mmol/L (98-107); Creatinine, Serum 0.93 mg/dL (0.55-1.02); EST Glomerular Filtration Rate 61 mL/min (>60); Est Glom Filt Rate - Afr Amer 74 mL/min (>60); Estimated Creatinine Clearance 43.28 ml/min; Globulin 3.5 g/dL (2.2-4.2); Glucose 113 mg/dL (74-106); Potassium 3.5 mmol/L (3.5-5.1); Protein, Total 6.1 g/dL (6.4-8.2); Sodium Level 136 mmol/L (136-145)
[2023-05-31] MEDS: Budesonide Respules 0.5 MG/2 ML AMPUL.NEB. INHALATION (07:09)
[2023-05-31] MEDS: Nadolol 20 MG Tablet 10 MG PO (09:18)
[2023-05-31] MEDS: Atorvastatin Calcium 80 MG Tablet PO (09:18)
[2023-05-31] MEDS: Isosorbide Mononitrate 20 MG Tablet PO (09:18)
[2023-05-31] MEDS: Potassium Chloride Oral Tablet 10 MEQ PO (09:18)
[2023-05-31] MEDS: Calcium Carb/Vitamin D 1 TABLET Tablet PO (09:19)
[2023-05-31] MEDS: APIXABAN 5 MG TABLET PO (09:19)
[2023-05-31] MEDS: Pantoprazole Sodium 40 MG Tablet PO (09:19)
[2023-05-31] MEDS: predniSONE 20 MG Tablet 40 MG PO (09:21)
[2023-05-31] MEDS: Magnesium Chloride 64 MG Delay Rel.Tablet 128 MG PO (09:21)
[2023-05-31] MEDS: Multivitamins,Ther W-Minerals Tablet 1 TABLET PO (09:21)
[2023-05-31] MEDS: Aspirin E.C. 81 MG Tablet PO (09:21)
[2023-05-31] MEDS: Furosemide 40 MG Tablet PO (09:21)
[2023-05-31] MEDS: Metoprolol(XL)Succ 50 MG Tablet PO (09:24)
[2023-05-31] MEDS: rifAXIMin 550 MG Tablet PO (09:25)
--- NOTE | 2023-05-31 10:15 | DCINST_ITS ---
Discharge Instructions Diet Discharge Diet: Low fat / Low cholesterol Activity Discharge Activity: Return to Normal Activity Weight Bearing Status: Weight bearing as tolerated Dressing / Incision Call your doctor if you observe: Fever of 101 or Higher, Shortness of breath, Dizziness, Swelling in the ankles and Chest pain Follow Up Care Test Results: Test results from this visit will be discussed in further detail at your follow- up appointment, if applicable. Discharge Plan Admission Admit Date/Time: 05/24/23 06:46 Primary Reason for Your Visit: cirrhosis with hyperbilirubinema Attending Provider: Roseanna Johns Primary Care Provider: Rupert Osullivan Consulting Providers: Tacho Baez; Rafael Silveira; Jerzy Mena Instructions Patient Instructions: NAFLD Discharge Orders/Prescriptions Prescriptions: New metoprolol succinate 50 mg Tablet Extended Release 24 Hr 50 mg PO DAILY Qty: 30 2RF prednisone 20 mg Tablet 40 mg PO BREAKFAST Qty: 10 0RF nadolol 20 mg Tablet 10 mg PO BID Qty: 60 2RF Xifaxan 550 mg Tablet 550 mg PO BID Qty: 60 2RF fluticasone furoate-vilanterol [Breo Ellipta] 100-25 mcg/dose blister with device 1 inh inhalation DAILY Qty: 60 1RF Continued calcium carbonate-vitamin D3 [Os-Christian 500 + D3] 500 mg(1,250mg) -200 unit tablet 1 tab PO BID magnesium oxide [MagOx] 400 mg (241.3 mg magnesium) tablet 400 mg PO DAILY aspirin [Adult Aspirin Regimen] 81 mg tablet,delayed release (DR/EC) 81 mg PO DAILY furosemide 20 mg tablet 40 mg PO BID potassium chloride 10 mEq tablet extended release 10 meq PO BID albuterol sulfate 2.5 mg /3 mL (0.083 %) solution for nebulization 2.5 mg inhalation Q4H PRN (Reason: Sob &/Or Wheezing) Qty: 180 3RF levothyroxine 88 MCG tablet 88 mcg PO DAILY Patient Comments: thyroid mnkejqorfhmi-vpgh-lxpyc acid 1 EACH tablet 1 ea PO DAILY rosuvastatin 20 mg tablet 40 mg PO DAILY Rx Instructions: TAKE 1 TABLET EVERY DAY (DME) Disability Parking Placard See Rx Instructions .Route .MEDSUPPLY Qty: 1 0RF Rx Instructions: As directed isosorbide mononitrate 20 mg tablet See Rx Instructions .ROUTE .COMPLEX Qty: 180 3RF Dose Instruction: TAKE 1 TABLET TWICE DAILY Rx Instructions: TAKE 1 TABLET TWICE DAILY Stiolto Respimat 2.5-2.5 mcg/actuation mist 2 inh inhalation DAILY Qty: 4 11RF Eliquis 5 mg tablet 5 mg PO BID Qty: 60 11RF nitroglycerin 0.4 mg tablet, sublingual See Rx Instructions .ROUTE .COMPLEX Qty: 25 3RF Dose Instruction: DISSOLVE 1 TABLET UNDER THE TONGUE EVERY 5 MINUTES NEEDED FOR CHEST PAIN Rx Instructions: DISSOLVE 1 TABLET UNDER THE TONGUE EVERY 5 MINUTES NEEDED FOR CHEST PAIN Ventolin HFA 90 mcg/actuation HFA aerosol inhaler 2 puff INHALATION Q4H PRN (Reason: shortness of breath or wheezing) Qty: 18 6RF pantoprazole 40 mg tablet,delayed release (DR/EC) 40 mg PO DAILY Qty: 90 3RF losartan 50 mg tablet 50 mg PO DAILY Qty: 90 3RF Discontinued Arnuity Ellipta 200 mcg/actuation blister with device 1 inh inhalation QDAY Qty: 30 6RF Rx Instructions: administer at approximately the same time(s) each day Referrals / Follow Up: Rupert Osullivan MD [Primary Care Provider] - Within 2 Weeks Jose Barton DO [Med Staff - Active Staff] - Within 1 Week Disposition Disposition (needs filled in before D/C Order can be placed): Home Health Service
--- NOTE | 2023-05-31 10:17 | NURSING ---
I spoke to Teresa at [facility] to inform her that the pt will be d/c today.
--- NOTE | 2023-05-31 10:21 | DS.PCM_ITS ---
Providers Date of Admission: 05/24/23 Date of Discharge: 05/31/23 Primary Care Physician: Dr. Rupert Osullivan MD Consultations 05/24/23 08:19 Consult: Gastroenterology Routine Consulting Provider: [facility] Reason for Consult: Elevated Bilirubin and LFT's. EMERGENT Consult: No Notified: Yes Date Notified: 05/24/23 Time Notified: 08:25 Method of Notification: Text 05/29/23 16:17 Consult: Cardiology Routine Consulting Provider: Jerzy Mena Reason for Consult: patient's daughter request EMERGENT Consult: No Notified: Yes Date Notified: 05/29/23 Time Notified: 16:17 Method of Notification: Text 05/29/23 16:18 Consult: Restorative Care Technician / Pulmonary Medicine Routine Consulting Provider: [facility]/Pulmonary Med Reason for Consult: patient's daughter request because she sees them outpatient EMERGENT Consult: No Notified: Yes Date Notified: 05/30/23 Time Notified: 06:18 Method of Notification: Text Reason For Visit: UTI,HYPERBILIRUBINEMIA,N/V AND DEHYDRATION Diagnosis Discharge Diagnosis (1) Hyperbilirubinemia: Status: Acute Code(s): E80.6 - Other disorders of bilirubin metabolism Plan #UTI: on PO keflex. Urine cultures grew E coli. #Hyperbilirubinemia * bilirubin is 1.9 today. AST and ALT as well as ALP have plateaud * AST, ALT and ALP have also trended up slightly * S/p cholecystectomy remotely. * Hepatitis panel negative. * MRCP showed hepatomegaly with questionable liver cirrhosis and peripancreatic and hepatoduodenal ligament lymphadenopathy of uncertain etiology * GI on board. 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 Per GI, she may need an upper GI scope if she cannot tolerate a diet. May need a liver biopsy eventually per GI, but that would only be indicated if she was going to go for her therapy as it would not prolong her life. * on PO lactulose, rifaximin and nadolol per GI. * * #Thrombocytopenia: * platelets areup to 82 from 69 yesterday * Platelets have largely been normal in the past. * likely due to underlying liver disease #DOUG: Resolved. #Hypokalemia: resolved. k is 3.5 today. #COPD: Not in exacerbation. Breathing treatments bronchodilators. #CAD s/p CABG and stents: * Did complain of some chest pain. Initial troponin was 124 and essentially remained flat with repeat at 122 and 125. * EKG showed no acute ST changes * Recently had 2D echo on May 24, 2023 which showed EF of 65% and moderately enlarged left atrium as well as stable appearing bioprosthetic aortic valve. * chest pain hasn't recurred and she has remained stable * #Nonsustained Ventricular tachycardia * had a short beat run of vtach. potassium and magnesium WNL * 2D echo done on 05/24/2023 as above * keep K >4 and Mg >2 * it turns out patient had an abnormal stress test done in [place] in March 2023. According to patient she says it was in proportion for her carotid artery surgery. Stress test without global and so she did not have surgery. Patient tells me she does not think she had a cardiac cath describes a procedure where it appears that she had a cardiac cath and was told that there was nothing much else that could be done for her. Will request for records from [facility] to ascertain the veracity of this. * Per cardiology to start on p.o. metoprolol XL 50 mg daily. #Hypothyroidism: On Synthroid #Hyperlipidemia: Lipids held due to elevated liver enzymes. #Benign essential hypertension: On losartan and Lasix. #Chronic A-fib: On Eliquis DVT prophylaxis: SCDs due to thrombocytopenia. Disposition: To do peer to peer with insurance company today to evaluate for placement. Medications at Discharge Home Medications levothyroxine 88 mcg tablet 88 mcg PO DAILY 11/23/13 multivitamin-ferrous fumarate-folic acid 18 mg-400 mcg tablet 1 ea PO DAILY 02/07/17 calcium carbonate 500 mg-vitamin D3 5 mcg (200 unit) tablet (Os-Christian 500 + D3) 1 tab PO BID 11/28/17 magnesium oxide 400 mg (241.3 mg magnesium) tablet (MagOx) 400 mg PO DAILY 12/31/18 Disability Parking Placard #1 ea 05/30/20 aspirin 81 mg tablet,delayed release (Adult Aspirin Regimen) 81 mg PO DAILY 05/02/22 isosorbide mononitrate 20 mg tablet See Rx Instructions .Route .COMPLEX #180 tabs 06/10/22 tiotropium 2.5 mcg-olodaterol 2.5 mcg/actuation mist for inhalation (Stiolto Respimat) 2 inh inhalation DAILY #4 grams 10/28/22 apixaban 5 mg tablet (Eliquis) 5 mg PO BID #60 tabs 12/10/22 nitroglycerin 0.4 mg sublingual tablet See Rx Instructions .Route .COMPLEX #25 tabs 04/02/23 albuterol sulfate 90 mcg/actuation aerosol inhaler (Ventolin HFA) 2 puff inhalation Q4H PRN shortness of breath or wheezing #18 grams 04/08/23 losartan 50 mg tablet 50 mg PO DAILY #90 tabs 04/08/23 pantoprazole 40 mg tablet,delayed release 40 mg PO DAILY #90 tabs 04/08/23 albuterol sulfate 2.5 mg/3 mL (0.083 %) solution for nebulization 2.5 mg (3 mL) inhalation Q4H PRN Sob &/Or Wheezing #180 mL 05/08/23 furosemide 20 mg tablet 40 mg PO BID Swelling 05/08/23 potassium chloride 10 mEq tablet,extended release 10 meq PO BID When you take Lasix for swelling 05/08/23 rosuvastatin 20 mg tablet 40 mg PO DAILY cholesterol 05/24/23 fluticasone furoate 100 mcg-vilanterol 25 mcg/dose inhalation powder (Breo Ellipta) 1 inh inhalation DAILY #60 ea 05/31/23 lactulose 20 gram/30 mL oral solution 20 g (30 mL) PO TID #3,000 mL 05/31/23 metoprolol succinate 50 mg tablet,extended release 24 hr 50 mg PO DAILY #30 tabs 05/31/23 nadolol 20 mg tablet 10 mg (1/2 x 20 mg) PO BID #60 tabs 05/31/23 prednisone 20 mg tablet 40 mg (2 x 20 mg) PO BREAKFAST #10 tabs 05/31/23 rifaximin 550 mg tablet (Xifaxan) 550 mg PO BID #60 tabs 05/31/23 Hospital Course Operations None Procedures None Summary of Care Provided Minutes Spent on Discharge: 55 Hospital Course: Patient is an 82-year-old female with an extensive past medical history as outlined was admitted through the ED with a complaint of shortness of breath and back pain as well as nausea and vomiting. His symptoms have started about 6 weeks prior to admission and gradually worsened. She had been seen by her PCP and diagnosed with UTI on outpatient basis but his symptoms did not improve. His symptoms worsened with associated worsening nausea and vomiting. CT of the abdomen and pelvis showed diverticulosis without diverticulitis and urinalysis was positive for UTI. Liver enzymes were also elevated with AST and ALT as well as total bilirubin and ALP elevated. She was admitted and managed for acute cystitis with hyperbilirubinemia and thrombocytopenia. She also had DOUG. Gastroenterology was consulted. She was started on IV Zosyn. Hepatitis panel was negative. Thrombocytopenia was thought to be due to her liver disease. MRCP showed hepatomegaly with questionable liver cirrhosis and peripancreatic and hepatoduodenal ligament lymphadenopathy of uncertain etiology. 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 Per GI, she may need an upper scope and liver biopsy but only if she was going to be on therapy to prolong her life. Per GI she was started on lactulose and rifaximin as well as nadolol. She remained stable. Family wanted her to be placed in pen[facility]iary facility but she did not meet the criteria and insurance denied this. Of note patient's hospital course was complicated by nonsustained ventricular tachycardia for which cardiology was eventually consulted. She had had 2D echo which showed EF of 65% and moderately enlarged left atrium as well as stable appearing bioprosthetic aortic valve. Cardiology reviewed patient and recommended starting metoprolol 50 mg daily. Transpired that patient had had an abnormal stress test in March 2023 at [facility]. He had had a subsequent cardiac cath and was told that she would have medical management. She is follow-up with his primary care doctor and gastroenterology as well as cardiology. Patient seen and examined prior to discharge. Her daughter was by her bedside. She had no active complaints and had an uneventful night. Review of systems otherwise negative. Labs and vitals reviewed. Home medication reviewed and reconciled. Physical Exam Const alert, oriented x3, no apparent distress, average body habitus and healthy appearing Constitutional Narrative: elderly General Appearance: cooperative, comfortable, well kempt and well developed Orientation / Consciousness: awake, oriented to person, oriented to place and oriented to time HEENT normocephalic, head/scalp atraumatic, hearing grossly normal bilaterally, moist oral mucous membranes and oropharynx normal Eyes PERRL, EOMs intact bilaterally and conjunctivae normal Neck no lymphadenopathy, supple, no JVD, thyroid normal and no carotid bruits General: trachea midline Lymph Lymphatic: no lymphadenopathy noted and no lymphedema noted Resp normal respiratory effort, normal air movement, no retractions, no use of accessory muscles and clear to auscultation bilaterally Auscultation: Negative for rales, rhonchi or wheezes Cardio regular rate, regular rhythm, S1 normal heart sound, S2 normal heart sound, no murmurs, no rub and no gallops Cardio Narrative: Heart rate and rhythm is irregular GI normal to inspection, nondistended, normoactive bowel sounds, soft to palpation, non-tender and non-distended GI Narrative: obese abdomen Extremity normal to inspection, full ROM, normal capillary refill, no clubbing, cyanosis or edema and no calf tenderness General Extremity: no tenderness to palpation of joints or extremities Skin no rashes or lesions noted Skin Narrative: General Skin Exam: no breakdown Neuro oriented x3, CN's II-XII intact bilaterally, moves all extremities, no focal motor deficits and no sensory deficits noted Sensorium / Orientation: awake, alert, oriented to person, oriented to place and oriented to time Speech: speech normal Motor Exam: strength 5/5 throughout and general weakness Psych thought process normal, cooperative and affect normal Appearance: appropriate Weight / BMI Weight Weight: 179 lb 3.773 oz Body Mass Index (BMI) 36.1 ABG / Lab / Microbiology Data 05/31/23 05:34 05/31/23 05:34 Laboratory: Laboratory Results - last 24 hr 05/31/23 05:34: WBC 10.8, RBC 4.28, Hgb 13.0, Hct 39.4, MCV 92.1, MCH 30.4, MCHC 33.0, RDW Std Deviation 55.8 H, RDW Coeff of Ryan 17.1 H, Plt Count 90 L, MPV 13.8 H, Immature Gran % (Auto) 1.700 H, Neut % (Auto) 68.3, Lymph % (Auto) 16.8 L, Ocean % (Auto) 10.6 H, Eos % (Auto) 2.0, Baso % (Auto) 0.6, Absolute Neuts (auto) 7.4, Absolute Lymphs (auto) 1.81, Nucleated RBC % 1.0, Sodium 136, Potassium 3.5, Chloride 106, Carbon Dioxide 24.0, Anion Gap 6, BUN 23 H, Creatinine 0.93, Estim Creat Clear Calc 43.28, Est GFR (MDRD) Af Amer 74, Est GFR (MDRD) Non-Af 61, BUN/Creatinine Ratio 24.8 H, Glucose 113 H, Calcium 8.4 L, Total Bilirubin 2.30 H, AST 166 H, ALT 125 H, Alkaline Phosphatase 268 H, Total Protein 6.1 L, Albumin 2.6 L, Globulin 3.5, Albumin/Globulin Ratio 0.7 L Microbiology: Microbiology 05/24/23 02:15 Blood Culture (Wb) - Anticubital Left Blood Culture - Final No growth in 5 days. 05/24/23 01:30 Blood Culture (Wb) - Anticubital Left Blood Culture - Final No growth in 5 days. 05/24/23 05:20 Urine, Clean Catch Urine Culture - Final Gram negative faby D/C Instructions Discharge Diet: Low fat / Low cholesterol Weight Bearing Status: Weight bearing as tolerated Call your doctor if you observe: Fever of 101 or Higher, Shortness of breath, Dizziness, Swelling in the ankles and Chest pain Meaningful Use Info Meaningful Use Diagnoses (Choose all that apply): None applicable Discharge Plan Admission Admit Date/Time: 05/24/23 06:46 Primary Reason for Your Visit: cirrhosis with hyperbilirubinema Attending Provider: Roseanna Johns Primary Care Provider: Rupert Osullivan Consulting Providers: Tacho Baez; Rafael Silveira; Jerzy Mena Instructions Patient Instructions: NAFLD Discharge Orders/Prescriptions Prescriptions: New metoprolol succinate 50 mg Tablet Extended Release 24 Hr 50 mg PO DAILY Qty: 30 2RF prednisone 20 mg Tablet 40 mg PO BREAKFAST Qty: 10 0RF nadolol 20 mg Tablet 10 mg PO BID Qty: 60 2RF Xifaxan 550 mg Tablet 550 mg PO BID Qty: 60 2RF fluticasone furoate-vilanterol [Breo Ellipta] 100-25 mcg/dose blister with device 1 inh inhalation DAILY Qty: 60 1RF lactulose 20 gram/30 mL solution 20 g PO TID Qty: 3000 2RF Rx Instructions: titrate till 2-3 loose stools daily Continued calcium carbonate-vitamin D3 [Os-Christian 500 + D3] 500 mg(1,250mg) -200 unit tablet 1 tab PO BID magnesium oxide [MagOx] 400 mg (241.3 mg magnesium) tablet 400 mg PO DAILY aspirin [Adult Aspirin Regimen] 81 mg tablet,delayed release (DR/EC) 81 mg PO DAILY furosemide 20 mg tablet 40 mg PO BID potassium chloride 10 mEq tablet extended release 10 meq PO BID albuterol sulfate 2.5 mg /3 mL (0.083 %) solution for nebulization 2.5 mg inhalation Q4H PRN (Reason: Sob &/Or Wheezing) Qty: 180 3RF levothyroxine 88 MCG tablet 88 mcg PO DAILY Patient Comments: thyroid bogyjjmqvdbx-erhn-qvkxh acid 1 EACH tablet 1 ea PO DAILY rosuvastatin 20 mg tablet 40 mg PO DAILY Rx Instructions: TAKE 1 TABLET EVERY DAY (DME) Disability Parking Placard See Rx Instructions .Route .MEDSUPPLY Qty: 1 0RF Rx Instructions: As directed isosorbide mononitrate 20 mg tablet See Rx Instructions .ROUTE .COMPLEX Qty: 180 3RF Dose Instruction: TAKE 1 TABLET TWICE DAILY Rx Instructions: TAKE 1 TABLET TWICE DAILY Stiolto Respimat 2.5-2.5 mcg/actuation mist 2 inh inhalation DAILY Qty: 4 11RF Eliquis 5 mg tablet 5 mg PO BID Qty: 60 11RF nitroglycerin 0.4 mg tablet, sublingual See Rx Instructions .ROUTE .COMPLEX Qty: 25 3RF Dose Instruction: DISSOLVE 1 TABLET UNDER THE TONGUE EVERY 5 MINUTES NEEDED FOR CHEST PAIN Rx Instructions: DISSOLVE 1 TABLET UNDER THE TONGUE EVERY 5 MINUTES NEEDED FOR CHEST PAIN Ventolin HFA 90 mcg/actuation HFA aerosol inhaler 2 puff INHALATION Q4H PRN (Reason: shortness of breath or wheezing) Qty: 18 6RF pantoprazole 40 mg tablet,delayed release (DR/EC) 40 mg PO DAILY Qty: 90 3RF losartan 50 mg tablet 50 mg PO DAILY Qty: 90 3RF Discontinued Arnuity Ellipta 200 mcg/actuation blister with device 1 inh inhalation QDAY Qty: 30 6RF Rx Instructions: administer at approximately the same time(s) each day Referrals / Follow Up: Rupert Osullivan MD [Primary Care Provider] - Within 2 Weeks Jose Barton DO [Med Staff - Active Staff] - Within 1 Week Disposition Disposition (needs filled in before D/C Order can be placed): Home Health Service Charges/Coding Visit Charges Inpatient E&M: 21388 Disch Hosp >30min
[2023-05-31] MEDS: Losartan Potassium 50 MG Tablet PO (11:07)
--- NOTE | 2023-06-03 13:44 | CASEMGMT ---
Addendum entered by Malik Vera 06/03/23 16:16: VM received from pt's niece, Renata. ANNAMARIE OLVERA called her back at this time. She states pt's BP was low on Friday so they spoke w/pt's PCP, Dr Osullivan, and appt was made for yesterday. Pt saw Dr Osullivan yesterday and he made several medication changes: d/c'd Oscal, d/c'd nadolol, added Spironolactone, decreased losartan, decreased metoprolol. She states he did give her some Xifaxin samples when she was in the office. She was made aware PA was received for the Xifaxin today and co-pay is $150/30-day supply. She states pt is agreeable to paying this amt and Renata states she will pick that up tomorrow at the pharmacy. She was also going to check on Xifaxin website for any further financial assistance/resources. She states Dr Johns did call them yesterday and spoke w/her about pt taking Lactulose, which Renata states she did pick that up at the pharmacy and pt is taking as prescribed. She called to get an appt w/Dr Barton, and pt will be seeing Dr Kenyon, but no appt's available until September. Dr Osullivan to manage pt until then. Renata states the [facility] nurse is currently w/pt and she has notified her of all of these changes as well. Addendum entered by Malik Vera 06/03/23 14:17: ANNAMARIE OLVERA spoke w/Elenita @ [facility]. She was made aware PA received for the Xifaxan and pt's co-pay is $150/30-day supply. She states they plan to do SOC today and she will notify the pt's [facility] nurse to let pt know of the above. Original Note: ANNAMARIE OLVERA NOTE: Fax received that PA is required for Xifaxan. PA submitted to CoverMyMeds. Goldberg: [id number] and this was approved. PA Case # [id number]. Call placed to [facility] pharmacy. Medication went through and pt's co-pay is $150 for 30-day supply. Call placed to pt to notify her of same. No answer. VM left requesting a return call. Latesha STREETERN ANNAMARIE OLVERA
== END 2023-05-31 13:45 | disposition home health service (06) | DRG 442 ==
LOC: ED 05:08 → PCU 06:12
PROVIDERS: Internal Medicine; Admitting Provider Internal Medicine; Emergency Provider Emergency Medicine; PCP Family Medicine; Visit Provider Student in an Organized Health Care Education/Training Program
DX: K75.81 Nonalcoholic steatohepatitis (NASH) (principal); N39.0 Urinary tract infection, site not specified; D69.3 Immune thrombocytopenic purpura; I47.20 Ventricular tachycardia, unspecified; N17.9 Acute kidney failure, unspecified; I48.20 Chronic atrial fibrillation, unspecified; Z16.24 Resistance to multiple antibiotics; I27.20 Pulmonary hypertension, unspecified; D69.6 Thrombocytopenia, unspecified; I11.0 Hypertensive heart disease with heart failure; J44.9 Chronic obstructive pulmonary disease, unspecified; K74.69 Other cirrhosis of liver; I50.9 Heart failure, unspecified; F03.A0 Unspecified dementia, mild, without behavioral disturbance, psychotic disturbance, mood disturbance, and anxiety; E89.0 Postprocedural hypothyroidism; D64.9 Anemia, unspecified; E78.5 Hyperlipidemia, unspecified; G47.33 Obstructive sleep apnea (adult) (pediatric); I44.7 Left bundle-branch block, unspecified; I25.10 Atherosclerotic heart disease of native coronary artery without angina pectoris; K21.9 Gastro-esophageal reflux disease without esophagitis; E87.6 Hypokalemia; E83.119 Hemochromatosis, unspecified; D69.59 Other secondary thrombocytopenia; M51.16 Intervertebral disc disorders with radiculopathy, lumbar region; Z68.33 Body mass index [BMI] 33.0-33.9, adult; Z95.3 Presence of xenogenic heart valve; Z95.5 Presence of coronary angioplasty implant and graft; B96.20 Unspecified Escherichia coli [E. coli] as the cause of diseases classified elsewhere; Z79.51 Long term (current) use of inhaled steroids; Z82.3 Family history of stroke; R53.81 Other malaise; Z79.01 Long term (current) use of anticoagulants; R74.01 Elevation of levels of liver transaminase levels; E66.9 Obesity, unspecified; Z87.891 Personal history of nicotine dependence; Z95.1 Presence of aortocoronary bypass graft; T36.4X5A Adverse effect of tetracyclines, initial encounter
CPT/HCPCS: 36415; 71045; 71046; 74176; 74181; 80048; 80053; 80074; 80076; 81001; 83540; 83550; 83605; 83735; 84100; 84443; 84484; 85025; 85610; 85652; 85730; 86140; 87040; 87077; 87086; 87088; 87186; 93005; 93306; 94640; 94668; 97110; 97162; 97165; 97530; 97535; 99285; J7030; J7050; A4216; J2405

== ENCOUNTER → 2023-06-02 | Outpatient (CLI) | payer MEDICARE, SELFPAY ==
[2023-06-02 15:35] LABS: Hematocrit 39.1 % (37-47); Hemoglobin 12.8 g/dL (12.0-15.0); Mean Corp Hgb Conc 32.7 g/dL (32-36); Mean Corpuscular Hgb 30.4 pg (27.0-32.0); Mean Corpuscular Volume 92.9 fL (81-99); Mean Platelet Vol. 14.5 fl (6.2-12.0); POSITIVE COUNT YES; Platelet Count 84 K/mm3 (150-450); RBC Distribution Width CV 17.6 % (11.6-14.6); RBC Distribution Width SD 57.7 fl (35.1-43.9); Red Blood Count 4.21 M/mm3 (4.2-5.4); White Blood Count 7.4 K/mm3 (4.4-11.0)
[2023-06-02 15:43] LABS: International Normalized Ratio 1.5; Prothrombin Time (Protime)PT. 17.9 SECONDS (11.7-14.9)
[2023-06-02 16:03] LABS: ALB/GLOB Ratio 0.7 RATIO (0.9-2.4); AST(SGOT) 198 U/L (15-37); Alanine Aminotransfer ALT/SGPT 128 U/L (13-56); Albumin, Serum 2.5 g/dL (3.2-5.0); Alkaline Phosphatase 293 U/L (45-117); Anion Gap 7 (5-15); BUN 25 mg/dL (7-18); BUN/Creat Ratio 24.3 RATIO (10-20); Calcium,Total 8.7 mg/dL (8.5-10.1); Chloride 101 mmol/L (98-107); Creatinine, Serum 1.03 mg/dL (0.55-1.02); EST Glomerular Filtration Rate 54 mL/min (>60); Est Glom Filt Rate - Afr Amer 66 mL/min (>60); Globulin 3.5 g/dL (2.2-4.2); Glucose 127 mg/dL (74-106); Magnesium 2.4 mg/dL (1.6-2.6); Potassium 4.2 mmol/L (3.5-5.1); Sodium Level 135 mmol/L (136-145)
[2023-06-04 09:45] LABS: Haptoglobin 128 mg/dL (41-333)
== END | disposition home or self-care (01) ==
PROVIDERS: PCP Family Medicine; Referring Provider Family Medicine; Visit Provider Family Medicine
DX: K74.60 Unspecified cirrhosis of liver (principal); I48.91 Unspecified atrial fibrillation
CPT/HCPCS: 36415; 80053; 83010; 83735; 85027; 85610

== ENCOUNTER 2023-06-05 19:40 | Emergency (ER) | payer MEDICARE, SELFPAY ==
[2023-06-05] VITALS (7 sets, daily range): BP systolic 98–112; BP diastolic 61–76; PULSE 95–133; RESP 16–19; TEMP 36.4–36.8; O2SAT 90–93
--- NOTE | 2023-06-05 20:26 | EKG12_ITS ---
Test Reason : FALL Blood Pressure : / mmHG Vent. Rate : 125 BPM Atrial Rate : 000 BPM P-R Int : 000 ms QRS Dur : 092 ms QT Int : 328 ms P-R-T Axes : 000 039 187 degrees QTc Int : 473 ms Atrial fibrillation with rapid ventricular response Low voltage QRS Cannot rule out Anterior infarct (cited on or before 26-MAY-2023) Abnormal ECG Confirmed by CARLOS HWANG, ZACHARY ([id number]), publications editor JOSEPH PARKS ([id number]) on 06/09/2023 6:59:05 AM Referred By: KIESHA Confirmed By:KRZYSZTOF GONZALEZ MD
--- NOTE | 2023-06-05 20:43 | RAD_ITS ---
INDICATION: injury EXAMINATION/TECHNIQUE: X-RAY - RIGHT XR Scapula 2 VIEWS COMPARISON: No relevant prior comparison study available FINDINGS: No fracture identified. The scapula appears intact. The glenohumeral joint is aligned. Moderate hypertrophic degenerative change of the acromioclavicular joint. The visualized ribs are intact. The visualized lung is clear. RAD/Scapula IMPRESSION: No fracture or malalignment. Electronically Signed: Brian Arana MD at 21:20 EST ,
[2023-06-05 20:52] LABS: Absolute Lymphocyte Count 1.19 X10^3/uL (0.83-4.51); Absolute Neutrophil Count 5.6 X10^3/uL (2.0-7.7); Basophil# 0.05 X10^3/uL; Basophil% 0.6 % (0-1); Eosinophil# 0.03 X10^3/uL; Eosinophils% 0.4 % (0-5); Hematocrit 37.2 % (37-47); Hemoglobin 12.6 g/dL (12.0-15.0); Lymphocyte # 1.19 X10^3/ul (0.83-4.51); Lymphocyte % 14.5 % (19-41); Mean Corp Hgb Conc 33.9 g/dL (32-36); Mean Corpuscular Hgb 30.7 pg (27.0-32.0); Mean Corpuscular Volume 90.7 fL (81-99); Monocyte# 1.26 X10^3/uL; Monocyte% 15.3 % (0-10); NRBC Flagged by Analyzer 1.2 % (0-5); Neutrophil # 5.55 X10^3/uL (2.7-7.7); Neutrophil % 67.5 % (47-70); POSITIVE COUNT YES; Platelet Count 62 K/mm3 (150-450); RBC Distribution Width CV 17.5 % (11.6-14.6); RBC Distribution Width SD 56.5 fl (35.1-43.9); White Blood Count 8.2 K/mm3 (4.4-11.0)
[2023-06-05 20:57] LABS: Differential Indicated SCAN CRITERIA MET
[2023-06-05 21:10] LABS: Anisocytosis RARE; Macrocytosis RARE; Platelet Estimate MOD DEC (ADEQ); Red Cell Morphology N CHROM NORMAL (NORM C&C)
--- NOTE | 2023-06-05 21:37 | EX.ED.GENINJ ---
HPI <ANGELLA Weaver - Last Filed: 06/05/23 21:52> History of Present Illness Chief Complaint: Fall Narrative Narrative: Patient presenting today with her daughter for evaluation due to a fall that occurred last night. Patient reports that she was trying to get out of bed to reach a glass of water that was on her nightstand when she slipped and hit her shoulder against the nightstand. She did not hit her head and denies any loss of consciousness. Daughter reports that today she noticed a large bruise to her right upper back and wanted to bring her in for evaluation. She is on Eliquis due to a history of atrial fibrillation. [facility] <ANGELLA Weaver - Last Filed: 06/05/23 21:52> [facility] Medical History Afib Atherosclerosis of coronary artery bypass graft without angina pectoris Atherosclerosis of coronary artery of [place] heart without angina pectoris Carotid artery stenosis CHF (congestive heart failure) Chronic anemia COPD with acute exacerbation Degeneration of intervertebral disc of lumbosacral region Depression Dyspnea Essential hypertension GERD (gastroesophageal reflux disease) GI bleed (~02/16/16) History of GI bleed (02/2016) History of non-ST elevation myocardial infarction (NSTEMI) (06/24/05) HLD (hyperlipidemia) Hypothyroidism Left bundle branch block Lumbar facet arthropathy Lumbosacral spondylosis Non-rheumatic aortic stenosis Obesity Old myocardial infarction ALMA (obstructive sleep apnea) Persistent atrial fibrillation Scarlet fever Severe aortic stenosis Thrombocytopenia Thyroid nodule Home Medications levothyroxine 88 mcg tablet 88 mcg PO DAILY 11/23/13 [History Last Taken 03/19/22] multivitamin-ferrous fumarate-folic acid 18 mg-400 mcg tablet 1 ea PO DAILY 02/07/17 [History Last Taken Unknown] calcium carbonate 500 mg-vitamin D3 5 mcg (200 unit) tablet (Os-Christian 500 + D3) 1 tab PO BID 11/28/17 [History Last Taken Unknown] magnesium oxide 400 mg (241.3 mg magnesium) tablet (MagOx) 400 mg PO DAILY 12/31/18 [History Last Taken Unknown] Disability Parking Placard #1 ea 05/30/20 [Rx Last Taken Unknown] aspirin 81 mg tablet,delayed release (Adult Aspirin Regimen) 81 mg PO DAILY 05/02/22 [History Last Taken Unknown] isosorbide mononitrate 20 mg tablet See Rx Instructions .Route .COMPLEX #180 tabs 06/10/22 [Rx Last Taken Unknown] tiotropium 2.5 mcg-olodaterol 2.5 mcg/actuation mist for inhalation (Stiolto Respimat) 2 inh inhalation DAILY #4 grams 10/28/22 [Rx Last Taken Unknown] apixaban 5 mg tablet (Eliquis) 5 mg PO BID #60 tabs 12/10/22 [Rx Last Taken Unknown] nitroglycerin 0.4 mg sublingual tablet See Rx Instructions .Route .COMPLEX #25 tabs 04/02/23 [Rx Last Taken Unknown] albuterol sulfate 90 mcg/actuation aerosol inhaler (Ventolin HFA) 2 puff inhalation Q4H PRN shortness of breath or wheezing #18 grams 04/08/23 [Rx Last Taken Unknown] losartan 50 mg tablet 50 mg PO DAILY #90 tabs 04/08/23 [Rx Last Taken 06/02/23] pantoprazole 40 mg tablet,delayed release 40 mg PO DAILY #90 tabs 04/08/23 [Rx Last Taken Unknown] albuterol sulfate 2.5 mg/3 mL (0.083 %) solution for nebulization 2.5 mg (3 mL) inhalation Q4H PRN Sob &/Or Wheezing #180 mL 05/08/23 [Rx Last Taken Unknown] furosemide 20 mg tablet 40 mg PO BID Swelling 05/08/23 [History Last Taken Unknown] potassium chloride 10 mEq tablet,extended release 20 meq PO BID When you take Lasix for swelling 05/08/23 [History Last Taken Unknown] rosuvastatin 20 mg tablet 40 mg PO DAILY cholesterol 05/24/23 [History Last Taken Unknown] fluticasone furoate 100 mcg-vilanterol 25 mcg/dose inhalation powder (Breo Ellipta) 1 inh inhalation DAILY #60 ea 05/31/23 [Rx Last Taken Unknown] lactulose 20 gram/30 mL oral solution 20 g (30 mL) PO TID #3,000 mL 05/31/23 [Rx Last Taken Unknown] prednisone 20 mg tablet 40 mg (2 x 20 mg) PO BREAKFAST #10 tabs 05/31/23 [Rx Last Taken Unknown] rifaximin 550 mg tablet (Xifaxan) 550 mg PO BID #60 tabs 05/31/23 [Rx Last Taken Unknown] metoprolol succinate 50 mg tablet,extended release 24 hr 25 mg PO DAILY 06/05/23 [History Last Taken Unknown] spironolactone 25 mg tablet 25 mg PO DAILY 06/05/23 [History Last Taken Unknown] tiotropium bromide 18 mcg capsule with inhalation device (Spiriva with HandiHaler) 1 cap inhalation DAILY 06/05/23 [History Last Taken Unknown] Allergy/AdvReac Type Severity Reaction Status Date / Time adhesive AdvReac Rash Verified 06/05/23 19:45 nickel AdvReac Rash Verified 06/05/23 19:45 wool AdvReac Rash Verified 06/05/23 19:45 Family History Mother CAD (coronary artery disease) Hypertension Alzheimer disease Daughter CAD (coronary artery disease) Myocardial infarction Sister Breast cancer Myocardial infarction Brother Myocardial infarction Father CVA (cerebral vascular accident) Heart disease Hypertension Aneurysm and dissection of heart Surgical History H/O aortic valve replacement (01/31/16) History of aortic valve replacement with bioprosthetic valve (~01/31/16) History of cardiac catheterization (~2015) History of cataract extraction (~2008) History of colonoscopy (~2007) History of colonoscopy (~2015) History of electrophysiologic study (02/02/16) History of hysterectomy History of inguinal herniorrhaphy History of lumpectomy of left breast History of partial thyroidectomy (~2008) History of squamous cell carcinoma excision Hx of cholecystectomy Previous back surgery S/P CABG x 2 (10/22/05) S/P CABG x 3 (~1986) Status post Mohs surgery for basal cell carcinoma (~2007) Stented coronary artery (~06/24/05) Social History Smoking Status: Former smoker quit date: 04/07/02 pack-years: 35 second hand exposure: No alcohol intake: never substance use type: does not use caffeine: Yes Type: coffee Number of servings: 2 ROS <ANGELLA Weaver - Last Filed: 06/05/23 21:52> ROS ED Constitutional Constitutional ED: Denies chills or fever(s) Cardiovascular Cardiovascular: Denies chest pain Respiratory/Chest Respiratory/Chest: Denies cough or dyspnea Gastrointestinal Gastrointestinal: Denies abdominal pain, nausea or vomiting Musculoskeletal Musculoskeletal: Reports arthralgias; Denies myalgias Integumentary Denies Abrasions Neurologic Neurologic: Denies weakness EXAM <ANGELLA Weaver - Last Filed: 06/05/23 21:52> Physical Exam Const Vital Signs: 06/05/23 19:41 06/05/23 19:41 06/05/23 20:20 Temperature 98.3 F Temperature Source Temporal Pulse Rate 95 129 H Respiratory Rate 16 18 Respiratory Effort Normal Non-Labored Respiratory Depth Normal Respiratory Pattern Normal Blood Pressure 101/61 112/76 Blood Pressure Mean 74 88 Pulse Ox 93 90 91 Oxygen Delivery Method Room Air Room Air Room Air 06/05/23 20:31 06/05/23 21:27 06/05/23 22:00 Temperature Temperature Source Pulse Rate 112 H 127 H 133 H Respiratory Rate 19 H 18 19 H Respiratory Effort Respiratory Depth Respiratory Pattern Blood Pressure 101/75 98/66 107/75 Blood Pressure Mean 83 76 85 Pulse Ox 91 90 91 Oxygen Delivery Method Room Air Room Air Room Air 06/05/23 22:17 Temperature Temperature Source Pulse Rate 107 H Respiratory Rate 19 H Respiratory Effort Respiratory Depth Respiratory Pattern Blood Pressure 106/73 Blood Pressure Mean 84 Pulse Ox 90 Oxygen Delivery Method Room Air Positive well nourished, well developed and no apparent distress General Appearance ED: well developed HEENT Reports normocephalic and head/scalp atraumatic Mouth ED: Yes moist mucous membranes normal Eyes PERRL and EOMs intact bilaterally Neck full ROM and supple Chest Wall inspection of chest normal and palpation of chest normal Chest Narrative: No pain to palpation to the chest or right lateral rib cage. Resp normal respiratory effort and clear to auscultation bilaterally Cardio regular rate and regular rhythm GI soft to palpation, non-tender, non-distended and no masses Back/Spine normal ROM Back/Spine Narrative: Large bruise to the right scapula with tenderness palpation to the right scapula. No midline tenderness to the cervical, thoracic, or lumbar spine. Extremity normal to inspection and full ROM Neuro oriented x3, CN's II-XII intact bilaterally, moves all extremities, no focal motor deficits and no sensory deficits noted Sensorium / Orientation: awake and alert Psych mental status grossly normal and thought process normal Skin no rashes or lesions noted and no wounds <Dr. Zaid Rocha DO - Last Filed: 06/05/23 22:33> Physical Exam Const Vital Signs: 06/05/23 19:41 06/05/23 19:41 06/05/23 20:20 Temperature 98.3 F Temperature Source Temporal Pulse Rate 95 129 H Respiratory Rate 16 18 Respiratory Effort Normal Non-Labored Respiratory Depth Normal Respiratory Pattern Normal Blood Pressure 101/61 112/76 Blood Pressure Mean 74 88 Pulse Ox 93 90 91 Oxygen Delivery Method Room Air Room Air Room Air 06/05/23 20:31 06/05/23 21:27 06/05/23 22:00 Temperature Temperature Source Pulse Rate 112 H 127 H 133 H Respiratory Rate 19 H 18 19 H Respiratory Effort Respiratory Depth Respiratory Pattern Blood Pressure 101/75 98/66 107/75 Blood Pressure Mean 83 76 85 Pulse Ox 91 90 91 Oxygen Delivery Method Room Air Room Air Room Air 06/05/23 22:17 Temperature Temperature Source Pulse Rate 107 H Respiratory Rate 19 H Respiratory Effort Respiratory Depth Respiratory Pattern Blood Pressure 106/73 Blood Pressure Mean 84 Pulse Ox 90 Oxygen Delivery Method Room Air [facility] <ANGELLA Weaver - Last Filed: 06/05/23 21:52> [facility] Narrative Medical decision making narrative: Patient presenting due to a fall that occurred last night. She has a large bruise to her right scapula, no pain to palpation midline in her back or to her rib cage bilaterally. She is well-appearing and in no acute distress. However, she is tachycardic at 127 bpm. Daughter reports that she does have a history of confusion that has been worse over the past 2 weeks, she is a history of cirrhosis and this is being worked up with the PCP and they have concerns that her ammonia level could be high and they have been adjusting her lactulose dose. Labs will be obtained here as well as a ammonia level. EKG obtained and patient is in atrial fibrillation RVR. She was given 500 L IV fluids and a dose of Cardizem. X-ray of the right scapula obtained and is negative for any acute findings. Workup is pending. Lab Data Attestation: I reviewed the patient's lab results. Labs: Laboratory Results - last 24 hr 06/05/23 06/05/23 20:37 21:22 WBC 8.2 RBC 4.10 L Hgb 12.6 Hct 37.2 MCV 90.7 MCH 30.7 MCHC 33.9 RDW Std Deviation 56.5 H RDW Coeff of Ryan 17.5 H Plt Count 62 L MPV TNP Immature Gran % (Auto) 1.700 H Neut % (Auto) 67.5 Lymph % (Auto) 14.5 L [place] % (Auto) 15.3 H Eos % (Auto) 0.4 Baso % (Auto) 0.6 Absolute Neuts (auto) 5.6 Absolute Lymphs (auto) 1.19 Nucleated RBC % 1.2 Platelet Estimate MOD DEC RBC Morphology N CHROM Anisocytosis RARE Macrocytosis RARE Sodium Cancelled 128 L Potassium Cancelled 4.1 Chloride Cancelled 93 L Carbon Dioxide Cancelled 27.0 Anion Gap Cancelled 8 BUN Cancelled 20 H Creatinine Cancelled 1.03 H Estim Creat Clear Calc Cancelled Est GFR (MDRD) Af Amer Cancelled 66 Est GFR (MDRD) Non-Af Cancelled 54 L BUN/Creatinine Ratio Cancelled 19.4 Glucose Cancelled 120 H Calcium Cancelled 8.4 L Total Bilirubin Cancelled 5.70 H AST Cancelled 231 H ALT Cancelled 139 H Alkaline Phosphatase Cancelled 382 H Ammonia Cancelled 28.0 Total Protein Cancelled 5.9 L Albumin Cancelled 2.4 L Globulin Cancelled 3.5 Albumin/Globulin Ratio Cancelled 0.7 L Radiography X-Ray: Read by ED Physician and Read by Radiologist Diagnostic Testing: Clinical Impression(s) from Imaging Studies Scapula X-Ray 06/05/23 20:43 IMPRESSION: No fracture or malalignment. Electronically Signed: Brian Arana MD at 21:20 EST , EKG Initial EKG: Comments: 125 bpm, atrial fibrillation with RVR, no ST elevation, reviewed and interpreted by attending ED physician <Dr. Zaid Rocha, DO - Last Filed: 06/05/23 22:33> MDM MDM Narrative Medical decision making narrative: Patient presenting due to a fall that occurred last night. She has a large bruise to her right scapula, no pain to palpation midline in her back or to her rib cage bilaterally. She is well-appearing and in no acute distress. However, she is tachycardic at 127 bpm. Daughter reports that she does have a history of confusion that has been worse over the past 2 weeks, she is a history of cirrhosis and this is being worked up with the PCP and they have concerns that her ammonia level could be high and they have been adjusting her lactulose dose. Labs will be obtained here as well as a ammonia level. EKG obtained and patient is in atrial fibrillation RVR. She was given 500 L IV fluids and a dose of Cardizem. X-ray of the right scapula obtained and is negative for any acute findings. Workup is pending. Insert ED attestation. Patient presenting after a fall which occurred last evening. She was reaching for a drink on the side of her bed and rolled over felling on her right shoulder blade. Denies head injury or LOC. Family states she is a little confused but has a history of this because she has hyperammonemia. She is at baseline for them. Lab work today shows normal white blood cell count, hemoglobin 12.6, platelets 62 which is not new. Renal function and electrolytes at baseline. LFTs are abnormal but are typically abnormal given that she has BHANDARI. Ammonia level is within normal limits and patient is taking her lactulose. X-ray of the right scapula on my interpretation is no acute fracture. Patient counseled on all findings and blood work. She states she is stable for home and her family can help her get around. Return precautions discussed. Impression: 1. Mechanical fall 2. Right scapular contusion 3. History of hepatic encephalopathy 4. Thrombocytopenia Lab Data Labs: Laboratory Results - last 24 hr 06/05/23 06/05/23 20:37 21:22 WBC 8.2 RBC 4.10 L Hgb 12.6 Hct 37.2 MCV 90.7 MCH 30.7 MCHC 33.9 RDW Std Deviation 56.5 H RDW Coeff of Ryan 17.5 H Plt Count 62 L MPV TNP Immature Gran % (Auto) 1.700 H Neut % (Auto) 67.5 Lymph % (Auto) 14.5 L [place] % (Auto) 15.3 H Eos % (Auto) 0.4 Baso % (Auto) 0.6 Absolute Neuts (auto) 5.6 Absolute Lymphs (auto) 1.19 Nucleated RBC % 1.2 Platelet Estimate MOD DEC RBC Morphology N CHROM Anisocytosis RARE Macrocytosis RARE Sodium Cancelled 128 L Potassium Cancelled 4.1 Chloride Cancelled 93 L Carbon Dioxide Cancelled 27.0 Anion Gap Cancelled 8 BUN Cancelled 20 H Creatinine Cancelled 1.03 H Estim Creat Clear Calc Cancelled Est GFR (MDRD) Af Amer Cancelled 66 Est GFR (MDRD) Non-Af Cancelled 54 L BUN/Creatinine Ratio Cancelled 19.4 Glucose Cancelled 120 H Calcium Cancelled 8.4 L Total Bilirubin Cancelled 5.70 H AST Cancelled 231 H ALT Cancelled 139 H Alkaline Phosphatase Cancelled 382 H Ammonia Cancelled 28.0 Total Protein Cancelled 5.9 L Albumin Cancelled 2.4 L Globulin Cancelled 3.5 Albumin/Globulin Ratio Cancelled 0.7 L Radiography Diagnostic Testing: Clinical Impression(s) from Imaging Studies Scapula X-Ray 06/05/23 20:43 IMPRESSION: No fracture or malalignment. Electronically Signed: Brian Arana MD at 21:20 EST Reading Location ID and State: [address] [place] [address] Tel , Service support , Discharge Plan Triage Chief Complaint: Fall ED Midlevel Provider: Katherine Carver ED Provider: Zaid Rocha Dx/Rx/DC Orders Prescriptions: No Action calcium carbonate-vitamin D3 [Os-Christian 500 + D3] 500 mg(1,250mg) -200 unit tablet 1 tab PO BID magnesium oxide [MagOx] 400 mg (241.3 mg magnesium) tablet 400 mg PO DAILY aspirin [Adult Aspirin Regimen] 81 mg tablet,delayed release (DR/EC) 81 mg PO DAILY furosemide 20 mg tablet 40 mg PO BID potassium chloride 10 mEq tablet extended release 20 meq PO BID albuterol sulfate 2.5 mg /3 mL (0.083 %) solution for nebulization 2.5 mg inhalation Q4H PRN (Reason: Sob &/Or Wheezing) Qty: 180 3RF levothyroxine 88 MCG tablet 88 mcg PO DAILY Patient Comments: thyroid [id number] acid 1 EACH tablet 1 ea PO DAILY rosuvastatin 20 mg tablet 40 mg PO DAILY Rx Instructions: TAKE 1 TABLET EVERY DAY prednisone 20 mg Tablet 40 mg PO BREAKFAST Qty: 10 0RF Xifaxan 550 mg Tablet 550 mg PO BID Qty: 60 2RF fluticasone furoate-vilanterol [Breo Ellipta] 100-25 mcg/dose blister with device 1 inh inhalation DAILY Qty: 60 1RF lactulose 20 gram/30 mL solution 20 g PO TID Qty: 3000 2RF Rx Instructions: titrate till 2-3 loose stools daily tiotropium bromide [Spiriva with HandiHaler] 18 mcg capsule, w/inhalation device 1 cap inhalation DAILY Rx Instructions: puncture 1 cap using device; one dose = 2 inhalations spironolactone 25 mg tablet 25 mg PO DAILY metoprolol succinate 50 mg Tablet Extended Release 24 Hr 25 mg PO DAILY (DME) Disability Parking Placard See Rx Instructions .Route .MEDSUPPLY Qty: 1 0RF Rx Instructions: As directed isosorbide mononitrate 20 mg tablet See Rx Instructions .ROUTE .COMPLEX Qty: 180 3RF Dose Instruction: TAKE 1 TABLET TWICE DAILY Rx Instructions: TAKE 1 TABLET TWICE DAILY Stiolto Respimat 2.5-2.5 mcg/actuation mist 2 inh inhalation DAILY Qty: 4 11RF Eliquis 5 mg tablet 5 mg PO BID Qty: 60 11RF nitroglycerin 0.4 mg tablet, sublingual See Rx Instructions .ROUTE .COMPLEX Qty: 25 3RF Dose Instruction: DISSOLVE 1 TABLET UNDER THE TONGUE EVERY 5 MINUTES NEEDED FOR CHEST PAIN Rx Instructions: DISSOLVE 1 TABLET UNDER THE TONGUE EVERY 5 MINUTES NEEDED FOR CHEST PAIN Ventolin HFA 90 mcg/actuation HFA aerosol inhaler 2 puff INHALATION Q4H PRN (Reason: shortness of breath or wheezing) Qty: 18 6RF pantoprazole 40 mg tablet,delayed release (DR/EC) 40 mg PO DAILY Qty: 90 3RF losartan 50 mg tablet 50 mg PO DAILY Qty: 90 3RF Primary Care Provider: Rupert Osullivan Referrals: Rupert Osullivan MD [Primary Care Provider] -
[2023-06-05 21:46] LABS: ALB/GLOB Ratio 0.7 RATIO (0.9-2.4); AST(SGOT) 231 U/L (15-37); Alanine Aminotransfer ALT/SGPT 139 U/L (13-56); Albumin, Serum 2.4 g/dL (3.2-5.0); Alkaline Phosphatase 382 U/L (45-117); Anion Gap 8 (5-15); BUN 20 mg/dL (7-18); BUN/Creat Ratio 19.4 RATIO (10-20); Calcium,Total 8.4 mg/dL (8.5-10.1); Chloride 93 mmol/L (98-107); Creatinine, Serum 1.03 mg/dL (0.55-1.02); EST Glomerular Filtration Rate 54 mL/min (>60); Est Glom Filt Rate - Afr Amer 66 mL/min (>60); Globulin 3.5 g/dL (2.2-4.2); Glucose 120 mg/dL (74-106); Potassium 4.1 mmol/L (3.5-5.1); Protein, Total 5.9 g/dL (6.4-8.2); Sodium Level 128 mmol/L (136-145)
[2023-06-05] MEDS: dilTIAZem 25 MG/5 ML Vial 10 MG IV BOLUS (21:56)
[2023-06-05] MEDS: 0.9% Normal Saline (500mL Bag) 500 ML 999 ML IV (21:57)
== END 2023-06-05 22:55 | disposition home or self-care (01) ==
PROVIDERS: Physician Assistant; Emergency Provider Student in an Organized Health Care Education/Training Program; PCP Family Medicine; Visit Provider Student in an Organized Health Care Education/Training Program
DX: S40.011A Contusion of right shoulder, initial encounter (principal); K76.82 Hepatic encephalopathy; J44.9 Chronic obstructive pulmonary disease, unspecified; I11.0 Hypertensive heart disease with heart failure; I50.9 Heart failure, unspecified; I48.19 Other persistent atrial fibrillation; D69.6 Thrombocytopenia, unspecified; Z87.891 Personal history of nicotine dependence; W06.XXXA Fall from bed, initial encounter; Z79.01 Long term (current) use of anticoagulants; I25.10 Atherosclerotic heart disease of native coronary artery without angina pectoris; E78.5 Hyperlipidemia, unspecified; I25.2 Old myocardial infarction; E03.9 Hypothyroidism, unspecified; Z79.82 Long term (current) use of aspirin; K21.9 Gastro-esophageal reflux disease without esophagitis; Z79.899 Other long term (current) drug therapy; Z95.3 Presence of xenogenic heart valve; Z98.49 Cataract extraction status, unspecified eye; Z90.710 Acquired absence of both cervix and uterus; Z90.49 Acquired absence of other specified parts of digestive tract; Z95.5 Presence of coronary angioplasty implant and graft
CPT/HCPCS: 99284; 36415; 73010; 80053; 82140; 85025; 93005; J7040; A4216

== ENCOUNTER 2023-06-08 04:40 | Inpatient (IN) | payer MEDICARE, SELFPAY ==
[2023-06-08] VITALS (10 sets, daily range): BP systolic 96–119; BP diastolic 39–81; PULSE 89–120; RESP 18–25; TEMP 36–36.5; O2SAT 91–97; BMI 34.8; BMI 34.3
--- OUTSIDE RECORDS SUMMARY | 2023-06-08 05:18 | XMS RPT_ITS | CCD ---
Author Name Unknown Address [id number] [place] [address] Organization [facility] Care Team Providers Care Library Clerical Assistant Name Role Phone Noe Rodriguez MD Unavailable [phone] Noe Rodriguez MD Unavailable [phone] Miranda DE LUNA, Larisa Unavailable Unavailable Abran HWANG, Naveen Richardson Primary Care Provider [phone] Noe Rodriguez MD Unavailable [phone] Noe Rodriguez MD Unavailable [phone] Naveen Osullivan MD A Primary Care Provider [phone] ABRAN, NAVEEN A Primary Care Unavailable ZACARLOS TAYLA R Referring Unavailable ZAHOMICHAELA TAYLA R Attending Unavailable OSULLIVAN, NAVEEN A Primary Care Unavailable ZAHOMICHAELA, TAYLA R Referring Unavailable ZACARLOS TAYLA R Attending Unavailable OSULLIVAN, NAVEEN A Primary Care Unavailable OSULLIVAN, NAVEEN A Primary Care Unavailable DAHIANAMADAY Admitting Unavailable DAHIANA, MADAY Attending Unavailable OSULLIVAN, NAVEEN A Referring Unavailable DAHIANA, MADAY Attending Unavailable OSULLIVAN, NAVEEN A Primary Care Unavailable CHARBEL ARTEAGA Attending Unavailable OSULLIVAN, NAVEEN A Primary Care Unavailable SELF, SELF Referring Unavailable OSULLIVAN, NAVEEN A Referring Unavailable OSULLIVAN, NAVEEN A Primary Care Unavailable DAHIANA, MADAY Attending Unavailable OSULLIVAN, NAVEEN A Primary Care Unavailable OSULLIVAN, NAVEEN A Primary Care Unavailable ZAHOMICHAELA, TAYLA R Attending Unavailable COREY, TAYLA R Referring Unavailable DAHIANA, MADAY Attending Unavailable OSULLIVAN, NAVEEN A Primary Care Unavailable ZAHOMICHAELA, TAYLA R Referring Unavailable OSULLIVAN, NAVEEN A Primary Care Unavailable ZAHOMICHAELA TAYLA R Referring Unavailable ZAHOMICHAELA, TAYLA R Attending Unavailable DAHIANA, MADAY Attending Unavailable OSULLIVAN, NAVEEN A Primary Care Unavailable ZAHORUJKO, TAYLA R Referring Unavailable GRANT, MELODY Referring Unavailable GRANTMELODY Attending Unavailable OSULLIVAN, NAVEEN A Primary Care Unavailable ОЛЬГА BROWN Attending Unavailable OSULLIVAN, NAVEEN A Primary Care Unavailable SELF, SELF Referring Unavailable CELIO STEVENSON Attending Unavailable OSULLIVANJOHNATHANIC A Primary Care Unavailable SELF, SELF Referring Unavailable CELIO STEVENSON Referring Unavailable CELIO STEVENSON Attending Unavailable OSULLIVAN, NAVEEN A Primary Care Unavailable MADAY TALBOT Attending Unavailable OSULLIVAN, NAVEEN A Primary Care Unavailable OSULLIVANJOHNATHANIC A Referring Unavailable OSULLIVAN, NAVEEN A Primary Care Unavailable JUAN JOSE HA Attending JUAN JOSE Perez Admitting NAVEEN Deluca A Referring Unavailable OSULLIVANJOHNATHANIC A Primary Care Unavailable VON TOBIAS Attending Unavailable MADAY TALBOT Attending Unavailable NAVEEN OSULLIVAN A Primary Care Unavailable MADAY TALBOT Admitting Unavailable Allergies Allergy Classification Reported Allergen(s) Allergy Type Date of Onset Reaction(s) Facility (20 sources) Lanolin Drug Allergy 09-29-2008 [facility] (20 sources) nickel sulfate Drug Allergy 12-09-2008 [facility] (20 sources) *Adhesive Tape Propensity to adverse reactions 03-22-2016 [facility] Medications Current Medications Medication Drug [...] Coronary atherosclerosis; Translations: [Atherosclerotic heart disease of alturas coronary artery without angina pectoris] Onset: 5 [...] [Other diseases of vocal cords] 02-21-2023 Episodic Residual codes; unclassified (20 sources) Obstructive [...] of skin, unspecified] Onset: 01-30-2016 01-30-2016 Episodic Other upper respiratory disease (2 sources) Other diseases of vocal cords; Translations: [Other diseases of vocal cords] Onset: 02-21-2023 Episodic Spondylosis; intervertebral disc disorders; other back [...] mm[Hg] Juan Jose Ha MD Work Phone: [facility] 03-19-2023 12:15-0500 Heart rate 76 /min Juan Jose Ha MD Work Phone: [facility] 03-19-2023 12:15-0500 Respiratory rate 20 /min Juan Jose Ha MD Work Phone: [facility] 03-19-2023 12:15-0500 SaO2% (BldA) [Mass fraction] 96 % Juan Jose Ha MD Work Phone: [facility] 03-19-2023 12:15-0500 Systolic blood pressure 128 mm[Hg] Juan Jose Ha MD Work Phone: [facility] 03-19-2023 06:39-0500 Body height 149.9 cm Juan Jose Ha MD Work Phone: [facility] 03-19-2023 06:39-0500 Body mass index (BMI) [Ratio] 34.91 kg/m2 Juan Jose Ha MD Work Phone: [facility] 03-19-2023 06:39-0500 Body temperature 98.2 [degF] Juan Jose Ha MD Work Phone: [facility] 03-19-2023 06:39-0500 Body weight 78.4 kg Juan Jose Ha MD Work Phone: [facility] 03-05-2023 09:00-0500 Body height 149.9 cm Tayla Zahorujko PAC Work Phone: [facility] 03-05-2023 09:00-0500 Body mass index (BMI) [Ratio] 35.14 kg/m2 Tayla Zahorujko PAC Work Phone: [facility] 03-05-2023 09:00-0500 Body weight 78.93 kg Tayla Zahorujko PAC Work Phone: [facility] 03-05-2023 09:00-0500 Diastolic blood pressure 74 mm[Hg] Tayla Zahorujko PAC Work Phone: [facility] 03-05-2023 09:00-0500 Heart rate 80 /min Tayla Zahorujko PAC Work Phone: [facility] 03-05-2023 09:00-0500 Systolic blood pressure 126 mm[Hg] Tayla Zahorujko PAC Work Phone: [facility] 02-21-2023 15:21-0500 Body height 149.9 cm Von Tobias MD Work Phone: [facility] 02-21-2023 15:21-0500 Body mass index (BMI) [Ratio] 35.14 kg/m2 Von Tobias MD Work Phone: [facility] 02-21-2023 15:21-0500 Body weight 78.93 kg Von Tobias MD Work Phone: [facility] 02-21-2023 15:21-0500 Respiratory rate 14 /min Von Tobias MD Work Phone: [facility] 02-19-2023 11:55-0500 Body height 149.9 cm Tayla Zahorujko PAC Work Phone: [facility] 02-19-2023 11:55-0500 Body mass index (BMI) [Ratio] 35.2 kg/m2 Tayla Zahorujko PAC Work Phone: [facility] 02-19-2023 11:55-0500 Body weight 79.1 kg Tayla Zahorujko PAC Work Phone: [facility] 02-19-2023 11:55-0500 Diastolic blood pressure 78 mm[Hg] Tayla Zahorujko PAC Work Phone: [facility] 02-19-2023 11:55-0500 Systolic blood pressure 146 mm[Hg] Tayla Zahorujko PAC Work Phone: [facility] 02-19-2023 10:26-0500 Body height 149.9 cm Charbel Arteaga MD Work Phone: [facility] 02-19-2023 10:26-0500 Body mass index (BMI) [Ratio] 35.22 kg/m2 Charbel Arteaga MD Work Phone: 4(291)065-390413 [address] 02-19-2023 10:26-0500 Body weight 79.11 kg Charbel Arteaga MD Work Phone: 5(306)061-484713 [address] 02-19-2023 10:26-0500 Diastolic blood pressure 78 mm[Hg] Charbel Arteaga MD Work Phone: 2(955)078-270213 [address] 02-19-2023 10:26-0500 Heart rate 78 /min Charbel Arteaga MD Work Phone: 2(769)279-212413 [address] 02-19-2023 10:26-0500 Systolic blood pressure 146 mm[Hg] Charbel Arteaga MD Work Phone: 2(449)332-02[address] [place] [address] 02-03-2023 09:31-0400 Body height 149.9 cm Maday Talbot MD Work Phone: [facility] 02-03-2023 09:31-0400 Body mass index (BMI) [Ratio] 35.39 kg/m2 Maday Talobt MD Work Phone: [facility] 02-03-2023 09:31-0400 Body weight 79.47 kg Maday Talbot MD Work Phone: 9(692)775-556136 [address] 02-03-2023 09:31-0400 Diastolic blood pressure 72 mm[Hg] Maday Talbot MD Work Phone: [facility] 02-03-2023 09:31-0400 Heart rate 70 /min Maday Talbot MD Work Phone: [facility] 02-03-2023 09:31-0400 Systolic blood pressure 141 mm[Hg] Maday Talbot MD Work Phone: [facility] 01-21-2023 13:10-0400 Heart rate 67 /min Maday Talbot MD Work Phone: 7(231)339-376637 [place] [address] 01-21-2023 13:10-0400 Respiratory rate 23 /min Maday Talbot MD Work Phone: 6(279)202-454837 [place] [address] 01-21-2023 13:10-0400 SaO2% (BldA) [Mass fraction] 95 % Maday Talbot MD Work Phone: 1(392)897-544537 [place] [address] 01-21-2023 13:00-0400 Diastolic blood pressure 70 mm[Hg] Maday Talbot MD Work Phone: 0(913)317-080137 [place] [address] 01-21-2023 13:00-0400 Systolic blood pressure 151 mm[Hg] Maday Talbot MD Work Phone: 4(997)708-384937 [place] [address] 01-21-2023 08:45-0400 Body temperature 97.9 [degF] Maday Talbot MD Work Phone: 4(290)731-882137 [place] [address] 10-30-2022 08:36-0400 Body height 149.9 cm Maday Talbot MD Work Phone: 1(018)592-020337 [place] [address] 10-30-2022 08:36-0400 Body mass index (BMI) [Ratio] 36.07 kg/m2 Maday Talbot MD Work Phone: 8(071)551-280737 [place] [address] 10-30-2022 08:36-0400 Body weight 81.01 kg Maday Talbot MD Work Phone: 1(536)788-672937 [place] [address] 10-30-2022 08:36-0400 Diastolic blood pressure 80 mm[Hg] Maday Talbot MD Work Phone: 2(184)267-567037 [place] [address] 10-30-2022 08:36-0400 Heart rate 73 /min Maday Talbot MD Work Phone: 4(713)870-424737 [place] [address] 10-30-2022 08:36-0400 Respiratory rate 20 /min Maday Talbot MD Work Phone: 0(464)157-220937 [place] [address] 10-30-2022 08:36-0400 SaO2% (BldA) [Mass fraction] 97 % Maday Talbot MD Work Phone: 6(985)007-052337 [place] [address] 10-30-2022 08:36-0400 Systolic blood pressure 146 mm[Hg] Maday Talbot MD Work Phone: 9(932)351-063737 [place] [address] 10-30-2022 07:54-0400 Body mass index (BMI) [Ratio] 34.18 kg/m2 Tayla Zahorujko PAC Work Phone: 4(615)104-235437 [place] [address] 10-30-2022 07:54-0400 Body weight 79.38 kg Tayla Zahorujko PAC Work Phone: 4(016)879-311837 [place] [address] 10-30-2022 07:54-0400 Diastolic blood pressure 72 mm[Hg] Tayla Zahorujko PAC Work Phone: 1(712)603-035037 [place] [address] 10-30-2022 07:54-0400 Heart rate 63 /min Tayla Zahorujko PAC Work Phone: 3(630)047-824137 [place] [address] 10-30-2022 07:54-0400 Systolic blood pressure 158 mm[Hg] Tayla Zahorujko PAC Work Phone: 9(484)351-683737 [place] [address] 09-11-2022 12:03-0400 Body height 152.4 cm Maday Talbot MD Work Phone: 8(313)211-799237 [place] [address] 09-11-2022 12:03-0400 Body mass index (BMI) [Ratio] 34.43 kg/m2 Maday Talbot MD Work Phone: 4(287)793-319837 [place] [address] 09-11-2022 12:03-0400 Body temperature 97.9 [degF] Maday Talbot MD Work Phone: 8(166)522-228837 [place] [address] 09-11-2022 12:03-0400 Body weight 79.97 kg Maday Talbot MD Work Phone: 1(568)799-960237 [place] [address] 09-11-2022 12:03-0400 Diastolic blood pressure 92 mm[Hg] Maday Talbot MD Work Phone: [facility] 09-11-2022 12:03-0400 Heart rate 103 /min Maday Talbot MD Work Phone: [facility] 09-11-2022 12:03-0400 SaO2% (BldA) [Mass fraction] 95 % Maday Talbot MD Work Phone: [facility] 09-11-2022 12:03-0400 Systolic blood pressure 167 mm[Hg] Maday Talbot MD Work Phone: [facility] 08-20-2022 14:44-0400 Body height 152.4 cm Celio Stevenson MD Work Phone: [facility] 08-20-2022 14:44-0400 Body mass index (BMI) [Ratio] 34.18 kg/m2 Celio Stevenson MD Work Phone: [facility] 08-20-2022 14:44-0400 Body weight 79.38 kg Celio Stevenson MD Work Phone: [facility] 08-20-2022 14:44-0400 Heart rate 82 /min Celio Stevenson MD Work Phone: [facility] 08-20-2022 14:44-0400 SaO2% (BldA) [Mass fraction] 96 % Celio Stevenson MD Work Phone: [facility] 07-01-2022 17:49-0400 Diastolic blood pressure 79 mm[Hg] Melody Ren MD Work Phone: [facility] 07-01-2022 17:49-0400 Heart rate 97 /min Melody Ren MD Work Phone: [facility] 07-01-2022 17:49-0400 Systolic blood pressure 178 mm[Hg] Melody Ren MD Work Phone: 2(250)666-945845 [place] [address] 07-01-2022 17:47-0400 Body height 152.4 cm Melody Ren MD Work Phone: 9(005)745-085624 [place] [address] 06-05-2022 15:01-0500 Body height 152.4 cm Melody Ren MD Work Phone: 1(243)077-132624 [place] [address] 06-05-2022 15:01-0500 Diastolic blood pressure 79 mm[Hg] Melody Ren MD Work Phone: 1(904)004-397324 [place] [address] 06-05-2022 15:01-0500 Heart rate 86 /min Melody Ren MD Work Phone: 6(987)342-692724 [place] [address] 06-05-2022 15:01-0500 Systolic blood pressure 180 mm[Hg] Melody Ren MD Work Phone: 4(389)725-762024 [place] [address] 04-25-2022 13:12-0500 Body height 152.4 cm Melody Ren MD Work Phone: 7(923)062-965824 [place] [address] 04-25-2022 13:12-0500 Body mass index (BMI) [Ratio] 34.65 kg/m2 Melody Ren MD Work Phone: 3(077)123-609324 [place] [address] 04-25-2022 13:12-0500 Body weight 80.47 kg Melody Ren MD Work Phone: 7(230)466-864924 [place] [address] 04-25-2022 13:12-0500 Diastolic blood pressure 72 mm[Hg] Melody Ren MD Work Phone: 7(543)031-855524 [place] [address] 04-25-2022 13:12-0500 Heart rate 80 /min Melody Ren MD Work Phone: 9(246)256-540824 [place] [address] 04-25-2022 13:12-0500 Systolic blood pressure 138 mm[Hg] Melody Ren MD Work Phone: 3(862)275-381624 [place] [address] 09-05-2021 14:41-0400 Body height 152.4 cm Maday Talbot MD Work Phone: [facility] 09-05-2021 14:41-0400 Body mass index (BMI) [Ratio] 32.22 kg/m2 Maday Talbot MD Work Phone: [facility] 09-05-2021 14:41-0400 Body weight 74.84 kg Maday Talbot MD Work Phone: [facility] 09-05-2021 14:41-0400 Diastolic blood pressure 71 mm[Hg] Maday Talbot MD Work Phone: [facility] 09-05-2021 14:41-0400 Heart rate 79 /min Maday Talbot MD Work Phone: [facility] 09-05-2021 14:41-0400 SaO2% (BldA) [Mass fraction] 98 % Maday Talbot MD Work Phone: [facility] 09-05-2021 14:41-0400 Systolic blood pressure 126 mm[Hg] Maday Talbot MD Work Phone: [facility] Encounters Encounter Date Encounter Type Care Provider Facility Start: 05-28-2023 ambulatory CELIO STEVENSON [facility] y:[facility] Start: 04-15-2023 Evaluation and management of inpatient NAVEEN A OSULLIVAN Facility:[facility] Start: 04-14-2023 ambulatory NAVEEN Richardson [facility] [place] Facility:[facility] Start: 04-10-2023 Telephone encounter Larisa Brooks RN [facility] Procedures Date Procedure Procedure Detail Performing Clinician [...] Detail Author Start: 08-21-2031 Tetanus vaccination TETANUS [facility] Start: 10-31-2023 Potassium [Moles/volume] in Serum or Plasma POTASSIUM [facility] Start: 05-28-2023 End: 05-28-2023 Patient encounter procedure [facility] Start: 04-25-2023 Thyroid stimulating hormone measurement TSH [facility] Start: 04-14-2023 End: 04-14-2023 Patient encounter procedure 04/14/2023 1:30 PM EST Office Visit [facility] [address] [place] [address] [place] [address] [place] [address] rd [address] [place] [address] [facility] Start: 03-24-2023 End: 03-24-2024 Basic metabolic 2000 panel - Serum or Plasma BASIC METABOLIC PANEL Lab Routine 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), bioprosthetic Permanent atrial fibrillation Essential hypertension Expected: 03/24/2023, Expires: 03/24/2024 [facility] Immunizations Immunization Date Immunization Notes Care Provider Fa cility 02-01-2022 Influenza Vaccine, Quadrivalent, Adjuvanted Melody Ren MD Work Phone: [facility] 02-01-2022 influenza virus vacc ine, unspecified formulation Maday Talbot MD Work Phone: [facility] 08-20-2021 COVID-19 vaccine, Michael Hodges, 50 mcg/0.25 mL booster Melody Ren MD Work Phone: [facility] 08-20-2021 tetanus toxoid, redu jens diphtheria toxoid, and acellular pertussis vaccine, adsorbed Melody Ren MD Work Phone: 0(529)770-632406 [address] 03-02-2021 COVID-19 vaccine, Michael Hodges, 50 mcg/0.25 mL booster Melody Ren MD Work Phone: 9(707)652-120406 [address] 02-19-2021 Influenza Vaccine, Quadrivalent, Adjuvanted Melody Ren MD Work Phone: [facility] 06-28-2020 hepatitis A vaccine, adult dosage Melody Ren MD Work Phone: 8(443)377-860306 [address] 05-26-2020 COVID-19 vaccine, Michael Hodges, 100 mcg/0.5 mL Melody Ren MD Work Phone: 9(813)225-505806 [address] 05-08-2020 COVID-19 vaccine, Michael Hodges, 100 mcg/0.5 mL Melody Ren MD Work Phone: 6(441)141-460906 [address] 04-28-2020 COVID-19 vaccine, Michael Hodges, 100 mcg/0.5 mL Mleody Ren MD Work Phone: 1(604)216-402106 [address] 04-07-2020 COVID-19 vaccine, Michael Hodges, 100 mcg/0.5 mL Melody Ren MD Work Phone: [facility] 02-21-2020 zoster vaccine recombinant Melody Ren MD Work Phone: [facility] 10-29-2019 hepatitis A vaccine, adult dosage Melody Ren MD Work Phone: [facility] 10-29-2019 zoster vaccine recombinant Melody Ren MD Work Phone: [facility] 01-07-2018 influenza, injectabl e, quadrivalent, contains preservative Melody Ren MD Work Phone: [facility] 01-06-2018 influenza, high dose seasonal, preservative-free Melody Ren MD Work Phone: [facility] 01-03-2017 influenza, injectabl e, quadrivalent, contains preservative Melody Ren MD Work Phone: [facility] 01-06-2016 influenza virus vacc ine, unspecified formulation Maday Talbot MD Work Phone: [facility] 01-04-2016 influenza, seasonal, injectable Melody Ren MD Work Phone: [facility] 02-05-2014 pneumococcal conjuga te vaccine, 13 valfernanda Ren MD Work Phone: [facility] 08-05-2005 pneumococcal polysaccharide vaccine, 23 valent Melody Ren MD Work Phone: [facility] Payers Date Payer Category Payer Medicare MEDICARE [employer] HMO PPO MEDICARE [employer] HMO PPO [id number] 2017-Present [address] [address] [place] [address] [id number] 2017 Medicare [id number] 1940 Unknown [id number] 1939 Unknown [id number] 1939 Unknown [id number] 1939 Unknown [id number] .[id number] 1939 Unknown [id number] [id number] 1939 Unknown [id number] [id number] 1939 Unknown [id number] [id number] 1939 Unknown [id number] [id number] 1939 Unknown [id number] [id number] 1939 Unknown [id number] [id number] 1939 Unknown [id number] [id number] 1939 Unknown [id number] [id number] 1939 Unknown [id number] [id number] 1939 Unknown [id number] [id number] 1939 Unknown [id number] [id number] 1939 Unknown [id number] [id number] 1939 Unknown [id number] [id number] 1939 Unknown [id number] [id number] 1939 Unknown [id number] [id number] 1939 Unknown [id number] Social History Date Type Detail Facility Start: 01-15-2016 End: 02-19-2023 Tobacco smoking status NHIS Ex-smoker [facility] Start: 1956 End: 04-07-2003 History of tobacco use Current smoker [facility] Start: 1956 End: 04-07-2003 History of tobacco use Cigarette Smoker [facility] Start: 01-15-2016 End: 04-14-2023 Cigarettes smoked current (pack per day) - Reported 1 [facility] Start: 01-15-2016 End: 02-19-2023 Tobacco use and exposure Smokeless tobacco non-user [facility] Start: 09-05-2021 End: 03-19-2023 Alcohol intake Current drinker of alcohol (finding) [facility] Start: 12-09-2008 History SDOH Alcohol Comment occasionally [facility] Start: 02-09-2015 End: 04-25-2022 Tobacco Comment quit 11 years ago [facility] Start: 1940 Sex Assigned At Not on file O [facility] Start: 03-03-2022 End: 04-25-2022 Exposure to SARS-CoV-2 (event) Unable to assess [facility] Start: 04-25-2022 Alcohol Comment Wine with dinn er once in awhile [facility] Start: 05-26-2022 End: 06-05-2022 Exposure to SARS-CoV-2 (event) Not sure [facility] Start: 09-11-2022 End: 04-14-2023 Tobacco use panel [facility] Gender identity Identifies as fe male gender (finding) [facility] Medical Equipment Procedure Code Equipment Code Equipment Origin al Text Equipment Identifier Dates Nichole Starr 58cm - [id number] Start: 02-01-2016 Valve Tavr Evolu t 26 - [id number] Start: 01-31-2016 Clinical Notes 09-05-2021 to 04-15-2023 Telephone Encounter - Vanessa Ruggiero RN - 04/15/2023 3:02 PM ESTTelephone Encounter - Vanessa Ruggiero RN - 04/15/2023 3:02 PM ESTTelephone Encounter - Vanessa Ruggiero RN - 04/15/2023 2:27 PM EST Note Date & Type Note Facility 04-15-2023 Telephone encounter Note Faxed lab order [facility] 04-15-2023 Miscellaneous Notes Faxed lab order MALINA patent's daughter, Silvestre. Will fax lab orders to [facility]. Silvestre wants to know if patient can start cardiac rehab in [place]. After labs ordered will need faxed to [phone] outpatient lab. Images from the original [...] Outside Labs: Received: Yesterday Charbel Arteaga MD Javier Chavez [facility] Pool Outside labs noted: K of 3.5 and BUN/Cr of 28/0.95. Please check on the patient with respect to any ongoing symptoms / concerns - especially volume related - which will help guide further care. Spoke with pt's daughter Silvestre. Reports Dot is currently not feeling well - being treated by Client Manager [employer] for an URI with prednisone and antibiotic. [...] needed. She will follow up with a [employer] message when she gets home. Pt is interested in cardiac rehab. documented in this encounter [facility] 04-15-2023 Telephone encounter Note SW cherie's daughter, Silvestre. Will fax lab orders to [facility]. Silvestre wants to know if patient can start cardiac rehab in [place]. After labs ordered will need faxed to [phone], [facility] outpatient lab. [facility] 04-15-2023 Telephone encounter Note Images from the original note were not included. Charbel Arteaga MD You21 hours ago (4:23 PM) Plan: continue the furosemide / lasix at 20 mg po bid and the K supplement at 10 mEq po BID; monitor symptoms / findings; obtain a chem 6 on with results to this office. Thank you. [facility] 04-11-2023 Telephone encounter Note SW patient's daughter Silvestre, gave Dr Arteaga's recommendations. [facility] 04-11-2023 Miscellaneous Notes SW patient's [...] Outside Labs: Received: Yesterday Charbel Arteaga MD [facility] Triage Pool Outside labs noted: K of 3.5 and BUN/Cr of 28/0.95. Please check on the patient with respect to any ongoing symptoms / concerns - especially volume related - which will help guide further care. Spoke with pt's daughter Silvestre. Reports Dot is currently not feeling well - being treated by [employer] for an URI with prednisone and antibiotic. [...] needed. She will follow up with a [employer] message when she gets home. Pt is interested in cardiac rehab. documented in this encounter [facility] 04-11-2023 Telephone encounter Note Images [...] to her lower extremity edema. Thank you. [facility] 04-10-2023 Telephone encounter Note Images from the original note were not included. Outside Labs: Received: Yesterday Charbel Arteaga MD [facility] Outside labs noted: K of 3.5 and BUN/Cr of 28/0.95. Please check on the patient with respect to any ongoing symptoms / concerns - especially volume related - which will help guide further care. Spoke with pt's daughter Silvestre. Reports Dot is currently not feeling well - being treated by [employer] for an URI with prednisone and antibiotic. [...] needed. She will follow up with a [employer] message when she gets home. Pt is interested in cardiac rehab. [facility] 04-09-2023 Telephone encounter Note Received lab results from [facility]. Sent to scanning for upload into chart. Copy given to Dr. Arteaga. [facility] 04-09-2023 Miscellaneous Notes Received lab results from [facility]. Sent to scanning for upload into chart. Copy given to Dr. Arteaga. Faxed to [phone] The LVEDP is a blood pressure recording [...] labs are signed, they need faxed to [facility]. Spoke with patient's daughter regarding the [...] Cardiac cath: Received: Today Charbel Arteaga MD [facility] Pool Please update the patient that her cardiac cath procedure was received / reviewed. 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 She did not require additional PTCA. The recommendation is for her to continue medical therapy and follow up. Thank you. Sending mychart. documented in this encounter [facility] 03-24-2023 Telephone encounter Note Faxed to [phone] [facility] 03-24-2023 Telephone encounter Note The [...] labs are signed, they need faxed to [facility]. [facility] 03-21-2023 Telephone encounter Note Spoke [...] Brief Cardiac Catheterization Procedure Note Kiara Martinez ([id number]) Pre Procedural Diagnosis Abnormal stress test [R94.39] [...] Swapnil Gilmore MD - Fellow Procedural Staff Environmental Protection Forester: Vandana Knox RN; Patty Gallegos RN Documenter: [...] fib. Hayley Melendez RN PREPARING FOR YOUR TALK SHOW HOST PROCEDURE Your catheterization is scheduled on 03/19/23 at: [facility] at the [facility] located at [address] [place] [address]. You are to arrive at [facility] on the 1st floor at 6:00 AM You may use library circulation assistant parking ($10) or park in the [facility] [employer] [facility] just past the [place] ($3). There is a walkway from the 2nd floor of the garage into the [employer] Lobby. You are to have nothing to [...] please call NOW to notify the lab ([phone]). You may receive sedation during your procedure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 cardiovascular system function study [facility] Diagnosis 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 * Cardiac Cath [facility] After - Wrist Site ([facility]) ([facility]) [facility] Purpose Family History No [...] DUPLEX CAROTID BILATERAL Maday Talbot MD [address] [facility] 5th Floor [address] [place] [address] Referral ID Status Reason Start Date Expiration Date V isits Requested Visits Authorized [id number] New Request 09/05/2021 09/30/2022 1 1 Specialty Diagnoses / Procedures Referred By Contac t Referred To Contact Neurology Diagnoses Bilateral carotid artery stenosis Dizziness Maday Talbot MD [address] [facility] 5th Floor [address] [place] [address] Referral ID Status Reason Start Date Expiration Date V isits Requested Visits Authorized [id number] New Request 09/05/2021 09/30/2022 1 1 Specialty Diagnoses / Procedures Referred By Contac t Referred To Contact Diagnoses Loss of memory Procedures MRI BRAIN WITHOUT CONTRAST NH MRI BRAIN Melody Ren MD [address] [address] Referral ID Status Reason Start Date Expiration Date V isits Requested Visits Authorized [id number] New Request 04/25/2022 05/20/2023 1 1 Referral ID Status Reason Start Date Expiration Date Visits Re quested Visits Authorized [id number] Closed 04/25/2022 05/20/2023 1 1 Specialty Diagnoses / Procedures Referred By Contac t Referred To Contact Diagnoses Peripheral vertigo involving left ear Procedures MRI INTERNAL AUDITORY CANAL WITH AND WITHOUT CONTRAST NH MRI BRAIN COMBO Melody Ren MD [address] [address] Referral ID Status Reason Start Date Expiration Date Visits Re quested Visits Authorized [id number] Closed 06/07/2022 07/02/2023 1 1 Specialty Diagnoses / Procedures Referred By Contac t Referred To Contact Diagnoses Vestibular schwannoma Procedures MRI INTERNAL AUDITORY CANAL WITH AND WITHOUT CONTRAST NH MRI BRAIN MICAELAO Celio Stevenson MD [address] [address] Referral ID Status Reason Start Date Expiration Date V isits Requested Visits Authorized [id number] New Request 08/20/2022 09/14/2023 1 1 Specialty Diagnoses / Procedures Referred By Contac t Referred To Contact Diagnoses Bilateral carotid artery stenosis Procedures VASC DUPLEX CAROTID BILATERAL Tayla Carter R, PAC [address] [place] [address] Referral ID Status Reason Start Date Expiration Date V isits Requested Visits Authorized [id number] New Request 03/13/2022 04/07/2023 1 1 Specialty Diagnoses / Procedures Referred By Contac t Referred To Contact Diagnoses Bilateral carotid artery stenosis Procedures CT ANGIO BRAIN/NECK NH CT ANGIO,HEAD COMBO,INCL IMAGE PROCESS NH CT ANGIO,NECK COMBO,INCL IMAGE PROCESS Tayla Carter R, PAC [address] [place] [address] Referral ID Status Reason Start Date Expiration Date V isits Requested Visits Authorized [id number] New Request 09/11/2022 10/06/2023 1 1 Specialty Diagnoses / Procedures Referred By Contac t Referred To Contact Diagnoses Asymptomatic bilateral carotid artery stenosis Procedures ECG Tayla Carter R, PAC [address] [place] [address] Referral ID Status Reason Start Date Expiration Date V isits Requested Visits Authorized [id number] New Request 10/30/2022 11/24/2023 1 1 Referral ID Status Reason Start Date Expiration Date Visits Re quested Visits Authorized [id number] Closed 09/11/2022 10/06/2023 1 1 Specialty Diagnoses / Procedures Referred By Contac t Referred To Contact Echocardiography Diagnoses 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 Procedures ECHOCARDIOGRAM NH ECHO HEART XTHORACIC,COMPLETE W DOPPLER Maday Talbot MD [address] [facility] [address] 5th [address] [address] [address] [place] [address] Referral ID Status Reason Start Date Expiration Date Visits Re quested Visits Authorized [id number] Closed 01/31/2023 02/25/2024 1 1 Specialty Diagnoses / Procedures Referred By Contac t Referred To Contact Diagnoses 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 Procedures NUC MYOCARD PERF STRESS MIBI PHARM NH CHG MYOCARDIAL SPECT MULTIPLE STUDIES CHG MYOCARDIAL SPECT MULTIPLE STUDIES-T NH CARDIAC STRESS TST,INTERP/REPT ONLY NH CV STRS TST XERS&/OR RX CONT ECG W/O I&R Maday Talbot MD [facility] 5th Floor [address] [address] Referral ID Status Reason Start Date Expiration Date Visits Re quested Visits Authorized [id number] Closed 01/31/2023 02/25/2024 1 1 Specialty Diagnoses / Procedures Referred By Contac t Referred To Contact Procedures ECG Escobar Reaves MD [address] [place] [address] Referral ID Status Reason Start Date Expiration Date V isits Requested Visits Authorized [id number] New Request 03/19/2023 04/12/2024 1 1 Additional Source Comments INFORMATION SOURCE (unrecogn ized section and content) DATE CREATED AUTHOR AUTHOR'S ORGANIZ ATION 06/07/2023 [facility] Reason for Visit (unrecogniz ed section and content) Specialty Diagnoses / Procedures Referred By Contac t Referred To Contact Diagnoses Bilateral carotid artery stenosis Procedures VASC DUPLEX CAROTID BILATERAL VASC DUPLEX CAROTID BILATERAL Maday Talbot MD [address] [facility] 5th [address] [address] Referral ID Status Reason Start Date Expiration Date V isits Requested Visits Authorized [id number] New Request 09/05/2021 09/30/2022 1 1 Reason Comments New Patient Specialty Diagnoses / Procedures Referred By Contac t Referred To Contact Neurology Diagnoses Bilateral carotid artery stenosis Dizziness Maday Talbot MD [address] [facility] 5th [address] [address] Referral ID Status Reason Start Date Expiration Date V isits Requested Visits Authorized [id number] New Request 09/05/2021 09/30/2022 1 1 Specialty Diagnoses / Procedures Referred By Courtney michele Referred To Contact Diagnoses Loss of memory Procedures MRI BRAIN WITHOUT CONTRAST NH MRI BRAIN Melody Ren MD [address] [address] Referral ID Status Reason Start Date Expiration Date Visits Re quested Visits Authorized [id number] Closed 04/25/2022 05/20/2023 1 1 Specialty Diagnoses / Procedures Referred By Courtney t Referred To Contact Diagnoses Peripheral vertigo involving left ear Procedures MRI INTERNAL AUDITORY CANAL WITH AND WITHOUT CONTRAST NH MRI BRAIN COMBO Melody Ren MD [address] [address] Referral ID Status Reason Start Date Expiration Date Visits Re quested Visits Authorized [id number] Closed 06/07/2022 07/02/2023 1 1 Reason Comments Vestibular Schwanoma vestibular schwanno ma pt stated that she is a nodule behind her left ear and she gets dizzy some times Specialty Diagnoses / Procedures Referred By Courtney michele Referred To Contact Diagnoses Bilateral carotid artery stenosis Procedures VASC DUPLEX CAROTID BILATERAL Tayla Carter, PAC [address] [place] [address] Referral ID Status Reason Start Date Expiration Date V isits Requested Visits Authorized [id number] New Request 03/13/2022 04/07/2023 1 1 Reason Comments Follow-up Reason Comments Follow-up Follow up after CTA Specialty Diagnoses / Procedures Referred By Courtney michele Referred To Contact Diagnoses Bilateral carotid artery stenosis Procedures CT ANGIO BRAIN/NECK NH CT ANGIO,HEAD COMBO,INCL IMAGE PROCESS NH CT ANGIO,NECK COMBO,INCL IMAGE PROCESS Tayla Carter, PAC [address] [place] [address] Referral ID Status Reason Start Date Expiration Date Visits Re quested Visits Authorized [id number] Closed 09/11/2022 10/06/2023 1 1 Specialty Diagnoses / Procedures Referred By Courtney michele Referred To Contact Diagnoses Bilateral carotid artery stenosis Bilateral carotid artery stenosis [I65.23] Procedures NH PLACE CATH SUBSELECT ART,NECK PLACEMENT CATHETER SELECTIVE ARTERY INITIAL 2ND ORDER THORACIC/BRACHIOCEPHALIC Maday Talbot MD [address] [facility] 5th Floor [address] [place] [address] [facility] [address] [place] [address] Referral ID Status Reason Start Date Expiration Date Visits Re quested Visits Authorized [id number] 1 1 Reason Comments Surgical Follow-up Follow-up [...] due to calcified coronary lesion Procedures ECHOCARDIOGRAM NH ECHO HEART XTHORACIC,COMPLETE W DOPPLER Maday Talbot MD [address] [facility] 5th Floor [address] [address] [address] [place] [address] Referral ID Status Reason Start Date Expiration Date Visits Re quested Visits Authorized [id number] Closed 01/31/2023 02/25/2024 1 1 Reason Comments Consult Patient here for voc al cord check. 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 Procedures NUC MYOCARD PERF STRESS MIBI PHARM NH CHG MYOCARDIAL SPECT MULTIPLE STUDIES CHG MYOCARDIAL SPECT MULTIPLE STUDIES-T NH CARDIAC STRESS TST,INTERP/REPT ONLY NH CV STRS TST XERS&/OR RX CONT ECG W/O I&R Maday Talbot MD [address] [facility] 5th Floor [address] [place] [address] Referral ID Status Reason Start Date Expiration Date Visits Re quested Visits Authorized [id number] Closed 01/31/2023 02/25/2024 1 1 Specialty Diagnoses / Procedures Referred By Courtney t Referred To Contact Diagnoses Abnormal stress test Abnormal stress test [R94.39] Procedures NH CATH PLMT L HRT & ARTS W/NJX & ANGIO IMG S&I CORONARY ANGIOGRAM CORONARY BYPASS GRAFT ANGIOGRAM LEFT HEART CATHETERIZATION [facility] [address] [place] [address] [facility] [address] [place] [address] Referral ID Status Reason Start Date Expiration Date Visits Re quested Visits Authorized [id number] 1 1 Reason Onset Date Comments Results 03/20/2023 Reason Onset Date Comments Results 04/10/2023 Care Teams (unrecognized sec tion and content) Library Clerical Assistant 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 Specialty Start Date End Date Noe Rodriguez MD [address] [address] PCP - Referring 1 Cardiovascular Disease 02/07/16 Naveen Osullivan MD [address] [place], [place] [address] PCP - General Family Medicine 03/22/16 Noe Rodriguez MD 176 [facility] [address] [place] [address] Referring Provider Cardiovascular Disease 12/18/15 Larisa Jean, RN Registered Nurse 03/05/16 Library Clerical Assistant 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 Specialty Start Date End Date Noe Rodriguez MD [address] [address] PCP - Referring 1 Cardiovascular Disease 02/07/16 Naveen Osullivan MD [address] [place], [place] [address] PCP - General Family Medicine 03/22/16 Noe Rodriguez MD 176 [facility] [address] [place] [address] Referring Provider Cardiovascular Disease 12/18/15 Larisa Jean, RN Registered Nurse 03/05/16 Library Clerical Assistant 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 Specialty Start Date End Date Noe Rodriguez MD [address] [place] [address] PCP - Referring 1 Cardiovascular Disease 02/07/16 Naveen Osullivan MD [address] [place] [address] PCP - General Family Medicine 03/22/16 Noe Rodriguez MD [address] [facility] [address] [place] [address] Referring Provider Cardiovascular Disease 12/18/15 Larisa Jean, RN Registered Nurse 03/05/16 Library Clerical Assistant 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 Specialty Start Date End Date Noe Rodriguez MD [address] [place] [address] PCP - Referring 1 Cardiovascular Disease 02/07/16 Naveen Osullivan MD [address] [place] [address] PCP - General Family Medicine 03/22/16 Noe Rodriguez MD [address] [facility] [address] [place] [address] Referring Provider Cardiovascular Disease 12/18/15 Larisa Jean, RN Registered Nurse 03/05/16 Library Clerical Assistant 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 Specialty Start Date End Date Noe Rodriguez MD [address] [place] [address] PCP - Referring 1 Cardiovascular Disease 02/07/16 Naveen Osullivan MD [address] [place] [address] PCP - General Family Medicine 03/22/16 Noe Rodriguez MD [address] [facility] [address] [place] [address] Referring Provider Cardiovascular Disease 12/18/15 Larisa Jean, RN Registered Nurse 03/05/16 Library Clerical Assistant 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 Specialty Start Date End Date Noe Rodriguez MD [address] [place] [address] PCP - Referring 1 Cardiovascular Disease 02/07/16 Naveen Osullivan MD [address] [place] [address] PCP - General Family Medicine 03/22/16 Noe Rodriguez MD [address] [facility] [address] [place] [address] Referring Provider Cardiovascular Disease 12/18/15 Larisa Jean RN Registered Nurse 03/05/16 Library Clerical Assistant Relationship Specialty Start Date End Date Noe Rodriguez MD [address] [place] [address] PCP - Referring 1 Cardiovascular Disease 02/07/16 Naveen Osullivan MD [address] [place] [address] PCP - General Family Medicine 03/22/16 Noe Rodriguez MD [address] [facility] [address] [place] [address] Referring Provider Cardiovascular Disease 12/18/15 Larisa Jean, RN Registered Nurse 03/05/16 Library Clerical Assistant Relationship Specialty Start Date End Date Noe Rodriguez MD [address] [place] [address] PCP - Referring 1 Cardiovascular Disease 02/07/16 Naveen Osullivan MD [address] [place] [address] PCP - General Family Medicine 03/22/16 Noe Rodriguez MD [address] [facility] [address] [place] [address] Referring Provider Cardiovascular Disease 12/18/15 Larisa Jean, RN Registered Nurse 03/05/16 Library Clerical Assistant Relationship Specialty Start Date End Date Noe Rodriguez MD [address] [place] [address] PCP - Referring 1 Cardiovascular Disease 02/07/16 Naveen Osullivan MD [address] [place] [address] PCP - General Family Medicine 03/22/16 Noe Rodriguez MD [address] [facility] [address] [place] [address] Referring Provider Cardiovascular Disease 12/18/15 Larisa Jean, RN Registered Nurse 03/05/16 Library Clerical Assistant Relationship Specialty Start Date End Date Noe Rodriguez MD [address] [place] [address] PCP - Referring 1 Cardiovascular Disease 02/07/16 Naveen Osullivan MD [address] [place] [address] PCP - General Family Medicine 03/22/16 Noe Rodriguez MD [address] [facility] [address] [place] [address] Referring Provider Cardiovascular Disease 12/18/15 Larisa Jean, RN Registered Nurse 03/05/16 Library Clerical Assistant Relationship Specialty Start Date End Date Noe Rodriguez MD [address] [place] [address] PCP - Referring 1 Cardiovascular Disease 02/07/16 Naveen Osullivan MD [address] [place] [address] PCP - General Family Medicine 03/22/16 Noe Rodriguez MD [address] [facility] [address] [address] [place] [address] Referring Provider Cardiovascular Disease 12/18/15 Larisa Jean RN Registered Nurse 03/05/16 Library Clerical Assistant Relationship Specialty Start Date End Date Noe Rodriguez MD [address] [place] [address] PCP - Referring 1 Cardiovascular Disease 02/07/16 Naveen Osullivan MD [address] [place] [place] [address] PCP - General Family Medicine 03/22/16 Noe Rodriguez MD [address] [place] [address] Referring Provider Cardiovascular Disease 12/18/15 Larisa Jean, RN Registered Nurse 03/05/16 Library Clerical Assistant Relationship Specialty Start Date End Date Noe Rodriguez MD [address] [place] [address] PCP - Referring 1 Cardiovascular Disease 02/07/16 Naveen Osullivan MD [address] [place] [address] PCP - General Family Medicine 03/22/16 Noe Rodriguez MD [address] [place] [address] Referring Provider Cardiovascular Disease 12/18/15 Larisa Jean, RN Registered Nurse 03/05/16 Library Clerical Assistant Relationship Specialty Start Date End Date Noe Rodriguez MD [address] [place] [address] PCP - Referring 1 Cardiovascular Disease 02/07/16 Naveen Osullivan MD [address] [place] [address] PCP - General Family Medicine 03/22/16 Noe Rodriguez MD [address] [place] [address] Referring Provider Cardiovascular Disease 12/18/15 Larisa Jean, RN Registered Nurse 03/05/16 Library Clerical Assistant Relationship Specialty Start Date End Date Noe Rodriguez MD [address] [place] [address] PCP - Referring 1 Cardiovascular Disease 02/07/16 Naveen Osullivan MD [address] [place] [address] PCP - General Family Medicine 03/22/16 Noe Rodriguez MD [address] [place] [address] Referring Provider Cardiovascular Disease 12/18/15 Larisa Jean, RN Registered Nurse 03/05/16 Library Clerical Assistant Relationship Specialty Start Date End Date Noe Rodriguez MD [address] [place] [address] PCP - Referring 1 Cardiovascular Disease 02/07/16 Naveen Osullivan MD [address] [place] [address] PCP - General Family Medicine 03/22/16 Noe Rodriguez MD [address] [place] [address] Referring Provider Cardiovascular Disease 12/18/15 Larisa Jean, RN Registered Nurse 03/05/16 03/05/23 Library Clerical Assistant Relationship Specialty Start Date End Date Noe Rodriguez MD [address] [place] [address] PCP - Referring 1 Cardiovascular Disease 02/07/16 Naveen Osullivan MD [address] [place] [address] PCP - General Family Medicine 03/22/16 Noe Rodriguez MD [address] [place] [address] Referring Provider Cardiovascular Disease 12/18/15 Library Clerical Assistant Relationship Specialty Start Date End Date Noe Rodriguez MD [address] [place] [address] PCP - Referring 1 Cardiovascular Disease 02/07/16 Naveen Osullivan MD [address] [place] [address] PCP - General Family Medicine 03/22/16 Noe Rodriguez MD [address] [place] [address] Referring Provider Cardiovascular Disease 12/18/15 Library Clerical Assistant Relationship Specialty Start Date End Date Noe Rodriguez MD [address] [place] [address] PCP - Referring 1 Cardiovascular Disease 02/07/16 Naveen Osullivan MD [address] [place] [address] PCP - General Family Medicine 03/22/16 Noe Rodriguez MD [address] [place] [address] Referring Provider Cardiovascular Disease 12/18/15 Library Clerical Assistant Relationship Specialty Start Date End Date Noe Rodriguez MD [address] [place] [address] PCP - Referring 1 Cardiovascular Disease 02/07/16 Naveen Osullivan MD [address] [place] [address] PCP - General Family Medicine 03/22/16 Noe Rodriguez MD [address] [place] [address] Referring Provider Cardiovascular Disease 12/18/15 Scheduled Active [...] 0845, Intra-op/Intra-Proc 07 (Given - Provid er: Maday Talbot MD [...] swallow., Pre-op/Pre-Proc 0644 (Given - Provid er: Haylye Melendez RN) Continuous Medication Order 03/17/2023 03/18/2023 [...] BE BASED ON THE PRIMARY CLINICAL RECORDS. [employer]. provides no warranty or guarantee of the accuracy or completeness of information in this document.
[2023-06-08 05:31] LABS: Absolute Lymphocyte Count 1.72 X10^3/uL (0.83-4.51); Absolute Neutrophil Count 6.2 X10^3/uL (2.0-7.7); Basophil# 0.08 X10^3/uL; Basophil% 0.8 % (0-1); Eosinophil# 0.05 X10^3/uL; Eosinophils% 0.5 % (0-5); Hematocrit 33.2 % (37-47); Hemoglobin 11.2 g/dL (12.0-15.0); Lymphocyte # 1.72 X10^3/ul (0.83-4.51); Lymphocyte % 17.4 % (19-41); Mean Corp Hgb Conc 33.7 g/dL (32-36); Mean Corpuscular Hgb 30.5 pg (27.0-32.0); Mean Corpuscular Volume 90.5 fL (81-99); Monocyte# 1.49 X10^3/uL; Monocyte% 15.1 % (0-10); NRBC Flagged by Analyzer 3.5 % (0-5); Neutrophil # 6.21 X10^3/uL (2.7-7.7); POSITIVE COUNT YES; RBC Distribution Width CV 17.9 % (11.6-14.6); RBC Distribution Width SD 57.2 fl (35.1-43.9); Red Blood Count 3.67 M/mm3 (4.2-5.4); White Blood Count 9.9 K/mm3 (4.4-11.0)
[2023-06-08] MEDS: Digoxin 250 MCG/ML Ampul 400 MCG IV (05:34)
[2023-06-08] MEDS: 0.9% Normal Saline (500mL Bag) 500 ML 999 ML IV (05:34)
[2023-06-08 05:37] LABS: Differential Indicated SCAN CRITERIA MET; Platelet Count 42 K/mm3 (150-450)
[2023-06-08 05:57] LABS: International Normalized Ratio 2.5; Prothrombin Time (Protime)PT. 26.7 SECONDS (11.7-14.9)
[2023-06-08 05:58] LABS: Partial Thromboplast Time 54.5 Seconds (24.1-36.2)
[2023-06-08 06:00] LABS: Mucous, Urine 0 SEEN /hpf (<or=2+); Red Blood Cells-Urine 0 SEEN /hpf (0-5); Squamous Epithelial Cells - UA 0 SEEN /hpf (5-10)
[2023-06-08 06:01] LABS: Color, Urine Amber (Yellow); Glucose, Dipstick Normal (Normal); Ketone-Dipstick 5 mg/dl (Negative); Leukocyte Esterase-Dipstick 25 /ul (Negative); Nitrite-Dipstick Positive (Negative); Occult Blood-Urine 250 /ul (Negative); Protein-Dipstick 100 mg/dl (Negative); Urine Clarity Sl. Cloudy (Clear); Urine Urobilinogen 8 mg/dl (Normal)
[2023-06-08 06:02] LABS: Erythrocyte Sedimentation Rate 60 mm/hr (0-30)
[2023-06-08] MEDS: Ondansetron 4 MG/2 ML Vial IV (06:09)
[2023-06-08 06:17] LABS: AST(SGOT) 507 U/L (15-37); Alanine Aminotransfer ALT/SGPT 149 U/L (13-56); Albumin, Serum 2.3 g/dL (3.2-5.0); Alkaline Phosphatase 392 U/L (45-117); Anion Gap 7 (5-15); BNP,B-Type NATRIURETIC PEPTIDE 68.3 pg/mL (0-100); BUN 30 mg/dL (7-18); BUN/Creat Ratio 24.4 RATIO (10-20); Bilirubin, Direct 6.81 mg/dL (0.00-0.30); Calcium,Total 8.2 mg/dL (8.5-10.1); Chloride 93 mmol/L (98-107); Creatinine, Serum 1.23 mg/dL (0.55-1.02); EST Glomerular Filtration Rate 44 mL/min (>60); Est Glom Filt Rate - Afr Amer 54 mL/min (>60); Estimated Creatinine Clearance 32.05 ml/min; Globulin 3.1 g/dL (2.2-4.2); Glucose 139 mg/dL (74-106); Magnesium 2.8 mg/dL (1.6-2.6); Potassium 4.5 mmol/L (3.5-5.1); Protein, Total 5.4 g/dL (6.4-8.2); Sodium Level 129 mmol/L (136-145); Thyroid Stim Hormone (TSH) 0.89 uIU/mL (0.358-3.74)
--- NOTE | 2023-06-08 06:25 | RAD_ITS ---
EXAM: XR CHEST, 1 VIEW CLINICAL INDICATION: weakness TECHNIQUE: Frontal view of the chest. COMPARISON: Single view chest 05/24/2023 FINDINGS: LUNGS AND PLEURAL SPACES: Moderate left pleural effusion and left lower lobe airspace disease. No pneumothorax. HEART: Unremarkable. Cardiac silhouette not enlarged. MEDIASTINUM: Surgical changes of the mediastinum. BONES/JOINTS: Unremarkable. No acute fracture. SOFT TISSUES: Unremarkable. RAD/Chest 1 View (Portable) IMPRESSION: Moderate left pleural effusion and left lower lobe airspace disease. Findings may indicate pneumonia. Electronically Signed: Ramirez Zavaleta MD at 6:51 EST ,
--- NOTE | 2023-06-08 06:29 | CT_ITS ---
EXAM: CT ABDOMEN AND PELVIS WITH INTRAVENOUS CONTRAST CLINICAL INDICATION: abd pain TECHNIQUE: Helically acquired images were obtained of the abdomen and pelvis with intravenous contrast. This CT exam was performed using one or more of the following dose reduction techniques: automated exposure control, adjustment of the mA and/or kV according to patient size, and/or use of iterative reconstruction technique. CONTRAST: IV 100mL Isovue-370 RADIATION DOSE: CTDIvol = 21.67 mGy, DLP = 1032.51 mGy-cm COMPARISON: CT abdomen and pelvis 05/24/2023 FINDINGS: LOWER THORAX: Left lower lobe consolidation with a small pleural effusion. No cardiomegaly. ABDOMEN: LIVER: Hepatomegaly, with multiple small indeterminate hypodense lesions throughout the hepatic parenchyma measuring up to 1.6 cm. GALLBLADDER AND BILE DUCTS: Cholecystectomy. No intra- or extrahepatic biliary ductal dilation. PANCREAS: Unremarkable. No focal cystic or solid mass. SPLEEN: Unremarkable. Normal size without focal cystic or solid mass. ADRENALS: Unremarkable. No nodules. KIDNEYS AND URETERS: Unremarkable. Normal renal size and position. No hydronephrosis. 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 No stomach or bowel distention. PELVIS: APPENDIX: The appendix is normal. BLADDER: Unremarkable. REPRODUCTIVE: Hysterectomy. ABDOMEN and PELVIS: INTRAPERITONEAL SPACE: Small amount of free fluid in the pelvis. No free air. BONES/JOINTS: Degenerative changes of the spine. No suspicious lytic or blastic abnormality. SOFT TISSUES: Unremarkable. No discrete abdominal or pelvic wall hernia. VASCULATURE: Moderate atherosclerotic changes of the abdominal aorta without dilation. LYMPH NODES: Enlarged portacaval and epigastric lymph nodes, including a large lymph node between the main portal vein and IVC measuring 2.3 cm in short axis dimension. CT/Abdomen/Pelvis W IV Cont ONLY IMPRESSION: 1. Hepatomegaly, with multiple small indeterminate hypodense lesions throughout the hepatic parenchyma measuring up to 1.6 cm. Findings could indicate primary or metastatic malignancy. ACR White Paper guidelines (Bandar et al. JACR 2017; 14(11):4832-8086.) suggest the following. For patients with a low risk of malignancy, recommend hepatic MR. For patients with high risk of malignancy (known malignancy with a propensity to metastasize to the liver, cirrhosis, and/or other hepatic risk factors), recommend hepatic MR or core biopsy. 2. Enlarged portacaval and epigastric lymph nodes, including a large lymph node between the main portal vein and IVC measuring 2.3 cm in short axis dimension. Findings may indicate malignancy. 3. Left lower lobe consolidation with a small pleural effusion. Findings likely indicate pneumonia. Electronically Signed: Ramirez Zavaleta MD at 7:18 EST ,
[2023-06-08 06:45] LABS: Bacteria 3+ /hpf (None Seen); Urine Bilirubin Dipstick 3 mg/dL (Negative); White Blood Cells 5-10 SEEN /hpf (0-5)
[2023-06-08 06:45] LABS: Blood Gas Specimen Type VEN; O2 Delivery Device Not entered; SITE Not entered; VBG BASE EXCESS 6 mmol/L (-1.0-3.5); VBG Bicarbonate 29 mmol/L (22-26); VBG PO2 47 mmHg (25-40); VBG SO2 87 % (50-70); VBG TCO2 30 mmol/L (23-33); VBG pCO2 35.8 mmHg (41-51); VBG pH 7.51 (7.32-7.42)
[2023-06-08 06:46] LABS: Amorphous Sediment 1+; Coarse Granular Cast 5-10 SEEN /lpf (0-5 /lpf)
[2023-06-08 06:57] LABS: Platelet Estimate MOD DEC (ADEQ)
[2023-06-08] MEDS: Digoxin 250 MCG/ML Ampul 100 MCG IV (07:07)
[2023-06-08 07:14] LABS: Ammonia < 10.0 umol/L (11-32)
[2023-06-08] MEDS: Ceftriaxone 1 GM/50 ML BAG IV (07:40)
--- NOTE | 2023-06-08 07:40 | HP.PCM.HOS_ITS ---
HPI - General General Date of Admission: 06/08/23 Date of Service: 06/08/23 Chief Complaint: jaundice, nausea and vomiting. HPI Narrative LOUIS BOWERS, is a 82 F with a PMH as outlined who presents via the ED on 06/08/2023 with a complaint of jaundice with associated nausea, vomiting and diarrhea for 3 days prior to admission. She was recently admitted and managed for hyperbilirubinemia due to non alcoholic steatohepatitis and resultant cirrhosis. She was also managed for UTI and thrombocytopenia at that time. Insurance denied SNF at that time and she was discharged home. She has been doing poorly since she went home and has been getting weaker. She did see her area director of home health sales on outpatient basis, and also was seen in the ED o/a of a mechanical fall and discharged home. She has had nausea and vomiting also. Vitals in the ED were BP of 116/73, MT o 103, RR of 20 and temp of 96.8F. She was saturating at 96% on room air. CBC showed Hb of 11.2, wbc of 9.9 and platelets of 42. INR is 2.5. CBC showed sodium of 129 with creatinine of 1.23. Magnesium was 2.8. Total bilirubin is up to 8.3 with a direct bilirubin of 6.81. AST elevated at 507 with ALP of 392 and ALT of 149. Ammonia level was less than 10. Urinalysis shows 3+ bacteria still. Chest x-ray showed a moderate left pleural effusion and left lower lobe airspace disease and CT of the abdomen and pelvis done showed hepatomegaly with multiple small indeterminate hypodense lesions throughout the hepatic parenchyma the findings possibly indicating primary or metastatic malignancy and enlarged portacaval and epigastric lymph nodes, with a left lower lobe consolidation with a small pleural effusion. She PFSH Medical History Acute cystitis without hematuria Adverse drug reaction Afib Atherosclerosis of coronary artery bypass graft without angina pectoris Atherosclerosis of coronary artery of [place] heart without angina pectoris Back pain Carotid artery stenosis CHF (congestive heart failure) Chronic anemia COPD with acute exacerbation Degeneration of intervertebral disc of lumbosacral region Depression Dyspnea Dyspnea Elevated LFTs Essential hypertension GERD (gastroesophageal reflux disease) GI bleed (~02/16/16) History of GI bleed (02/2016) History of non-ST elevation myocardial infarction (NSTEMI) (06/24/05) HLD (hyperlipidemia) Hyperbilirubinemia Hypothyroidism Left bundle branch block Lumbar facet arthropathy Lumbosacral spondylosis Non-rheumatic aortic stenosis NSVT (nonsustained ventricular tachycardia) Obesity Old myocardial infarction ALMA (obstructive sleep apnea) Persistent atrial fibrillation Scarlet fever Severe aortic stenosis Thrombocytopenia Thyroid nodule Transaminasemia Home Medications levothyroxine 88 mcg tablet 88 mcg PO DAILY 11/23/13 [History Last Taken 4] multivitamin-ferrous fumarate-folic acid 18 mg-400 mcg tablet 1 ea PO DAILY 02/07/17 [History Last Taken 06/07/23] magnesium oxide 400 mg (241.3 mg magnesium) tablet (MagOx) 400 mg PO DAILY 12/31/18 [History Last Taken 06/07/23] Disability Parking Placard #1 ea 05/30/20 [Rx Last Taken Unknown] aspirin 81 mg tablet,delayed release (Adult Aspirin Regimen) 81 mg PO DAILY 05/02/22 [History Last Taken 06/07/23] isosorbide mononitrate 20 mg tablet See Rx Instructions .Route .COMPLEX #180 tabs 06/10/22 [Rx Last Taken 06/07/23] tiotropium 2.5 mcg-olodaterol 2.5 mcg/actuation mist for inhalation (Stiolto Respimat) 2 inh inhalation DAILY #4 grams 10/28/22 [Rx Last Taken 06/07/23] apixaban 5 mg tablet (Eliquis) 5 mg PO BID BLOOD THINNER #60 tabs 12/10/22 [Rx Last Taken 06/07/23] nitroglycerin 0.4 mg sublingual tablet See Rx Instructions .Route .COMPLEX #25 tabs 04/02/23 [Rx Last Taken Unknown] albuterol sulfate 90 mcg/actuation aerosol inhaler (Ventolin HFA) 2 puff inhalation Q4H PRN shortness of breath or wheezing #18 grams 04/08/23 [Rx Last Taken 06/07/23] pantoprazole 40 mg tablet,delayed release 40 mg PO DAILY #90 tabs 04/08/23 [Rx Last Taken 06/08/23] albuterol sulfate 2.5 mg/3 mL (0.083 %) solution for nebulization 2.5 mg (3 mL) inhalation Q4H PRN Sob &/Or Wheezing #180 mL 05/08/23 [Rx Last Taken 06/07/23] fluticasone furoate 100 mcg-vilanterol 25 mcg/dose inhalation powder (Breo Ellipta) 1 inh inhalation DAILY #60 ea 05/31/23 [Rx Last Taken 06/07/23] spironolactone 25 mg tablet 25 mg PO DAILY 06/05/23 [History Last Taken 06/07/23] tiotropium bromide 18 mcg capsule with inhalation device (Spiriva with HandiHaler) 1 cap inhalation DAILY 06/05/23 [History Last Taken Unknown] lactulose 20 gram/30 mL oral solution 20 g (30 mL) PO TID #3,000 mL 06/06/23 [Rx Last Taken 06/08/23] rifaximin 550 mg tablet (Xifaxan) 550 mg PO BID #60 tabs 06/06/23 [Rx Last Taken 06/07/23] furosemide 40 mg tablet 40 mg PO BID DIURETIC 06/08/23 [History Last Taken 06/07/23] metoclopramide HCl 5 mg tablet 2.5 mg PO Q8H PRN nausea and vomiting 06/08/23 [History Last Taken 06/07/23] metoprolol succinate 25 mg tablet,extended release 24 hr 25 mg PO DAILY BLOOD PRESSURE 06/08/23 [History Last Taken 06/07/23] ondansetron HCl 4 mg tablet 4 mg PO Q8H PRN nausea and vomiting 06/08/23 [History Last Taken 06/07/23] potassium chloride 20 mEq tablet,extended release(part/cryst) 20 meq PO BID POTASSIUM 06/08/23 [History Last Taken Unknown] rosuvastatin 40 mg tablet 40 mg PO DAILY CHOLESTEROL 06/08/23 [History Last Taken 06/07/23] Allergy/AdvReac Type Severity Reaction Status Date / Time adhesive AdvReac Rash Verified 06/05/23 19:45 nickel AdvReac Rash Verified 06/05/23 19:45 wool AdvReac Rash Verified 06/05/23 19:45 Family History Mother CAD (coronary artery disease) Hypertension Alzheimer disease Daughter CAD (coronary artery disease) Myocardial infarction Sister Breast cancer Myocardial infarction Brother Myocardial infarction Father CVA (cerebral vascular accident) Heart disease Hypertension Aneurysm and dissection of heart Surgical History H/O aortic valve replacement (01/31/16) History of aortic valve replacement with bioprosthetic valve (~01/31/16) History of cardiac catheterization (~2015) History of cataract extraction (~2008) History of colonoscopy (~2007) History of colonoscopy (~2015) History of electrophysiologic study (02/02/16) History of hysterectomy History of inguinal herniorrhaphy History of lumpectomy of left breast History of partial thyroidectomy (~2008) History of squamous cell carcinoma excision Hx of cholecystectomy Previous back surgery S/P CABG x 2 (10/22/05) S/P CABG x 3 (~1986) Status post Mohs surgery for basal cell carcinoma (~2007) Stented coronary artery (~06/24/05) Social History Smoking Status: Former smoker quit date: 04/07/02 pack-years: 35 second hand exposure: No alcohol intake: never substance use type: does not use caffeine: Yes Type: coffee Number of servings: 2 ROS ROS Narrative deeply jaundiced Constitutional Constitutional: Reports anorexia, fatigue, malaise and weakness; Denies change in weight, chills or fever(s) ENT HEENT: Denies dysphagia Cardiovascular Cardiovascular: Denies chest pain, dyspnea on exertion, edema, lightheadedness, orthopnea, paroxysmal nocturnal dyspnea or rapid heart rate Respiratory/Chest Respiratory/Chest: Denies cough, dyspnea, shortness of breath at rest or shortness of breath with exertion Gastrointestinal Gastrointestinal: Reports abdominal pain; Denies constipation, diarrhea, dyspepsia, nausea or vomiting Neurologic Neurologic: Denies dizziness, focal weakness or headache(s) Psychiatric Psychiatric: Denies anxiety Endocrine Endocrinology: Denies change in body appearance Vital Signs Vital Signs Vital Signs: 06/08/23 04:41 06/08/23 04:48 06/08/23 06:40 Temperature 97.5 F L Temperature Source Oral Pulse Rate 120 H 101 H Respiratory Rate 25 H 19 H Respiratory Effort Short of Breath Respiratory Pattern Normal Blood Pressure 96/39 L 108/62 Blood Pressure Mean 58 77 Pulse Ox 91 92 Oxygen Delivery Method Room Air Room Air Weight Weight: 172 lb 6.424 oz Body Mass Index (BMI) 34.8 Physical Exam Const alert, oriented x3, no apparent distress and average body habitus Constitutional Narrative: deeply jaundiced General Appearance: cooperative HEENT normocephalic, head/scalp atraumatic, hearing grossly normal bilaterally, moist oral mucous membranes and oropharynx normal Mouth: oral and palatal mucosa normal Eyes PERRL, EOMs intact bilaterally and conjunctivae normal Neck no lymphadenopathy and supple Resp normal respiratory effort, no retractions, no use of accessory muscles and clear to auscultation bilaterally Cardio regular rate, regular rhythm, S1 normal heart sound, S2 normal heart sound and no murmurs GI normal to inspection, nondistended, normoactive bowel sounds GI Narrative: liver is enlarged and palpable, tender. Extremity normal to inspection, full ROM and no clubbing, cyanosis or edema Neuro oriented x3, CN's II-XII intact bilaterally and moves all extremities Sensorium / Orientation: awake and alert Motor Exam: strength 5/5 throughout Psych affect normal Results Lab / Micro Data 06/08/23 05:11 06/08/23 05:11 Labs: Laboratory Results - last 24 hr 06/08/23 05:11: WBC 9.9, RBC 3.67 L, Hgb 11.2 L, Hct 33.2 L, MCV 90.5, MCH 30.5, MCHC 33.7, RDW Std Deviation 57.2 H, RDW Coeff of Ryan 17.9 H, Plt Count 42 L*, MPV TNP, Immature Gran % (Auto) 3.200 H, Neut % (Auto) 63.0, Lymph % (Auto) 17.4 L, Mcpherson % (Auto) 15.1 H, Eos % (Auto) 0.5, Baso % (Auto) 0.8, Absolute Neuts (auto) 6.2, Absolute Lymphs (auto) 1.72, Nucleated RBC % 3.5, Diff Path Review August, Platelet Estimate MOD DEC, ESR 60 H, PT 26.7 H, INR 2.5, APTT 54.5 H, Sodium 129 L, Potassium 4.5, Chloride 93 L, Carbon Dioxide 29.0, Anion Gap 7, BUN 30 H, Creatinine 1.23 H, Estim Creat Clear Calc 32.05, Est GFR (MDRD) Af Amer 54 L, Est GFR (MDRD) Non-Af 44 L, BUN/Creatinine Ratio 24.4 H, Glucose 139 H, Calcium 8.2 L, Magnesium 2.8 H, Total Bilirubin 8.30 H, Direct Bilirubin 6.81 H, AST 507 H, ALT 149 H, Alkaline Phosphatase 392 H, C-React Prot Ext Range 23.10 H, B-Natriuretic Peptide 68.3, Total Protein 5.4 L, Albumin 2.3 L, Globulin 3.1, TSH 0.89 06/08/23 05:54: Urine Color Sheila, Urine Clarity Sl. Cloudy, Urine pH 6.0, Ur Specific [place] 1.020, Urine Protein 100 H, Urine Glucose (UA) Normal, Urine Ketones 5 H, Urine Occult Blood 250 H, Urine Nitrite Positive H, Urine Bilirubin 3 H, Urine Urobilinogen 8 H, Ur Leukocyte Esterase 25 H, Urine RBC 0 SEEN, Urine WBC 5-10 SEEN, Ur Squamous Epith Cells 0 SEEN, Amorphous Sediment 1+, Urine Bacteria 3+, Coarse Granular Casts 5-10 SEEN, Urine Mucus 0 SEEN 06/08/23 06:33: Ammonia < 10.0 L ABG Data ABG results: ABG 06/08/23 06:41 Specimen Type JJ Sample Site Not entered VBG pH 7.51 H VBG pO2 47 H VBG HCO3 29 H VBG Total CO2 30 VBG O2 Sat (Calc) 87 H VBG Base Excess 6 H POC Mix VBG pCO2 Pt Tmp 35.8 L O2 Delivery Device Not entered Imaging Radiology Impression Chest X-Ray 06/08/23 06:25 IMPRESSION: Moderate left pleural effusion and left lower lobe airspace disease. Findings may indicate pneumonia. Electronically Signed: Ramirez Zavaleta MD at 6:51 EST , Abdomen/Pelvis CT 06/08/23 06:29 IMPRESSION: 1. Hepatomegaly, with multiple small indeterminate hypodense lesions throughout the hepatic parenchyma measuring up to 1.6 cm. Findings could indicate primary or metastatic malignancy. ACR White Paper guidelines (Bandar et al. JACR 2017; 14(11):1431-0209.) suggest the following. For patients with a low risk of malignancy, recommend hepatic MR. For patients with high risk of malignancy (known malignancy with a propensity to metastasize to the liver, cirrhosis, and/or other hepatic risk factors), recommend hepatic MR or core biopsy. 2. Enlarged portacaval and epigastric lymph nodes, including a large lymph node between the main portal vein and IVC measuring 2.3 cm in short axis dimension. Findings may indicate malignancy. 3. Left lower lobe consolidation with a small pleural effusion. Findings likely indicate pneumonia. Electronically Signed: Ramirez Zavaleta MD at 7:18 EST , Assessment & Plan Assessment/Plan (1) Atrial fibrillation with rapid ventricular response: (2) Pneumonia: (3) Thrombocytopenia: (4) Jaundice, hepatocellular: PLAN: Plan #New onset afib with RVR * patient noted to be in afib on admission. Has no history of afib. * HR currently 103. HR was in the 120s. * Unable to anticoagulate as INR is 2.5. * on PO metoprolol. If HR remains poorly controlled, will give afib with RVR. * #Acute liver failure in the setting of non alcoholic cirrhosis * total bilirubin is up to 8.3, with direct bilirubin of 6.81. * ammonia level is <10 * CT abdomen and pelvis showed hepatomegaly with multiple small determinate hyp odense lesions throughout the hepatic parenchyma measuring up to 1.6 cm, findings could indicate primary or metastatic malignancy. She also had enlarged lymph nodes in the portacaval and epigastric region. She also has a left lower lobe consolidation with small pleural effusion. * Patient and daughter counseled that these liver findings which are not new may indicate that his cirrhosis has converted into hepatic malignancy. * Gastroenterology consulted. Await recommendations. * On lactulose, titrate to 2-3 loose stools daily. On rifaximin and nadolol. * #Thrombocytopenia: Platelets are down to 42. She does have chronic thrombocytopenia. Will monitor closely in the setting of liver failure. #Hypercoagulable state due to liver failure: INR was 2.5. Was 1.5 just about a week ago. This is likely due to liver failure in the setting of cirrhosis and possible liver cancer. #CAD s/p CABG and stents * Stable. On aspirin. Statin held due to hyperbilirubinemia. #Nonsustained ventricular tachycardia * This developed during her previous admission. She had had an abnormal stress test done in [place] in March 2023 and subsequently had a cardiac cath done and was told she was to have medical management. * on metoprolol * cardiology consulted per family request * #Hypothyroidism: on synthroid #Benign essential hypertension; on losartan and lasix. #CHronic afib: on eliquis which is held due to hypercoagulable state. DVT prophylaxis: SCDs. Code status: DNRCCA no intubation. * Patient and daughter counseled extensively about different types of CODE STATUS including full code, DNR CCA and DNR CCA. Patient elects to be DNRCCA no intubation. Total [id number] time 17 minutes. Charges/Coding Visit Charges Inpatient E&M: 82818 Init Hosp L3 Procedures Hospitalists Procedures: 72400 Advncd Care Plan 30 Min
--- OUTSIDE RECORDS SUMMARY | 2023-06-08 08:09 | XMS RPT_ITS | CCD ---
Author Name Unknown Address [address] [place] [address] Organization [facility] Care Team Providers Care Painter Decorator Name Role Phone Noe Rodriguez MD Unavailable [phone] Noe Rodriguez MD Unavailable [phone] Miranda DE LUNA, Larisa Unavailable Unavailable Abran HWANG, Naveen Richardson Primary Care Provider Noe Rodriguez MD Unavailable [phone] Noe Rodriguez MD Unavailable [phone] Naveen Osullivan MD A Primary Care Provider [phone] ABRAN, NAVEEN A Primary Care Unavailable ZACARLOS [...] Facility (20 sources) Lanolin Drug Allergy 09-29-2008 [facility] (20 sources) nickel sulfate Drug Allergy 12-09-2008 [facility] (20 sources) *Adhesive Tape Propensity to adverse reactions 03-22-2016 [facility] Medications Current Medications Medication Drug Class(es) Dates [...] Coronary atherosclerosis; Translations: [Atherosclerotic heart disease of washoe coronary artery without angina pectoris] Onset: 5 [...] Jose Ha MD Work Phone: [facility] 03-19-2023 12:15-0500 Heart rate 76 /min Juan Jose Ha MD Work Phone: [facility] 03-19-2023 12:15-0500 Respiratory rate 20 /min Juan Jose Ha MD Work Phone: [facility] 03-19-2023 12:15-0500 SaO2% (BldA) [Mass fraction] 96 % Juan Jose Ha MD Work Phone: [facility] 03-19-2023 12:15-0500 Systolic blood pressure 128 mm[Hg] Juan Jose Ha MD Work Phone: [facility] 03-19-2023 06:39-0500 Body height 149.9 cm Juan Jose Ha MD Work Phone: [facility] 03-19-2023 06:39-0500 Body mass index (BMI) [Ratio] 34.91 kg/m2 Juan Jose Ha MD Work Phone: [facility] 03-19-2023 06:39-0500 Body temperature 98.2 [degF] Juan Jose Ha MD Work Phone: [facility] 03-19-2023 06:39-0500 Body weight 78.4 kg Juan Jose Ha MD Work Phone: [facility] 03-05-2023 09:00-0500 Body height 149.9 cm Tayla Zahorujko PAC Work Phone: [facility] 03-05-2023 09:00-0500 Body mass index (BMI) [Ratio] 35.14 kg/m2 Tayla Zahorujko PAC Work Phone: [facility] 03-05-2023 09:00-0500 Body weight 78.93 kg Tayla Zahorujko PAC Work Phone: [facility] 03-05-2023 09:00-0500 Diastolic blood pressure 74 mm[Hg] Tayla Zahorujko PAC Work Phone: [facility] 03-05-2023 09:00-0500 Heart rate 80 /min Tayla Zahorujko PAC Work Phone: [facility] 03-05-2023 09:00-0500 Systolic blood pressure 126 mm[Hg] Tayla Zahorujko PAC Work Phone: [facility] 02-21-2023 15:21-0500 Body height 149.9 cm Von Tobias MD Work Phone: [facility] 02-21-2023 15:21-0500 Body mass index (BMI) [Ratio] 35.14 kg/m2 Von Tobias MD Work Phone: [facility] 02-21-2023 15:21-0500 Body weight 78.93 kg Von Tobias MD Work Phone: [facility] 02-21-2023 15:21-0500 Respiratory rate 14 /min Von Tobias MD Work Phone: [facility] 02-19-2023 11:55-0500 Body height 149.9 cm Tayla Zahorujko PAC Work Phone: [facility] 02-19-2023 11:55-0500 Body mass index (BMI) [Ratio] 35.2 kg/m2 Tayla Zahorujko PAC Work Phone: [facility] 02-19-2023 11:55-0500 Body weight 79.1 kg Tayla Zahorujko PAC Work Phone: [facility] 02-19-2023 11:55-0500 Diastolic blood pressure 78 mm[Hg] Tayla Zahorujko PAC Work Phone: [facility] 02-19-2023 11:55-0500 Systolic blood pressure 146 mm[Hg] Tayla Zahorujko PAC Work Phone: [facility] 02-19-2023 10:26-0500 Body height 149.9 cm Charbel Arteaga MD Work Phone: [facility] 02-19-2023 10:26-0500 Body mass index (BMI) [Ratio] 35.22 kg/m2 Charbel Arteaga MD Work Phone: 0(684)698-752215 [address] 02-19-2023 10:26-0500 Body weight 79.11 kg Charbel Arteaga MD Work Phone: 3(073)060-076315 [address] 02-19-2023 10:26-0500 Diastolic blood pressure 78 mm[Hg] Charbel Arteaga MD Work Phone: 8(898)016-557815 [address] 02-19-2023 10:26-0500 Heart rate 78 /min Charbel Arteaga MD Work Phone: 5(387)044-344115 [address] 02-19-2023 10:26-0500 Systolic blood pressure 146 mm[Hg] Charbel Arteaga MD Work Phone: 5(407)093-029093 [place] [address] 02-03-2023 09:31-0400 Body height 149.9 cm Maday Talbot MD Work Phone: [facility] 02-03-2023 09:31-0400 Body mass index (BMI) [Ratio] 35.39 kg/m2 Maday Talbot MD Work Phone: [facility] 02-03-2023 09:31-0400 Body weight 79.47 kg Maday Talbot MD Work Phone: 0(101)092-934974 [address] 02-03-2023 09:31-0400 Diastolic blood pressure 72 mm[Hg] Maday Talbot MD Work Phone: [facility] 02-03-2023 09:31-0400 Heart rate 70 /min Maday Talbot MD Work Phone: [facility] 02-03-2023 09:31-0400 Systolic blood pressure 141 mm[Hg] Maday Talbot MD Work Phone: [facility] 01-21-2023 13:10-0400 Heart rate 67 /min Maday Talbot MD Work Phone: 4(807)114-541803 [place] [address] 01-21-2023 13:10-0400 Respiratory rate 23 /min Maday Talbot MD Work Phone: 9(046)318-674703 [place] [address] 01-21-2023 13:10-0400 SaO2% (BldA) [Mass fraction] 95 % Madya Talbot MD Work Phone: 3(428)160-143003 [place] [address] 01-21-2023 13:00-0400 Diastolic blood pressure 70 mm[Hg] Maday Talbot MD Work Phone: 1(520)499-704303 [place] [address] 01-21-2023 13:00-0400 Systolic blood pressure 151 mm[Hg] Maday Talbot MD Work Phone: 7(619)081-300303 [place] [address] 01-21-2023 08:45-0400 Body temperature 97.9 [degF] Maday Talbot MD Work Phone: 8(644)558-179903 [place] [address] 10-30-2022 08:36-0400 Body height 149.9 cm Maday Talbot MD Work Phone: 5(661)597-098003 [place] [address] 10-30-2022 08:36-0400 Body mass index (BMI) [Ratio] 36.07 kg/m2 Maday Talbot MD Work Phone: 9(447)197-376203 [place] [address] 10-30-2022 08:36-0400 Body weight 81.01 kg Maday Talbot MD Work Phone: 4(535)730-912803 [place] [address] 10-30-2022 08:36-0400 Diastolic blood pressure 80 mm[Hg] Maday Talbot MD Work Phone: 6(933)706-290003 [place] [address] 10-30-2022 08:36-0400 Heart rate 73 /min Maday Talbot MD Work Phone: 8(566)908-644403 [place] [address] 10-30-2022 08:36-0400 Respiratory rate 20 /min Maday Talbot MD Work Phone: 9(140)512-631603 [place] [address] 10-30-2022 08:36-0400 SaO2% (BldA) [Mass fraction] 97 % Maday Talbot MD Work Phone: 5(449)526-133303 [place] [address] 10-30-2022 08:36-0400 Systolic blood pressure 146 mm[Hg] Maday Talbot MD Work Phone: 6(074)237-132103 [place] [address] 10-30-2022 07:54-0400 Body mass index (BMI) [Ratio] 34.18 kg/m2 Tayla Zahorujko PAC Work Phone: 3(364)693-858503 [place] [address] 10-30-2022 07:54-0400 Body weight 79.38 kg Tayla Zahorujko PAC Work Phone: 8(949)961-710803 [place] [address] 10-30-2022 07:54-0400 Diastolic blood pressure 72 mm[Hg] Tayla Zahorujko PAC Work Phone: 5(619)153-286203 [place] [address] 10-30-2022 07:54-0400 Heart rate 63 /min Tayla Zahorujko PAC Work Phone: 3(585)919-225903 [place] [address] 10-30-2022 07:54-0400 Systolic blood pressure 158 mm[Hg] Tayla Zahorujko PAC Work Phone: 8(328)995-321203 [place] [address] 09-11-2022 12:03-0400 Body height 152.4 cm Maday Talbot MD Work Phone: 5(775)948-058003 [place] [address] 09-11-2022 12:03-0400 Body mass index (BMI) [Ratio] 34.43 kg/m2 Maday Talbot MD Work Phone: 7(456)071-642403 [place] [address] 09-11-2022 12:03-0400 Body temperature 97.9 [degF] Maday Talbot MD Work Phone: 4(386)688-958703 [place] [address] 09-11-2022 12:03-0400 Body weight 79.97 kg Maday Talbot MD Work Phone: 0(132)346-636703 [place] [address] 09-11-2022 12:03-0400 Diastolic blood pressure 92 mm[Hg] Maday Talbot MD Work Phone: [facility] 09-11-2022 12:03-0400 Heart rate 103 /min Maday Talbot MD Work Phone: [facility] 09-11-2022 12:03-0400 SaO2% (BldA) [Mass fraction] 95 % Maday Talbot MD Work Phone: [facility] 09-11-2022 12:03-0400 Systolic blood pressure 167 mm[Hg] Maday Talbot MD Work Phone: [facility] 08-20-2022 14:44-0400 Body height 152.4 cm Celio Stevenson MD Work Phone: [facility] 08-20-2022 14:44-0400 Body mass index (BMI) [Ratio] 34.18 kg/m2 Celio Stevenson MD Work Phone: [facility] 08-20-2022 14:44-0400 Body weight 79.38 kg Celio Stevenson MD Work Phone: [facility] 08-20-2022 14:44-0400 Heart rate 82 /min Celio Stevenson MD Work Phone: [facility] 08-20-2022 14:44-0400 SaO2% (BldA) [Mass fraction] 96 % Celio Stevenson MD Work Phone: [facility] 07-01-2022 17:49-0400 Diastolic blood pressure 79 mm[Hg] Melody Ren MD Work Phone: [facility] 07-01-2022 17:49-0400 Heart rate 97 /min Melody Ren MD Work Phone: [facility] 07-01-2022 17:49-0400 Systolic blood pressure 178 mm[Hg] Melody Ren MD Work Phone: 9(605)244-551172 [place] [address] 07-01-2022 17:47-0400 Body height 152.4 cm Melody Ren MD Work Phone: 9(256)828-559562 [place] [address] 06-05-2022 15:01-0500 Body height 152.4 cm Melody Ren MD Work Phone: 2(029)751-864262 [place] [address] 06-05-2022 15:01-0500 Diastolic blood pressure 79 mm[Hg] Melody Ren MD Work Phone: 7(877)240-965062 [place] [address] 06-05-2022 15:01-0500 Heart rate 86 /min Melody Ren MD Work Phone: 9(397)087-928862 [place] [address] 06-05-2022 15:01-0500 Systolic blood pressure 180 mm[Hg] Melody Ren MD Work Phone: 0(769)058-893062 [place] [address] 04-25-2022 13:12-0500 Body height 152.4 cm Melody Ren MD Work Phone: 9(960)583-909262 [place] [address] 04-25-2022 13:12-0500 Body mass index (BMI) [Ratio] 34.65 kg/m2 Melody Ren MD Work Phone: 9(218)652-852662 [place] [address] 04-25-2022 13:12-0500 Body weight 80.47 kg Melody Ren MD Work Phone: 3(808)936-874662 [place] [address] 04-25-2022 13:12-0500 Diastolic blood pressure 72 mm[Hg] Melody Ren MD Work Phone: 8(540)784-852162 [place] [address] 04-25-2022 13:12-0500 Heart rate 80 /min Melody Ren MD Work Phone: 4(733)258-038662 [place] [address] 04-25-2022 13:12-0500 Systolic blood pressure 138 mm[Hg] Melody Ren MD Work Phone: 9(885)227-214362 [place] [address] 09-05-2021 14:41-0400 Body height 152.4 cm Maday Talbot MD Work Phone: [facility] 09-05-2021 14:41-0400 Body mass index (BMI) [Ratio] 32.22 kg/m2 Maday Talbot MD Work Phone: [facility] 09-05-2021 14:41-0400 Body weight 74.84 kg Maday Talbot MD Work Phone: [facility] 09-05-2021 14:41-0400 Diastolic blood pressure 71 mm[Hg] Maday Talbot MD Work Phone: [facility] 09-05-2021 14:41-0400 Heart rate 79 /min Maday Talbot MD Work Phone: [facility] 09-05-2021 14:41-0400 SaO2% (BldA) [Mass fraction] 98 % Maday Talbot MD Work Phone: [facility] 09-05-2021 14:41-0400 Systolic blood pressure 126 mm[Hg] Maday Talbot MD Work Phone: [facility] Encounters Encounter Date Encounter Type Care Provider Facility Start: 05-28-2023 ambulatory CELIO STEVENSON [facility] y:[facility] Start: 04-15-2023 Evaluation and management of inpatient NAVEEN A OSULLIVAN Facility:[facility] Start: 04-14-2023 ambulatory NAVEEN Richardson KENT Facility:[facility] Start: 04-10-2023 Telephone encounter Larisa Brooks RN [facility] Procedures Date Procedure Procedure Detail Performing Clinician [...] Start: 08-21-2031 Tetanus vaccination TETANUS [facility] Start: 10-31-2023 Potassium [Moles/volume] in Serum or Plasma POTASSIUM [facility] Start: 05-28-2023 End: 05-28-2023 Patient encounter procedure [facility] Start: 04-25-2023 Thyroid stimulating hormone measurement TSH [facility] Start: 04-14-2023 End: 04-14-2023 Patient encounter procedure 04/14/2023 1:30 PM EST Office Visit [facility] [address] [place] [address] [place] [address] [place] [address] [address] [place] [address] [facility] Start: 03-24-2023 End: 03-24-2024 Basic metabolic 2000 panel - Serum or Plasma BASIC METABOLIC PANEL Lab Routine 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), bioprosthetic Permanent atrial fibrillation Essential hypertension Expected: 03/24/2023, Expires: 03/24/2024 [facility] Immunizations Immunization Date Immunization Notes Care Provider Fa cility 02-01-2022 Influenza Vaccine, Quadrivalent, Adjuvanted Melody Ren MD Work Phone: [facility] 02-01-2022 influenza virus vacc ine, unspecified formulation Maday Talbot MD Work Phone: [facility] 08-20-2021 COVID-19 vaccine, Michael Hodges, 50 mcg/0.25 mL booster Melody Ren MD Work Phone: [facility] 08-20-2021 tetanus toxoid, redu jens diphtheria toxoid, and acellular pertussis vaccine, adsorbed Melody Ren MD Work Phone: 7(587)409-552664 [address] 03-02-2021 COVID-19 vaccine, Micahel Hodges, 50 mcg/0.25 mL booster Melody Ren MD Work Phone: 3(842)742-935164 [address] 02-19-2021 Influenza Vaccine, Quadrivalent, Adjuvanted Melody Ren MD Work Phone: [facility] 06-28-2020 hepatitis A vaccine, adult dosage Melody Ren MD Work Phone: 1(748)227-031464 [address] 05-26-2020 COVID-19 vaccine, Michael Hodges, 100 mcg/0.5 mL Melody Ren MD Work Phone: 7(758)167-138764 [address] 05-08-2020 COVID-19 vaccine, Michael Hodges, 100 mcg/0.5 mL eMlody Ren MD Work Phone: 5(807)823-834364 [address] 04-28-2020 COVID-19 vaccine, Michael Hodges, 100 mcg/0.5 mL Melody Ren MD Work Phone: 7(811)703-662464 [address] 04-07-2020 COVID-19 vaccine, Michael Hodges, 100 mcg/0.5 mL Melody Ren MD Work Phone: [facility] 02-21-2020 zoster vaccine recombinant Melody Ren MD Work Phone: [facility] 10-29-2019 hepatitis A vaccine, adult dosage Melody Ren MD Work Phone: [facility] 10-29-2019 zoster vaccine recombinant Melody Ren MD Work Phone: [facility] 01-07-2018 influenza, injectabl e, quadrivalent, contains preservative Melody Ren MD Work Phone: [facility] 01-06-2018 influenza, high dose seasonal, preservative-free Melody Ren MD Work Phone: [facility] 01-03-2017 influenza, injectabl e, quadrivalent, contains preservative Melody Ren MD Work Phone: [facility] 01-06-2016 influenza virus vacc ine, unspecified formulation Maday Talbot MD Work Phone: [facility] 01-04-2016 influenza, seasonal, injectable Melody Ren MD Work Phone: [facility] 02-05-2014 pneumococcal conjuga te vaccine, 13 valfernanda Ren MD Work Phone: [facility] 08-05-2005 pneumococcal polysaccharide vaccine, 23 valent Melody Ren MD Work Phone: [facility] Payers Date Payer Category Payer Medicare MEDICARE [employer] HMO PPO MEDICARE [employer] HMO PPO [id number] 2017-Present [address] [address] [place] [address] [id number] 2017 Medicare [id number] 1940 Unknown [id number] 1940 Unknown [id number] 1939 Unknown [id number] 1939 Unknown [id number] 1939 Unknown [id number] [id number] 1939 Unknown [id number] [id number] 1939 Unknown [id number] [id number] 1939 Unknown [id number] [id number] 1939 Unknown [id number] [id number] 1939 Unknown [id number] [id number] 1939 Unknown [id number] [id number] 1939 Unknown [id number] [id number] 1939 Unknown [id number] [id number] 1939 Unknown [id number] [id number] 1939 Unknown [id number] [id number] 1939 Unknown [id number] [id number] 1939 Unknown [id number] [id number] 1939 Unknown [id number] [id number] 1939 Unknown [id number] [id number] 1939 Unknown [id number] Social History Date Type Detail Facility Start: 01-15-2016 End: 02-19-2023 Tobacco smoking status NHIS Ex-smoker [facility] Start: 1956 End: 04-07-2003 History of tobacco use Current smoker [facility] Start: 1956 End: 04-07-2003 History of tobacco use Cigarette Smoker [facility] Start: 01-15-2016 End: 04-14-2023 Cigarettes smoked current (pack per day) - Reported 1 [facility] Start: 01-15-2016 End: 02-19-2023 Tobacco use and exposure Smokeless tobacco non-user [facility] Start: 09-05-2021 End: 03-19-2023 Alcohol intake Current drinker of alcohol (finding) [facility] Start: 12-09-2008 History SDOH Alcohol Comment occasionally [facility] Start: 02-09-2015 End: 04-25-2022 Tobacco Comment quit 11 years ago [facility] Start: 1940 Sex Assigned At Not on file [facility] Start: 03-03-2022 End: 04-25-2022 Exposure to SARS-CoV-2 (event) Unable to assess [facility] Start: 04-25-2022 Alcohol Comment Wine with dinn er once in awhile [facility] Start: 05-26-2022 End: 06-05-2022 Exposure to SARS-CoV-2 (event) Not sure [facility] Start: 09-11-2022 End: 04-14-2023 Tobacco use panel [facility] Gender identity Identifies as fe male gender (finding) [facility] Medical Equipment Procedure Code Equipment Code Equipment Origin al Text Equipment Identifier Dates Nichole Starr 58cm - [id number] Start: 02-01-2016 Valve Tavr Evolu t 26 - [id number] Start: 01-31-2016 Clinical Notes 09-05-2021 to 04-15-2023 Telephone Encounter - Vanessa Ruggiero RN - 04/15/2023 3:02 PM ESTTelephone Encounter - Vanessa Ruggiero RN - 04/15/2023 3:02 PM ESTTelephone Encounter - Vanessa Ruggiero RN - 04/15/2023 2:27 PM EST Note Date & Type Note Facility 04-15-2023 Telephone encounter Note Faxed lab order [facility] 04-15-2023 Miscellaneous Notes Faxed lab order MALINA patent's daughter, Silvestre. Will fax lab orders to [facility]. Silvestre wants to know if patient can start cardiac rehab in [place]. After labs ordered will need faxed to [phone] outpatient lab. Images from the original note [...] Received: Yesterday Charbel Arteaga MD Javier Chavez [facility] Pool Outside labs noted: K of 3.5 and BUN/Cr of 28/0.95. Please check on the patient with respect to any ongoing symptoms / concerns - especially volume related - which will help guide further care. Spoke with pt's daughter Silvestre. Reports Dot is currently not feeling well - being treated by Law Librarian for an URI with prednisone and [...] needed. She will follow up with a [employer] message when she gets home. Pt is interested in cardiac rehab. documented in this encounter [facility] 04-15-2023 Telephone encounter Note SW cherie's daughter, Silvestre. Will fax lab orders to [facility]. Silvestre wants to know if patient can start cardiac rehab in [place]. After labs ordered will need faxed to [phone], [facility] outpatient lab. [facility] 04-15-2023 Telephone encounter Note Images from the original note were not included. Charbel Arteaga MD You21 hours ago (4:23 PM) Plan: continue the furosemide / lasix at 20 mg po bid and the K supplement at 10 mEq po BID; monitor symptoms / findings; obtain a chem 6 on with results to this office. Thank you. [facility] 04-11-2023 Telephone encounter Note SW patient's daughter Silvestre, gave Dr Arteaga's recommendations. [facility] 04-11-2023 Miscellaneous Notes SW patient's daughter Silvestre, [...] Outside Labs: Received: Yesterday Charbel Arteaga MD [facility] Triage Pool Outside labs noted: K of 3.5 and BUN/Cr of 28/0.95. Please check on the patient with respect to any ongoing symptoms / concerns - especially volume related - which will help guide further care. Spoke with pt's daughter Silvestre. Reports Dot is currently not feeling well - being treated by Law Librarian for an URI with prednisone and [...] needed. She will follow up with a [employer] message when she gets home. Pt is interested in cardiac rehab. documented in this encounter [facility] 04-11-2023 Telephone encounter Note Images from the [...] to her lower extremity edema. Thank you. [facility] 04-10-2023 Telephone encounter Note Images from the original note were not included. Outside Labs: Received: Yesterday Charbel Arteaga MD [facility] Outside labs noted: K of 3.5 and BUN/Cr of 28/0.95. Please check on the patient with respect to any ongoing symptoms / concerns - especially volume related - which will help guide further care. Spoke with pt's daughter Silvestre. Reports Dot is currently not feeling well - being treated by Law Librarian for an URI with prednisone and [...] needed. She will follow up with a [employer] message when she gets home. Pt is interested in cardiac rehab. [facility] 04-09-2023 Telephone encounter Note Received lab results from [facility]. Sent to scanning for upload into chart. Copy given to Dr. Arteaga. [facility] 04-09-2023 Miscellaneous Notes Received lab results from [facility]. Sent to scanning for upload into chart. Copy given to Dr. Arteaga. Faxed to [phone] The LVEDP is a blood pressure recording [...] labs are signed, they need faxed to [facility]. Spoke with patient's daughter regarding [...] cath: Received: Today Charbel Arteaga MD [facility] Pool Please update the patient that her cardiac cath procedure was received / reviewed. 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 She did not require additional PTCA. The recommendation is for her to continue medical therapy and follow up. Thank you. Sending mychart. documented in this encounter [facility] 03-24-2023 Telephone encounter Note Faxed to [phone] [facility] 03-24-2023 Telephone encounter Note The LVEDP is [...] labs are signed, they need faxed to [facility]. [facility] 03-21-2023 Telephone encounter Note Spoke with patient's daughter regarding the above results and recommendations. Patient's daughter verbalized understanding. She said there was concerns of the LVEDP. Is this something that needs addressed? She noted that the patient has been more short of breath than normal. She is currently on 20 mg lasix daily. [facility] 03-20-2023 Telephone encounter Note Images from the original note were not included. Cardiac cath: Received: Today Charbel Arteaga MD [facility] Pool Please update the patient that her cardiac cath procedure was received / reviewed. 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 She did not require additional PTCA. The recommendation is for her to continue medical therapy and follow up. Thank you. Sending mychart. [facility] 03-19-2023 Nurse Note After Visit Summary reviewed [...] at time of discharge. Hayley Melendez RN [facility] 03-19-2023 Miscellaneous Notes After Visit Summary reviewed [...] Brief Cardiac Catheterization Procedure Note Kiara Martinez ([id number]) Pre Procedural Diagnosis Abnormal stress test [R94.39] [...] Gilmore MD - Fellow Procedural Staff Environmental Auditor: Vandana Knox RN; Patty Gallegos RN Documenter: [...] fib. 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 located at [address] [place] [address]. You are to arrive at [facility] on the 1st floor at 6:00 AM You may use criminal justice lawyer parking ($10) or park in the [facility] just past the [place] ($3). There is a walkway from the 2nd floor of the garage into the [employer] Lobby. You are to have nothing to [...] please call NOW to notify the lab ([phone]). You may receive sedation during your procedure [...] REGARDING THE PROCEDURE CALL US AT : [phone] THANK YOU, JEYSON DE LUNA Warehouse Logistics Coordinator Scheduling The above instructions were given to [...] an hour. documented in this encounter [facility] 03-19-2023 Surgery Postoperative evaluation and management note Preliminary Report - Brief Cardiac Catheterization Procedure Note Kiara Manrique Juan ([id number]) Pre Procedural Diagnosis Abnormal stress test [R94.39] [...] Gilmore MD - Fellow Procedural Staff Environmental Auditor: Vandana Knox RN; Patty Gallegos RN Documenter: Toshia Hernandez RN Full report to follow Swapnil Gilmore MD March 19, 2023 9:26 AM [facility] 03-19-2023 History and physical note PRE-CATH H&P [...] with left heart catheterization with coronary angiography. Tiger Mortensen, DO Fellow, Cardiovascular Medicine [facility] Work Phone: 03-19-2023 History and physical note [...] Medicine documented in this encounter [facility] 03-19-2023 Nurse Note Pt arrives to room [...] monitor shows a fib. 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 located at [address] [place] [address]. You are to arrive at [facility] on the 1st floor at 6:00 AM You may use criminal justice lawyer parking ($10) or park in the [facility] just past the [place] ($3). There is a walkway from the 2nd floor of the garage into the [place] Lobby. You are to have nothing to [...] please call NOW to notify the lab ([phone]). You may receive sedation during your procedure [...] REGARDING THE PROCEDURE CALL US AT : [phone] THANK YOU, JEYSON DE LUNA Warehouse Logistics Coordinator Scheduling The above instructions were given to patient verbally over the phone AND VIA MY CHART [facility] 03-06-2023 Nurse Note I called to schedule Ms. Martinez's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 Asymptomatic bilateral carotid artery stenosis Occlusion 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 without mention of cerebral infarction Pre-operative cardiovascular examination [facility] Diagnosis Obesity: body mass index of [...] Unspecified essential hypertension 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 Nonrheumatic aortic valve stenosis Aortic valve disorders [facility] Diagnosis 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 [facility] Diagnosis 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- Primary 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), bioprosthetic Permanent atrial fibrillation Atrial fibrillation Essential hypertension Unspecified essential hypertension Hyperlipidemia, unspecified hyperlipidemia type Asymptomatic bilateral carotid artery stenosis Occlusion 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 without mention of cerebral infarction Pre-operative cardiovascular examination [facility] Diagnosis 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 [facility] Diagnosis Abnormal stress test Other nonspecific abnormal cardiovascular system function study Abnormal stress test Other nonspecific abnormal cardiovascular system function study [facility] Diagnosis 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 * Cardiac Cath Care After - Wrist Site ([facility]) (Greek) [facility] Purpose Family History No [...] DUPLEX CAROTID BILATERAL Maday Talbot MD [address] [facility] 5[address] [place] [address] Referral ID Status Reason Start Date Expiration Date V isits Requested Visits Authorized [id number] New Request 09/05/2021 09/30/2022 1 1 Specialty Diagnoses / Procedures Referred By Contac t Referred To Contact Neurology Diagnoses Bilateral carotid artery stenosis Dizziness Maday Talbot MD [address] [facility] [address] [place] [address] Referral ID Status Reason Start Date Expiration Date V isits Requested Visits Authorized [id number] New Request 09/05/2021 09/30/2022 1 1 Specialty Diagnoses / Procedures Referred By Contac t Referred To Contact Diagnoses Loss of memory Procedures MRI BRAIN WITHOUT CONTRAST MO MRI BRAIN Melody Ren MD [address] [address] Referral ID Status Reason Start Date Expiration Date V isits Requested Visits Authorized [id number] New Request 04/25/2022 05/20/2023 1 1 Referral ID Status Reason Start Date Expiration Date Visits Re quested Visits Authorized [id number] Closed 04/25/2022 05/20/2023 1 1 Specialty Diagnoses / Procedures Referred By Contac t Referred To Contact Diagnoses Peripheral vertigo involving left ear Procedures MRI INTERNAL AUDITORY CANAL WITH AND WITHOUT CONTRAST MO MRI BRAIN COMBO Melody Ren MD [address] [address] Referral ID Status Reason Start Date Expiration Date Visits Re quested Visits Authorized [id number] Closed 06/07/2022 07/02/2023 1 1 Specialty Diagnoses / Procedures Referred By Contac t Referred To Contact Diagnoses Vestibular schwannoma Procedures MRI INTERNAL AUDITORY CANAL WITH AND WITHOUT CONTRAST MO MRI BRAIN MICAELAO Celio Stevenson MD [address] [address] Referral ID Status Reason Start Date Expiration Date V isits Requested Visits Authorized [id number] New Request 08/20/2022 09/14/2023 1 1 Specialty Diagnoses / Procedures Referred By Contac t Referred To Contact Diagnoses Bilateral carotid artery stenosis Procedures VASC DUPLEX CAROTID BILATERAL Tayla Carter R, PAC [address] [place] [address] Referral ID Status Reason Start Date Expiration Date V isits Requested Visits Authorized [id number] New Request 03/13/2022 04/07/2023 1 1 Specialty Diagnoses / Procedures Referred By Contac t Referred To Contact Diagnoses Bilateral carotid artery stenosis Procedures CT ANGIO BRAIN/NECK MO CT ANGIO,HEAD COMBO,INCL IMAGE PROCESS MO CT ANGIO,NECK COMBO,INCL IMAGE PROCESS Tayla Carter R, PAC [address] [place] [address] Referral ID Status Reason Start Date Expiration Date V isits Requested Visits Authorized [id number] New Request 09/11/2022 10/06/2023 1 1 Specialty Diagnoses / Procedures Referred By Contac t Referred To Contact Diagnoses Asymptomatic bilateral carotid artery stenosis Procedures ECG Tayla Carter R, PAC [address] [place] [address] Referral ID Status Reason Start Date Expiration Date V isits Requested Visits Authorized [id number] New Request 10/30/2022 11/24/2023 1 1 Referral ID Status Reason Start Date Expiration Date Visits Re quested Visits Authorized [id number] Closed 09/11/2022 10/06/2023 1 1 Specialty Diagnoses / Procedures Referred By Contac t Referred To Contact Echocardiography Diagnoses 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 Procedures ECHOCARDIOGRAM MO ECHO HEART XTHORACIC,COMPLETE W DOPPLER Maday Talbot MD [address] [facility] [address] [place] [address] Referral ID Status Reason Start Date Expiration Date Visits Re quested Visits Authorized [id number] Closed 01/31/2023 02/25/2024 1 1 Specialty Diagnoses / Procedures Referred By Contac t Referred To Contact Diagnoses 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 Procedures NUC MYOCARD PERF STRESS MIBI PHARM MO CHG MYOCARDIAL SPECT MULTIPLE STUDIES CHG MYOCARDIAL SPECT MULTIPLE STUDIES-T MO CARDIAC STRESS TST,INTERP/REPT ONLY MO CV STRS TST XERS&/OR RX CONT ECG W/O I&R Maday Talbot MD [facility] [address] [address] Referral ID Status Reason Start Date Expiration Date Visits Re quested Visits Authorized [id number] Closed 01/31/2023 02/25/2024 1 1 Specialty Diagnoses / Procedures Referred By Contac t Referred To Contact Procedures ECG Escobar Reaves MD [address] [place] [address] Referral ID Status Reason Start Date Expiration Date V isits Requested Visits Authorized [id number] New Request 03/19/2023 04/12/2024 1 1 Additional Source Comments INFORMATION SOURCE (unrecogn ized section and content) DATE CREATED AUTHOR AUTHOR'S ORGANIZ ATION 06/07/2023 [facility] Reason for Visit (unrecogniz ed section and content) Specialty Diagnoses / Procedures Referred By Contac t Referred To Contact Diagnoses Bilateral carotid artery stenosis Procedures VASC DUPLEX CAROTID BILATERAL VASC DUPLEX CAROTID BILATERAL Maday Talbot MD [address] [facility] [address] [address] Referral ID Status Reason Start Date Expiration Date V isits Requested Visits Authorized [id number] New Request 09/05/2021 09/30/2022 1 1 Reason Comments New Patient Specialty Diagnoses / Procedures Referred By Contac t Referred To Contact Neurology Diagnoses Bilateral carotid artery stenosis Dizziness Maday Talbot MD [address] [facility] [address] [address] Referral ID Status Reason Start Date Expiration Date V isits Requested Visits Authorized [id number] New Request 09/05/2021 09/30/2022 1 1 Specialty Diagnoses / Procedures Referred By Courtney michele Referred To Contact Diagnoses Loss of memory Procedures MRI BRAIN WITHOUT CONTRAST MO MRI BRAIN Melody Ren MD [address] [address] Referral ID Status Reason Start Date Expiration Date Visits Re quested Visits Authorized [id number] Closed 04/25/2022 05/20/2023 1 1 Specialty Diagnoses / Procedures Referred By Courtney t Referred To Contact Diagnoses Peripheral vertigo involving left ear Procedures MRI INTERNAL AUDITORY CANAL WITH AND WITHOUT CONTRAST MO MRI BRAIN COMBO Melody Ren MD [address] [address] Referral ID Status Reason Start Date Expiration Date Visits Re quested Visits Authorized [id number] Closed 06/07/2022 07/02/2023 1 1 Reason Comments Vestibular Schwanoma vestibular schwanno ma pt stated that she is a nodule behind her left ear and she gets dizzy some times Specialty Diagnoses / Procedures Referred By Courtney michele Referred To Contact Diagnoses Bilateral carotid artery stenosis Procedures VASC DUPLEX CAROTID BILATERAL Tayla Carter, PAC [address] [place] [address] Referral ID Status Reason Start Date Expiration Date V isits Requested Visits Authorized [id number] New Request 03/13/2022 04/07/2023 1 1 Reason Comments Follow-up Reason Comments Follow-up Follow up after CTA Specialty Diagnoses / Procedures Referred By Courtney michele Referred To Contact Diagnoses Bilateral carotid artery stenosis Procedures CT ANGIO BRAIN/NECK MO CT ANGIO,HEAD COMBO,INCL IMAGE PROCESS MO CT ANGIO,NECK COMBO,INCL IMAGE PROCESS Tayla Carter, PAC [address] [place] [address] Referral ID Status Reason Start Date Expiration Date Visits Re quested Visits Authorized [id number] Closed 09/11/2022 10/06/2023 1 1 Specialty Diagnoses / Procedures Referred By Courtney michele Referred To Contact Diagnoses Bilateral carotid artery stenosis Bilateral carotid artery stenosis [I65.23] Procedures MO PLACE CATH SUBSELECT ART,NECK PLACEMENT CATHETER SELECTIVE ARTERY INITIAL 2ND ORDER THORACIC/BRACHIOCEPHALIC Maday Talbot MD [address] [facility] [address] [place] [address] [facility] [address] [place] [address] Referral ID Status Reason Start Date Expiration Date Visits Re quested Visits Authorized [id number] 1 1 Reason Comments Surgical Follow-up Follow-up [...] due to calcified coronary lesion Procedures ECHOCARDIOGRAM MO ECHO HEART XTHORACIC,COMPLETE W DOPPLER Maday Talbot MD [address] [facility] [address] [place] [address] Referral ID Status Reason Start Date Expiration Date Visits Re quested Visits Authorized [id number] Closed 01/31/2023 02/25/2024 1 1 Reason Comments Consult Patient here for voc al cord check. 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 Procedures NUC MYOCARD PERF STRESS MIBI PHARM MO CHG MYOCARDIAL SPECT MULTIPLE STUDIES CHG MYOCARDIAL SPECT MULTIPLE STUDIES-T MO CARDIAC STRESS TST,INTERP/REPT ONLY MO CV STRS TST XERS&/OR RX CONT ECG W/O I&R Maday Talbot MD [address] [facility] [address] [place] [address] Referral ID Status Reason Start Date Expiration Date Visits Re quested Visits Authorized [id number] Closed 01/31/2023 02/25/2024 1 1 Specialty Diagnoses / Procedures Referred By Courtney t Referred To Contact Diagnoses Abnormal stress test Abnormal stress test [R94.39] Procedures MO CATH PLMT L HRT & ARTS W/NJX & ANGIO IMG S&I CORONARY ANGIOGRAM CORONARY BYPASS GRAFT ANGIOGRAM LEFT HEART CATHETERIZATION [facility] [address] [place] [address] [facility] [address] [place] [address] Referral ID Status Reason Start Date Expiration Date Visits Re quested Visits Authorized [id number] 1 1 Reason Onset Date Comments Results 03/20/2023 Reason Onset Date Comments Results 04/10/2023 Care Teams (unrecognized sec tion and content) Painter Decorator Relationship Specialty Start Date End Date Noe Rodriguez MD [address] [address] PCP - Referring 1 Cardiovascular Disease 02/07/16 Naveen Osullivan MD [address] [place], [place] [address] PCP - General Family Medicine 03/22/16 Noe Rodriguez MD 176 [facility] [address] [place] [address] Referring Provider Cardiovascular Disease 12/18/15 Larisa Jean, RN Registered Nurse 03/05/16 Painter Decorator Relationship Specialty Start Date End Date Noe Rodriguez MD [address] [address] PCP - Referring 1 Cardiovascular Disease 02/07/16 Naveen Osullivan MD [address] [place], [place] [address] PCP - General Family Medicine 03/22/16 Noe Rodriguez MD 176 [facility] [address] [place] [address] Referring Provider Cardiovascular Disease 12/18/15 Larisa Jean, RN Registered Nurse 03/05/16 Painter Decorator Relationship Specialty Start Date End Date Noe Rodriguez MD [address] [place] [address] PCP - Referring 1 Cardiovascular Disease 02/07/16 Naveen Osullivan MD [address] [facility] [place] [address] PCP - General Family Medicine 03/22/16 Noe Rodriguez MD [address] [facility] [address] [place] [address] Referring Provider Cardiovascular Disease 12/18/15 Larisa Jean, RN Registered Nurse 03/05/16 Painter Decorator Relationship Specialty Start Date End Date Noe Rodriguez MD [address] [place] [address] PCP - Referring 1 Cardiovascular Disease 02/07/16 Naveen Osullivan MD [address] [place] [address] PCP - General Family Medicine 03/22/16 Noe Rodriguez MD [address] [facility] [address] [place] [address] Referring Provider Cardiovascular Disease 12/18/15 Larisa Jean, RN Registered Nurse 03/05/16 Painter Decorator Relationship Specialty Start Date End Date Noe Rodriguez MD [address] [place] [address] PCP - Referring 1 Cardiovascular Disease 02/07/16 Naveen Osullivan MD [address] [place] [address] PCP - General Family Medicine 03/22/16 Noe Rodriguez MD [address] [facility] [address] [place] [address] Referring Provider Cardiovascular Disease 12/18/15 Larisa Jean, RN Registered Nurse 03/05/16 Painter Decorator Relationship Specialty Start Date End Date Noe Rodriguez MD [address] [place] [address] PCP - Referring 1 Cardiovascular Disease 02/07/16 Naveen Osullivan MD [address] [facility] [place] [address] PCP - General Family Medicine 03/22/16 Noe Rodriguez MD [address] [facility] [address] [place] [address] Referring Provider Cardiovascular Disease 12/18/15 Larisa Jean RN Registered Nurse 03/05/16 Painter Decorator Relationship Specialty Start Date End Date Noe Rodriguez MD [address] [place] [address] PCP - Referring 1 Cardiovascular Disease 02/07/16 Naveen Osullivan MD [address] [facility] [place] [address] PCP - General Family Medicine 03/22/16 Noe Rodriguez MD [address] [facility] [address] [place] [address] Referring Provider Cardiovascular Disease 12/18/15 Larisa Jean, RN Registered Nurse 03/05/16 Painter Decorator Relationship Specialty Start Date End Date Noe Rodriguez MD [address] [place] [address] PCP - Referring 1 Cardiovascular Disease 02/07/16 Naveen Osullivan MD [address] [place] [address] PCP - General Family Medicine 03/22/16 Noe Rodriguez MD [address] [facility] [address] [place] [address] Referring Provider Cardiovascular Disease 12/18/15 Larisa Jean, RN Registered Nurse 03/05/16 Painter Decorator Relationship Specialty Start Date End Date Noe Rodriguez MD [address] [place] [address] PCP - Referring 1 Cardiovascular Disease 02/07/16 Naveen Osullivan MD [address] [place] [address] PCP - General Family Medicine 03/22/16 Noe Rodriguez MD [address] [facility] [address] [place] [address] Referring Provider Cardiovascular Disease 12/18/15 Larisa Jean, RN Registered Nurse 03/05/16 Painter Decorator Relationship Specialty Start Date End Date Noe Rodriguez MD [address] [place] [address] PCP - Referring 1 Cardiovascular Disease 02/07/16 Naveen Osullivan MD [address] [place] [address] PCP - General Family Medicine 03/22/16 Noe Rodriguez MD [address] [facility] [address] [place] [address] Referring Provider Cardiovascular Disease 12/18/15 Larisa Jean, RN Registered Nurse 03/05/16 Painter Decorator Relationship Specialty Start Date End Date Noe Rodriguez MD [address] [place] [address] PCP - Referring 1 Cardiovascular Disease 02/07/16 Naveen Osullivan MD [address] [facility] [place] [address] PCP - General Family Medicine 03/22/16 Noe Rodriguez MD [address] [facility] [address] [place] [address] Referring Provider Cardiovascular Disease 12/18/15 Larisa Jean RN Registered Nurse 03/05/16 Painter Decorator Relationship Specialty Start Date End Date Noe Rodriguez MD [address] [place] [address] PCP - Referring 1 Cardiovascular Disease 02/07/16 Naveen Osullivan MD [address] [facility] [place] [address] PCP - General Family Medicine 03/22/16 Noe Rodriguez MD [address] [facility] [address] [place] [address] Referring Provider Cardiovascular Disease 12/18/15 Larisa Jean, RN Registered Nurse 03/05/16 Painter Decorator Relationship Specialty Start Date End Date Noe Rodriguez MD [address] [place] [address] PCP - Referring 1 Cardiovascular Disease 02/07/16 Naveen Osullivan MD [address] [place] [address] PCP - General Family Medicine 03/22/16 Noe Rodriguez MD [address] [facility] [address] [place] [address] Referring Provider Cardiovascular Disease 12/18/15 Larisa Jean, RN Registered Nurse 03/05/16 Painter Decorator Relationship Specialty Start Date End Date Noe Rodriguez MD [address] [place] [address] PCP - Referring 1 Cardiovascular Disease 02/07/16 Naveen Osullivan MD [address] [place] [address] PCP - General Family Medicine 03/22/16 Noe Rodriguez MD [address] [place] [address] Referring Provider Cardiovascular Disease 12/18/15 Larisa Jean, RN Registered Nurse 03/05/16 Painter Decorator Relationship Specialty Start Date End Date Noe Rodriguez MD [address] [place] [address] PCP - Referring 1 Cardiovascular Disease 02/07/16 Naveen Osullivan MD [address] [place] [address] PCP - General Family Medicine 03/22/16 Noe Rodriguez MD [address] [place] [address] Referring Provider Cardiovascular Disease 12/18/15 Larisa Jean, RN Registered Nurse 03/05/16 Painter Decorator Relationship Specialty Start Date End Date Noe Rodriguez MD [address] [place] [address] PCP - Referring 1 Cardiovascular Disease 02/07/16 Naveen Osullivan MD [address] [facility] [place] [address] PCP - General Family Medicine 03/22/16 Noe Rodriguez MD [address] [place] [address] Referring Provider Cardiovascular Disease 12/18/15 Larisa Jean, RN Registered Nurse 03/05/16 03/05/23 Painter Decorator Relationship Specialty Start Date End Date Noe Rodriguez MD [address] [place] [address] PCP - Referring 1 Cardiovascular Disease 02/07/16 Naveen Osullivan MD [address] [place] [address] PCP - General Family Medicine 03/22/16 Noe Rodriguez MD [address] [place] [address] Referring Provider Cardiovascular Disease 12/18/15 Painter Decorator Relationship Specialty Start Date End Date Noe Rodriguez MD [address] [place] [address] PCP - Referring 1 Cardiovascular Disease 02/07/16 Naveen Osullivan MD [address] [place] [address] PCP - General Family Medicine 03/22/16 Noe Rodriguez MD [address] [place] [address] Referring Provider Cardiovascular Disease 12/18/15 Painter Decorator Relationship Specialty Start Date End Date Noe Rodriguez MD [address] [place] [address] PCP - Referring 1 Cardiovascular Disease 02/07/16 Naveen Osullivan MD [address] [place] [address] PCP - General Family Medicine 03/22/16 Noe Rodriguez MD [address] [place] [address] Referring Provider Cardiovascular Disease 12/18/15 Painter Decorator Relationship Specialty Start Date End Date Noe Rodriguez MD [address] [place] [address] PCP - Referring 1 Cardiovascular Disease 02/07/16 Naveen Osullivan MD [address] [place] [address] PCP - General Family Medicine 03/22/16 Noe Rodriguez MD [address] [place] [address] Referring Provider Cardiovascular Disease 12/18/15 Scheduled Active [...] BE BASED ON THE PRIMARY CLINICAL RECORDS. [employer] provides no warranty or guarantee of the accuracy or completeness of information in this document.
[2023-06-08] MEDS: Piperacil/Tazobactam 3.375 GM in 0.9% Normal Saline (50mL MB+) 50 ML IV (08:24)
--- NOTE | 2023-06-08 08:37 | EDS_ITS ---
HPI History of Present Illness Chief Complaint: General Illness Informant: patient and family Narrative Narrative: Patient is an 82-year-old female who is a DNR Comfort Care arrest with no intubation brought in from home secondary to increasing generalized weakness. 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 Daughter states that she was discharged home and has been home roughly 1 week. Since returning home patient has had slowly progressing weakness and daughter has noticed that her skin is now becoming yellow. Daughter states that the patient is unable to care for herself secondary to her weakness and rapidly progressing symptoms and therefore brings her in for repeat evaluation [facility] Medical History Acute cystitis without hematuria Adverse drug reaction Afib Atherosclerosis of coronary artery bypass graft without angina pectoris Atherosclerosis of coronary artery of wrangell heart without angina pectoris Back pain Carotid artery stenosis CHF (congestive heart failure) Chronic anemia COPD with acute exacerbation Degeneration of intervertebral disc of lumbosacral region Depression Dyspnea Dyspnea Elevated LFTs Essential hypertension GERD (gastroesophageal reflux disease) GI bleed (~02/16/16) History of GI bleed (02/2016) History of non-ST elevation myocardial infarction (NSTEMI) (06/24/05) HLD (hyperlipidemia) Hyperbilirubinemia Hypothyroidism Left bundle branch block Lumbar facet arthropathy Lumbosacral spondylosis Non-rheumatic aortic stenosis NSVT (nonsustained ventricular tachycardia) Obesity Old myocardial infarction ALMA (obstructive sleep apnea) Persistent atrial fibrillation Scarlet fever Severe aortic stenosis Thrombocytopenia Thyroid nodule Transaminasemia Home Medications levothyroxine 88 mcg tablet 88 mcg PO DAILY 11/23/13 [History Last Taken 06/07/23] multivitamin-ferrous fumarate-folic acid 18 mg-400 mcg tablet 1 ea PO DAILY 02/07/17 [History Last Taken 06/07/23] magnesium oxide 400 mg (241.3 mg magnesium) tablet (MagOx) 400 mg PO DAILY 12/31/18 [History Last Taken 06/07/23] Disability Parking Placard #1 ea 05/30/20 [Rx Last Taken Unknown] aspirin 81 mg tablet,delayed release (Adult Aspirin Regimen) 81 mg PO DAILY 05/02/22 [History Last Taken 06/07/23] isosorbide mononitrate 20 mg tablet See Rx Instructions .Route .COMPLEX #180 tabs 06/10/22 [Rx Last Taken 06/07/23] tiotropium 2.5 mcg-olodaterol 2.5 mcg/actuation mist for inhalation (Stiolto Respimat) 2 inh inhalation DAILY #4 grams 10/28/22 [Rx Last Taken 06/07/23] apixaban 5 mg tablet (Eliquis) 5 mg PO BID BLOOD THINNER #60 tabs 12/10/22 [Rx Last Taken 06/07/23] nitroglycerin 0.4 mg sublingual tablet See Rx Instructions .Route .COMPLEX #25 tabs 04/02/23 [Rx Last Taken Unknown] albuterol sulfate 90 mcg/actuation aerosol inhaler (Ventolin HFA) 2 puff inhalation Q4H PRN shortness of breath or wheezing #18 grams 04/08/23 [Rx Last Taken 06/07/23] pantoprazole 40 mg tablet,delayed release 40 mg PO DAILY #90 tabs 04/08/23 [Rx Last Taken 06/08/23] albuterol sulfate 2.5 mg/3 mL (0.083 %) solution for nebulization 2.5 mg (3 mL) inhalation Q4H PRN Sob &/Or Wheezing #180 mL 05/08/23 [Rx Last Taken 06/07/23] fluticasone furoate 100 mcg-vilanterol 25 mcg/dose inhalation powder (Breo Ellipta) 1 inh inhalation DAILY #60 ea 05/31/23 [Rx Last Taken 06/07/23] spironolactone 25 mg tablet 25 mg PO DAILY 06/05/23 [History Last Taken 06/07/23] tiotropium bromide 18 mcg capsule with inhalation device (Spiriva with Andrews diHaler) 1 cap inhalation DAILY 06/05/23 [History Last Taken Unknown] lactulose 20 gram/30 mL oral solution 20 g (30 mL) PO TID #3,000 mL 06/06/23 [Rx Last Taken 06/08/23] rifaximin 550 mg tablet (Xifaxan) 550 mg PO BID #60 tabs 06/06/23 [Rx Last Taken 06/07/23] furosemide 40 mg tablet 40 mg PO BID DIURETIC 06/08/23 [History Last Taken 06/07/23] metoclopramide HCl 5 mg tablet 2.5 mg PO Q8H PRN nausea and vomiting 06/08/23 [History Last Taken 06/07/23] metoprolol succinate 25 mg tablet,extended release 24 hr 25 mg PO DAILY BLOOD PRESSURE 06/08/23 [History Last Taken 06/07/23] ondansetron HCl 4 mg tablet 4 mg PO Q8H PRN nausea and vomiting 06/08/23 [History Last Taken 06/07/23] potassium chloride 20 mEq tablet,extended release(part/cryst) 20 meq PO BID POTASSIUM 06/08/23 [History Last Taken Unknown] rosuvastatin 40 mg tablet 40 mg PO DAILY CHOLESTEROL 06/08/23 [History Last Taken 06/07/23] Allergy/AdvReac Type Severity Reaction Status Date / Time adhesive AdvReac Rash Verified 06/05/23 19:45 nickel AdvReac Rash Verified 06/05/23 19:45 wool AdvReac Rash Verified 06/05/23 19:45 Family History Mother CAD (coronary artery disease) Hypertension Alzheimer disease Daughter CAD (coronary artery disease) Myocardial infarction Sister Breast cancer Myocardial infarction Brother Myocardial infarction Father CVA (cerebral vascular accident) Heart disease Hypertension Aneurysm and dissection of heart Surgical History H/O aortic valve replacement (01/31/16) History of aortic valve replacement with bioprosthetic valve (~01/31/16) History of cardiac catheterization (~2015) History of cataract extraction (~2008) History of colonoscopy (~2007) History of colonoscopy (~2015) History of electrophysiologic study (02/02/16) History of hysterectomy History of inguinal herniorrhaphy History of lumpectomy of left breast History of partial thyroidectomy (~2008) History of squamous cell carcinoma excision Hx of cholecystectomy Previous back surgery S/P CABG x 2 (10/22/05) S/P CABG x 3 (~1986) Status post Mohs surgery for basal cell carcinoma (~2007) Stented coronary artery (~06/24/05) Social History Smoking Status: Former smoker quit date: 04/07/02 pack-years: 35 second hand exposure: No alcohol intake: never substance use type: does not use caffeine: Yes Type: coffee Number of servings: 2 ROS ROS ED Constitutional Constitutional ED: Denies chills or fever(s) Eyes Eyes: Denies change in vision ENT ENT ED: Denies rhinorrhea or sore throat Cardiovascular Cardiovascular: Reports palpitations and racing heartbeat; Denies chest pain Respiratory/Chest Respiratory/Chest: Reports dyspnea; Denies cough Gastrointestinal Gastrointestinal: Reports abdominal pain; Denies diarrhea, nausea or vomiting Genitourinary Genitourinary ED: Denies dysuria Musculoskeletal Musculoskeletal: Denies myalgias Integumentary Denies rash Neurologic Neurologic: Reports weakness; Denies headache(s) Hematologic/Lymphatic Hematologic/Lymphatic: Reports easy bleeding and easy bruising EXAM Physical Exam Const Vital Signs: 06/08/23 04:41 06/08/23 04:48 06/08/23 06:40 Temperature 97.5 F L Temperature Source Oral Pulse Rate 120 H 101 H Respiratory Rate 25 H 19 H Respiratory Effort Short of Breath Respiratory Pattern Normal Blood Pressure 96/39 L 108/62 Blood Pressure Mean 58 77 Pulse Ox 91 92 Oxygen Delivery Method Room Air Room Air 06/08/23 07:43 Temperature 96.8 F L Temperature Source Pulse Rate 103 H Respiratory Rate 20 H Respiratory Effort Respiratory Pattern Blood Pressure 116/73 Blood Pressure Mean 87 Pulse Ox 96 Oxygen Delivery Method Positive well nourished, well developed and obese General Appearance ED: well developed Nutritional Appearance: obese HEENT Reports dry mucous membranes HEENT Narrative: Mucous membranes are dry and tacky without secondary changes to suggest infection No tongue or lip swelling no oral lesions no airway edema or compromise Mouth ED: Yes dry mucous membranes Mouth: dry mucous membranes Eyes PERRL and EOMs intact bilaterally General Eye ED: Yes scleral icterus Neck supple Neck Narrative: No nuchal rigidity or meningeal signs noted Resp Resp Narrative: Breath sounds are diminished throughout with rhonchi/crackles noted in the right lower lobe however no nasal flaring or retractions or accessory muscle use but there is tachypnea present Cardio Rate: other Other Details: Irregularly irregular rhythm with tachycardic rate consistent with history of atrial fibrillation with RVR GI GI Narrative: Patient has hepatomegaly noted in the right upper quadrant with pain on palp ation at this site the remainder of the exam is soft and nontender and bowel sounds are hypoactive No pulsatile mass or obvious fluid wave noted Extremity Extremity Narrative: +2-3 pitting edema to the bilateral lower extremities that is equal and symmetric with negative Homans' sign Neuro oriented x3 and CN's II-XII intact bilaterally Neuro Narrative: Patient is slightly up obtunded as she falls asleep quickly but will awake to voice with GCS of 14 However cranial nerves II through XII are grossly intact without focal neurologic deficit Sensorium / Orientation: orientation impaired Psych Psych Narrative: Patient has a depressed/flat affect Skin Skin Narrative: Patient has diffuse jaundice There is ecchymosis along the left flank/abdomen which correlates with the daughter's report of previous fall from roughly 1 week ago MDM MDM MDM Narrative Medical decision making narrative: Patient arrived to the ER tachycardic consistent with her history of atrial fibrillation and borderline hypotensive. With her recent diagnosis of Mercado and now new onset jaundice there is concern that she may have a stone in the common bile duct or that she is now developed hepatorenal syndrome and with her worsening weakness there is concern for repeat infection such as UTI or pneumonia. As she is on Eliquis there is also concern that she may have acute blood loss anemia and need a blood transfusion. Patient blood work was obtained and shows normal white blood cell count and stable H&H. However her liver enzymes are worsening from previous visit her bleeding times are elevated as well consistent with cirrhosis and her thrombocytopenia is worsening as well which could all cause increased internal bleeding. A cath urine sample was obtained as there was concern for UTI and does show changes with this. Chest x- ray also questions pleural effusion and/or pneumonia. Patient underwent a CT scan with IV contrast based on her worsening symptoms which revealed changes to the liver concerning for primary versus metastatic cancer. Based on her mild hypotension she was given digoxin for her A-fib with RVR and this did help heart rate reduced to roughly 100. She was given a 500 mill fluid bolus as physical exam showed changes concerning for dehydration but as she also has history of fluid overload more fluids were held. Patient had Rocephin started secondary to UTI and once pneumonia was reiterated/confirmed with the CT scan Zosyn was added. At this time the patient is having rapidly progressing liver enzymes and progressive weakness and therefore she is not safe for home. She will be readmitted for continued IV antibiotics secondary to the UTI and pneumonia as well as further follow-up regarding this potential primary versus metastatic liver cancer and her worsening enzymes. Secondary to this medicine was contacted and they do agree to accept the patient at this time. As the patient's blood pressure is remaining stable and digoxin has helped control the heart rate patient will be placed in the PCU rather than the ICU at this time History & Record Review Discussion w/independent historian: Patient and Family Lab Data Attestation: I reviewed the patient's lab results. Labs: Laboratory Results - last 24 hr 06/08/23 06/08/23 06/08/23 05:11 05:54 06:33 WBC 9.9 RBC 3.67 L Hgb 11.2 L Hct 33.2 L MCV 90.5 MCH 30.5 MCHC 33.7 RDW Std Deviation 57.2 H RDW Coeff of Ryan 17.9 H Plt Count 42 L* MPV TNP Immature Gran % (Auto) 3.200 H Neut % (Auto) 63.0 Lymph % (Auto) 17.4 L [place] % (Auto) 15.1 H Eos % (Auto) 0.5 Baso % (Auto) 0.8 Absolute Neuts (auto) 6.2 Absolute Lymphs (auto) 1.72 Nucleated RBC % 3.5 Diff Path Review May foll Platelet Estimate MOD DEC ESR 60 H PT 26.7 H INR 2.5 APTT 54.5 H Sodium 129 L Potassium 4.5 Chloride 93 L Carbon Dioxide 29.0 Anion Gap 7 BUN 30 H Creatinine 1.23 H Estim Creat Clear Calc 32.05 Est GFR (MDRD) Af Amer 54 L Est GFR (MDRD) Non-Af 44 L BUN/Creatinine Ratio 24.4 H Glucose 139 H Calcium 8.2 L Magnesium 2.8 H Total Bilirubin 8.30 H Direct Bilirubin 6.81 H AST 507 H ALT 149 H Alkaline Phosphatase 392 H Ammonia < 10.0 L C-React Prot Ext Range 23.10 H B-Natriuretic Peptide 68.3 Total Protein 5.4 L Albumin 2.3 L Globulin 3.1 TSH 0.89 Urine Color Sheila Urine Clarity Sl. Cloudy Urine pH 6.0 Ur Specific Stowell 1.020 Urine Protein 100 H Urine Glucose (UA) Normal Urine Ketones 5 H Urine Occult Blood 250 H Urine Nitrite Positive H Urine Bilirubin 3 H Urine Urobilinogen 8 H Ur Leukocyte Esterase 25 H Urine RBC 0 SEEN Urine WBC 5-10 SEEN Ur Squamous Epith Cells 0 SEEN Amorphous Sediment 1+ Urine Bacteria 3+ Coarse Granular Casts 5-10 SEEN Urine Mucus 0 SEEN ABG Data ABG results: ABG 06/08/23 06:41 Specimen Type JJ Sample Site Not entered VBG pH 7.51 H VBG pO2 47 H VBG HCO3 29 H VBG Total CO2 30 VBG O2 Sat (Calc) 87 H VBG Base Excess 6 H POC Mix VBG pCO2 Pt Tmp 35.8 L O2 Delivery Device Not entered Radiography Diagnostic Testing: Clinical Impression(s) from Imaging Studies Chest X-Ray 06/08/23 06:25 IMPRESSION: Moderate left pleural effusion and left lower lobe airspace disease. Findings may indicate pneumonia. Electronically Signed: Ramirez Zavaleta MD at 6:51 EST , Abdomen/Pelvis CT 06/08/23 06:29 IMPRESSION: 1. Hepatomegaly, with multiple small indeterminate hypodense lesions throughout the hepatic parenchyma measuring up to 1.6 cm. Findings could indicate primary or metastatic malignancy. ACR White Paper guidelines (Bandar et al. JACR 2017; 14(11):6411-6653.) suggest the following. For patients with a low risk of malignancy, recommend hepatic MR. For patients with high risk of malignancy (known malignancy with a propensity to metastasize to the liver, cirrhosis, and/or other hepatic risk factors), recommend hepatic MR or core biopsy. 2. Enlarged portacaval and epigastric lymph nodes, including a large lymph node between the main portal vein and IVC measuring 2.3 cm in short axis dimension. Findings may indicate malignancy. 3. Left lower lobe consolidation with a small pleural effusion. Findings likely indicate pneumonia. Electronically Signed: Ramirez aZvaleta MD at 7:18 EST , Chest x-ray as interpreted by the emergency medicine physician reveals fluid in the left lower lobe concerning for pleural effusion versus pneumonia Management Discussion w/another healthcare provider: Hospitalist Critical Care Time Critical Care Time: Yes Critical care time (excluding procedures): Discussing w/Patient &/or Family/Bessemer Converter Operator and - (Please note critical care time of 31 minutes) Discharge Plan Triage Chief Complaint: General Illness ED Provider: Marko Tristan Dx/Rx/DC Orders Clinical Impression: UTI (urinary tract infection), Generalized weakness, Current use of intermediate card tender anticoagulation, Jaundice, hepatocellular, Thrombocytopenia, Pneumonia, Atrial fibrillation with rapid ventricular response Primary Care Provider: Rupert Osullivan Disposition Disposition: Acute Care Hospital [facility]
[2023-06-08] MEDS: 0.9% Normal Saline (1000mL) 1,000 ML 75 ML IV (09:39)
[2023-06-08] MEDS: rifAXIMin 550 MG Tablet PO ×2 (10:48→20:55)
[2023-06-08] MEDS: Furosemide 40 MG Tablet PO ×2 (10:48→18:29)
[2023-06-08] MEDS: Levothyroxine 88 MCG Tablet PO (10:49)
[2023-06-08] MEDS: Aspirin E.C. 81 MG Tablet PO (10:49)
[2023-06-08] MEDS: Spironolactone 25 MG Tablet PO (10:50)
[2023-06-08] MEDS: Isosorbide Mononitrate 20 MG Tablet PO ×2 (10:51→20:55)
[2023-06-08] MEDS: Metoprolol(XL)Succ 25 MG Tablet PO (10:52)
[2023-06-08] MEDS: Pantoprazole Sodium 40 MG Tablet PO (10:53)
[2023-06-08] MEDS: Potassium Chloride Oral Tablet 10 MEQ 20 MEQ PO ×2 (10:56→18:29)
--- NOTE | 2023-06-08 11:33 | CON.PCM.CA_ITS ---
Assessment & Plan Assessment/Plan (1) Atrial fibrillation with rapid ventricular response: PLAN: Explained to the family that the mildly elevated ventricular rate is likely physiologic due to patient's discomfort/pain. If the heart rate goes up further we can increase the metoprolol to 50 mg p.o. daily. Other cardiac issues appear to be stable at this time. We will sign off at this time. If we can be of further assistance please let us know. HPI Consult Data Date of Consult: 06/08/23 HPI Narrative Reason for Consultation: A-fib HPI Narrative: LOUIS BOWERS, is a 82 F who presents with nausea. She has liver issues that are being treated at this time. Please see Dr. Mena's note from 05/30/2023 for full details regarding her cardiac issues. There is no significant change from that time. Her heart rate is between 100-115 at this time. She has generalized abdominal and bilateral subcostal discomfort with moving certain ways. [facility] Medical History Acute cystitis without hematuria Adverse drug reaction Afib Atherosclerosis of coronary artery bypass graft without angina pectoris Atherosclerosis of coronary artery of [place] heart without angina pectoris Back pain Carotid artery stenosis CHF (congestive heart failure) Chronic anemia COPD with acute exacerbation Degeneration of intervertebral disc of lumbosacral region Depression Dyspnea Dyspnea Elevated LFTs Essential hypertension GERD (gastroesophageal reflux disease) GI bleed (~02/16/16) History of GI bleed (02/2016) History of non-ST elevation myocardial infarction (NSTEMI) (06/24/05) HLD (hyperlipidemia) Hyperbilirubinemia Hypothyroidism Left bundle branch block Lumbar facet arthropathy Lumbosacral spondylosis Non-rheumatic aortic stenosis NSVT (nonsustained ventricular tachycardia) Obesity Old myocardial infarction ALMA (obstructive sleep apnea) Persistent atrial fibrillation Scarlet fever Severe aortic stenosis Thrombocytopenia Thyroid nodule Transaminasemia Home Medications levothyroxine 88 mcg tablet 88 mcg PO DAILY 11/23/13 [History Last Taken 06/07/23] multivitamin-ferrous fumarate-folic acid 18 mg-400 mcg tablet 1 ea PO DAILY 02/07/17 [History Last Taken 06/07/23] magnesium oxide 400 mg (241.3 mg magnesium) tablet (MagOx) 400 mg PO DAILY 12/31/18 [History Last Taken 06/07/23] Disability Parking Placard #1 ea 05/30/20 [Rx Last Taken Unknown] aspirin 81 mg tablet,delayed release (Adult Aspirin Regimen) 81 mg PO DAILY 05/02/22 [History Last Taken 06/07/23] isosorbide mononitrate 20 mg tablet See Rx Instructions .Route .COMPLEX #180 tabs 06/10/22 [Rx Last Taken 06/07/23] tiotropium 2.5 mcg-olodaterol 2.5 mcg/actuation mist for inhalation (Stiolto Respimat) 2 inh inhalation DAILY #4 grams 10/28/22 [Rx Last Taken 06/07/23] apixaban 5 mg tablet (Eliquis) 5 mg PO BID BLOOD THINNER #60 tabs 12/10/22 [Rx Last Taken 06/07/23] nitroglycerin 0.4 mg sublingual tablet See Rx Instructions .Route .COMPLEX #25 tabs 04/02/23 [Rx Last Taken Unknown] albuterol sulfate 90 mcg/actuation aerosol inhaler (Ventolin HFA) 2 puff inhalation Q4H PRN shortness of breath or wheezing #18 grams 04/08/23 [Rx Last Taken 06/07/23] pantoprazole 40 mg tablet,delayed release 40 mg PO DAILY #90 tabs 04/08/23 [Rx Last Taken 06/08/23] albuterol sulfate 2.5 mg/3 mL (0.083 %) solution for nebulization 2.5 mg (3 mL) inhalation Q4H PRN Sob &/Or Wheezing #180 mL 05/08/23 [Rx Last Taken 06/07/23] fluticasone furoate 100 mcg-vilanterol 25 mcg/dose inhalation powder (Breo Ellipta) 1 inh inhalation DAILY #60 ea 05/31/23 [Rx Last Taken 06/07/23] spironolactone 25 mg tablet 25 mg PO DAILY 06/05/23 [History Last Taken 06/07/23] tiotropium bromide 18 mcg capsule with inhalation device (Spiriva with HandiHaler) 1 cap inhalation DAILY 06/05/23 [History Last Taken Unknown] lactulose 20 gram/30 mL oral solution 20 g (30 mL) PO TID #3,000 mL 06/06/23 [Rx Last Taken 06/08/23] rifaximin 550 mg tablet (Xifaxan) 550 mg PO BID #60 tabs 06/06/23 [Rx Last Taken 06/07/23] furosemide 40 mg tablet 40 mg PO BID DIURETIC 06/08/23 [History Last Taken 06/07/23] metoclopramide HCl 5 mg tablet 2.5 mg PO Q8H PRN nausea and vomiting 06/08/23 [History Last Taken 06/07/23] metoprolol succinate 25 mg tablet,extended release 24 hr 25 mg PO DAILY BLOOD PRESSURE 06/08/23 [History Last Taken 06/07/23] ondansetron HCl 4 mg tablet 4 mg PO Q8H PRN nausea and vomiting 06/08/23 [History Last Taken 06/07/23] potassium chloride 20 mEq tablet,extended release(part/cryst) 20 meq PO BID POTASSIUM 06/08/23 [History Last Taken Unknown] rosuvastatin 40 mg tablet 40 mg PO DAILY CHOLESTEROL 06/08/23 [History Last Taken 06/07/23] Allergy/AdvReac Type Severity Reaction Status Date / Time adhesive AdvReac Rash Verified 06/05/23 19:45 nickel AdvReac Rash Verified 06/05/23 19:45 wool AdvReac Rash Verified 06/05/23 19:45 Family History Mother CAD (coronary artery disease) Hypertension Alzheimer disease Daughter CAD (coronary artery disease) Myocardial infarction Sister Breast cancer Myocardial infarction Brother Myocardial infarction Father CVA (cerebral vascular accident) Heart disease Hypertension Aneurysm and dissection of heart Surgical History H/O aortic valve replacement (01/31/16) History of aortic valve replacement with bioprosthetic valve (~01/31/16) History of cardiac catheterization (~2015) History of cataract extraction (~2008) History of colonoscopy (~2007) History of colonoscopy (~2015) History of electrophysiologic study (02/02/16) History of hysterectomy History of inguinal herniorrhaphy History of lumpectomy of left breast History of partial thyroidectomy (~2008) History of squamous cell carcinoma excision Hx of cholecystectomy Previous back surgery S/P CABG x 2 (10/22/05) S/P CABG x 3 (~1986) Status post Mohs surgery for basal cell carcinoma (~2007) Stented coronary artery (~06/24/05) Social History Smoking Status: Former smoker quit date: 04/07/02 pack-years: 35 second hand exposure: No alcohol intake: never substance use type: does not use caffeine: Yes Type: coffee Number of servings: 2 Physical Exam Const alert and oriented x3 Constitutional Narrative: Appears to be in mild to moderate distress due to pain and some shortness of breath HEENT normocephalic Resp normal respiratory effort Cardio Cardio Narrative: Irregular rhythm Risk Stratification Risk Stratification Applicable: No Charges/Coding Visit Charges Inpatient E&M: 74804 Init Hosp L1 Objective Data Vital Signs: Vital Signs Temp Pulse Resp BP Pulse Ox O2 Del Method O2 Flow Rate 97.4 F L 120 H 19 H 111/81 H 95 Nasal Cannula 2 06/08/23 08:51 06/08/23 10:52 06/08/23 08:51 06/08/23 10:41 06/08/23 08:51 06/08/23 08:51 06/08/23 08:51 Oxygen Flow Rate (L/min) 2 Oxygen Delivery Method Nasal Cannula Weight: 169 lb 15.622 oz Body Mass Index (BMI) 34.3 Intake & Output: Intake and Output for Last 24 Hours 06/06/23 06/07/23 06/08/23 23:59 23:59 23:59 Intake Total 600 / 600 Balance 600 / 600 Lab / Micro Data 06/08/23 05:11 06/08/23 05:11 Labs: Laboratory Results - last 24 hr 06/08/23 05:11: WBC 9.9, RBC 3.67 L, Hgb 11.2 L, Hct 33.2 L, MCV 90.5, MCH 30.5, MCHC 33.7, RDW Std Deviation 57.2 H, RDW Coeff of Ryan 17.9 H, Plt Count 42 L*, MPV TNP, Immature Gran % (Auto) 3.200 H, Neut % (Auto) 63.0, Lymph % (Auto) 17.4 L, [place] % (Auto) 15.1 H, Eos % (Auto) 0.5, Baso % (Auto) 0.8, Absolute Neuts (auto) 6.2, Absolute Lymphs (auto) 1.72, Nucleated RBC % 3.5, Diff Path Review May foll, Platelet Estimate MOD DEC, ESR 60 H, PT 26.7 H, INR 2.5, APTT 54.5 H, Sodium 129 L, Potassium 4.5, Chloride 93 L, Carbon Dioxide 29.0, Anion Gap 7, BUN 30 H, Creatinine 1.23 H, Estim Creat Clear Calc 32.05, Est GFR (MDRD) Af Amer 54 L, Est GFR (MDRD) Non-Af 44 L, BUN/Creatinine Ratio 24.4 H, Glucose 139 H, Calcium 8.2 L, Magnesium 2.8 H, Total Bilirubin 8.30 H, Direct Bilirubin 6.81 H, AST 507 H, ALT 149 H, Alkaline Phosphatase 392 H, C-React Prot Ext Range 23.10 H, B-Natriuretic Peptide 68.3, Total Protein 5.4 L, Albumin 2.3 L, Globulin 3.1, TSH 0.89 06/08/23 05:54: Urine Color [place]ila, Urine Clarity Sl. Cloudy, Urine pH 6.0, Ur Specific [place] 1.020, Urine Protein 100 H, Urine Glucose (UA) Normal, Urine Ketones 5 H, Urine Occult Blood 250 H, Urine Nitrite Positive H, Urine Bilirubin 3 H, Urine Urobilinogen 8 H, Ur Leukocyte Esterase 25 H, Urine RBC 0 SEEN, Urine WBC 5-10 SEEN, Ur Squamous Epith Cells 0 SEEN, Amorphous Sediment 1+, Urine Bacteria 3+, Coarse Granular Casts 5-10 SEEN, Urine Mucus 0 SEEN 06/08/23 06:33: Ammonia < 10.0 L ABG Data ABG results: ABG 06/08/23 06:41 Specimen Type JJ Sample Site Not entered VBG pH 7.51 H VBG pO2 47 H VBG HCO3 29 H VBG Total CO2 30 VBG O2 Sat (Calc) 87 H VBG Base Excess 6 H POC Mix VBG pCO2 Pt Tmp 35.8 L O2 Delivery Device Not entered Cardiology Labs/Tests 06/08/23 05:11: WBC 9.9, RBC 3.67 L, Hgb 11.2 L, Hct 33.2 L, MCV 90.5, MCH 30.5, MCHC 33.7, Plt Count 42 L*, MPV TNP, Immature Gran % (Auto) 3.200 H, Neut % (Auto) 63.0, Lymph % (Auto) 17.4 L, [place] % (Auto) 15.1 H, Eos % (Auto) 0.5, Baso % (Auto) 0.8, Absolute Neuts (auto) 6.2, Nucleated RBC % 3.5, PT 26.7 H, INR 2. 5, APTT 54.5 H, Sodium 129 L, Potassium 4.5, Chloride 93 L, Carbon Dioxide 29.0, Anion Gap 7, BUN 30 H, Creatinine 1.23 H, Est GFR (MDRD) Af Amer 54 L, Est GFR (MDRD) Non-Af 44 L, BUN/Creatinine Ratio 24.4 H, Glucose 139 H, Calcium 8.2 L, Magnesium 2.8 H, Total Bilirubin 8.30 H, Direct Bilirubin 6.81 H, B-Natriuretic Peptide 68.3 06/08/23 05:54: Urine Color [place], Urine Clarity Sl. Cloudy, Urine pH 6.0, Ur Specific [place] 1.020, Urine Protein 100 H, Urine Glucose (UA) Normal, Urine Ketones 5 H, Urine Occult Blood 250 H, Urine Nitrite Positive H, Urine Bilirubin 3 H, Urine Urobilinogen 8 H, Ur Leukocyte Esterase 25 H, Urine RBC 0 SEEN, Urine WBC 5-10 SEEN 06/08/23 06:41: VBG pH 7.51 H, VBG pO2 47 H, VBG HCO3 29 H, VBG O2 Sat (Calc) 87 H, VBG Base Excess 6 H Rhythm: EKG: ECHO: Stress Test: Cardiac Cath: PCI: CT Surgery: Holter monitor: EPS: PPM: CXR: Chest CT Scan: Radiography Diagnostic Testing: Radiology Impression Chest X-Ray 06/08/23 06:25 IMPRESSION: Moderate left pleural effusion and left lower lobe airspace disease. Findings may indicate pneumonia. Electronically Signed: Ramirez Zavaleta MD at 6:51 EST , Abdomen/Pelvis CT 06/08/23 06:29 IMPRESSION: 1. Hepatomegaly, with multiple small indeterminate hypodense lesions throughout the hepatic parenchyma measuring up to 1.6 cm. Findings could indicate primary or metastatic malignancy. ACR White Paper guidelines (Arrington, et al. JACR 2017; 14(11):6107-3146.) suggest the following. For patients with a low risk of malignancy, recommend hepatic MR. For patients with high risk of malignancy (known malignancy with a propensity to metastasize to the liver, cirrhosis, and/or other hepatic risk factors), recommend hepatic MR or core biopsy. 2. Enlarged portacaval and epigastric lymph nodes, including a large lymph node between the main portal vein and IVC measuring 2.3 cm in short axis dimension. Findings may indicate malignancy. 3. Left lower lobe consolidation with a small pleural effusion. Findings likely indicate pneumonia. Electronically Signed: Ramirez Zavaleta MD at 7:18 EST ,
[2023-06-08] MEDS: Budesonide Respules 0.5 MG/2 ML AMPUL.NEB. INHALATION ×2 (12:27→19:52)
[2023-06-08] MEDS: Ipratropium/Albuterol Sulfate 3 ML AMPUL.NEB INHALATION ×2 (12:27→19:52)
[2023-06-08] MEDS: Lactulose 20 GM/30 ML UDC PO ×2 (14:33→20:55)
[2023-06-08 15:44] LABS: Lactic Acid 2.2 mmol/L (0.4-1.9)
[2023-06-08] MEDS: Lactated Ringers 1,000 ML 75 ML IV (16:31)
--- NOTE | 2023-06-08 18:19 | CON.PCM.GI_ITS ---
HPI Consult Data Date of Consult: 06/08/23 HPI Narrative Reason for Consultation: Cirrhosis and worsening liver failure HPI Narrative: LOUIS BOWERS, is a 82 F who presents who is a DNR Comfort Care arrest with no intubation brought in from home secondary to increasing generalized weakness. 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 Daughter states that she was discharged home and has been home roughly 1 week. Since returning home patient has had slowly progressing weakness and daughter has noticed that her skin is now becoming yellow. Daughter states that the patient is unable to care for herself secondary to her weakness and rapidly progressing symptoms and therefore brings her in for repeat evaluation. She has a past medical history of hypertension,hyperlipidemia, hypothyroidism,obstructive sleep apnea, chronic atrial fibrillation; on Eliquis, chronic left bundle branch block, history of tobacco abuse; with subsequent COPD, coronary artery disease; status post NH with CABG x 3 (~1986) with redo x 2 (2005) plus coronary artery stent (2005), history of severe nonrheumatic aortic stenosis; s/p bioprosthetic aortic valve replacement (2015), history of GI bleed (2015) , history of cholecystectomy. [facility] inpatient 2.-24 Admitted for acute cystitis, cirrhosis with hyperbilirubinemia and thrombocytopenia. When patient presented on last visit to the hospital and was unknown that she had a diagnosis of cirrhosis. Her MELD was low at 14 and 16 with a bilirubin of 2.3, INR 0.8. 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 Her ammonia level was also normal during that visit. She was started on lactulose and Xifaxan. She also was not started on nadolol but was kept on metoprolol for variceal prophylaxis . When she comes in the hospital this time she is very jaundice and her bilirubin has jumped up to 8.7. Her direct bilirubin was 6.8, AST of 507, ALT of 149, alkaline phosphatase of 392, CRP of 23.1. She was not started any new antibiotics except for the antibiotics that she got in the hospital. No changes were made when she was seen in the clinic by Dr. Kenyon regarding her medicines. The thing that was different was a new CT scan abdomen pelvis had shown multiple lesions in her liver possibly secondary to metastatic disease or primary hepatocellular carcinoma. At this time she is not experiencing any encephalopathy but she does have a large bruise on her back following she states having a fall at home. She does not have much abdominal pain. She knows where she is, who she is and the year along with the president. She does complain of some mild swelling in her legs. [facility] Medical History Acute cystitis without hematuria Adverse drug reaction Afib Atherosclerosis of coronary artery bypass graft without angina pectoris Atherosclerosis of coronary artery of [place] heart without angina pectoris Back pain Carotid artery stenosis CHF (congestive heart failure) Chronic anemia COPD with acute exacerbation Degeneration of intervertebral disc of lumbosacral region Depression Dyspnea Dyspnea Elevated LFTs Essential hypertension GERD (gastroesophageal reflux disease) GI bleed (~02/16/16) History of GI bleed (02/2016) History of non-ST elevation myocardial infarction (NSTEMI) (06/24/05) HLD (hyperlipidemia) Hyperbilirubinemia Hypothyroidism Left bundle branch block Lumbar facet arthropathy Lumbosacral spondylosis Non-rheumatic aortic stenosis NSVT (nonsustained ventricular tachycardia) Obesity Old myocardial infarction ALMA (obstructive sleep apnea) Persistent atrial fibrillation Scarlet fever Severe aortic stenosis Thrombocytopenia Thyroid nodule Transaminasemia Home Medications levothyroxine 88 mcg tablet 88 mcg PO DAILY 11/23/13 [History Last Taken ] multivitamin-ferrous fumarate-folic acid 18 mg-400 mcg tablet 1 ea PO DAILY 02/07/17 [History Last Taken 06/07/23] magnesium oxide 400 mg (241.3 mg magnesium) tablet (MagOx) 400 mg PO DAILY [History Last Taken 06/07/23] Disability Parking Placard #1 ea 05/30/20 [Rx Last Taken Unknown] aspirin 81 mg tablet,delayed release (Adult Aspirin Regimen) 81 mg PO DAILY 05/02/22 [History Last Taken 06/07/23] isosorbide mononitrate 20 mg tablet See Rx Instructions .Route .COMPLEX #180 tabs 06/10/22 [Rx Last Taken 06/07/23] tiotropium 2.5 mcg-olodaterol 2.5 mcg/actuation mist for inhalation (Stiolto Respimat) 2 inh inhalation DAILY #4 grams 10/28/22 [Rx Last Taken 06/07/23] apixaban 5 mg tablet (Eliquis) 5 mg PO BID BLOOD THINNER #60 tabs 12/10/22 [Rx Last Taken 06/07/23] nitroglycerin 0.4 mg sublingual tablet See Rx Instructions .Route .COMPLEX #25 tabs 04/02/23 [Rx Last Taken Unknown] albuterol sulfate 90 mcg/actuation aerosol inhaler (Ventolin HFA) 2 puff inhalation Q4H PRN shortness of breath or wheezing #18 grams 04/08/23 [Rx Last Taken 06/07/23] pantoprazole 40 mg tablet,delayed release 40 mg PO DAILY #90 tabs 04/08/23 [Rx Last Taken 06/08/23] albuterol sulfate 2.5 mg/3 mL (0.083 %) solution for nebulization 2.5 mg (3 mL) inhalation Q4H PRN Sob &/Or Wheezing #180 mL 05/08/23 [Rx Last Taken 06/07/23] fluticasone furoate 100 mcg-vilanterol 25 mcg/dose inhalation powder (Breo Ellipta) 1 inh inhalation DAILY #60 ea 05/31/23 [Rx Last Taken 06/07/23] spironolactone 25 mg tablet 25 mg PO DAILY 06/05/23 [History Last Taken 06/07/23] tiotropium bromide 18 mcg capsule with inhalation device (Spiriva with HandiHaler) 1 cap inhalation DAILY 06/05/23 [History Last Taken Unknown] lactulose 20 gram/30 mL oral solution 20 g (30 mL) PO TID #3,000 mL 06/06/23 [Rx Last Taken 06/08/23] rifaximin 550 mg tablet (Xifaxan) 550 mg PO BID #60 tabs 06/06/23 [Rx Last Taken 06/07/23] furosemide 40 mg tablet 40 mg PO BID DIURETIC 06/08/23 [History Last Taken 06/07/23] metoclopramide HCl 5 mg tablet 2.5 mg PO Q8H PRN nausea and vomiting 06/08/23 [History Last Taken 06/07/23] metoprolol succinate 25 mg tablet,extended release 24 hr 25 mg PO DAILY BLOOD PRESSURE 06/08/23 [History Last Taken 06/07/23] ondansetron HCl 4 mg tablet 4 mg PO Q8H PRN nausea and vomiting 06/08/23 [History Last Taken 06/07/23] potassium chloride 20 mEq tablet,extended release(part/cryst) 20 meq PO BID POTA SSIUM 06/08/23 [History Last Taken Unknown] rosuvastatin 40 mg tablet 40 mg PO DAILY CHOLESTEROL 06/08/23 [History Last Taken 06/07/23] Allergy/AdvReac Type Severity Reaction Status Date / Time adhesive AdvReac Rash Verified 06/05/23 19:45 nickel AdvReac Rash Verified 06/05/23 19:45 wool AdvReac Rash Verified 06/05/23 19:45 Family History Mother CAD (coronary artery disease) Hypertension Alzheimer disease Daughter CAD (coronary artery disease) Myocardial infarction Sister Breast cancer Myocardial infarction Brother Myocardial infarction Father CVA (cerebral vascular accident) Heart disease Hypertension Aneurysm and dissection of heart Surgical History H/O aortic valve replacement (01/31/16) History of aortic valve replacement with bioprosthetic valve (~01/31/16) History of cardiac catheterization (~2015) History of cataract extraction (~2008) History of colonoscopy (~2007) History of colonoscopy (~2015) History of electrophysiologic study (02/02/16) History of hysterectomy History of inguinal herniorrhaphy History of lumpectomy of left breast History of partial thyroidectomy (~2008) History of squamous cell carcinoma excision Hx of cholecystectomy Previous back surgery S/P CABG x 2 (10/22/05) S/P CABG x 3 (~1986) Status post Mohs surgery for basal cell carcinoma (~2007) Stented coronary artery (~06/24/05) Social History Smoking Status: Former smoker quit date: 04/07/02 pack-years: 35 second hand exposure: No alcohol intake: never substance use type: does not use caffeine: Yes Type: coffee Number of servings: 2 ROS ROS Narrative deeply jaundiced Constitutional Constitutional: Reports anorexia, fatigue, malaise and weakness; Denies change in weight, chills or fever(s) ENT HEENT: Denies dysphagia Cardiovascular Cardiovascular: Denies chest pain, dyspnea on exertion, edema, lightheadedness, orthopnea, paroxysmal nocturnal dyspnea or rapid heart rate Respiratory/Chest Respiratory/Chest: Denies cough, dyspnea, shortness of breath at rest or shortness of breath with exertion Gastrointestinal Gastrointestinal: Reports abdominal pain; Denies constipation, diarrhea, dyspepsia, nausea or vomiting Neurologic Neurologic: Denies dizziness, focal weakness or headache(s) Psychiatric Psychiatric: Denies anxiety Endocrine Endocrinology: Denies change in body appearance Physical Exam Const alert, oriented x3, no apparent distress and average body habitus Constitutional Narrative: deeply jaundiced General Appearance: cooperative HEENT normocephalic, head/scalp atraumatic, hearing grossly normal bilaterally, moist oral mucous membranes and oropharynx normal Mouth: oral and palatal mucosa normal Eyes PERRL, EOMs intact bilaterally and conjunctivae normal Neck no lymphadenopathy and supple Resp normal respiratory effort, no retractions, no use of accessory muscles and clear to auscultation bilaterally Cardio regular rate, regular rhythm, S1 normal heart sound, S2 normal heart sound and no murmurs GI normal to inspection, nondistended, normoactive bowel sounds GI Narrative: liver is enlarged and palpable, tender. Extremity normal to inspection, full ROM and no clubbing, cyanosis or edema Neuro oriented x3, CN's II-XII intact bilaterally and moves all extremities Sensorium / Orientation: awake and alert Motor Exam: strength 5/5 throughout Psych affect normal Medical Records Data Medical Nutrition Assessment Dietitian: Malnutrition Criteria Met Start: 06/08/23 11:01 Freq: Status: Active Protocol: Document 06/08/23 11:01 [facility] (Rec: 06/08/23 11:02 [facility] [id number]) Nutrition Malnutrition Evidence of Malnutrition Exists Yes Malnutrition (severe): Acute Illness/Injury Evidenced By Suboptimal Energy Intake ( Severe),Weight Loss (Severe) Clinical Problem Acute Disease or Injury Related Malnutrition Etiology related to acute illness/ GI dysfunction Signs/Symptoms as evidenced by 3.6% wt loss x ~2 wks and po intake meeting < 75% of est nutritional needs Status Active Problem Recommendation Dietitian Recommendations/Changes As medically able, rec liberal regular diet d/t signs and symptoms of malnutrition As medically able, rec 4 oz chocolate ensure plus high protein 4x/day w/ medpass Lab / Micro Data 06/08/23 05:11 06/08/23 05:11 Labs: Laboratory Results - last 24 hr 06/08/23 05:11: WBC 9.9, RBC 3.67 L, Hgb 11.2 L, Hct 33.2 L, MCV 90.5, MCH 30.5, MCHC 33.7, RDW Std Deviation 57.2 H, RDW Coeff of Ryan 17.9 H, Plt Count 42 L*, MPV TNP, Immature Gran % (Auto) 3.200 H, Neut % (Auto) 63.0, Lymph % (Auto) 17.4 L, [place] % (Auto) 15.1 H, Eos % (Auto) 0.5, Baso % (Auto) 0.8, Absolute Neuts (auto) 6.2, Absolute Lymphs (auto) 1.72, Nucleated RBC % 3.5, Diff Path Review August, Platelet Estimate MOD DEC, ESR 60 H, PT 26.7 H, INR 2.5, APTT 54.5 H, Sodium 129 L, Potassium 4.5, Chloride 93 L, Carbon Dioxide 29.0, Anion Gap 7, BUN 30 H, Creatinine 1.23 H, Estim Creat Clear Calc 32.05, Est GFR (MDRD) Af Amer 54 L, Est GFR (MDRD) Non-Af 44 L, BUN/Creatinine Ratio 24.4 H, Glucose 139 H, Calcium 8.2 L, Magnesium 2.8 H, Total Bilirubin 8.30 H, Direct Bilirubin 6.81 H, AST 507 H, ALT 149 H, Alkaline Phosphatase 392 H, C-React Prot Ext Range 23.10 H, B-Natriuretic Peptide 68.3, Total Protein 5.4 L, Albumin 2.3 L, Globul in 3.1, TSH 0.89 06/08/23 05:54: Urine Color Sheila, Urine Clarity Sl. Cloudy, Urine pH 6.0, Ur Specific [place] 1.020, Urine Protein 100 H, Urine Glucose (UA) Normal, Urine Ketones 5 H, Urine Occult Blood 250 H, Urine Nitrite Positive H, Urine Bilirubin 3 H, Urine Urobilinogen 8 H, Ur Leukocyte Esterase 25 H, Urine RBC 0 SEEN, Urine WBC 5-10 SEEN, Ur Squamous Epith Cells 0 SEEN, Amorphous Sediment 1+, Urine Bacteria 3+, Coarse Granular Casts 5-10 SEEN, Urine Mucus 0 SEEN 06/08/23 06:33: Ammonia < 10.0 L 06/08/23 14:45: Lactic Acid 2.2 H* ABG Data ABG results: ABG 06/08/23 06:41 Specimen Type JJ Sample Site Not entered VBG pH 7.51 H VBG pO2 47 H VBG HCO3 29 H VBG Total CO2 30 VBG O2 Sat (Calc) 87 H VBG Base Excess 6 H POC Mix VBG pCO2 Pt Tmp 35.8 L O2 Delivery Device Not entered Imaging Radiology Impression Chest X-Ray 06/08/23 06:25 IMPRESSION: Moderate left pleural effusion and left lower lobe airspace disease. Findings may indicate pneumonia. Electronically Signed: Ramirez Zavaleta MD at 6:51 EST , Abdomen/Pelvis CT 06/08/23 06:29 IMPRESSION: 1. Hepatomegaly, with multiple small indeterminate hypodense lesions throughout the hepatic parenchyma measuring up to 1.6 cm. Findings could indicate primary or metastatic malignancy. ACR White Paper guidelines (Bandar et al. JACR 2017; 14(11):4436-6818.) suggest the following. For patients with a low risk of malignancy, recommend hepatic MR. For patients with high risk of malignancy (known malignancy with a propensity to metastasize to the liver, cirrhosis, and/or other hepatic risk factors), recommend hepatic MR or core biopsy. 2. Enlarged portacaval and epigastric lymph nodes, including a large lymph node between the main portal vein and IVC measuring 2.3 cm in short axis dimension. Findings may indicate malignancy. 3. Left lower lobe consolidation with a small pleural effusion. Findings likely indicate pneumonia. Electronically Signed: Ramirez Zavaleta MD at 7:18 EST , Assessment & Plan Assessment/Plan (1) Thrombocytopenia: (2) Jaundice, hepatocellular: (3) Cirrhosis of liver: PLAN: Plan 82-year-old with Mercado cirrhosis comes in with worsening jaundice, worsening liver enzymes, elevated INR and new lesions on her liver. Differential diagnosis does include decompensated liver disease secondary to hepatocellular carcinoma causing increased INR and worsening platelet count. I will send off AFP, CEA, CA 19-9, CA125, CA 15-3. Recommend to check a lactic acid and change fluids to lactated Ringer's if she does have a lactic acidosis. I will also start midodrine 10 mg p.o. 3 times daily and vitamin K to see if her INR improves.. Went over her prognosis with her family being that her new MELD is 38 and that is associated with a 60% mortality and 85% morbidity in the next 30 days associated with decompensated liver disease and primary liver cancer versus metastatic liver cancer. Patient says that she just wants to be comfortable at this time. She has poor prognosis. Charges/Coding Visit Charges Inpatient E&M: 97905 Init Hosp L3
[2023-06-08 18:49] LABS: Reflex Lactate? Y
[2023-06-08] MEDS: Phytonadione (Vit K1) 5 MG TABLET PO (18:53)
[2023-06-08 20:47] LABS: Lactic Acid 3.5 mmol/L (0.4-1.9)
[2023-06-09] VITALS (14 sets, daily range): BP systolic 88–114; BP diastolic 43–71; PULSE 101–130; RESP 16–24; TEMP 35.8–36.6; O2SAT 92–100
[2023-06-09] MEDS: Levothyroxine 88 MCG Tablet PO (05:26)
[2023-06-09] MEDS: Lactated Ringers 1,000 ML 75 ML IV (05:46)
--- NOTE | 2023-06-09 06:48 | CON.PCM.CC_ITS ---
Assessment & Plan Assessment/Plan (1) Cirrhosis of liver: (2) UTI (urinary tract infection): (3) Jaundice, hepatocellular: (4) Atrial fibrillation with rapid ventricular response: PLAN: Plan RECOMMENDATIONS: 1. Continue current bronchodilator therapy. 2. Supplemental oxygen, if needed. 3. Resume triple therapy inhaler regimen with Breo and Spiriva at discharge. 4. Follow-up in the pulmonary medicine clinic on June 24, as scheduled. 5. Will sign off at this time. Please call with any additional questions. IMPRESSIONS: 1. History of COPD/asthma overlap syndrome The patient is currently followed by Dr. Bowers in the pulmonary medicine clinic and was last seen by our nurse practitioner on May 20, following treatment for an exacerbation. At the conclusion of her last hospitalization, recommendations were made to transition the patient to a triple therapy inhaler regimen with Breo Ellipta and Spiriva. The patient was readmitted to the hospital with issues unrelated to her respiratory status. She is currently being medically managed for decompensated cirrhosis and atrial fibrillation with RVR. Her respiratory status is stable. We were asked to evaluate the patient, Per family request . I have no new additional recommendations from a pulmonary perspective. She should resume her triple therapy inhaler regimen at discharge. Continue supplemental oxygen as needed. Follow-up in the pulmonary medicine clinic with Dr. Bowers, as scheduled, on June 24. 2. Decompensated cirrhosis/atrial fibrillation with RVR/thrombocytopenia/coagulopathy/coronary artery disease/hypothyroidism Complicates care, management, recovery and prognosis. Will defer the remainder of the patient's medical care to hospitalist and gastroenterology. This note was generated with [employer] dictation software. It may contain incorrect words, spelling, and punctuation that were not noted in checking the note before signing. HPI Consult Data Date of Consult: 06/09/23 HPI Narrative Reason for Consultation: Per family request HPI Narrative: The patient is an 82-year-old female, with a history as outlined below, who pre sented to the emergency department on June 07 with generalized weakness. The patient is currently being followed by gastroenterology on an outpatient basis due to a history of cirrhosis. The patient is currently followed in the pulmonary medicine clinic due to a history of asthma/COPD overlap along with obstructive sleep apnea. She is regularly followed by Dr. Bowers but was last seen by Yenifer Cope on May 20 following completion of a prednisone burst for an exacerbation. The patient was also recently admitted May 24 through with a UTI and hyperbilirubinemia. We were asked to see the patient in consult during that hospitalization as well. Our recommendations at that yobany e included transitioning the patient from Arnuity to Breo Ellipta and continuing Spiriva Respimat. The patient is currently scheduled to follow-up in the pulmonary medicine clinic with Dr. Bowers on June 24. On presentation to the emergency department, the patient was noted to be afebrile and hemodynamically stable. Initial laboratory evaluation revealed a normal white blood cell count. Platelet count was low at 42,000. Chemistry profile was notable for a sodium of 129, chloride of 93 and creatinine of 1.23. The patient had a total bilirubin level of 8.3 with an AST of 507, ALT of 149 a nd alkaline phosphatase of 392. Urine analysis was positive for nitrites, leukocyte esterase and 3+ urine bacteria. CT abdomen/pelvis made incidental note of a left lower lobe consolidation with small pleural effusion. The patient is currently being maintained on scheduled Pulmicort and DuoNebs. The patient's hospital course has been also complicated by new onset atrial fibrillation, for which cardiology is currently following. [facility] Medical History Acute cystitis without hematuria Adverse drug reaction Afib Atherosclerosis of coronary artery bypass graft without angina pectoris Atherosclerosis of coronary artery of [place] heart without angina pectoris Back pain Carotid artery stenosis CHF (congestive heart failure) Chronic anemia COPD with acute exacerbation Degeneration of intervertebral disc of lumbosacral region Depression Dyspnea Dyspnea Elevated LFTs Essential hypertension GERD (gastroesophageal reflux disease) GI bleed (~02/16/16) History of GI bleed (02/2016) History of non-ST elevation myocardial infarction (NSTEMI) (06/24/05) HLD (hyperlipidemia) Hyperbilirubinemia Hypothyroidism Left bundle branch block Lumbar facet arthropathy Lumbosacral spondylosis Non-rheumatic aortic stenosis NSVT (nonsustained ventricular tachycardia) Obesity Old myocardial infarction ALMA (obstructive sleep apnea) Persistent atrial fibrillation Scarlet fever Severe aortic stenosis Thrombocytopenia Thyroid nodule Transaminasemia Home Medications levothyroxine 88 mcg tablet 88 mcg PO DAILY 11/23/13 [History Last Taken 06/07/23] multivitamin-ferrous fumarate-folic acid 18 mg-400 mcg tablet 1 ea PO DAILY 02/07/17 [History Last Taken 06/07/23] magnesium oxide 400 mg (241.3 mg magnesium) tablet (MagOx) 400 mg PO DAILY 12/31/18 [History Last Taken 06/07/23] Disability Parking Placard #1 ea 05/30/20 [Rx Last Taken Unknown] aspirin 81 mg tablet,delayed release (Adult Aspirin Regimen) 81 mg PO DAILY 05/02/22 [History Last Taken 06/07/23] isosorbide mononitrate 20 mg tablet See Rx Instructions .Route .COMPLEX #180 tabs 06/10/22 [Rx Last Taken 06/07/23] tiotropium 2.5 mcg-olodaterol 2.5 mcg/actuation mist for inhalation (Stiolto Respimat) 2 inh inhalation DAILY #4 grams 10/28/22 [Rx Last Taken 06/07/23] apixaban 5 mg tablet (Eliquis) 5 mg PO BID BLOOD THINNER #60 tabs 12/10/22 [Rx Last Taken 06/07/23] nitroglycerin 0.4 mg sublingual tablet See Rx Instructions .Route .COMPLEX #25 tabs 04/02/23 [Rx Last Taken Unknown] albuterol sulfate 90 mcg/actuation aerosol inhaler (Ventolin HFA) 2 puff inhalation Q4H PRN shortness of breath or wheezing #18 grams 04/08/23 [Rx Last Taken 06/07/23] pantoprazole 40 mg tablet,delayed release 40 mg PO DAILY #90 tabs 04/08/23 [Rx Last Taken 06/08/23] albuterol sulfate 2.5 mg/3 mL (0.083 %) solution for nebulization 2.5 mg (3 mL) inhalation Q4H PRN Sob &/Or Wheezing #180 mL 05/08/23 [Rx Last Taken 06/07/23] fluticasone furoate 100 mcg-vilanterol 25 mcg/dose inhalation powder (Breo Ellip ta) 1 inh inhalation DAILY #60 ea 05/31/23 [Rx Last Taken 06/07/23] spironolactone 25 mg tablet 25 mg PO DAILY 06/05/23 [History Last Taken 06/07/23] tiotropium bromide 18 mcg capsule with inhalation device (Spiriva with HandiHaler) 1 cap inhalation DAILY 06/05/23 [History Last Taken Unknown] lactulose 20 gram/30 mL oral solution 20 g (30 mL) PO TID #3,000 mL 06/06/23 [Rx Last Taken 06/08/23] rifaximin 550 mg tablet (Xifaxan) 550 mg PO BID #60 tabs 06/06/23 [Rx Last Taken 06/07/23] furosemide 40 mg tablet 40 mg PO BID DIURETIC 06/08/23 [History Last Taken 06/07/23] metoclopramide HCl 5 mg tablet 2.5 mg PO Q8H PRN nausea and vomiting 06/08/23 [History Last Taken 06/07/23] metoprolol succinate 25 mg tablet,extended release 24 hr 25 mg PO DAILY BLOOD PRESSURE 06/08/23 [History Last Taken 06/07/23] ondansetron HCl 4 mg tablet 4 mg PO Q8H PRN nausea and vomiting 06/08/23 [History Last Taken 06/07/23] potassium chloride 20 mEq tablet,extended release(part/cryst) 20 meq PO BID POTASSIUM 06/08/23 [History Last Taken Unknown] rosuvastatin 40 mg tablet 40 mg PO DAILY CHOLESTEROL 06/08/23 [History Last Taken 06/07/23] Allergy/AdvReac Type Severity Reaction Status Date / Time adhesive AdvReac Rash Verified 06/05/23 19:45 nickel AdvReac Rash Verified 06/05/23 19:45 wool AdvReac Rash Verified 06/05/23 19:45 Family History Mother CAD (coronary artery disease) Hypertension Alzheimer disease Daughter CAD (coronary artery disease) Myocardial infarction Sister Breast cancer Myocardial infarction Brother Myocardial infarction Father CVA (cerebral vascular accident) Heart disease Hypertension Aneurysm and dissection of heart Surgical History H/O aortic valve replacement (01/31/16) History of aortic valve replacement with bioprosthetic valve (~01/31/16) History of cardiac catheterization (~2015) History of cataract extraction (~2008) History of colonoscopy (~2007) History of colonoscopy (~2015) History of electrophysiologic study (02/02/16) History of hysterectomy History of inguinal herniorrhaphy History of lumpectomy of left breast History of partial thyroidectomy (~2008) History of squamous cell carcinoma excision Hx of cholecystectomy Previous back surgery S/P CABG x 2 (10/22/05) S/P CABG x 3 (~1986) Status post Mohs surgery for basal cell carcinoma (~2007) Stented coronary artery (~06/24/05) Social History Smoking Status: Former smoker quit date: 04/07/02 pack-years: 35 second hand exposure: No alcohol intake: never substance use type: does not use caffeine: Yes Type: coffee Number of servings: 2 ROS ROS Narrative 10 systems were personally reviewed with pertinent positives as noted in the HPI above. Physical Exam Const alert and no apparent distress Constitutional Narrative: Obese. Resting comfortably in bed. Jaundiced in appearance. General Appearance: cooperative HEENT normocephalic and head/scalp atraumatic Eyes PERRL and EOMs intact bilaterally Neck supple General: trachea midline Chest inspection of chest normal Resp normal respiratory effort Auscultation: wheezes Cardio regular rate and regular rhythm GI normal to inspection, nondistended, normoactive bowel sounds Extremity General Extremity: edema bilateral lower extremity; Negative for clubbing Skin no rashes or lesions noted Neuro CN's II-XII intact bilaterally and no focal motor deficits Psych Mood & Affect: flat affect Medical Records Data Medical Nutrition Assessment Dietitian: Malnutrition Criteria Met Start: 06/08/23 11:0 1 Freq: Status: Active Protocol: Document 06/08/23 11:01 [facility] (Rec: 06/08/23 11:02 [facility] [id number]) Nutrition Malnutrition Evidence of Malnutrition Exists Yes Malnutrition (severe): Acute Illness/Injury Evidenced By Suboptimal Energy Intake ( Severe),Weight Loss (Severe) Clinical Problem Acute Disease or Injury Related Malnutrition Etiology related to acute illness/ GI dysfunction Signs/Symptoms as evidenced by 3.6% wt loss x ~2 wks and po intake meeting < 75% of est nutritional needs Status Active Problem Recommendation Dietitian Recommendations/Changes As medically able, rec liberal regular diet d/t signs and symptoms of malnutrition As medically able, rec 4 oz chocolate ensure plus high protein 4x/day w/ medpass Lab / Micro Data 06/09/23 06:30 06/09/23 06:30 Labs: Laboratory Results - last 24 hr 06/08/23 05:11: Diff Path Review May foll, Platelet Estimate MOD 06/08/23 06:33: Ammonia < 10.0 L 06/08/23 14:45: Lactic Acid 2.2 H* 06/08/23 20:02: Lactic Acid 3.5 H* Imaging Radiology Impression Chest X-Ray 06/08/23 06:25 IMPRESSION: Moderate left pleural effusion and left lower lobe airspace disease. Findings may indicate pneumonia. Electronically Signed: Ramirez Zavaleta MD at 6:51 EST , Abdomen/Pelvis CT 06/08/23 06:29 IMPRESSION: 1. Hepatomegaly, with multiple small indeterminate hypodense lesions throughout the hepatic parenchyma measuring up to 1.6 cm. Findings could indicate primary or metastatic malignancy. ACR White Paper guidelines (Bandar, et al. JACR 2017; 14(11):9767-0653.) suggest the following. For patients with a low risk of malignancy, recommend hepatic MR. For patients with high risk of malignancy (known malignancy with a propensity to metastasize to the liver, cirrhosis, and/or other hepatic risk factors), recommend hepatic MR or core biopsy. 2. Enlarged portacaval and epigastric lymph nodes, including a large lymph node between the main portal vein and IVC measuring 2.3 cm in short axis dimension. Findings may indicate malignancy. 3. Left lower lobe consolidation with a small pleural effusion. Findings likely indicate pneumonia. Electronically Signed: Ramirez Zavaleta MD at 7:18 EST , Charges/Coding Visit Charges Inpatient E&M: 64546 Init Hosp L2
[2023-06-09 06:53] LABS: Absolute Lymphocyte Count 2.16 X10^3/uL (0.83-4.51); Absolute Neutrophil Count 7.3 X10^3/uL (2.0-7.7); Basophil# 0.09 X10^3/uL; Eosinophil# 0.05 X10^3/uL; Hematocrit 28.3 % (37-47); Hemoglobin 9.5 g/dL (12.0-15.0); Lymphocyte # 2.16 X10^3/ul (0.83-4.51); Mean Corp Hgb Conc 33.6 g/dL (32-36); Mean Corpuscular Hgb 30.6 pg (27.0-32.0); Mean Corpuscular Volume 91.3 fL (81-99); Monocyte# 1.68 X10^3/uL; NRBC Flagged by Analyzer 5.3 % (0-5); Neutrophil # 7.26 X10^3/uL (2.7-7.7); POSITIVE COUNT YES; POSITIVE DIFFERENTIAL YES; POSITIVE MORPHOLOGY YES; RBC Distribution Width CV 18.4 % (11.6-14.6); RBC Distribution Width SD 58.1 fl (35.1-43.9)
[2023-06-09] MEDS: Ipratropium/Albuterol Sulfate 3 ML AMPUL.NEB INHALATION ×3 (07:05→19:38)
[2023-06-09 07:06] LABS: Platelet Count 29 K/mm3 (150-450)
[2023-06-09] MEDS: Budesonide Respules 0.5 MG/2 ML AMPUL.NEB. INHALATION ×2 (07:06→19:38)
[2023-06-09 07:07] LABS: Differential Indicated SCAN CRITERIA MET
[2023-06-09 07:16] LABS: ALB/GLOB Ratio 0.8 RATIO (0.9-2.4); AST(SGOT) 495 U/L (15-37); Alanine Aminotransfer ALT/SGPT 163 U/L (13-56); Albumin, Serum 2.1 g/dL (3.2-5.0); Alkaline Phosphatase 382 U/L (45-117); Anion Gap 8 (5-15); BUN 41 mg/dL (7-18); BUN/Creat Ratio 27.5 RATIO (10-20); Chloride 97 mmol/L (98-107); Creatinine, Serum 1.49 mg/dL (0.55-1.02); EST Glomerular Filtration Rate 36 mL/min (>60); Est Glom Filt Rate - Afr Amer 43 mL/min (>60); Estimated Creatinine Clearance 26.26 ml/min; Globulin 2.8 g/dL (2.2-4.2); Glucose 140 mg/dL (74-106); Potassium 4.6 mmol/L (3.5-5.1); Protein, Total 4.9 g/dL (6.4-8.2); Sodium Level 129 mmol/L (136-145)
[2023-06-09] MEDS: rifAXIMin 550 MG Tablet PO (08:03)
[2023-06-09] MEDS: Metoprolol(XL)Succ 25 MG Tablet PO (08:03)
[2023-06-09] MEDS: Furosemide 40 MG Tablet PO (08:04)
[2023-06-09] MEDS: Pantoprazole Sodium 40 MG Tablet PO (08:04)
[2023-06-09] MEDS: Isosorbide Mononitrate 20 MG Tablet PO (08:04)
[2023-06-09] MEDS: Spironolactone 25 MG Tablet PO (08:04)
--- NOTE | 2023-06-09 08:15 | EX.PCM.PN.GI ---
Subjective Subjective Patient is showing signs of encephalopathy and is very jaundice. She also continues to be hypotensive and tachycardic Objective Data Objective Data Vital Signs: Vital Signs Temp Pulse Resp BP Pulse Ox O2 Del Method O2 Flow Rate 97.6 F L 108 H 24 H 109/53 L 100 Nasal Cannula 2 06/09/23 17:18 06/09/23 17:18 06/09/23 17:18 06/09/23 17:18 06/09/23 17:18 06/09/23 17:18 06/09/23 17:18 Oxygen Flow Rate (L/min) 2 Oxygen Delivery Method Nasal Cannula Weight: 169 lb 15.622 oz Body Mass Index (BMI) 34.3 Intake & Output: Intake and Output for Last 24 Hours 06/07/23 06/08/23 06/09/23 23:59 23:59 23:59 Intake Total 1115 / 1115 1790.00 / 1790.00 Balance 1115 / 1115 1790.00 / 1790.00 Medical Nutrition Assessment Dietitian: Malnutrition Criteria Met Start: 06/08/23 11:01 Freq: Status: Active Protocol: Document 06/08/23 11:01 [facility] (Rec: 06/08/23 11:02 SLA [id number]) Nutrition Malnutrition Evidence of Malnutrition Exists Yes Malnutrition (severe): Acute Illness/Injury Evidenced By Suboptimal Energy Intake ( Severe),Weight Loss (Severe) Clinical Problem Acute Disease or Injury Related Malnutrition Etiology related to acute illness/ GI dysfunction Signs/Symptoms as evidenced by 3.6% wt loss x ~2 wks and po intake meeting < 75% of est nutritional needs Status Active Problem Recommendation Dietitian Recommendations/Changes As medically able, rec liberal regular diet d/t signs and symptoms of malnutrition As medically able, rec 4 oz chocolate ensure plus high protein 4x/day w/ medpass Lab / Micro Data 06/09/23 06:30 06/09/23 06:30 Labs: Laboratory Results - last 24 hr 06/08/23 05:11: Diff Path Review Reviewed 06/08/23 20:02: Lactic Acid 3.5 H* 06/09/23 06:30: WBC TAPE MAKING MACHINE OPERATOR, Corrected WBC 10.7, RBC 3.10 L, Hgb 9.5 L, Hct 28.3 L, MCV 91.3, MCH 30.6, MCHC 33.6, RDW Std Deviation 58.1 H, RDW Coeff of Ryan 18.4 H, Plt Count 29 L*, MPV TNP, Immature Gran % (Auto) TAPE MAKING MACHINE OPERATOR, Neut % (Auto) TAPE MAKING MACHINE OPERATOR, Lymph % (Auto) TAPE MAKING MACHINE OPERATOR, [place] % (Auto) TAPE MAKING MACHINE OPERATOR, Eos % (Auto) TAPE MAKING MACHINE OPERATOR, Baso % (Auto) TAPE MAKING MACHINE OPERATOR, Absolute Neuts (auto) 7.3, Absolute Lymphs (auto) 2.16, Total Counted 100, Neutrophils % (Manual) 64, Band Neutrophils % 8 H, Lymphocytes % (Manual) 10 L, Monocytes % (Manual) 11 H, Eosinophils % (Manual) 3, Metamyelocytes % 2 H, Myelocytes % 2 H, Nucleated RBC % 5.3 H, Nucleated RBCs/100 WBC 8 H, Diff Path Review August, Platelet Estimate MOD DEC, RBC Morphology NORM C+C, Sodium 129 L, Potassium 4.6, Chloride 97 L, Carbon Dioxide 24.0, Anion Gap 8, BUN 41 H, Creatinine 1.49 H, Estim Creat Clear Calc 26.26, Est GFR (MDRD) Af Amer 43 L, Est GFR (MDRD) Non-Af 36 L, BUN/Creatinine Ratio 27.5 H, Glucose 140 H, Calcium 9.0, Total Bilirubin 9.20 H, AST 495 H, ALT 163 H, Alkaline Phosphatase 382 H, Total Protein 4.9 L, Albumin 2.1 L, Globulin 2.8, Albumin/Globulin Ratio 0.8 L 06/09/23 08:56: PT 21.5 H, INR 1.9 Micro: Microbiology 06/09/23 03:13 Stool Stool Occult Blood (TRISTIN) - Final Occult Blood Positive Physical Exam Const alert and no apparent distress Constitutional Narrative: Obese. Resting comfortably in bed. Jaundiced in appearance. General Appearance: cooperative HEENT normocephalic and head/scalp atraumatic Eyes PERRL and EOMs intact bilaterally Neck supple General: trachea midline Chest inspection of chest normal Resp normal respiratory effort Auscultation: wheezes Cardio regular rate and regular rhythm GI normal to inspection, nondistended, normoactive bowel sounds Extremity General Extremity: edema bilateral lower extremity; Negative for clubbing Skin no rashes or lesions noted Neuro CN's II-XII intact bilaterally and no focal motor deficits Psych Mood & Affect: flat affect Assessment & Plan Assessment/Plan (1) Thrombocytopenia: (2) Jaundice, hepatocellular: (3) Cirrhosis of liver: PLAN: Plan 82-year-old with Mercado cirrhosis comes in with worsening jaundice, worsening liver enzymes, elevated INR and new lesions on her liver. Differential diagnosis does include decompensated liver disease secondary to hepatocellular carcinoma causing increased INR and worsening platelet count. I will send off AFP, CEA, CA 19-9, CA125, CA 15-3. Recommend to check a lactic acid and change fluids to lactated Ringer's if she does have a lactic acidosis. I will also start midodrine 10 mg p.o. 3 times daily and vitamin K to see if her INR improves.. Went over her prognosis with her family being that her new MELD is 38 and that is associated with a 60% mortality and 85% morbidity in the next 30 days associated with decompensated liver disease and primary liver cancer versus metastatic liver cancer. Patient says that she just wants to be comfortable at this time. She has poor prognosis. 06/09/23-patient is showing signs and symptoms of hepatorenal syndrome. Until the family decides what they want to do in regard of her poor prognosis of severely decompensated liver disease with acute on chronic liver failure from likely hepatocellular carcinoma versus metastatic disease to the liver. Some of her tachycardia is from midodrine that was started yesterday. She will need albumin, octreotide and possibly N-acetylcysteine. Family is deciding regarding hospice. Charges/Coding Visit Charges Inpatient E&M: 15713 Subs Hosp L3
[2023-06-09 08:30] LABS: Corrected WBC 10.7 K/mm3 (4.4-11.0); Eosinophil 3 % (0-5); Lymphocyte 10 % (19-41); Metamyelocyte 2 % (0-1); Monocyte 11 % (0-10); Myelocyte 2 % (0-0); Neutrophil-Band 8 % (0-5); Nucleated Red Bld Cells,Manual 8 % (0-5); Total Cells Counted 100 (MANUAL DIFF)
[2023-06-09 08:31] LABS: Neutrophil-Segmented 64 % (47-70)
[2023-06-09 08:32] LABS: Platelet Estimate MOD DEC (ADEQ); Red Cell Morphology NORM C+C NORMAL (NORM C&C)
[2023-06-09 08:35] LABS: Scan Smear per Review Criteria MANUAL DIFF
[2023-06-09 09:18] LABS: International Normalized Ratio 1.9; Prothrombin Time (Protime)PT. 21.5 SECONDS (11.7-14.9)
--- NOTE | 2023-06-09 13:08 | PCM.PN.HOSP ---
Reason for Visit Reason for Visit: Diagnoses Thrombocytopenia, unspecified (06/08/23) Unspecified atrial fibrillation (06/08/23) Pneumonia, unspecified organism (06/08/23) Unspecified cirrhosis of liver (06/08/23) Other specified diseases of liver (06/08/23) Urinary tract infection, site not specified (06/08/23) Subjective Subjective Patient seen at bedside this morning, friend present. Daughters were also present for the conversation over the phone. Patient was sitting up in bed and appeared moderately fatigued and somewhat lethargic. She was making appropriate eye contact with questions but answering with only short, soft responses. Denied any acute pain or discomfort this morning. No other acute concerns. Met with family again at the bedside this afternoon. Both daughters and patient's friend were present for this conversation. Discussed with them patient's overall clinical picture and prognosis. Notably had discussed the settings with Dr. Barton over the phone prior to conversation with family, and Dr. Barton was in agreement that patient's acute fulminant liver failure is most likely secondary to hepatocellular carcinoma, and patient would not be a candidate for treatment for this. Patient's daughters were readily in agreement that patient was ready to pursue hospice care measures. Daughters had actually been to the inpatient [facility] facility this morning to see the facility and were very happy with it. They also spoke with the patient's PCP recently and he was in agreement that hospice care was in the patient's best interest. After this conversation, orders were placed for DNRCC status and hospice consult. Objective Data Objective Data Vital Signs: Vital Signs Temp Pulse Resp BP Pulse Ox O2 Del Method O2 Flow Rate 97.5 F L 114 H 20 H 91/62 97 Nasal Cannula 2 06/09/23 11:28 06/09/23 11:28 06/09/23 11:28 06/09/23 11:28 06/09/23 11:28 06/09/23 11:28 06/09/23 11:28 Oxygen Flow Rate (L/min) 2 Oxygen Delivery Method Nasal Cannula Weight: 77.1 kg Body Mass Index (BMI) 34.3 Intake & Output: Intake and Output for Last 24 Hours 06/07/23 06/08/23 06/09/23 23:59 23:59 23:59 Intake Total 1115 / 1115 1093.75 / 1093.75 Balance 1115 / 1115 1093.75 / 1093.75 Medical Nutrition Assessment Dietitian: Malnutrition Criteria Met Start: 06/08/23 11:01 Freq: Status: Active Protocol: Document 06/08/23 11:01 [facility] (Rec: 06/08/23 11:02 [facility] [id number]) Nutrition Malnutrition Evidence of Malnutrition Exists Yes Malnutrition (severe): Acute Illness/Injury Evidenced By Suboptimal Energy Intake ( Severe),Weight Loss (Severe) Clinical Problem Acute Disease or Injury Related Malnutrition Etiology related to acute illness/ GI dysfunction Signs/Symptoms as evidenced by 3.6% wt loss x ~2 wks and po intake meeting < 75% of est nutritional needs Status Active Problem Recommendation Dietitian Recommendations/Changes As medically able, rec liberal regular diet d/t signs and symptoms of malnutrition As medically able, rec 4 oz chocolate ensure plus high protein 4x/day w/ medpass Lab / Micro Data 06/09/23 06:30 06/09/23 06:30 Labs: Laboratory Results - last 24 hr 06/08/23 14:45: Lactic Acid 2.2 H* 06/08/23 20:02: Lactic Acid 3.5 H* 06/09/23 06:30: WBC QUALITY ASSURANCE CONSULTANT, Corrected WBC 10.7, RBC 3.10 L, Hgb 9.5 L, Hct 28.3 L, MCV 91.3, MCH 30.6, MCHC 33.6, RDW Std Deviation 58.1 H, RDW Coeff of Ryan 18.4 H, Plt Count 29 L*, MPV TNP, Immature Gran % (Auto) QUALITY ASSURANCE CONSULTANT, Neut % (Auto) QUALITY ASSURANCE CONSULTANT, Lymph % (Auto) QUALITY ASSURANCE CONSULTANT, Weakley % (Auto) QUALITY ASSURANCE CONSULTANT, Eos % (Auto) QUALITY ASSURANCE CONSULTANT, Baso % (Auto) QUALITY ASSURANCE CONSULTANT, Absolute Neuts (auto) 7.3, Absolute Lymphs (auto) 2.16, Total Counted 100, Neutrophils % (Manual) 64, Band Neutrophils % 8 H, Lymphocytes % (Manual) 10 L, Monocytes % (Manual) 11 H, Eosinophils % (Manual) 3, Metamyelocytes % 2 H, Myelocytes % 2 H, Nucleated RBC % 5.3 H, Nucleated RBCs/100 WBC 8 H, Diff Path Review May foll, Platelet Estimate MOD DEC, RBC Morphology NORM C+C, Sodium 129 L, Potassium 4.6, Chloride 97 L, Carbon Dioxide 24.0, Anion Gap 8, BUN 41 H, Creatinine 1.49 H, Estim Creat Clear Calc 26.26, Est GFR (MDRD) Af Amer 43 L, Est GFR (MDRD) Non-Af 36 L, BUN/Creatinine Ratio 27.5 H, Glucose 140 H, Calcium 9.0, Total Bilirubin 9.20 H, AST 495 H, ALT 163 H, Alkaline Phosphatase 382 H, Total Protein 4.9 L, Albumin 2.1 L, Globulin 2.8, Albumin/Globulin Ratio 0.8 L 06/09/23 08:56: PT 21.5 H, INR 1.9 Micro: Microbiology 06/09/23 03:13 Stool Stool Occult Blood (TRISTIN) - Final Occult Blood Positive Physical Exam Const alert and no apparent distress Constitutional Narrative: Elderly female, obese, chronically ill-appearing, appears fatigued and somewhat lethargic, making appropriate eye contact but answering questions with only weak responses, no acute distress. General Appearance: cooperative and comfortable HEENT normocephalic, head/scalp atraumatic, hearing grossly normal bilaterally and nasal mucous membranes and turbinates normal Eyes PERRL, EOMs intact bilaterally and conjunctivae normal Neck full ROM Chest inspection of chest normal Resp Resp Narrative: Mildly decreased breath sounds bilaterally throughout, no wheezing or crackles noted. Cardio regular rate, regular rhythm, no murmurs and peripheral pulses 2+ throughout GI GI Narrative: Mild abdominal distention, no tenderness palpation noted. Back/Spine normal ROM Extremity normal to inspection Skin no rashes or lesions noted Neuro no focal motor deficits and no sensory deficits noted Assessment & Plan Assessment/Plan (1) Acute liver failure: (2) Atrial fibrillation with rapid ventricular response: PLAN: Plan Patient is an 82-year-old female who presented to [facility] ED on 06/08/2023 with nausea/vomiting, diarrhea and jaundice. 1. 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 GI following. High concern for new diagnosis of hepatocellular carcinoma given CT findings on admission. Very high MELD score on admit with poor prognosis. Patient and family opted for hospice care, changed to DNRCC status on 06/08. Hospice consulted. 2. A-fib with RVR ? Cardiology evaluated. Mildly elevated ventricular rate likely physiologic due to patient's discomfort and pain. Okay to continue home Lopressor at current dose. Hold anticoagulation in setting of severe thrombocytopenia as noted below. 3. Thrombocytopenia ? Secondary to acute liver failure and setting of BHANDARI. SCDs for DVT prophylaxis if desired. 4. Hypercoagulable state due to liver failure ? INR elevated to 2.5 on admit, no significant improvement with vitamin K. Chronic medical conditions: ? CAD s/p CABG and stents: Continue home aspirin, statin held. ? Nonsustained ventricular tachycardia: Continue home metoprolol as above. ? Hypothyroidism: Continue home Synthroid. ? Benign essential hypertension: Continue home losartan and Lasix. DVT prophylaxis: SCDs CODE STATUS: DNR CC Expected disposition: Inpatient hospice, tomorrow Total clinical time spent by myself addressing the patient's medical issues, reviewing all the data, and collaborating with patient's care team: 35 minutes. Charges/Coding Visit Charges Inpatient E&M: 45870 Subs Hosp L2
[2023-06-09 13:13] LABS: Pathologist Review Reviewed
--- NOTE | 2023-06-09 13:19 | CASEMGMT ---
Social Work SW went to room to speak w/pt and family. Daughters not in room. Friend in room called daughter, they will be back in the hospital about 2pm, will ask for SW when they get here. SW did ask pt how things went at home, pt states not well. She does state however that she did get her medications at discharge. DAYANA Green
--- NOTE | 2023-06-09 13:28 | SP.MBSS_ITS ---
Modified Barium Swallow Patient Information Medical History: PMH: asthma, atherosclerosis of coronary artery, CHF, COPD, HTN, GERD, hx of GI bleed, NSTEMI, HLD, thyroid nodule (See EMR for full PMH). She was recently admitted and managed for hyperbilirubinemia due to non alcoholic steatohepatitis and resultant cirrhosis. She was also managed for UTI and thrombocytopenia at that time. She presented to [facility] ED on 06/08/2023 with a complaint of jaundice with associated nausea, vomiting, and diarrhea for 3 days prior to admission. Chest x-ray showed a moderate left pleural effusion and left lower lobe airspace disease and CT of the abdomen and pelvis done showed hepatomegaly with multiple small indeterminate hypodense lesions throughout the hepatic parenchyma the findings possibly indicating primary or metastatic malignancy and enlarged portacaval and epigastric lymph nodes, with a left lower lobe consolidation with a small pleural effusion. She was referred for BSE due to concern for swallowing difficulty. She was recommended for soft and bite size textures / thin liquids with plan for MBSS to objectively assess swallow function and aspiration risk. Penetration-Aspiration Scale Penetration-Aspiration Scale: OBJECTIVE ASSESSMENT OF SWALLOW FUNCTION (QUANTITATIVE ? PER TRIAL): PENETRATION / ASPIRATION SCALE (CAMARENA): 1 = does not enter airway 2 = enters airway/above vocal folds/ejected 3 = enters airway/above vocal folds/not ejected 4 = enters airway/contacts vocal folds/ejected 5 = enters airway/contacts vocal folds/not ejected 6 = enters airway/below vocal folds/ejected 7 = enters airway/below vocal folds/not ejected despite effort 8 = enters airway/below vocal folds/no effort VIDEOFLOROSCOPIC SCALE SCORE (CAMARENA): Grade I = aspiration of material that has penetrated into the laryngeal v estibule, intact cough reflex Grade II = aspiration < 10 % of the bolus, intact cough reflex Grade III = aspiration of < 10 % of the bolus, reduced cough reflex or aspiration of > 10 % of the bolus, intact cough reflex Grade IV = aspiration of > 10 % of the bolus, reduced cough reflex
[2023-06-09] MEDS: Amox/Clavulanate 500 MG Tablet PO (15:17)
[2023-06-09] MEDS: Lactulose 20 GM/30 ML UDC PO (15:18)
--- NOTE | 2023-06-09 15:18 | CASEMGMT ---
Social Work Pt has a hospice referral. SW faxed all information, called and asked them to call pt's daughter Renata to set up an appointment time. SW spoke w/pt and daughters, explained referral was sent and someone should be calling Renata to set up an appointment time. Renata then followed SW into the [facility], spoke daughter spoke w/SW about entire process of what has happened w/pt over the last few weeks. SW offered support to daughter. SW will continue to follow for support and follow up for hospice referral. DAYANA Green
--- NOTE | 2023-06-09 15:30 | CASEMGMT ---
ANNAMARIE OLVERA chart review: Patient was admitted 05/24-05/31/23 for hyperbilirubinemia and N/V/D. See assessment from 05/24/23. Patient was discharged to home with [facility] and follow-up plans in place. Patient returned to [facility] ED on 06/08/23 for general illness and weakness. Patient admitted with hyperbilirubinemia and afib. Per hospitalist prognosis is poor and hospice referral being made. MALINA updated regaridng hospice referral.
--- NOTE | 2023-06-09 16:21 | CHAPLAIN ---
Type of Pastoral Visit _x__ Initial Visit ___ Follow-up Visit ___ On-call Visit ___ General Patient Visit ___ Spiritual Assessment ___ Family Conference ___ Bereavement ___ Rapid Response ___ Code Blue ___ Other (describe below) Pastoral Care Referral From _x__ Patient ___ Family _x__ Nurse ___ Physician ___ Director Personal ___ Complaints Coordinator ___ Other (describe below) Sacrament/Intervention _x__ Active listening ___ Anointing ___ Protestant ___ Bereavement ___ Communion ___ Debi exploration ___ ___ Life review _x__ Prayer ___ Reconciliation ___ Sacrament of Sick _x__ Supportive presence ___ Wedding ___ Other (describe below) Pastoral Comments patient was seen before a few months ago during an admission; daughter and best friend are in the room; pt is awake but appears with weakness and discomfort; daughter states that pt was not able to a have a test done; pt responds that she is disappointed; when asked about support the pt responds that she would like a prayer spoken; assurances of good care and the presence of God is given; offer of support to others in the room; daughter is very tearful and explains that all the family is already here or coming this week to see her ; offer of future visits and support given; after leaving the room the RN notified this servicer of need for support for this patient and the family as they consider enrolling in hospice care
--- NOTE | 2023-06-10 00:46 | DCINST_ITS ---
Discharge Instructions Diet Discharge Diet: No restrictions Activity Discharge Activity: No Restrictions Weight Bearing Status: Full weight bearing Follow Up Care Test Results: Test results from this visit will be discussed in further detail at your follow- up appointment, if applicable. Discharge Plan Admission Admit Date/Time: 06/08/23 07:55 Attending Provider: Nikolay Hernandez Primary Care Provider: Rupert Osullivan Consulting Providers: Mine Miller; Roseanna Johns; Tacho Iqbal; Trini Godoy; Gabby Live; Katharine Webster PLATFORM MATERIAL HANDLER MANAGER Discharge Orders/Prescriptions Prescriptions: Continued magnesium oxide [MagOx] 400 mg (241.3 mg magnesium) tablet 400 mg PO DAILY aspirin [Adult Aspirin Regimen] 81 mg tablet,delayed release (DR/EC) 81 mg PO DAILY albuterol sulfate 2.5 mg /3 mL (0.083 %) solution for nebulization 2.5 mg inhalation Q4H PRN (Reason: Sob &/Or Wheezing) Qty: 180 3RF lactulose 20 gram/30 mL solution 20 g PO TID Qty: 3000 2RF Rx Instructions: titrate till 2-3 loose stools daily Xifaxan 550 mg tablet 550 mg PO BID Qty: 60 5RF levothyroxine 88 MCG tablet 88 mcg PO DAILY mlosraturtls-owex-llthk acid 1 EACH tablet 1 ea PO DAILY fluticasone furoate-vilanterol [Breo Ellipta] 100-25 mcg/dose blister with device 1 inh inhalation DAILY Qty: 60 1RF tiotropium bromide [Spiriva with HandiHaler] 18 mcg capsule, w/inhalation device 1 cap inhalation DAILY Rx Instructions: puncture 1 cap using device; one dose = 2 inhalations spironolactone 25 mg tablet 25 mg PO DAILY furosemide 40 mg tablet 40 mg PO BID metoprolol succinate 25 mg tablet extended release 24 hr 25 mg PO DAILY potassium chloride 20 mEq tablet,ER particles/crystals 20 meq PO BID Rx Instructions: USE WHEN TAKING LASIX rosuvastatin 40 mg tablet 40 mg PO DAILY metoclopramide HCl 5 mg tablet 2.5 mg PO Q8H PRN (Reason: nausea and vomiting) ondansetron HCl 4 mg tablet 4 mg PO Q8H PRN (Reason: nausea and vomiting) (DME) Disability Parking Placard See Rx Instructions .Route .MEDSUPPLY Qty: 1 0RF Rx Instructions: As directed isosorbide mononitrate 20 mg tablet See Rx Instructions .ROUTE .COMPLEX Qty: 180 3RF Dose Instruction: TAKE 1 TABLET TWICE DAILY Rx Instructions: TAKE 1 TABLET TWICE DAILY Stiolto Respimat 2.5-2.5 mcg/actuation mist 2 inh inhalation DAILY Qty: 4 11RF nitroglycerin 0.4 mg tablet, sublingual See Rx Instructions .ROUTE .COMPLEX Qty: 25 3RF Dose Instruction: DISSOLVE 1 TABLET UNDER THE TONGUE EVERY 5 MINUTES NEEDED FOR CHEST PAIN Rx Instructions: DISSOLVE 1 TABLET UNDER THE TONGUE EVERY 5 MINUTES NEEDED FOR CHEST PAIN Ventolin HFA 90 mcg/actuation HFA aerosol inhaler 2 puff INHALATION Q4H PRN (Reason: shortness of breath or wheezing) Qty: 18 6RF pantoprazole 40 mg tablet,delayed release (DR/EC) 40 mg PO DAILY Qty: 90 3RF Discontinued Eliquis 5 mg tablet 5 mg PO BID Qty: 60 11RF Referrals / Follow Up: Rupert Osullivan MD [Primary Care Provider] - Disposition Disposition (needs filled in before D/C Order can be placed): Hospice in Medical Facility
--- NOTE | 2023-06-10 00:49 | PCM.DC.SUM ---
Providers Date of Admission: 06/08/23 Date of Discharge: 06/09/23 Primary Care Physician: Dr. Rupert Osullivan MD Consultations 06/08/23 08:41 Consult: Gastroenterology Routine Consulting Provider: [facility] Reason for Consult: cirrhosis with worsening liver function test EMERGENT Consult: No Notified: Yes Date Notified: 06/08/23 Time Notified: 08:00 Method of Notification: Text 06/08/23 10:19 Consult: Cardiology Routine Consulting Provider: Mine Miller Reason for Consult: family request EMERGENT Consult: No Notified: Yes Date Notified: 06/08/23 Time Notified: 10:19 Method of Notification: Text Consult: Abstracter / Pulmonary Medicine Routine Consulting Provider: [facility]/Pulmonary Med Reason for Consult: family request EMERGENT Consult: No Notified: Yes Date Notified: 06/09/23 Time Notified: 06:37 Method of Notification: Text 06/09/23 14:41 Consult: Hospice / Palliative Care Routine Consulting Provider: [facility] Reason for Consult: liver failure, hospice care EMERGENT Consult: No Notified: Yes Date Notified: 06/09/23 Time Notified: 14:41 Method of Notification: Answering Service Reason For Visit: HYPERBILIRUBINEMIA, AFIB Diagnosis Discharge Diagnosis (1) Acute liver failure: Status: Acute Code(s): K72.00 - Acute and subacute hepatic failure without coma (2) Atrial fibrillation with rapid ventricular response: Status: Acute Code(s): I48.91 - Unspecified atrial fibrillation Medications at Discharge Home Medications levothyroxine 88 mcg tablet 88 mcg PO DAILY 11/23/13 multivitamin-ferrous fumarate-folic acid 18 mg-400 mcg tablet 1 ea PO DAILY 02/07/17 magnesium oxide 400 mg (241.3 mg magnesium) tablet (MagOx) 400 mg PO DAILY 12/31/18 Disability Parking Placard #1 ea 05/30/20 aspirin 81 mg tablet,delayed release (Adult Aspirin Regimen) 81 mg PO DAILY 05/02/22 isosorbide mononitrate 20 mg tablet See Rx Instructions .Route .COMPLEX #180 tabs 06/10/22 tiotropium 2.5 mcg-olodaterol 2.5 mcg/actuation mist for inhalation (Stiolto Respimat) 2 inh inhalation DAILY #4 grams 10/28/22 nitroglycerin 0.4 mg sublingual tablet See Rx Instructions .Route .COMPLEX #25 tabs 04/02/23 albuterol sulfate 90 mcg/actuation aerosol inhaler (Ventolin HFA) 2 puff inhalation Q4H PRN shortness of breath or wheezing #18 grams 04/08/23 pantoprazole 40 mg tablet,delayed release 40 mg PO DAILY #90 tabs 04/08/23 albuterol sulfate 2.5 mg/3 mL (0.083 %) solution for nebulization 2.5 mg (3 mL) inhalation Q4H PRN Sob &/Or Wheezing #180 mL 05/08/23 fluticasone furoate 100 mcg-vilanterol 25 mcg/dose inhalation powder (Breo Ellipta) 1 inh inhalation DAILY #60 ea 05/31/23 spironolactone 25 mg tablet 25 mg PO DAILY 06/05/23 tiotropium bromide 18 mcg capsule with inhalation device (Spiriva with HandiHaler) 1 cap inhalation DAILY 06/05/23 lactulose 20 gram/30 mL oral solution 20 g (30 mL) PO TID #3,000 mL 06/06/23 rifaximin 550 mg tablet (Xifaxan) 550 mg PO BID #60 tabs 06/06/23 furosemide 40 mg tablet 40 mg PO BID DIURETIC 06/08/23 metoclopramide HCl 5 mg tablet 2.5 mg PO Q8H PRN nausea and vomiting 06/08/23 metoprolol succinate 25 mg tablet,extended release 24 hr 25 mg PO DAILY BLOOD PRESSURE 06/08/23 ondansetron HCl 4 mg tablet 4 mg PO Q8H PRN nausea and vomiting 06/08/23 potassium chloride 20 mEq tablet,extended release(part/cryst) 20 meq PO BID POTASSIUM 06/08/23 rosuvastatin 40 mg tablet 40 mg PO DAILY CHOLESTEROL 06/08/23 Hospital Course Operations None Procedures EKG and - (CXR, CT abdomen pelvis) Summary of Care Provided Minutes Spent on Discharge: 35 Hospital Course: Patient is an 82-year-old female who presented to [facility] ED on 06/08/2023 with nausea/vomiting, diarrhea and jaundice. Hospital course as noted below. Patient discharged to inpatient hospice on 06/08. 1. 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 GI following. High concern for new diagnosis of hepatocellular carcinoma given CT findings on admission. Very high MELD score on admit with poor prognosis. Patient and family opted for hospice care, changed to DNRCC status on 06/08. Discharged to inpatient hospice unit on 06/08. 2. A-fib with RVR ? Cardiology evaluated. Mildly elevated ventricular rate likely physiologic due to patient's discomfort and pain. Okay to continue home Lopressor at current dose. Hold anticoagulation in setting of severe thrombocytopenia as noted below. 3. Thrombocytopenia ? Secondary to acute liver failure and setting of BHANDARI. SCDs for DVT prophylaxis if desired. 4. Hypercoagulable state due to liver failure ? INR elevated to 2.5 on admit, no significant improvement with vitamin K. Chronic medical conditions: ? CAD s/p CABG and stents: Continue home aspirin, statin held. ? Nonsustained ventricular tachycardia: Continue home metoprolol as above. ? Hypothyroidism: Continue home Synthroid. ? Benign essential hypertension: Continue home losartan and Lasix. Total clinical time spent by myself addressing the patient's discharge needs: 35 minutes. Physical Exam Const alert and no apparent distress Constitutional Narrative: Elderly female, obese, chronically ill-appearing, appears fatigued and somewhat lethargic, making appropriate eye contact but answering questions with only weak responses, no acute distress. General Appearance: cooperative and comfortable HEENT normocephalic, head/scalp atraumatic, hearing grossly normal bilaterally and nasal mucous membranes and turbinates normal Eyes PERRL, EOMs intact bilaterally and conjunctivae normal Neck full ROM Chest inspection of chest normal Resp Resp Narrative: Mildly decreased breath sounds bilaterally throughout, no wheezing or crackles noted. Cardio regular rate, regular rhythm, no murmurs and peripheral pulses 2+ throughout GI GI Narrative: Mild abdominal distention, no tenderness palpation noted. Back/Spine normal ROM Extremity normal to inspection Skin no rashes or lesions noted Neuro no focal motor deficits and no sensory deficits noted Weight / BMI Weight Weight: 77.1 kg Body Mass Index (BMI) 34.3 ABG / Lab / Microbiology Data 06/09/23 06:30 06/09/23 06:30 Laboratory: Laboratory Results - last 24 hr 06/08/23 05:11: Diff Path Review Reviewed 06/09/23 06:30: WBC FEED CRUSHER OPERATOR, Corrected WBC 10.7, RBC 3.10 L, Hgb 9.5 L, Hct 28.3 L, MCV 91.3, MCH 30.6, MCHC 33.6, RDW Std Deviation 58.1 H, RDW Coeff of Ryan 18.4 H, Plt Count 29 L*, MPV TNP, Immature Gran % (Auto) FEED CRUSHER OPERATOR, Neut % (Auto) FEED CRUSHER OPERATOR, Lymph % (Auto) FEED CRUSHER OPERATOR, [place] % (Auto) FEED CRUSHER OPERATOR, Eos % (Auto) FEED CRUSHER OPERATOR, Baso % (Auto) FEED CRUSHER OPERATOR, Absolute Neuts (auto) 7.3, Absolute Lymphs (auto) 2.16, Total Counted 100, Neutrophils % (Manual) 64, Band Neutrophils % 8 H, Lymphocytes % (Manual) 10 L, Monocytes % (Manual) 11 H, Eosinophils % (Manual) 3, Metamyelocytes % 2 H, Myelocytes % 2 H, Nucleated RBC % 5.3 H, Nucleated RBCs/100 WBC 8 H, Diff Path Review August, Platelet Estimate MOD DEC, RBC Morphology NORM C+C, Sodium 129 L, Potassium 4.6, Chloride 97 L, Carbon Dioxide 24.0, Anion Gap 8, BUN 41 H, Creatinine 1.49 H, Estim Creat Clear Calc 26.26, Est GFR (MDRD) Af Amer 43 L, Est GFR (MDRD) Non-Af 36 L, BUN/Creatinine Ratio 27.5 H, Glucose 140 H, Calcium 9.0, Total Bilirubin 9.20 H, AST 495 H, ALT 163 H, Alkaline Phosphatase 382 H, Total Protein 4.9 L, Albumin 2.1 L, Globulin 2.8, Albumin/Globulin Ratio 0.8 L 06/09/23 08:56: PT 21.5 H, INR 1.9 Microbiology: Microbiology 06/09/23 03:13 Stool Stool Occult Blood (TRISTIN) - Final Occult Blood Positive D/C Instructions Discharge Diet: No restrictions Weight Bearing Status: Full weight bearing Meaningful Use Info Meaningful Use Diagnoses (Choose all that apply): None applicable Discharge Plan Admission Admit Date/Time: 06/08/23 07:55 Attending Provider: Nikolay Hernandez Primary Care Provider: Rupert Osullivan Consulting Providers: Mine Miller; Roseanna Johns; Tacho Iqbal; Trini Godoy; Gabby Live; Katharine Webster FEED CRUSHER OPERATOR Discharge Orders/Prescriptions Prescriptions: Continued magnesium oxide [MagOx] 400 mg (241.3 mg magnesium) tablet 400 mg PO DAILY aspirin [Adult Aspirin Regimen] 81 mg tablet,delayed release (DR/EC) 81 mg PO DAILY albuterol sulfate 2.5 mg /3 mL (0.083 %) solution for nebulization 2.5 mg inhalation Q4H PRN (Reason: Sob &/Or Wheezing) Qty: 180 3RF lactulose 20 gram/30 mL solution 20 g PO TID Qty: 3000 2RF Rx Instructions: titrate till 2-3 loose stools daily Xifaxan 550 mg tablet 550 mg PO BID Qty: 60 5RF levothyroxine 88 MCG tablet 88 mcg PO DAILY vqhfajnwrgyr-opsg-oftns acid 1 EACH tablet 1 ea PO DAILY fluticasone furoate-vilanterol [Breo Ellipta] 100-25 mcg/dose blister with device 1 inh inhalation DAILY Qty: 60 1RF tiotropium bromide [Spiriva with HandiHaler] 18 mcg capsule, w/inhalation device 1 cap inhalation DAILY Rx Instructions: puncture 1 cap using device; one dose = 2 inhalations spironolactone 25 mg tablet 25 mg PO DAILY furosemide 40 mg tablet 40 mg PO BID metoprolol succinate 25 mg tablet extended release 24 hr 25 mg PO DAILY potassium chloride 20 mEq tablet,ER particles/crystals 20 meq PO BID Rx Instructions: USE WHEN TAKING LASIX rosuvastatin 40 mg tablet 40 mg PO DAILY metoclopramide HCl 5 mg tablet 2.5 mg PO Q8H PRN (Reason: nausea and vomiting) ondansetron HCl 4 mg tablet 4 mg PO Q8H PRN (Reason: nausea and vomiting) (DME) Disability Parking Placard See Rx Instructions .Route .MEDSUPPLY Qty: 1 0RF Rx Instructions: As directed isosorbide mononitrate 20 mg tablet See Rx Instructions .ROUTE .COMPLEX Qty: 180 3RF Dose Instruction: TAKE 1 TABLET TWICE DAILY Rx Instructions: TAKE 1 TABLET TWICE DAILY Stiolto Respimat 2.5-2.5 mcg/actuation mist 2 inh inhalation DAILY Qty: 4 11RF nitroglycerin 0.4 mg tablet, sublingual See Rx Instructions .ROUTE .COMPLEX Qty: 25 3RF Dose Instruction: DISSOLVE 1 TABLET UNDER THE TONGUE EVERY 5 MINUTES NEEDED FOR CHEST PAIN Rx Instructions: DISSOLVE 1 TABLET UNDER THE TONGUE EVERY 5 MINUTES NEEDED FOR CHEST PAIN Ventolin HFA 90 mcg/actuation HFA aerosol inhaler 2 puff INHALATION Q4H PRN (Reason: shortness of breath or wheezing) Qty: 18 6RF pantoprazole 40 mg tablet,delayed release (DR/EC) 40 mg PO DAILY Qty: 90 3RF Discontinued Eliquis 5 mg tablet 5 mg PO BID Qty: 60 11RF Referrals / Follow Up: Rupert Osullivan MD [Primary Care Provider] - Disposition Disposition (needs filled in before D/C Order can be placed): Hospice in Medical Facility Charges/Coding Visit Charges Inpatient E&M: 40904 Disch Hosp >30min
--- NOTE | 2023-06-10 15:30 | CASEMGMT ---
ANNAMARIE OLVERA chart review: Patient was admitted 05/24-05/31/23 for hyperbilirubinemia and N/V/D. See assessment from 05/24/23. Patient was discharged to home with [facility] and follow-up plans in place. Patient returned to [facility] ED on 06/08/23 for general illness and weakness. Patient admitted with hyperbilirubinemia and afib. Per hospitalist prognosis is poor and hospice referral being made. MALINA updated regaridng hospice referral.
[2023-06-11 09:15] LABS: Pathologist Review Reviewed
[2023-06-11 12:10] LABS: AFP, Tumor Marker < 1.8 ng/mL (0.0-8.7); Carbohydrate AG 19-9 2211 U/mL (0-35)
== END 2023-06-09 21:20 | disposition hospice, inpatient (51) | DRG 435 ==
LOC: ED 07:57 → PCU 08:06
PROVIDERS: Internal Medicine Gastroenterology; Admitting Provider Student in an Organized Health Care Education/Training Program; Emergency Provider Emergency Medicine; PCP Family Medicine; Visit Provider Hospitalist
DX: C22.0 Liver cell carcinoma (principal); K72.00 Acute and subacute hepatic failure without coma; J18.9 Pneumonia, unspecified organism; E46 Unspecified protein-calorie malnutrition; D68.59 Other primary thrombophilia; I48.20 Chronic atrial fibrillation, unspecified; I47.20 Ventricular tachycardia, unspecified; J90 Pleural effusion, not elsewhere classified; D69.6 Thrombocytopenia, unspecified; I11.0 Hypertensive heart disease with heart failure; K72.10 Chronic hepatic failure without coma; K74.60 Unspecified cirrhosis of liver; I50.9 Heart failure, unspecified; E89.0 Postprocedural hypothyroidism; I25.10 Atherosclerotic heart disease of native coronary artery without angina pectoris; E78.5 Hyperlipidemia, unspecified; K75.81 Nonalcoholic steatohepatitis (NASH); Z68.34 Body mass index [BMI] 34.0-34.9, adult; Z79.51 Long term (current) use of inhaled steroids; Z79.01 Long term (current) use of anticoagulants; Z87.891 Personal history of nicotine dependence; Z95.5 Presence of coronary angioplasty implant and graft; Z82.3 Family history of stroke; Z66 Do not resuscitate; Z80.3 Family history of malignant neoplasm of breast; Z51.5 Encounter for palliative care; Z95.1 Presence of aortocoronary bypass graft
CPT/HCPCS: 36415; 71045; 73010; 74177; 80048; 80053; 80076; 81001; 82105; 82140; 82274; 82378; 82803; 83605; 83735; 83880; 84443; 85025; 85610; 85652; 85730; 86140; 86300; 86301; 86304; 87086; 92610; 93005; 94640; 94668; 96360; 97162; 97166; 97802; 99283; 99284; J7030; J7040; J7120; Q9967; A4216; J2405